=== PATIENT | female | born 1935 | race Caucasian/White ===

== ENCOUNTER 2018-02-17 12:08 | Inpatient (IN) | payer MEDICARE ==
[~2018-02-17] VITALS: Ht 157.5 cm; Wt 88.9 kg
[~2018-02-17 12:08] MED LIST: ACET325T38 PO; ALLO100T PO; BMT1T PO; CITA10TA7 PO; FENO134C PO; HYDR12.5 PO; HYDR25TA4 PO; LISI1TAB10 PO; MELO-195 PO; METR500T21 PO; OMEP20TA2 PO; SACC250C PO
[2018-02-17 12:25] LABS: BASOPHILS % (AUTO) 0 % (0-10); EOSINOPHILS % (AUTO) 0 % (0-10); HEMATOCRIT 39 % (35-52); HEMOGLOBIN 13.1 G/DL (11.5-16.0); LYMPHOCYTES # (AUTO) 0.5 X 10^3 (1.0-4.0); LYMPHOCYTES % (AUTO) 5 % (12-44); MEAN CORPUSCULAR HEMOGLOBIN 31 PG (25-34); MEAN CORPUSCULAR HGB CONC 34 G/DL (32-36); MEAN CORPUSCULAR VOLUME 93 FL (80-99); MEAN PLATELET VOLUME 11.2 FL (7.4-10.4); MONOCYTES # (AUTO) 0.6 X 10^3 (0.0-1.0); MONOCYTES % (AUTO) 6 % (0-12); NEUTROPHILS # (AUTO) 8.8 X 10^3 (1.8-7.8); NEUTROPHILS % (AUTO) 88 % (42-75); PLATELET COUNT 152 10^3/uL (130-400); RED BLOOD COUNT 4.22 10^6/uL (4.35-5.85); RED CELL DISTRIBUTION WIDTH 16.7 % (10.0-14.5)
[2018-02-17 12:44] LABS: ALANINE AMINOTRANSFERASE 64 U/L (0-55); ALBUMIN 3.8 GM/DL (3.2-4.5); ALKALINE PHOSPHATASE 93 U/L (40-136); BILIRUBIN,TOTAL 1.2 MG/DL (0.1-1.0); BUN/CREATININE RATIO 19; CALCIUM 11.1 MG/DL (8.5-10.1); CARBON DIOXIDE 27 MMOL/L (21-32); CHLORIDE 102 MMOL/L (98-107); CREATININE SERUM 0.83 MG/DL (0.60-1.30); GFR ESTIMATED > 60; GLUCOSE 123 MG/DL (70-105); POTASSIUM 3.5 MMOL/L (3.6-5.0); SODIUM 137 MMOL/L (135-145); TOTAL PROTEIN 6.3 GM/DL (6.4-8.2)
--- NOTE | 2018-02-17 12:47 | Diagnostic Imaging Report ---
PROCEDURE: CT head and CT cervical spine without contrast. TECHNIQUE: Multiple contiguous axial images were obtained through the brain and cervical spine without the use of intravenous contrast. Sagittal and coronal reformations through the cervical spine were then performed. INDICATION: Head and neck pain, found down. COMPARISON: None. CT HEAD: The ventricles are normal in size, shape and position. There is no midline shift or mass effect. There is no hemorrhage or evidence of acute ischemia. No cerebral edema is identified. Chronic small vessel ischemic changes are present. There is no skull fracture. Paranasal sinuses and mastoids are clear. IMPRESSION: No acute intracranial abnormalities. CT CERVICAL SPINE: Alignment is normal. There is no subluxation or fracture. No osseous lesion seen. Moderate degenerative changes are seen throughout. There is no paraspinous mass. IMPRESSION: No traumatic malalignment or fracture. Dictated by: Dictated on workstation # [id number]
[2018-02-17 12:48] LABS: LYMPHOCYTES % (MANUAL) 3 %; MONOCYTES % (MANUAL) 10 %; NEUTROPHILS % (MANUAL) 87 %; RBC MORPH NORMAL
--- NOTE | 2018-02-17 13:01 | Diagnostic Imaging Report ---
INDICATION: Found down, confusion. COMPARISON: None. FINDINGS: A single view of the pelvis demonstrates no fracture or dislocation. Articular surfaces are age-appropriate. No osseous lesion. IMPRESSION: No fracture or dislocation. Dictated by: Dictated on workstation # [id number]
--- NOTE | 2018-02-17 13:01 | ED Fall/Injury ---
General Chief Complaint: Trauma-Non Activation Stated Complaint: FALL Nursing Triage Note: patient was found on floor this morning by son, patient reports being found on the side of the bed this morning Source: patient, family, EMS Exam Limitations: no limitations History of Present Illness Date Seen by Provider: Feb 17, 2018 Time Seen by Provider: 12:10 Initial Comments This 82-year-old woman presents to the emergency room via EMS after being found on the floor in her home. She is suspected of having fallen sometime this morning. Family thinks she fell while trying to get ready this morning because the drawers on her dresser were pulled out. Patient seems to think she fell out of bed. She is alert but a little confused. Last known well time per family was sometime yesterday evening. She has contusions on the right side of her face. She was also noted to have a large bruise on the right lower back. She denies any neck pain or tenderness. She was ambulatory with assistance at home for EMS. She is normally self-sufficient living at home alone. She appears anxious. Family does note the patient has a large liver tumor. Patient elected not to pursue biopsy or treatment of this mass. Allergies and Home Medications Allergies Coded Allergies: No Known Drug Allergies (Unverified , 10/04/13) Home Medications Acetaminophen 325 Mg Tablet, 325 MG PO Q6H, (Reported) Allopurinol 100 Mg Tablet, 100 MG PO DAILY, (Reported) Citalopram Hydrobromide 10 Mg Tablet, 10 MG PO DAILY, (Reported) HAS NOT STARTED THIS MEDICATION PRIOR TO ADMISSION (DOES HAVE AT HOME) Fenofibrate,Micronized 134 Mg Capsule, 134 MG PO DAILY, (Reported) Hydrochlorothiazide 12.5 Mg Capsule, 25 MG PO DAILY, (Reported) INCREASED TO 25 MG / TAKING 2 (12.5 MG) TABLETS Metronidazole 500 Mg Tablet, 500 MG PO TID Prescribed by: AWA NIXON on 05/09/17 0812 Saccharomyces Boulardii 250 Mg Capsule, 250 MG PO BID, (Reported) Patient Home Medication List Home Medication List Reviewed: Yes Constitutional: no symptoms reported Eyes: No Symptoms Reported Ears, Nose, Mouth, Throat: see HPI Respiratory: no symptoms reported Gastrointestinal: no symptoms reported Genitourinary: no symptoms reported : No Musculoskeletal: see HPI Skin: see HPI Psychiatric/Neurological: See HPI Past Mwsoisy-Bpebno-Majtdy Hx Patient Social History Alcohol Use: Denies Use Recreational Drug Use: No 2nd Hand Smoke Exposure: No Recent Foreign Travel: No Contact w/Someone Who Travel: No Recent Infectious Disease Expo: No Recent Hopitalizations: No Immunizations Up To Date Tetanus Booster (TDap): Unknown Date of Pneumonia Vaccine: Aug 20, 2013 Date of Influenza Vaccine: Sep 01, 2016 Seasonal Allergies Seasonal Allergies: No Surgeries History of Surgeries: Yes (henry total knee replacement; rectal fistula) Surgeries: Gallbladder, Hysterectomy, Orthopedic Respiratory History of Respiratory Disorde: No Currently Using CPAP: No Currently Using BIPAP: No Cardiovascular History of Cardiac Disorders: Yes (edema to lower ext) Neurological History of Neurological Disord: No 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 Genitourinary History of Genitourinary Disor: No Gastrointestinal History of Gastrointestinal Di: Yes Gastrointestinal Disorders: C-Diff Musculoskeletal History of Musculoskeletal Dis: Yes (ARTHRITIS) Musculoskeletal Disorders: Arthritis Endocrine History of Endocrine Disorders: No HEENT History of HEENT Disorders: No Cancer History of Cancer: Yes (recent diagnosis; no treatment at this time) Cancer: Liver Did You Recieve Any Treatments: No Psychosocial History of Psychiatric Problem: Yes Behavioral Health Disorders: Anxiety, Depression Integumentary History of Skin or Integumenta: No (rash-lt lower leg) Skin/Integumentary Disorders: Recent Skin Changes Blood Transfusions History of Blood Disorders: No Family Medical History Family Medial History: Arthritis 19 MOTHER CVA 19 FATHER Cardiovascular disease G8 SISTER FH: colon cancer 19 MOTHER FH: prostate cancer 19 FATHER Irritable bowel syndrome daughter Renal stone 19 FATHER daughter Physical Exam Vital Signs Vital Signs - First Documented 02/17/18 12:11 Temp 100.0 Pulse 66 Resp 18 B/P (MAP) 134/72 (92) Pulse Ox 98 Capillary Refill : Less Than 3 Seconds General Appearance: WD/WN, mild distress (anxious) HEENT: PERRL/EOMI, other (ecchymosis to the right side of her face and scalp. No dental injury. Parent by injury to the tip of her tongue. 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 Finger to nose normal) Skin: warm/dry, ecchymosis (right side of face and right lower back) [place] Coma Score Best Eye Response: (4) Open Spontaneously Best Verbal Response: (4) Confused Conversation Best Motor Response: (6) Obeys Commands Kassandra Total: 14 Progress/Results/Core Measures Results/Orders Lab Results Laboratory Tests Test 02/17/18 12:15 Range/Units White Blood Count 10.0 4.3-11.0 10^3/uL Red Blood Count 4.22 L 4.35-5.85 10^6/uL Hemoglobin 13.1 11.5-16.0 G/DL Hematocrit 39 35-52 % Mean Corpuscular Volume 93 80-99 FL Mean Corpuscular Hemoglobin 31 25-34 PG Mean Corpuscular Hemoglobin Concent 34 32-36 G/DL Red Cell Distribution Width 16.7 H 10.0-14.5 % Platelet Count 152 130-400 10^3/uL Mean Platelet Volume 11.2 H 7.4-10.4 FL Neutrophils (%) (Auto) 88 H 42-75 % Lymphocytes (%) (Auto) 5 L 12-44 % Monocytes (%) (Auto) 6 0-12 % Eosinophils (%) (Auto) 0 0-10 % Basophils (%) (Auto) 0 0-10 % Neutrophils # (Auto) 8.8 H 1.8-7.8 X 10^3 Lymphocytes # (Auto) 0.5 L 1.0-4.0 X 10^3 Monocytes # (Auto) 0.6 0.0-1.0 X 10^3 Eosinophils # (Auto) 0.0 0.0-0.3 10^3/uL Basophils # (Auto) 0.0 0.0-0.1 10^3/uL Neutrophils % (Manual) 87 % Lymphocytes % (Manual) 3 % Monocytes % (Manual) 10 % Blood Morphology Comment NORMAL Sodium Level 137 135-145 MMOL/L Potassium Level 3.5 L 3.6-5.0 MMOL/L Chloride Level 102 98-107 MMOL/L Carbon Dioxide Level 27 21-32 MMOL/L Anion Gap 8 5-14 MMOL/L Blood Urea Nitrogen 16 7-18 MG/DL Creatinine 0.83 0.60-1.30 MG/DL Estimat Glomerular Filtration Rate > 60 BUN/Creatinine Ratio 19 Glucose Level 123 H 70-105 MG/DL Calcium Level 11.1 H 8.5-10.1 MG/DL Total Bilirubin 1.2 H 0.1-1.0 MG/DL Aspartate Amino Transf (AST/SGOT) 128 H 5-34 U/L Alanine Aminotransferase (ALT/SGPT) 64 H 0-55 U/L Alkaline Phosphatase 93 40-136 U/L Total Creatine Kinase 1416 H 29-168 U/L Total Protein 6.3 L 6.4-8.2 GM/DL Albumin 3.8 3.2-4.5 GM/DL My Orders Orders - LUIS TOBIN MD Ct Head/Cervical Spine Wo (02/17/18 12:20) Chest 1 View, Ap/Pa Only (02/17/18 12:20) Elbow, Right, 3 Views (02/17/18 12:20) Pelvis (02/17/18 12:20) Cbc With Automated Diff (02/17/18 12:21) Comprehensive Metabolic Panel (02/17/18 12:21) Ua Culture If Indicated (02/17/18 12:21) Manual Differential (02/17/18 12:15) Creatine Kinase (02/17/18 13:04) Saline Lock/Iv-Start (02/17/18 13:37) Ns Iv 1000 Ml (Sodium Chloride 0.9%) (02/17/18 13:37) Ct Chest/Abdomen/Pelvis W (02/17/18 14:19) Iohexol Injection (Omnipaque 350 Mg/Ml 1 (02/17/18 14:30) Ns (Ivpb) (Sodium Chloride 0.9% Ivpb Bag (02/17/18 14:30) Medications Given in ED Current Medications Medications Dose Ordered Sig/Sunita Route Start Time Stop Time Status Last Admin Dose Admin Iohexol 100 ml ONCE ONCE IV 02/17/18 14:30 02/17/18 14:31 DC 02/17/18 14:37 100 ML Sodium Chloride 100 ml ONCE ONCE IV 02/17/18 14:30 02/17/18 14:31 DC 02/17/18 14:37 100 ML Vital Signs/I&O Vital Sign - Last 12Hours 02/17/18 12:11 Temp 100.0 Pulse 66 Resp 18 B/P (MAP) 134/72 (92) Pulse Ox 98 Blood Pressure Mean: 92 Progress Note : Progress Note Patient received a liter of IV fluids in the emergency room. Rhabdomyolysis was noted on labs. Patient did not produce a urine specimen in the ER. A UA was ordered for the floor. Imaging was unremarkable for acute injury. Dr. Vallejo was consulted as trauma surgeon remediation technician. Diagnostic Imaging Diagonstic Imaging: CT Plain Films/CT/US/NM/MRI: c-spine, head Comments CT head and cervical spine viewed by me and report reviewed. See report below: NAME: JESSICA PAYAN [facility] REC#: [id number] PT STATUS: REG ER : 1935 PHYSICIAN: LUIS TOBIN MD ADMIT DATE: 02/17/18/ER Draft Date of Exam:02/17/18 CT HEAD/CERVICAL SPINE WO PROCEDURE: CT head and CT cervical spine without contrast. TECHNIQUE: Multiple contiguous axial images were obtained through the brain and cervical spine without the use of intravenous contrast. Sagittal and coronal reformations through the cervical spine were then performed. INDICATION: Head and neck pain, found down. COMPARISON: None. CT HEAD: The ventricles are normal in size, shape and position. There is no midline shift or mass effect. There is no hemorrhage or evidence of acute ischemia. No cerebral edema is identified. Chronic small vessel ischemic changes are present. There is no skull fracture. Paranasal sinuses and mastoids are clear. IMPRESSION: No acute intracranial abnormalities. CT CERVICAL SPINE: Alignment is normal. There is no subluxation or fracture. No osseous lesion seen. Moderate degenerative changes are seen throughout. There is no paraspinous mass. IMPRESSION: No traumatic malalignment or fracture. Dictated on workstation # [id number] Dict: 02/17/18 1241 Trans: 02/17/18 1247 [facility] [id number] Interpreted by: AWA MOORE Diagonstic Imaging: CT Plain Films/CT/US/NM/MRI: chest, abdomen, pelvis Comments CT chest, abdomen and pelvis viewed by me and report reviewed. See report below : NAME: JESSICA PAYAN [facility] REC#: [id number] PT STATUS: REG ER : 1935 PHYSICIAN: LUIS TOBIN MD ADMIT DATE: 02/17/18/ER Signed Date of Exam:02/17/18 CT CHEST/ABDOMEN/PELVIS W PROCEDURE: CT chest, abdomen, and pelvis with contrast. TECHNIQUE: Multiple contiguous axial images were obtained through the chest, abdomen, and pelvis after the administration of intravenous contrast. INDICATION: Confusion, found down. COMPARISON: None. CT chest: The heart and mediastinal structures are normal. There is no mediastinal hematoma or pericardial effusion. Coronary artery disease is present. There is no lymphadenopathy. The lungs are clear, bilaterally. No pneumothorax, effusion or contusion is seen. There is no acute bony abnormality. IMPRESSION: Cardiac enlargement with coronary artery disease; otherwise, negative CT chest. CT abdomen/pelvis: There is a peripherally enhancing mass in the right hepatic lobe of the liver which has the CT characteristics of a benign hemangioma. The mass measures approximately 7 cm. There is no hematoma. Otherwise, liver is unremarkable. The spleen, pancreas, adrenal glands, kidneys, vascular structures and bowel are unremarkable. There is no free air or free fluid. No hemoperitoneum is seen. Distal ureters and urinary bladder are normal. Uterus is surgically absent. The osseous structures are normal. There is no fracture. IMPRESSION: 1. Right hepatic lobe liver hemangioma. ?. No acute trauma within the abdomen or pelvis. 3. Surgically absent uterus and gallbladder. Dictated by: Dictated on workstation # [id number] Dict: 02/17/18 1458 Trans: 02/17/18 1537 [facility] [id number] Interpreted by: AWA MOORE Electronically signed by: AWA MOORE 02/17/18 1537 Departure Impression Impression: Primary Impression: Rhabdomyolysis Qualified Codes: T79.6XXA - Traumatic ischemia of muscle, initial encounter Additional Impressions: Fall on same level Qualified Codes: W18.30XA - Fall on same level, unspecified, initial encounter Confusion Disposition: ADMITTED INPATIENT Condition: Stable Admissions Decision to Admit Reason: Admit from ER (General) Decision to Admit/Date: Feb 17, 2018 Time/Decision to Admit Time: 13:35 Departure-Patient Inst. Referrals: AWA NIXON MD (PCP/Family) Primary Care Physician LUIS TOBIN MD Feb 17, 2018 13:01
--- NOTE | 2018-02-17 13:02 | Diagnostic Imaging Report ---
INDICATION: Found down. Right elbow pain. COMPARISON: None. FINDINGS: Three views of the right elbow demonstrate no fracture or dislocation. Articular surfaces are normal. There is no joint effusion. IMPRESSION: Negative right elbow. Dictated by: Dictated on workstation # [id number]
--- NOTE | 2018-02-17 13:02 | Diagnostic Imaging Report ---
INDICATION: Confusion, found down. COMPARISON: 05/04/2017. Single view of the chest demonstrates cardiac enlargement with slight central vascular congestion. There is no pneumothorax or effusion. Osseous structures are normal. IMPRESSION: Cardiac enlargement with central vascular congestion. Dictated by: Dictated on workstation # [id number]
[2018-02-17] MEDS ORDERED: NS IV 1000 ML 1,000 ML IV SCH ×2 (13:37→20:15)
[2018-02-17] MEDS ORDERED: IOHEXOL 350 MG/ML 100 ML (OMNIPAQUE 350) VIAL IV ONE (14:30)
[2018-02-17] MEDS ORDERED: NS 100 ML (IVPB) BAG IV ONE (14:30)
--- NOTE | 2018-02-17 15:06 | Consultation ---
History of Present Illness History of Present Illness Patient Consulted On(black/time) 02/17/18 15:04 Date Seen by Provider: Feb 17, 2018 Time Seen by Provider: 12:41 History of Present Illness Seen and evaluated in ED Consult requested by Dr. Walker Patient is an 82 year old female found on the floor in her bedroom. She is unsure how long she was laying there. Unknown loss of consciousness. Has bruising right forehead/temporal region with hematoma. Pain in the right flank area. Also some pain to the right elbow. Patient family at bedside and feel she is slightly confused to her baseline. CT head spine no acute process. right elbow no acute process, chest and pelvis xray no acute process, ct chest abdomen pelvis no acute process. Allergies and Home Medications Allergies Coded Allergies: No Known Drug Allergies (Unverified , 10/04/13) Home Medications Acetaminophen 325 Mg Tablet, 325 MG PO Q6H PRN for PAIN-MILD TO MODERATE, ( Reported) Allopurinol 100 Mg Tablet, 100 MG PO DAILY, (Reported) Citalopram Hydrobromide 10 Mg Tablet, 10 MG PO DAILY, (Reported) Fenofibrate,Micronized 134 Mg Capsule, 134 MG PO DAILY, (Reported) Hydrochlorothiazide 25 Mg Tablet, 25 MG PO DAILY, (Reported) Metronidazole 250 Mg Tablet, 250 MG PO BID, (Reported) Saccharomyces Boulardii 250 Mg Capsule, 250 MG PO BID, (Reported) Patient Home Medication List Home Medication List Reviewed: Yes Past Caklwug-Cutqzo-Rfyezz Hx Patient Social History Alcohol Use: Denies Use Recreational Drug Use: No 2nd Hand Smoke Exposure: No Recent Foreign Travel: No Contact w/Someone Who Travel: No Recent Infectious Disease Expo: No Recent Hopitalizations: No Immunizations Up To Date Tetanus Booster (TDap): Unknown Date of Pneumonia Vaccine: Aug 20, 2013 Date of Influenza Vaccine: Sep 01, 2016 Seasonal Allergies Seasonal Allergies: No Surgeries History of Surgeries: Yes (henry total knee replacement; rectal fistula) Surgeries: Gallbladder, Hysterectomy, Orthopedic Respiratory History of Respiratory Disorde: No Cardiovascular History of Cardiac Disorders: Yes (edema to lower ext) Neurological History of Neurological Disord: No 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 Genitourinary History of Genitourinary Disor: No Gastrointestinal History of Gastrointestinal Di: Yes Gastrointestinal Disorders: C-Diff Musculoskeletal History of Musculoskeletal Dis: Yes (ARTHRITIS) Musculoskeletal Disorders: Arthritis Endocrine History of Endocrine Disorders: No HEENT History of HEENT Disorders: No Cancer History of Cancer: Yes (recent diagnosis; no treatment at this time) Cancer: Liver Psychosocial History of Psychiatric Problem: Yes Behavioral Health Disorders: Anxiety, Depression Integumentary History of Skin or Integumenta: No (rash-lt lower leg) Skin/Integumentary Disorders: Recent Skin Changes Blood Transfusions History of Blood Disorders: No Family Medical History Significant Family History: No Pertinent Family Hx Family Medial History: Arthritis 19 MOTHER CVA 19 FATHER Cardiovascular disease G8 SISTER FH: colon cancer 19 MOTHER FH: prostate cancer 19 FATHER Irritable bowel syndrome daughter Renal stone 19 FATHER daughter Review of Systems-General Constitutional: no symptoms reported EENTM: no symptoms reported Respiratory: no symptoms reported Cardiovascular: no symptoms reported Gastrointestinal: no symptoms reported Genitourinary: no symptoms reported Musculoskeletal: back pain Skin: other (bruising right flank and right head) Psychiatric/Neurological: No Symptoms Reported Physical Exam-General Problems Physical Exam Vital Signs Vital Signs - First Documented 02/17/18 12:11 Temp 100.0 Pulse 66 Resp 18 B/P (MAP) 134/72 (92) Pulse Ox 98 Capillary Refill : Less Than 3 Seconds General Appearance: no apparent distress (GCS 14) HEENT: PERRL/EOMI, normal ENT inspection Neck: non-tender, full range of motion, supple, normal inspection Respiratory: normal breath sounds, no respiratory distress, no accessory muscle use Cardiovascular: regular rate, rhythm Gastrointestinal: non tender, soft, no organomegaly, no pulsatile mass, other ( right flank echymosis) Rectal: deferred Back: CVA tenderness (R) (echymosis) Extremities: non-tender, normal inspection Neurologic/Psychiatric: alert (answeres questions but slight confusion), normal mood/affect Skin: warm/dry, ecchymosis (right forehead/temoratl area, right flank) Data Review Labs Laboratory Tests 02/17/18 12:15: White Blood Count 10.0, Red Blood Count 4.22L, Hemoglobin 13.1, Hematocrit 39, Mean Corpuscular Volume 93, Mean Corpuscular Hemoglobin 31, Mean Corpuscular Hemoglobin Concent 34, Red Cell Distribution Width 16.7H, Platelet Count 152, Mean Platelet Volume 11.2H, Neutrophils (%) (Auto) 88H, Lymphocytes (%) (Auto) 5L, Monocytes (%) (Auto) 6, Eosinophils (%) (Auto) 0, Basophils (%) (Auto) 0, Neutrophils # (Auto) 8.8H, Lymphocytes # (Auto) 0.5L, Monocytes # (Auto) 0.6, Eosinophils # (Auto) 0.0, Basophils # (Auto) 0.0, Neutrophils % (Manual) 87, Lymphocytes % (Manual) 3, Monocytes % (Manual) 10, Blood Morphology Comment NORMAL, Sodium Level 137, Potassium Level 3.5L, Chloride Level 102, Carbon Dioxide Level 27, Anion Gap 8, Blood Urea Nitrogen 16, Creatinine 0.83, Estimat Glomerular Filtration Rate > 60, BUN/Creatinine Ratio 19, Glucose Level 123H, Calcium Level 11.1H, Total Bilirubin 1.2H, Aspartate Amino Transf (AST/SGOT) 128H, Alanine Aminotransferase (ALT/SGPT) 64H, Alkaline Phosphatase 93, Total Creatine Kinase 1416H, Total Protein 6.3L, Albumin 3.8 Assessment/Plan Assessment/Plan Assessment/Plan fall unknown loss of consciousness rhabdomyolysis patient with no acute injuries by radiological studies. Has rhabdo secondary to fall. patient admitted, IV hydration and repeat labs in am continue monitoring for any change in condition SILVIA BE DO Feb 17, 2018 15:06
--- NOTE | 2018-02-17 15:37 | Diagnostic Imaging Report ---
PROCEDURE: CT chest, abdomen, and pelvis with contrast. TECHNIQUE: Multiple contiguous axial images were obtained through the chest, abdomen, and pelvis after the administration of intravenous contrast. INDICATION: Confusion, found down. COMPARISON: None. CT chest: The heart and mediastinal structures are normal. There is no mediastinal hematoma or pericardial effusion. Coronary artery disease is present. There is no lymphadenopathy. The lungs are clear, bilaterally. No pneumothorax, effusion or contusion is seen. There is no acute bony abnormality. IMPRESSION: Cardiac enlargement with coronary artery disease; otherwise, negative CT chest. CT abdomen/pelvis: There is a peripherally enhancing mass in the right hepatic lobe of the liver which has the CT characteristics of a benign hemangioma. The mass measures approximately 7 cm. There is no hematoma. Otherwise, liver is unremarkable. The spleen, pancreas, adrenal glands, kidneys, vascular structures and bowel are unremarkable. There is no free air or free fluid. No hemoperitoneum is seen. Distal ureters and urinary bladder are normal. Uterus is surgically absent. The osseous structures are normal. There is no fracture. IMPRESSION: 1. Right hepatic lobe liver hemangioma. ?. No acute trauma within the abdomen or pelvis. 3. Surgically absent uterus and gallbladder. Dictated by: Dictated on workstation # [id number]
[2018-02-17 17:20] VITALS: BP 142/63
[2018-02-17 17:45] LABS: BILIRUBIN,URINE NEGATIVE (NEGATIVE); CLARITY,URINE CLEAR; COLOR,URINE YELLOW; GLUCOSE, URINE (UA) NEGATIVE (NEGATIVE); KETONES,URINE NEGATIVE (NEGATIVE); LEUKOCYTE ESTERASE ,URINE 1+ (NEGATIVE); NITRITE,URINE NEGATIVE (NEGATIVE); PH,URINE 8 (5-9); PROTEIN,URINE NEGATIVE (NEGATIVE); UROBILINOGEN,URINE NORMAL (NORMAL)
[2018-02-17] MEDS ORDERED: NS IV 1000 ML 1,000 ML ONE (17:47)
[2018-02-17 17:53] LABS: AMORPHOUS SEDIMENT,UR MOD AMOR PHOSPHATE /LPF; BACTERIA,URINE TRACE /HPF
[2018-02-17 19:30] VITALS: BP 140/65
[2018-02-17] MEDS ORDERED: METR250T PO (20:04)
[2018-02-17] MEDS ORDERED: ACETAMINOPHEN 500 MG TAB (TYLENOL) PO PRN (20:15)
[2018-02-17] MEDS ORDERED: ONDANSETRON 4 MG/2 ML (SDV) Z0FRAN IV PRN (20:15)
[2018-02-17] MEDS ORDERED: CATHETER FLUSH 10 ML SYR IV PRN (20:15)
[2018-02-17] MEDS ORDERED: SACCHAROMYCES BOULARDII 250 MG PO SCH (21:00)
[2018-02-17] MEDS: metroNIDAZOLE 250 MG (FLAGYL) TAB PO SCH (21:30)
[2018-02-17] MEDS: CATHETER FLUSH 10 ML SYR IV SCH (21:30)
[2018-02-17] MEDS: LACTOBACILLUS Acidoph/Bulgar (LACTINEX/FLORANEX) TAB PO SCH (21:30)
[2018-02-17] MEDS: NS IV 1000 ML 1,000 ML IV SCH (21:32)
--- NOTE | 2018-02-17 21:51 | History & Physicial ---
History of Present Illness History of Present Illness Reason for visit/HPI 82-year-old female admitted through emergency department after EMS brought patient in for evaluation. She had taken a fall in the morning on day of admission. Her daughters felt like she was trying to get ready and most likely she tripped on dresser drawers. The patient is better she can remember think she may have fell out of bed. She is somewhat confused. Patient was noted to have a fairly large bruise on her lower back on the right side. There was no reports of headache or any neck pain. Patient does have a tumor mass and at patient's request this has not been evaluated by biopsy. Date of Admission Feb 17, 2018 at 16:20 Date Seen by Provider: Feb 17, 2018 Time Seen by Provider: 22:00 I consulted on this patient on 02/17/18 21:47 Attending Physician Awa Nixon MD Admitting Physician Awa Nixon MD Consult Allergies and Home Medications Allergies Coded Allergies: No Known Drug Allergies (Unverified , 10/04/13) Home Medications Acetaminophen 325 Mg Tablet, 325 MG PO Q6H, (Reported) Allopurinol 100 Mg Tablet, 100 MG PO DAILY, (Reported) Citalopram Hydrobromide 10 Mg Tablet, 10 MG PO DAILY, (Reported) HAS NOT STARTED THIS MEDICATION PRIOR TO ADMISSION (DOES HAVE AT HOME) Fenofibrate,Micronized 134 Mg Capsule, 134 MG PO DAILY, (Reported) Hydrochlorothiazide 12.5 Mg Capsule, 25 MG PO DAILY, (Reported) INCREASED TO 25 MG / TAKING 2 (12.5 MG) TABLETS Metronidazole 250 Mg Tablet, 250 MG PO BID, (Reported) Saccharomyces Boulardii 250 Mg Capsule, 250 MG PO BID, (Reported) Patient Home Medication List Home Medication List Reviewed: Yes Past Spatpzb-Dqphij-Tzwkmj Hx Patient Social History Marrital Status: Alcohol Use: Denies Use Recreational Drug Use: No 2nd Hand Smoke Exposure: No Physical Abuse Screen: No Sexual Abuse: No Recent Foreign Travel: No Contact w/other who traveled: No Recent Hopitalizations: No Recent Infectious Disease Expo: No Immunizations Up To Date Tetanus Booster (TDap): Unknown Date of Pneumonia Vaccine: Aug 20, 2013 Date of Influenza Vaccine: Sep 01, 2017 Seasonal Allergies Seasonal Allergies: No Surgeries Yes (henry total knee replacement; rectal fistula) Gallbladder, Hysterectomy, Orthopedic Respiratory No Currently Using CPAP: No Currently Using BIPAP: No Cardiovascular Yes (edema to lower ext) Neurological No 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 Genitourinary No Gastrointestinal Yes C-Diff Musculoskeletal Yes (ARTHRITIS) Arthritis, Gout Endocrine History of Endocrine Disorders: No HEENT History of HEENT Disorders: Yes HEENT Disorders: Cataract Cancer Yes (recent diagnosis; 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 Did You Recieve Any Treatments: No Psychosocial History of Psychiatric Problem: Yes Behavioral Health Disorders: Anxiety, Depression Integumentary History of Skin or Integumenta: No (SHINGLES) Skin/Integumentary Disorders: Recent Skin Changes Blood Transfusions History of Blood Disorders: No Family Medical History Family Hx: Arthritis 19 MOTHER CVA 19 FATHER Cardiovascular disease G8 SISTER FH: colon cancer 19 MOTHER FH: prostate cancer 19 FATHER Irritable bowel syndrome daughter Renal stone 19 FATHER daughter Constitutional: see HPI Physical Exam Vital Signs Vital Signs - First Documented 02/17/18 02/17/18 12:11 17:45 Temp 100.0 Pulse 66 Resp 18 B/P (MAP) 134/72 (92) Pulse Ox 98 O2 Delivery Room Air Capillary Refill : Less Than 3 Seconds General Appearance: No Apparent Distress HEENT: PERRL/EOMI, Other (Tenderness of the right parietal region with slight bruising) Neck: Supple Respiratory: Lungs Clear Cardiovascular: Regular Rate, Rhythm, Normal Peripheral Pulses Gastrointestinal: Soft Rectal: Deferred Back: Other (Bruising noted to the right flank region) Neurologic/Psychiatric: Oriented x3 (But at times she does seem confused) Skin: Normal Color Assessment/Plan Assessment and Plan 1. Rhabdomyolysis most likely secondary to fall -Patient has IV fluids initiated in the ED. -She will have CK value rechecked in the morning. 2. Fall with resultant injury to the back. No apparent head trauma -Continue to monitor her symptoms -Surgical consultation was obtained in the ED. Problems: Admission Diagnosis 1. Rhabdomyolysis most likely secondary to fall 2. Fall with resultant injury to the back. No apparent head trauma Admission Status: Observation Reason for Inpatient Admission: IV fluid rehydration due to rhabdomyolysis Clinical Quality Measures DVT/VTE Risk/Contraindication: Risk Factor Score Per Nursin RFS Level Per Nursing on Admit: 4+=Very High AWA NIXON MD Feb 17, 2018 21:51
[2018-02-17 23:58] VITALS: BP 115/56
[2018-02-18 04:00] VITALS: BP 119/58
--- OUTSIDE RECORDS SUMMARY | 2018-02-18 04:39 | XMS REPORT ---
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 Name Role Phone WILLIEANTIONE Unavailable PROBLEMS Type Condition ICD9-CM Code [id number] Code Onset Dates Condition Status SNOMED Code Problem Need for prophylactic vaccination and inoculation, Influenza V04.81 Active 789004664 Problem Dental examination Z01.20 Active 574440836 Problem Encounter for dental examination Z01.20 Active 323809868 Problem Contact dermatitis and other eczema, due to unspecified cause 692.9 Active 21584474 Problem Pain in joint, ankle and foot 719.47 Active 280035855 Problem Unspecified disorder of kidney and ureter 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.9 Active 756819366 Problem Other specified local infections of skin and subcutaneous tissue 686.8 Active 953721017 ALLERGIES No Known Allergies SOCIAL HISTORY Never Assessed PLAN OF CARE Activity Details Follow Up 6 Months Reason:Recall VITAL SIGNS Heart Rate 73 bpm 2017-01-04 Blood pressure systolic 111 mmHg 2017-01-04 Blood pressure diastolic 56 mmHg 2017-01-04 MEDICATIONS Medication Instructions Dosage Frequency Start Date End Date Duration Status Bumetanide 1 MG Orally Once a day 1 tablet 24h March, Active Allopurinol 100 MG Orally Once a day 1 tablet 24h Active Fenofibrate 145 MG Orally Once a day by Oral route 24h March, Active Omeprazole 20 MG Orally Once a day by Oral route 24h March, Active Meloxicam 15 MG Orally Once a day by Oral route 24h March, Active Lisinopril-Hydrochlorothiazide 20-25 MG Orally Once a day 1 tablet 24h March, Active RESULTS No Results PROCEDURES Procedure Date Ordered Result Body Site PROPHYLAXIS - ADULT Jan 04, 2017 IMMUNIZATIONS No Known Immunizations MEDICAL (GENERAL) HISTORY Type Description Date Medical History High Blood Pressure Medical History Joint Replacement/both knees Medical History Arthritis Surgical History Knee Replacement Surgical History hysterectomy Surgical History appendectomy Surgical History cholecystectomy Hospitalization History Hospitalization for surgery only
--- OUTSIDE RECORDS SUMMARY | 2018-02-18 04:40 | XMS REPORT | Continuity of Care Document ---
Author Author [facility] Address Unknown Phone Unavailable Allergies Active Description Code Type Severity Reaction Onset Reported/Identified Relationship to Patient Clinical Status Yes No Known Drug Allergies [id number] Drug Allergy Unknown N/A 10/04/2013 Medications There is no data. Problems Date Dx Coded Attending Type Code Diagnosis Diagnosed By 06/25/2010 Ot 211.3 06/25/2010 Ot V16.0 06/25/2010 Ot V67.09 04/18/2012 692.9 DERMATITIS CONTACT UNSPECIFIED 04/18/2012 AVA BRYAN DDS 692.9 DERMATITIS CONTACT UNSPECIFIED 04/18/2012 MEZA DO TAMMY K 692.9 DERMATITIS CONTACT UNSPECIFIED 04/18/2012 MEZA DO, TAMMY K 692.9 DERMATITIS CONTACT UNSPECIFIED 04/18/2012 MADL HEAD BANQUET WAITER/WAITRESS, ARTURO L 692.9 DERMATITIS CONTACT UNSPECIFIED 09/04/2013 MEZA DO TAMMY K V04.81 FLU SHOT 09/04/2013 MEZA DO TAMMY K V04.81 FLU SHOT 09/04/2013 MADL HEAD BANQUET WAITER/WAITRESS, ARTURO L V04.81 FLU SHOT 10/04/2013 JULIENNE MILLIGAN MD Ot 211.3 10/04/2013 JULIENNE MILLIGAN MD Ot V16.0 10/04/2013 JULIENNE MILLIGAN MD Ot V76.51 12/08/2014 RADHA CHOWDHURY APRNA L 686.8 OTHER SPECIFIED LOCAL INFECTIONS OF SKIN AND SUBCUTANEOUS TISSUE 12/08/2014 POLA CHOWDHURY APRNWNYA L 719.47 PAIN IN JOINT INVOLVING ANKLE AND FOOT 11/02/2015 Ot V76.12 11/02/2015 Ot V76.12 11/02/2015 JULIENNE MILLIGAN MD Ot V72.84 11/02/2015 JULIENNE MILLIGAN MD Ot V72.84 11/25/2015 TOM ALFRED MD Ot Z12.31 04/24/2017 Tom Alfred 008.45 INTESTINAL INFECTION DUE TO CLOSTRIDIUM DIFFICILE 04/24/2017 Tom Alfred 719.06 EFFUSION OF LOWER LEG JOINT 04/24/2017 Tom Alfred 780.79 OTHER MALAISE AND FATIGUE 04/24/2017 Tom Alfred A04.7 ENTEROCOLITIS DUE TO CLOSTRIDIUM DIFFICILE 04/24/2017 Tom Alfred M25.461 EFFUSION, RIGHT KNEE 04/24/2017 Tom Alfred R53.81 OTHER MALAISE 05/08/2017 TOM ALFRED MD, Ot A04.7 ENTEROCOLITIS DUE TO CLOSTRIDIUM DIFFICI 05/09/2017 TOM ALFRED MD, Ot A04.7 ENTEROCOLITIS DUE TO CLOSTRIDIUM DIFFICI 05/09/2017 TOM ALFRED MD, Ot C22.9 MALIG NEOPLASM OF LIVER, NOT SPECIFIED A 05/09/2017 TOM ALFRED MD, Ot 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 05/09/2017 TOM ALFRED MD, Ot E66.9 OBESITY, UNSPECIFIED 05/09/2017 TOM ALFRED MD Ot E86.0 DEHYDRATION 05/09/2017 TOM ALFRED MD, Ot M19.91 PRIMARY OSTEOARTHRITIS, UNSPECIFIED SITE 05/09/2017 TOM ALFRED MD Ot R63.0 ANOREXIA 05/09/2017 TOM ALFRED MD Ot Z66 DO NOT RESUSCITATE 05/09/2017 TOM ALFRED MD, Ot Z68.35 BODY MASS INDEX (BMI) 35.0-35.9, ADULT 07/07/2017 Tom Alfred 008.45 07/07/2017 Tom Alfred 155.2 MALIGNANT NEOPLASM OF LIVER, NOT SPECIFIED PRIMARY OR SECONDARY 07/07/2017 Tom Alfred 401.0 MALIGNANT ESSENTIAL HYPERTENSION 07/07/2017 Tom Alfred 715.10 OSTEOARTHROSIS, LOCALIZED, PRIMARY, INVOLVING UNSPECIFIED SITE 07/07/2017 Tom Alfred 728.87 07/07/2017 Tom Alfred 783.21 LOSS OF WEIGHT 07/07/2017 Tom Alfred A04.72 ENTEROCOLITIS D/T CLOSTRIDIUM DIFFICILE, NOT SPCF RECUR 07/07/2017 Tom Alfred C22.9 MALIG NEOPLASM OF LIVER, NOT SPECIFIED PRIMARY OR SEC 07/07/2017 Tom Alfred I10 ESSENTIAL (PRIMARY) HYPERTENSION 07/07/2017 Tom Alfred M19.91 PRIMARY OSTEOARTHRITIS, UNSPECIFIED SITE 07/07/2017 Tom Alfred M62.81 MUSCLE WEAKNESS (GENERALIZED) 07/07/2017 Tom Alfred R63.4 ABNORMAL WEIGHT LOSS Procedures Code Description Performed By Performed On G0008 FLU ADMINISTRATION ( MEDICARE ONLY) 09/04/2013 71457 ROUTINE VENIPUNCTURE 12/08/2014 61620 THERAPUTIC INJ SQ/IM 12/08/2014 J0696 ROCEPHIN INJ 1 g 12/08/2014 13131 XRAY FOOT RIGHT 2 VIEWS 12/08/2014 90650 CBC 12/08/2014 32609 CMP 12/08/2014 09324 URIC ACID 12/08/2014 3241425 GFR CALC (RESULT ONLY) 12/08/2014 Results Test Result Range Complete blood count (CBC) with automated white blood cell (WBC) differential - 05/04/17 20:16 Blood leukocytes automated count (number/volume) 9.0 10*3/uL 4.3-11.0 Blood erythrocytes automated count (number/volume) 3.52 10*6/uL 4.35-5.85 Venous blood hemoglobin measurement (mass/volume) 9.8 g/dL 11.5-16.0 Blood hematocrit (volume fraction) 32 % 35-52 Automated erythrocyte mean corpuscular volume 90 [foz_us] 80-99 Automated erythrocyte mean corpuscular hemoglobin (mass per erythrocyte) 28 pg 25-34 Automated erythrocyte mean corpuscular hemoglobin concentration measurement ( mass/volume) 31 g/dL 32-36 Automated erythrocyte distribution width ratio 17.2 % 10.0-14.5 Automated blood platelet count (count/volume) 210 10*3/uL 130-400 Automated blood platelet mean volume measurement 10.4 [foz_us] 7.4-10.4 Automated blood neutrophils/100 leukocytes 90 % 42-75 Automated blood lymphocytes/100 leukocytes 5 % 12-44 Blood monocytes/100 leukocytes 4 % 0-12 Automated blood eosinophils/100 leukocytes 0 % 0-10 Automated blood basophils/100 leukocytes 0 % 0-10 Blood neutrophils automated count (number/volume) 8.2 10*3 1.8-7.8 Blood lymphocytes automated count (number/volume) 0.5 10*3 1.0-4.0 Blood monocytes automated count (number/volume) 0.4 10*3 0.0-1.0 Automated eosinophil count 0.0 10*3/uL 0.0-0.3 Automated blood basophil count (count/volume) 0.0 10*3/uL 0.0-0.1 Blood lactic acid measurement (moles/volume) - 05/04/17 20:16 Blood lactic acid measurement (moles/volume) 1.56 mmol/L 0.50-2.00 Blood manual differential performed detection - 05/04/17 20:16 Blood monocytes/100 leukocytes 4 % NRG Manual blood segmented neutrophils/100 leukocytes 76 % NRG Blood band neutrophils/100 leukocytes 10 % NRG Manual blood lymphocytes/100 leukocytes 10 % NRG Manual eosinophils/100 leukocytes in nose 0 % NRG Manual blood basophils/100 leukocytes 0 % NRG Blood erythrocyte morphology finding identification NORMAL [facility] Comprehensive metabolic panel - 05/04/17 20:16 Serum or plasma sodium measurement (moles/volume) 136 mmol/L 135-145 Serum or plasma potassium measurement (moles/volume) 3.5 mmol/L 3.6-5.0 Serum or plasma chloride measurement (moles/volume) 106 mmol/L 98-107 Carbon dioxide 21 mmol/L 21-32 Serum or plasma anion gap determination (moles/volume) 9 mmol/L 5-14 Serum or plasma urea nitrogen measurement (mass/volume) 13 mg/dL 7-18 Serum or plasma creatinine measurement (mass/volume) 0.85 mg/dL 0.60-1.30 Serum or plasma urea nitrogen/creatinine mass ratio 15 0 -20 Serum or plasma creatinine measurement with calculation of estimated glomerular filtration rate > NRG Serum or plasma glucose measurement (mass/volume) 138 mg/dL 70-105 Serum or plasma calcium measurement (mass/volume) 9.5 mg/dL 8.5-10.1 Serum or plasma total bilirubin measurement (mass/volume) 0.6 mg/dL 0.1-1.0 Serum or plasma alkaline phosphatase measurement (enzymatic activity/volume) 62 U/L 40-136 Serum or plasma aspartate aminotransferase measurement (enzymatic activity/ volume) 17 U/L 5-34 Serum or plasma alanine aminotransferase measurement (enzymatic activity/volume ) 9 U/L 0-55 Serum or plasma protein measurement (mass/volume) 5.7 g/dL 6.4-8.2 Serum or plasma albumin measurement (mass/volume) 3.1 g/dL 3.2-4.5 Serum or plasma troponin i.cardiac measurement (mass/volume) - 05/04/17 20:16 Serum or plasma troponin i.cardiac measurement (mass/volume) < ng/ mL <0.30 Serum or plasma lithium measurement (moles/volume) - 05/04/17 20:16 BNP level 65.6 pg/mL <100.0 Bacterial blood culture - 05/04/17 20:16 Bacterial blood culture NG NRG Bacterial blood culture - 05/04/17 20:45 Bacterial blood culture NG NRG Complete urinalysis with reflex to culture - 05/05/17 00:50 Urine color determination YELLOW NRG Urine clarity determination SLIGHTLY CLOUDY NRG Urine pH measurement by test strip 6 5-9 Specific gravity of urine by test strip 1.015 1.016- 1.022 Urine protein assay by test strip, semi-quantitative 2+ NEGATIVE Urine glucose detection by automated test strip NEGATIVE NEGATIVE Erythrocytes detection in urine sediment by light microscopy 3+ NEGATIVE Urine ketones detection by automated test strip NEGATIVE NEGATIVE Urine nitrite detection by test strip NEGATIVE NEGATIVE Urine total bilirubin detection by test strip NEGATIVE NEGATIVE Urine urobilinogen measurement by automated test strip (mass/volume) NORMAL NORMAL Urine leukocyte esterase detection by dipstick 3+ NEGATIVE Automated urine sediment erythrocyte count by microscopy (number/high power field) [HPF] NRG Automated urine sediment leukocyte count by microscopy (number/high power field ) [HPF] NRG Bacteria detection in urine sediment by light microscopy FEW NRG Squamous epithelial cells detection in urine sediment by light microscopy TNTC NRG Crystals detection in urine sediment by light microscopy NONE NRG Casts detection in urine sediment by light microscopy NONE NRG Mucus detection in urine sediment by light microscopy LARGE NRG Complete urinalysis with reflex to culture NO NRG C DIFFICILE AG + TOXIN A/B. - 05/05/17 02:45 CALL POSITIVES (F1 HELP) CALLED TO RERE/NURSE AT 0926, 6--/ KD NRG SPECIAL CONTACT SPECIAL CONTACT PRECAUTIONS NEEDED NRG RESULTS POSITIVE FOR ANTIGEN AND TOXIN A/B NRG Complete blood count (CBC) with automated white blood cell (WBC) differential - 05/05/17 04:33 Blood leukocytes automated count (number/volume) 5.4 10*3/uL 4.3-11.0 Blood erythrocytes automated count (number/volume) 3.41 10*6/uL 4.35-5.85 Venous blood hemoglobin measurement (mass/volume) 9.5 g/dL 11.5-16.0 Blood hematocrit (volume fraction) 30 % 35-52 Automated erythrocyte mean corpuscular volume 89 [foz_us] 80-99 Automated erythrocyte mean corpuscular hemoglobin (mass per erythrocyte) 28 pg 25-34 Automated erythrocyte mean corpuscular hemoglobin concentration measurement ( mass/volume) 31 g/dL 32-36 Automated erythrocyte distribution width ratio 17.2 % 10.0-14.5 Automated blood platelet count (count/volume) 191 10*3/uL 130-400 Automated blood platelet mean volume measurement 11.7 [foz_us] 7.4-10.4 Automated blood neutrophils/100 leukocytes 75 % 42-75 Automated blood lymphocytes/100 leukocytes 10 % 12-44 Blood monocytes/100 leukocytes 13 % 0-12 Automated blood eosinophils/100 leukocytes 1 % 0-10 Automated blood basophils/100 leukocytes 0 % 0-10 Blood neutrophils automated count (number/volume) 4.1 10*3 1.8-7.8 Blood lymphocytes automated count (number/volume) 0.6 10*3 1.0-4.0 Blood monocytes automated count (number/volume) 0.7 10*3 0.0-1.0 Automated eosinophil count 0.0 10*3/uL 0.0-0.3 Automated blood basophil count (count/volume) 0.0 10*3/uL 0.0-0.1 Comprehensive metabolic panel - 05/05/17 04:33 Serum or plasma sodium measurement (moles/volume) 137 mmol/L 135-145 Serum or plasma potassium measurement (moles/volume) 3.0 mmol/L 3.6-5.0 Serum or plasma chloride measurement (moles/volume) 107 mmol/L 98-107 Carbon dioxide 19 mmol/L 21-32 Serum or plasma anion gap determination (moles/volume) 11 mmol/L 5-14 Serum or plasma urea nitrogen measurement (mass/volume) 17 mg/dL 7-18 Serum or plasma creatinine measurement (mass/volume) 1.41 mg/dL 0.60-1.30 Serum or plasma urea nitrogen/creatinine mass ratio 12 0 -20 Serum or plasma creatinine measurement with calculation of estimated glomerular filtration rate 36 NRG Serum or plasma glucose measurement (mass/volume) 110 mg/dL 70-105 Serum or plasma calcium measurement (mass/volume) 9.6 mg/dL 8.5-10.1 Serum or plasma total bilirubin measurement (mass/volume) 0.7 mg/dL 0.1-1.0 Serum or plasma alkaline phosphatase measurement (enzymatic activity/volume) 55 U/L 40-136 Serum or plasma aspartate aminotransferase measurement (enzymatic activity/ volume) 22 U/L 5-34 Serum or plasma alanine aminotransferase measurement (enzymatic activity/volume ) 9 U/L 0-55 Serum or plasma protein measurement (mass/volume) 5.3 g/dL 6.4-8.2 Serum or plasma albumin measurement (mass/volume) 2.7 g/dL 3.2-4.5 Automated blood complete blood count (hemogram) panel - 05/06/17 04:27 Blood leukocytes automated count (number/volume) 15.8 10*3/uL 4.3-11.0 Blood erythrocytes automated count (number/volume) 3.26 10*6/uL 4.35-5.85 Venous blood hemoglobin measurement (mass/volume) 9.0 g/dL 11.5-16.0 Blood hematocrit (volume fraction) 29 % 35-52 Automated erythrocyte mean corpuscular volume 89 [foz_us] 80-99 Automated erythrocyte mean corpuscular hemoglobin (mass per erythrocyte) 28 pg 25-34 Automated erythrocyte mean corpuscular hemoglobin concentration measurement ( mass/volume) 31 g/dL 32-36 Automated erythrocyte distribution width ratio 17.7 % 10.0-14.5 Automated blood platelet count (count/volume) 205 10*3/uL 130-400 Automated blood platelet mean volume measurement 11.9 [foz_us] 7.4-10.4 Whole blood basic metabolic panel - 05/06/17 04:27 Serum or plasma sodium measurement (moles/volume) 140 mmol/L 135-145 Serum or plasma potassium measurement (moles/volume) 3.4 mmol/L 3.6-5.0 Serum or plasma chloride measurement (moles/volume) 110 mmol/L 98-107 Carbon dioxide 19 mmol/L 21-32 Serum or plasma anion gap determination (moles/volume) 11 mmol/L 5-14 Serum or plasma urea nitrogen measurement (mass/volume) 24 mg/dL 7-18 Serum or plasma creatinine measurement (mass/volume) 1.47 mg/dL 0.60-1.30 Serum or plasma urea nitrogen/creatinine mass ratio 16 0 -20 Serum or plasma creatinine measurement with calculation of estimated glomerular filtration rate 34 NRG Serum or plasma glucose measurement (mass/volume) 90 mg/dL 70-105 Serum or plasma calcium measurement (mass/volume) 9.7 mg/dL 8.5-10.1 Automated blood complete blood count (hemogram) panel - 05/07/17 04:17 Blood leukocytes automated count (number/volume) 16.1 10*3/uL 4.3-11.0 Blood erythrocytes automated count (number/volume) 3.07 10*6/uL 4.35-5.85 Venous blood hemoglobin measurement (mass/volume) 8.5 g/dL 11.5-16.0 Blood hematocrit (volume fraction) 28 % 35-52 Automated erythrocyte mean corpuscular volume 90 [foz_us] 80-99 Automated erythrocyte mean corpuscular hemoglobin (mass per erythrocyte) 28 pg 25-34 Automated erythrocyte mean corpuscular hemoglobin concentration measurement ( mass/volume) 31 g/dL 32-36 Automated erythrocyte distribution width ratio 17.3 % 10.0-14.5 Automated blood platelet count (count/volume) 194 10*3/uL 130-400 Automated blood platelet mean volume measurement 12.1 [foz_us] 7.4-10.4 Whole blood basic metabolic panel - 05/07/17 04:17 Serum or plasma sodium measurement (moles/volume) 141 mmol/L 135-145 Serum or plasma potassium measurement (moles/volume) 3.8 mmol/L 3.6-5.0 Serum or plasma chloride measurement (moles/volume) 116 mmol/L 98-107 Carbon dioxide 18 mmol/L 21-32 Serum or plasma anion gap determination (moles/volume) 7 mmol/L 5-14 Serum or plasma urea nitrogen measurement (mass/volume) 15 mg/dL 7-18 Serum or plasma creatinine measurement (mass/volume) 0.82 mg/dL 0.60-1.30 Serum or plasma urea nitrogen/creatinine mass ratio 18 0 -20 Serum or plasma creatinine measurement with calculation of estimated glomerular filtration rate > NRG Serum or plasma glucose measurement (mass/volume) 84 mg/dL 70-105 Serum or plasma calcium measurement (mass/volume) 9.3 mg/dL 8.5-10.1 Automated blood complete blood count (hemogram) panel - 05/08/17 06:45 Blood leukocytes automated count (number/volume) 8.5 10*3/uL 4.3-11.0 Blood erythrocytes automated count (number/volume) 3.04 10*6/uL 4.35-5.85 Venous blood hemoglobin measurement (mass/volume) 8.3 g/dL 11.5-16.0 Blood hematocrit (volume fraction) 27 % 35-52 Automated erythrocyte mean corpuscular volume 90 [foz_us] 80-99 Automated erythrocyte mean corpuscular hemoglobin (mass per erythrocyte) 27 pg 25-34 Automated erythrocyte mean corpuscular hemoglobin concentration measurement ( mass/volume) 30 g/dL 32-36 Automated erythrocyte distribution width ratio 17.3 % 10.0-14.5 Automated blood platelet count (count/volume) 156 10*3/uL 130-400 Automated blood platelet mean volume measurement 11.2 [foz_us] 7.4-10.4 Whole blood basic metabolic panel - 05/08/17 06:45 Serum or plasma sodium measurement (moles/volume) 140 mmol/L 135-145 Serum or plasma potassium measurement (moles/volume) 3.7 mmol/L 3.6-5.0 Serum or plasma chloride measurement (moles/volume) 114 mmol/L 98-107 Carbon dioxide 21 mmol/L 21-32 Serum or plasma anion gap determination (moles/volume) 5 mmol/L 5-14 Serum or plasma urea nitrogen measurement (mass/volume) 9 mg/dL 7-18 Serum or plasma creatinine measurement (mass/volume) 0.73 mg/dL 0.60-1.30 Serum or plasma urea nitrogen/creatinine mass ratio 12 0 -20 Serum or plasma creatinine measurement with calculation of estimated glomerular filtration rate > NRG Serum or plasma glucose measurement (mass/volume) 89 mg/dL 70-105 Serum or plasma calcium measurement (mass/volume) 9.1 mg/dL 8.5-10.1 Automated blood complete blood count (hemogram) panel - 05/09/17 06:26 Blood leukocytes automated count (number/volume) 7.1 10*3/uL 4.3-11.0 Blood erythrocytes automated count (number/volume) 3.11 10*6/uL 4.35-5.85 Venous blood hemoglobin measurement (mass/volume) 8.5 g/dL 11.5-16.0 Blood hematocrit (volume fraction) 28 % 35-52 Automated erythrocyte mean corpuscular volume 89 [foz_us] 80-99 Automated erythrocyte mean corpuscular hemoglobin (mass per erythrocyte) 27 pg 25-34 Automated erythrocyte mean corpuscular hemoglobin concentration measurement ( mass/volume) 31 g/dL 32-36 Automated erythrocyte distribution width ratio 17.3 % 10.0-14.5 Automated blood platelet count (count/volume) 155 10*3/uL 130-400 Automated blood platelet mean volume measurement 11.7 [foz_us] 7.4-10.4 Whole blood basic metabolic panel - 05/09/17 06:26 Serum or plasma sodium measurement (moles/volume) 142 mmol/L 135-145 Serum or plasma potassium measurement (moles/volume) 3.7 mmol/L 3.6-5.0 Serum or plasma chloride measurement (moles/volume) 114 mmol/L 98-107 Carbon dioxide 22 mmol/L 21-32 Serum or plasma anion gap determination (moles/volume) 6 mmol/L 5-14 Serum or plasma urea nitrogen measurement (mass/volume) 7 mg/dL 7-18 Serum or plasma creatinine measurement (mass/volume) 0.69 mg/dL 0.60-1.30 Serum or plasma urea nitrogen/creatinine mass ratio 10 0 -20 Serum or plasma creatinine measurement with calculation of estimated glomerular filtration rate > NRG Serum or plasma glucose measurement (mass/volume) 92 mg/dL 70-105 Serum or plasma calcium measurement (mass/volume) 9.3 mg/dL 8.5-10.1 Encounters ACCT No. Visit Date/Time Discharge Status Pt. Type Provider Facility Loc./Unit Complaint [id number] 12/08/2014 15:10:00 12/08/2014 23:59:59 [facility] Outpatient ARTURO CHOWDHURY APRN [id number] 08/27/2014 12:02:00 08/27/2014 23:59:59 CLS Outpatient TMAMY MEZA DO [id number] 09/04/2013 13:42:00 09/04/2013 23:59:59 CLS Outpatient TAMMY MEZA DO [id number] 07/17/2013 16:19:00 07/17/2013 23:59:59 CLS Outpatient AVA BRYAN DDS [id number] 07/16/2012 16:22:00 07/16/2012 23:59:59 CLS Outpatient [id number] 06/10/2017 00:00:00 07/07/2017 11:08:00 DIS Outpatient Tom Alfred [id number] 04/27/2017 14:02:00 05/02/2017 15:40:00 DIS Outpatient Tom Alfred [id number] 05/04/2017 22:14:00 05/09/2017 11:23:00 DIS Inpatient TOM ALFRED MD [facility] 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 [id number] 11/02/2015 09:46:00 11/02/2015 23:59:59 CLS Outpatient TOM ALFRED MD [facility] RAD [id number] 02/05/2014 07:31:00 02/05/2014 23:59:59 CLS Outpatient JULIENNE MILLIGAN MD [facility] PREOP [id number] 10/04/2013 07:00:00 10/04/2013 11:30:00 DIS Outpatient JULIENNE MILLIGAN MD [facility] [id number] 10/02/2013 09:29:00 10/02/2013 23:59:59 CLS Outpatient JULIENNE MILLIGAN MD [facility] PREOP [id number] 11/02/2015 09:45:00 Document Registration [id number] 08/28/2012 09:14:00 Document Registration [id number] 06/25/2010 11:26:00 Document Registration [id number] 06/04/2010 07:53:00 Document Registration [id number] 08/11/2017 15:00:00 08/11/2017 23:59:59 CLS Out[facility] [facility]
[2018-02-18] MEDS: NS IV 1000 ML 1,000 ML IV SCH ×2 (05:42→13:41)
[2018-02-18] MEDS: CATHETER FLUSH 10 ML SYR IV SCH ×3 (05:42→21:31)
[2018-02-18 05:54] LABS: BASOPHILS % (AUTO) 0 % (0-10); EOSINOPHILS % (AUTO) 0 % (0-10); HEMATOCRIT 31 % (35-52); HEMOGLOBIN 10.2 G/DL (11.5-16.0); LYMPHOCYTES # (AUTO) 0.9 X 10^3 (1.0-4.0); LYMPHOCYTES % (AUTO) 14 % (12-44); MEAN CORPUSCULAR HEMOGLOBIN 31 PG (25-34); MEAN CORPUSCULAR HGB CONC 33 G/DL (32-36); MEAN CORPUSCULAR VOLUME 93 FL (80-99); MEAN PLATELET VOLUME 11.4 FL (7.4-10.4); MONOCYTES # (AUTO) 0.7 X 10^3 (0.0-1.0); MONOCYTES % (AUTO) 10 % (0-12); NEUTROPHILS # (AUTO) 5.1 X 10^3 (1.8-7.8); NEUTROPHILS % (AUTO) 75 % (42-75); PLATELET COUNT 110 10^3/uL (130-400); RED BLOOD COUNT 3.32 10^6/uL (4.35-5.85); RED CELL DISTRIBUTION WIDTH 16.7 % (10.0-14.5); WHITE BLOOD COUNT 6.8 10^3/uL (4.3-11.0)
[2018-02-18 06:19] LABS: ALANINE AMINOTRANSFERASE 49 U/L (0-55); ALBUMIN 2.9 GM/DL (3.2-4.5); ALKALINE PHOSPHATASE 70 U/L (40-136); BILIRUBIN,TOTAL 1.2 MG/DL (0.1-1.0); BUN/CREATININE RATIO 15; CALCIUM 9.8 MG/DL (8.5-10.1); CARBON DIOXIDE 22 MMOL/L (21-32); CHLORIDE 108 MMOL/L (98-107); CREATINE KINASE 953 U/L (29-168); CREATININE SERUM 0.71 MG/DL (0.60-1.30); GFR ESTIMATED > 60; GLUCOSE 94 MG/DL (70-105); POTASSIUM 2.9 MMOL/L (3.6-5.0); SODIUM 138 MMOL/L (135-145); TOTAL PROTEIN 5.1 GM/DL (6.4-8.2)
[2018-02-18 08:00] VITALS: BP 131/63
[2018-02-18] MEDS: LACTOBACILLUS Acidoph/Bulgar (LACTINEX/FLORANEX) TAB PO SCH ×2 (09:39→20:56)
[2018-02-18] MEDS: KCL 10 MEQ TAB (MICRO K) PO SCH ×2 (09:39→20:57)
[2018-02-18] MEDS: metroNIDAZOLE 250 MG (FLAGYL) TAB PO SCH ×2 (09:42→20:57)
--- NOTE | 2018-02-18 09:44 | Progress Note (SOAP) ---
Subjective Date Seen by Provider: Feb 18, 2018 Time Seen by Provider: 08:20 Subjective/Events-last exam Patient had fairly uneventful evening. She still seems a little bit confused but overall probably better than admission. Objective Exam Vital Signs Date Time Temp Pulse Resp B/P (MAP) Pulse Ox O2 Delivery O2 Flow Rate FiO2 02/18/18 08:00 99.3 64 20 131/63 (85) 94 Room Air 02/18/18 04:00 99.1 69 18 119/58 (78) 95 Room Air 02/17/18 23:58 99.8 77 20 115/56 (75) 93 Room Air 02/17/18 20:00 Room Air 02/17/18 19:30 98.9 73 20 140/65 (90) 97 02/17/18 17:45 97 Room Air 02/17/18 17:20 99.8 61 20 142/63 (89) 97 02/17/18 12:11 100.0 66 18 134/72 (92) 98 I & O 02/18/18 07:00 Intake Total 2610 ml Output Total 900 ml Balance 1710 ml Capillary Refill : Less Than 3 Seconds General Appearance: No Apparent Distress HEENT: PERRL/EOMI, Other (Tenderness noted on the right scalp parietal region) Neck: Supple Respiratory: Lungs Clear Cardiovascular: Regular Rate, Rhythm Gastrointestinal: soft Skin: Normal Color, Other (Bruising still noted along the right flank region) Results Lab Laboratory Tests 02/17/18 12:15: White Blood Count 10.0, Red Blood Count 4.22L, Hemoglobin 13.1, Hematocrit 39, Mean Corpuscular Volume 93, Mean Corpuscular Hemoglobin 31, Mean Corpuscular Hemoglobin Concent 34, Red Cell Distribution Width 16.7H, Platelet Count 152, Mean Platelet Volume 11.2H, Neutrophils (%) (Auto) 88H, Lymphocytes (%) (Auto) 5L, Monocytes (%) (Auto) 6, Eosinophils (%) (Auto) 0, Basophils (%) (Auto) 0, Neutrophils # (Auto) 8.8H, Lymphocytes # (Auto) 0.5L, Monocytes # (Auto) 0.6, Eosinophils # (Auto) 0.0, Basophils # (Auto) 0.0, Neutrophils % (Manual) 87, Lymphocytes % (Manual) 3, Monocytes % (Manual) 10, Blood Morphology Comment NORMAL, Sodium Level 137, Potassium Level 3.5L, Chloride Level 102, Carbon Dioxide Level 27, Anion Gap 8, Blood Urea Nitrogen 16, Creatinine 0.83, Estimat Glomerular Filtration Rate > 60, BUN/Creatinine Ratio 19, Glucose Level 123H, Calcium Level 11.1H, Total Bilirubin 1.2H, Aspartate Amino Transf (AST/SGOT) 128H, Alanine Aminotransferase (ALT/SGPT) 64H, Alkaline Phosphatase 93, Total Creatine Kinase 1416H, Total Protein 6.3L, Albumin 3.8 02/17/18 17:33: Urine Color YELLOW, Urine Clarity CLEAR, Urine pH 8, Urine Specific [place] 1.010L, Urine Protein NEGATIVE, Urine Glucose (UA) NEGATIVE, Urine Ketones NEGATIVE, Urine Nitrite NEGATIVE, Urine Bilirubin NEGATIVE, Urine Urobilinogen NORMAL, Urine Leukocyte Esterase 1+H, Urine RBC (Auto) 1+H, Urine RBC NONE, Urine WBC NONE, Urine Squamous Epithelial Cells 10-25H, Urine Crystals NONE, Urine Amorphous Sediment MOD LATONYA PHOSPHATEH, Urine Bacteria TRACE, Urine Casts NONE, Urine Mucus NEGATIVE, Urine Culture Indicated NO 02/18/18 05:30: White Blood Count 6.8, Red Blood Count 3.32L, Hemoglobin 10.2#L, Hematocrit 31L , Mean Corpuscular Volume 93, Mean Corpuscular Hemoglobin 31, Mean Corpuscular Hemoglobin Concent 33, Red Cell Distribution Width 16.7H, Platelet Count 110L, Mean Platelet Volume 11.4H, Neutrophils (%) (Auto) 75, Lymphocytes (%) (Auto) 14 , Monocytes (%) (Auto) 10, Eosinophils (%) (Auto) 0, Basophils (%) (Auto) 0, Neutrophils # (Auto) 5.1, Lymphocytes # (Auto) 0.9L, Monocytes # (Auto) 0.7, Eosinophils # (Auto) 0.0, Basophils # (Auto) 0.0, Sodium Level 138, Potassium Level 2.9L, Chloride Level 108H, Carbon Dioxide Level 22, Anion Gap 8, Blood Urea Nitrogen 11, Creatinine 0.71, Estimat Glomerular Filtration Rate > 60, BUN/ Creatinine Ratio 15, Glucose Level 94, Calcium Level 9.8, Total Bilirubin 1.2H, Aspartate Amino Transf (AST/SGOT) 111H, Alanine Aminotransferase (ALT/SGPT) 49, Alkaline Phosphatase 70, Total Creatine Kinase 953H, Total Protein 5.1L, Albumin 2.9L Assessment/Plan Assessment/Plan Assess & Plan/Chief Complaint 1. Rhabdomyolysis most likely secondary to fall -Patient has IV fluids initiated in the ED. -She will have CK value rechecked in the morning. 02/18 -The CK is noted to decrease to 953 this morning -Recheck CK in the morning of February 19 -IV fluids were decreased to 80 mL since her hydration status is normalized and do not want to compromise pulmonary status 2. Hypokalemia -Oral replacement with potassium 10 mEq twice daily -Recheck BMP in the morning 3. Fall with resultant injury to the back. No apparent head trauma -Continue to monitor her symptoms -Surgical consultation was obtained in the ED. 02/18 -The bruising appears to be stable along the right flank area. She is only slightly tender with palpation. Clinical Quality Measures Admission Status Admission Dx 1. Rhabdomyolysis most likely secondary to fall 2. Fall with resultant injury to the back. No apparent head trauma DVT/VTE Risk/Contraindication: Risk Factor Score Per Nursin RFS Level Per Nursing on Admit: 4+=Very High AWA NIXON MD Feb 18, 2018 09:44
[2018-02-18] MEDS ORDERED: ACETAMINOPHEN 325 MG TABLET/CAPLET (TYLENOL) PO SCH (10:30)
[2018-02-18 12:00] VITALS: BP 136/62
[2018-02-18] MEDS ORDERED: HYDR25TA4 PO (14:04)
[2018-02-18] MEDS ORDERED: METR250T32 PO (14:04)
--- NOTE | 2018-02-18 15:08 | Progress Note ---
Subjective Date Seen by Provider: Feb 18, 2018 Time Seen by Provider: 10:27 Subjective/Events-last exam Patient states she's a little sore right side of face and right flank. She does not remember any events around her fall. She is alert and oriented. Ck trending down. Family at bedside state less confusion. Objective Exam Vital Signs Date Time Temp Pulse Resp B/P (MAP) Pulse Ox O2 Delivery O2 Flow Rate FiO2 02/18/18 08:00 99.3 64 20 131/63 (85) 94 Room Air 02/18/18 08:00 Room Air 02/18/18 04:00 99.1 69 18 119/58 (78) 95 Room Air 02/17/18 23:58 99.8 77 20 115/56 (75) 93 Room Air 02/17/18 20:00 Room Air 02/17/18 19:30 98.9 73 20 140/65 (90) 97 02/17/18 17:45 97 Room Air 02/17/18 17:20 99.8 61 20 142/63 (89) 97 I & O 02/18/18 07:00 Intake Total 2610 ml Output Total 900 ml Balance 1710 ml Capillary Refill : Less Than 3 Seconds General Appearance: No Apparent Distress HEENT: PERRL/EOMI, Other (Tenderness noted on the right scalp parietal region) Neck: Supple Respiratory: No Accessory Muscle Use, No Respiratory Distress Cardiovascular: Regular Rate, Rhythm Gastrointestinal: non tender, soft, no organomegaly, no pulsatile mass, other ( right flank echymosis) Extremity: Normal Inspection Neurologic/Psychiatric: Oriented x3 (oriented x 3 but seems to have some hesitation or confusion at times) Skin: Normal Color, Other (Bruising still noted along the right flank region) Lymphatic: No Adenopathy Results Lab Laboratory Tests 02/17/18 17:33: Urine Color YELLOW, Urine Clarity CLEAR, Urine pH 8, Urine Specific [place] 1.010L, Urine Protein NEGATIVE, Urine Glucose (UA) NEGATIVE, Urine Ketones NEGATIVE, Urine Nitrite NEGATIVE, Urine Bilirubin NEGATIVE, Urine Urobilinogen NORMAL, Urine Leukocyte Esterase 1+H, Urine RBC (Auto) 1+H, Urine RBC NONE, Urine WBC NONE, Urine Squamous Epithelial Cells 10-25H, Urine Crystals NONE, Urine Amorphous Sediment MOD LATONYA PHOSPHATEH, Urine Bacteria TRACE, Urine Casts NONE, Urine Mucus NEGATIVE, Urine Culture Indicated NO 4/1/18 05:30: White Blood Count 6.8, Red Blood Count 3.32L, Hemoglobin 10.2#L, Hematocrit 31L , Mean Corpuscular Volume 93, Mean Corpuscular Hemoglobin 31, Mean Corpuscular Hemoglobin Concent 33, Red Cell Distribution Width 16.7H, Platelet Count 110L, Mean Platelet Volume 11.4H, Neutrophils (%) (Auto) 75, Lymphocytes (%) (Auto) 14 , Monocytes (%) (Auto) 10, Eosinophils (%) (Auto) 0, Basophils (%) (Auto) 0, Neutrophils # (Auto) 5.1, Lymphocytes # (Auto) 0.9L, Monocytes # (Auto) 0.7, Eosinophils # (Auto) 0.0, Basophils # (Auto) 0.0, Sodium Level 138, Potassium Level 2.9L, Chloride Level 108H, Carbon Dioxide Level 22, Anion Gap 8, Blood Urea Nitrogen 11, Creatinine 0.71, Estimat Glomerular Filtration Rate > 60, BUN/ Creatinine Ratio 15, Glucose Level 94, Calcium Level 9.8, Total Bilirubin 1.2H, Aspartate Amino Transf (AST/SGOT) 111H, Alanine Aminotransferase (ALT/SGPT) 49, Alkaline Phosphatase 70, Total Creatine Kinase 953H, Total Protein 5.1L, Albumin 2.9L Assessment/Plan Assessment/Plan Assessment/Plan fall unknown loss of consciousness rhabdomyolysis hypokalemia patient with no acute injuries by radiological studies. Has rhabdo secondary to fall. patient improving compared to yesterday. IV fluids potassium being replaced no surgical intervention Clinical Quality Measures DVT/VTE Risk/Contraindication: Risk Factor Score Per Nursin RFS Level Per Nursing on Admit: 4+=Very High SILVIA BE DO Feb 18, 2018 15:08
[2018-02-18 16:55] VITALS: BP 154/67
[2018-02-18 20:10] VITALS: BP 154/68
[2018-02-18] MEDS: FENOFIBRATE 134 MG (LOFIBRA) CAPSULE PO SCH (20:57)
[2018-02-18] MEDS: ACETAMINOPHEN 325 MG TABLET/CAPLET (TYLENOL) PO PRN (21:31)
[2018-02-19] VITALS: BP 130/62
[2018-02-19] MEDS: NS IV 1000 ML 1,000 ML IV SCH ×2 (01:27→12:48)
[2018-02-19] MEDS: ACETAMINOPHEN 325 MG TABLET/CAPLET (TYLENOL) PO PRN ×3 (03:57→20:44)
[2018-02-19 04:00] VITALS: BP 155/66
[2018-02-19] MEDS: CATHETER FLUSH 10 ML SYR IV SCH ×3 (05:27→20:45)
[2018-02-19 07:14] LABS: BUN/CREATININE RATIO 11; CALCIUM 9.6 MG/DL (8.5-10.1); CARBON DIOXIDE 25 MMOL/L (21-32); CHLORIDE 110 MMOL/L (98-107); CREATINE KINASE 350 U/L (29-168); CREATININE SERUM 0.65 MG/DL (0.60-1.30); GFR ESTIMATED > 60; GLUCOSE 104 MG/DL (70-105); POTASSIUM 3.2 MMOL/L (3.6-5.0); SODIUM 139 MMOL/L (135-145)
[2018-02-19 08:00] VITALS: BP 157/66
[2018-02-19] MEDS: LACTOBACILLUS Acidoph/Bulgar (LACTINEX/FLORANEX) TAB PO SCH ×2 (08:21→20:29)
[2018-02-19] MEDS: metroNIDAZOLE 250 MG (FLAGYL) TAB PO SCH ×2 (08:21→20:29)
[2018-02-19] MEDS: KCL 10 MEQ TAB (MICRO K) PO SCH ×2 (08:21→20:30)
--- NOTE | 2018-02-19 08:29 | Progress Note (SOAP) ---
Subjective Date Seen by Provider: Feb 19, 2018 Time Seen by Provider: 08:00 Subjective/Events-last exam Patient still slightly confused. She is able to get up and use restroom. Objective Exam Vital Signs Date Time Temp Pulse Resp B/P (MAP) Pulse Ox O2 Delivery O2 Flow Rate FiO2 02/19/18 04:00 99.5 69 18 155/66 (95) 96 Room Air 02/19/18 00:30 99.1 02/19/18 00:00 100.2 80 19 130/62 (84) 94 Room Air 02/18/18 20:10 99.1 72 18 154/68 (96) 96 Room Air 02/18/18 19:50 Room Air 02/18/18 16:55 98.9 69 18 154/67 (96) 96 Room Air 02/18/18 12:00 97.9 58 18 136/62 (86) 96 Room Air I & O 02/19/18 07:00 Intake Total 1850 ml Output Total 1500 ml Balance 350 ml Capillary Refill : Less Than 3 Seconds General Appearance: No Apparent Distress Neck: Supple Respiratory: Lungs Clear Cardiovascular: Regular Rate, Rhythm Results Lab Laboratory Tests 02/19/18 05:50: Sodium Level 139, Potassium Level 3.2L, Chloride Level 110H, Carbon Dioxide Level 25, Anion Gap 4L, Blood Urea Nitrogen 7, Creatinine 0.65, Estimat Glomerular Filtration Rate > 60, BUN/Creatinine Ratio 11, Glucose Level 104, Calcium Level 9.6, Total Creatine Kinase 350H Assessment/Plan Assessment/Plan Assess & Plan/Chief Complaint 1. Rhabdomyolysis most likely secondary to fall -Patient has IV fluids initiated in the ED. -She will have CK value rechecked in the morning. 02/18 -The CK is noted to decrease to 953 this morning -Recheck CK in the morning of February 19 -IV fluids were decreased to 80 mL since her hydration status is normalized and do not want to compromise pulmonary status 02/19 -CK this morning is 350 -Recheck in the morning. 2. Hypokalemia -Oral replacement with potassium 10 mEq twice daily -Recheck BMP in the morning 3. Fall with resultant injury to the back. No apparent head trauma -Continue to monitor her symptoms -Surgical consultation was obtained in the ED. 02/18 -The bruising appears to be stable along the right flank area. She is only slightly tender with palpation. 4/2 -corporate services manager consult Clinical Quality Measures Admission Status Admission Dx 1. Rhabdomyolysis most likely secondary to fall 2. Fall with resultant injury to the back. No apparent head trauma DVT/VTE Risk/Contraindication: Risk Factor Score Per Nursin RFS Level Per Nursing on Admit: 4+=Very High AWA NIXON MD Feb 19, 2018 08:28
--- NOTE | 2018-02-19 09:47 | Physical Therapy Evaluation ---
PT Evaluation-General Medical Diagnosis Admission Date Feb 17, 2018 at 16:20 Medical Diagnosis: Rhabdomyelisis Onset Date: Feb 17, 2018 Therapy Diagnosis Therapy Diagnosis: generalized weakness/debility Height/Weight Height (Feet): 5 Height (Inches): 2.00 Weight (Pounds): 196 Weight (Ounces): 0.0 Precautions Precautions/Isolations: Fall Prevention, Standard Precautions Weight Bear Status Right Lower Extremity: Right Weight Bearing/Tolerated Left Lower Extremity: Left Weight Bearing/Tolerated Referral Physician: Tima Reason for Referral: Evaluation/Treatment Medical History Pertinent Medical History: Arthritis Current History fall at home/son found her on floor Reviewed History: Yes Social History Home: Single Level Current Living Status: Alone Entry Into Home: Stairs With Railing PT Steps Into Home: 3 Prior/Core FIM Prior Level of Function Functional Boundary Measure 0=Not Assessed/NA 4=Minimal Assistance 1=Total Assistance 5=Supervision or Setup 2=Maximal Assistance 6=Modified Boundary 3=Moderate Assistance 7=Complete Boundary Bed Mobility: 7 Transfers (B,C,W/C) (FIM): 7 Gait: 7 PT Evaluation-Current Subjective Patient c/o neck pain from fall. Agrees to PT. Pain Numeric Pain Scale: 5-Moderate Pain Location: Soft Tissue Location Body Site: Neck Pain Description: Ache Objective Patient Orientation: Normal For Age Problem Solving: Good Attachments: IV ROM/Strength ROM Lower Extremities bilateral LE WNL Strength Lower Extremities right knee flexion/extension 4/5; hip flexion 4/5; DF/PF 4/5 left knee flexion/extension 4/5; hip flexion 4/5; DF/PF 4/5 Integumentary/Posture Integumentary refer to nursing notes Bowel Incontinence: No Bladder Incontinence: No Posture WNL Neuromuscular (Tone, Coordination, Reflexes) grossly intact Sensory Vision: Functional Hearing: Functional Sensation Right Lower Extremit: Intact Sensation Left Lower Extremity: Intact Transfers Functional [place] Measure 0=Not Assessed/NA 4=Minimal Assistance 1=Total Assistance 5=Supervision or Setup 2=Maximal Assistance 6=Modified Boundary 3=Moderate Assistance 7=Complete Boundary Transfers (B, C, W/C) (FIM): 4 Scootin Rollin Supine to/from Sit: 4 Sit to/from Stand: 5 Gait Mode of Locomotion: Walk Anticipated Mode of Locomotion: Walk Gait (FIM): 5 Distance (FIM): 3=150 ft Distance: 350' Gait Level of Assist: 5 Gait Assistive Device: FWW Comments/Gait Description safe, steady, functional with FWW. Balance Sitting Static: Normal Sitting Dynamic: Normal Standing Static: Normal Standing Dynamic: Normal Assessment/Needs 82 y.o. female, will benefit from short term skilled PT to address functional mobility to ensure safe return to home at maximum LOF. PT instructed family and RN to ambulate with patient PRN in hallway. Rehab Potential: Good PT Manager [employer] Goals Longterm Goals PT Longterm Goals Time Frame: Feb 23, 2018 Transfers (B,C,W/C) (FIM): 6 Gait (FIM): 6 Gait distance (FIM): 3=150 ft Gait Level of Assist: 6 Gait Assistive Device: None, FWW PT Plan Problem List Problem List: Bed Mobility Treatment/Plan Treatment Plan: Continue Plan of Care Treatment Plan: Bed Mobility, Education, Functional Activity Merry, Functional Strength, Gait, Safety, Therapeutic Exercise, Transfers Treatment Duration: Feb 23, 2018 Frequency: 5 times per week Estimated Hrs Per Day: .25 hour per day Patient and/or Family Agrees t: Yes Discharge Recommendations Therapy D/C Recommendations: Physical Therapy Home Care Time/GCodes Time In: 904 Time Out: 920 Total Billed Treatment Time: 16 Total Billed Treatment 1 visit [facility] 16 min JANN POWELL PT Feb 19, 2018 09:47
[2018-02-19 12:00] VITALS: BP 148/66
--- NOTE | 2018-02-19 14:19 | Diagnostic Imaging Report ---
INDICATION: Recent fall. Now with increased confusion TECHNIQUE: Routine non contrast-enhanced axial images were obtained from the skull base to the vertex. COMPARISON: 02/17/2018 FINDINGS: The ventricles and cortical sulci are diffusely prominent, compatible with age-related volume loss. There are confluent areas of abnormal, low attenuation in the periventricular white matter. This is consistent with chronic small vessel ischemic changes. There is no midline shift or mass-effect. No acute intra-axial hemorrhage is seen. There are no abnormal areas of increased or decreased density to suggest acute hemorrhage or edema. No extra-axial masses or collections are present. The bony calvarium is intact. The visualized paranasal sinuses are unremarkable. The mastoid air cells are clear. IMPRESSION: 1. No acute intracranial abnormality. No CT evidence of mass, acute infarct or intracranial hemorrhage. 2. Chronic small vessel ischemic changes in the deep white matter. Dictated by: Dictated on workstation # [id number]
[2018-02-19 16:45] VITALS: BP 145/63
[2018-02-19 19:50] VITALS: BP 161/52
--- NOTE | 2018-02-19 20:01 | Progress Note ---
Subjective Date Seen by Provider: Feb 19, 2018 Time Seen by Provider: 13:08 Subjective/Events-last exam Patient states she's doing okay. She is having some hallucinations reported by daughter. She still with some discomfort right side of head. No chest or abdominal pain. Still with times of confusion. Denies n/v fever sweats chills shortness of breath or chest pain. Objective Exam Vital Signs Date Time Temp Pulse Resp B/P (MAP) Pulse Ox O2 Delivery O2 Flow Rate FiO2 02/19/18 16:45 98.3 61 18 145/63 (90) 95 Room Air 02/19/18 12:00 98.4 67 18 148/66 (93) 96 Room Air 02/19/18 08:00 96 Room Air 02/19/18 08:00 98.4 65 18 157/66 (96) 95 Room Air 02/19/18 04:00 99.5 69 18 155/66 (95) 96 Room Air 02/19/18 00:30 99.1 02/19/18 00:00 100.2 80 19 130/62 (84) 94 Room Air 02/18/18 20:10 99.1 72 18 154/68 (96) 96 Room Air I & O 02/19/18 07:00 Intake Total 1850 ml Output Total 1500 ml Balance 350 ml Capillary Refill : Less Than 3 Seconds General Appearance: No Apparent Distress HEENT: PERRL/EOMI, Other (Tenderness noted on the right scalp parietal region) Neck: Supple Respiratory: Lungs Clear Cardiovascular: Regular Rate, Rhythm Gastrointestinal: non tender, soft, no organomegaly, no pulsatile mass, other ( right flank echymosis) Extremity: Normal Inspection Neurologic/Psychiatric: Alert, Oriented x3 (oriented x 3 but seems to have some hesitation or confusion at times), Normal Mood/Affect, software support representative II-XII Norm as Tested Skin: Normal Color, Other (Bruising still noted along the right flank region) Lymphatic: No Adenopathy Results Lab Laboratory Tests 02/19/18 05:50: Sodium Level 139, Potassium Level 3.2L, Chloride Level 110H, Carbon Dioxide Level 25, Anion Gap 4L, Blood Urea Nitrogen 7, Creatinine 0.65, Estimat Glomerular Filtration Rate > 60, BUN/Creatinine Ratio 11, Glucose Level 104, Calcium Level 9.6, Total Creatine Kinase 350H Assessment/Plan Assessment/Plan Assessment/Plan Fall, Loss of consciousness, Rhabdomylolysis, Hypokalemia, confusion and hallucinations ck trending down- iv hydration will get repeat head due to confusion and hallucinations possible delayed bleed continue medical management Clinical Quality Measures DVT/VTE Risk/Contraindication: Risk Factor Score Per Nursin RFS Level Per Nursing on Admit: 4+=Very High SILVIA BE DO Feb 19, 2018 20:01
[2018-02-19] MEDS: FENOFIBRATE 134 MG (LOFIBRA) CAPSULE PO SCH (20:29)
[2018-02-20] VITALS: BP 158/62
[2018-02-20] MEDS: NS IV 1000 ML 1,000 ML IV SCH (02:28)
[2018-02-20] MEDS: CATHETER FLUSH 10 ML SYR IV SCH ×3 (04:57→20:30)
[2018-02-20 05:48] VITALS: BP 162/70
[2018-02-20 05:52] LABS: AMMONIA 26 UMOL/L (11-32); BUN/CREATININE RATIO 10; CALCIUM 9.3 MG/DL (8.5-10.1); CARBON DIOXIDE 20 MMOL/L (21-32); CHLORIDE 112 MMOL/L (98-107); CREATINE KINASE 174 U/L (29-168); CREATININE SERUM 0.63 MG/DL (0.60-1.30); GFR ESTIMATED > 60; GLUCOSE 86 MG/DL (70-105); PHOSPHORUS 1.3 MG/DL (2.3-4.7); POTASSIUM 3.5 MMOL/L (3.6-5.0); SODIUM 141 MMOL/L (135-145)
[2018-02-20 08:00] VITALS: BP 149/83
--- NOTE | 2018-02-20 08:18 | Progress Note (SOAP) ---
Subjective Date Seen by Provider: Feb 20, 2018 Time Seen by Provider: 07:55 Subjective/Events-last exam Patient had hallucinations last night according to daughter. Upon awakening this morning patient states that she is feeling fine however. Patient does still complain of her right parietal region still operator helper. Physical therapy worked with patient yesterday and she was able to walk according to daughter fairly well. Objective Exam Vital Signs Date Time Temp Pulse Resp B/P (MAP) Pulse Ox O2 Delivery O2 Flow Rate FiO2 02/20/18 05:48 99.1 61 19 162/70 (100) 97 Room Air 02/20/18 00:00 97.5 65 19 158/62 (94) 96 Room Air 02/19/18 19:50 98.6 60 18 161/52 (88) 96 Room Air 02/19/18 16:45 98.3 61 18 145/63 (90) 95 Room Air 02/19/18 12:00 98.4 67 18 148/66 (93) 96 Room Air I & O 02/20/18 06:59 Intake Total 3500 ml Output Total 1800 ml Balance 1700 ml Capillary Refill : Less Than 3 Seconds General Appearance: No Apparent Distress HEENT: Other (Tenderness persists on the right parietal area but no hematoma apparent) Respiratory: Lungs Clear Cardiovascular: Regular Rate, Rhythm Gastrointestinal: soft Results Lab Laboratory Tests 02/20/18 05:28: Sodium Level 141, Potassium Level 3.5L, Chloride Level 112H, Carbon Dioxide Level 20L, Anion Gap 9, Blood Urea Nitrogen 6L, Creatinine 0.63, Estimat Glomerular Filtration Rate > 60, BUN/Creatinine Ratio 10, Glucose Level 86, Calcium Level 9.3, Phosphorus Level 1.3L, Ammonia 26, Total Creatine Kinase 174H Assessment/Plan Assessment/Plan Assess & Plan/Chief Complaint 1. Rhabdomyolysis most likely secondary to fall -Patient has IV fluids initiated in the ED. -She will have CK value rechecked in the morning. 02/18 -The CK is noted to decrease to 953 this morning -Recheck CK in the morning of February 19 -IV fluids were decreased to 80 mL since her hydration status is normalized and do not want to compromise pulmonary status 02/19 -CK this morning is 350 -Recheck in the morning. 02/20 -CK nearly normalized as of this morning. -We will discontinue IV fluids. 2. Hypokalemia -Oral replacement with potassium 10 mEq twice daily -Recheck BMP in the morning 02/20 -Potassium nearly in the normal range 3. Fall with resultant injury to the back. No apparent head trauma -Continue to monitor her symptoms -Surgical consultation was obtained in the ED. 02/18 -The bruising appears to be stable along the right flank area. She is only slightly tender with palpation. 02/19 -shipping services sales representative consult Clinical Quality Measures Admission Status Admission Dx 1. Rhabdomyolysis most likely secondary to fall 2. Fall with resultant injury to the back. No apparent head trauma DVT/VTE Risk/Contraindication: Risk Factor Score Per Nursin RFS Level Per Nursing on Admit: 4+=Very High AWA NIXON MD Feb 20, 2018 08:17
[2018-02-20] MEDS: KCL 10 MEQ TAB (MICRO K) PO SCH ×2 (08:21→20:30)
[2018-02-20] MEDS: LACTOBACILLUS Acidoph/Bulgar (LACTINEX/FLORANEX) TAB PO SCH ×2 (08:21→20:30)
[2018-02-20] MEDS: metroNIDAZOLE 250 MG (FLAGYL) TAB PO SCH ×2 (08:22→20:30)
[2018-02-20] MEDS: ACETAMINOPHEN 325 MG TABLET/CAPLET (TYLENOL) PO PRN (08:22)
[2018-02-20 12:00] VITALS: BP 165/74
--- NOTE | 2018-02-20 14:38 | Physical Therapy Daily Note ---
PT Daily Note-Current Subjective Patient is alert and awake finishing lunch. Family present. Pain Numeric Pain Scale: 0-No Pain Location: No Pain Reported Mental Status Patient Orientation: Normal For Age Transfers Functional [place] Measure 0=Not Assessed/NA 4=Minimal Assistance 1=Total Assistance 5=Supervision or Setup 2=Maximal Assistance 6=Modified [place] 3=Moderate Assistance 7=Complete IndependenceIRFPAI Quality Coding Scale 6 Independent with activity with or without an assistive device 5 Patient requires set up or clean up by helper. Patient completes activity by themselves 4 Supervision or touching assist (CGA). [place] provide cues , steadying assist 3 The helper provides less than half the effort to complete the activity 2 The helper provides more than half the effort to complete the activity 1 Dependent. The helper does all the effort to complete an activity 7 Patient refused to complete or attempt activity 9 The patient did not perform the activity before the current illness or injury 88 Not attempted due to Medical conditions or safety concerns Transfers (B, C, W/C) (FIM): 5 Scootin Rollin Supine to/from Sit: 5 Sit to/from Stand: 5 Weight Bearing Right Lower Extremity: Right Weight Bearing/Tolerated Left Lower Extremity: Left Weight Bearing/Tolerated Gait Training Gait (FIM): 5 Distance (FIM): 3=150 ft Distance: 450' Gait Level of Assist: 5 Gait Assistive Device: FWW safe and functional Assessment Patient returned to bed due to fatigue. All rails up and family remains in room. PT Shelter Goals Shelter Goals PT Shelter Goals Time Frame: Feb 23, 2018 Transfers (B,C,W/C) (FIM): 6 Gait (FIM): 6 Gait distance (FIM): 3=150 ft Gait Level of Assist: 6 Gait Assistive Device: None, FWW PT Plan Treatment/Plan Treatment Plan: Continue Plan of Care Treatment Plan: Bed Mobility, Education, Functional Activity Merry, Functional Strength, Gait, Safety, Therapeutic Exercise, Transfers Treatment Duration: Feb 23, 2018 Frequency: 5 times per week Estimated Hrs Per Day: .25 hour per day Patient and/or Family Agrees t: Yes Time/GCodes Time In: 1345 Time Out: 1400 Total Billed Treatment Time: 15 Total Billed Treatment 1 visit GT 15 min JANN POWELL PT Feb 20, 2018 14:38
[2018-02-20 16:05] VITALS: BP 141/65
--- NOTE | 2018-02-20 18:03 | Progress Note ---
Subjective Date Seen by Provider: Feb 20, 2018 Time Seen by Provider: 17:58 Subjective/Events-last exam patient states she's doing well, family states she had a rough night being awake and some hallucination. today she's been better just fatigued, she states everyone keeps waking her up. She has no new complaints denies n/v fever sweats chills shortness of breath or chest pain. Some right sided headache still but better. Ct head no acute injury. Objective Exam Vital Signs Date Time Temp Pulse Resp B/P (MAP) Pulse Ox O2 Delivery O2 Flow Rate FiO2 02/20/18 16:05 97.1 52 18 141/65 (90) 97 Room Air 02/20/18 12:00 97.9 56 20 165/74 (104) 96 Room Air 02/20/18 08:00 98.8 76 20 149/83 (105) 96 Room Air 02/20/18 05:48 99.1 61 19 162/70 (100) 97 Room Air 02/20/18 00:00 97.5 65 19 158/62 (94) 96 Room Air 02/19/18 19:50 98.6 60 18 161/52 (88) 96 Room Air I & O 02/20/18 07:00 Intake Total 3500 ml Output Total 1800 ml Balance 1700 ml Capillary Refill : Less Than 3 Seconds General Appearance: No Apparent Distress HEENT: PERRL/EOMI, Other (Tenderness on the right parietal area and echymosis) Neck: Supple Respiratory: Chest Non Tender, No Accessory Muscle Use, No Respiratory Distress Cardiovascular: Regular Rate, Rhythm Gastrointestinal: non tender, soft, no organomegaly, no pulsatile mass Extremity: Normal Inspection Neurologic/Psychiatric: Alert, Oriented x3 (oriented x 3 but seems to have some hesitation or confusion still at times), Normal 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/Affect, 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 Norm as Tested Skin: Normal Color, Other (Bruising still noted along the right flank region) Lymphatic: No Adenopathy Results Lab Laboratory Tests 02/20/18 05:28: Sodium Level 141, Potassium Level 3.5L, Chloride Level 112H, Carbon Dioxide Level 20L, Anion Gap 9, Blood Urea Nitrogen 6L, Creatinine 0.63, Estimat Glomerular Filtration Rate > 60, BUN/Creatinine Ratio 10, Glucose Level 86, Calcium Level 9.3, Phosphorus Level 1.3L, Ammonia 26, Total Creatine Kinase 174H Assessment/Plan Assessment/Plan Assessment/Plan Fall, Loss of consciousness, Rhabdomylolysis, Hypokalemia, confusion and hallucinations patient continues to improve, ct head no acute issue. medical mangement will sign off call if needed. Clinical Quality Measures DVT/VTE Risk/Contraindication: Risk Factor Score Per Nursin RFS Level Per Nursing on Admit: 4+=Very High SILVIA BE DO Feb 20, 2018 18:02
[2018-02-20 19:50] VITALS: BP 165/73
[2018-02-20] MEDS: FENOFIBRATE 134 MG (LOFIBRA) CAPSULE PO SCH (20:30)
[2018-02-21 00:52] VITALS: BP 161/73
[2018-02-21 04:00] VITALS: BP 164/72
[2018-02-21 08:00] VITALS: BP 174/79
--- NOTE | 2018-02-21 08:13 | Discharge Summary ---
Diagnosis/Chief Complaint Date of Admission Feb 17, 2018 at 16:20 Date of Discharge February 21, 2018 Discharge Date: Feb 21, 2018 Discharge Time: 10:00 Admission Diagnosis Admission Diagnosis 1. Rhabdomyolysis 2. Hypokalemia 3. Fall with injury to the right back as well as right parietal region of scalp Discharge Diagnosis 1. Rhabdomyolysis most likely secondary to fall 2. Hypokalemia 3. Fall with resultant injury to the back and right parietal region of scalp Reason Hospital Visit 82-year-old female admitted through emergency department after EMS brought patient in for evaluation. She had taken a fall in the morning on day of admission. Her daughters felt like she was trying to get ready and most likely she tripped on dresser drawers. The patient is better she can remember think she may have fell out of bed. She is somewhat confused. Patient was noted to have a fairly large bruise on her lower back on the right side. There was no reports of headache or any neck pain. Patient does have a tumor mass and at patient's request this has not been evaluated by biopsy. Discharge Summary Hospital Course Hospital Course 1. Rhabdomyolysis most likely secondary to fall -Patient has IV fluids initiated in the ED. -She will have CK value rechecked in the morning. 02/18 -The CK is noted to decrease to 953 this morning -Recheck CK in the morning of February 19 -IV fluids were decreased to 80 mL since her hydration status is normalized and do not want to compromise pulmonary status / -CK this morning is 350 -Recheck in the morning. 02/20 -CK nearly normalized as of this morning. -We will discontinue IV fluids. 2. Hypokalemia -Oral replacement with potassium 10 mEq twice daily -Recheck BMP in the morning 02/20 -Potassium nearly in the normal range 3. Fall with resultant injury to the back. No apparent head trauma -Continue to monitor her symptoms -Surgical consultation was obtained in the ED. 02/18 -The bruising appears to be stable along the right flank area. She is only slightly tender with palpation. 02/19 -support services rep consult Labs Laboratory Tests 02/19/18 05:50: Potassium Level 3.2L, Chloride Level 110H, Anion Gap 4L, Total Creatine Kinase 350H 02/20/18 05:28: Potassium Level 3.5L, Chloride Level 112H, Total Creatine Kinase 174H, Carbon Dioxide Level 20L, Blood Urea Nitrogen 6L, Phosphorus Level 1.3L Procedures None. Discharge Physical Examination Allergies: Coded Allergies: No Known Drug Allergies (Unverified , 10/04/13) Vitals & I&Os Vital Signs Date Time Temp Pulse Resp B/P (MAP) Pulse Ox O2 Delivery O2 Flow Rate FiO2 02/21/18 04:00 97.6 62 18 164/72 (102) 98 Room Air General Appearance: No Acute Distress Respiratory: Clear to Auscultation Cardiovascular: Regular Rate Abdominal: Soft Discharge Home Medications Reviewed and agree with Discharge Medication list on patient's Discharge Instruction sheet Instructions to Patient/Family Please see electronic discharge instructions given to patient. Clinical Quality Measures DVT/VTE Risk/Contraindication: Risk Factor Score Per Nursin RFS Level Per Nursing on Admit: 4+=Very High AWA NIXON MD Feb 21, 2018 08:13
--- NOTE | 2018-02-21 08:17 | Discharge Inst-Simple/Standard ---
Discharge Inst-Standard Discharge Medications New, Converted or Re-Newed RX: Other Patient Instructions/Follow Up Plan of Care/Instructions/FU: After she is released from [facility] facility she will follow up with Dr. Nixon the week following. Activity as Tolerated: Yes (Based upon physical therapy at [facility] ) Discharge Diet: Low Sodium Diet, Regular Diet Return to The Hospital For: Worsening confusion AWA NIXON MD Feb 21, 2018 08:17
[2018-02-21] MEDS: metroNIDAZOLE 250 MG (FLAGYL) TAB PO SCH (09:17)
[2018-02-21] MEDS: LACTOBACILLUS Acidoph/Bulgar (LACTINEX/FLORANEX) TAB PO SCH (09:17)
[2018-02-21] MEDS: KCL 10 MEQ TAB (MICRO K) PO SCH (09:17)
[2018-02-21] MEDS: ACETAMINOPHEN 325 MG TABLET/CAPLET (TYLENOL) PO PRN ×2 (09:18→14:59)
--- NOTE | 2018-02-21 10:04 | Discharge Inst-Skilled Nursing ---
Discharge Inst-Skilled NF Patient Instructions Patient Problems: Confusion, Weakness Goal: Regain independent walking and self care Consult/Follow Up/Orders Follow Up Appt.: 2 weeks after discharge from [facility] Skilled NF Admit to: [facility] Certification (SNF) I certify that SNF services are required to be given on an inpatient basis because of the above named patient's need for [facility] care on a continuing basis for the conditions(s) for which he/she was receiving inpatient hospital services prior to his/her transfer to the SNF. [facility]way Facility Order: Nursing Services, News Assignment Editor-Evaluate & Treat, Physical Therapy-Evaluate & Treat Discharge Diet: Low Sodium Diet, Regular Diet Daily Activity as Tolerated: Yes (low sodium) New & Resume Previous Orders Awa Nixon Feb 21, 2018 10:03 AWA NIXON MD Feb 21, 2018 10:04
[2018-02-21 12:00] VITALS: BP 174/79
[2018-02-21 15:38] VITALS: BP 174/79
== END 2018-02-21 15:10 | DRG 565 ==
LOC: ER 12:08 → EDUNIT# 12:08 → 4TH 16:20
PROVIDERS: ADMIT Family Medicine; ATTEND Family Medicine
DX: T79.6XXA Traumatic ischemia of muscle, initial encounter (principal); S00.83XA Contusion of other part of head, initial encounter; S00.03XA Contusion of scalp, initial encounter; S30.0XXA Contusion of lower back and pelvis, initial encounter; R44.3 Hallucinations, unspecified; C22.9 Malignant neoplasm of liver, not specified as primary or secondary; M25.521 Pain in right elbow; R41.0 Disorientation, unspecified; Z66 Do not resuscitate; E87.6 Hypokalemia; R60.0 Localized edema; M19.91 Primary osteoarthritis, unspecified site; F41.9 Anxiety disorder, unspecified; F32.9 Major depressive disorder, single episode, unspecified; W18.30XA Fall on same level, unspecified, initial encounter; Y92.003 Bedroom of unspecified non-institutional (private) residence as the place of occurrence of the external cause; Z96.653 Presence of artificial knee joint, bilateral
CPT/HCPCS: 36415; 70450; 71045; 71260; 72125; 72170; 73080; 74177; 80048; 80053; 81000; 82140; 82550; 84100; 85007; 85025; 85027; 96360

== ENCOUNTER 2018-07-22 22:19 | Emergency (ER) | payer MEDICARE ==
[~2018-07-22] VITALS: Ht 157.5 cm; Wt 83.9 kg
[~2018-07-22 22:19] MED LIST changes: +METR250T PO; +METR250T32 PO
[2018-07-22 22:47] LABS: BASOPHILS % (AUTO) 1 % (0-10); EOSINOPHILS # (AUTO) 0.1 10^3/uL (0.0-0.3); EOSINOPHILS % (AUTO) 2 % (0-10); HEMATOCRIT 36 % (35-52); HEMOGLOBIN 12.4 G/DL (11.5-16.0); LYMPHOCYTES # (AUTO) 1.1 X 10^3 (1.0-4.0); LYMPHOCYTES % (AUTO) 24 % (12-44); MEAN CORPUSCULAR HEMOGLOBIN 33 PG (25-34); MEAN CORPUSCULAR HGB CONC 34 G/DL (32-36); MEAN CORPUSCULAR VOLUME 96 FL (80-99); MEAN PLATELET VOLUME 10.6 FL (7.4-10.4); MONOCYTES # (AUTO) 0.5 X 10^3 (0.0-1.0); MONOCYTES % (AUTO) 11 % (0-12); NEUTROPHILS # (AUTO) 2.9 X 10^3 (1.8-7.8); NEUTROPHILS % (AUTO) 63 % (42-75); PLATELET COUNT 155 10^3/uL (130-400); RED CELL DISTRIBUTION WIDTH 15.3 % (10.0-14.5); WHITE BLOOD COUNT 4.7 10^3/uL (4.3-11.0)
[2018-07-22 23:01] LABS: INR 1.1 (0.8-1.4); PROTHROMBIN TIME PATIENT 13.9 SEC (12.2-14.7)
[2018-07-22 23:06] LABS: ALANINE AMINOTRANSFERASE 19 U/L (0-55); ALBUMIN 3.8 GM/DL (3.2-4.5); ALKALINE PHOSPHATASE 69 U/L (40-136); BILIRUBIN,TOTAL 0.3 MG/DL (0.1-1.0); BUN/CREATININE RATIO 23; CALCIUM 11.7 MG/DL (8.5-10.1); CARBON DIOXIDE 22 MMOL/L (21-32); CHLORIDE 105 MMOL/L (98-107); CREATININE SERUM 0.91 MG/DL (0.60-1.30); GFR ESTIMATED 59; GLUCOSE 130 MG/DL (70-105); MAGNESIUM 2.1 MG/DL (1.8-2.4); POTASSIUM 3.7 MMOL/L (3.6-5.0); SODIUM 140 MMOL/L (135-145); TOTAL PROTEIN 6.6 GM/DL (6.4-8.2)
[2018-07-23 00:22] LABS: BILIRUBIN,URINE NEGATIVE (NEGATIVE); CLARITY,URINE SLIGHTLY CLOUDY; COLOR,URINE YELLOW; GLUCOSE, URINE (UA) NEGATIVE (NEGATIVE); KETONES,URINE NEGATIVE (NEGATIVE); LEUKOCYTE ESTERASE ,URINE 3+ (NEGATIVE); NITRITE,URINE NEGATIVE (NEGATIVE); PH,URINE 7 (5-9); PROTEIN,URINE NEGATIVE (NEGATIVE); UROBILINOGEN,URINE NORMAL (NORMAL)
[2018-07-23 00:24] LABS: BACTERIA,URINE FEW /HPF
[2018-07-23 00:25] LABS: AMORPHOUS SEDIMENT,UR FEW AMOR PHOSPHATE /LPF
[2018-07-23] MEDS ORDERED: ACETYLCYSTEINE INJECTION 0 MG in D5W IV SOLUTION (EXCEL) 250 ML IV ONE (00:30)
[2018-07-23] MEDS ORDERED: cefTRIAXone FOR IV USE 1,000 MG in NS (IVPB) 50 ML IV ONE (00:30)
[2018-07-23] MEDS ORDERED: CEFD300C3 PO (00:47)
--- NOTE | 2018-07-23 00:48 | ED General ---
General Chief Complaint: Dizziness/Syncope Stated Complaint: SYNCOPAL EPISODE Nursing Triage Note: PER EMS FOR FEELING WOOZY AND DIZZY WHILE SITTING AND SHOWING PICTURES TO GRANDDAUGHTER. PT STATES SHE LAID BACK IN CHAIR AND SAID "I'M LEAVING YOU, I'M LEAVING YOU" AND FELT LIKE SHE WAS GOING TO [facility]. NO LOC, DID NOT FALL. Nursing Sepsis Screen: No Definite Risk Source of Information: Patient History of Present Illness Date Seen by Provider: Jul 22, 2018 Time Seen by Provider: 22:20 Initial Comments PT ARRIVES VIA EMS C/O FEELING WEAK AND DIZZY AND ALMOST PASSED OUT WAS SITTING AT THE TIME DID NOT FALL OR HIT HEAD NO ACTUAL SYNCOPE NO CP NO SOB NO PALPITATIONS NO NAUSEA/VOMITING NO SWEATS NO HEADACHE NO VISION CHANGES FELT FINE EARLIER NORMAL ACTIVITIES TODAY Allergies and Home Medications Allergies Coded Allergies: No Known Drug Allergies (Unverified , 10/04/13) Home Medications Acetaminophen 325 Mg Tablet, 325 MG PO Q6H PRN for PAIN-MILD TO MODERATE, ( Reported) Allopurinol 100 Mg Tablet, 100 MG PO DAILY, (Reported) Cefdinir 300 Mg Capsule, 300 MG PO BID FOR INFECTION Prescribed by: LIAM PORRAS on 07/23/18 0047 Citalopram Hydrobromide 10 Mg Tablet, 10 MG PO DAILY, (Reported) Fenofibrate,Micronized 134 Mg Capsule, 134 MG PO DAILY, (Reported) Hydrochlorothiazide 25 Mg Tablet, 25 MG PO DAILY, (Reported) Metronidazole 250 Mg Tablet, 250 MG PO BID, (Reported) Saccharomyces Boulardii 250 Mg Capsule, 250 MG PO BID, (Reported) Patient Home Medication List Home Medication List Reviewed: Yes Review of Systems Review of Systems Constitutional: see HPI, malaise, weakness EENTM: no symptoms reported Respiratory: no symptoms reported; No short of breath Cardiovascular: no symptoms reported; No chest pain, No palpitations Gastrointestinal: no symptoms reported; No abdominal pain, No nausea, No vomiting Genitourinary: no symptoms reported Musculoskeletal: no symptoms reported Psychiatric/Neurological: See HPI (DIZZY, WEAK); Denies Headache, Denies Numbness, Denies Paresthesia, Denies Seizure, Denies Tingling, Denies Tremors, Denies Weakness Hematologic/Lymphatic: No Symptoms Reported Immunological/Allergic: no symptoms reported Past Dudwxcv-Jdvnoi-Mixsxe Hx Patient Social History Alcohol Use: Denies Use Recreational Drug Use: No 2nd Hand Smoke Exposure: No Recent Foreign Travel: No Contact w/Someone Who Travel: No Recent Infectious Disease Expo: No Recent Hopitalizations: No Immunizations Up To Date Tetanus Booster (TDap): Less than 5yrs Date of Pneumonia Vaccine: Aug 20, 2013 Date of Influenza Vaccine: Sep 01, 2017 Seasonal Allergies Seasonal Allergies: No Past Medical History Surgeries: Yes (henry total knee replacement; rectal fistula) Gallbladder, Hysterectomy, Orthopedic Respiratory: No Currently Using CPAP: No Currently Using BIPAP: No Cardiac: Yes (edema to lower ext) Neurological: 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 Genitourinary: No Gastrointestinal: Yes C-Diff Musculoskeletal: Yes (ARTHRITIS) Arthritis, Gout Endocrine: No HEENT: Yes Cataract Cancer: Yes (recent diagnosis; 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 0oz. 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 Norm as Tested; No Abnormal Cerebellar Tests Skin: Normal Color, Warm/Dry Progress/Results/Core Measures Suspected Sepsis Recent Fever Within 48 Hours: No Infection Criteria Present: Suspected New Infection New/Unexplained Altered Menta: No Sepsis Screen: No Definite Risk SIRS Temperature:98.1 Pulse: 63 Respiratory Rate: 21 Blood Pressure 171 /73 Mean: 105 Results/Orders Lab Results My Orders Medications Given in ED Vital Signs/I&O Capillary Refill : Less Than 3 Seconds Blood Pressure Mean: 105 Progress Note : Progress Note UNEVENTFUL ER STAY ECG Initial ECG Impression Date: Jul 22, 2018 Initial ECG Impression Time: 22:48 Initial ECG Rate: 56 Initial ECG Rhythm: Normal Sinus Diagnostic Imaging Comments CXR--NO ACUTE PROCESS, PENDING RADIOLOGIST REVIEW CT HEAD--NO ACUTE PROCESS, CHRONIC CHANGES--PER [facility] VIA FAX @ [phone] Reviewed: Reviewed by Me Departure Impression Primary Impression: GENERALIZED WEAKNESS WITH NEAR SYNCOPE Additional Impression: UTI (urinary tract infection) Disposition: HOME, SELF-CARE Condition: Stable Departure-Patient Inst. Referrals: AWA NIXON MD (PCP/Family) Primary Care Physician Patient Instructions: Syncope (Fainting) (DC), Urinary Tract Infection, Adult ( DC) Add. Discharge Instructions: HOME, REST USE WALKER AT ALL TIMES LOTS OF CLEAR LIQUIDS--WATER, BROTH, JELLO, GATORAD CONTINUE YOUR REGULAR MEDICATIONS PRESCRIBED FOLLOW UP WITH YOUR DR IN 2-3 DAYS FOR FURTHER CARE RETURN TO ER IF WORSE All discharge instructions reviewed with patient and/or family. Voiced understanding. Scripts Cefdinir (Cefdinir) 300 Mg Capsule 300 MG PO BID, #20 CAP FOR INFECTION Prov: LIAM PORRAS DO 07/23/18 LIAM PORRAS DO Jul 23, 2018 00:48
[2018-07-23 01:00] VITALS: BP 150/87
--- NOTE | 2018-07-23 08:11 | Diagnostic Imaging Report ---
INDICATION: Dizzy. Syncope. Comparison with 02/19/2018. Findings: There is diffuse cortical atrophy. Diffuse periventricular white matter changes. The ventricles are slightly prominent consistent with atrophic state. No evidence of intracranial hemorrhage. The mastoid air cells and paranasal sinuses are clear. There is soft tissue swelling over the left cheek. IMPRESSION: 1. Cortical atrophy with white matter changes consistent with chronic small vessel disease. No acute intracranial abnormality. Dictated by: Dictated on workstation # [id number]
--- NOTE | 2018-07-23 08:32 | Diagnostic Imaging Report ---
INDICATION: Syncope. COMPARISON: 02/17/2018. FINDINGS: The lungs are well-aerated and clear on today's exam. Heart is not enlarged. There is no pulmonary edema. No pneumothorax or pleural effusions. No bony abnormalities. IMPRESSION: Normal portable chest. No evidence of congestive failure on today's exam. Dictated by: Dictated on workstation # [id number]
== END 2018-07-23 01:06 | disposition home or self-care (01) ==
LOC: EDUNIT# 22:19 → ER 22:20
DX: R53.1 Weakness (principal); R55 Syncope and collapse; N39.0 Urinary tract infection, site not specified; M10.9 Gout, unspecified; F41.9 Anxiety disorder, unspecified; F32.9 Major depressive disorder, single episode, unspecified; Z82.49 Family history of ischemic heart disease and other diseases of the circulatory system; Z80.0 Family history of malignant neoplasm of digestive organs; Z80.42 Family history of malignant neoplasm of prostate; Z85.05 Personal history of malignant neoplasm of liver; Z96.653 Presence of artificial knee joint, bilateral; Z90.710 Acquired absence of both cervix and uterus
CPT/HCPCS: 36415; 70450; 71045; 80053; 81000; 83735; 84484; 85025; 85610; 85730; 87088; 93005; 93041; 96365

== ENCOUNTER 2018-09-15 14:43 | Inpatient (IN) | payer MEDICARE ==
[~2018-09-15] VITALS: Ht 162.6 cm; Wt 86.2 kg
[~2018-09-15 14:43] MED LIST changes: +CEFD300C3 PO; +METR-143 PO; +METR-197 PO; -METR250T32 PO; -METR500T21 PO
--- OUTSIDE RECORDS SUMMARY | 2018-09-15 14:49 | XMS REPORT | Continuity of Care Document ---
Author Author Formerly [facility] Address Unknown Phone Unavailable Allergies Active Description Code Type Severity Reaction Onset Reported/Identified Relationship to Patient Clinical Status Yes No Known Drug Allergies [id number] Drug Allergy Unknown N/A 10/04/2013 Medications There is no data. Problems Date Dx Coded Attending Type Code Diagnosis Diagnosed By 06/25/2010 Ot 211.3 06/25/2010 Ot V16.0 06/25/2010 Ot V67.09 04/18/2012 692.9 DERMATITIS CONTACT UNSPECIFIED 04/18/2012 AVA BRYAN DDS 692.9 DERMATITIS CONTACT UNSPECIFIED 04/18/2012 MEZA DO, TAMMY K 692.9 DERMATITIS CONTACT UNSPECIFIED 04/18/2012 MEZA DO, TAMMY K 692.9 DERMATITIS CONTACT UNSPECIFIED 04/18/2012 MADL DEVELOPMENT ANALYST, ARTURO L 692.9 DERMATITIS CONTACT UNSPECIFIED 09/04/2013 MEZA DO, TAMMY K V04.81 FLU SHOT 09/04/2013 MEZA DO, TAMMY K V04.81 FLU SHOT 09/04/2013 MADL DEVELOPMENT ANALYST, ARTURO L V04.81 FLU SHOT 10/04/2013 JULIENNE MILLIGAN MD Ot 211.3 BENIGN NEOPLASM LG BOWEL 10/04/2013 JULIENNE MILLIGAN MD Ot V16.0 FAMILY HX-GI MALIGNANCY 10/04/2013 JULIENNE MILLIGAN MD Ot V76.51 SCREEN MAL NEOP-COLON 12/08/2014 MADL DEVELOPMENT ANALYST, ARTURO L 686.8 OTHER SPECIFIED LOCAL INFECTIONS OF SKIN AND SUBCUTANEOUS TISSUE 12/08/2014 LUCIANA DEVELOPMENT ANALYST, ARTURO L 719.47 PAIN IN JOINT INVOLVING ANKLE AND FOOT 11/02/2015 Ot V76.12 11/02/2015 Ot V76.12 11/02/2015 JULIENNE MILLIGAN MD Ot V72.84 11/02/2015 JULIENNE MILLIGAN MD Ot V72.84 11/25/2015 TOM NIXON MD, Ot Z12.31 04/24/2017 Tom Nixon 008.45 INTESTINAL INFECTION DUE TO CLOSTRIDIUM DIFFICILE 04/24/2017 Tom Nixon 719.06 EFFUSION OF LOWER LEG JOINT 04/24/2017 Tom Nixon 780.79 OTHER MALAISE AND FATIGUE 04/24/2017 Tom Nixon A04.7 ENTEROCOLITIS DUE TO CLOSTRIDIUM DIFFICILE 04/24/2017 Tom Nixon M25.461 EFFUSION, RIGHT KNEE 04/24/2017 Tom Nixon R53.81 OTHER MALAISE 05/08/2017 TOM NIXON MD, Ot A04.7 ENTEROCOLITIS DUE TO CLOSTRIDIUM DIFFICI 05/09/2017 TOM NIXON MD, Ot A04.7 ENTEROCOLITIS DUE TO CLOSTRIDIUM DIFFICI 05/09/2017 TOM NIXON MD, Ot C22.9 MALIG NEOPLASM OF LIVER, NOT SPECIFIED A 05/09/2017 TOM NIXON MD, Ot 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 05/09/2017 TOM NIXON MD, Ot E66.9 OBESITY, UNSPECIFIED 05/09/2017 TOM NIXON MD, Ot E86.0 DEHYDRATION 05/09/2017 TOM NIXON MD, Ot M19.91 PRIMARY OSTEOARTHRITIS, UNSPECIFIED SITE 05/09/2017 TOM NIXON MD, Ot R63.0 ANOREXIA 05/09/2017 TOM NIXON MD, Ot Z66 DO NOT RESUSCITATE 05/09/2017 TOM NIXON MD, Ot Z68.35 BODY MASS INDEX (BMI) 35.0-35.9, ADULT 07/07/2017 Tom Nixon 008.45 07/07/2017 Tom Nixon 155.2 MALIGNANT NEOPLASM OF LIVER, NOT SPECIFIED PRIMARY OR SECONDARY 07/07/2017 Tom Nixon 401.0 MALIGNANT ESSENTIAL HYPERTENSION 07/07/2017 Tom Nixon 715.10 OSTEOARTHROSIS, LOCALIZED, PRIMARY, INVOLVING UNSPECIFIED SITE 07/07/2017 Tom Nixon 728.87 07/07/2017 Tom Nixon 783.21 LOSS OF WEIGHT 07/07/2017 Tom Nixon A04.72 ENTEROCOLITIS D/T CLOSTRIDIUM DIFFICILE, NOT SPCF RECUR 07/07/2017 Tom Nixon C22.9 MALIG NEOPLASM OF LIVER, NOT SPECIFIED PRIMARY OR SEC 07/07/2017 Tom Nixon I10 ESSENTIAL (PRIMARY) HYPERTENSION 07/07/2017 Tom Nixon M19.91 PRIMARY OSTEOARTHRITIS, UNSPECIFIED SITE 07/07/2017 Tom Nixon M62.81 MUSCLE WEAKNESS (GENERALIZED) 07/07/2017 Tom Nixon R63.4 ABNORMAL WEIGHT LOSS 02/21/2018 TOM NIXON MD, Ot C22.9 MALIG NEOPLASM OF LIVER, NOT SPECIFIED A 02/21/2018 TOM NIXON MD, Ot E87.6 HYPOKALEMIA 02/21/2018 TOM NIXON MD, Ot F32.9 MAJOR DEPRESSIVE DISORDER, SINGLE EPISOD 02/21/2018 TOM NIXON MD, Ot F41.9 ANXIETY DISORDER, UNSPECIFIED 02/21/2018 TOM NIXON MD, Ot M19.91 PRIMARY OSTEOARTHRITIS, UNSPECIFIED SITE 02/21/2018 TOM NIXON MD, Ot M25.521 PAIN IN RIGHT ELBOW 02/21/2018 TOM NIXON MD, Ot R41.0 DISORIENTATION, UNSPECIFIED 02/21/2018 TOM NIXON MD, Ot R44.3 HALLUCINATIONS, UNSPECIFIED 02/21/2018 TOM NIXON MD, Ot R60.0 LOCALIZED EDEMA 02/21/2018 TOM NIXON MD Ot S00.03XA CONTUSION OF SCALP, INITIAL ENCOUNTER 02/21/2018 TOM NIXON MD, Ot S00.83XA CONTUSION OF OTHER PART OF HEAD, INITIAL 02/21/2018 TOM NIXON MD, Ot S09.93XA UNSPECIFIED INJURY OF FACE, INITIAL ENCO 02/21/2018 TOM NIXON MD, Ot S30.0XXA CONTUSION OF LOWER BACK AND PELVIS, INIT 02/21/2018 TOM NIXON MD, Ot T79.6XXA TRAUMATIC ISCHEMIA OF MUSCLE, INITIAL EN 02/21/2018 TOM NIXON MD, Ot W18.30XA FALL ON SAME LEVEL, UNSPECIFIED, INITIAL 02/21/2018 TOM NIXON MD, Ot Y92.003 [facility] OF [facility] NON-INSTITUT (PRIVATE) R 02/21/2018 TOM NIXON MD Ot Z66 DO NOT RESUSCITATE 02/21/2018 TOM NIXON MD, Ot Z96.653 PRESENCE OF ARTIFICIAL KNEE JOINT, BILAT 03/29/2018 Tom Nixon 155.2 MALIGNANT NEOPLASM OF LIVER, NOT SPECIFIED PRIMARY OR SECONDARY 03/29/2018 Tom Nixon 300.00 ANXIETY STATE, UNSPECIFIED 03/29/2018 Tom Nixon 715.10 OSTEOARTHROSIS, LOCALIZED, PRIMARY, INVOLVING UNSPECIFIED SITE 03/29/2018 Tom Nixon 719.7 03/29/2018 Tom Nixon 780.79 OTHER MALAISE AND FATIGUE 03/29/2018 Tom Nixon C22.9 MALIG NEOPLASM OF LIVER, NOT SPECIFIED PRIMARY OR SEC 03/29/2018 Tom Nixon F41.9 ANXIETY DISORDER, UNSPECIFIED 03/29/2018 Tom Nixon M19.91 PRIMARY OSTEOARTHRITIS, UNSPECIFIED SITE 03/29/2018 Tom Nixon R26.2 DIFFICULTY IN WALKING, NOT ELSEWHERE CLASSIFIED 03/29/2018 Tom Nixon R53.1 WEAKNESS 03/29/2018 Tom Nixon V15.88 PERSONAL HISTORY OF FALL 03/29/2018 Tom Nixon Z91.81 HISTORY OF FALLING 07/23/2018 LIAM PORRAS DO Ot F32.9 MAJOR DEPRESSIVE DISORDER, SINGLE EPISOD 07/23/2018 LIAM PORRAS DO Ot F41.9 ANXIETY DISORDER, UNSPECIFIED 07/23/2018 LIAM PORRAS DO Ot M10.9 GOUT, UNSPECIFIED 07/23/2018 LIAM PORRAS DO Ot N39.0 URINARY TRACT INFECTION, SITE NOT SPECIF 07/23/2018 LIAM PORRAS DO Ot R53.1 WEAKNESS 07/23/2018 LIAM PORRAS DO Ot R55 SYNCOPE AND COLLAPSE 07/23/2018 LIAM PORRAS DO Ot Z80.0 FAMILY HISTORY OF MALIGNANT NEOPLASM OF 07/23/2018 RALEIGH PORRAS DOA K Ot Z80.42 FAMILY HISTORY OF MALIGNANT NEOPLASM OF 07/23/2018 CHIQUITA RALEIGH CHANDRAA K Ot Z82.49 FAMILY HX OF ISCHEM HEART DIS AND OTH DI 07/23/2018 CHIQUITA CHANDRA LIAM K Ot Z85.05 PERSONAL HISTORY OF MALIGNANT NEOPLASM O 07/23/2018 RALEIGH PORRAS DOA K Ot Z90.710 ACQUIRED ABSENCE OF BOTH CERVIX AND UTER 07/23/2018 CHIQUITA CHANDRA LIAM K Ot Z96.653 PRESENCE OF ARTIFICIAL KNEE JOINT, BILAT 07/23/2018 CHEL PAEZ, JULIENNE Lara Ot V72.84 EXAM PRE-OPERATIVE NOS 07/23/2018 CHEL PAEZ, JULIENNE Lara Ot V72.84 EXAM PRE-OPERATIVE NOS 07/23/2018 HUSSAIN PAEZ, TOM [place] Ot Z12.31 ENCNTR SCREEN MAMMOGRAM FOR MALIGNANT NE 07/24/2018 CHIQUITA CHANDRA LIAM K Ot F32.9 MAJOR DEPRESSIVE DISORDER, SINGLE EPISOD 07/24/2018 CHIQUITA CHANDRA LIAM K Ot F41.9 ANXIETY DISORDER, UNSPECIFIED 07/24/2018 CHIQUITA LIAM K Ot M10.9 GOUT, UNSPECIFIED 07/24/2018 CHIQUITA CHANDRA LIAM K Ot N39.0 URINARY TRACT INFECTION, SITE NOT SPECIF 07/24/2018 CHIQUITA CHANDRA LIAM K Ot R53.1 WEAKNESS 07/24/2018 CHIQUITA CHANDRA LIAM K Ot R55 SYNCOPE AND COLLAPSE 07/24/2018 CHIQUITA CHANDRA LIAM K Ot Z80.0 FAMILY HISTORY OF MALIGNANT NEOPLASM OF 07/24/2018 CHIQUITA CHANDRA LIAM K Ot Z80.42 FAMILY HISTORY OF MALIGNANT NEOPLASM OF 07/24/2018 CHIQUITA CHANDRA LIAM K Ot Z82.49 FAMILY HX OF ISCHEM HEART DIS AND OTH DI 07/24/2018 CHIQUITA CHANDRA LIAM K Ot Z85.05 PERSONAL HISTORY OF MALIGNANT NEOPLASM O 07/24/2018 CHIQUITA LIAM K Ot Z90.710 ACQUIRED ABSENCE OF BOTH CERVIX AND UTER 07/24/2018 CHIQUITA LIAM K Ot Z96.653 PRESENCE OF ARTIFICIAL KNEE JOINT, BILAT Procedures Code Description Performed By Performed On G0008 FLU ADMINISTRATION ( MEDICARE ONLY) 09/04/2013 47697 ROUTINE VENIPUNCTURE 12/08/2014 68399 THERAPUTIC INJ SQ/IM 12/08/2014 J0696 ROCEPHIN INJ 1 g 12/08/2014 31654 XRAY FOOT RIGHT 2 VIEWS 12/08/2014 99284 CBC 12/08/2014 33513 CMP 12/08/2014 65772 URIC ACID 12/08/2014 4983329 GFR CALC (RESULT ONLY) 12/08/2014 Results Test [...] NRG Blood erythrocyte morphology finding identification NORMAL NR Comprehensive metabolic panel - 05/04/17 20:16 Serum [...] (F1 HELP) CALLED TO RERE/NURSE AT 0926, 6-/ KD NRG SPECIAL CONTACT SPECIAL CONTACT PRECAUTIONS [...] plasma calcium measurement (mass/volume) 9.3 mg/dL 8.5-10.1 Complete blood count (CBC) with automated white blood cell (WBC) differential - 02/17/18 12:15 Blood leukocytes automated count (number/volume) 10.0 10*3/uL 4.3-11.0 Blood erythrocytes automated count (number/volume) 4.22 10*6/uL 4.35-5.85 Venous blood hemoglobin measurement (mass/volume) 13.1 g/dL 11.5-16.0 Blood hematocrit (volume fraction) 39 % 35-52 Automated erythrocyte mean corpuscular volume 93 [foz_us] 80-99 Automated erythrocyte mean corpuscular hemoglobin (mass per erythrocyte) 31 pg 25-34 Automated erythrocyte mean corpuscular hemoglobin concentration measurement ( mass/volume) 34 g/dL 32-36 Automated erythrocyte distribution width ratio 16.7 % 10.0-14.5 Automated blood platelet count (count/volume) 152 10*3/uL 130-400 Automated blood platelet mean volume measurement 11.2 [foz_us] 7.4-10.4 Automated blood neutrophils/100 leukocytes 88 % 42-75 Automated blood lymphocytes/100 leukocytes 5 % 12-44 Blood monocytes/100 leukocytes 6 % 0-12 Automated blood eosinophils/100 leukocytes 0 % 0-10 Automated blood basophils/100 leukocytes 0 % 0-10 Blood neutrophils automated count (number/volume) 8.8 10*3 1.8-7.8 Blood lymphocytes automated count (number/volume) 0.5 10*3 1.0-4.0 Blood monocytes automated count (number/volume) 0.6 10*3 0.0-1.0 Automated eosinophil count 0.0 10*3/uL 0.0-0.3 Automated blood basophil count (count/volume) 0.0 10*3/uL 0.0-0.1 Comprehensive metabolic panel - 02/17/18 12:15 Serum or plasma sodium measurement (moles/volume) 137 mmol/L 135-145 Serum or plasma potassium measurement (moles/volume) 3.5 mmol/L 3.6-5.0 Serum or plasma chloride measurement (moles/volume) 102 mmol/L 98-107 Carbon dioxide 27 mmol/L 21-32 Serum or plasma anion gap determination (moles/volume) 8 mmol/L 5-14 Serum or plasma urea nitrogen measurement (mass/volume) 16 mg/dL 7-18 Serum or plasma creatinine measurement (mass/volume) 0.83 mg/dL 0.60-1.30 Serum or plasma urea nitrogen/creatinine mass ratio 19 NRG Serum or plasma creatinine measurement with calculation of estimated glomerular filtration rate > NRG Serum or plasma glucose measurement (mass/volume) 123 mg/dL 70-105 Serum or plasma calcium measurement (mass/volume) 11.1 mg/dL 8.5-10.1 Serum or plasma total bilirubin measurement (mass/volume) 1.2 mg/dL 0.1-1.0 Serum or plasma alkaline phosphatase measurement (enzymatic activity/volume) 93 U/L 40-136 Serum or plasma aspartate aminotransferase measurement (enzymatic activity/ volume) 128 U/L 5-34 Serum or plasma alanine aminotransferase measurement (enzymatic activity/volume ) 64 U/L 0-55 Serum or plasma protein measurement (mass/volume) 6.3 g/dL 6.4-8.2 Serum or plasma albumin measurement (mass/volume) 3.8 g/dL 3.2-4.5 Blood manual differential performed detection - 02/17/18 12:15 Blood monocytes/100 leukocytes 10 % NRG Manual blood segmented neutrophils/100 leukocytes 87 % NRG Manual blood lymphocytes/100 leukocytes 3 % NRG Blood erythrocyte morphology finding identification NORMAL NRG Serum or plasma creatine kinase measurement (enzymatic activity/volume) - 02/17 12:15 Serum or plasma creatine kinase measurement (enzymatic activity/volume) 1416 U/L 29-168 Complete urinalysis with reflex to culture - 02/17/18 17:33 Urine color determination YELLOW NRG Urine clarity determination CLEAR NRG Urine pH measurement by test strip 8 5-9 Specific gravity of urine by test strip 1.010 1.016- 1.022 Urine protein assay by test strip, semi-quantitative NEGATIVE NEGATIVE Urine glucose detection by automated test strip NEGATIVE NEGATIVE Erythrocytes detection in urine sediment by light microscopy 1+ NEGATIVE Urine ketones detection by automated test strip NEGATIVE NEGATIVE Urine nitrite detection by test strip NEGATIVE NEGATIVE Urine total bilirubin detection by test strip NEGATIVE NEGATIVE Urine urobilinogen measurement by automated test strip (mass/volume) NORMAL NORMAL Urine leukocyte esterase detection by dipstick 1+ NEGATIVE Automated urine sediment erythrocyte count by microscopy (number/high power field) NONE NRG Automated urine sediment leukocyte count by microscopy (number/high power field ) NONE NRG Bacteria detection in urine sediment by light microscopy TRACE NRG Squamous epithelial cells detection in urine sediment by light microscopy 10-25 NRG Crystals detection in urine sediment by light microscopy NONE NRG Casts detection in urine sediment by light microscopy NONE NRG Mucus detection in urine sediment by light microscopy NEGATIVE NRG Complete urinalysis with reflex to culture NO NRG Amorphous sediment detection in urine sediment by light microscopy MOD LATONYA PHOSPHATE NRG Complete blood count (CBC) with automated white blood cell (WBC) differential - 02/18/18 05:30 Blood leukocytes automated count (number/volume) 6.8 10*3/uL 4.3-11.0 Blood erythrocytes automated count (number/volume) 3.32 10*6/uL 4.35-5.85 Venous blood hemoglobin measurement (mass/volume) 10.2 g/dL 11.5-16.0 Blood hematocrit (volume fraction) 31 % 35-52 Automated erythrocyte mean corpuscular volume 93 [foz_us] 80-99 Automated erythrocyte mean corpuscular hemoglobin (mass per erythrocyte) 31 pg 25-34 Automated erythrocyte mean corpuscular hemoglobin concentration measurement ( mass/volume) 33 g/dL 32-36 Automated erythrocyte distribution width ratio 16.7 % 10.0-14.5 Automated blood platelet count (count/volume) 110 10*3/uL 130-400 Automated blood platelet mean volume measurement 11.4 [foz_us] 7.4-10.4 Automated blood neutrophils/100 leukocytes 75 % 42-75 Automated blood lymphocytes/100 leukocytes 14 % 12-44 Blood monocytes/100 leukocytes 10 % 0-12 Automated blood eosinophils/100 leukocytes 0 % 0-10 Automated blood basophils/100 leukocytes 0 % 0-10 Blood neutrophils automated count (number/volume) 5.1 10*3 1.8-7.8 Blood lymphocytes automated count (number/volume) 0.9 10*3 1.0-4.0 Blood monocytes automated count (number/volume) 0.7 10*3 0.0-1.0 Automated eosinophil count 0.0 10*3/uL 0.0-0.3 Automated blood basophil count (count/volume) 0.0 10*3/uL 0.0-0.1 Comprehensive metabolic panel - 02/18/18 05:30 Serum or plasma sodium measurement (moles/volume) 138 mmol/L 135-145 Serum or plasma potassium measurement (moles/volume) 2.9 mmol/L 3.6-5.0 Serum or plasma chloride measurement (moles/volume) 108 mmol/L 98-107 Carbon dioxide 22 mmol/L 21-32 Serum or plasma anion gap determination (moles/volume) 8 mmol/L 5-14 Serum or plasma urea nitrogen measurement (mass/volume) 11 mg/dL 7-18 Serum or plasma creatinine measurement (mass/volume) 0.71 mg/dL 0.60-1.30 Serum or plasma urea nitrogen/creatinine mass ratio 15 NRG Serum or plasma creatinine measurement with calculation of estimated glomerular filtration rate > NRG Serum or plasma glucose measurement (mass/volume) 94 mg/dL 70-105 Serum or plasma calcium measurement (mass/volume) 9.8 mg/dL 8.5-10.1 Serum or plasma total bilirubin measurement (mass/volume) 1.2 mg/dL 0.1-1.0 Serum or plasma alkaline phosphatase measurement (enzymatic activity/volume) 70 U/L 40-136 Serum or plasma aspartate aminotransferase measurement (enzymatic activity/ volume) 111 U/L 5-34 Serum or plasma alanine aminotransferase measurement (enzymatic activity/volume ) 49 U/L 0-55 Serum or plasma protein measurement (mass/volume) 5.1 g/dL 6.4-8.2 Serum or plasma albumin measurement (mass/volume) 2.9 g/dL 3.2-4.5 Serum or plasma creatine kinase measurement (enzymatic activity/volume) - 02/18 05:30 Serum or plasma creatine kinase measurement (enzymatic activity/volume) 953 U/L 29168 Whole blood basic metabolic panel - 02/19/18 05:50 Serum or plasma sodium measurement (moles/volume) 139 mmol/L 135-145 Serum or plasma potassium measurement (moles/volume) 3.2 mmol/L 3.6-5.0 Serum or plasma chloride measurement (moles/volume) 110 mmol/L 98-107 Carbon dioxide 25 mmol/L 21-32 Serum or plasma anion gap determination (moles/volume) 4 mmol/L 5-14 Serum or plasma urea nitrogen measurement (mass/volume) 7 mg/dL 7-18 Serum or plasma creatinine measurement (mass/volume) 0.65 mg/dL 0.60-1.30 Serum or plasma urea nitrogen/creatinine mass ratio 11 NRG Serum or plasma creatinine measurement with calculation of estimated glomerular filtration rate > NRG Serum or plasma glucose measurement (mass/volume) 104 mg/dL 70-105 Serum or plasma calcium measurement (mass/volume) 9.6 mg/dL 8.5-10.1 Serum or plasma creatine kinase measurement (enzymatic activity/volume) - 02/19 05:50 Serum or plasma creatine kinase measurement (enzymatic activity/volume) 350 U/L 29168 Whole blood basic metabolic panel - 02/20/18 05:28 Serum or plasma sodium measurement (moles/volume) 141 mmol/L 135-145 Serum or plasma potassium measurement (moles/volume) 3.5 mmol/L 3.6-5.0 Serum or plasma chloride measurement (moles/volume) 112 mmol/L 98-107 Carbon dioxide 20 mmol/L 21-32 Serum or plasma anion gap determination (moles/volume) 9 mmol/L 5-14 Serum or plasma urea nitrogen measurement (mass/volume) 6 mg/dL 7-18 Serum or plasma creatinine measurement (mass/volume) 0.63 mg/dL 0.60-1.30 Serum or plasma urea nitrogen/creatinine mass ratio 10 NRG Serum or plasma creatinine measurement with calculation of estimated glomerular filtration rate > NRG Serum or plasma glucose measurement (mass/volume) 86 mg/dL 70-105 Serum or plasma calcium measurement (mass/volume) 9.3 mg/dL 8.5-10.1 Serum or plasma phosphate measurement (mass/volume) - 02/20/18 05:28 Serum or plasma phosphate measurement (mass/volume) 1.3 mg/dL 2.3-4.7 Serum or plasma creatine kinase measurement (enzymatic activity/volume) - 02/20 05:28 Serum or plasma creatine kinase measurement (enzymatic activity/volume) 174 U/L 29-168 Ammonia - 02/20/18 05:28 Ammonia 26 umol/L 11-32 Complete blood count (CBC) with automated white blood cell (WBC) differential - 07/22/18 22:25 Blood leukocytes automated count (number/volume) 4.7 10*3/uL 4.3-11.0 Blood erythrocytes automated count (number/volume) 3.80 10*6/uL 4.35-5.85 Venous blood hemoglobin measurement (mass/volume) 12.4 g/dL 11.5-16.0 Blood hematocrit (volume fraction) 36 % 35-52 Automated erythrocyte mean corpuscular volume 96 [foz_us] 80-99 Automated erythrocyte mean corpuscular hemoglobin (mass per erythrocyte) 33 pg 25-34 Automated erythrocyte mean corpuscular hemoglobin concentration measurement ( mass/volume) 34 g/dL 32-36 Automated erythrocyte distribution width ratio 15.3 % 10.0-14.5 Automated blood platelet count (count/volume) 155 10*3/uL 130-400 Automated blood platelet mean volume measurement 10.6 [foz_us] 7.4-10.4 Automated blood neutrophils/100 leukocytes 63 % 42-75 Automated blood lymphocytes/100 leukocytes 24 % 12-44 Blood monocytes/100 leukocytes 11 % 0-12 Automated blood eosinophils/100 leukocytes 2 % 0-10 Automated blood basophils/100 leukocytes 1 % 0-10 Blood neutrophils automated count (number/volume) 2.9 10*3 1.8-7.8 Blood lymphocytes automated count (number/volume) 1.1 10*3 1.0-4.0 Blood monocytes automated count (number/volume) 0.5 10*3 0.0-1.0 Automated eosinophil count 0.1 10*3/uL 0.0-0.3 Automated blood basophil count (count/volume) 0.0 10*3/uL 0.0-0.1 PT panel in platelet poor plasma by coagulation assay - 07/22/18 22:25 Prothrombin time (PT) in platelet poor plasma by coagulation assay 13.9 s 12.2-14.7 INR in platelet poor plasma or blood by coagulation assay 1.1 0.8-1.4 Activated partial thromboplastin time (aPTT) in platelet poor plasma bycoagulation assay - 07/22/18 22:25 Activated partial thromboplastin time (aPTT) in platelet poor plasma bycoagulation assay 30 s 24-35 Comprehensive metabolic panel - 07/22/18 22:25 Serum or plasma sodium measurement (moles/volume) 140 mmol/L 135-145 Serum or plasma potassium measurement (moles/volume) 3.7 mmol/L 3.6-5.0 Serum or plasma chloride measurement (moles/volume) 105 mmol/L 98-107 Carbon dioxide 22 mmol/L 21-32 Serum or plasma anion gap determination (moles/volume) 13 mmol/L 5-14 Serum or plasma urea nitrogen measurement (mass/volume) 21 mg/dL 7-18 Serum or plasma creatinine measurement (mass/volume) 0.91 mg/dL 0.60-1.30 Serum or plasma urea nitrogen/creatinine mass ratio 23 NRG Serum or plasma creatinine measurement with calculation of estimated glomerular filtration rate 59 NRG Serum or plasma glucose measurement (mass/volume) 130 mg/dL 70-105 Serum or plasma calcium measurement (mass/volume) 11.7 mg/dL 8.5-10.1 Serum or plasma total bilirubin measurement (mass/volume) 0.3 mg/dL 0.1-1.0 Serum or plasma alkaline phosphatase measurement (enzymatic activity/volume) 69 U/L 40-136 Serum or plasma aspartate aminotransferase measurement (enzymatic activity/ volume) 30 U/L 5-34 Serum or plasma alanine aminotransferase measurement (enzymatic activity/volume ) 19 U/L 0-55 Serum or plasma protein measurement (mass/volume) 6.6 g/dL 6.4-8.2 Serum or plasma albumin measurement (mass/volume) 3.8 g/dL 3.2-4.5 CALCIUM CORRECTED 11.9 mg/dL 8.5-10.1 Magnesium - 07/22/18 22:25 Magnesium 2.1 mg/dL 1.8-2.4 Serum or plasma troponin i.cardiac measurement (mass/volume) - 07/22/18 22:25 Serum or plasma troponin i.cardiac measurement (mass/volume) < ng/ mL <0.30 Complete urinalysis with reflex to culture - 07/23/18 00:10 Urine color determination YELLOW NRG Urine clarity determination SLIGHTLY CLOUDY NRG Urine pH measurement by test strip 7 5-9 Specific gravity of urine by test strip 1.010 1.016- 1.022 Urine protein assay by test strip, semi-quantitative NEGATIVE NEGATIVE Urine glucose detection by automated test strip NEGATIVE NEGATIVE Erythrocytes detection in urine sediment by light microscopy NEGATIVE NEGATIVE Urine ketones detection by automated test strip NEGATIVE NEGATIVE Urine nitrite detection by test strip NEGATIVE NEGATIVE Urine total bilirubin detection by test strip NEGATIVE NEGATIVE Urine urobilinogen measurement by automated test strip (mass/volume) NORMAL NORMAL Urine leukocyte esterase detection by dipstick 3+ NEGATIVE Automated urine sediment erythrocyte count by microscopy (number/high power field) NONE NRG Automated urine sediment leukocyte count by microscopy (number/high power field ) [HPF] NRG Bacteria detection in urine sediment by light microscopy FEW NRG Squamous epithelial cells detection in urine sediment by light microscopy 5-10 NRG Crystals detection in urine sediment by light microscopy PRESENT NRG Casts detection in urine sediment by light microscopy NONE NRG Mucus detection in urine sediment by light microscopy NEGATIVE NRG Complete urinalysis with reflex to culture YES NRG Amorphous sediment detection in urine sediment by light microscopy FEW LATONYA PHOSPHATE NRG Bacterial urine culture - 07/23/18 00:10 Bacterial urine culture SEE COMMEN NRG COLONY COUNT . NRG Encounters ACCT No. Visit Date/Time Discharge Status Pt. Type Provider Facility Loc./Unit Complaint [id number] 12/08/2014 15:10:00 12/08/2014 23:59:59 CLS Outpatient KATLINL DEVELOPMENT ANALYSTPOLA LopezARTURO L [id number] 08/27/2014 12:02:00 08/27/2014 23:59:59 CLS Outpatient TAMMY MEZA DO [id number] 09/04/2013 13:42:00 09/04/2013 23:59:59 CLS Outpatient TAMMY MEZA DO [id number] 07/17/2013 16:19:00 07/17/2013 23:59:59 CLS Outpatient IRVINAVA HENDRICKS DDS [id number] 07/16/2012 16:22:00 07/16/2012 23:59:59 CLS Outpatient [id number] 03/13/2018 00:00:00 03/29/2018 09:06:00 DIS Outpatient Tom Nixon [id number] 06/10/2017 00:00:00 07/07/2017 11:08:00 DIS Outpatient Tom Nixon [id number] 04/27/2017 14:02:00 05/02/2017 15:40:00 DIS Outpatient Tom Nixon [id number] 07/22/2018 22:20:00 07/23/2018 01:06:00 DIS Emergency LIAM PORRAS DO [facility] ER SYNCOPAL EPISODE [id number] 02/17/2018 16:20:00 02/21/2018 15:10:00 DIS Inpatient TOM NIXON MD [facility] 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,FALL SAME LEVEL, CONFUSION [id number] 05/04/2017 22:14:00 05/09/2017 11:23:00 DIS Inpatient TOM NIXON MD [facility] 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 [id number] 11/02/2015 09:46:00 11/02/2015 23:59:59 CLS Outpatient TOM NIXON MD [facility] RAD SCREENING [id number] 02/05/2014 07:31:00 02/05/2014 23:59:59 CLS Outpatient JULIENNE MILLIGAN MD [facility] PREOP FOLLOW UP [id number] 10/04/2013 07:00:00 10/04/2013 11:30:00 DIS [facility] [id number] 10/02/2013 09:29:00 10/02/2013 23:59:59 CLS Outpatient JULIENNE MILLIGAN MD Via [facility] PREOP HISTORY OF POLYPS [id number] 11/02/2015 09:45:00 Document Registration [id number] 08/28/2012 09:14:00 Document Registration [id number] 06/25/2010 11:26:00 Document Registration [id number] 06/04/2010 07:53:00 Document Registration [id number] 08/11/2017 15:00:00 08/11/2017 23:59:59 CLS Outpatient [facility]
--- NOTE | 2018-09-15 14:57 | ED Neurological Problem ---
General Stated Complaint: STROKE LIKE SYMPTONS, FALL Source: patient, family, EMS Exam Limitations: physical impairment History of Present Illness Date Seen by Provider: Sep 15, 2018 Time Seen by Provider: 14:53 Initial Comments This 82-year-old female presents in a confused state by EMS. The patient offered a history of having fallen and hitting her head last night. The patient on EMS arrival was awake and alert but appeared to be playing solitaire on an imaginary board. Best history from the family is that the patient may have been lying on the floor in her bathroom in her nightgown since 1 a.m. (more than 12 hours ago). The patient denied any particular pain, lateralized or localizing weakness, change in medications, associated fever, chills, stiff neck or photophobia. The patient's past medical history at this point as somewhat limited. However history from the family reveals that the patient has similar presentations in the past from urinary tract infections. Although the patient is a DO NOT RESUSCITATE the family and patient request other reasonable interventions such as IV fluids, antibiotics, oxygen, etc. Allergies and Home Medications Allergies Coded Allergies: No Known Drug Allergies (Unverified , 10/04/13) Home Medications Acetaminophen 325 Mg Tablet, 325 MG PO Q6H PRN for PAIN-MILD TO MODERATE, ( Reported) Allopurinol 100 Mg Tablet, 100 MG PO DAILY, (Reported) Cefdinir 300 Mg Capsule, 300 MG PO BID FOR INFECTION Prescribed by: LIAM PORRAS on 07/23/18 0047 Citalopram Hydrobromide 10 Mg Tablet, 10 MG PO DAILY, (Reported) Fenofibrate,Micronized 134 Mg Capsule, 134 MG PO DAILY, (Reported) Hydrochlorothiazide 25 Mg Tablet, 25 MG PO DAILY, (Reported) Metronidazole 250 Mg Tablet, 250 MG PO BID, (Reported) Saccharomyces Boulardii 250 Mg Capsule, 250 MG PO BID, (Reported) Patient Home Medication List Home Medication List Reviewed: Yes Review of Systems Review of Systems Constitutional: No chills, No fever Eyes: Denies Blurred Vision, Denies Photophobia Ears, Nose, Mouth, Throat: denies ear pain, denies ear discharge Respiratory: No cough Cardiovascular: No chest pain Gastrointestinal: No abdominal pain, No nausea, No vomiting Genitourinary: no symptoms reported; No dysuria : No Musculoskeletal: No back pain Skin: No change in color, No rash Psychiatric/Neurological: Cognitive Dysfunction Endocrine: No Symptoms Reported Hematologic/Lymphatic: No Symptoms Reported Past Gdlvqlo-Nvourz-Lrbooc Hx Past Med/Social Hx: Reviewed Nursing Past Med/Soc Hx Patient Social History 2nd Hand Smoke Exposure: No Recent Foreign Travel: No Contact w/Someone Who Travel: No Recent Hopitalizations: No Immunizations Up To Date Tetanus Booster (TDap): Less than 5yrs Date of Pneumonia Vaccine: Aug 20, 2013 Date of Influenza Vaccine: Sep 01, 2017 Seasonal Allergies Seasonal Allergies: No Past Medical History Surgeries: Yes (henry total knee replacement; rectal fistula) Gallbladder, Hysterectomy, Orthopedic Respiratory: No Currently Using CPAP: No Currently Using BIPAP: No Cardiac: Yes (edema to lower ext) 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 Genitourinary: No Gastrointestinal: Yes C-Diff Musculoskeletal: Yes (ARTHRITIS) Arthritis, Gout Endocrine: No HEENT: Yes Cataract Cancer: Yes (recent diagnosis; 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 Did You Recieve Any Treatments: No Psychosocial: Yes Anxiety, Depression Integumentary: No (SHINGLES) Recent Skin Changes Blood Disorders: No Family Medical History Arthritis 19 MOTHER CVA 19 FATHER Cardiovascular disease G8 SISTER FH: colon cancer 19 MOTHER FH: prostate cancer 19 FATHER Irritable bowel syndrome daughter Renal stone 19 FATHER daughter No Pertinent Family Hx Physical Exam Vital Signs Vital Signs - First Documented 09/15/18 14:52 Temp 100.4 Pulse 82 Resp 18 B/P (MAP) 177/132 (147) Pulse Ox 99 Capillary Refill : Height, Weight, BMI Height: 5'2.00" Weight: 185lbs. 0oz. 83.849375en; 35.9 BMI Method:Stated General Appearance: WD/WN, mild distress HEENT: normal ENT inspection Neck: full range of motion Respiratory: lungs clear Cardiovascular: regular rate, rhythm Gastrointestinal: non tender, soft Back: normal inspection Extremities: normal range of motion Neurologic/Psychiatric: no motor/sensory deficits, alert, normal mood/affect, oriented x 3 Crainal Nerves: normal hearing, normal speech Motor/Sensory: no motor deficit, no sensory deficit Focused Exam Lactate Level 09/15/18 15:03: Lactic Acid Level 2.63*H Lactic Acid Level Laboratory Tests Test 09/15/18 15:03 Lactic Acid Level 2.63 MMOL/L (0.50-2.00) *H Progress/Results/Core Measures Results/Orders Lab Results Laboratory Tests Test 09/15/18 15:03 09/15/18 15:14 Range/Units White Blood Count 11.1 H 4.3-11.0 10^3/uL Red Blood Count 4.26 L 4.35-5.85 10^6/uL Hemoglobin 13.4 11.5-16.0 G/DL Hematocrit 41 35-52 % Mean Corpuscular Volume 97 80-99 FL Mean Corpuscular Hemoglobin 32 25-34 PG Mean Corpuscular Hemoglobin Concent 33 32-36 G/DL Red Cell Distribution Width 15.3 H 10.0-14.5 % Platelet Count 152 130-400 10^3/uL Mean Platelet Volume 11.3 H 7.4-10.4 FL Neutrophils (%) (Auto) 89 H 42-75 % Lymphocytes (%) (Auto) 5 L 12-44 % Monocytes (%) (Auto) 5 0-12 % Eosinophils (%) (Auto) 0 0-10 % Basophils (%) (Auto) 0 0-10 % Neutrophils # (Auto) 9.9 H 1.8-7.8 X 10^3 Lymphocytes # (Auto) 0.6 L 1.0-4.0 X 10^3 Monocytes # (Auto) 0.6 0.0-1.0 X 10^3 Eosinophils # (Auto) 0.0 0.0-0.3 10^3/uL Basophils # (Auto) 0.0 0.0-0.1 10^3/uL Neutrophils % (Manual) 92 % Lymphocytes % (Manual) 3 % Monocytes % (Manual) 5 % Blood Morphology Comment NORMAL Sodium Level 139 135-145 MMOL/L Potassium Level 3.8 3.6-5.0 MMOL/L Chloride Level 103 98-107 MMOL/L Carbon Dioxide Level 19 L 21-32 MMOL/L Anion Gap 17 H 5-14 MMOL/L Blood Urea Nitrogen 18 7-18 MG/DL Creatinine 0.88 0.60-1.30 MG/DL Estimat Glomerular Filtration Rate > 60 BUN/Creatinine Ratio 20 Glucose Level 136 H 70-105 MG/DL Lactic Acid Level 2.63 *H 0.50-2.00 MMOL/L Calcium Level 11.5 H 8.5-10.1 MG/DL Corrected Calcium 11.3 H 8.5-10.1 MG/DL Total Bilirubin 0.8 0.1-1.0 MG/DL Aspartate Amino Transf (AST/SGOT) 45 H 5-34 U/L Alanine Aminotransferase (ALT/SGPT) 23 0-55 U/L Alkaline Phosphatase 72 40-136 U/L Total Creatine Kinase 330 H 29-168 U/L Troponin I < 0.30 <0.30 NG/ML Total Protein 7.6 6.4-8.2 GM/DL Albumin 4.2 3.2-4.5 GM/DL Urine Color YELLOW Urine Clarity CLEAR Urine pH 7 5-9 Urine Specific [place] 1.015 L 1.016-1.022 Urine Protein 2+ H NEGATIVE Urine Glucose (UA) NEGATIVE NEGATIVE Urine Ketones NEGATIVE NEGATIVE Urine Nitrite NEGATIVE NEGATIVE Urine Bilirubin NEGATIVE NEGATIVE Urine Urobilinogen NORMAL NORMAL MG/DL Urine Leukocyte Esterase 1+ H NEGATIVE Urine RBC (Auto) 2+ H NEGATIVE Urine RBC NONE /HPF Urine WBC 0-2 /HPF Urine Crystals PRESENT H /LPF Urine Amorphous Sediment LARGE LATONYA PHOSPHATE H /LPF Urine Bacteria NEGATIVE /HPF Urine Casts NONE /LPF Urine Mucus NEGATIVE /LPF Urine Culture Indicated NO My Orders Orders - JULIENNE BERNSTEIN MD Cbc With Automated Diff (09/15/18 14:45) Comprehensive Metabolic Panel (09/15/18 14:45) Ua Culture If Indicated (09/15/18 14:45) Ct Head/Cervical Spine Wo (09/15/18 14:45) Blood Culture (09/15/18 14:59) Lactic Acid Analyzer (09/15/18 14:59) Chest 1 View, Ap/Pa Only (09/15/18 14:59) Continuous Ekg Monitoring (09/15/18 14:59) Troponin I (09/15/18 14:59) Manual Differential (09/15/18 15:03) Lorazepam Injection (Ativan Injection) (09/15/18 15:30) Ceftriaxone For Iv Use (Rocephin For I (09/15/18 15:30) Ns Iv 1000 Ml (Sodium Chloride 0.9%) (09/15/18 15:30) Medications Given in ED Current Medications Medications Dose Ordered Sig/Sunita Route Start Time Stop Time Status Last Admin Dose Admin Ceftriaxone Sodium 2000 mg/ Sodium Chloride 50 ml @ 100 mls/hr ONCE ONCE IV 09/15/18 15:30 09/15/18 15:59 09/15/18 15:44 100 MLS/HR Lorazepam 1 mg ONCE ONCE IVP 09/15/18 15:30 09/15/18 15:31 DC 09/15/18 15:43 1 MG Vital Signs/I&O 09/15/18 14:52 Temp 100.4 Pulse 82 Resp 18 B/P (MAP) 177/132 (147) Pulse Ox 99 Progress Progress Note : Time: 15:52 Progress Note The patient's CT of her head and neck failed to demonstrate evidence of hemorrhage or fracture. The patient's chest x-ray was similarly benign. EKG demonstrated sinus rhythm with a rate of approximately 80. Patient laboratory evaluation demonstrated leukocytosis but not significant amount of bacteria. Patient's white count was essentially unremarkable. Patient's lactic acid was elevated at greater than 2 but less than 3. 2 blood cultures were drawn. Patient received 2 g of Rocephin IV. Telephone consultation was undertaken with Dr. Nixon and we discussed the patient's presentation and plans for treatment. We both agreed that the patient should be given IV fluids judiciously in view of her normotensive state and normal pulse rate. Initial ECG Rhythm: Normal Sinus Departure Communication (Admissions) Time/Spoke to Admitting Phy: 15:55 Dr. Nixon. Impression Primary Impression: Fever Qualified Codes: R50.9 - Fever, unspecified Additional Impression: Elevated lactic acid level Disposition: ADMITTED INPATIENT Condition: Improved Admissions Decision to Admit Reason: Admit from ER (General) Decision to Admit/Date: Sep 15, 2018 Time/Decision to Admit Time: 15:57 Departure-Patient Inst. Referrals: AWA NIXON MD (PCP/Family) Primary Care Physician JULIENNE BERNSTEIN MD Sep 15, 2018 14:57
--- NOTE | 2018-09-15 15:10 | Diagnostic Imaging Report ---
PROCEDURE: CT head and CT cervical spine without contrast. TECHNIQUE: Multiple contiguous axial images were obtained through the brain and cervical spine without the use of intravenous contrast. Sagittal and coronal reformations through the cervical spine were then performed. INDICATION: Fall 14 hours ago, found down, altered mental status. COMPARISON: CT head from 07/22/2018 and previous cervical spine imaging. CT HEAD: There is generalized cerebral cortical atrophy and substantial periventricular white matter small vessel sequelae. These findings are identical to prior. There is no sulcal effacement. The basilar cisterns are patent. There is no mass or mass effect. There is no evidence for an elevation of the intracranial pressures. Either bony exostosis or chronic calcified meningiomas found along the left posterior parietal convexity chronic. No calvarial fracture deformity. No hemo-sinus. No Acute-appearing intracerebral pathology. CT CERVICAL SPINE: Body heights are maintained. The alignment is within normal limits. The prevertebral space is unremarkable. There is no substantial canal stenosis. There are degenerative changes to the facets but no facet joint separation or dislocation. There is no listhesis. No acute or suspect endplate irregularity and no cervical fracture is found. There is vascular calcifications of the carotids. IMPRESSION: 1. CT head: Chronic atrophic changes. Chronic benign calcification along the left posterior convexity. No findings suggestive of cortical edema, hemorrhage or acute pathology. 2. CT CERVICAL SPINE: Chronic degenerative changes without fracture or traumatic malalignment. Dictated by: Dictated on workstation # [id number]
[2018-09-15 15:24] LABS: BASOPHILS % (AUTO) 0 % (0-10); EOSINOPHILS % (AUTO) 0 % (0-10); HEMATOCRIT 41 % (35-52); HEMOGLOBIN 13.4 G/DL (11.5-16.0); LYMPHOCYTES # (AUTO) 0.6 X 10^3 (1.0-4.0); LYMPHOCYTES % (AUTO) 5 % (12-44); MEAN CORPUSCULAR HEMOGLOBIN 32 PG (25-34); MEAN CORPUSCULAR HGB CONC 33 G/DL (32-36); MEAN CORPUSCULAR VOLUME 97 FL (80-99); MEAN PLATELET VOLUME 11.3 FL (7.4-10.4); MONOCYTES # (AUTO) 0.6 X 10^3 (0.0-1.0); MONOCYTES % (AUTO) 5 % (0-12); NEUTROPHILS # (AUTO) 9.9 X 10^3 (1.8-7.8); NEUTROPHILS % (AUTO) 89 % (42-75); PLATELET COUNT 152 10^3/uL (130-400); RED BLOOD COUNT 4.26 10^6/uL (4.35-5.85); RED CELL DISTRIBUTION WIDTH 15.3 % (10.0-14.5); WHITE BLOOD COUNT 11.1 10^3/uL (4.3-11.0)
[2018-09-15 15:26] LABS: BILIRUBIN,URINE NEGATIVE (NEGATIVE); CLARITY,URINE CLEAR; COLOR,URINE YELLOW; GLUCOSE, URINE (UA) NEGATIVE (NEGATIVE); KETONES,URINE NEGATIVE (NEGATIVE); LEUKOCYTE ESTERASE ,URINE 1+ (NEGATIVE); NITRITE,URINE NEGATIVE (NEGATIVE); PH,URINE 7 (5-9); PROTEIN,URINE 2+ (NEGATIVE); UROBILINOGEN,URINE NORMAL (NORMAL)
[2018-09-15] MEDS ORDERED: cefTRIAXone FOR IV USE 2,000 MG in NS (IVPB) 50 ML IV ONE (15:30)
[2018-09-15] MEDS ORDERED: NS IV 1000 ML 1,000 ML IV SCH ×2 (15:30→17:30)
[2018-09-15] MEDS ORDERED: LORazepam INJ 2 MG/ML (ATIVAN) VIAL IVP ONE ×2 (15:30→16:45)
[2018-09-15 15:42] LABS: ALANINE AMINOTRANSFERASE 23 U/L (0-55); ALBUMIN 4.2 GM/DL (3.2-4.5); ALKALINE PHOSPHATASE 72 U/L (40-136); BILIRUBIN,TOTAL 0.8 MG/DL (0.1-1.0); BUN/CREATININE RATIO 20; CALCIUM 11.5 MG/DL (8.5-10.1); CARBON DIOXIDE 19 MMOL/L (21-32); CHLORIDE 103 MMOL/L (98-107); CREATINE KINASE 330 U/L (29-168); CREATININE SERUM 0.88 MG/DL (0.60-1.30); GFR ESTIMATED > 60; GLUCOSE 136 MG/DL (70-105); LYMPHOCYTES % (MANUAL) 3 %; MONOCYTES % (MANUAL) 5 %; NEUTROPHILS % (MANUAL) 92 %; POTASSIUM 3.8 MMOL/L (3.6-5.0); RBC MORPH NORMAL; SODIUM 139 MMOL/L (135-145); TOTAL PROTEIN 7.6 GM/DL (6.4-8.2)
[2018-09-15 15:45] LABS: AMORPHOUS SEDIMENT,UR LARGE AMOR PHOSPHATE /LPF; BACTERIA,URINE NEGATIVE /HPF; WBC,URINE 0-2 /HPF
--- NOTE | 2018-09-15 15:48 | Diagnostic Imaging Report ---
INDICATION: Fall, found down. FINDINGS: Lungs are free of infiltrate. No evidence for aspiration. No failure, effusion or pneumothorax. IMPRESSION: No acute appearing abnormality. Dictated by: Dictated on workstation # [id number]
--- OUTSIDE RECORDS SUMMARY | 2018-09-15 16:30 | XMS REPORT | Continuity of Care Document ---
Author Author [facility] Address Unknown Phone Unavailable Allergies Active Description Code Type Severity Reaction Onset Reported/Identified Relationship to Patient Clinical Status Yes No Known Drug Allergies [id number] Drug Allergy Unknown N/A 10/04/2013 Medications There is no data. Problems Date Dx Coded Attending Type Code Diagnosis Diagnosed By 06/25/2010 Ot 211.3 06/25/2010 Ot V16.0 06/25/2010 Ot V67.09 04/18/2012 692.9 DERMATITIS CONTACT UNSPECIFIED 04/18/2012 AVA BRYAN DDS 692.9 DERMATITIS CONTACT UNSPECIFIED 04/18/2012 MEZA DO, TAMMY K 692.9 DERMATITIS CONTACT UNSPECIFIED 04/18/2012 MEZA DO, TAMMY K 692.9 DERMATITIS CONTACT UNSPECIFIED 04/18/2012 MADL WATER TAXI CAPTAIN, ARTURO L 692.9 DERMATITIS CONTACT UNSPECIFIED 09/04/2013 MEZA DO, TAMMY K V04.81 FLU SHOT 09/04/2013 MEZA DO, TAMMY K V04.81 FLU SHOT 09/04/2013 MADL WATER TAXI CAPTAIN, ARTURO L V04.81 FLU SHOT 10/04/2013 JULIENNE MILLIGAN MD Ot 211.3 BENIGN NEOPLASM LG BOWEL 10/04/2013 JULIENNE MILLIGAN MD Ot V16.0 FAMILY HX-GI MALIGNANCY 10/04/2013 JULIENNE MILLIGAN MD Ot V76.51 SCREEN MAL NEOP-COLON 12/08/2014 MADL WATER TAXI CAPTAIN, ARTURO L 686.8 OTHER SPECIFIED LOCAL INFECTIONS OF SKIN AND SUBCUTANEOUS TISSUE 12/08/2014 LUCIANA WATER TAXI CAPTAIN, ARTURO L 719.47 PAIN IN JOINT INVOLVING [...] TOM NIXON MD, Ot Y92.003 [facility] NON-INSTITUT (PRIVATE) R 02/21/2018 TOM NIXON MD [...] G0008 FLU ADMINISTRATION ( MEDICARE ONLY) 09/04/2013 55741 ROUTINE VENIPUNCTURE 12/08/2014 15723 THERAPUTIC INJ SQ/IM 12/08/2014 J0696 ROCEPHIN INJ 1 g 12/08/2014 42155 XRAY FOOT RIGHT 2 VIEWS 12/08/2014 80806 CBC 12/08/2014 71059 CMP 12/08/2014 15123 URIC ACID 12/08/2014 2609226 GFR CALC (RESULT ONLY) 12/08/2014 Results Test [...] SEE COMMEN NRG COLONY COUNT . NRG Complete blood count (CBC) with automated white blood cell (WBC) differential - 09/15/18 15:03 Blood leukocytes automated count (number/volume) 11.1 10*3/uL 4.3-11.0 Blood erythrocytes automated count (number/volume) 4.26 10*6/uL 4.35-5.85 Venous blood hemoglobin measurement (mass/volume) 13.4 g/dL 11.5-16.0 Blood hematocrit (volume fraction) 41 % 35-52 Automated erythrocyte mean corpuscular volume 97 [foz_us] 80-99 Automated erythrocyte mean corpuscular hemoglobin (mass per erythrocyte) 32 pg 25-34 Automated erythrocyte mean corpuscular hemoglobin concentration measurement ( mass/volume) 33 g/dL 32-36 Automated erythrocyte distribution width ratio 15.3 % 10.0-14.5 Automated blood platelet count (count/volume) 152 10*3/uL 130-400 Automated blood platelet mean volume measurement 11.3 [foz_us] 7.4-10.4 Automated blood neutrophils/100 leukocytes 89 % 42-75 Automated blood lymphocytes/100 leukocytes 5 % 12-44 Blood monocytes/100 leukocytes 5 % 0-12 Automated blood eosinophils/100 leukocytes 0 % 0-10 Automated blood basophils/100 leukocytes 0 % 0-10 Blood neutrophils automated count (number/volume) 9.9 10*3 1.8-7.8 Blood lymphocytes automated count (number/volume) 0.6 10*3 1.0-4.0 Blood monocytes automated count (number/volume) 0.6 10*3 0.0-1.0 Automated eosinophil count 0.0 10*3/uL 0.0-0.3 Automated blood basophil count (count/volume) 0.0 10*3/uL 0.0-0.1 Comprehensive metabolic panel - 09/15/18 15:03 Serum or plasma sodium measurement (moles/volume) 139 mmol/L 135-145 Serum or plasma potassium measurement (moles/volume) 3.8 mmol/L 3.6-5.0 Serum or plasma chloride measurement (moles/volume) 103 mmol/L 98-107 Carbon dioxide 19 mmol/L 21-32 Serum or plasma anion gap determination (moles/volume) 17 mmol/L 5-14 Serum or plasma urea nitrogen measurement (mass/volume) 18 mg/dL 7-18 Serum or plasma creatinine measurement (mass/volume) 0.88 mg/dL 0.60-1.30 Serum or plasma urea nitrogen/creatinine mass ratio 20 NRG Serum or plasma creatinine measurement with calculation of estimated glomerular filtration rate > NRG Serum or plasma glucose measurement (mass/volume) 136 mg/dL 70-105 Serum or plasma calcium measurement (mass/volume) 11.5 mg/dL 8.5-10.1 Serum or plasma total bilirubin measurement (mass/volume) 0.8 mg/dL 0.1-1.0 Serum or plasma alkaline phosphatase measurement (enzymatic activity/volume) 72 U/L 40-136 Serum or plasma aspartate aminotransferase measurement (enzymatic activity/ volume) 45 U/L 5-34 Serum or plasma alanine aminotransferase measurement (enzymatic activity/volume ) 23 U/L 0-55 Serum or plasma protein measurement (mass/volume) 7.6 g/dL 6.4-8.2 Serum or plasma albumin measurement (mass/volume) 4.2 g/dL 3.2-4.5 CALCIUM CORRECTED 11.3 mg/dL 8.5-10.1 Serum or plasma creatine kinase measurement (enzymatic activity/volume) - 09/15 15:03 Serum or plasma creatine kinase measurement (enzymatic activity/volume) 330 U/L 29-168 Blood manual differential performed detection - 09/15/18 15:03 Blood monocytes/100 leukocytes 5 % NRG Manual blood segmented neutrophils/100 leukocytes 92 % NRG Manual blood lymphocytes/100 leukocytes 3 % NRG Blood erythrocyte morphology finding identification NORMAL NRG Blood lactic acid measurement (moles/volume) - 09/15/18 15:03 Blood lactic acid measurement (moles/volume) 2.63 mmol/L 0.50-2.00 Serum or plasma troponin i.cardiac measurement (mass/volume) - 09/15/18 15:03 Serum or plasma troponin i.cardiac measurement (mass/volume) < ng/ mL <0.30 Complete urinalysis with reflex to culture - 09/15/18 15:14 Urine color determination YELLOW NRG Urine clarity determination CLEAR NRG Urine pH measurement by test strip 7 5-9 Specific gravity of urine by test strip 1.015 1.016- 1.022 Urine protein assay by test strip, semi-quantitative 2+ NEGATIVE Urine glucose detection by automated test strip NEGATIVE NEGATIVE Erythrocytes detection in urine sediment by light microscopy 2+ NEGATIVE Urine ketones detection by automated test [...] urine sediment by light microscopy NEGATIVE NRG Crystals detection in urine sediment by light microscopy PRESENT NRG Casts detection in urine sediment by light microscopy NONE NRG Mucus detection in urine sediment by light microscopy NEGATIVE NRG Complete urinalysis with reflex to culture NO NRG Amorphous sediment detection in urine sediment by light microscopy LARGE LATONYA PHOSPHATE NRG Encounters ACCT No. Visit Date/Time Discharge Status Pt. Type Provider Facility Loc./Unit Complaint [id number] 12/08/2014 15:10:00 12/08/2014 23:59:59 CLS Outpatient ARTURO CHOWDHURY APRN [id number] 08/27/2014 12:02:00 08/27/2014 23:59:59 CLS Outpatient TAMMY MEZA DO [id number] 09/04/2013 13:42:00 09/04/2013 23:59:59 CLS Outpatient TAMMY MEZA DO [id number] 07/17/2013 16:19:00 07/17/2013 23:59:59 CLS Outpatient IRVIN AVA ARNETT [id number] 07/16/2012 16:22:00 07/16/2012 23:59:59 CLS Outpatient [id number] 03/13/2018 00:00:00 03/29/2018 09:06:00 DIS Outpatient Tom Nixon [id number] 06/10/2017 00:00:00 07/07/2017 11:08:00 DIS Outpatient Tom Nixon [id number] 04/27/2017 14:02:00 05/02/2017 15:40:00 DIS Outpatient Tom Nixon [id number] 07/22/2018 22:20:00 07/23/2018 01:06:00 DIS Emergency LIAM PORRAS DO Via [facility] ER SYNCOPAL EPISODE [id number] 02/17/2018 16:20:00 02/21/2018 15:10:00 DIS Inpatient TOM NIXON MD Via [facility] 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,FALL SAME LEVEL, CONFUSION [id number] 05/04/2017 22:14:00 05/09/2017 11:23:00 DIS Inpatient TOM NIXON MD Via [facility] 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 [id number] 11/02/2015 09:46:00 11/02/2015 23:59:59 CLS Outpatient TOM NIXON MD [facility] RAD SCREENING [id number] 02/05/2014 07:31:00 02/05/2014 23:59:59 CLS Outpatient JULIENNE MILLIGAN MD Via [facility] PREOP FOLLOW UP [id number] 10/04/2013 07:00:00 10/04/2013 11:30:00 DIS Outpatient JULIENNE MILLIGAN MD Via [facility] HISTORY OF POLYPS [id number] 10/02/2013 09:29:00 10/02/2013 23:59:59 CLS Outpatient JULIENNE MILLIGAN MD Via [facility] PREOP HISTORY OF POLYPS [id number] 09/15/2018 15:26:00 Document Registration [id number] 11/02/2015 09:45:00 Document Registration [id number] 08/28/2012 09:14:00 Document Registration [id number] 06/25/2010 11:26:00 Document Registration [id number] 06/04/2010 07:53:00 Document Registration [id number] 08/11/2017 15:00:00 08/11/2017 23:59:59 CLS Out[facility]
[2018-09-15] MEDS ORDERED: NS IV 1000 ML 1,000 ML ONE (16:36)
[2018-09-15] MEDS: NS IV 1000 ML 1,000 ML IV SCH ×2 (16:43→20:42)
[2018-09-15 17:15] VITALS: BP 180/77
[2018-09-15] MEDS ORDERED: LORazepam INJ 2 MG/ML (ATIVAN) VIAL IVP PRN (17:45)
--- NOTE | 2018-09-15 18:09 | History & Physicial ---
History of Present Illness History of Present Illness Reason for visit/HPI 82-year-old female who lives independently in [facility] was found lying on the floor in her bathroom after an apparent fall. Apparently he was unsure how long she had been lying on her bathroom floor. Patient was insistent that she wanted to get to her cell phone and did not press her life alert button. Ultimately she did and EMS arrived and brought her to the hospital. She apparently had struck her head, right elbow, and buttock cheeks. It is unclear whether she had loss of consciousness. She had fall in February of this year as well. She did appear to be somewhat confused but overall still recognized myself as well as her family members today. Date of Admission Sep 15, 2018 at 16:00 Date Seen by a Provider: Sep 15, 2018 Time Seen by a Provider: 18:40 I consulted on this patient on 09/15/18 18:08 Attending Physician Tom Nixon MD Admitting Physician Tom Nixon MD Consult Allergies and Home Medications Allergies Coded Allergies: No Known Drug Allergies (Unverified , 10/04/13) Home Medications Acetaminophen 325 Mg Tablet, 325 MG PO Q6H PRN for PAIN-MILD TO MODERATE, ( Reported) Allopurinol 100 Mg Tablet, 100 MG PO DAILY, (Reported) Citalopram Hydrobromide 10 Mg Tablet, 10 MG PO DAILY, (Reported) Fenofibrate,Micronized 134 Mg Capsule, 134 MG PO DAILY, (Reported) Hydrochlorothiazide 25 Mg Tablet, 25 MG PO DAILY, (Reported) Metronidazole 250 Mg Tablet, 250 MG PO BID, (Reported) Saccharomyces Boulardii 250 Mg Capsule, 250 MG PO BID, (Reported) Patient Home Medication List Home Medication List Reviewed: Yes Past Wxxaaww-Sdegqo-Vowcvi Hx Patient Social History Marrital Status: Alcohol Use: Denies Use Recreational Drug Use: No Smoking Status: Never a Smoker 2nd Hand Smoke Exposure: No Recent Foreign Travel: No Contact w/other who traveled: No Recent Hopitalizations: No Recent Infectious Disease Expo: No Immunizations Up To Date Tetanus Booster (TDap): Less than 5yrs Date of Pneumonia Vaccine: Aug 20, 2013 Date of Influenza Vaccine: Sep 08, 2017 Seasonal Allergies Seasonal Allergies: No Surgeries Yes (henry total knee replacement; rectal fistula) Gallbladder, Hysterectomy, Orthopedic Respiratory No Currently Using CPAP: No Currently Using BIPAP: No Cardiovascular Yes (edema to lower ext) Neurological No 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 System MOPHEAD SEWER History: Hysterectomy Genitourinary No Gastrointestinal Yes C-Diff Musculoskeletal Yes (ARTHRITIS) Arthritis, Gout Endocrine History of Endocrine Disorders: No HEENT History of HEENT Disorders: Yes HEENT Disorders: Cataract Cancer Yes (recent diagnosis; 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 Did You Recieve Any Treatments: No Psychosocial History of Psychiatric Problem: Yes Behavioral Health Disorders: Anxiety, Depression Integumentary History of Skin or Integumenta: No (SHINGLES) Skin/Integumentary Disorders: Recent Skin Changes Blood Transfusions History of Blood Disorders: No Family Medical History Significant Family History: No Pertinent Family Hx Family Hx: Arthritis 19 MOTHER CVA 19 FATHER Cardiovascular disease G8 SISTER FH: colon cancer 19 MOTHER FH: prostate cancer 19 FATHER Irritable bowel syndrome daughter Renal stone 19 FATHER daughter Review of Systems Constitutional: see HPI Physical Exam Vital Signs Vital Signs - First Documented 09/15/18 09/15/18 09/15/18 14:52 17:15 19:33 Temp 100.4 Pulse 82 Resp 18 B/P (MAP) 177/132 (147) Pulse Ox 99 O2 Delivery Room Air FiO2 21 Capillary Refill : Less Than 3 Seconds Height, Weight, BMI Height: 5'4.00" Weight: 190lbs. 0oz. [id number]; 35.9 BMI Method:Stated General Appearance: No Apparent Distress Eyes: Bilateral Eye Normal Inspection HEENT: Pharynx Normal, Other (Slight bruise along the right temporal region) Neck: Supple Respiratory: Lungs Clear Cardiovascular: Regular Rate, Rhythm Gastrointestinal: Normal Bowel Sounds, Soft Rectal: Deferred Back: Normal Inspection, No CVA Tenderness Extremity: Normal Capillary Refill, Other (Bruising at right elbow) Neurologic/Psychiatric: Alert, Other (Somewhat confused) Skin: Normal Color Comments NAME: JESSICA PAYAN [facility] REC#: [id number] PT STATUS: REG ER : 1935 PHYSICIAN: JULIENNE BERNSTEIN MD ADMIT DATE: 09/15/18/ER Signed Date of Exam: 09/15/18 CT HEAD/CERVICAL SPINE WO PROCEDURE: CT head and CT cervical spine without contrast. TECHNIQUE: Multiple contiguous axial images were obtained through the brain and cervical spine without the use of intravenous contrast. Sagittal and coronal reformations through the cervical spine were then performed. INDICATION: Fall 14 hours ago, found down, altered mental status. COMPARISON: CT head from 07/22/2018 and previous cervical spine imaging. CT HEAD: There is generalized cerebral cortical atrophy and substantial periventricular white matter small vessel sequelae. These findings are identical to prior. There is no sulcal effacement. The basilar cisterns are patent. There is no mass or mass effect. There is no evidence for an elevation of the intracranial pressures. Either bony exostosis or chronic calcified meningiomas found along the left posterior parietal convexity chronic. No calvarial fracture deformity. No hemo-sinus. No Acute-appearing intracerebral pathology. CT CERVICAL SPINE: Body heights are maintained. The alignment is within normal limits. The prevertebral space is unremarkable. There is no substantial canal stenosis. There are degenerative changes to the facets but no facet joint separation or dislocation. There is no listhesis. No acute or suspect endplate irregularity and no cervical fracture is found. There is vascular calcifications of the carotids. IMPRESSION: 1. CT head: Chronic atrophic changes. Chronic benign calcification along the left posterior convexity. No findings suggestive of cortical edema, hemorrhage or acute pathology. 2. CT CERVICAL SPINE: Chronic degenerative changes without fracture or traumatic malalignment. Dictated by: Dictated on workstation # [id number] Dict: 09/15/18 1459 Trans: 09/15/18 1546 Interpreted by: ROBYN CASSIDY Electronically signed by: ROBYN CASSIDY 09/15/18 1546 Assessment/Plan Assessment and Plan 1. Fall with resultant head injury -Neuro checks 2. Elevated lactic acid with apparent fever--exclude sepsis. Chest x-ray is clear and the urine analysis was not suggestive of urosepsis. -2 blood cultures obtained in the emergency department -Patient received Rocephin 2 g in the ED with 1 g every 24 hours written -Recheck CBC in the morning and lactic acid 6 hours following admission. Admission Diagnosis 1. Fall with resultant head injury 2. Elevated lactic acid with apparent fever Admission Status: Inpatient Order (span 2 midnights) Reason for Inpatient Admission: Further neurological checks. Initiation of IV antibiotics due to elevated lactic acid. hospitality services manager consultation regarding her ability to care for herself at home TOM NIXON MD Sep 15, 2018 18:09
[2018-09-15] MEDS ORDERED: LORazepam INJ 2 MG/ML (ATIVAN) VIAL ONE (18:53)
[2018-09-15 19:33] VITALS: BP 180/77
[2018-09-15 20:15] VITALS: BP 144/68
[2018-09-15 23:55] VITALS: BP 121/56
[2018-09-16] MEDS: NS IV 1000 ML 1,000 ML IV SCH ×5 (01:57→22:54)
[2018-09-16 04:35] VITALS: BP 125/57
[2018-09-16 05:44] LABS: BASOPHILS % (AUTO) 0 % (0-10); EOSINOPHILS % (AUTO) 0 % (0-10); HEMATOCRIT 34 % (35-52); HEMOGLOBIN 10.7 G/DL (11.5-16.0); LYMPHOCYTES % (AUTO) 14 % (12-44); MEAN CORPUSCULAR HEMOGLOBIN 31 PG (25-34); MEAN CORPUSCULAR HGB CONC 32 G/DL (32-36); MEAN CORPUSCULAR VOLUME 98 FL (80-99); MONOCYTES # (AUTO) 0.7 X 10^3 (0.0-1.0); MONOCYTES % (AUTO) 10 % (0-12); NEUTROPHILS # (AUTO) 5.2 X 10^3 (1.8-7.8); NEUTROPHILS % (AUTO) 75 % (42-75); PLATELET COUNT 122 10^3/uL (130-400); RED BLOOD COUNT 3.43 10^6/uL (4.35-5.85); RED CELL DISTRIBUTION WIDTH 15.5 % (10.0-14.5)
[2018-09-16 06:25] LABS: ALANINE AMINOTRANSFERASE 18 U/L (0-55); ALBUMIN 3.2 GM/DL (3.2-4.5); ALKALINE PHOSPHATASE 51 U/L (40-136); BILIRUBIN,TOTAL 0.7 MG/DL (0.1-1.0); BUN/CREATININE RATIO 21; CALCIUM 10.3 MG/DL (8.5-10.1); CARBON DIOXIDE 21 MMOL/L (21-32); CHLORIDE 109 MMOL/L (98-107); CREATININE SERUM 0.73 MG/DL (0.60-1.30); GFR ESTIMATED > 60; GLUCOSE 92 MG/DL (70-105); POTASSIUM 3.1 MMOL/L (3.6-5.0); SODIUM 140 MMOL/L (135-145); TOTAL PROTEIN 5.5 GM/DL (6.4-8.2)
[2018-09-16 08:00] VITALS: BP 137/64
--- NOTE | 2018-09-16 08:36 | Progress Note (SOAP) ---
Subjective Date Seen by a Provider: Sep 16, 2018 Time Seen by a Provider: 07:50 Subjective/Events-last exam Patient is more coherent this morning. She recognizes myself readily and her family members as well. She does not complain of any specific pain. She does have Woo catheter and so is not ambulatory yet. Focused Exam Lactate Level 09/15/18 15:03: Lactic Acid Level 2.63*H 09/15/18 17:19: Lactic Acid Level 2.02*H Objective Exam Vital Signs Date Time Temp Pulse Resp B/P (MAP) Pulse Ox O2 Delivery O2 Flow Rate FiO2 09/16/18 04:35 98.4 67 20 125/57 (79) 94 Room Air 09/15/18 23:55 99.1 70 18 121/56 (77) 95 Room Air 09/15/18 20:15 98.9 72 18 144/68 (93) 95 Room Air 09/15/18 20:00 95 Room Air 09/15/18 19:36 95 Room Air 09/15/18 19:33 76 95 21 09/15/18 17:35 Room Air 09/15/18 17:15 98.0 76 18 180/77 (111) 95 Room Air 09/15/18 16:25 84 14 156/92 (113) 98 09/15/18 14:52 100.4 82 18 177/132 (147) 99 I & O 09/16/18 07:00 Intake Total 2700 ml Output Total 1425 ml Balance 1275 ml Capillary Refill : Less Than 3 Seconds General Appearance: No Apparent Distress HEENT: PERRL/EOMI Neck: Non Tender, Supple Respiratory: Lungs Clear Cardiovascular: Regular Rate, Rhythm Gastrointestinal: soft Extremity: Other (Bruise on right elbow) Neurologic/Psychiatric: Oriented x3 Skin: Normal Color, Cool Results Lab Laboratory Tests 09/15/18 15:03: White Blood Count 11.1H, Red Blood Count 4.26L, Hemoglobin 13.4, Hematocrit 41, Mean Corpuscular Volume 97, Mean Corpuscular Hemoglobin 32, Mean Corpuscular Hemoglobin Concent 33, Red Cell Distribution Width 15.3H, Platelet Count 152, Mean Platelet Volume 11.3H, Neutrophils (%) (Auto) 89H, Lymphocytes (%) (Auto) 5L, Monocytes (%) (Auto) 5, Eosinophils (%) (Auto) 0, Basophils (%) (Auto) 0, Neutrophils # (Auto) 9.9H, Lymphocytes # (Auto) 0.6L, Monocytes # (Auto) 0.6, Eosinophils # (Auto) 0.0, Basophils # (Auto) 0.0, Neutrophils % (Manual) 92, Lymphocytes % (Manual) 3, Monocytes % (Manual) 5, Blood Morphology Comment NORMAL, Sodium Level 139, Potassium Level 3.8, Chloride Level 103, Carbon Dioxide Level 19L, Anion Gap 17H, Blood Urea Nitrogen 18, Creatinine 0.88, Estimat Glomerular Filtration Rate > 60, BUN/Creatinine Ratio 20, Glucose Level 136H, Lactic Acid Level 2.63*H, Calcium Level 11.5H, Corrected Calcium 11.3H, Total Bilirubin 0.8, Aspartate Amino Transf (AST/SGOT) 45H, Alanine Aminotransferase (ALT/SGPT) 23, Alkaline Phosphatase 72, Total Creatine Kinase 330H, Myoglobin 1790.1H, Troponin I < 0.30, Total Protein 7.6, Albumin 4.2 09/15/18 15:14: Urine Color YELLOW, Urine Clarity CLEAR, Urine pH 7, Urine Specific [place] 1.015L, Urine Protein 2+H, Urine Glucose (UA) NEGATIVE, Urine Ketones NEGATIVE, Urine Nitrite NEGATIVE, Urine Bilirubin NEGATIVE, Urine Urobilinogen NORMAL, Urine Leukocyte Esterase 1+H, Urine RBC (Auto) 2+H, Urine RBC NONE, Urine WBC 0- 2, Urine Crystals PRESENTH, Urine Amorphous Sediment LARGE LATONYA PHOSPHATEH, Urine Bacteria NEGATIVE, Urine Casts NONE, Urine Mucus NEGATIVE, Urine Culture Indicated NO 09/15/18 17:19: Lactic Acid Level 2.02*H 09/16/18 05:04: White Blood Count 7.0, Red Blood Count 3.43L, Hemoglobin 10.7#L, Hematocrit 34L , Mean Corpuscular Volume 98, Mean Corpuscular Hemoglobin 31, Mean Corpuscular Hemoglobin Concent 32, Red Cell Distribution Width 15.5H, Platelet Count 122L, Mean Platelet Volume 11.0H, Neutrophils (%) (Auto) 75, Lymphocytes (%) (Auto) 14 , Monocytes (%) (Auto) 10, Eosinophils (%) (Auto) 0, Basophils (%) (Auto) 0, Neutrophils # (Auto) 5.2, Lymphocytes # (Auto) 1.0, Monocytes # (Auto) 0.7, Eosinophils # (Auto) 0.0, Basophils # (Auto) 0.0, Sodium Level 140, Potassium Level 3.1L, Chloride Level 109H, Carbon Dioxide Level 21, Anion Gap 10, Blood Urea Nitrogen 15, Creatinine 0.73, Estimat Glomerular Filtration Rate > 60, BUN/ Creatinine Ratio 21, Glucose Level 92, Calcium Level 10.3H, Corrected Calcium 10.9H, Total Bilirubin 0.7, Aspartate Amino Transf (AST/SGOT) 43H, Alanine Aminotransferase (ALT/SGPT) 18, Alkaline Phosphatase 51, Total Protein 5.5L, Albumin 3.2 Microbiology 09/15/18 Influenza Types A,B Antigen (JUDE) - Final, Complete Assessment/Plan Assessment/Plan Assess & Plan/Chief Complaint 1. Fall with resultant head injury -Neuro checks 09/16 -Neuro checks discontinued -Patient more alert and coherent this morning. -office services specialist consult in the morning of September 17 2. Elevated lactic acid with apparent fever--exclude sepsis. Chest x-ray is clear and the urine analysis was not suggestive of urosepsis. -2 blood cultures obtained in the emergency department -Patient received Rocephin 2 g in the ED with 1 g every 24 hours written -Recheck CBC in the morning and lactic acid 6 hours following admission. 09/16 -Patient is on day number 2 of Rocephin 3. Anemia I suspect this is delusional -Recheck CBC in the morning Clinical Quality Measures Admission Status Admission Dx 1. Fall with resultant head injury 2. Elevated lactic acid with apparent fever DVT/VTE Risk/Contraindication: Risk Factor Score Per Nursin RFS Level Per Nursing on Admit: 4+=Very High AWA NIXON MD Sep 16, 2018 08:36
[2018-09-16] MEDS: cefTRIAXone FOR IV USE 1,000 MG in NS (IVPB) 50 ML IV SCH (08:48)
[2018-09-16] MEDS: FENOFIBRATE 134 MG (LOFIBRA) CAPSULE PO SCH (10:43)
[2018-09-16] MEDS: HYDROCHLOROTHIAZIDE 25 MG (HCTZ) TAB PO SCH (10:43)
[2018-09-16 12:00] VITALS: BP 119/56
[2018-09-16] MEDS ORDERED: MENTHOL/ZINC OXIDE (CALMOSEPTINE) 113 GM TUBE TOP PRN (14:00)
[2018-09-16 16:00] VITALS: BP 113/53
[2018-09-16 20:00] VITALS: BP 148/70
[2018-09-17 00:13] VITALS: BP 133/62
[2018-09-17 04:12] VITALS: BP 154/53
[2018-09-17 06:28] LABS: BASOPHILS % (AUTO) 0 % (0-10); EOSINOPHILS # (AUTO) 0.1 10^3/uL (0.0-0.3); EOSINOPHILS % (AUTO) 2 % (0-10); HEMATOCRIT 34 % (35-52); HEMOGLOBIN 10.6 G/DL (11.5-16.0); LYMPHOCYTES # (AUTO) 0.8 X 10^3 (1.0-4.0); LYMPHOCYTES % (AUTO) 18 % (12-44); MEAN CORPUSCULAR HEMOGLOBIN 31 PG (25-34); MEAN CORPUSCULAR HGB CONC 31 G/DL (32-36); MEAN CORPUSCULAR VOLUME 99 FL (80-99); MEAN PLATELET VOLUME 10.3 FL (7.4-10.4); MONOCYTES # (AUTO) 0.4 X 10^3 (0.0-1.0); MONOCYTES % (AUTO) 9 % (0-12); NEUTROPHILS # (AUTO) 3.2 X 10^3 (1.8-7.8); NEUTROPHILS % (AUTO) 70 % (42-75); PLATELET COUNT 102 10^3/uL (130-400); RED BLOOD COUNT 3.43 10^6/uL (4.35-5.85); RED CELL DISTRIBUTION WIDTH 15.5 % (10.0-14.5); WHITE BLOOD COUNT 4.6 10^3/uL (4.3-11.0)
[2018-09-17 07:17] LABS: BUN/CREATININE RATIO 22; CARBON DIOXIDE 21 MMOL/L (21-32); CHLORIDE 111 MMOL/L (98-107); CREATININE SERUM 0.68 MG/DL (0.60-1.30); GFR ESTIMATED > 60; GLUCOSE 94 MG/DL (70-105); POTASSIUM 3.3 MMOL/L (3.6-5.0); SODIUM 141 MMOL/L (135-145)
[2018-09-17 08:00] VITALS: BP_SYST 106; BP_SYST 161; BP_DIAS 59; BP_DIAS 71
--- NOTE | 2018-09-17 08:24 | Progress Note (SOAP) ---
Subjective Date Seen by a Provider: Sep 17, 2018 Time Seen by a Provider: 07:30 Subjective/Events-last exam Today I spoke with patient as well as her son and daughters. Patient is still somewhat confused but continues to get better each day. She has not ambulated since she has Woo catheter in as well as her IV fluids. She is feeding herself and having some difficulty. Her oral intake is adequate. Focused Exam Lactate Level 09/15/18 15:03: Lactic Acid Level 2.63*H 09/15/18 17:19: Lactic Acid Level 2.02*H Objective Exam Vital Signs Date Time Temp Pulse Resp B/P (MAP) Pulse Ox O2 Delivery O2 Flow Rate FiO2 09/17/18 08:00 Room Air 09/17/18 04:12 99.3 63 17 154/53 (86) 94 Room Air 09/17/18 00:13 99.1 60 19 133/62 (85) 95 Room Air 09/16/18 20:10 95 Room Air 09/16/18 20:00 99.6 72 16 148/70 (96) 95 Room Air 09/16/18 18:57 96 Room Air 09/16/18 16:00 100.0 55 20 113/53 (73) 95 Room Air 09/16/18 12:00 99.2 68 20 119/56 (77) 97 Room Air 09/16/18 08:33 92 Room Air I & O 09/17/18 07:00 Intake Total 2850 ml Output Total 2625 ml Balance 225 ml Capillary Refill : Less Than 3 Seconds General Appearance: No Apparent Distress HEENT: Pharynx Normal Neck: Supple Respiratory: Lungs Clear Cardiovascular: Regular Rate, Rhythm Gastrointestinal: soft Results Lab Laboratory Tests 09/17/18 06:16: White Blood Count 4.6, Red Blood Count 3.43L, Hemoglobin 10.6L, Hematocrit 34L, Mean Corpuscular Volume 99, Mean Corpuscular Hemoglobin 31, Mean Corpuscular Hemoglobin Concent 31L, Red Cell Distribution Width 15.5H, Platelet Count 102L, Mean Platelet Volume 10.3, Neutrophils (%) (Auto) 70, Lymphocytes (%) (Auto) 18 , Monocytes (%) (Auto) 9, Eosinophils (%) (Auto) 2, Basophils (%) (Auto) 0, Neutrophils # (Auto) 3.2, Lymphocytes # (Auto) 0.8L, Monocytes # (Auto) 0.4, Eosinophils # (Auto) 0.1, Basophils # (Auto) 0.0, Sodium Level 141, Potassium Level 3.3L, Chloride Level 111H, Carbon Dioxide Level 21, Anion Gap 9, Blood Urea Nitrogen 15, Creatinine 0.68, Estimat Glomerular Filtration Rate > 60, BUN/ Creatinine Ratio 22, Glucose Level 94, Calcium Level 10.0 Microbiology 09/15/18 Blood Culture - Preliminary, Resulted No growth 09/15/18 Influenza Types A,B Antigen (JUDE) - Final, Complete Assessment/Plan Assessment/Plan Assess & Plan/Chief Complaint 1. Fall with resultant head injury -Neuro checks 09/16 -Neuro checks discontinued -Patient more alert and coherent this morning. -card services specialist consult in the morning of September 1709/17 -physical therapy order today for evaluate and treat for strengthening 2. Elevated lactic acid with apparent fever--exclude sepsis. Chest x-ray is clear and the urine analysis was not suggestive of urosepsis. -2 blood cultures obtained in the emergency department -Patient received Rocephin 2 g in the ED with 1 g every 24 hours written -Recheck CBC in the morning and lactic acid 6 hours following admission. 09/16 -Patient is on day number 2 of Rocephin 09/17 -blood cultures work reported no growth -Her oral intake is adequate so therefore IV fluids discontinued today -day #3 rocephin 3. Anemia I suspect this is delusional -Recheck CBC in the morning 09/17 -hemoglobin stable Clinical Quality Measures Admission Status Admission Dx 1. Fall with resultant head injury 2. Elevated lactic acid with apparent fever DVT/VTE Risk/Contraindication: Risk Factor Score Per Nursin RFS Level Per Nursing on Admit: 4+=Very High AWA NIXON MD Sep 17, 2018 08:24
[2018-09-17] MEDS: NS IV 1000 ML 1,000 ML IV SCH ×2 (08:45→20:59)
[2018-09-17] MEDS: FENOFIBRATE 134 MG (LOFIBRA) CAPSULE PO SCH (08:57)
[2018-09-17] MEDS: cefTRIAXone FOR IV USE 1,000 MG in NS (IVPB) 50 ML IV SCH (08:57)
[2018-09-17] MEDS: HYDROCHLOROTHIAZIDE 25 MG (HCTZ) TAB PO SCH (08:57)
--- NOTE | 2018-09-17 10:15 | Physical Therapy Evaluation ---
PT Evaluation-General Medical Diagnosis Admission Date Sep 15, 2018 at 16:00 Medical Diagnosis: Increase in lactic acid/Fever Onset Date: Sep 15, 2018 Therapy Diagnosis Therapy Diagnosis: General Weakness Height/Weight Height (Feet): 5 Height (Inches): 4.00 Weight (Pounds): 190 Weight (Ounces): 0.0 Precautions Precautions/Isolations: Fall Prevention, Standard Precautions, Pressure Ulcer Weight Bear Status Right Lower Extremity: Right Weight Bearing/Tolerated Left Lower Extremity: Left Full Weight Bearing Referral Physician: Tom Alfred MD Reason for Referral: Evaluation/Treatment Medical History Pertinent Medical History: Arthritis Additional Medical History Patient recently diagnosed with liver cancer without any further treatment. Current History EMS responded to individual falling at home in bathroom in the middle of the night. Social History Home: Single Level Current Living Status: Alone (with good family support) Entry Into Home: Stairs With Railing PT Steps Into Home: 3 PT Steps Inside Home: 0 Prior/Core FIM Prior Level of Function Functional Price Measure 0=Not Assessed/NA 4=Minimal Assistance 1=Total Assistance 5=Supervision or Setup 2=Maximal Assistance 6=Modified Price 3=Moderate Assistance 7=Complete IndependenceIRFPAI Quality Coding Scale 6 Independent with activity with or without an assistive device 5 Patient requires set up or clean up by helper. Patient completes activity by themselves 4 Supervision or touching assist (CGA). [place] provide cues , steadying assist 3 The helper provides less than half the effort to complete the activity 2 The helper provides more than half the effort to complete the activity 1 Dependent. The helper does all the effort to complete an activity 7 Patient refused to complete or attempt activity 9 The patient did not perform the activity before the current illness or injury 88 Not attempted due to Medical conditions or safety concerns Bed Mobility: 6 Transfers (B,C,W/C) (FIM): 6 Gait: 6 Stairs: 6 PT Evaluation-Current Subjective Patient was awake in bed visiting with her daughter. Patient agreed to an evaluation by PT. Pain Numeric Pain Scale: 0-No Pain Location: No Pain Reported Objective Patient Orientation: Person, Confused, Time, Situation Problem Solving: Fair Attachments: IV ROM/Strength ROM Upper Extremities WNL ROM Lower Extremities WNL Strength Upper Extremities WNL Strength Lower Extremities 4/5 bilaterally throughout LEs Integumentary/Posture Bowel Incontinence: No Bladder Incontinence: No Neuromuscular (Tone, Coordination, Reflexes) Tone, Coordination, and Reflexes are WNL Sensory Vision: Wears Glasses Hearing: Functional Sensation Right Upper Extremit: Intact Sensation Left Upper Extremity: Intact Sensation Right Lower Extremit: Intact Sensation Left Lower Extremity: Intact Transfers Functional Price Measure 0=Not Assessed/NA 4=Minimal Assistance 1=Total Assistance 5=Supervision or Setup 2=Maximal Assistance 6=Modified Price 3=Moderate Assistance 7=Complete Price Transfers (B, C, W/C) (FIM): 4 Scootin Rollin Supine to/from Sit: 4 Sit to/from Stand: 4 Gait Mode of Locomotion: Walk Anticipated Mode of Locomotion: Walk Gait (FIM): 2 Distance (FIM): 3=669-38 ft Distance: 100' Gait Level of Assist: 4 Gait Persons Needed: 1 Gait Assistive Device: FWW Comments/Gait Description Patient reported that her knees felt weak when ambulating, however, functional gait sequence. Balance Sitting Static: Normal Sitting Dynamic: Normal Standing Static: Good Standing Dynamic: Fair Assessment/Needs Per patient report, patient does not utilize FWW 100% at home and will "furniture" walk. PT instructed patient and family on safety concerns with this. Pt was able to ambulate for 100' with a FWW with CGA. Patient complained of weakness in knees during ambulation. Pt will benefit from endurance and LE strengthening to improve overall function for ambulation. Rehab Potential: Fair Equipment Needs FWW PT Long-Term Goals Summer Camp Counselor Goals PT Summer Camp Counselor Goals Time Frame: Sep 24, 2018 Transfers (B,C,W/C) (FIM): 5 Gait (FIM): 5 Gait distance (FIM): 3=150 ft Distance: >200' Gait Level of Assist: 5 Gait Assistive Device: FWW PT Plan Problem List Problem List: Activity Tolerance, Functional Strength, Safety, Balance, Gait, Transfer, Bed Mobility Treatment/Plan Treatment Plan: Continue Plan of Care Treatment Plan: Education, Functional Strength, Gait, Safety, Therapeutic Exercise, Transfers Treatment Duration: Sep 24, 2018 Frequency: 6 times per week Estimated Hrs Per Day: .25 hour per day Patient and/or Family Agrees t: Yes Discharge Recommendations Therapy D/C Recommendations: Retirement (TCU/NH) Time/GCodes Time In: 925 Time Out: 945 Total Billed Treatment Time: 20 Total Billed [facility] JANN POWELL PT Sep 17, 2018 10:14
[2018-09-17] MEDS: ACETAMINOPHEN 325 MG TABLET PO PRN ×2 (13:06→20:10)
[2018-09-17 16:00] VITALS: BP 127/61
[2018-09-18 00:45] VITALS: BP 148/68
[2018-09-18] MEDS: NS IV 1000 ML 1,000 ML IV SCH (06:20)
--- NOTE | 2018-09-18 07:30 | Discharge Inst-Skilled Nursing ---
Discharge Inst-Skilled NF Patient Instructions Patient Problems: Patient initially admitted after a fall. She is having difficulty with ambulation and will need further rehabilitation. Consult/Follow Up/Orders Follow Up Appt.: Dr. Nixon after skilled admission. Skilled NF Admit to: [facility] Certification ([facility]) I certify that SNF services are required to be given on an inpatient basis because of the above named patient's need for detention care on a continuing basis for the conditions(s) for which he/she was receiving inpatient hospital services prior to his/her transfer to the SNF. [facility] Facility Order: Nursing Services, Used Car Manager-Evaluate & Treat, Physical Therapy-Evaluate & Treat Discharge Diet: Low Sodium Diet Daily Activity as Tolerated: Yes (With restrictions based upon physical therapy evaluation) New & Resume Previous Orders Awa Nixon Sep 18, 2018 07:29 AWA NIXON MD Sep 18, 2018 07:30
--- NOTE | 2018-09-18 07:36 | Discharge Summary ---
Diagnosis/Chief Complaint Date of Admission Sep 15, 2018 at 16:00 Date of Discharge September 18, 2018 Discharge Date: Sep 18, 2018 Discharge Time: 1400 Admission Diagnosis Admission Diagnosis 1. Fall with head injury 2. Elevated lactic acid level Discharge Diagnosis 1. Fall with head injuryresolved -Etiology of fall uncertain whether slipped on floor or lightheaded 2. Elevated lactic acid levelresolved -Initially felt to be sepsis however blood cultures were noted to be negative 3. Anemia most likely dilutional from IV fluids Reason Hospital Visit 82-year-old female who lives independently in [facility] was found lying on the floor in her bathroom after an apparent fall. Apparently he was unsure how long she had been lying on her bathroom floor. Patient was insistent that she wanted to get to her cell phone and did not press her life alert button. Ultimately she did and EMS arrived and brought her to the hospital. She apparently had struck her head, right elbow, and buttock cheeks. It is unclear whether she had loss of consciousness. She had fall in February of this year as well. She did appear to be somewhat confused but overall still recognized myself as well as her family members today. Discharge Summary Hospital Course Hospital Course Patient was admitted during the day of September 15, 2018 after EMS arrival following her pressing life alert. Apparently she was in her bathroom at home when she took a fall. She attempted to get up herself and eventually to her cell phone to call family. EMS brought patient in to via [facility] [place] emergency department for evaluation. It was apparent she had head trauma as evident by a bruise to the right upper forehead. She was somewhat incoherent also. Patient initially was placed on neuro checks for the first 24 hours and these remained stable. She was also noted on admission to have elevated lactic acid level with the possibility of sepsis. The chest x-ray was noted to be clear and urine analysis on admission was not suggestive of urosepsis. Follow-up lactic acid level had decreased. She had been started on Rocephin and received 2 g intravenously in the emergency department on admission. Subsequently she received 1 g every 24 hours until blood culture results were available. Blood culture results were negative on September 17. director of medical services was consulted regarding her status and for evaluation of skilled facility when she is medically stable. In the morning of September 18, 2018 her IV was hep-locked and her Woo catheter was discontinued. The Woo had been discontinued the day prior but patient was at least ambulating to the bathroom with assistance. Her daughters were kept informed of her progress and agreed with transfer to [facility] for further rehabilitation. Labs Laboratory Tests 09/15/18 15:03: White Blood Count 11.1H, Red Blood Count 4.26L, Red Cell Distribution Width 15.3H, Mean Platelet Volume 11.3H, Neutrophils (%) (Auto) 89H, Lymphocytes (%) ( Auto) 5L, Neutrophils # (Auto) 9.9H, Lymphocytes # (Auto) 0.6L, Carbon Dioxide Level 19L, Anion Gap 17H, Glucose Level 136H, Lactic Acid Level 2.63*H, Calcium Level 11.5H, Corrected Calcium 11.3H, Aspartate Amino Transf (AST/SGOT) 45H, Total Creatine Kinase 330H, Myoglobin 1790.1H 09/15/18 15:14: Urine Specific [place] 1.015L, Urine Protein 2+H, Urine Leukocyte Esterase 1+H, Urine RBC (Auto) 2+H, Urine Crystals PRESENTH, Urine Amorphous Sediment LARGE LATONYA PHOSPHATEH 09/15/18 17:19: Lactic Acid Level 2.02*H 09/16/18 05:04: Red Blood Count 3.43L, Red Cell Distribution Width 15.5H, Mean Platelet Volume 11.0H, Calcium Level 10.3H, Corrected Calcium 10.9H, Aspartate Amino Transf (AST /SGOT) 43H, Hemoglobin 10.7#L, Hematocrit 34L, Platelet Count 122L, Potassium Level 3.1L, Chloride Level 109H, Total Protein 5.5L 09/17/18 06:16: Red Blood Count 3.43L, Hemoglobin 10.6L, Hematocrit 34L, Mean Corpuscular Hemoglobin Concent 31L, Red Cell Distribution Width 15.5H, Platelet Count 102L, Lymphocytes # (Auto) 0.8L, Potassium Level 3.3L, Chloride Level 111H Procedures None. Consultations director of medical services Discharge Physical Examination Allergies: Coded Allergies: No Known Drug Allergies (Unverified , 10/04/13) Vitals & I&Os Vital Signs Date Time Temp Pulse Resp B/P (MAP) Pulse Ox O2 Delivery O2 Flow Rate FiO2 09/18/18 00:45 98.4 61 18 148/68 (94) 94 Room Air 09/15/18 19:33 21 General Appearance: No Acute Distress HEENT: PERRLA, EOMI, Mucous Memb Moist/[place] Respiratory: Clear to Auscultation Cardiovascular: Regular Rate Abdominal: Normal Bowel Sounds, Soft Extremities: No Edema, No Tenderness/Swelling, Other (Her left hip and knee were noted to be without any heat or soft tissue swelling as well.) Skin: No Rashes Discharge Home Medications Reviewed and agree with Discharge Medication list on patient's Discharge Instruction sheet Instructions to Patient/Family Please see electronic discharge instructions given to patient. Clinical Quality Measures DVT/VTE Risk/Contraindication: Risk Factor Score Per Nursin RFS Level Per Nursing on Admit: 4+=Very High AWA NIXON MD Sep 18, 2018 07:36
[2018-09-18 08:00] VITALS: BP 143/80
[2018-09-18] MEDS: HYDROCHLOROTHIAZIDE 25 MG (HCTZ) TAB PO SCH (08:28)
[2018-09-18] MEDS: FENOFIBRATE 134 MG (LOFIBRA) CAPSULE PO SCH (08:28)
[2018-09-18] MEDS: cefTRIAXone FOR IV USE 1,000 MG in NS (IVPB) 50 ML IV SCH (08:29)
[2018-09-18 12:45] VITALS: BP 143/80
== END 2018-09-18 12:45 | DRG 641 ==
LOC: EDUNIT# 14:43 → ER 14:44 → 4TH 16:00
PROVIDERS: ADMIT Family Medicine; ATTEND Family Medicine
DX: E87.2 Acidosis (principal); R50.9 Fever, unspecified; S00.83XA Contusion of other part of head, initial encounter; S50.01XA Contusion of right elbow, initial encounter; R41.0 Disorientation, unspecified; C22.9 Malignant neoplasm of liver, not specified as primary or secondary; D64.89 Other specified anemias; Z66 Do not resuscitate; M19.91 Primary osteoarthritis, unspecified site; M10.9 Gout, unspecified; F41.9 Anxiety disorder, unspecified; F32.9 Major depressive disorder, single episode, unspecified; W19.XXXA Unspecified fall, initial encounter; Y92.002 Bathroom of unspecified non-institutional (private) residence as the place of occurrence of the external cause; Z96.653 Presence of artificial knee joint, bilateral
CPT/HCPCS: 36415; 70450; 71045; 72125; 80048; 80053; 81000; 82550; 83605; 83874; 84484; 85007; 85025; 85027; 87040; 87804; 93005; 94760; 96361; 96365; 96375; 96376

== ENCOUNTER 2019-04-23 17:27 | Emergency (ER) | payer MEDICARE ==
[~2019-04-23] VITALS: Ht 165.1 cm; Wt 77.1 kg
[~2019-04-23 17:27] MED LIST changes: +METR-145 PO; -METR-197 PO
--- NOTE | 2019-04-23 17:39 | ED General ---
General Chief Complaint: Dizziness/Syncope Stated Complaint: PRIETO,DIZZY,CONFUSED Source of Information: Patient Exam Limitations: No Limitations History of Present Illness Date Seen by Provider: Apr 23, 2019 Time Seen by Provider: 17:36 Initial Comments To ER by EMS from home in [place] where she lives by herself with reports of headache dizziness and confusion. The symptoms began this morning upon awakening. The dizziness is not present at rest, comes about with movement. The confusion she states was last night when she got up in the middle of the night to use the restroom. She states that she had to walk around her house for quite some time trying to find the bathroom. At this time she is alert and oriented to person place time and situation caries on appropriate conversation. She does report a global headache. She denies any weakness of one extremity or another no visual changes, no speech changes. Timing/Duration: 1-2 Days Severity: Moderate Associated Systoms: Headaches Allergies and Home Medications Allergies Coded Allergies: No Known Drug Allergies (Unverified , 10/04/13) Home Medications Acetaminophen 325 Mg Tablet, 325 MG PO Q6H PRN for PAIN-MILD, (Reported) Allopurinol 100 Mg Tablet, 100 MG PO DAILY, (Reported) Citalopram Hydrobromide 10 Mg Tablet, 10 MG PO DAILY, (Reported) Fenofibrate,Micronized 134 Mg Capsule, 134 MG PO DAILY, (Reported) Hydrochlorothiazide 25 Mg Tablet, 25 MG PO DAILY, (Reported) Meclizine HCl 25 Mg Tab.chew, 25 MG PO TID PRN for DIZZINESS Prescribed by: JORDI ROLLINS on 04/23/19 1905 Metronidazole 250 Mg Tablet, 250 MG PO BID, (Reported) Saccharomyces Boulardii 250 Mg Capsule, 250 MG PO BID, (Reported) Patient Home Medication List Home Medication List Reviewed: Yes Review of Systems Review of Systems Constitutional: see HPI; No chills, No fever EENTM: see HPI Respiratory: no symptoms reported; No short of breath Cardiovascular: no symptoms reported; No chest pain Genitourinary: no symptoms reported Musculoskeletal: no symptoms reported Skin: no symptoms reported Psychiatric/Neurological: No Symptoms Reported Hematologic/Lymphatic: No Symptoms Reported Past Npfsprz-Hwasyx-Upuxpp Hx Patient Social History 2nd Hand Smoke Exposure: No Recent Foreign Travel: No Contact w/Someone Who Travel: No Recent Hopitalizations: No Immunizations Up To Date Tetanus Booster (TDap): Less than 5yrs Date of Pneumonia Vaccine: Aug 20, 2013 Date of Influenza Vaccine: Sep 07, 2018 Seasonal Allergies Seasonal Allergies: No Past Medical History Surgeries: Yes (henry total knee replacement; rectal fistula) Gallbladder, Hysterectomy, Orthopedic Respiratory: No Currently Using CPAP: No Currently Using BIPAP: No Cardiac: Yes (edema to lower ext) 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 Genitourinary: No Gastrointestinal: Yes C-Diff Musculoskeletal: Yes (ARTHRITIS) Arthritis, Gout Endocrine: No HEENT: Yes Cataract Cancer: Yes (recent diagnosis; 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 Did You Recieve Any Treatments: No Psychosocial: Yes Anxiety, Depression Integumentary: Yes (SHINGLES) Recent Skin Changes Blood Disorders: No Family Medical History Arthritis 19 MOTHER CVA 19 FATHER Cardiovascular disease G8 SISTER FH: colon cancer 19 MOTHER FH: prostate cancer 19 FATHER Irritable bowel syndrome daughter Renal stone 19 FATHER daughter No Pertinent Family Hx Physical Exam Vital Signs Vital Signs - First Documented 04/23/19 17:27 Temp 99.2 Pulse 68 Resp 20 B/P (MAP) 160/80 (106) Pulse Ox 97 O2 Delivery Room Air Capillary Refill : Height, Weight, BMI Height: 5'4.00" Weight: 190lbs. 0.0oz. 86.674048mn; 32.6 BMI Method:Stated General Appearance: No Apparent Distress, WD/WN, Anxious Eyes: Bilateral Eye Normal Inspection, Bilateral Eye PERRL, Bilateral Eye EOMI HEENT: PERRL/EOMI, TMs Normal Neck: Full Range of Motion, Normal Inspection Respiratory: Lungs Clear, Normal Breath Sounds, No Accessory Muscle Use, No Respiratory Distress Cardiovascular: Regular Rate, Rhythm, Normal Peripheral Pulses Gastrointestinal: Normal Bowel Sounds, Non Tender, Soft Extremity: Normal Capillary Refill, Normal Inspection, Normal Range of Motion Neurologic/Psychiatric: Alert, Oriented x3, No Motor/Sensory Deficits, Other (finger to nose test is normal without ataxia, speech is clear and appropriate. There is no facial asymmetry. There is no asymmetry of upper extremity or lower extremity strength. There is no drift of either arm. There is no nystagmus. She denies dizziness at this time.) Skin: Normal Color, Warm/Dry Progress/Results/Core Measures Suspected Sepsis SIRS Temperature: Pulse: Respiratory Rate: Laboratory Tests 04/23/19 17:42: White Blood Count 7.1 Blood Pressure / Mean: Laboratory Tests 04/23/19 17:42: Creatinine 0.79, Platelet Count 158, Total Bilirubin 0.5 Results/Orders Lab Results Laboratory Tests Test 04/23/19 17:42 04/23/19 18:37 Range/Units White Blood Count 7.1 4.3-11.0 10^3/uL Red Blood Count 4.03 L 4.35-5.85 10^6/uL Hemoglobin 13.0 11.5-16.0 G/DL Hematocrit 40 35-52 % Mean Corpuscular Volume 98 80-99 FL Mean Corpuscular Hemoglobin 32 25-34 PG Mean Corpuscular Hemoglobin Concent 33 32-36 G/DL Red Cell Distribution Width 15.0 H 10.0-14.5 % Platelet Count 158 130-400 10^3/uL Mean Platelet Volume 11.0 H 7.4-10.4 FL Neutrophils (%) (Auto) 83 H 42-75 % Lymphocytes (%) (Auto) 12 12-44 % Monocytes (%) (Auto) 5 0-12 % Eosinophils (%) (Auto) 0 0-10 % Basophils (%) (Auto) 0 0-10 % Neutrophils # (Auto) 5.9 1.8-7.8 X 10^3 Lymphocytes # (Auto) 0.9 L 1.0-4.0 X 10^3 Monocytes # (Auto) 0.3 0.0-1.0 X 10^3 Eosinophils # (Auto) 0.0 0.0-0.3 10^3/uL Basophils # (Auto) 0.0 0.0-0.1 10^3/uL Erythrocyte Sedimentation Rate 15 0-30 MM/HR Sodium Level 136 135-145 MMOL/L Potassium Level 3.6 3.6-5.0 MMOL/L Chloride Level 103 98-107 MMOL/L Carbon Dioxide Level 23 21-32 MMOL/L Anion Gap 10 5-14 MMOL/L Blood Urea Nitrogen 11 7-18 MG/DL Creatinine 0.79 0.60-1.30 MG/DL Estimat Glomerular Filtration Rate > 60 BUN/Creatinine Ratio 14 Glucose Level 112 H 70-105 MG/DL Calcium Level 11.1 H 8.5-10.1 MG/DL Corrected Calcium 11.2 H 8.5-10.1 MG/DL Total Bilirubin 0.5 0.1-1.0 MG/DL Aspartate Amino Transf (AST/SGOT) 37 H 5-34 U/L Alanine Aminotransferase (ALT/SGPT) 25 0-55 U/L Alkaline Phosphatase 60 40-136 U/L Total Protein 6.8 6.4-8.2 GM/DL Albumin 3.9 3.2-4.5 GM/DL Urine Color YELLOW Urine Clarity VERY CLOUDY H Urine pH 7 5-9 Urine Specific [place] 1.010 L 1.016-1.022 Urine Protein NEGATIVE NEGATIVE Urine Glucose (UA) NEGATIVE NEGATIVE Urine Ketones NEGATIVE NEGATIVE Urine Nitrite NEGATIVE NEGATIVE Urine Bilirubin NEGATIVE NEGATIVE Urine Urobilinogen NORMAL NORMAL MG/DL Urine Leukocyte Esterase 1+ H NEGATIVE Urine RBC (Auto) NEGATIVE NEGATIVE Urine RBC NONE /HPF Urine WBC 2-5 /HPF Urine Squamous Epithelial Cells 5-10 /HPF Urine Crystals PRESENT H /LPF Urine Amorphous Sediment LARGE LATONYA PHOSPHATE H /LPF Urine Bacteria FEW H /HPF Urine Casts NONE /LPF Urine Mucus NEGATIVE /LPF Urine Culture Indicated YES My Orders Orders - JORDI ROLLINS APRN Ct Head Wo (04/23/19 17:28) Erythrocyte Sedimentation Rate (04/23/19 17:28) Ua Culture If Indicated (04/23/19 17:28) Cbc With Automated Diff (04/23/19 17:28) Comprehensive Metabolic Panel (04/23/19 17:28) Ed Iv/Invasive Line Start (04/23/19 17:28) Ekg Tracing (04/23/19 17:28) Meclizine Tablet (Antivert Tablet) (04/23/19 17:45) Urine Culture (04/23/19 18:37) Acetaminophen Tablet/Caplet (Tylenol T (04/23/19 19:45) Medications Given in ED Current Medications Medications Dose Ordered Sig/Sunita Route Start Time Stop Time Status Last Admin Dose Admin Acetaminophen 650 mg ONCE ONCE PO 04/23/19 19:45 04/23/19 19:46 DC 04/23/19 19:39 650 MG Meclizine HCl 25 mg ONCE ONCE PO 04/23/19 17:45 04/23/19 17:46 DC 04/23/19 17:57 25 MG Vital Signs/I&O 04/23/19 17:27 Temp 99.2 Pulse 68 Resp 20 B/P (MAP) 160/80 (106) Pulse Ox 97 O2 Delivery Room Air Capillary Refill : Departure Communication (Admissions) Family Conversation 1936-patient remains in bed, alert and oriented, at the time of discharge, nurse attempted to discharge the patient and the daughter has arrived from [place] and states that the patient was "card playing" stating "6 goes on the seven, the 7 goes on the eight" in reference to [employer] games which she has historically done when she's had either dehydration or urinary tract infection.. However she on my exam is still alert and oriented, denies dizziness, does report a frontal headache. 1957-spoke with Dr. Nixon, states that he can see her on of this week for follow-up. Agrees that admission would not accomplish anything for observation and she doesn't have any criteria to be admitted inpatient. The Feels that she should be placed in a [facility] but since she still has her mind about her is fairly resentful of that idea. 2008- patient states that her headache is "gone". Family states that it's only better but not actually gone. Daughter appears bit apprehensive about discharge. I discussed with them that Dr. Nixon will follow-up with them in clinic 2 days from now [id number] is at the bedside, however has not arrived yet patient has a blood pressure of 158/80 lying down, 159/83 upon standing. Denies any dizziness upon standing, helped her up to the edge of the bed and she denies any dizziness with movement as she reported on arrival. She states "I feel pretty good". We will discharge to home as I do not have any admission criteria. She is alert and oriented does remain rather anxious. Impression Primary Impression: Vertigo Disposition: 01 HOME, SELF-CARE Condition: Stable Departure-Patient Inst. Decision time for Depature: 19:04 Referrals: AWA NIXON MD (PCP/Family) Primary Care Physician Patient Instructions: Vertigo (a Type of Dizziness) (DC) Add. Discharge Instructions: 1. Take the dizziness medication as directed. Return to ER for any concerns. Follow-up with your doctor later this week for recheck. All discharge instructions reviewed with patient and/or family. Voiced understanding. Scripts Meclizine HCl (Meclizine HCl) 25 Mg Tab.chew 25 MG PO TID PRN for DIZZINESS, #10 TAB Prov: JORDI ROLLINS APRN 04/23/19 Copy Copies To 1: AWA NIXON MD, PETER J APRN Apr 23, 2019 17:39
[2019-04-23] MEDS ORDERED: MECLIZINE 25 MG (ANTIVERT) TAB PO ONE (17:45)
[2019-04-23 17:49] LABS: BASOPHILS % (AUTO) 0 % (0-10); EOSINOPHILS % (AUTO) 0 % (0-10); HEMATOCRIT 40 % (35-52); LYMPHOCYTES # (AUTO) 0.9 X 10^3 (1.0-4.0); LYMPHOCYTES % (AUTO) 12 % (12-44); MEAN CORPUSCULAR HEMOGLOBIN 32 PG (25-34); MEAN CORPUSCULAR HGB CONC 33 G/DL (32-36); MEAN CORPUSCULAR VOLUME 98 FL (80-99); MONOCYTES # (AUTO) 0.3 X 10^3 (0.0-1.0); MONOCYTES % (AUTO) 5 % (0-12); NEUTROPHILS # (AUTO) 5.9 X 10^3 (1.8-7.8); NEUTROPHILS % (AUTO) 83 % (42-75); PLATELET COUNT 158 10^3/uL (130-400); WHITE BLOOD COUNT 7.1 10^3/uL (4.3-11.0)
--- NOTE | 2019-04-23 17:58 | NUR ---
pt unable to urinate at this time.
--- NOTE | 2019-04-23 18:01 | Diagnostic Imaging Report ---
PROCEDURE: CT head without contrast. TECHNIQUE: Multiple contiguous axial images were obtained through the brain without the use of intravenous contrast. Auto Exposure Controls were utilized during the CT exam to meet ALARA standards for radiation dose reduction. INDICATION: Dizziness. COMPARISON: Correlation is made with prior head CT from 09/15/2018. FINDINGS: Ventricles and sulci are consistent with the patient's age. Moderate periventricular hypodensity is noted consistent with senescent change. No sulcal effacement, midline shift, or hemorrhage is detected. Cisterns are patent. Visualized paranasal sinuses are clear. IMPRESSION: Senescent change. No acute intracranial process is detected. Dictated by: Dictated on workstation # [id number]
[2019-04-23 18:07] LABS: ALANINE AMINOTRANSFERASE 25 U/L (0-55); ALBUMIN 3.9 GM/DL (3.2-4.5); ALKALINE PHOSPHATASE 60 U/L (40-136); BILIRUBIN,TOTAL 0.5 MG/DL (0.1-1.0); BUN/CREATININE RATIO 14; CALCIUM 11.1 MG/DL (8.5-10.1); CARBON DIOXIDE 23 MMOL/L (21-32); CHLORIDE 103 MMOL/L (98-107); CREATININE SERUM 0.79 MG/DL (0.60-1.30); GFR ESTIMATED > 60; GLUCOSE 112 MG/DL (70-105); POTASSIUM 3.6 MMOL/L (3.6-5.0); SODIUM 136 MMOL/L (135-145); TOTAL PROTEIN 6.8 GM/DL (6.4-8.2)
[2019-04-23 18:11] LABS: ERYTHROCYTE SEDIMENTATION RATE 15 MM/HR (0-30)
[2019-04-23 18:42] LABS: BILIRUBIN,URINE NEGATIVE (NEGATIVE); CLARITY,URINE VERY CLOUDY; COLOR,URINE YELLOW; GLUCOSE, URINE (UA) NEGATIVE (NEGATIVE); KETONES,URINE NEGATIVE (NEGATIVE); LEUKOCYTE ESTERASE ,URINE 1+ (NEGATIVE); NITRITE,URINE NEGATIVE (NEGATIVE); PH,URINE 7 (5-9); PROTEIN,URINE NEGATIVE (NEGATIVE); UROBILINOGEN,URINE NORMAL (NORMAL)
[2019-04-23 18:50] LABS: AMORPHOUS SEDIMENT,UR LARGE AMOR PHOSPHATE /LPF; BACTERIA,URINE FEW /HPF
[2019-04-23] MEDS ORDERED: MECL-124 PO ×2 (19:05→20:21)
--- NOTE | 2019-04-23 19:42 | NUR ---
pt has no complaints at this time. warm blankets applied.
[2019-04-23] MEDS ORDERED: ACETAMINOPHEN 325 MG TABLET PO ONE (19:45)
[2019-04-23 20:14] VITALS: BP 140/78
--- OUTSIDE RECORDS SUMMARY | 2019-04-24 00:11 | XMS REPORT ---
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 459222014 Problem Need for prophylactic vaccination and inoculation, Influenza V04.81 Active 380917349 Problem Pain in joint, ankle and foot 719.47 Active 465018373 Problem Contact dermatitis and other eczema, due to unspecified cause 692.9 Active 94780402 ALLERGIES No Information ENCOUNTERS Encounter Location Date Diagnosis [facility] [address] [id number] Jul, Encounter for dental examination Z01.20 [facility] [address] [id number] Dec, Encounter for dental examination Z01.20 [facility] [address] [address] 14 Sep, 2016 Seborrheic keratoses L82.1 [facility] [address] [address] Aug, Seborrheic keratoses L82.1 [facility] [address] [address] Jul, Seborrheic keratoses L82.1 [facility] [address] [id number] Jun, Dental examination Z01.20 [facility] [address] [id number] March, Dental examination Z01.20 [facility] [id number] [id number] Feb, Dental examination Z01.20 [facility] [address] [id number] 09 Dec, 2015 Encounter for dental examination Z01.20 [facility] [address] [address] 14 Oct, 2015 Encounter for immunization Z23 [facility] [id number] [place] [id number] Jul, Encounter for immunization Z23 and Influenza vaccine administered V04.81 [facility] [id number] [place] [id number] Jun, Dental examination V72.2 [facility] [id number] [place] [address] Feb, [facility] [id number] [place] [phone] Feb, [facility] [id number] [place] [address] Nov, [facility] [id number] [place] [address] Nov, [facility] [id number] [place] [address] Nov, [facility] [id number] [place] [address] Nov, [facility] [id number] [place] [address] Nov, [facility] [id number] [place] [phone] Nov, [facility] [id number] [place] [address] Nov, [facility] [id number] [place] [phone] Nov, [facility] [id number] [address] Nov, [facility] [id number] [place] [address] Nov, [facility] [id number] [address] Aug, [facility] [id number] [place] [address] Aug, [facility] [id number] [place] [address] Aug, [facility] [id number] [place] [address] Aug, [facility] [id number] [place] [address] Jul, [facility] [id number] [place] [address] Sep, [facility] [id number] [place] [address] Sep, [facility] [id number] [place] [address] March, [facility] [id number] [address] March, [facility] [id number] [address] Sep, IMMUNIZATIONS No Known Immunizations SOCIAL HISTORY Never Assessed REASON FOR VISIT EMR-[facility] PLAN OF CARE VITAL SIGNS MEDICATIONS Medication Instructions Dosage Frequency Start Date End Date Duration Status Bactrim DS 800-160 mg 1 tablet by Oral route 2 times per day for 7 day(s) Nov, Active Fenofibrate by Oral route March, Active Bumetanide by Oral route March, Active Colace 100 mg 1 capsule by Oral route 1 time per day PRN Jul, Active Triamcinolone Acetonide 0.1 % apply a thin layer to the affected area(s) by Topical route 2 times per day March, Active Lisinopril-Hydrochlorothiazide by Oral route March, Active Meloxicam by Oral route March, Active Omeprazole by Oral route March, Active RESULTS No Results PROCEDURES No Known procedures INSTRUCTIONS MEDICATIONS ADMINISTERED No Known Medications MEDICAL (GENERAL) HISTORY Type Description Date Medical History High Blood Pressure Medical History Joint Replacement/both knees Medical History Arthritis Surgical History Knee Replacement Surgical History hysterectomy Surgical History appendectomy Surgical History cholecystectomy Hospitalization History Hospitalization for surgery only
--- OUTSIDE RECORDS SUMMARY | 2019-04-24 00:13 | XMS REPORT | Continuity of Care Document ---
Author Organization Unknown Address Unknown Allergies Active Description Code Type Severity Reaction Onset Reported/Identified Relationship to Patient Clinical Status Yes No Known Drug Allergies [id number] Drug Allergy Unknown N/A 10/04/2013 Medications There is no data. Problems Date Dx Coded Attending Type Code Diagnosis Diagnosed By 06/25/2010 Ot 211.3 06/25/2010 Ot V16.0 06/25/2010 Ot V67.09 04/18/2012 692.9 DERMATITIS CONTACT UNSPECIFIED 04/18/2012 AVA BRYAN DDS 692.9 DERMATITIS CONTACT UNSPECIFIED 04/18/2012 MEZA DO TAMMY K 692.9 DERMATITIS CONTACT UNSPECIFIED 04/18/2012 MEZA DO TAMMY K 692.9 DERMATITIS CONTACT UNSPECIFIED 04/18/2012 RADHA CHOWDHURY APRNA L 692.9 DERMATITIS CONTACT UNSPECIFIED 09/04/2013 MEZA DO TAMMY K V04.81 FLU SHOT 09/04/2013 MEZA DO TAMMY K V04.81 FLU SHOT 09/04/2013 MADBrenton ANDERSON, ARTURO L V04.81 FLU SHOT 10/04/2013 CHEL PAEZ, JULIENNE Lara Ot 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7 ENTEROCOLITIS DUE TO CLOSTRIDIUM DIFFICI 05/09/2017 AWA NIXON MD, Ot C22.9 MALIG NEOPLASM OF LIVER, NOT SPECIFIED A 05/09/2017 AWA NIXON MD Ot 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 05/09/2017 AWA NIXON MD Ot E66.9 OBESITY, UNSPECIFIED 05/09/2017 AWA NIXON MD Ot E86.0 DEHYDRATION 05/09/2017 AWA NIXON MD, Ot M19.91 PRIMARY OSTEOARTHRITIS, UNSPECIFIED SITE 05/09/2017 AWA NIXON MD Ot R63.0 ANOREXIA 05/09/2017 AWA NIXON MD, Ot Z66 DO NOT RESUSCITATE 05/09/2017 AWA NIXON MD, Ot Z68.35 BODY MASS INDEX (BMI) 35.0-35.9, ADULT 02/21/2018 AWA NIXON MD, Ot C22.9 MALIG NEOPLASM OF LIVER, NOT SPECIFIED A 02/21/2018 AWA NIXON MD, Ot E87.6 HYPOKALEMIA 02/21/2018 AWA NIXON MD, Ot F32.9 MAJOR DEPRESSIVE DISORDER, SINGLE EPISOD 02/21/2018 AWA NIXON MD Ot F41.9 ANXIETY DISORDER, UNSPECIFIED 02/21/2018 AWA NIXON MD, Ot M19.91 PRIMARY OSTEOARTHRITIS, UNSPECIFIED SITE 02/21/2018 AWA NIXON MD, Ot M25.521 PAIN IN RIGHT ELBOW 02/21/2018 AWA NIXON MD Ot R41.0 DISORIENTATION, UNSPECIFIED 02/21/2018 AWA NIXON MD, Ot R44.3 HALLUCINATIONS, UNSPECIFIED 02/21/2018 AWA NIXON MD, Ot R60.0 LOCALIZED EDEMA 02/21/2018 AWA NIXON MD Ot S00.03XA CONTUSION OF SCALP, INITIAL ENCOUNTER 02/21/2018 AWA NIXON MD, Ot S00.83XA CONTUSION OF OTHER PART OF HEAD, INITIAL 02/21/2018 AWA NIXON MD Ot S09.93XA UNSPECIFIED INJURY OF FACE, INITIAL ENCO 02/21/2018 AWA NIXON MD, Ot S30.0XXA CONTUSION OF LOWER BACK AND PELVIS, INIT 02/21/2018 AWA NIXON MD, Ot T79.6XXA TRAUMATIC ISCHEMIA OF MUSCLE, INITIAL EN 02/21/2018 AWA NIXON MD Ot W18.30XA FALL ON SAME LEVEL, UNSPECIFIED, INITIAL 02/21/2018 AWA NIXON MD Ot Y92.003 BEDROOM OF [facility] NON-INSTITUT (PRIVATE) R 02/21/2018 AWA NIXON MD, Ot Z66 DO NOT RESUSCITATE 02/21/2018 AWA NIXON MD, Ot Z96.653 PRESENCE OF ARTIFICIAL KNEE JOINT, BILAT 07/23/2018 LIAM PORRAS DO Ot F32.9 MAJOR DEPRESSIVE DISORDER, SINGLE EPISOD 07/23/2018 LIAM PORARS DO Ot F41.9 ANXIETY DISORDER, UNSPECIFIED 07/23/2018 LIAM PORRAS DO Ot M10.9 GOUT, UNSPECIFIED 07/23/2018 LIAM PORRAS DO Ot N39.0 URINARY TRACT INFECTION, SITE NOT SPECIF 07/23/2018 LIAM PORRAS DO Ot R53.1 WEAKNESS 07/23/2018 LIAM PORRAS DO Ot R55 SYNCOPE AND COLLAPSE 07/23/2018 LIAM PORRAS DO Ot Z80.0 FAMILY HISTORY OF MALIGNANT NEOPLASM OF 07/23/2018 LIAM PORRAS DO Ot Z80.42 FAMILY HISTORY OF MALIGNANT NEOPLASM OF 07/23/2018 LIAM PORRAS DO Ot Z82.49 FAMILY HX OF ISCHEM HEART DIS AND OTH DI 07/23/2018 LIAM PORRAS DO Ot Z85.05 PERSONAL HISTORY OF MALIGNANT NEOPLASM O 07/23/2018 LIAM PORRAS DO Ot Z90.710 ACQUIRED ABSENCE OF BOTH CERVIX AND UTER 07/23/2018 LIAM PORRAS DO Ot Z96.653 PRESENCE OF ARTIFICIAL KNEE JOINT, BILAT 07/23/2018 CHEL PAEZ, JULIENNE Lara Ot V72.84 EXAM PRE-OPERATIVE NOS 07/23/2018 JULIENNE MILLIGAN MD Ot V72.84 EXAM PRE-OPERATIVE NOS 07/23/2018 HUSSAIN PAEZ, AWA Bay Ot Z12.31 ENCNTR SCREEN MAMMOGRAM FOR MALIGNANT NE 07/24/2018 LIAM PORRAS DO Ot F32.9 MAJOR DEPRESSIVE DISORDER, SINGLE EPISOD 07/24/2018 LIAM PORRAS DO Ot F41.9 ANXIETY DISORDER, UNSPECIFIED 07/24/2018 LIAM PORRAS DO Ot M10.9 GOUT, UNSPECIFIED 07/24/2018 LIAM PORRAS DO Ot N39.0 URINARY TRACT INFECTION, SITE NOT SPECIF 07/24/2018 CHIQUITA CHANDRA LIAM Mondragon Ot R53.1 WEAKNESS 07/24/2018 CHIQUITA CHANDRA LIAM Mondragon Ot R55 SYNCOPE AND COLLAPSE 07/24/2018 LIAM PORRAS DO Ot Z80.0 FAMILY HISTORY OF MALIGNANT NEOPLASM OF 07/24/2018 LIAM PORRAS DO Ot Z80.42 FAMILY HISTORY OF MALIGNANT NEOPLASM OF 07/24/2018 LIAM PORRAS DO Ot Z82.49 FAMILY HX OF ISCHEM HEART DIS AND OTH DI 07/24/2018 LIAM PORRAS DO Ot Z85.05 PERSONAL HISTORY OF MALIGNANT NEOPLASM O 07/24/2018 LIAM PORRAS DO Ot Z90.710 ACQUIRED ABSENCE OF BOTH CERVIX AND UTER 07/24/2018 LIAM PORRAS DO Ot Z96.653 PRESENCE OF ARTIFICIAL KNEE JOINT, BILAT 09/18/2018 AWA NIXON MD Ot C22.9 MALIG NEOPLASM OF LIVER, NOT SPECIFIED A 09/18/2018 AWA NIXON MD Ot D64.89 OTHER SPECIFIED ANEMIAS 09/18/2018 AWA NIXON MD Ot E87.2 ACIDOSIS 09/18/2018 AWA NIXON MD, Ot F32.9 MAJOR DEPRESSIVE DISORDER, SINGLE EPISOD 09/18/2018 AWA NIXON MD, Ot F41.9 ANXIETY DISORDER, UNSPECIFIED 09/18/2018 AWA NIXON MD, Ot M10.9 GOUT, UNSPECIFIED 09/18/2018 AWA NIXON MD Ot M19.91 PRIMARY OSTEOARTHRITIS, UNSPECIFIED SITE 09/18/2018 AWA NIXON MD Ot R41.0 DISORIENTATION, UNSPECIFIED 09/18/2018 AWA NIXON MD Ot R50.9 FEVER, UNSPECIFIED 09/18/2018 AWA NIXON MD, Ot S00.83XA CONTUSION OF OTHER PART OF HEAD, INITIAL 09/18/2018 AWA NIXON MD, Ot S50.01XA CONTUSION OF RIGHT ELBOW, INITIAL ENCOUN 09/18/2018 AWA NIXON MD, Ot W19.XXXA UNSPECIFIED FALL, INITIAL ENCOUNTER 09/18/2018 AWA NIXON MD, Ot Y92.002 BATHRM OF [facility] NON-INSTITUT RESDNCE SNGL 09/18/2018 AWA NIXON MD, Ot Z66 DO NOT RESUSCITATE 09/18/2018 AWA NIXON MD, Ot Z96.653 PRESENCE OF ARTIFICIAL KNEE JOINT, BILAT Procedures Code Description Performed By Performed On G0008 FLU ADMINISTRATION (MEDICARE ONLY) 09/04/2013 44625 ROUTINE VENIPUNCTURE 12/08/2014 37392 THERAPUTIC INJ SQ/IM 12/08/2014 J0696 ROCEPHIN INJ 1 g 12/08/2014 32866 XRAY FOOT RIGHT 2 VIEWS 12/08/2014 68758 CBC 12/08/2014 37582 CMP 12/08/2014 07899 URIC ACID 12/08/2014 7845771 GFR CALC (RESULT ONLY) 12/08/2014 Results Test [...] Automated erythrocyte mean corpuscular hemoglobin concentration measurement (mass/volume) 31 g/dL 32-36 Automated erythrocyte distribution width ratio 17.2 % 10.0- 14.5 Automated blood platelet count (count/volume) 210 10*3/uL [...] Blood monocytes automated count (number/volume) 0.4 10*3 0.0- 1.0 Automated eosinophil count 0.0 10*3/uL 0.0-0.3 Automated blood basophil count (count/volume) 0.0 10*3/uL 0.0-0.1 Blood lactic acid measurement (moles/volume) - 05/04/17 20:16 Blood lactic acid measurement (moles/volume) 1.56 mmol/L 0.50- 2.00 Blood manual differential performed detection - 05/04/17 20:16 Blood monocytes/100 leukocytes 4 % NRG Manual blood segmented neutrophils/100 leukocytes 76 % NRG Blood band neutrophils/100 leukocytes 10 % NRG Manual blood lymphocytes/100 leukocytes 10 % NRG Manual eosinophils/100 leukocytes in nose 0 % NRG Manual blood basophils/100 leukocytes 0 % NRG Blood erythrocyte morphology finding identification NORMAL [employer] [facility] Comprehensive metabolic panel - 05/04/17 20:16 Serum [...] or plasma urea nitrogen/creatinine mass ratio 15 0- 20 Serum or plasma creatinine measurement with calculation of estimated glomerular filtration rate > NRG Serum or plasma glucose measurement (mass/volume) 138 mg/dL 70-105 Serum or plasma calcium measurement (mass/volume) 9.5 mg/dL 8.5-10.1 Serum or plasma total bilirubin measurement (mass/volume) 0.6 mg/dL 0.1-1.0 Serum or plasma alkaline phosphatase measurement (enzymatic activity/volume) 62 U/L 40-136 Serum or plasma aspartate aminotransferase measurement (enzymatic activity/volume) 17 U/L 5-34 Serum or plasma alanine aminotransferase measurement (enzymatic activity/volume) 9 U/L 0-55 Serum or plasma protein measurement (mass/volume) 5.7 g/dL 6.4-8.2 Serum or plasma albumin measurement (mass/volume) 3.1 g/dL 3.2-4.5 Serum or plasma troponin i.cardiac measurement (mass/volume) - 05/04/17 20:16 Serum or plasma troponin i.cardiac measurement (mass/volume) < ng/mL <0.30 Serum or plasma lithium measurement (moles/volume) [...] gravity of urine by test strip 1.015 1.016-1.022 Urine protein assay by test strip, semi-quantitative [...] sediment leukocyte count by microscopy (number/high power field) [HPF] NRG Bacteria detection in urine sediment [...] HELP) CALLED TO RERE/NURSE AT 0926, 6-/ NRG SPECIAL CONTACT SPECIAL CONTACT PRECAUTIONS NEEDED [...] Automated erythrocyte mean corpuscular hemoglobin concentration measurement (mass/volume) 31 g/dL 32-36 Automated erythrocyte distribution width ratio 17.2 % 10.0- 14.5 Automated blood platelet count (count/volume) 191 10*3/uL [...] Blood monocytes automated count (number/volume) 0.7 10*3 0.0- 1.0 Automated eosinophil count 0.0 10*3/uL 0.0-0.3 Automated [...] or plasma urea nitrogen/creatinine mass ratio 12 0- 20 Serum or plasma creatinine measurement with calculation of estimated glomerular filtration rate 36 NRG Serum or plasma glucose measurement (mass/volume) 110 mg/dL 70-105 Serum or plasma calcium measurement (mass/volume) 9.6 mg/dL 8.5-10.1 Serum or plasma total bilirubin measurement (mass/volume) 0.7 mg/dL 0.1-1.0 Serum or plasma alkaline phosphatase measurement (enzymatic activity/volume) 55 U/L 40-136 Serum or plasma aspartate aminotransferase measurement (enzymatic activity/volume) 22 U/L 5-34 Serum or plasma alanine aminotransferase measurement (enzymatic activity/volume) 9 U/L 0-55 Serum or plasma protein [...] Automated erythrocyte mean corpuscular hemoglobin concentration measurement (mass/volume) 31 g/dL 32-36 Automated erythrocyte distribution width ratio 17.7 % 10.0- 14.5 Automated blood platelet count (count/volume) 205 10*3/uL [...] or plasma urea nitrogen/creatinine mass ratio 16 0- 20 Serum or plasma creatinine measurement with calculation [...] Automated erythrocyte mean corpuscular hemoglobin concentration measurement (mass/volume) 31 g/dL 32-36 Automated erythrocyte distribution width ratio 17.3 % 10.0- 14.5 Automated blood platelet count (count/volume) 194 10*3/uL [...] or plasma urea nitrogen/creatinine mass ratio 18 0- 20 Serum or plasma creatinine measurement with calculation [...] Automated erythrocyte mean corpuscular hemoglobin concentration measurement (mass/volume) 30 g/dL 32-36 Automated erythrocyte distribution width ratio 17.3 % 10.0- 14.5 Automated blood platelet count (count/volume) 156 10*3/uL [...] or plasma urea nitrogen/creatinine mass ratio 12 0- 20 Serum or plasma creatinine measurement with calculation [...] Automated erythrocyte mean corpuscular hemoglobin concentration measurement (mass/volume) 31 g/dL 32-36 Automated erythrocyte distribution width ratio 17.3 % 10.0- 14.5 Automated blood platelet count (count/volume) 155 10*3/uL [...] or plasma urea nitrogen/creatinine mass ratio 10 0- 20 Serum or plasma creatinine measurement with calculation [...] Automated erythrocyte mean corpuscular hemoglobin concentration measurement (mass/volume) 34 g/dL 32-36 Automated erythrocyte distribution width ratio 16.7 % 10.0- 14.5 Automated blood platelet count (count/volume) 152 10*3/uL [...] Blood monocytes automated count (number/volume) 0.6 10*3 0.0- 1.0 Automated eosinophil count 0.0 10*3/uL 0.0-0.3 Automated [...] Serum or plasma aspartate aminotransferase measurement (enzymatic activity/volume) 128 U/L 5-34 Serum or plasma alanine aminotransferase measurement (enzymatic activity/volume) 64 U/L 0-55 Serum or plasma protein [...] plasma creatine kinase measurement (enzymatic activity/volume) - 02/17/18 12:15 Serum or plasma creatine kinase measurement (enzymatic activity/volume) 1416 U/L 29-168 Complete urinalysis with reflex to culture - 02/17/18 17:33 Urine color determination YELLOW NRG Urine clarity determination CLEAR NRG Urine pH measurement by test strip 8 5-9 Specific gravity of urine by test strip 1.010 1.016-1.022 Urine protein assay by test strip, semi-quantitative [...] sediment leukocyte count by microscopy (number/high power field) NONE NRG Bacteria detection in urine sediment [...] Automated erythrocyte mean corpuscular hemoglobin concentration measurement (mass/volume) 33 g/dL 32-36 Automated erythrocyte distribution width ratio 16.7 % 10.0- 14.5 Automated blood platelet count (count/volume) 110 10*3/uL [...] Blood monocytes automated count (number/volume) 0.7 10*3 0.0- 1.0 Automated eosinophil count 0.0 10*3/uL 0.0-0.3 Automated [...] Serum or plasma aspartate aminotransferase measurement (enzymatic activity/volume) 111 U/L 5-34 Serum or plasma alanine aminotransferase measurement (enzymatic activity/volume) 49 U/L 0-55 Serum or plasma protein measurement (mass/volume) 5.1 g/dL 6.4-8.2 Serum or plasma albumin measurement (mass/volume) 2.9 g/dL 3.2-4.5 Serum or plasma creatine kinase measurement (enzymatic activity/volume) - 02/18/18 05:30 Serum or plasma creatine kinase measurement (enzymatic activity/volume) 953 U/L 29-168 Whole blood basic metabolic panel - 02/19/18 [...] plasma creatine kinase measurement (enzymatic activity/volume) - 02/19/18 05:50 Serum or plasma creatine kinase measurement (enzymatic activity/volume) 350 U/L 29-168 Whole blood basic metabolic panel - 02/20/18 [...] plasma creatine kinase measurement (enzymatic activity/volume) - 02/20/18 05:28 Serum or plasma creatine kinase measurement (enzymatic activity/volume) 174 U/L 29168 Ammonia - 02/20/18 05:28 Ammonia 26 umol/L [...] Automated erythrocyte mean corpuscular hemoglobin concentration measurement (mass/volume) 34 g/dL 32-36 Automated erythrocyte distribution width ratio 15.3 % 10.0- 14.5 Automated blood platelet count (count/volume) 155 10*3/uL [...] Blood monocytes automated count (number/volume) 0.5 10*3 0.0- 1.0 Automated eosinophil count 0.1 10*3/uL 0.0-0.3 Automated [...] Serum or plasma aspartate aminotransferase measurement (enzymatic activity/volume) 30 U/L 5-34 Serum or plasma alanine aminotransferase measurement (enzymatic activity/volume) 19 U/L 0-55 Serum or plasma protein measurement (mass/volume) 6.6 g/dL 6.4-8.2 Serum or plasma albumin measurement (mass/volume) 3.8 g/dL 3.2-4.5 CALCIUM CORRECTED 11.9 mg/dL 8.5-10.1 Magnesium - 07/22/18 22:25 Magnesium 2.1 mg/dL 1.8-2.4 Serum or plasma troponin i.cardiac measurement (mass/volume) - 07/22/18 22:25 Serum or plasma troponin i.cardiac measurement (mass/volume) < ng/mL <0.30 Complete urinalysis with reflex to culture - 07/23/18 00:10 Urine color determination YELLOW NRG Urine clarity determination SLIGHTLY CLOUDY NRG Urine pH measurement by test strip 7 5-9 Specific gravity of urine by test strip 1.010 1.016-1.022 Urine protein assay by test strip, semi-quantitative [...] sediment leukocyte count by microscopy (number/high power field) [HPF] NRG Bacteria detection in urine sediment [...] Automated erythrocyte mean corpuscular hemoglobin concentration measurement (mass/volume) 33 g/dL 32-36 Automated erythrocyte distribution width ratio 15.3 % 10.0- 14.5 Automated blood platelet count (count/volume) 152 10*3/uL [...] Blood monocytes automated count (number/volume) 0.6 10*3 0.0- 1.0 Automated eosinophil count 0.0 10*3/uL 0.0-0.3 Automated [...] Serum or plasma aspartate aminotransferase measurement (enzymatic activity/volume) 45 U/L 5-34 Serum or plasma alanine aminotransferase measurement (enzymatic activity/volume) 23 U/L 0-55 Serum or plasma protein measurement (mass/volume) 7.6 g/dL 6.4-8.2 Serum or plasma albumin measurement (mass/volume) 4.2 g/dL 3.2-4.5 CALCIUM CORRECTED 11.3 mg/dL 8.5-10.1 Serum or plasma creatine kinase measurement (enzymatic activity/volume) - 09/15/18 15:03 Serum or plasma creatine kinase measurement (enzymatic activity/volume) 330 U/L 29-168 Blood manual differential performed detection - 09/15/18 15:03 Blood monocytes/100 leukocytes 5 % [facility] Manual blood segmented neutrophils/100 leukocytes 92 % [facility] Manual blood lymphocytes/100 leukocytes 3 % [facility] Blood erythrocyte morphology finding identification NORMAL [facility] Blood lactic acid measurement (moles/volume) - 09/15/18 15:03 Blood lactic acid measurement (moles/volume) 2.63 mmol/L 0.50- 2.00 Serum or plasma troponin i.cardiac measurement (mass/volume) - 09/15/18 15:03 Serum or plasma troponin i.cardiac measurement (mass/volume) < ng/mL <0.30 Influenza virus A and B antigen detection - 09/15/18 15:03 FLU RESULT NEGATIVE FOR INFLUENZA A AND B ANTIGENS BY [facility] Myoglobin, serum - 09/15/18 15:03 Myoglobin, serum 1790.1 ng/mL 10.0-92.0 Bacterial blood culture - 09/15/18 15:03 Bacterial blood culture NG NRG Bacterial blood culture - 09/15/18 15:03 Bacterial blood culture NG NRG Complete urinalysis with reflex to culture - 09/15/18 15:14 Urine color determination YELLOW NRG Urine clarity determination CLEAR NRG Urine pH measurement by test strip 7 5-9 Specific gravity of urine by test strip 1.015 1.016-1.022 Urine protein assay by test strip, semi-quantitative [...] sediment leukocyte count by microscopy (number/high power field) [HPF] NRG Bacteria detection in urine sediment by light microscopy NEGATIVE NRG Crystals detection in urine sediment by light microscopy PRESENT NRG Casts detection in urine sediment by light microscopy NONE NRG Mucus detection in urine sediment by light microscopy NEGATIVE NRG Complete urinalysis with reflex to culture NO NRG Amorphous sediment detection in urine sediment by light microscopy LARGE LATONYA PHOSPHATE NRG Serum or plasma lactate measurement (moles/volume) - 09/15/18 17:19 Serum or plasma lactate measurement (moles/volume) 2.02 mmol/L 0.50-2.00 Complete blood count (CBC) with automated white blood cell (WBC) differential - 09/16/18 05:04 Blood leukocytes automated count (number/volume) 7.0 10*3/uL 4.3-11.0 Blood erythrocytes automated count (number/volume) 3.43 10*6/uL 4.35-5.85 Venous blood hemoglobin measurement (mass/volume) 10.7 g/dL 11.5-16.0 Blood hematocrit (volume fraction) 34 % 35-52 Automated erythrocyte mean corpuscular volume 98 [foz_us] 80-99 Automated erythrocyte mean corpuscular hemoglobin (mass per erythrocyte) 31 pg 25-34 Automated erythrocyte mean corpuscular hemoglobin concentration measurement (mass/volume) 32 g/dL 32-36 Automated erythrocyte distribution width ratio 15.5 % 10.0- 14.5 Automated blood platelet count (count/volume) 122 10*3/uL 130-400 Automated blood platelet mean volume measurement 11.0 [foz_us] 7.4-10.4 Automated blood neutrophils/100 leukocytes 75 % 42-75 Automated blood lymphocytes/100 leukocytes 14 % 12-44 Blood monocytes/100 leukocytes 10 % 0-12 Automated blood eosinophils/100 leukocytes 0 % 0-10 Automated blood basophils/100 leukocytes 0 % 0-10 Blood neutrophils automated count (number/volume) 5.2 10*3 1.8-7.8 Blood lymphocytes automated count (number/volume) 1.0 10*3 1.0-4.0 Blood monocytes automated count (number/volume) 0.7 10*3 0.0- 1.0 Automated eosinophil count 0.0 10*3/uL 0.0-0.3 Automated blood basophil count (count/volume) 0.0 10*3/uL 0.0-0.1 Comprehensive metabolic panel - 09/16/18 05:04 Serum or plasma sodium measurement (moles/volume) 140 mmol/L 135-145 Serum or plasma potassium measurement (moles/volume) 3.1 mmol/L 3.6-5.0 Serum or plasma chloride measurement (moles/volume) 109 mmol/L 98-107 Carbon dioxide 21 mmol/L 21-32 Serum or plasma anion gap determination (moles/volume) 10 mmol/L 5-14 Serum or plasma urea nitrogen measurement (mass/volume) 15 mg/dL 7-18 Serum or plasma creatinine measurement (mass/volume) 0.73 mg/dL 0.60-1.30 Serum or plasma urea nitrogen/creatinine mass ratio 21 NRG Serum or plasma creatinine measurement with calculation of estimated glomerular filtration rate > NRG Serum or plasma glucose measurement (mass/volume) 92 mg/dL 70-105 Serum or plasma calcium measurement (mass/volume) 10.3 mg/dL 8.5-10.1 Serum or plasma total bilirubin measurement (mass/volume) 0.7 mg/dL 0.1-1.0 Serum or plasma alkaline phosphatase measurement (enzymatic activity/volume) 51 U/L 40-136 Serum or plasma aspartate aminotransferase measurement (enzymatic activity/volume) 43 U/L 5-34 Serum or plasma alanine aminotransferase measurement (enzymatic activity/volume) 18 U/L 0-55 Serum or plasma protein measurement (mass/volume) 5.5 g/dL 6.4-8.2 Serum or plasma albumin measurement (mass/volume) 3.2 g/dL 3.2-4.5 CALCIUM CORRECTED 10.9 mg/dL 8.5-10.1 Complete blood count (CBC) with automated white blood cell (WBC) differential - 09/17/18 06:16 Blood leukocytes automated count (number/volume) 4.6 10*3/uL 4.3-11.0 Blood erythrocytes automated count (number/volume) 3.43 10*6/uL 4.35-5.85 Venous blood hemoglobin measurement (mass/volume) 10.6 g/dL 11.5-16.0 Blood hematocrit (volume fraction) 34 % 35-52 Automated erythrocyte mean corpuscular volume 99 [foz_us] 80-99 Automated erythrocyte mean corpuscular hemoglobin (mass per erythrocyte) 31 pg 25-34 Automated erythrocyte mean corpuscular hemoglobin concentration measurement (mass/volume) 31 g/dL 32-36 Automated erythrocyte distribution width ratio 15.5 % 10.0- 14.5 Automated blood platelet count (count/volume) 102 10*3/uL 130-400 Automated blood platelet mean volume measurement 10.3 [foz_us] 7.4-10.4 Automated blood neutrophils/100 leukocytes 70 % 42-75 Automated blood lymphocytes/100 leukocytes 18 % 12-44 Blood monocytes/100 leukocytes 9 % 0-12 Automated blood eosinophils/100 leukocytes 2 % 0-10 Automated blood basophils/100 leukocytes 0 % 0-10 Blood neutrophils automated count (number/volume) 3.2 10*3 1.8-7.8 Blood lymphocytes automated count (number/volume) 0.8 10*3 1.0-4.0 Blood monocytes automated count (number/volume) 0.4 10*3 0.0- 1.0 Automated eosinophil count 0.1 10*3/uL 0.0-0.3 Automated blood basophil count (count/volume) 0.0 10*3/uL 0.0-0.1 Whole blood basic metabolic panel - 09/17/18 06:16 Serum or plasma sodium measurement (moles/volume) 141 mmol/L 135-145 Serum or plasma potassium measurement (moles/volume) 3.3 mmol/L 3.6-5.0 Serum or plasma chloride measurement (moles/volume) 111 mmol/L 98-107 Carbon dioxide 21 mmol/L 21-32 Serum or plasma anion gap determination (moles/volume) 9 mmol/L 5-14 Serum or plasma urea nitrogen measurement (mass/volume) 15 mg/dL 7-18 Serum or plasma creatinine measurement (mass/volume) 0.68 mg/dL 0.60-1.30 Serum or plasma urea nitrogen/creatinine mass ratio 22 NRG Serum or plasma creatinine measurement with calculation of estimated glomerular filtration rate > NRG Serum or plasma glucose measurement (mass/volume) 94 mg/dL 70-105 Serum or plasma calcium measurement (mass/volume) 10.0 mg/dL 8.5-10.1 Complete blood count (CBC) with automated white blood cell (WBC) differential - 04/23/19 17:42 Blood leukocytes automated count (number/volume) 7.1 10*3/uL 4.3-11.0 Blood erythrocytes automated count (number/volume) 4.03 10*6/uL 4.35-5.85 Venous blood hemoglobin measurement (mass/volume) 13.0 g/dL 11.5-16.0 Blood hematocrit (volume fraction) 40 % 35-52 Automated erythrocyte mean corpuscular volume 98 [foz_us] 80-99 Automated erythrocyte mean corpuscular hemoglobin (mass per erythrocyte) 32 pg 25-34 Automated erythrocyte mean corpuscular hemoglobin concentration measurement (mass/volume) 33 g/dL 32-36 Automated erythrocyte distribution width ratio 15.0 % 10.0- 14.5 Automated blood platelet count (count/volume) 158 10*3/uL 130-400 Automated blood platelet mean volume measurement 11.0 [foz_us] 7.4-10.4 Automated blood neutrophils/100 leukocytes 83 % 42-75 Automated blood lymphocytes/100 leukocytes 12 % 12-44 Blood monocytes/100 leukocytes 5 % 0-12 Automated blood eosinophils/100 leukocytes 0 % 0-10 Automated blood basophils/100 leukocytes 0 % 0-10 Blood neutrophils automated count (number/volume) 5.9 10*3 1.8-7.8 Blood lymphocytes automated count (number/volume) 0.9 10*3 1.0-4.0 Blood monocytes automated count (number/volume) 0.3 10*3 0.0- 1.0 Automated eosinophil count 0.0 10*3/uL 0.0-0.3 Automated blood basophil count (count/volume) 0.0 10*3/uL 0.0-0.1 Comprehensive metabolic panel - 04/23/19 17:42 Serum or plasma sodium measurement (moles/volume) 136 mmol/L 135-145 Serum or plasma potassium measurement (moles/volume) 3.6 mmol/L 3.6-5.0 Serum or plasma chloride measurement (moles/volume) 103 mmol/L 98-107 Carbon dioxide 23 mmol/L 21-32 Serum or plasma anion gap determination (moles/volume) 10 mmol/L 5-14 Serum or plasma urea nitrogen measurement (mass/volume) 11 mg/dL 7-18 Serum or plasma creatinine measurement (mass/volume) 0.79 mg/dL 0.60-1.30 Serum or plasma urea nitrogen/creatinine mass ratio 14 NRG Serum or plasma creatinine measurement with calculation of estimated glomerular filtration rate > NRG Serum or plasma glucose measurement (mass/volume) 112 mg/dL 70-105 Serum or plasma calcium measurement (mass/volume) 11.1 mg/dL 8.5-10.1 Serum or plasma total bilirubin measurement (mass/volume) 0.5 mg/dL 0.1-1.0 Serum or plasma alkaline phosphatase measurement (enzymatic activity/volume) 60 U/L 40-136 Serum or plasma aspartate aminotransferase measurement (enzymatic activity/volume) 37 U/L 5-34 Serum or plasma alanine aminotransferase measurement (enzymatic activity/volume) 25 U/L 0-55 Serum or plasma protein measurement (mass/volume) 6.8 g/dL 6.4-8.2 Serum or plasma albumin measurement (mass/volume) 3.9 g/dL 3.2-4.5 CALCIUM CORRECTED 11.2 mg/dL 8.5-10.1 Erythrocyte sedimentation rate by westergren method - 04/23/19 17:42 Erythrocyte sedimentation rate by westergren method 15 mm 0-30 Complete urinalysis with reflex to culture - 04/23/19 18:37 Urine color determination YELLOW NRG Urine clarity determination VERY CLOUDY NRG Urine pH measurement by test strip 7 5-9 Specific gravity of urine by test strip 1.010 1.016-1.022 Urine protein assay by test strip, semi-quantitative [...] sediment leukocyte count by microscopy (number/high power field) [HPF] NRG Bacteria detection in urine sediment [...] Status Pt. Type Provider Facility Loc./Unit Complaint [id number] 12/08/2014 15:10:00 12/08/2014 23:59:59 CLS Outpatient KATLINL ARTURO ANDERSON Brenton [id number] 08/27/2014 12:02:00 08/27/2014 23:59:59 CLS Outpatient TAMMY MEZA DO [id number] 09/04/2013 13:42:00 09/04/2013 23:59:59 CLS Outpatient TAMMY MEZA DO [id number] 07/17/2013 16:19:00 07/17/2013 23:59:59 CLS Outpatient AVA BRYAN DDS [id number] 07/16/2012 16:22:00 07/16/2012 23:59:59 CLS Outpatient [id number] 09/15/2018 16:00:00 09/18/2018 12:45:00 DIS Inpatient AWA NIXON MD [facility] 4TH ELEVATED LACTIC ACID,FEVER [id number] 07/22/2018 22:20:00 07/23/2018 01:06:00 DIS Emergency LIAM PORRAS DO [facility] ER SYNCOPAL EPISODE [id number] 02/17/2018 16:20:00 02/21/2018 15:10:00 DIS Inpatient AWA NIXON MD [facility] 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,FALL SAME LEVEL, CONFUSION [id number] 05/04/2017 22:14:00 05/09/2017 11:23:00 DIS Inpatient AWA NIXON MD [facility] 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 [id number] 11/02/2015 09:46:00 11/02/2015 23:59:59 CLS Outpatient AWA NIXON MD [facility] RAD SCREENING [id number] 02/05/2014 07:31:00 02/05/2014 23:59:59 CLS Outpatient JULIENNE MILLIGAN MD [facility] PREOP FOLLOW UP [id number] 10/04/2013 07:00:00 10/04/2013 11:30:00 DIS Outpatient JULIENNE MILLIGAN MD [facility] HISTORY OF POLYPS [id number] 10/02/2013 09:29:00 10/02/2013 23:59:59 CLS Outpatient JULIENNE MILLIGAN MD [facility] PREOP HISTORY OF POLYPS [id number] 04/23/2019 17:53:00 Document Registration [id number] 11/02/2015 09:45:00 Document Registration [id number] 08/28/2012 09:14:00 Document Registration [id number] 06/25/2010 11:26:00 Document Registration [id number] 06/04/2010 07:53:00 Document Registration [id number] 04/18/2019 16:30:00 04/18/2019 23:59:59 CLS Outpatient [facility]
== END 2019-04-23 20:14 | disposition home or self-care (01) ==
LOC: EDUNIT# 17:27 → ER 17:28
DX: R42 Dizziness and giddiness (principal); M10.9 Gout, unspecified; F41.9 Anxiety disorder, unspecified; F32.9 Major depressive disorder, single episode, unspecified; Z80.0 Family history of malignant neoplasm of digestive organs; Z90.710 Acquired absence of both cervix and uterus; Z96.653 Presence of artificial knee joint, bilateral; Z87.19 Personal history of other diseases of the digestive system; Z82.49 Family history of ischemic heart disease and other diseases of the circulatory system
CPT/HCPCS: 36415; 70450; 80053; 81000; 85025; 85652; 87088; 93005

== ENCOUNTER 2019-10-31 11:14 | Emergency (ER) | payer MEDICARE, MEDICAID ==
[~2019-10-31] VITALS: Ht 162.5 cm; Wt 86.8 kg
[~2019-10-31 11:14] MED LIST changes: +MECL-124 PO
[2019-10-31] MEDS ORDERED: MECLIZINE 25 MG (ANTIVERT) TAB PO PRN (11:30)
[2019-10-31] MEDS ORDERED: KETOROLAC 30 MG/ML VIAL IVP ONE (11:30)
[2019-10-31] MEDS ORDERED: NS IV 500 ML 500 ML IV SCH (11:30)
--- NOTE | 2019-10-31 11:33 | ED General ---
General Chief Complaint: Trauma-Non Activation Stated Complaint: FALL Source of Information: Patient Exam Limitations: No Limitations History of Present Illness Date Seen by Provider: Oct 31, 2019 Time Seen by Provider: 11:28 Initial Comments To ER per EMS with c/o fall. She was found on the floor at home by family. Last seen well was yesterday at 1500. Upon arrival she's playing solShippterire in her mind stating "6 goes on the 7". However she's alert and oriented most of the time and will only occasionally mention the card game. She does c/o headache and dizziness. Timing/Duration: 1-2 Days Severity: Moderate Associated Systoms: Other (vertigo) Allergies and Home Medications Allergies Coded Allergies: No Known Drug Allergies (Unverified , 10/04/13) Home Medications Acetaminophen 325 Mg Tablet, 325 MG PO Q6H PRN for PAIN-MILD, (Reported) Allopurinol 100 Mg Tablet, 100 MG PO DAILY, (Reported) Citalopram Hydrobromide 10 Mg Tablet, 10 MG PO DAILY, (Reported) Fenofibrate,Micronized 134 Mg Capsule, 134 MG PO DAILY, (Reported) Hydrochlorothiazide 25 Mg Tablet, 25 MG PO DAILY, (Reported) Meclizine HCl 25 Mg Tab.chew, 25 MG PO TID PRN for DIZZINESS . Prescribed by: JORDI ROLLINS on 04/23/192020 Metronidazole 250 Mg Tablet, 250 MG PO BID, (Reported) Saccharomyces Boulardii 250 Mg Capsule, 250 MG PO BID, (Reported) Patient Home Medication List Home Medication List Reviewed: Yes Review of Systems Review of Systems Constitutional: see HPI, dizziness EENTM: see HPI Respiratory: no symptoms reported Cardiovascular: no symptoms reported Genitourinary: no symptoms reported Musculoskeletal: no symptoms reported Skin: no symptoms reported Psychiatric/Neurological: Headache Hematologic/Lymphatic: No Symptoms Reported Immunological/Allergic: no symptoms reported Past Peyvjdm-Suxnny-Kemkok Hx Patient Social History 2nd Hand Smoke Exposure: No Recent Hopitalizations: No Immunizations Up To Date Tetanus Booster (TDap): Less than 5yrs Date of Pneumonia Vaccine: Aug 20, 2013 Date of Influenza Vaccine: Sep 07, 2018 Seasonal Allergies Seasonal Allergies: No Past Medical History Surgeries: Yes (henry total knee replacement; rectal fistula) Gallbladder, Hysterectomy, Orthopedic Respiratory: No Currently Using CPAP: No Currently Using BIPAP: No Cardiac: Yes (edema to lower ext) Neurological: No 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 Genitourinary: No Gastrointestinal: Yes C-Diff Musculoskeletal: Yes (ARTHRITIS) Arthritis, Gout Endocrine: No HEENT: Yes Cataract Cancer: Yes (recent diagnosis; 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 Did You Recieve Any Treatments: No Psychosocial: Yes Anxiety, Depression Integumentary: Yes (SHINGLES) Recent Skin Changes Blood Disorders: No Family Medical History Arthritis 19 MOTHER CVA 19 FATHER Cardiovascular disease G8 SISTER FH: colon cancer 19 MOTHER FH: prostate cancer 19 FATHER Irritable bowel syndrome daughter Renal stone 19 FATHER daughter No Pertinent Family Hx Physical Exam Vital Signs Vital Signs - First Documented 10/31/19 11:15 Temp 37.1 Pulse 80 Resp 23 B/P (MAP) 168/84 (112) Pulse Ox 98 O2 Delivery Room Air Capillary Refill : Height, Weight, BMI Height: 5'5.00" Weight: 170lbs. 0.0oz. 77.552208ui; 32.6 BMI Method:Estimated General Appearance: No Apparent Distress, WD/WN, Other (She moves all extremities. She is alert and oriented, knows she just got out of the ambulance, knows its October of 2019 and knows her name. However, occasionally during an otherwise normal conversation she'll begin to mention cards stating at random "the 6 goes on the 7". ) Eyes: Bilateral Eye Normal Inspection, Bilateral Eye PERRL, Bilateral Eye EOMI HEENT: PERRL/EOMI, TMs Normal, Normal ENT Inspection Respiratory: No Accessory Muscle Use, No Respiratory Distress Cardiovascular: Regular Rate, Rhythm, Normal Peripheral Pulses Gastrointestinal: Normal Bowel Sounds, Non Tender, Soft Extremity: Normal Capillary Refill, Normal Inspection Neurologic/Psychiatric: Alert, Oriented x3 Skin: Normal Color, Warm/Dry Progress/Results/Core Measures Suspected Sepsis SIRS Temperature: Pulse: Respiratory Rate: Laboratory Tests 10/31/19 11:15: White Blood Count 9.0 Blood Pressure / Mean: Laboratory Tests 10/31/19 11:15: Creatinine 0.92, Platelet Count 149, Total Bilirubin 0.5 Results/Orders Lab Results Laboratory Tests Test 10/31/19 11:15 10/31/19 11:55 Range/Units White Blood Count 9.0 4.3-11.0 10^3/uL Red Blood Count 4.15 L 4.35-5.85 10^6/uL Hemoglobin 13.3 11.5-16.0 G/DL Hematocrit 42 35-52 % Mean Corpuscular Volume 101 H 80-99 FL Mean Corpuscular Hemoglobin 32 25-34 PG Mean Corpuscular Hemoglobin Concent 32 32-36 G/DL Red Cell Distribution Width 15.1 H 10.0-14.5 % Platelet Count 149 130-400 10^3/uL Mean Platelet Volume 11.6 H 7.4-10.4 FL Neutrophils (%) (Auto) 90 H 42-75 % Lymphocytes (%) (Auto) 6 L 12-44 % Monocytes (%) (Auto) 4 0-12 % Eosinophils (%) (Auto) 0 0-10 % Basophils (%) (Auto) 0 0-10 % Neutrophils # (Auto) 8.0 H 1.8-7.8 X 10^3 Lymphocytes # (Auto) 0.6 L 1.0-4.0 X 10^3 Monocytes # (Auto) 0.4 0.0-1.0 X 10^3 Eosinophils # (Auto) 0.0 0.0-0.3 10^3/uL Basophils # (Auto) 0.0 0.0-0.1 10^3/uL Neutrophils % (Manual) 89 % Lymphocytes % (Manual) 8 % Monocytes % (Manual) 3 % Eosinophils % (Manual) 0 % Basophils % (Manual) 0 % Band Neutrophils 0 % Blood Morphology Comment NORMAL Sodium Level 141 135-145 MMOL/L Potassium Level 3.6 3.6-5.0 MMOL/L Chloride Level 101 98-107 MMOL/L Carbon Dioxide Level 26 21-32 MMOL/L Anion Gap 14 5-14 MMOL/L Blood Urea Nitrogen 12 7-18 MG/DL Creatinine 0.92 0.60-1.30 MG/DL Estimat Glomerular Filtration Rate 58 BUN/Creatinine Ratio 13 Glucose Level 144 H 70-105 MG/DL Calcium Level 11.3 H 8.5-10.1 MG/DL Corrected Calcium 11.1 H 8.5-10.1 MG/DL Total Bilirubin 0.5 0.1-1.0 MG/DL Aspartate Amino Transf (AST/SGOT) 41 H 5-34 U/L Alanine Aminotransferase (ALT/SGPT) 25 0-55 U/L Alkaline Phosphatase 69 40-136 U/L Total Creatine Kinase 54 29-168 U/L Myoglobin 224.5 H 10.0-92.0 NG/ML Total Protein 7.2 6.4-8.2 GM/DL Albumin 4.2 3.2-4.5 GM/DL Urine Color YELLOW Urine Clarity SL CLOUDY Urine pH 7.0 5-9 Urine Specific [place] 1.020 1.016-1.022 Urine Protein TRACE NEGATIVE Urine Glucose (UA) NEGATIVE NEGATIVE Urine Ketones NEGATIVE NEGATIVE Urine Nitrite NEGATIVE NEGATIVE Urine Bilirubin NEGATIVE NEGATIVE Urine Urobilinogen 0.2 < = 1.0 MG/DL Urine Leukocyte Esterase TRACE NEGATIVE Urine RBC (Auto) NEGATIVE NEGATIVE Urine RBC NONE /HPF Urine WBC 0-2 /HPF Urine Squamous Epithelial Cells 10-25 H /HPF Urine Renal Epithelial Cells 2-5 /HPF Urine Crystals NONE /LPF Urine Bacteria FEW H /HPF Urine Casts NONE /LPF Urine Mucus NEGATIVE /LPF Urine Culture Indicated NO My Orders Orders - JORDI ROLLINS FOOT PIECE ASSEMBLER Cbc With Automated Diff (10/31/19 11:25) Comprehensive Metabolic Panel (10/31/19 11:25) Ua Culture If Indicated (10/31/19 11:25) Ct Head/Cervical Spine Wo (10/31/19 11:25) Chest 1 View, Ap/Pa Only (10/31/19 11:25) Pelvis (10/31/19 11:25) Creatine Kinase (10/31/19 11:25) Myoglobin Serum (10/31/19 11:25) Meclizine Tablet (Antivert Tablet) (10/31/19 11:30) Ketorolac Injection (Toradol Injection) (10/31/19 11:30) Ns Iv 500 Ml (Sodium Chloride 0.9%) (10/31/19 11:30) Manual Differential (10/31/19 11:15) Ceftriaxone For Iv Use (Rocephin For I (10/31/19 16:00) Water (Sterile) For Injection (Sterile W (10/31/19 15:57) Urine Culture (10/31/19 16:02) Medications Given in ED Current Medications Medications Dose Ordered Sig/Sunita Route Start Time Stop Time Status Last Admin Dose Admin Ceftriaxone Sodium 1000 mg/ Sterile Water 10 ml @ 200 mls/hr ONCE ONCE IV 10/31/19 16:00 10/31/19 16:02 DC 10/31/19 16:03 200 MLS/HR Ketorolac Tromethamine 15 mg ONCE ONCE IVP 10/31/19 11:30 10/31/19 11:31 DC 10/31/19 11:45 15 MG Meclizine HCl 12.5 mg ONCE PRN PO 10/31/19 11:30 10/31/19 11:49 12.5 MG Vital Signs/I&O 10/31/19 11:15 Temp 37.1 Pulse 80 Resp 23 B/P (MAP) 168/84 (112) Pulse Ox 98 O2 Delivery Room Air Capillary Refill : Departure Communication (Admissions) 1520-she remains alert, aware that this is October 2019 but will occasionally during conversation and reports "7 goes on 8" in reference to her [employer] games. I've spoken with Dr. Nixon on the phone no less than 3 times per family's request, we have no admission criteria for observation or inpatient admission, additionally we have no inpatient beds available as we are on admission diversion., he would like to put her on an oral antibiotic given a few bacteria in the urine until the culture comes back, follow-up with her in the clinic. 1615-due to no bed availability here, patient's low acuity is spoke with Dr. Segundo who also works at [facility], she would agree to accept the patient in transfer to [facility] observation for possible rehabilitation at [facility] since that is where she is from. Family is discussing whether or not they want to do this. 1730-family states that they would prefer to go to [facility]. They state when she has done this in the past she typically gets better in about 24-48 hours but they would like her to the hospital for that duration. Impression Primary Impression: Altered mental state Qualified Codes: R41.0 - Disorientation, unspecified Disposition: 02 XFER SHT-TRM HOSP Condition: Stable Transfer Transfer Reason: Diversion Time Spoke to Accepting Phy: 17:31 Departure-Patient Inst. Referrals: AWA NIXON MD (PCP/Family) Primary Care Physician JORDI ROLLINS APRN Oct 31, 2019 11:33 POS
[2019-10-31 11:38] LABS: BASOPHILS % (AUTO) 0 % (0-10); EOSINOPHILS % (AUTO) 0 % (0-10); HEMATOCRIT 42 % (35-52); HEMOGLOBIN 13.3 G/DL (11.5-16.0); LYMPHOCYTES # (AUTO) 0.6 X 10^3 (1.0-4.0); LYMPHOCYTES % (AUTO) 6 % (12-44); MEAN CORPUSCULAR HEMOGLOBIN 32 PG (25-34); MEAN CORPUSCULAR HGB CONC 32 G/DL (32-36); MEAN CORPUSCULAR VOLUME 101 FL (80-99); MEAN PLATELET VOLUME 11.6 FL (7.4-10.4); MONOCYTES # (AUTO) 0.4 X 10^3 (0.0-1.0); MONOCYTES % (AUTO) 4 % (0-12); NEUTROPHILS % (AUTO) 90 % (42-75); PLATELET COUNT 149 10^3/uL (130-400); RED CELL DISTRIBUTION WIDTH 15.1 % (10.0-14.5)
--- NOTE | 2019-10-31 11:40 | NUR ---
Per pt's med list: "no CPR medications only."
[2019-10-31 11:51] LABS: ALBUMIN 4.2 GM/DL (3.2-4.5); BILIRUBIN,TOTAL 0.5 MG/DL (0.1-1.0); CALCIUM 11.3 MG/DL (8.5-10.1); CREATININE SERUM 0.92 MG/DL (0.60-1.30); POTASSIUM 3.6 MMOL/L (3.6-5.0); TOTAL PROTEIN 7.2 GM/DL (6.4-8.2)
[2019-10-31 12:02] LABS: BAND NEUTROPHILS 0 %; BASOPHILS % (MANUAL) 0 %; EOSINOPHILS % (MANUAL) 0 %; LYMPHOCYTES % (MANUAL) 8 %; MONOCYTES % (MANUAL) 3 %; NEUTROPHILS % (MANUAL) 89 %; RBC MORPH NORMAL
[2019-10-31 12:06] LABS: BILIRUBIN,URINE NEGATIVE (NEGATIVE); CLARITY,URINE SL CLOUDY; COLOR,URINE YELLOW; GLUCOSE, URINE (UA) NEGATIVE (NEGATIVE); KETONES,URINE NEGATIVE (NEGATIVE); LEUKOCYTE ESTERASE ,URINE TRACE (NEGATIVE); NITRITE,URINE NEGATIVE (NEGATIVE); PROTEIN,URINE TRACE (NEGATIVE)
[2019-10-31 12:15] LABS: BACTERIA,URINE FEW /HPF; WBC,URINE 0-2 /HPF
--- NOTE | 2019-10-31 13:09 | Diagnostic Imaging Report ---
INDICATION: Found down. Possible fall. COMPARISON: 09/15/2018. FINDINGS: Single frontal view of the chest demonstrates normal heart size and pulmonary vascularity. The lungs are well aerated and clear. No large pleural effusion or pneumothorax is seen. The visualized osseous structures show no acute abnormalities. IMPRESSION: 1. No acute cardiopulmonary process. Dictated by: Dictated on workstation # [id number]
--- NOTE | 2019-10-31 13:11 | Diagnostic Imaging Report ---
INDICATION: Found down. COMPARISON: None. FINDINGS: A single AP view of the pelvis was performed. There is no radiographic evidence of acute fracture or dislocation. Mild osteoarthritic changes of the bilateral hips are noted. Pubic symphysis is within normal limits. SI joints are symmetric. Proximal femurs are intact, bilaterally. The femoro-acetabular joint spaces appear maintained on this single frontal view. Remainder of the bony pelvis is intact as well. No unexpected radiopaque foreign bodies are seen. Included small bowel loops are nondistended. IMPRESSION: 1. No radiographic evidence of acute fracture or dislocation of the bony pelvis. 2. 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 Dictated by: Dictated on workstation # [id number]
--- NOTE | 2019-10-31 13:50 | Diagnostic Imaging Report ---
CLINICAL INDICATION: Patient is status post fall, fell on floor and does not remember. EXAM: Head CT without IV contrast. Axial CT scan of the cervical spine with sagittal and coronal reformations. Auto Exposure Controls were utilized during the CT exam to meet ALARA standards for radiation dose reduction. COMPARISON: CT scan of the head without contrast dated 04/23/2019. CT scan of the cervical spine without contrast dated 09/15/2018. FINDINGS: Head CT: There is skull streak artifact which obscures portions of the brainstem, posterior fossa, and portions of the brain near the skull. There is no evidence of acute cerebral infarct, intracranial hemorrhage, or gross mass effect. The brain parenchymal volume appears appropriate for patient's age. There are patchy and confluent areas of low-attenuation white matter changes involving both cerebral hemispheres and periventricular regions, likely representing chronic small vessel ischemic disease and leukoaraiosis. There is normal kenney-white matter distinction. There is no significant midline shift or herniation. There is no evidence of hydrocephalus. The basal cisterns are unremarkable. The skull, extracranial soft tissue, and orbits are unremarkable. The paranasal sinuses are unremarkable. Temporal bones show no significant abnormality. Cervical spine: There is no acute cervical spine fracture. There is stable grade 1 anterolisthesis of C4 on C5 and C7 on T1. There are hypertrophic spurs seen throughout the cervical spine and facet arthropathy, which have not significantly changed in the interim. Again seen severe left C5-C6 neural foramen narrowing and moderate left C6-C7 neural foramen narrowing due to uncinate spurs and facet arthropathy. There is no significant bony central canal narrowing. The neck soft tissue structures show no significant abnormality. IMPRESSION: 1: There is no evidence of acute intracranial process. There is no intracranial hemorrhage or skull fracture. 2: There is no acute cervical spine fracture. 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 Dictated by: Dictated on workstation # [id number]
--- NOTE | 2019-10-31 15:13 | NUR ---
CONTROL ROOM HELPER was asked to come to the ED to speak to family members about possible Assisted Living placement directly. Called several Assisted Living places to determine who they would take KAMILLE. Gave the choices and they were not interested due to still having a portion that would be out of pocket. Next they inquired if she met criteria for Observation status, Anton Cuevas GENERAL UTILITY WORKER called Dr. Alfred and he declined to agree to an OBSERVATION admission and will talk to the family about discharge options. At this time it is expected that she will be discharged to home and or the family may utilize [facility] for [place] [facility] [place] with [facility] payor. Daughter who is a nurse reports already having talked to Massiel at [facility].
[2019-10-31] MEDS ORDERED: WATER (STERILE) FOR INJECTION 10 ML ONE (15:57)
[2019-10-31] MEDS ORDERED: cefTRIAXone FOR IV USE 1,000 MG in WATER (STERILE) FOR INJECTION 10 ML IV ONE (16:00)
[2019-10-31 18:15] VITALS: BP 151/75
--- NOTE | 2019-10-31 18:15 | NUR ---
1 L NS infused from EMS
[2019-11-01] MEDS ORDERED: MECL-106 PO (13:23)
== END 2019-10-31 18:15 | disposition short-term general hospital (02) ==
LOC: EDUNIT# 11:14 → ER 11:15
DX: R41.82 Altered mental status, unspecified (principal); F41.9 Anxiety disorder, unspecified; F32.9 Major depressive disorder, single episode, unspecified; M10.9 Gout, unspecified; Z90.710 Acquired absence of both cervix and uterus; Z96.653 Presence of artificial knee joint, bilateral; Z85.05 Personal history of malignant neoplasm of liver; Z82.49 Family history of ischemic heart disease and other diseases of the circulatory system; Z80.0 Family history of malignant neoplasm of digestive organs; Z80.42 Family history of malignant neoplasm of prostate
CPT/HCPCS: 36415; 51701; 70450; 71045; 72125; 72170; 80053; 81000; 82550; 83874; 85007; 85027; 87088; 96374; 96375

== ENCOUNTER 2019-11-01 10:51 | Inpatient (IN) | payer MEDICARE, MEDICAID ==
[~2019-11-01] VITALS: Ht 165.1 cm; Wt 89.4 kg
[2019-11-01] MEDS ORDERED: DOCUSATE SODIUM 100 MG (COLACE) CAP PO PRN (11:30)
[2019-11-01] MEDS ORDERED: diphenhydrAMINE 25 MG TAB (BENADRYL) PO PRN (11:30)
[2019-11-01] MEDS ORDERED: BISACODYL 10 MG SUPP (DULCOLAX) PR PRN (11:30)
[2019-11-01] MEDS ORDERED: ONDANSETRON 4 MG (ZOFRAN) ORAL DISSOLVE TAB PO PRN (11:30)
[2019-11-01] MEDS ORDERED: ALPRAZolam 0.25 MG (XANAX) TAB PO PRN (11:30)
[2019-11-01] MEDS ORDERED: ACETAMINOPHEN 500 MG TAB (TYLENOL) PO PRN (11:30)
[2019-11-01] MEDS ORDERED: LACTULOSE SYRUP 10GM/15ML (ENULOSE) 30ML UDC PO PRN (11:30)
[2019-11-01] MEDS ORDERED: LOPERAMIDE 2 MG (IMODIUM) TABLET PO PRN (11:30)
[2019-11-01] MEDS ORDERED: guaiFENesin/CODEINE (ROBITUSSIN AC) 10ML UDC PO PRN (11:30)
[2019-11-01] MEDS ORDERED: FLEET ENEMA ADULT 1 EA BTL PR PRN (11:30)
[2019-11-01] MEDS ORDERED: CALCIUM CARBONATE 500 MG (TUMS) TAB.CHEW PO PRN (11:30)
[2019-11-01 12:30] VITALS: BP 130/75
--- NOTE | 2019-11-01 12:30 | NUR ---
JESSICA PAYAN admitted to room 230-1, with an admitting diagnosis of DEBILITY, on 11/01/19 from [facility] via [facility]EL[facility], accompanied by FAMILY.JESSICA PAYAN introduced to surroundings, call light, bed controls, phone, TV, temperature control, lights, meal times, smoking policy, visitor policy, side rail policy, bathrooms and showers. Patient Rights given to patient in the handbook.JESSICA PAYAN verbalizes understanding that [facility] is not responsible for the loss or damage to any personal effects or valuables that are kept in the patients posession during their hospitalization. The following Patient Care Plans were discussed with the PT AND FAMILY: Discharge Planning AND SYNCOPE. JESSICA PAYAN verbalizes understanding of Interdisciplinary Patient Education. Patient received Patient Rights Booklet, which includes Privacy Act Statement and Data Collection Information Summary. DENIES PAIN AT THIS TIME. IS ANXIOUS.
[2019-11-01 13:11] VITALS: BP 130/75
[2019-11-01] MEDS ORDERED: MECL-106 PO (13:23)
--- NOTE | 2019-11-01 13:24 | NUR ---
UPDATED MED REC WITH DISCHARGE ORDERS FROM [facility]. IT DOES NOT APPEAR ANY CHANGES WERE MADE AT THAT DISCHARGE. I COMPARED THE EXT MED HX TO THE ORDERS FROM [place]. [facility] REPORTED TO CONTINUE FENOFIBRATE 134MG DAILY HOWEVER ACCORDING TO THE EXT MED HX THE PATIENT FILLED 134MG #90 09-25-19. I UPDATED THE MED REC WITH THE MOST RECENTLY FILLED DOSE. IN ADDITION TO WHAT IS SHOWN ON THE EXT MED HX THEY REPORTED TO CONTINUE FLORASTOR 250MG BID AND MECLIZINE TID (PRN) THESE ARE MOST LIKELY OTC MEDS.
--- NOTE | 2019-11-01 13:28 | Occupational Therapy Eval ---
OT Evaluation-General/PLF Medical Diagnosis Admission Date Nov 01, 2019 at 12:39 Medical Diagnosis: Debility/ weakness; post-fall Onset Date: Oct 31, 2019 Therapy Diagnosis Therapy Diagnosis: Decreased ADL ability Height/Weight Height (Feet): 5 Height (Inches): 5.00 Weight (Pounds): 170 Weight (Ounces): 0.0 Precautions Precautions/Isolations: Fall Prevention, Standard Precautions Weight Bear Status Weight Bearing Restriction: Weight Bearing/Tolerated Referral Physician: Carmen Segundo DO Referral Reason: Activity Tolerance, Self Care, Evaluation/Treatment, Strengthening/ROM Medical History Pertinent Medical History: Arthritis Additional Medical History BTKA, arthritis, see nursing notes. Current History Pt experienced fall on 10/31/19. Reviewed History: Yes Social History Home: Single Level Current Living Status: Alone Pt receives assist 3-4x per week for IADL activities within the home and bathing tasks. Pt states she receives assist with pant and bra donning. Pt receives meals from community 4x per week, eats soup for dinner (denies use of oven). ADL-Prior Level of Function SCALE: Activities may be completed with or without assistive devices. 4-Kxhysnpqcu-zmrcvtd completes the activity by him/herself with no assistance from a helper. 5-Set-up or Clean-up Assistance-helper sets up or cleans up; patient completes activity. [place] assists only prior to or following the activity. 4-Supervision or Touching Assistance-helper provides verbal cues and/or touching/steadying and/or contact guard assistance as patient completes activity. Assistance may be provided throughout the activity or intermittently. 3-Partial/Moderate Assistance-helper does LESS THAN HALF the effort. [place] lifts, holds or supports trunk or limbs, but provides less than half the effort. 2-Substantial/Maximal Assistance-helper does MORE THAN HALF the effort. [place] lifts or holds trunk or limbs and provides more than half the effort. 5-Yocnuehia-ejskgb does ALL the effort. Patient does none of the effort to complete the activity. Or, the assistance of 2 or more helpers is required for the patient to complete the activity. If activity was not attempted, code reason: 7-Patient Refused. 9-Not Applicable-not attempted and the patient did not perform the activity be fore the current illness, exacerbation or injury. 10-Not Attempted due to Environmental Limitations-(lack of equipment, weather restraints, etc.). 88-Not Attempted due to Medical Conditions or Safety Concerns. Self Care: Needed Some Help Functional Cognition: Independent DME/Equipment: Bath Chair, Grab Bars, Shower, Tall Toilet DME/Equipment Comments Pt mobilizes with FWW Occupation: retired Drive Self: No OT Current Status Subjective Pt comes from [facility], seen outside [facility] with family transportation; pt completes car transfer with assist. Pt utilizes FWW to complete SPT to w/c. Pt pushed to ARU floor. Pt denies pain currently, states pain while in stance in posterior L knee. States pain was not present prior to fall yesterday. Pt agreeable to OT eval/ treat. Mental Status/Objective Patient Orientation: Person, Place, Situation Current Glasses/Contacts: Yes Hearing Aids: No Dentures/Partials: No Hand Dominance: Right Upper Extremity ROM WFL BUE Upper Extremity Coordination WFL BUE Upper Extremity Sensation no c/o paresthesias Upper Extremity Strength Impaired: weakness bilaterally ADL-Treatment Eating (QC): 6 (brings cup to mouth and drinks IND.) Oral Hygiene (QC): 4 (Pt completes oral hygiene at sink with SBA-CGA with FWW.) Shower/Bathe Self (QC): 7 (Based on pt report, pt has caregiver/ bath aide support 3-4 days per week. Pt states helper assists in/ out of shower and completes all bathing tasks for pt.) Upper Body Dressing (QC): 7 (Per pt report, pt receives assist with bra donning. pt denies shirt off/ on) Lower Body Dressing (QC): 4 (SBA EOB-standing. Pt doffs in stance, pt dons while in seated. CGA in stance to chain puller hips.) On/Off Footwear (QC): 4 (CGA in stance to complete shoe don/ doffing. Pt states she does not wear socks.) Toileting Hygiene (QC): 9 (Pt states she has bedee which provides hygiene and drying to bottom.) Toilet Transfer (QC): 4 (Pt states she has high-rise toilet at home, states she would be able to complete toilet transfer to [facility]'s standard toilet.Pt completes from FWW to standard stool with CGA, pt utilizes grab bars during sit to stand. Pt denies need for commode for comfort.) Other Treatments Pt's daughter with pt upon admit. Pt's daughter states fall yesterday within the morning, helper found pt on floor. Pt does not recall incident. Daughter states pt experiences orthostatic hypotension- vitals assessed in sittin/77, 98%%, 58 BPM; and in stance: 130/73, 98% and 75 BPM. Pt denies light headedness. OT evaluation [id number]. Pt agreeable to OT evaluation, completes bed mob with SUP, sits EOB to complete ADL activities (dressing, denies bathing), oral hygiene at sink. Pt educated on ARU expectations and OT role. Pt states goals for balance and strength/ endurance for safe transition home. Pt states she completes walking around home for exercise. Pt mobilizes with SBA to group therapy in [facility] for group therapy session. Co-treat: 425-1500: Pt seen for OT/ PT cotreat for increased exercises while in bed post-ARU group session. cotreat rendered due to pt's decreased energy level, safety awareness, and strength. OT focused on UE movements and strength, PT focused on LE movements and strength. Pt completes UE theraband exercises with cues for positioning and tensions. Pt completes back flies, bicep curls, int/ ext shoulder rotation, and shoulder flexion exercises. Pt agrees she is able to complete in bed with increased IND. Pt left in bed with call light in reach, all needs met. Education OT Patient Education: Correct positioning, Modified ADL techniques, Progress toward Goal/Update tx plan, Purpose of tx/functional activities, Rehab process, Safety issues Teaching Recipient: Patient Teaching Methods: Demonstration, Discussion Response to Teaching: Verbalize Understanding, Return Demonstration OT Short Term Goals Short Term Goals Oral hygiene: 6 Lower body dressin Putting on/taking off footwear: 6 OT Senior Living Goals Senior Living Goals Time Frame: Nov 15, 2019 Eating (QC): 6 Oral Hygiene (QC): 6 Toileting Hygiene (QC): 4 Shower/Bathe Self (QC): 4 Upper Body Dressing (QC): 4 Lower Body Dressing (QC): 6 On/Off Footwear (QC): 6 Additional Goals: 1-Demonstrate ADL Tasks, 2-Verbalize Understanding, 3- ImproveStrength/Merry 1=Demonstrate adherence to instructed precautions during ADL tasks. 2=Patient will verbalize/demonstrate understanding of assistive devices/modifications for ADL. 3=Patient will improve strength/tolerance for activity to enable patient to perform ADL's. OT Education/Plan Problem List/Assessment Assessment: Decreased Activ Tolerance, Decreased UE Strength, Impaired Cognition, Impaired Funct Balance, Impaired I ADL's, Impaired Self-Care Skills Discharge Recommendations Plan/Recommendations: Continue POC Therapy Discharge Recommendati: Scheduled Assistance Treatment Plan/Plan of Care Treatment,Training & Education: Yes Patient would benefit from OT for education, treatment and training to promote independence in ADL's, mobility, safety and/or upper extremity function for ADL's. Plan of Care: ADL Retraining, Caregiver Training, Functional Mobility, Group Exercise/Act as Ind, UE Funct Exercise/Act Treatment Duration: Nov 15, 2019 Frequency: At least 5 of 7 days/Wk (IRF) Estimated Hrs Per Day: 1.5 hours per day Agreement: Yes Rehab Potential: Good Time/GCodes Start Time: 12:45 (2nd entry: 4725) Stop Time: 13:00 (2nd exit: 1500) Total Time Billed (hr/min): 15 Billed Treatment Time 1, EVM (15) 1, EX 2 (35) OT/ PT co-treat. TROY STRATTON OTR Nov 01, 2019 13:28 POS
[2019-11-01] MEDS ORDERED: MECLIZINE 25 MG (ANTIVERT) TAB PO PRN (13:45)
--- NOTE | 2019-11-01 14:46 | Physical Therapy Evaluation ---
PT Evaluation-General Medical Diagnosis Admission Date Nov 01, 2019 at 12:39 Medical Diagnosis: Debility/ weakness; post-fall Onset Date: Oct 31, 2019 Therapy Diagnosis Therapy Diagnosis: debility/weakness Height/Weight Height (Feet): 5 Height (Inches): 5.00 Weight (Pounds): 170 Weight (Ounces): 0.0 Precautions Precautions/Isolations: Fall Prevention, Standard Precautions Referral Physician: Carmen Segundo DO Reason for Referral: Evaluation/Treatment Medical History Pertinent Medical History: Arthritis Current [place] [facility]ed History: Yes Social History Home: Single Level Current Living Status: Alone Entry Into Home: Stairs With Railing PT Steps Into Home: 3 Prior Prior Level of Function SCALE: Activities may be completed with or without assistive devices. 3-Xbxfzbqhmi-qqavunb completes the activity by him/herself with no assistance from a helper. 5-Set-up or Clean-up Assistance-helper sets up or cleans up; patient completes activity. [place] assists only prior to or following the activity. 4-Supervision or Touching Assistance-helper provides verbal cues and/or touching/steadying and/or contact guard assistance as patient completes activity. Assistance may be provided throughout the activity or intermittently. 3-Partial/Moderate Assistance-helper does LESS THAN HALF the effort. [place] lifts, holds or supports trunk or limbs, but provides less than half the effort. 2-Substantial/Maximal Assistance-helper does MORE THAN HALF the effort. [place] lifts or holds trunk or limbs and provides more than half the effort. 8-Wjgtffrwb-icmwsp does ALL the effort. Patient does none of the effort to complete the activity. Or, the assistance of 2 or more helpers is required for the patient to complete the activity. If activity was not attempted, code reason: 7-Patient Refused. 9-Not Applicable-not attempted and the patient did not perform the activity before the current illness, exacerbation or injury. 10-Not Attempted due to Environmental Limitations-(lack of equipment, weather restraints, etc.). 88-Not Attempted due to Medical Conditions or Safety Concerns. Bed Mobility: 5 Transfers (B,C,W/C): 5 Gait: 5 Stairs: 5 Indoor Mobility (Ambulation): Independent Stairs: Independent Prior Devices Use: Walker PT Evaluation-Current Subjective Patient agrees to PT. Pain Numeric Pain Scale: 0-No Pain Location: No Pain Reported Objective Patient Orientation: Confused ROM/Strength ROM Lower Extremities bilateral LE WFL Strength Lower Extremities 3/5 grossly bilateral LE Integumentary/Posture Integumentary refer to nursing notes Bowel Incontinence: No Bladder Incontinence: No Posture slight trunk flexed posture Neuromuscular (Tone, Coordination, Reflexes) slightly diminished coordination Sensory Vision: Wears Glasses Hearing: Impaired Hand Dominance: Right Sensation Right Lower Extremit: Impaired Sensation Left Lower Extremity: Impaired Transfers Roll Left to Right (QC): 3 Sit to Lying (QC): 3 Lying to Sitting/Side of Bed(Q: 3 Sit to Stand (QC): 3 Chair/Mrk-qk-Iffcs Xfer(QC): 3 Car Transfer (QC): 3 Gait Does the Patient Walk?: Yes Mode of Locomotion: Walk Anticipated Mode of Locomotion: Walk Walk 10 feet (QC): 3 Walk 50 ft with 2 Turns(QC): 3 Walk 150 ft (QC): 88 Walking 10ft/uneven surface-QC: 3 Distance: 55' Gait Assistive Device: FWW Comments/Gait Description slightly unsteady Wheelchair Training Does the Pt Use a Wheelchair?: No Wheel 50 ft with 2 turns (QC): 9 Wheel 150 ft (QC): 9 Type of Wheelchair: Manual Stairs #of Steps: 1 1 Step (curb) (QC): 3 4 Steps (QC): 88 12 Steps (QC): 9 Walking Assistive Device: Walker Balance Sitting Static: Normal Sitting Dynamic: Normal Standing Static: Fair Standing Dynamic: Fair Picking up an Object (QC): 3 Assessment/Needs 83 y.o. female, will benefit from skilled PT to address functional strength and mobility to improve current LOF to safely return to home or care facility at maximum LOF. Rehab Potential: Fair PT Ornamental Metal Erector Goals Shelter Goals PT Ornamental Metal Erector Goals Time Frame: Nov 30, 2019 Roll Left & Right (QC): 5 Sit to Lying (QC): 5 Lying-Sitting on Side/Bed(QC): 5 Sit to Stand (QC): 5 Chair/Uzw-gj-Djcgm Xfer(QC): 5 Toilet Transfer (QC): 5 Car Transfer (QC): 5 Does the Patient Walk: Yes Walk 10 feet (QC): 5 Walk 50ft with 2 Turns (QC): 5 Walk 150 ft (QC): 5 Walking 10ft on Uneven Surface: 5 1 Step (curb) (QC): 5 4 Steps (QC): 5 12 Steps (QC): 9 Picking up an Object (QC): 5 Does the Pt use WC or Scooter?: No Type: N/A Type: N/A PT Plan Problem List Problem List: Activity Tolerance, Functional Strength, Safety, Balance, Gait, Transfer, Bed Mobility Treatment/Plan Treatment Plan: Continue Plan of Care Treatment Plan: Bed Mobility, Concurrent Therapy, Education, Functional Activity Merry, Functional Strength, Group Therapy, Gait, Safety, Therapeutic Exercise, Transfers Treatment Duration: Nov 30, 2019 Frequency: At least 5 of 7 days/Wk (IRF) Estimated Hrs Per Day: 1.5 hours per day Patient and/or Family Agrees t: Yes Time/GCodes Time In: 1222 Time Out: 1245 Total Billed Treatment Time: 23 Total Billed Treatment 1 visit EVModC 23 min JANN POWELL PT Nov 01, 2019 14:46 POS
--- NOTE | 2019-11-01 15:05 | NUR ---
Initial visit: The pt shared that she gave to 5 children in 10 years, and reflects that this was the most challenging thing she had done and has no regrets. She expresses pride in her kids and satisfaction with having worked until she was 79 years old.
--- NOTE | 2019-11-01 15:11 | Physical Therapy Daily Note ---
PT Daily Note-Current Subjective Pt. agreeable to Rx and shares her family history, career history as well as medical history. Pt. also expresses she has anxiety and initiating her stay here at the hospital is difficult. Pain Location: No Pain Reported Mental Status Patient Orientation: Person, Place, Time, Situation Transfers SCALE: Activities may be completed with or without assistive devices. 7-Pybtlnttio-yhsdjkz completes the activity by him/herself with no assistance from a helper. 5-Set-up or Clean-up Assistance-helper sets up or cleans up; patient completes activity. [place] assists only prior to or following the activity. 4-Supervision or Touching Assistance-helper provides verbal cues and/or touching/steadying and/or contact guard assistance as patient completes activity. Assistance may be provided throughout the activity or intermittently. 3-Partial/Moderate Assistance-helper does LESS THAN HALF the effort. [place] lifts, holds or supports trunk or limbs, but provides less than half the effort. 2-Substantial/Maximal Assistance-helper does MORE THAN HALF the effort. [place] lifts or holds trunk or limbs and provides more than half the effort. 3-Lfdnmznbh-rcfnjp does ALL the effort. Patient does none of the effort to com plete the activity. Or, the assistance of 2 or more helpers is required for the patient to complete the activity. If activity was not attempted, code reason: 7-Patient Refused. 9-Not Applicable-not attempted and the patient did not perform the activity before the current illness, exacerbation or injury. 10-Not Attempted due to Environmental Limitations-(lack of equipment, weather restraints, etc.). 88-Not Attempted due to Medical Conditions or Safety Concerns. Pt. rolled left and right with min to CGA, with HOB lowered to level flat supine pt. c/o dizziness and requested head up again. Pt. did assume hooklying and pu shed self up using rails. Exercises Supine Ex: Bridging, Ankle pumps, Glut sets, Lower trunk rotation, Hip abd/add Supine Reps: 12 Treatments Pt. oriented to phone and calling out, as well as call ramos and use of bed controls, pt. with some difficulty remembering these steps and also inquired about getting up on her own, safety and the need to call for help was reiterated. CoRx for initial Rx after eval as pt expresses dizziness and fatigue Assessment Current Status: Good Progress PT Power Switchboard Operator Goals Fpc Goals PT Fpc Goals Time Frame: Nov 30, 2019 Roll Left & Right (QC): 5 Sit to Lying (QC): 5 Lying-Sitting on Side/Bed(QC): 5 Sit to Stand (QC): 5 Chair/Ief-ha-Hkjpa Xfer(QC): 5 Toilet Transfer (QC): 5 Car Transfer (QC): 5 Does the Patient Walk: Yes Walk 10 feet (QC): 5 Walk 50ft with 2 Turns (QC): 5 Walk 150 ft (QC): 5 Walking 10ft on Uneven Surface: 5 1 Step (curb) (QC): 5 4 Steps (QC): 5 12 Steps (QC): 9 Picking up an Object (QC): 5 Does the Pt use WC or Scooter?: No Type: N/A Type: N/A PT Plan Treatment/Plan Treatment Plan: Continue Plan of Care Treatment Plan: Bed Mobility, Concurrent Therapy, Education, Functional A ctivity Merry, Functional Strength, Group Therapy, Gait, Safety, Therapeutic Exercise, Transfers Treatment Duration: Nov 30, 2019 Frequency: At least 5 of 7 days/Wk (IRF) Estimated Hrs Per Day: 1.5 hours per day Patient and/or Family Agrees t: Yes Safety Risks/Education Patient Education: Transfer Techniques, Correct Positioning, Disease Process, Safety Issues Teaching Recipient: Patient Teaching Methods: Demonstration, Discussion Response to Teaching: Verbalize Understanding, Return Demonstration, Reinforcement Needed Time/GCodes Time In: 1425 Time Out: 1500 Total Billed Treatment Time: 35 Total Billed Treatment 1,FA20m,EX15m co Rx with KATRINA LANGE HOT PRESS OPERATOR Nov 01, 2019 15:11 POS
[2019-11-01] MEDS: ENOXAPARIN 40 MG/0.4 ML (LOVENOX) SYR SC SCH (15:18)
--- NOTE | 2019-11-01 15:23 | Therapy Group Daily Note ---
Therapy Daily Group Note Patient Education Topic Other List Below (understanding pain and how to manage it) Exercises LE Seated Exercise, UE Exercise Session Ratio (pt:therapist): 4:1 Goal of Session: Education on ARU Expectations, Other (list) (better understanding of pain and management of it via exercise etc.) Goal Met for this Session: Yes Pt Benefit of Group: F/U Use of Strategies @Home, Socialization Other/Notes Pt. participated in group OT PT session this date. Pt. was escorted with use of AD . Pt. introduced self and contributed to discussion edwin about how she manages pain and discomfort at home. Education encompassed explanation of acute and chronic pain as well as the brain and its function with regards to pain. Management techniques ie, heat, cold, massage, vibration, trigger point release and exercise were discussed and demonstrated. Pts all participated in seated U&L extremity exercises as well, Pt. to room to bed after with further therapies to follow. Start Time: 13:00 Stop Time: 14:15 Total Billed Treatment Time: 75 Total Billed Treatment 1,GRP KATRINA CHEATHAM CHEMICAL LABORATORY SCIENTIST Nov 01, 2019 15:23 POS
--- NOTE | 2019-11-01 15:30 | ST Cognitive Linguistic Eval ---
Speech Evaluation-General Medical Diagnosis Debility/ weakness; post-fall Onset Date: Oct 31, 2019 Therapy Diagnosis Therapy Diagnosis: Cognitive-communication Referral Referring Physician: Dr. Segundo Medical History Pertinent Medical History: Arthritis Reviewed History: Yes Social History Current Living Status: Alone Speech PLF-Current Status Prior Level of Function Patient lived alone where she was independent for her daily needs. Subjective Patient was cooperative with the cognitive assessment. Language Eval: Auditory Comprehends Simple Yes/No Ques: Functional Indent/Objects Multiple [place]: Functional Ident/Pics in Multiple [place]: Functional Follows 1-Step Commands: Functional Follows Complex Directions: Functional Follows General Conversations: Functional Language Eval: Verbal Language Completes Spontaneous Greeting: Functional Produces Auto, Serial Info: Functional Imitates Simple Words/Phrases: Functional Word Finding: Functional Requests Basic Needs: Functional States Basic Personal Info: Functional Expresses Complex Ideas: Functional Objective Cognitive Domain Attention: WNL Memory: Mild Problem Solving: Functional Executive Functions: WNL Visuospatial Skills: WNL Composite Severity Rating: WNL Clock Drawing Severity Rating: Mild Objective Formal/Standardized Tests [facility] ([facility]) Results 27/30, within normal range of function Oral Motor/Speech Production Within Normal Limits Impression The patient is a pleasant 83 year old female who was admitted to the ARU due to debility. The patient was given the UMS at bedside with a score of 27/30 obtained. This score is within the normal range of function. Patient was noted to have difficulty with staying on task, however she was able to complete the tasks ask of her. The patient does not qualify for skilled ST at this time. Speech Patient Assess Expression of Ideas/Wants: Expression (4) Understanding Verbal Content: Understands (4) Brief Interview-Mental Status: Yes Repetition of Three Words: Three (3) Temporal Orientation: Year: Correct (3) Temporal Orientation: Month: Accurate within 5 days(2) Temporal Orientation: Day: Correct (1) Recall : Wear to say "Sock": Yes, no cue required (2) Recall : Color: Yes, after cueing (1) Recall : Bed: Yes, no cue required (2) Memory/Recall Ability: Current season, That he or she is in a hsp/hsp unit Speech-Plan Patient/Family Goals Patient/Family Goals: Patient plans on returning home post rehab. Discharge location will be determined in accordance with her progress and needs at that time. Treatment Plan Speech Therapy Treatment Plan: Discontinue ST Patient will not be receiving further ST services. Treatment Duration: Nov 01, 2019 Frequency: 1 time per week Estimated Hrs Per Day: .25 hour per day Rehab Potential: Fair Barriers to Learning: None identified Pt/Family Agrees to Plan: Yes Safety Risks/Education Teaching Recipient: Patient Teaching Methods: Discussion Response to Teaching: Verbalize Understanding Education Topics Provided: Safety within her room and utilization of her call light as needed. Time Speech Therapy Time In: 15:00 Speech Therapy Time Out: 15:15 Total Billed Time: 15 Billed Treatment Time 1, SPSNDCOMP TRACI Robles Nov 01, 2019 15:30 POS
--- NOTE | 2019-11-01 16:00 | NUR ---
EKG AND ECHO HAVE BEEN DONE. GRETCHEN WEINBERG AND RUDY WRAPS ON LEGS. NO TELEMETRY UNITS AVAILABLE AT THIS TIME.
--- NOTE | 2019-11-01 16:07 | Consultation-Cardiology ---
HPI-Cardiology Cardiology Consultation: Date of Consultation 11/01/19 Time Seen by a Provider: 15:40 Date of Admission 11-01-19 Attending Physician Carmen Segundo DO Admitting Physician Tom Alfred MD Consulting Physician Cara Rodrigues MD HPI: Chief Complaint: Syncope Ms. Sun is an 83 year old female admitted to IRU 230 from [facility]. She lives at home alone with a resident care manager rn who comes in daily. She states she does not recall any events leading up to being found on the bedroom floor at her house by her resident care manager rn this morning. She states she has had several episodes in the past of passing out, but does not recall any of the events leading up to or following the episodes. She denies any c/o CP, palpitations, SOB or LE swelling. She states she takes medication for high blood pressure and a fluid pill at home. She denies any n/v/d. She denies any fever or chills. Review of Systems-Cardiology Review of Systems Constitutional: No chills, No fever Eyes: No vision change Ears/Nose/Throat: No epistaxis, No recent hearing loss Respiratory: As described under HPI Cardiovascular: As described under HPI Gastrointestinal: No constipation, No diarrhea, No nausea, No vomiting Genitourinary: No dysuria, No hematuria Musculoskeletal: no symptoms reported Skin: No rash on exposed areas, No ulcerations on exposed areas Psychiatric/Neurological: syncope; No anxiety, No depression Hematologic: No bleeding abnormalities TPM-Mfiqkh-Uyygpl Hx Patient Social History 2nd Hand Smoke Exposure: No Recent Foreign Travel: No Recent Infectious Disease Expo: No Immunizations Up To Date Tetanus Booster (TDap): Less than 5yrs Date of Pneumonia Vaccine: Aug 20, 2013 Date of Influenza Vaccine: Oct 26, 2019 Past Medical History PMH As described under Assessment. Family Medical History Family Medical History: She reports her father had a CVA. Family History: Arthritis 19 MOTHER CVA 19 FATHER Cardiovascular disease G8 SISTER FH: colon cancer 19 MOTHER FH: prostate cancer 19 FATHER Irritable bowel syndrome daughter Renal stone 19 FATHER daughter Allergies and Home Medications Allergies Coded Allergies: No Known Drug Allergies (Unverified , 10/04/13) Home Medications Allopurinol 100 Mg Tablet, 100 MG PO DAILY, (Reported) Citalopram Hydrobromide 10 Mg Tablet, 10 MG PO DAILY, (Reported) Fenofibrate,Micronized 134 Mg Capsule, 134 MG PO DAILY, (Reported) Hydrochlorothiazide 25 Mg Tablet, 25 MG PO DAILY, (Reported) Meclizine HCl 25 Mg Tablet, 25 MG PO TID PRN for DIZZINESS, (Reported) Metronidazole 250 Mg Tablet, 250 MG PO BID, (Reported) Saccharomyces Boulardii 250 Mg Capsule, 250 MG PO BID, (Reported) Patient Home Medication List Home Medication List Reviewed: Yes Physical Exam-Cardiology Physical Exam Vital Signs/I&O 11/05/19 11/05/19 11/05/19 11/05/19 06:00 06:42 08:10 12:42 Temp 37.2 Pulse 51 49 63 Resp 16 B/P (MAP) 149/72 (97) Pulse Ox 95 O2 Delivery Room Air Room Air 11/05/19 00:00 Intake Total 750 ml Balance 750 ml Capillary Refill : Constitutional: AAO x 3, well-developed, well-nourished HEENT: PERRL, hearing is well preserved Neck: No carotid bruit; carotid pulses are 2 + bilaterally Respiratory: No accessory muscle use, No respiratory distress; chest expansion is symmetric, chest is bilaterally symmetric, lungs clear to auscultation Cardiovascular: regular rate-rhythm; No JVD; S1 and S2 Gastrointestinal: No tender; soft, round, audible bowel sounds Extremities: no lower extremity edema bilateral Neurologic/Psychiatric: grossly intact Skin: No rash on exposed areas, No ulcerations on exposed areas Data Review Labs Laboratory Tests 11/05/19 05:30: Sodium Level 142, Potassium Level 3.9, Chloride Level 110H, Carbon Dioxide Level 22, Anion Gap 10, Blood Urea Nitrogen 20H, Creatinine 0.89, Estimat Glomerular Filtration Rate 60, BUN/Creatinine Ratio 22, Glucose Level 88, Calcium Level 10.3H, Magnesium Level 1.8 ECG Impression ECG Initial ECG Rhythm: Normal Sinus A/P-Cardiology Assessment/Admission Diagnosis Syncopal episodes of undetermined etiology - possibly r/t orthostatic hypotension HTN Poor historian Discussion and Recomendations Syncopal episodes of unclear etiology - possibly r/t orthostatic hypotension - compression hose in place Advise tele to eval for judson-arrhythmia Monitor lab Stop diuretic d/t propensity for volume depletion Further recs will be based on her hospital course We would like to thank medical services for this consult REYNALDO SPENCE Nov 01, 2019 16:07 POS
[2019-11-01 18:01] VITALS: BP 135/73
--- NOTE | 2019-11-01 19:16 | Consultation-Cardiology ---
HPI-Cardiology Cardiology Consultation: Date of Consultation 11/01/19 Time Seen by a Provider: 18:40 Date of Admission Attending Physician Carmen Segundo DO Admitting Physician Tom Alfred MD Consulting Physician BARBARA PERRY MD, MA, FACP, FACC, [facility], CCDS HPI: Chief Complaint: CC: Syncope HPI Ms. Sun is an 83 year old female admitted to IRU 230 from [facility]. She lives at home alone with a care transport nurse who comes in daily. She states she does not recall any events leading up to being found on the bedroom floor at her house by her care transport nurse this morning. She states she has had several episodes in the past of passing out, but does not recall any of the events leading up to or following the episodes. She denies any c/o CP, palpitations, SOB or LE swelling. She states she takes medication for high blood pressure and a fluid pill at home. She denies any n/v/d. She denies any fever or chills. Review of Systems-Cardiology Review of Systems Constitutional: No chills, No fever Eyes: No vision change Ears/Nose/Throat: No epistaxis, No recent hearing loss Respiratory: As described under HPI Cardiovascular: As described under HPI Gastrointestinal: No constipation, No diarrhea, No nausea, No vomiting Genitourinary: No dysuria, No hematuria Musculoskeletal: no symptoms reported Skin: No rash on exposed areas, No ulcerations on exposed areas Psychiatric/Neurological: syncope; No anxiety, No depression Hematologic: No bleeding abnormalities YDC-Ebvmwe-Hyilia Hx Patient Social History Alcohol Use: Denies Use Recreational Drug Use: No Smoking Status: Never a Smoker 2nd Hand Smoke Exposure: No Recent Foreign Travel: No Recent Infectious Disease Expo: No Hospitalization with Isolation: Contact Physical Abuse Screen: No Sexual Abuse: No Immunizations Up To Date Tetanus Booster (TDap): Less than 5yrs Date of Pneumonia Vaccine: Aug 20, 2013 Date of Influenza Vaccine: Oct 26, 2019 Past Medical History PMH As described under Assessment. Family Medical History Family Medical History: She reports her father had a CVA. Family History: Arthritis 19 MOTHER CVA 19 FATHER Cardiovascular disease G8 SISTER FH: colon cancer 19 MOTHER FH: prostate cancer 19 FATHER Irritable bowel syndrome daughter Renal stone 19 FATHER daughter Allergies and Home Medications Allergies Coded Allergies: No Known Drug Allergies (Unverified , 10/04/13) Home Medications Allopurinol 100 Mg Tablet, 100 MG PO DAILY, (Reported) Citalopram Hydrobromide 10 Mg Tablet, 10 MG PO DAILY, (Reported) Fenofibrate,Micronized 134 Mg Capsule, 134 MG PO DAILY, (Reported) Hydrochlorothiazide 25 Mg Tablet, 25 MG PO DAILY, (Reported) Meclizine HCl 25 Mg Tablet, 25 MG PO TID PRN for DIZZINESS, (Reported) Metronidazole 250 Mg Tablet, 250 MG PO BID, (Reported) Saccharomyces Boulardii 250 Mg Capsule, 250 MG PO BID, (Reported) Patient Home Medication List Home Medication List Reviewed: Yes Physical Exam-Cardiology Physical Exam Vital Signs/I&O 11/01/19 11/01/19 13:11 18:01 Temp 36.4 37.4 Pulse 72 56 Resp 18 18 B/P (MAP) 130/75 135/73 (93) Pulse Ox 95 97 O2 Delivery Room Air Room Air Capillary Refill : Constitutional: AAO x 3, well-developed, well-nourished HEENT: PERRL; No hearing is well preserved Neck: No carotid bruit; carotid pulses are 2 + bilaterally Respiratory: No accessory muscle use, No respiratory distress; chest expansion is symmetric, chest is bilaterally symmetric, lungs clear to auscultation Cardiovascular: regular rate-rhythm; No JVD; S1 and S2 Gastrointestinal: No tender; soft, round, audible bowel sounds Extremities: no lower extremity edema bilateral Neurologic/Psychiatric: grossly intact Skin: No rash on exposed areas, No ulcerations on exposed areas A/P-Cardiology Assessment/Admission Diagnosis Syncopal episodes of undetermined etiology - possibly r/t orthostatic hypotension HTN Poor historian Harness of hearing Discussion and Recomendations * Tele to eval for judson-arrhythmia * Monitor lab * Echo * Stop diuretic to prevent volume depletion * Further recs will be based on her hospital course * I spoke with her and her family and answered CV-related questions * We would like to thank Medical Services for this consult Clinical Quality Measures DVT/VTE Risk/Contraindication: Risk Factor Score Per Nursin RFS Level Per Nursing on Admit: 4+=Very High BARBARA PERRY MD [facility] Nov 01, 2019 19:16 POS
[2019-11-01] MEDS ORDERED: SACCHAROMYCES BOULARDII 250 MG PO SCH (21:00)
[2019-11-01] MEDS: DOCUSATE SODIUM 100 MG (COLACE) CAP PO SCH (21:12)
[2019-11-01] MEDS: metroNIDAZOLE 250 MG (FLAGYL) TAB PO SCH (21:12)
[2019-11-01] MEDS: LACTOBACILLUS ACIDOPHILUS (PROBIOTIC) CAPSULE PO SCH (21:12)
[2019-11-01] MEDS: POLYETHYLENE GLYCOL 17 GM (MIRALAX) PACK PO SCH (21:12)
[2019-11-01] MEDS: SENNA W/DOCUSATE (SENOKOT S) TABLET PO SCH (21:13)
[2019-11-02 06:10] VITALS: BP 156/76
[2019-11-02 06:35] LABS: BASOPHILS % (AUTO) 0 % (0-10); EOSINOPHILS # (AUTO) 0.1 10^3/uL (0.0-0.3); EOSINOPHILS % (AUTO) 2 % (0-10); HEMATOCRIT 37 % (35-52); LYMPHOCYTES # (AUTO) 0.8 X 10^3 (1.0-4.0); LYMPHOCYTES % (AUTO) 18 % (12-44); MEAN CORPUSCULAR HEMOGLOBIN 32 PG (25-34); MEAN CORPUSCULAR HGB CONC 32 G/DL (32-36); MEAN CORPUSCULAR VOLUME 101 FL (80-99); MEAN PLATELET VOLUME 11.5 FL (7.4-10.4); MONOCYTES # (AUTO) 0.6 X 10^3 (0.0-1.0); MONOCYTES % (AUTO) 12 % (0-12); NEUTROPHILS # (AUTO) 3.2 X 10^3 (1.8-7.8); NEUTROPHILS % (AUTO) 68 % (42-75); PLATELET COUNT 112 10^3/uL (130-400); WHITE BLOOD COUNT 4.8 10^3/uL (4.3-11.0)
[2019-11-02 06:49] LABS: ALANINE AMINOTRANSFERASE 20 U/L (0-55); ALBUMIN 3.6 GM/DL (3.2-4.5); ALKALINE PHOSPHATASE 55 U/L (40-136); BILIRUBIN,TOTAL 0.5 MG/DL (0.1-1.0); BUN/CREATININE RATIO 16; CALCIUM 10.7 MG/DL (8.5-10.1); CARBON DIOXIDE 23 MMOL/L (21-32); CHLORIDE 107 MMOL/L (98-107); CREATININE SERUM 0.76 MG/DL (0.60-1.30); GFR ESTIMATED > 60; GLUCOSE 98 MG/DL (70-105); POTASSIUM 3.1 MMOL/L (3.6-5.0); SODIUM 141 MMOL/L (135-145)
--- NOTE | 2019-11-02 07:08 | PM&R Post Admission Assessment ---
PM&R HP Date of Visit: Nov 01, 2019 Time of Visit: 13:00 History of Present Illness Chief complaint: Recurrent syncope with multiple falls History of present illness: This is an 83-year-old white female clinic patient of Dr. Alfred who presents to the inpatient rehab after transferred from my service to [facility] after placed in observation following a syncopal episode and a fall being found down at home. She has had multiple falls in the past the last 1 year even causing head injury requiring observation stay last year who has now been confirmed to have orthostasis when I had nursing service check orthostatic blood pressures at [facility]. We will focus on placement of GRETCHEN hose and wide Edgar wraps in order to treat with compression and may need Florinef and midodrine in order to fully treat this condition. She has help for 18 hours a week who comes to the home so she will return home and likely require a little more time to help her. I have consulted Dr. Rodrigues and ordered an echocardiogram and will have a cardiac work-up since she is never had her heart evaluated before for these episodes. We will place her on telemetry to monitor for any arrhythmia as the source of these issues. She did receive 1 dose of IV Rocephin in the ER for bacteriuria but there was no white cells and no evidence of UTI as the cause of this issue. Her prior level of functioning was ambulation at home with a walker. 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[employer]) Alcohol Use: Denies Use Recreational Drug Use: No Smoking Status: Never a Smoker 2nd Hand Smoke Exposure: No Physical Abuse Screen: No Sexual Abuse: No Recent Foreign Travel: No Contact w/other who traveled: No Recent Hopitalizations: No (CONNEAUT FOR SYNCOPAL EPISODE) Recent Infectious Disease Expo: No Immunizations Up To Date Tetanus Booster (TDap): Less than 5yrs Pediatric: No Date of Pneumonia Vaccine: Aug 20, 2013 Date of Influenza Vaccine: Oct 26, 2019 Seasonal Allergies Seasonal Allergies: No Past Medical History Surgeries: Gallbladder, Hysterectomy, Orthopedic Currently Using CPAP: No Currently Using BIPAP: No Cardiac: Hypertension Hysterectomy Gastrointestinal: C-Diff Musculoskeletal: Arthritis, Gout HEENT: Cataract Hearing Impairment: Hard of Hearing Cancer: Liver Did You Recieve Any Treatments: No Psychosocial: Anxiety, Depression Skin/Integumentary: Recent Skin Changes History of Blood Disorders: No Family History Arthritis 19 MOTHER CVA 19 FATHER Cardiovascular disease G8 SISTER FH: colon cancer 19 MOTHER FH: prostate cancer 19 FATHER Irritable bowel syndrome daughter Renal stone 19 FATHER daughter No Pertinent Family Hx Prior Level of Function Bed Mobility: 5 Transfers: 5 Gait: 5 Stairs: 5 Indoor Mobility (Ambulation): Independent Stairs: Independent Prior Devices Use: Walker Self Care: Needed Some Help Functional Cognition: Independent Occupation: retired Drive Self: No Current Level of Fuctioning Roll Left to Right: 3 Sit to Lyin Lying to Sitting/Side of Bed: 3 Sit to Stand: 3 Chair/Ahw-wo-Xqqas Xfer: 3 Car Transfer: 3 Does the Patient Walk: Yes Mode of Locomotion: Walk Anticipated Mode of Locomotion: Walk Walk 10 feet: 3 Walk 50 ft with 2 Turns: 3 Walk 150 ft: 88 Walking 10ft on uneven surface: 3 Gait Assistive Device: FWW Does the Pt Use a Wheelchair: No Wheel 50 ft with 2 turns: 9 Wheel 150 ft: 9 Type of Wheelchair: Manual #of Steps: 1 1 Step (curb): 3 4 Steps: 88 Walking Assistive Device: Walker 12 Steps: 9 Picking up an Object: 3 Eatin (brings cup to mouth and drinks IND.) Oral Hygiene: 4 (Pt completes oral hygiene at sink with SBA-CGA with FWW.) Shower/Bathe Self: 7 (Based on pt report, pt has caregiver/ bath aide support 3-4 days per week. Pt states helper assists in/ out of shower and completes all bathing tasks for pt.) Upper Body Dressin (Per pt report, pt receives assist with bra donning. pt denies shirt off/ on) Lower Body Dressin (SBA EOB-standing. Pt doffs in stance, pt dons while in seated. CGA in stance to well puller head hips.) On/Off Footwear: 4 (CGA in stance to complete shoe don/ doffing. Pt states she does not wear socks.) Toileting Hygiene: 9 (Pt states she has bedee which provides hygiene and drying to bottom.) Toilet Transfer: 4 (Pt states she has high-rise toilet at home, states she would be able to complete toilet transfer to [facility]'s standard toilet.Pt completes from FWW to standard stool with CGA, pt utilizes grab bars during sit to stand. Pt denies need for commode for comfort.) PM&R Allergy/Meds/Data Review Allergies Coded Allergies: No Known Drug Allergies (Unverified , 10/04/13) Home Medications Scheduled Allopurinol (Allopurinol), 100 MG PO DAILY, (Reported) Citalopram Hydrobromide (Citalopram HBr), 10 MG PO DAILY, (Reported) Fenofibrate,Micronized (Fenofibrate), 134 MG PO DAILY, (Reported) Hydrochlorothiazide (Hydrochlorothiazide), 25 MG PO DAILY, (Reported) Metronidazole (Metronidazole), 250 MG PO BID, (Reported) Saccharomyces Boulardii (Florastor), 250 MG PO BID, (Reported) Scheduled PRN Meclizine HCl (Meclizine HCl), 25 MG PO TID PRN for DIZZINESS, (Reported) Discontinued Medications Acetaminophen (Tylenol), 325 MG PO Q6H PRN for PAIN-MILD, (Reported) Discontinued Reason: No Longer Taking Current Medications Current Medications Reviewed Laboratory Data Laboratory Tests 11/02/19 05:57: White Blood Count 4.8, Red Blood Count 3.71L, Hemoglobin 12.0, Hematocrit 37, Mean Corpuscular Volume 101H, Mean Corpuscular Hemoglobin 32, Mean Corpuscular Hemoglobin Concent 32, Red Cell Distribution Width 15.0H, Platelet Count 112L, Mean Platelet Volume 11.5H, Neutrophils (%) (Auto) 68, Lymphocytes (%) (Auto) 18, Monocytes (%) (Auto) 12, Eosinophils (%) (Auto) 2, Basophils (%) (Auto) 0, Neutrophils # (Auto) 3.2, Lymphocytes # (Auto) 0.8L, Monocytes # (Auto) 0.6, Eosinophils # (Auto) 0.1, Basophils # (Auto) 0.0, Sodium Level 141, Potassium Level 3.1L, Chloride Level 107, Carbon Dioxide Level 23, Anion Gap 11, Blood Urea Nitrogen 12, Creatinine 0.76, Estimat Glomerular Filtration Rate > 60, BUN/Creatinine Ratio 16, Glucose Level 98, Calcium Level 10.7H, Corrected Calcium 11.0H, Total Bilirubin 0.5, Aspartate Amino Transf (AST/SGOT) 35H, Alanine Aminotransferase (ALT/SGPT) 20, Alkaline Phosphatase 55, Total Protein 6.0L, Albumin 3.6 Review of Systems Constitutional: see HPI, dizziness, malaise, weakness EENTM: no symptoms reported Respiratory: no symptoms reported Cardiovascular: no symptoms reported Gastrointestinal: no symptoms reported Genitourinary: no symptoms reported Musculoskeletal: no symptoms reported Skin: no symptoms reported Psychiatric/Neurological: Other (confusion at times) Physical Exam Physical Exam Vital Signs Vital Signs - First Documented 11/01/19 12:30 Temp 36.4 Pulse 72 Resp 18 B/P (MAP) 130/75 (93) Pulse Ox 95 O2 Delivery Room Air Capillary Refill : Height, Weight, BMI Height: 5'5.00" Weight: 170lbs. 0.0oz. [id number]; 32.39 BMI Method:Estimated General Appearance: No Apparent Distress, WD/WN, Chronically ill Eyes: Bilateral Eye Normal Inspection, Bilateral Eye PERRL HEENT: PERRL/EOMI, Normal ENT Inspection, Pharynx Normal Neck: Full Range of Motion, Normal Inspection, Non Tender, Supple, Carotid Bruit Respiratory: Chest Non Tender, Lungs Clear, Normal Breath Sounds, No Accessory Muscle Use, No Respiratory Distress Cardiovascular: Regular Rate, Rhythm, No Edema, No Gallop, No JVD, No Murmur, Normal Peripheral Pulses Gastrointestinal: Normal Bowel Sounds, No Organomegaly, No Pulsatile Mass, Non Tender, Soft Back: Normal Inspection, No CVA Tenderness, No Vertebral Tenderness Extremity: Normal Capillary Refill, Normal Inspection, Normal Range of Motion, Non Tender, No Calf Tenderness, No Pedal Edema Neurologic/Psychiatric: Alert, Oriented x3, No Motor/Sensory Deficits, Normal Mood/Affect, product marketing intern II-XII Norm as Tested, Abnormal Gait (fall risk), Disoriented (subtle deficit) Skin: Normal Color, Warm/Dry Lymphatic: No Adenopathy PM&R Medical Assessment & Plan REHAB/MEDICAL ASSESSMENT AND PLAN: REHAB IMPAIRMENT GROUP: Debility ETIOLOGIC DIAGNOSIS: Syncope with falls The comorbidities that impact the patients function and/or functional outcome by: h/o C diff maintained on preventive treatment, orthostasis, cardiac w/u in process REHAB PLAN: The patient is being admitted to our comprehensive inpatient rehabilitation facility and can tolerate the intensity of service consisting of at least: 180 minutes of therapy a day, 5 out of 7 days a week Rehab treatment will consist of: PT and OT will both focus on increasing ambulatory skills in order to prevent orthostasis and subsequent falls The patient/family has a good understanding of our discharge process and will benefit from an interdisciplinary inpatient rehabilitation program. The patient has potential to make improvement and is in need of at least two of the following multidisciplinary therapies including but not limited to physical, occupational, speech, and prosthetics and orthotics. Additionally the patient will need services from respiratory, nutritional services, wound care, psychology, etc. (Customize this to each patient). Given the patients complex condition and risk of further medical complications, rehabilitation services cannot be safely or effectively provided at a lower level of care such as a assisted facility. BARRIERS TO DISCHARGE: Lives alone ESTIMATED LOS: 7 days DISPOSITION: Home RELEVANT CHANGES SINCE PREADMISSION SCREENING: I have compared the patients medical and functional status at the time of the preadmission screening and there are: no changes PROGNOSIS: Good REHABILITATION GOALS: 1.PT and OT will both treat aggressively in order to return patient home at [place] and prevent falls All the above goals were reviewed with the patient and he/she is in agreement. By signing this document, I acknowledge that I have personally performed a full physical examination on this patient within 24 hours of admission to this inpatient rehabilitation facility and have determined the patient to be able to tolerate the above course of treatment at an intensive level for a reasonable period of time. I will be completing a detailed individualized Plan of Care for this patient by day #4 of the patients stay based upon the Preadmission Screen, the Post-Admission Evaluation, and the therapy evaluations. Admission Dx/Comorbidities: (1) Debility ICD Codes: R53.81 - Other malaise (2) Fall on same level Status: Acute ICD Codes: W18.30XA - Fall on same level, unspecified, initial encounter (3) Rhabdomyolysis Status: Acute ICD Codes: M62.82 - Rhabdomyolysis (4) Vertigo Status: Acute ICD Codes: R42 - Dizziness and giddiness (5) Volume depletion Status: Acute ICD Codes: E86.9 - Volume depletion, unspecified (6) Dementia Status: Acute ICD Codes: F03.90 - Unspecified dementia without behavioral disturbance (7) Confusion Status: Acute ICD Codes: R41.0 - Disorientation, unspecified (8) C. difficile colitis Status: Acute ICD Codes: A04.72 - Enterocolitis due to Clostridium difficile, not specified as recurrent (9) Altered mental state Status: Acute ICD Codes: R41.82 - Altered mental status, unspecified (10) Orthostasis ICD Codes: I95.1 - Orthostatic hypotension RASHEED BISHOP DO Nov 02, 2019 07:07 POS
[2019-11-02] MEDS ORDERED: NON-FORMULARY MEDICATION 1 EA EA (Allopurinol 100 MG) PO SCH (09:00)
[2019-11-02] MEDS: FENOFIBRATE 134 MG (LOFIBRA) CAPSULE PO SCH (09:10)
[2019-11-02] MEDS: DOCUSATE SODIUM 100 MG (COLACE) CAP PO SCH ×2 (09:10→19:45)
[2019-11-02] MEDS: ALLOPURINOL 100 MG (ZYLOPRIM) TAB PO SCH (09:10)
[2019-11-02] MEDS: LACTOBACILLUS ACIDOPHILUS (PROBIOTIC) CAPSULE PO SCH ×2 (09:10→19:45)
[2019-11-02] MEDS: SENNA W/DOCUSATE (SENOKOT S) TABLET PO SCH ×2 (09:11→19:46)
[2019-11-02] MEDS: POLYETHYLENE GLYCOL 17 GM (MIRALAX) PACK PO SCH ×2 (09:15→19:46)
[2019-11-02] MEDS: metroNIDAZOLE 250 MG (FLAGYL) TAB PO SCH ×2 (10:15→19:45)
--- NOTE | 2019-11-02 10:34 | NUR ---
dr Cuellar here to see pt.
--- NOTE | 2019-11-02 11:00 | Progress Note - Cardiology ---
Cardiology SOAP Progress Note Subjective: No cp or palp or syncope (since admission) or shortness of breath at rest Gen weakness and malaise A daughter who is by bedside provides a longstanding h/o postural dizziness in her mother Objective: I&O/Vital Signs 11/02/19 11/02/19 11/02/19 01:00 06:10 07:00 Temp 37.4 Pulse 53 65 62 Resp 20 B/P (MAP) 156/76 (102) Pulse Ox 98 O2 Delivery Room Air 11/02/19 00:00 Intake Total 400 ml Balance 400 ml Weight (Pounds): 170 Weight (Ounces): 0.0 Weight (Calculated Kilograms): [id number] Constitutional: AAO x 3, well-developed, well-nourished Respiratory: No accessory muscle use, No respiratory distress; chest expansion is symmetric, chest is bilaterally symmetric, lungs clear to auscultation Cardiovascular: regular rate-rhythm; No JVD; S1 and S2 Gastrointestional: No tender; soft, round, audible bowel sounds Extremities: no lower extremity edema bilateral Neurologic/Psychiatric: other (poor memory, alert and orientd x 3, moves all limbs equally) Skin: No rash on exposed areas, No ulcerations on exposed areas Results/Procedures: Labs Laboratory Tests 11/02/19 05:57: White Blood Count 4.8, Red Blood Count 3.71L, Hemoglobin 12.0, Hematocrit 37, Mean Corpuscular Volume 101H, Mean Corpuscular Hemoglobin 32, Mean Corpuscular Hemoglobin Concent 32, Red Cell Distribution Width 15.0H, Platelet Count 112L, Mean Platelet Volume 11.5H, Neutrophils (%) (Auto) 68, Lymphocytes (%) (Auto) 18, Monocytes (%) (Auto) 12, Eosinophils (%) (Auto) 2, Basophils (%) (Auto) 0, Neutrophils # (Auto) 3.2, Lymphocytes # (Auto) 0.8L, Monocytes # (Auto) 0.6, Eosinophils # (Auto) 0.1, Basophils # (Auto) 0.0, Sodium Level 141, Potassium Level 3.1L, Chloride Level 107, Carbon Dioxide Level 23, Anion Gap 11, Blood Urea Nitrogen 12, Creatinine 0.76, Estimat Glomerular Filtration Rate > 60, BUN/Creatinine Ratio 16, Glucose Level 98, Calcium Level 10.7H, Corrected Calcium 11.0H, Total Bilirubin 0.5, Aspartate Amino Transf (AST/SGOT) 35H, Alanine Aminotransferase (ALT/SGPT) 20, Alkaline Phosphatase 55, Total Protein 6.0L, Albumin 3.6 Laboratory Tests 11/02/19 05:57 A/P: Assessment: Syncopal episodes of undetermined etiology - possibly r/t orthostatic hypotension Echo of 11/01/19: LVEF 60-65%, RVSP 27 mmHg Hypokalemia, likely due to chronic diuretic therapy HTN, by history Hardness of hearing Plan: * I had long and detailed discussion with her, a daughter who was by bedside, and a daughter (a nurse) who was on the phone. We went over potential etiologies of syncope and our eval and treatment plan * Continue tele to eval for judson-arrhythmia. Consider ILR if no arrhythmia seen during hospitalization * Stop diuretic. Replenish K * Monitor lab * Further recs will be based on her hospital course BARBARA PERRY MD FACP FAC [facility] Nov 02, 2019 11:00 POS
[2019-11-02] MEDS ORDERED: KCL 20 MEQ TAB (K-DUR) PO ONE (11:15)
--- NOTE | 2019-11-02 12:31 | Physical Therapy Daily Note ---
PT Daily Note-Current Subjective Pt sitting with family in common area. Pt reports she has been "light headed but not dizzy" this morning. Pt rates pain 5-6/10 (L) foot upon standing and walking initially. Pt reported decreased pain after walking in leg and decreased light headedness as well. Pt indicated "I feel better. Exercise must be good for me." Transfers SCALE: Activities may be completed with or without assistive devices. 6-Wfwkuebrei-bojamvk completes the activity by him/herself with no assistance from a helper. 5-Set-up or Clean-up Assistance-helper sets up or cleans up; patient completes activity. [place] assists only prior to or following the activity. 4-Supervision or Touching Assistance-helper provides verbal cues and/or touching/steadying and/or contact guard assistance as patient completes act ivity. Assistance may be provided throughout the activity or intermittently. 3-Partial/Moderate Assistance-helper does LESS THAN HALF the effort. [place] lifts, holds or supports trunk or limbs, but provides less than half the effort. 2-Substantial/Maximal Assistance-helper does MORE THAN HALF the effort. [place] lifts or holds trunk or limbs and provides more than half the effort. 1-Gsixynowg-hlmsab does ALL the effort. Patient does none of the effort to complete the activity. Or, the assistance of 2 or more helpers is required for the patient to complete the activity. If activity was not attempted, code reason: 7-Patient Refused. 9-Not Applicable-not attempted and the patient did not perform the activity before the current illness, exacerbation or injury. 10-Not Attempted due to Environmental Limitations-(lack of equipment, weather restraints, etc.). 88-Not Attempted due to Medical Conditions or Safety Concerns. Gait Training Gait Assistive Device: FWW Treatments Pt BP taken upon standing 122/71. Pt amb with FWW and CGA x 500ft, slow and steady. Pt back to bed SBA. Pt resting in bed with call light and all needs met. Pt family present. Assessment Current Status: Good Progress Very good tolerance to treatment. Pt symptoms improved with therapy. Pt resting and all needs met post therapy. PT [place] Operator Goals [place] Operator Goals PT [place] Operator Goals Time Frame: Nov 30, 2019 Roll Left & Right (QC): 5 Sit to Lying (QC): 5 Lying-Sitting on Side/Bed(QC): 5 Sit to Stand (QC): 5 Chair/Bnu-lb-Gcsqk Xfer(QC): 5 Toilet Transfer (QC): 5 Car Transfer (QC): 5 Does the Patient Walk: Yes Walk 10 feet (QC): 5 Walk 50ft with 2 Turns (QC): 5 Walk 150 ft (QC): 5 Walking 10ft on Uneven Surface: 5 1 Step (curb) (QC): 5 4 Steps (QC): 5 12 Steps (QC): 9 Picking up an Object (QC): 5 Does the Pt use WC or Scooter?: No Type: N/A Type: N/A PT Plan Treatment/Plan Treatment Plan: Continue Plan of Care Treatment Plan: Bed Mobility, Concurrent Therapy, Education, Functional Activity Merry, Functional Strength, Group Therapy, Gait, Safety, Therapeutic E xercise, Transfers Treatment Duration: Nov 30, 2019 Frequency: At least 5 of 7 days/Wk (IRF) Estimated Hrs Per Day: 1.5 hours per day Patient and/or Family Agrees t: Yes Time/GCodes Time In: 1205 Time Out: 1230 Total Billed Treatment Time: 25 Total Billed Treatment 1, Gait 25min NATHANIEL ARAUZ CPTA Nov 02, 2019 12:31 POS
--- NOTE | 2019-11-02 12:46 | Individualized Plan of Care ---
Individualized Plan of Care Rehab Nursing IPOC Order Admission Date Nov 01, 2019 at 12:39 Current Orders Orders Admission Order(Inpt,Obs,Sdc) (11/01/19 11:23) Vital Signs: Per Unit Policy ( 08,16,00 (11/01/19 11:23) Rolo Chamberlain 09,21 (11/01/19 11:23) Sequential Compression Device Q4H (11/01/19 11:23) Ensemble Member-Inpt Rehab Con (11/01/19 11:23) Rehab Nursing Orders-Ipoc (11/01/19 11:23) Physical Therapy Rehab Orders (11/01/19 11:23) Occupational Therapy Rehab Ord (11/01/19 11:23) Speech Therapy Rehab Orders (11/01/19:23) Cbc With Automated Diff (11/02/19 06:00) Comprehensive Metabolic Panel (11/02/19 06:00) General/Regular (11/01/19 Dinner) Intake & Output 06,14, (11/01/19 11:23) Precautions (Aru) (11/01/19 11:23) Weekly Weight WEEK (11/01/19 11:23) Rehab-Intensity Of Therapy (11/01/19 11:23) Initiate Admission Nursing Pro .admission (11/01/19 11:23) Acetaminophen Tablet (Tylenol Tablet) (11/01/19 11:30) Alprazolam Tablet (Xanax Tablet) (11/01/19 11:30) Calcium Carbonate Chew Tablet (Antacid C (11/01/19 11:30) Diphenhydramine Tablet (Benadryl Tablet) (11/01/19 11:30) Docusate Sodium Capsule (Colace Capsule) (11/01/19 21:00) Docusate Sodium Capsule (Colace Capsule) (11/01/19 11:30) Bisacodyl Suppository (Dulcolax Supposit (11/01/19 11:30) Lactulose Oral Solution (Enulose Oral So (11/01/19 11:30) Na Phos/Na Biphos Enema (Fleet Enema Jose Cruz (11/01/19 11:30) Guaifenesin/Codeine Syrup (Robitussin Ac (11/01/19 11:30) Loperamide Tablet (Imodium Tablet) (11/01/19 11:30) Enoxaparin Injection (Lovenox Injection) (11/01/19 14:00) Melatonin Tablet (Melatonin Tablet) (11/01/19 11:30) Polyethylene Glycol Powder Pkt (Miralax (11/01/19 21:00) Ondansetron Oral Dissolve Tab (Zofran (11/01/19 11:30) Senna S Tablet (Senokot S Tablet) (11/01/19 21:00) Initiate Admission Nursing Pro .admission (11/01/19 11:23) Nursing Communication (Order) (11/01/19 11:23) Ekg Tracing (11/01/19 11:26) Consult Cardiology (11/01/19 11:26) Echo W Doppler/Color Flow (11/01/19 11:26) Telemetry (11/01/19 11:26) Telemetry Nursing Assessment ( (11/01/19 11:26) Admission Arrival Bed Request (11/01/19 12:28) Patient Visit (11/01/19 ) Pt Eval Moderate Complexity (11/01/19 ) Citalopram Tablet (Celexa Tablet) (11/02/19 09:00) Fenofibrate,Micronized Capsule (Lofibra (11/02/19 09:00) Meclizine Tablet (Antivert Tablet) (11/01/19 13:45) Metronidazole Tablet (Flagyl Tablet) (11/01/19 21:00) (Nf) Allopurinol (11/02/19 09:00) (Nf) Saccharomyces Boulardii (Florastor) (11/01/19 21:00) Patient Visit (11/01/19 ) Speech Sound Lang Comp (11/01/19 ) Patient Visit (11/01/19 ) Therapeutic, Group (11/01/19 ) Exercise Therap, Ea 15 Min (11/01/19 ) Functional Activities, Ea 15 (11/01/19 ) Allopurinol Tablet (Zyloprim Tablet) (11/02/19 09:00) Lactobacillus Acidophilus Cap (Acidophil (11/01/19 21:00) Ambulate 08,12,20 (11/01/19 16:56) Sequential Compression Device Q4H (11/01/19 16:56) Dvt/Vte Risk - Notifiy Physici Q4H (11/01/19 16:56) Code/Resuscitation (11/01/19 17:13) Potassium Chloride (Tablet) (K Dur Table (11/02/19 11:15) Comprehensive Metabolic Panel (11/03/19 05:00) Magnesium (11/03/19 05:00) Cbc With Automated Diff (11/03/19 05:00) Thyroid Stimulating Hormone (11/03/19 05:00) Diclofenac 1% Gel (Voltaren 1% Gel) (11/02/19 13:00) Nursing Communication (Order) (11/02/19 12:49) Patient Visit (11/02/19 ) Gait Training, Ea 15 Min (11/02/19 ) Rehab Nursing Orders: Ongoing Assess. of Cognitive Status, Ongoing Assess. of Function Status, Bladder Management, Bladder Scan, Bladder Training, Bowel Man agement, Bowel Training, Disease Management & Educaiton, DVT Prophylaxis, Fall Prevention, Fluid/Electrolyte/Nutrition Mgmt, Infection Prevention, Medication Management & Education, Management of Risks & Complications, Nutrition Management, Pain Management, Patient/Family Support, Safety Management Intensity of Therapy to be met Patient to be seen: Min.3h per day/5 of 7d PT IPOC Problem List: Activity Tolerance, Functional Strength, Safety, Balance, Gait, Transfer, Bed Mobility Treatment Plan: Continue Plan of Care Bed Mobility, Concurrent Therapy, Education, Functional Activity Merry, Functional Strength, Group Therapy, Gait, Safety, Therapeutic Exercise, Transfers Treatment Duration: Nov 30, 2019 Frequency: At least 5 of 7 days/Wk (IRF) Estimated Hrs Per Day: 1.5 hours per day OT IPOC Problems: Decreased Activ Tolerance, Decreased UE Strength, Impaired Cognition, Impaired Funct Balance, Impaired I ADL's, Impaired Self-Care Skills OT Treatment, Training and Edu: Yes Plan of Care: ADL Retraining, Caregiver Training, Functional Mobility, Group Exercise/Act as Ind, UE Funct Exercise/Act Treatment Duration: Nov 15, 2019 Frequency: At least 5 of 7 days/Wk (IRF) Estimated Hrs Per Day: 1.[address] IPOC Speech Therapy Treatment Plan: Discontinue ST Treatment Duration: Nov 01, 2019 Frequency: 1 time per week Estimated Hrs Per Day: .25 hour per day Ensemble Member/Case Mgmt Ensemble Member/Case Managemen: Discharge Planning Dietitian/Cash Specialist Dietitian/Cash Specialist to monitor nutritional status and make changes and/or recommendations as needed and work with speech pathology on dietary upgrades as the occur. Physician IPOC Medical Issues being managed closely and that require the 24 hour availability of a physician: Recurrent syncope requiring Cardiology evaluation and Telemetry monitoring with orthostasis monitoring Brief Synthesis of Preadmission Screen, Post-Admission Evaluation, and Therapy Evaluations: PT will focus on improvement in orthostasis and fall risk prevention with slow positional changes OT will help patient regain independence in ADL's Medical Prognosis: Good Anticipated Length of Stay: 7 days RASHEED BISHOP DO Nov 02, 2019 12:46 POS
--- NOTE | 2019-11-02 12:46 | PM&R Progress Note ---
Subjective HPI/CC On Admission Date Seen by Provider: Nov 02, 2019 Time Seen by Provider: 12:20 Subjective/Events-last exam Patient doing much better Right knee pain likely injured during her fall mentioned so will initiate Voltaren gel and K pad GRETCHEN hose and Edgar wraps maintained for compression therapy for orthostasis treatment Potassium 3.1 replaced by cardiology No orthostasis noted by nursing at this current time but working on slow positional changes to prevent any dip in blood pressure Confusion noted but slums score was normal and I will have speech therapy evaluate her again since she does appear to be confused often during the day Family at the bedside Appreciate cardiology evaluation Denies any pain otherwise Check meds and labs Reviewed therapy notes Conferred with hose seamer of Systems General: Fatigue, [place] Musculoskeletal: leg pain Objective Exam Vital Signs Vital Signs Date Time Temp Pulse Resp B/P (MAP) Pulse Ox O2 Delivery O2 Flow Rate FiO2 11/02/19 19:00 70 11/02/19 17:50 37.8 18 132/75 (94) 95 Room Air Capillary Refill : General Appearance: No Apparent Distress, WD/WN, Chronically ill HEENT: PERRL/EOMI, Normal ENT Inspection, Pharynx Normal Neck: Full Range of Motion, Normal Inspection, Non Tender, Supple, Carotid Bruit Respiratory: Chest Non Tender, Lungs Clear, Normal Breath Sounds, No Accessory Muscle Use, No Respiratory Distress Cardiovascular: Regular Rate, Rhythm, No Edema, No Gallop, No JVD, No Murmur, Normal Peripheral Pulses Gastrointestinal: Normal Bowel Sounds, No Organomegaly, No Pulsatile Mass, Non Tender, Soft Back: Normal Inspection, No CVA Tenderness, No Vertebral Tenderness Extremity: Normal Capillary Refill, Normal Inspection, Normal Range of Motion, Non Tender, No Calf Tenderness, No Pedal Edema Neurologic/Psychiatric: Alert, Oriented x3, No Motor/Sensory Deficits, Normal Mood/Affect, manager state II-XII Norm as Tested, Abnormal Gait (fall risk), Disoriented (subtle deficit) Skin: Normal Color, Warm/Dry Lymphatic: No Adenopathy Results/Procedures Lab Laboratory Tests 11/02/19 05:57 Patient resulted labs reviewed. FIM Transfers Therapy Code Descriptions/Definitions Functional [place] Measure: 0=Not Assessed/NA 4=Minimal Assistance 1=Total Assistance 5=Supervision or Setup 2=Maximal Assistance 6=Modified [place] 3=Moderate Assistance 7=Complete IndependenceSCALE: Activities may be completed with or without assistive devices. 9-Noeldmryxf-qlzjwkm completes the activity by him/herself with no assistance from a helper. 5-Set-up or Clean-up Assistance-helper sets up or cleans up; patient completes activity. [place] assists only prior to or following the activity. 4-Supervision or Touching Assistance-helper provides verbal cues and/or touching/steadying and/or contact guard assistance as patient completes activity. Assistance may be provided throughout the activity or intermittently. 3-Partial/Moderate Assistance-helper does LESS THAN HALF the effort. [place] lifts, holds or supports trunk or limbs, but provides less than half the effort. 2-Substantial/Maximal Assistance-helper does MORE THAN HALF the effort. [place] lifts or holds trunk or limbs and provides more than half the effort. 1-Kheibbhos-rkcxhz does ALL the effort. Patient does none of the effort to complete the activity. Or, the assistance of 2 or more helpers is required for the patient to complete the activity. If activity was not attempted, code reason: 7-Patient Refused. 9-Not Applicable-not attempted and the patient did not perform the activity before the current illness, exacerbation or injury. 10-Not Attempted due to Environmental Limitations-(lack of equipment, weather restraints, etc.). 88-Not Attempted due to Medical Conditions or Safety Concerns. Roll Left to Right (QC): 3 Sit to Lying (QC): 3 Sit to Stand (QC): 3 Chair/Qrn-vf-Hnbjl Xfer(QC): 3 Car Transfer (QC): 3 Gait Training Does the Patient Walk?: Yes Walk 10 feet (QC): 3 Walk 50 ft with 2 Turns(QC): 3 Walk 150 ft (QC): 88 Walking 10ft/uneven surface-QC: 3 Gait Assistive Device: FWW Wheelchair Training Does the Pt Use a Wheelchair?: No Wheel 50 ft with 2 turns (QC): 9 Wheel 150 ft (QC): 9 Type of Wheelchair: Manual Stair Training #of Steps: 1 1 Step (curb) (QC): 3 4 Steps (QC): 88 12 Steps (QC): 9 Balance Picking up an Object (QC): 3 ADL-Treatment Eating (QC): 6 (brings cup to mouth and drinks IND.) Oral Hygiene (QC): 4 (Pt completes oral hygiene at sink with SBA-CGA with FWW.) Shower/Bathe Self (QC): 7 (Based on pt report, pt has caregiver/ bath aide support 3-4 days per week. Pt states helper assists in/ out of shower and completes all bathing tasks for pt.) Upper Body Dressing (QC): 7 (Per pt report, pt receives assist with bra donning. pt denies shirt off/ on) Lower Body Dressing (QC): 4 (SBA EOB-standing. Pt doffs in stance, pt dons while in seated. CGA in stance to bone puller hips.) On/Off Footwear (QC): 4 (CGA in stance to complete shoe don/ doffing. Pt states she does not wear socks.) Toileting Hygiene (QC): 9 (Pt states she has bedee which provides hygiene and drying to bottom.) Toilet Transfer (QC): 4 (Pt states she has high-rise toilet at home, states she would be able to complete toilet transfer to [facility]'s standard toilet.Pt completes from FWW to standard stool with CGA, pt utilizes grab bars during sit to stand. Pt denies need for commode for comfort.) Assessment/Plan Assessment and Plan Assess & Plan/Chief Complaint Assessment: Recurrent syncope Recurrent falls Orthostatic hypotension Hypokalemia Hypertension history holding hydrochlorothiazide History of C. difficile colitis Confusion Plan: Inpatient rehab protocol Orthostasis management Appreciate cardiology Telemetry (1) Debility (2) Fall on same level Status: Acute (3) Rhabdomyolysis Status: Acute (4) Vertigo Status: Acute (5) Volume depletion Status: Acute (6) Dementia Status: Acute (7) Confusion Status: Acute (8) C. difficile colitis Status: Acute (9) Altered mental state Status: Acute (10) Orthostasis RASHEED BISHOP DO Nov 02, 2019 12:46 POS
[2019-11-02] MEDS: ENOXAPARIN 40 MG/0.4 ML (LOVENOX) SYR SC SCH (13:46)
[2019-11-02] MEDS: DICLOFENAC 1% GEL 100 GM (VOLTAREN) TUBE TOP SCH ×3 (13:47→19:48)
[2019-11-02 17:50] VITALS: BP 132/75
[2019-11-02] MEDS: MELATONIN 3 MG TABLET PO PRN (19:45)
[2019-11-03 06:05] VITALS: BP 155/66
[2019-11-03 06:07] LABS: BASOPHILS % (AUTO) 0 % (0-10); EOSINOPHILS # (AUTO) 0.1 10^3/uL (0.0-0.3); EOSINOPHILS % (AUTO) 3 % (0-10); HEMATOCRIT 36 % (35-52); HEMOGLOBIN 11.6 G/DL (11.5-16.0); LYMPHOCYTES % (AUTO) 21 % (12-44); MEAN CORPUSCULAR HEMOGLOBIN 32 PG (25-34); MEAN CORPUSCULAR HGB CONC 32 G/DL (32-36); MEAN CORPUSCULAR VOLUME 101 FL (80-99); MONOCYTES # (AUTO) 0.5 X 10^3 (0.0-1.0); MONOCYTES % (AUTO) 11 % (0-12); NEUTROPHILS % (AUTO) 65 % (42-75); PLATELET COUNT 112 10^3/uL (130-400); RED CELL DISTRIBUTION WIDTH 15.2 % (10.0-14.5); WHITE BLOOD COUNT 4.6 10^3/uL (4.3-11.0)
[2019-11-03 06:26] LABS: ALANINE AMINOTRANSFERASE 19 U/L (0-55); ALBUMIN 3.3 GM/DL (3.2-4.5); ALKALINE PHOSPHATASE 57 U/L (40-136); BILIRUBIN,TOTAL 0.4 MG/DL (0.1-1.0); BUN/CREATININE RATIO 17; CALCIUM 10.5 MG/DL (8.5-10.1); CARBON DIOXIDE 22 MMOL/L (21-32); CHLORIDE 110 MMOL/L (98-107); CREATININE SERUM 0.78 MG/DL (0.60-1.30); GFR ESTIMATED > 60; GLUCOSE 94 MG/DL (70-105); MAGNESIUM 1.7 MG/DL (1.6-2.4); POTASSIUM 3.5 MMOL/L (3.6-5.0); SODIUM 143 MMOL/L (135-145); TOTAL PROTEIN 5.8 GM/DL (6.4-8.2)
[2019-11-03] MEDS: LACTOBACILLUS ACIDOPHILUS (PROBIOTIC) CAPSULE PO SCH ×2 (10:11→21:08)
[2019-11-03] MEDS: ALLOPURINOL 100 MG (ZYLOPRIM) TAB PO SCH (10:12)
[2019-11-03] MEDS: SENNA W/DOCUSATE (SENOKOT S) TABLET PO SCH ×2 (10:12→21:11)
[2019-11-03] MEDS: DOCUSATE SODIUM 100 MG (COLACE) CAP PO SCH ×2 (10:12→21:10)
[2019-11-03] MEDS: FENOFIBRATE 134 MG (LOFIBRA) CAPSULE PO SCH (10:12)
[2019-11-03] MEDS: metroNIDAZOLE 250 MG (FLAGYL) TAB PO SCH ×2 (10:12→21:08)
[2019-11-03] MEDS: DICLOFENAC 1% GEL 100 GM (VOLTAREN) TUBE TOP SCH ×4 (10:13→21:09)
[2019-11-03] MEDS: POLYETHYLENE GLYCOL 17 GM (MIRALAX) PACK PO SCH ×2 (10:13→21:11)
--- NOTE | 2019-11-03 11:29 | PM&R Progress Note ---
Subjective HPI/CC On Admission Date Seen by Provider: Nov 03, 2019 Time Seen by Provider: 11:30 Subjective/Events-last exam Patient doing much better as days progress Right knee pain helped by Voltaren gel and K pad GRETCHEN hose and Edgar wraps maintained for compression therapy for orthostasis treatment Potassium 3.5 replaced by cardiology No orthostasis noted by nursing at this current time but working on slow po sitional changes to prevent any dip in blood pressure Confusion noted but slums score was normal and I will have speech therapy evaluate her again since she does appear to be confused often during the day BM yesterday Appreciate cardiology evaluation Denies any pain otherwise Check meds and labs Reviewed therapy notes Conferred with water registrar of Systems General: Fatigue Neurological: Confusion Objective Exam Vital Signs Vital Signs Date Time Temp Pulse Resp B/P (MAP) Pulse Ox O2 Delivery O2 Flow Rate FiO2 11/03/19 19:00 62 11/03/19 18:00 36.7 16 166/77 (106) 96 Room Air Capillary Refill : General Appearance: No Apparent Distress, WD/WN, Chronically ill HEENT: PERRL/EOMI, Normal ENT Inspection, Pharynx Normal Neck: Full Range of Motion, Normal Inspection, Non Tender, Supple, Carotid Bruit Respiratory: Chest Non Tender, Lungs Clear, Normal Breath Sounds, No Accessory Muscle Use, No Respiratory Distress Cardiovascular: Regular Rate, Rhythm, No Edema, No Gallop, No JVD, No Murmur, Normal Peripheral Pulses Gastrointestinal: Normal Bowel Sounds, No Organomegaly, No Pulsatile Mass, Non Tender, Soft Back: Normal Inspection, No CVA Tenderness, No Vertebral Tenderness Extremity: Normal Capillary Refill, Normal Inspection, Normal Range of Motion, Non Tender, No Calf Tenderness, No Pedal Edema Neurologic/Psychiatric: Alert, Oriented x3, No Motor/Sensory Deficits, Normal Mood/Affect, network intelligence analyst II-XII Norm as Tested, Abnormal Gait (fall risk), Disoriented (subtle deficit) Skin: Normal Color, Warm/Dry Lymphatic: No Adenopathy Results/Procedures Lab Laboratory Tests 11/03/19 05:59 Patient resulted labs reviewed. FIM Transfers Therapy Code Descriptions/Definitions Functional [place] Measure: 0=Not Assessed/NA 4=Minimal Assistance 1=Total Assistance 5=Supervision or Setup 2=Maximal Assistance 6=Modified [place] 3=Moderate Assistance 7=Complete IndependenceSCALE: Activities may be completed with or without assistive devices. 8-Pvnmvtssnd-jyxmkml completes the activity by him/herself with no assistance from a helper. 5-Set-up or Clean-up Assistance-helper sets up or cleans up; patient completes activity. [place] assists only prior to or following the activity. 4-Supervision or Touching Assistance-helper provides verbal cues and/or nidhi robyn/steadying and/or contact guard assistance as patient completes activity. Assistance may be provided throughout the activity or intermittently. 3-Partial/Moderate Assistance-helper does LESS THAN HALF the effort. [place] lifts, holds or supports trunk or limbs, but provides less than half the effort. 2-Substantial/Maximal Assistance-helper does MORE THAN HALF the effort. [place] lifts or holds trunk or limbs and provides more than half the effort. 0-Qkkrhyhzc-vsvdtv does ALL the effort. Patient does none of the effort to complete the activity. Or, the assistance of 2 or more helpers is required for the patient to complete the activity. If activity was not attempted, code reason: 7-Patient Refused. 9-Not Applicable-not attempted and the patient did not perform the activity b efore the current illness, exacerbation or injury. 10-Not Attempted due to Environmental Limitations-(lack of equipment, weather restraints, etc.). 88-Not Attempted due to Medical Conditions or Safety Concerns. Roll Left to Right (QC): 3 Sit to Lying (QC): 3 Sit to Stand (QC): 3 Chair/Puq-db-Qgoau Xfer(QC): 3 Car Transfer (QC): 3 Gait Training Does the Patient Walk?: Yes Walk 10 feet (QC): 3 Walk 50 ft with 2 Turns(QC): 3 Walk 150 ft (QC): 88 Walking 10ft/uneven surface-QC: 3 Gait Assistive Device: FWW Wheelchair Training Does the Pt Use a Wheelchair?: No Wheel 50 ft with 2 turns (QC): 9 Wheel 150 ft (QC): 9 Type of Wheelchair: Manual Stair Training #of Steps: 1 1 Step (curb) (QC): 3 4 Steps (QC): 88 12 Steps (QC): 9 Balance Picking up an Object (QC): 3 ADL-Treatment Eating (QC): 6 (brings cup to mouth and drinks IND.) Oral Hygiene (QC): 4 (Pt completes oral hygiene at sink with SBA-CGA with FWW.) Shower/Bathe Self (QC): 7 (Based on pt report, pt has caregiver/ bath aide support 3-4 days per week. Pt states helper assists in/ out of shower and completes all bathing tasks for pt.) Upper Body Dressing (QC): 7 (Per pt report, pt receives assist with bra donning. pt denies shirt off/ on) Lower Body Dressing (QC): 4 (SBA EOB-standing. Pt doffs in stance, pt dons while in seated. CGA in stance to bone char puller hips.) On/Off Footwear (QC): 4 (CGA in stance to complete shoe don/ doffing. Pt states she does not wear socks.) Toileting Hygiene (QC): 9 (Pt states she has bedee which provides hygiene and drying to bottom.) Toilet Transfer (QC): 4 (Pt states she has high-rise toilet at home, states she would be able to complete toilet transfer to [facility]'s standard toilet.Pt completes from FWW to standard stool with CGA, pt utilizes grab bars during sit to stand. Pt denies need for commode for comfort.) Assessment/Plan Assessment and Plan Assess & Plan/Chief Complaint Assessment: Recurrent syncope Recurrent falls Orthostatic hypotension Hypokalemia Hypertension history holding hydrochlorothiazide History of C. difficile colitis Confusion Plan: Inpatient rehab protocol Orthostasis management Appreciate cardiology Cubing Machine Tender confusion (1) Debility (2) Fall on same level Status: Acute (3) Rhabdomyolysis Status: Acute (4) Vertigo Status: Acute (5) Volume depletion Status: Acute (6) Dementia Status: Acute (7) Confusion Status: Acute (8) C. difficile colitis Status: Acute (9) Altered mental state Status: Acute (10) Orthostasis RASHEED BISHOP DO Nov 03, 2019 11:29 POS
[2019-11-03] MEDS: ENOXAPARIN 40 MG/0.4 ML (LOVENOX) SYR SC SCH (13:38)
[2019-11-03 18:00] VITALS: BP 166/77
[2019-11-03] MEDS: MELATONIN 3 MG TABLET PO PRN (21:08)
[2019-11-04 06:45] VITALS: BP 147/74
[2019-11-04 07:00] LABS: BASOPHILS % (AUTO) 1 % (0-10); EOSINOPHILS # (AUTO) 0.1 10^3/uL (0.0-0.3); EOSINOPHILS % (AUTO) 2 % (0-10); HEMATOCRIT 38 % (35-52); HEMOGLOBIN 11.8 G/DL (11.5-16.0); LYMPHOCYTES # (AUTO) 0.9 X 10^3 (1.0-4.0); LYMPHOCYTES % (AUTO) 20 % (12-44); MEAN CORPUSCULAR HEMOGLOBIN 32 PG (25-34); MEAN CORPUSCULAR HGB CONC 31 G/DL (32-36); MEAN CORPUSCULAR VOLUME 101 FL (80-99); MEAN PLATELET VOLUME 11.5 FL (7.4-10.4); MONOCYTES # (AUTO) 0.5 X 10^3 (0.0-1.0); MONOCYTES % (AUTO) 10 % (0-12); NEUTROPHILS # (AUTO) 3.1 X 10^3 (1.8-7.8); NEUTROPHILS % (AUTO) 67 % (42-75); PLATELET COUNT 123 10^3/uL (130-400); RED CELL DISTRIBUTION WIDTH 15.3 % (10.0-14.5); WHITE BLOOD COUNT 4.6 10^3/uL (4.3-11.0)
[2019-11-04 07:27] LABS: ALANINE AMINOTRANSFERASE 25 U/L (0-55); ALBUMIN 3.4 GM/DL (3.2-4.5); ALKALINE PHOSPHATASE 55 U/L (40-136); BILIRUBIN,TOTAL 0.4 MG/DL (0.1-1.0); BUN/CREATININE RATIO 21; CALCIUM 10.5 MG/DL (8.5-10.1); CARBON DIOXIDE 25 MMOL/L (21-32); CHLORIDE 109 MMOL/L (98-107); CREATININE SERUM 0.81 MG/DL (0.60-1.30); GFR ESTIMATED > 60; GLUCOSE 91 MG/DL (70-105); POTASSIUM 3.5 MMOL/L (3.6-5.0); SODIUM 142 MMOL/L (135-145); TOTAL PROTEIN 5.8 GM/DL (6.4-8.2)
--- NOTE | 2019-11-04 08:24 | PM&R Progress Note ---
Subjective HPI/CC On Admission Date Seen by Provider: Nov 04, 2019 Time Seen by Provider: 08:30 Subjective/Events-last exam Daughter at the bedside Edgar wraps and maryjane hoes will be placed today Anxiety noted Confused at times so speech therapy will evaluate her again No orthostasis noted Bowels are moving Maintained on telemetry Denies any pain otherwise Check meds and labs Reviewed therapy notes Conferred with stacker operator of Systems General: Fatigue Neurological: Confusion Objective Exam Vital Signs Vital Signs Date Time Temp Pulse Resp B/P (MAP) Pulse Ox O2 Delivery O2 Flow Rate FiO2 11/05/19 01:00 55 11/04/19 20:00 Room Air 11/04/19 18:00 36.9 18 149/75 (99) 97 Capillary Refill : General Appearance: No Apparent Distress, WD/WN, Chronically ill HEENT: PERRL/EOMI, Normal ENT Inspection, Pharynx Normal Neck: Full Range of Motion, Normal Inspection, Non Tender, Supple, Carotid Bruit Respiratory: Chest Non Tender, Lungs Clear, Normal Breath Sounds, No Accessory Muscle Use, No Respiratory Distress Cardiovascular: Regular Rate, Rhythm, No Edema, No Gallop, No JVD, No Murmur, Normal Peripheral Pulses Gastrointestinal: Normal Bowel Sounds, No Organomegaly, No Pulsatile Mass, Non Tender, Soft Back: Normal Inspection, No CVA Tenderness, No Vertebral Tenderness Extremity: Normal Capillary Refill, Normal Inspection, Normal Range of Motion, Non Tender, No Calf Tenderness, No Pedal Edema Neurologic/Psychiatric: Alert, Oriented x3, No Motor/Sensory Deficits, Normal Mood/Affect, party supply specialist II-XII Norm as Tested, Abnormal Gait, Disoriented Skin: Normal Color, Warm/Dry Lymphatic: No Adenopathy Results/Procedures Lab Laboratory Tests 11/04/19 06:35 Patient resulted labs reviewed. FIM Transfers Therapy Code Descriptions/Definitions Functional [place] Measure: 0=Not Assessed/NA 4=Minimal Assistance 1=Total Assistance 5=Supervision or Setup 2=Maximal Assistance 6=Modified [place] 3=Moderate Assistance 7=Complete IndependenceSCALE: Activities may be completed with or without assistive devices. 7-Pzsaglhxop-vxmyoit completes the activity by him/herself with no assistance from a helper. 5-Set-up or Clean-up Assistance-helper sets up or cleans up; patient completes activity. [place] assists only prior to or following the activity. 4-Supervision or Touching Assistance-helper provides verbal cues and/or touching/steadying and/or contact guard assistance as patient completes activity. Assistance may be provided throughout the activity or intermittently. 3-Partial/Moderate Assistance-helper does LESS THAN HALF the effort. [place] lifts, holds or supports trunk or limbs, but provides less than half the effort. 2-Substantial/Maximal Assistance-helper does MORE THAN HALF the effort. [place] lifts or holds trunk or limbs and provides more than half the effort. 2-Vuyjwebil-jgwcis does ALL the effort. Patient does none of the effort to complete the activity. Or, the assistance of 2 or more helpers is required for the patient to complete the activity. If activity was not attempted, code reason: 7-Patient Refused. 9-Not Applicable-not attempted and the patient did not perform the activity before the current illness, exacerbation or injury. 10-Not Attempted due to Environmental Limitations-(lack of equipment, weather restraints, etc.). 88-Not Attempted due to Medical Conditions or Safety Concerns. Roll Left to Right (QC): 3 Sit to Lying (QC): 3 Sit to Stand (QC): 3 Chair/Xfk-qq-Xakpi Xfer(QC): 3 Car Transfer (QC): 3 Gait Training Does the Patient Walk?: Yes Walk 10 feet (QC): 3 Walk 50 ft with 2 Turns(QC): 3 Walk 150 ft (QC): 88 Walking 10ft/uneven surface-QC: 3 Gait Assistive Device: FWW Wheelchair Training Does the Pt Use a Wheelchair?: No Wheel 50 ft with 2 turns (QC): 9 Wheel 150 ft (QC): 9 Type of Wheelchair: Manual Stair Training #of Steps: 1 1 Step (curb) (QC): 3 4 Steps (QC): 88 12 Steps (QC): 9 Balance Picking up an Object (QC): 3 ADL-Treatment Eating (QC): 6 (brings cup to mouth and drinks IND.) Oral Hygiene (QC): 4 (Pt completes oral hygiene at sink with SBA-CGA with FWW.) Shower/Bathe Self (QC): 7 (Based on pt report, pt has caregiver/ bath aide support 3-4 days per week. Pt states helper assists in/ out of shower and c ompletes all bathing tasks for pt.) Upper Body Dressing (QC): 7 (Per pt report, pt receives assist with bra donning. pt denies shirt off/ on) Lower Body Dressing (QC): 4 (SBA EOB-standing. Pt doffs in stance, pt dons while in seated. CGA in stance to door puller hips.) On/Off Footwear (QC): 4 (CGA in stance to complete shoe don/ doffing. Pt states she does not wear socks.) Toileting Hygiene (QC): 9 (Pt states she has bedee which provides hygiene and drying to bottom.) Toilet Transfer (QC): 4 (Pt states she has high-rise toilet at home, states she would be able to complete toilet transfer to [facility]'s standard toilet.Pt completes from FWW to standard stool with CGA, pt utilizes grab bars during sit to stand. Pt denies need for commode for comfort.) Assessment/Plan Assessment and Plan Assess & Plan/Chief Complaint Assessment: Recurrent syncope Recurrent falls Orthostatic hypotension Hypokalemia Hypertension history holding hydrochlorothiazide History of C. difficile colitis Confusion Plan: Inpatient rehab protocol Orthostasis management Appreciate cardiology Postage Machine Operator confusion Repeat SLUMS (1) Debility (2) Fall on same level Status: Acute (3) Rhabdomyolysis Status: Acute (4) Vertigo Status: Acute (5) Volume depletion Status: Acute (6) Dementia Status: Acute (7) Confusion Status: Acute (8) C. difficile colitis Status: Acute (9) Altered mental state Status: Acute (10) Orthostasis RASHEED BISHOP DO Nov 04, 2019 08:24 POS
--- NOTE | 2019-11-04 09:58 | Progress Note - Cardiology ---
Cardiology SOAP Progress Note Subjective: Lying in bed. Daughter from [place] (Physical therapist) at the bedside. Pt denies any syncope or near syncope. Daughter reports she has c/o dizziness and unsteadiness this morning while sitting up on the side of the bed and while up walking this morning. Objective: I&O/Vital Signs 11/05/19 11/05/19 11/05/19 11/05/19 06:00 06:42 08:10 12:42 Temp 37.2 Pulse 51 49 63 Resp 16 B/P (MAP) 149/72 (97) Pulse Ox 95 O2 Delivery Room Air Room Air 11/05/19 00:00 Intake Total 750 ml Balance 750 ml Weight (Pounds): 170 Weight (Ounces): 0.0 Weight (Calculated Kilograms): 77.455736 Constitutional: AAO x 3, well-developed, well-nourished Respiratory: No accessory muscle use, No respiratory distress; chest expansion is symmetric, chest is bilaterally symmetric, lungs clear to auscultation Cardiovascular: regular rate-rhythm; No JVD; S1 and S2 Gastrointestional: No tender; soft, round, audible bowel sounds Extremities: no lower extremity edema bilateral Neurologic/Psychiatric: other (poor memory, alert and orientd x 3, moves all limbs equally) Skin: No rash on exposed areas, No ulcerations on exposed areas Results/Procedures: Labs Laboratory Tests 11/05/19 05:30: Sodium Level 142, Potassium Level 3.9, Chloride Level 110H, Carbon Dioxide Level 22, Anion Gap 10, Blood Urea Nitrogen 20H, Creatinine 0.89, Estimat Glomerular Filtration Rate 60, BUN/Creatinine Ratio 22, Glucose Level 88, Calcium Level 10.3H, Magnesium Level 1.8 A/P: Assessment: Syncopal episodes of undetermined etiology - possibly r/t orthostatic hypotension Echo of 11/01/19: LVEF 60-65%, RVSP 27 mmHg Hypokalemia, likely due to chronic diuretic therapy HTN, by history Hardness of hearing Plan: * Dr. Rodrigues has had long and detailed discussion with her, a daughter who was by bedside, and a daughter (a nurse) who was on the phone. We went over potential etiologies of syncope and our eval and treatment plan * Continue tele to eval for judson-arrhythmia. Consider ILR if no arrhythmia seen during hospitalization * Monitor lab * Further recs will be based on her hospital course REYNALDO SPENCE Nov 04, 2019 09:58 POS
[2019-11-04] MEDS: LACTOBACILLUS ACIDOPHILUS (PROBIOTIC) CAPSULE PO SCH ×2 (10:04→20:11)
[2019-11-04] MEDS: DOCUSATE SODIUM 100 MG (COLACE) CAP PO SCH ×2 (10:04→20:17)
[2019-11-04] MEDS: FENOFIBRATE 134 MG (LOFIBRA) CAPSULE PO SCH (10:04)
[2019-11-04] MEDS: DICLOFENAC 1% GEL 100 GM (VOLTAREN) TUBE TOP SCH ×4 (10:05→20:17)
[2019-11-04] MEDS: metroNIDAZOLE 250 MG (FLAGYL) TAB PO SCH ×2 (10:05→20:11)
[2019-11-04] MEDS: POLYETHYLENE GLYCOL 17 GM (MIRALAX) PACK PO SCH ×2 (10:05→20:17)
[2019-11-04] MEDS: ALLOPURINOL 100 MG (ZYLOPRIM) TAB PO SCH (10:05)
[2019-11-04] MEDS: SENNA W/DOCUSATE (SENOKOT S) TABLET PO SCH ×2 (10:05→20:17)
--- NOTE | 2019-11-04 11:08 | Physical Therapy Daily Note ---
PT Daily Note-Current Subjective Pt. up in recliner , agrees to Rx. Dtr who is a PT present. Pt. with some anxiety and expresses fear at times edwin with sit to stand or position changes Pain Location: No Pain Reported Mental Status Patient Orientation: Person, Place, Time Transfers SCALE: Activities may be completed with or without assistive devices. 9-Hfcbmyncuy-ywatkub completes the activity by him/herself with no assistance from a helper. 5-Set-up or Clean-up Assistance-helper sets up or cleans up; patient completes activity. [place] assists only prior to or following the activity. 4-Supervision or Touching Assistance-helper provides verbal cues and/or touching/steadying and/or contact guard assistance as patient completes activi ty. Assistance may be provided throughout the activity or intermittently. 3-Partial/Moderate Assistance-helper does LESS THAN HALF the effort. [place] lifts, holds or supports trunk or limbs, but provides less than half the effort. 2-Substantial/Maximal Assistance-helper does MORE THAN HALF the effort. [place] lifts or holds trunk or limbs and provides more than half the effort. 2-[place]-npnzjq does ALL the effort. Patient does none of the effort to complete the activity. Or, the assistance of 2 or more helpers is required for the patient to complete the activity. If activity was not attempted, code reason: 7-Patient Refused. 9-Not Applicable-not attempted and the patient did not perform the activity before the current illness, exacerbation or injury. 10-Not Attempted due to Environmental Limitations-(lack of equipment, weather restraints, etc.). 88-Not Attempted due to Medical Conditions or Safety Concerns. Roll Left & Right (QC): 6 Sit to Lying (QC): 6 Lying to Sitting/Side of Bed(Q: 6 Sit to Stand (QC): 5 needs cues or instruction at times for technique and position Gait Training Does the Patient Walk?: Yes Walk 10 feet (QC): 4 Walk 50 ft with 2 Turns(QC): 4 Walk 150 ft (QC): 4 Gait Persons Needed: 1 Gait Assistive Device: FWW Exercises Supine Ex: Bridging, Ankle pumps, Quad Set, Rolling, Glut sets, Heel Slides, Short Arc Quads, Scooting, Straight leg raise, Hip abd/add Supine Reps: 12 NuStep Minutes: 10 NuStep Workload: 3 Treatments BP peyioab146/90 HR 65 O2sats 96% standing 136/86 Assessment Current Status: Good Progress PT Care Home Goals Care Home Goals PT Care Home Goals Time Frame: Nov 30, 2019 Roll Left & Right (QC): 5 Sit to Lying (QC): 5 Lying-Sitting on Side/Bed(QC): 5 Sit to Stand (QC): 5 Chair/Wue-mj-Rmpea Xfer(QC): 5 Toilet Transfer (QC): 5 Car Transfer (QC): 5 Does the Patient Walk: Yes Walk 10 feet (QC): 5 Walk 50ft with 2 Turns (QC): 5 Walk 150 ft (QC): 5 Walking 10ft on Uneven Surface: 5 1 Step (curb) (QC): 5 4 Steps (QC): 5 12 Steps (QC): 9 Picking up an Object (QC): 5 Does the Pt use WC or Scooter?: No Type: N/A Type: N/A PT Plan Treatment/Plan Treatment Plan: Continue Plan of Care Treatment Plan: Bed Mobility, Concurrent Therapy, Education, Functional Activity Merry, Functional Strength, Group Therapy, Gait, Safety, Therapeutic Exercise, Transfers Treatment Duration: Nov 30, 2019 Frequency: At least 5 of 7 days/Wk (IRF) Estimated Hrs Per Day: 1.5 hours per day Patient and/or Family Agrees t: Yes Safety Risks/Education Patient Education: Gait Training, Transfer Techniques, Correct Positioning, Disease Process, Safety Issues Teaching Recipient: Patient Teaching Methods: Demonstration, Discussion Response to Teaching: Verbalize Understanding, Return Demonstration, Reinforcement Needed Time/GCodes Time In: 1015 Time Out: 1100 Total Billed Treatment Time: 45 Total Billed Treatment 1,EX20m,GT13m,FA12m KATRINA CHEATHAM METAL SPRAYER Nov 04, 2019 11:08 POS
--- NOTE | 2019-11-04 11:58 | Physical Therapy Daily Note ---
PT Daily Note-Current Subjective Pt. agrees to Rx and states she can do everything she was doing at home before but she needs to work on her endurance. Also discussed pts use of extended O2 tubing and safety doing so Pain Location: No Pain Reported Comment: shares that she has some discomfort in hamstrings and likes to stretch Mental Status Patient Orientation: Normal For Age Attachments: Oxygen (2L) Transfers SCALE: Activities may be completed with or without assistive devices. 3-Dkdeqfppyf-ilhfhth completes the activity by him/herself with no assistance from a helper. 5-Set-up or Clean-up Assistance-helper sets up or cleans up; patient completes activity. [place] assists only prior to or following the activity. 4-Supervision or Touching Assistance-helper provides verbal cues and/or touching/steadying and/or contact guard assistance as patient completes activity. Assistance may be provided throughout the activity or intermittently. 3-Partial/Moderate Assistance-helper does LESS THAN HALF the effort. [place] lifts, holds or supports trunk or limbs, but provides less than half the effort. 2-Substantial/Maximal Assistance-helper does MORE THAN HALF the effort. [place] lifts or holds trunk or limbs and provides more than half the effort. 4-Zykslrlcd-xvzoog does ALL the effort. Patient does none of the effort to complete the activity. Or, the assistance of 2 or more helpers is required for the patient to complete the activity. If activity was not attempted, code reason: 7-Patient Refused. 9-Not Applicable-not attempted and the patient did not perform the activity before the current illness, exacerbation or injury. 10-Not Attempted due to Environmental Limitations-(lack of equipment, weather restraints, etc.). 88-Not Attempted due to Medical Conditions or Safety Concerns. Roll Left & Right (QC): 5 Sit to Lying (QC): 5 Lying to Sitting/Side of Bed(Q: 5 Sit to Stand (QC): 5 Chair/Mcr-sx-Dqewj Xfer(QC): 5 Gait Training Does the Patient Walk?: Yes Walk 10 feet (QC): 5 Walk 50 ft with 2 Turns(QC): 5 Walk 150 ft (QC): 5 Gait Persons Needed: 1 Gait Assistive Device: FWW emphasis on gait with extended O2 tubing as pt. had used extended tubing at home but not in conjunction with FWW Exercises Supine Ex: Bridging, Ankle pumps, Quad Set, Rolling, Glut sets, Heel Slides, Short Arc Quads, Scooting, Straight leg raise, Hip abd/add Supine Reps: 15 NuStep Minutes: 12 NuStep Workload: 3 Assessment Current Status: Good Progress increased safety for gait with device and O2 PT Resident Care Technician Goals Resident Care Technician Goals PT Senior Living Goals Time Frame: Nov 30, 2019 Roll Left & Right (QC): 5 Sit to Lying (QC): 5 Lying-Sitting on Side/Bed(QC): 5 Sit to Stand (QC): 5 Chair/Ekt-xo-Rqeit Xfer(QC): 5 Toilet Transfer (QC): 5 Car Transfer (QC): 5 Does the Patient Walk: Yes Walk 10 feet (QC): 5 Walk 50ft with 2 Turns (QC): 5 Walk 150 ft (QC): 5 Walking 10ft on Uneven Surface: 5 1 Step (curb) (QC): 5 4 Steps (QC): 5 12 Steps (QC): 9 Picking up an Object (QC): 5 Does the Pt use WC or Scooter?: No Type: N/A Type: N/A PT Plan Treatment/Plan Treatment Plan: Continue Plan of Care Treatment Plan: Bed Mobility, Concurrent Therapy, Education, Functional Activity Merry, Functional Strength, Group Therapy, Gait, Safety, Therapeutic Exercise, Transfers Treatment Duration: Nov 30, 2019 Frequency: At least 5 of 7 days/Wk (IRF) Estimated Hrs Per Day: 1.5 hours per day Patient and/or Family Agrees t: Yes Safety Risks/Education Patient Education: Gait Training, Transfer Techniques, Correct Positioning, Disease Process, Safety Issues Teaching Recipient: Patient Teaching Methods: Demonstration, Discussion Response to Teaching: Verbalize Understanding, Return Demonstration, Reinforcement Needed Time/GCodes Time In: 1100 Time Out: 1200 Total Billed Treatment Time: 60 Total Billed Treatment 1,GT25m,FA15m,EX20m KATRINA CHEATHAM MOTOR VEHICLE TECHNICIAN Nov 04, 2019 11:57 POS
--- NOTE | 2019-11-04 12:04 | Occupational Ther Daily Note ---
OT Current Status-Daily Note Subjective Pt seen supine in bed, family member present. Pt denies pain, agreeable to OT tx session. ADL-Treatment Therapy Code Descriptions/Definitions Functional [place] Measure: 0=Not Assessed/NA 4=Minimal Assistance 1=Total Assistance 5=Supervision or Setup 2=Maximal Assistance 6=Modified [place] 3=Moderate Assistance 7=Complete IndependenceSCALE: Activities may be completed with or without assistive devices. 5-Cypxysbddp-sawdasf completes the activity by him/herself with no assistance from a helper. 5-Set-up or Clean-up Assistance-helper sets up or cleans up; patient completes activity. [place] assists only prior to or following the activity. 4-Supervision or Touching Assistance-helper provides verbal cues and/or touching/steadying and/or contact guard assistance as patient completes activity. Assistance may be provided throughout the activity or intermittently. 3-Partial/Moderate Assistance-helper does LESS THAN HALF the effort. [place] lifts, holds or supports trunk or limbs, but provides less than half the effort. 2-Substantial/Maximal Assistance-helper does MORE THAN HALF the effort. [place] lifts or holds trunk or limbs and provides more than half the effort. 7-Mpwwfbaiv-oubknd does ALL the effort. Patient does none of the effort to complete the activity. Or, the assistance of 2 or more helpers is required for the patient to complete the activity. If activity was not attempted, code reason: 7-Patient Refused. 9-Not Applicable-not attempted and the patient did not perform the activity before the current illness, exacerbation or injury. 10-Not Attempted due to Environmental Limitations-(lack of equipment, weather restraints, etc.). 88-Not Attempted due to Medical Conditions or Safety Concerns. Upper Body Dressing (QC): 3 (Pt requires mod A for bra donning, min A and cues for UB shirt.) Lower Body Dressing (QC): 3 (Pt requires assist threading BLE for breif and pants, able to pull up over hips with CGA at [facility].) Other Treatment Pt seen in bed, repeats self multiple times this morning. Bed mob with IND and encouragement. All dressing tasks EOB with cues for initiation. Pt states she does not put pants/ underwear on self as she has helper. Upon further questioning, pt agrees she completes LB dressing on days helper is not present. Pt completes sit to stand and ambulates to recliner chair with CGA. pt left in recliner chair with chair alarm on, call light in reach, all needs met. Education OT Patient Education: Correct positioning, Modified ADL techniques, Safety issues Teaching Recipient: Patient Teaching Methods: Demonstration, Discussion Response to Teaching: Verbalize Understanding, Return Demonstration OT Short Term Goals Short Term Goals Oral hygiene: 6 Lower body dressin Putting on/taking off footwear: 6 OT Longterm Goals Longterm Goals Time Frame: Nov 15, 2019 Eating (QC): 6 Oral Hygiene (QC): 6 Toileting Hygiene (QC): 4 Shower/Bathe Self (QC): 4 Upper Body Dressing (QC): 4 Lower Body Dressing (QC): 6 On/Off Footwear (QC): 6 Additional Goals: 1-Demonstrate ADL Tasks, 2-Verbalize Understanding, 3- ImproveStrength/Merry 1=Demonstrate adherence to instructed precautions during ADL tasks. 2=Patient will verbalize/demonstrate understanding of assistive devices/modifications for ADL. 3=Patient will improve strength/tolerance for activity to enable patient to perform ADL's. OT Education/Plan Problem List/Assessment Assessment: Decreased Activ Tolerance, Decreased Safety Aware, Decreased UE Strength, Impaired Cognition, Impaired Funct Balance, Impaired I ADL's, Impaired Self-Care Skills Discharge Recommendations Plan/Recommendations: Continue POC Treatment Plan/Plan of Care Treatment,Training & Education: Yes Patient would benefit from OT for education, treatment and training to promote independence in ADL's, mobility, safety and/or upper extremity function for ADL's. Plan of Care: ADL Retraining, Caregiver Training, Functional Mobility, Group Exercise/Act as Ind, UE Funct Exercise/Act Treatment Duration: Nov 15, 2019 Frequency: At least 5 of 7 days/Wk (IRF) Estimated Hrs Per Day: 1.5 hours per day Agreement: Yes Rehab Potential: Fair Time/GCodes Start Time: 10:00 Stop Time: 10:15 Total Time Billed (hr/min): 15 Billed Treatment Time 1, ADL (15) TROY STRATTON OTR Nov 04, 2019 12:04 POS
[2019-11-04] MEDS ORDERED: KCL 20 MEQ TAB (K-DUR) PO NR (13:00)
[2019-11-04] MEDS: ENOXAPARIN 40 MG/0.4 ML (LOVENOX) SYR SC SCH (13:47)
--- NOTE | 2019-11-04 14:31 | Progress Note - Cardiology ---
Cardiology SOAP Progress Note Subjective: No cp or palp or syncope or shortness of breath No significant postural dizziness since adm Objective: I&O/Vital Signs 11/04/19 11/04/19 11/04/19 11/04/19 06:45 07:00 08:10 13:00 Temp 37.1 Pulse 57 84 60 Resp 18 B/P (MAP) 147/74 (98) Pulse Ox 95 O2 Delivery Room Air Room Air 11/04/19 00:00 Intake Total 620 ml Balance 620 ml Weight (Pounds): 170 Weight (Ounces): 0.0 Weight (Calculated Kilograms): 77.051883 Constitutional: AAO x 3, well-developed, well-nourished Respiratory: No accessory muscle use, No respiratory distress; chest expansion is symmetric, chest is bilaterally symmetric, lungs clear to auscultation Cardiovascular: regular rate-rhythm; No JVD; S1 and S2 Gastrointestional: No tender; soft, round, audible bowel sounds Extremities: no lower extremity edema bilateral Neurologic/Psychiatric: other (poor memory, alert and orientd x 3, moves all limbs equally) Skin: No rash on exposed areas, No ulcerations on exposed areas Results/Procedures: Labs Laboratory Tests 11/04/19 05:35: Sodium Level 142, Potassium Level 3.5L, Chloride Level 109H, Carbon Dioxide Level 25, Anion Gap 8, Blood Urea Nitrogen 17, Creatinine 0.81, Estimat [place] merular Filtration Rate > 60, BUN/Creatinine Ratio 21, Glucose Level 91, Calcium Level 10.5H, Corrected Calcium 11.0H, Total Bilirubin 0.4, Aspartate Amino Transf (AST/SGOT) 42H, Alanine Aminotransferase (ALT/SGPT) 25, Alkaline Phosphatase 55, Total Protein 5.8L, Albumin 3.4 11/04/19 06:35: White Blood Count 4.6, Red Blood Count 3.72L, Hemoglobin 11.8, Hematocrit 38, Mean Corpuscular Volume 101H, Mean Corpuscular Hemoglobin 32, Mean Corpuscular Hemoglobin Concent 31L, Red Cell Distribution Width 15.3H, Platelet Count 123L, Mean Platelet Volume 11.5H, Neutrophils (%) (Auto) 67, Lymphocytes (%) (Auto) 20, Monocytes (%) (Auto) 10, Eosinophils (%) (Auto) 2, Basophils (%) (Auto) 1, Neutrophils # (Auto) 3.1, Lymphocytes # (Auto) 0.9L, Monocytes # (Auto) 0.5, Eosinophils # (Auto) 0.1, Basophils # (Auto) 0.0 Laboratory Tests 11/03/19 05:59 11/04/19 05:35 11/04/19 06:35 A/P: Assessment: Syncopal episodes of undetermined etiology - possibly r/t orthostatic hypotension Echo of 11/01/19: LVEF 60-65%, RVSP 27 mmHg Hypokalemia, likely due to chronic diuretic therapy HTN, by history Hardness of hearing Plan: * K still low. Replenish * Continue tele for now * Monitor labs * I answered CV-related questions from and from a daughter who was by her bed side today BARBARA PERRY MD FACP FAC CCDS Nov 04, 2019 14:31 POS
--- NOTE | 2019-11-04 15:14 | NUR ---
Initial Assessment Patient was admitted to ARU 11/01/19 from [facility] for debility. Met with patient and her daughter Park Perez who is here from [facility] as a support to patient. Prior to hospitalization the patient resided home alone with in-home assistance through [employer] [facility]. DME: Has FWW x2, bidet toilet, med alert, shower seat, bathroom grab bars, lift chair. HHC: History with [facility], patient/family indicated as preferred at this time. [facility] SERVICES: [facility] [employer] [facility] Block Bolter Mule Operator/Lavern Wilde. or Desk: [phone]. Dogymi-Wzrzsbfkw-Ujgfdviq. Patient describes assistance for laundry, housekeeping, and personal shower. Shy stated the services are arranged by [facility] through [facility] In-Home Support. PHARMACY: [facility] PCP: Dr. Tom Alfred INSURED: Medicare, Blue Cross supplement, [facility] [employer] [facility] CONTACTS: Patient has 5 children, they following have been provided regarding contact network. *Shy Lott, Daughter/ARIANA [facility] [phone] (*, primary contact) Papito Sun, son Panfilo GUADALUPE [phone] Park Perez, Daughter [facility] [phone] Patient and Park were aware of the weekly team conference. Veneer Supervisor also spoke to Shy/ARIANA on the phone while in the room to get [facility] information. Shy has asked to be the primary contact for all information and updates, she is RN working in Risk Management at a [facility]. Shy understood that we will review patient this Monday with timely update re target discharge to follow. It will be butler for family to know when patient might return home. Shy has already approached YRN/Lavern Wilde about additional support hours for patient once home, [facility] will need to establish a team to provide hours/assistance for patient.
--- NOTE | 2019-11-04 15:41 | Occupational Ther Daily Note ---
OT Current Status-Daily Note Subjective Pt seen in bed post-lunch. Pt agrees to OT tx session with sponge bath as planned. Pt denies pain. ADL-Treatment Therapy Code Descriptions/Definitions Functional Elizabeth Measure: 0=Not Assessed/NA 4=Minimal Assistance 1=Total Assistance 5=Supervision or Setup 2=Maximal Assistance 6=Modified Elizabeth 3=Moderate Assistance 7=Complete IndependenceSCALE: Activities may be completed with or without assistive devices. 9-Fmyijkiphx-qxfvitn completes the activity by him/herself with no assistance from a helper. 5-Set-up or Clean-up Assistance-helper sets up or cleans up; patient completes activity. [place] assists only prior to or following the activity. 4-Supervision or Touching Assistance-helper provides verbal cues and/or touching/steadying and/or contact guard assistance as patient completes activity. Assistance may be provided throughout the activity or intermittently. 3-Partial/Moderate Assistance-helper does LESS THAN HALF the effort. [place] lifts, holds or supports trunk or limbs, but provides less than half the effort. 2-Substantial/Maximal Assistance-helper does MORE THAN HALF the effort. [place] lifts or holds trunk or limbs and provides more than half the effort. 5-Cllkhnwns-xtpiad does ALL the effort. Patient does none of the effort to complete the activity. Or, the assistance of 2 or more helpers is required for the patient to complete the activity. If activity was not attempted, code reason: 7-Patient Refused. 9-Not Applicable-not attempted and the patient did not perform the activity before the current illness, exacerbation or injury. 10-Not Attempted due to Environmental Limitations-(lack of equipment, weather restraints, etc.). 88-Not Attempted due to Medical Conditions or Safety Concerns. Eating (QC): 6 Oral Hygiene (QC): 4 (SBA at sink with FWW) Shower/Bathe Self (QC): 3 (With use of LHS and warm cloths/ cues given to pt, pt completes all with min assist (bottom and back)) Upper Body Dressing (QC): 4 (cues for bra and shirt donning. Pt completes bra with adaptive technique ) Lower Body Dressing (QC): 4 (Cues for football scout use for underwear donning, pt able to complete pant donning with CGA in stance.) Toileting Hygiene (QC): 1 (Bottom hygiene TD, pt attempts and not able to reach. Pt has self cleaning toilet at home. ) on/ off footwear: 3: min A for shoe donning, pt states does not wear socks at home. Other Treatment Pt completes ADLs in room. Pt intermittently gasps (primarily when sit to stand), pt's daughter states pt has had increased anxiety since passed. pt completes kitchen mobility with SBA, able to complete gathering materials from fridge, place in microwave, and into fridge with good safety awareness. Pt returns to room with call light in reach, all needs met, daughter present. Education OT Patient Education: Correct positioning, Energy conservation, Modified ADL techniques, Progress toward Goal/Update tx plan, Purpose of tx/functional activities, Safety issues, Transfer techniques, Use of adapted equipment Teaching Recipient: Patient, Family Teaching Methods: Demonstration, Discussion Response to Teaching: Verbalize Understanding, Return Demonstration, Reinforcement Needed OT Short Term Goals Short Term Goals Oral hygiene: 6 Lower body dressin Putting on/taking off footwear: 6 OT Barrel Raiser Goals Barrel Raiser Goals Time Frame: Nov 15, 2019 Eating (QC): 6 Oral Hygiene (QC): 6 Toileting Hygiene (QC): 4 Shower/Bathe Self (QC): 4 Upper Body Dressing (QC): 4 Lower Body Dressing (QC): 6 On/Off Footwear (QC): 6 Additional Goals: 1-Demonstrate ADL Tasks, 2-Verbalize Understanding, 3-Improv eStrength/Merry 1=Demonstrate adherence to instructed precautions during ADL tasks. 2=Patient will verbalize/demonstrate understanding of assistive devices/modifications for ADL. 3=Patient will improve strength/tolerance for activity to enable patient to p erform ADL's. OT Education/Plan Problem List/Assessment Assessment: Decreased Activ Tolerance, Decreased Safety Aware, Decreased UE Strength, Dependent Transfers, Impaired Cognition, Impaired Funct Balance, Imp aired I ADL's, Impaired Self-Care Skills Discharge Recommendations Plan/Recommendations: Continue POC Treatment Plan/Plan of Care Treatment,Training & Education: Yes Patient would benefit from OT for education, treatment and training to promote independence in ADL's, mobility, safety and/or upper extremity function for ADL's. Plan of Care: ADL Retraining, Caregiver Training, Functional Mobility, Group Exercise/Act as Ind, UE Funct Exercise/Act Treatment Duration: Nov 15, 2019 Frequency: At least 5 of 7 days/Wk (IRF) Estimated Hrs Per Day: 1.5 hours per day Agreement: Yes Rehab Potential: Fair Time/GCodes Start Time: 13:00 Stop Time: 14:15 Total Time Billed (hr/min): 75 Billed Treatment Time 1, ADL 4, FA (75) TROY STRATTON OTR Nov 04, 2019 15:41 POS
--- NOTE | 2019-11-04 15:56 | NUR ---
RD ASSESSMENT PMHx: HTN; c-diff PT INTERACTION: Pt was awake and pleasant during nutrition assessment. Pt states current appetite is "not as good as it used to be" but was worse prior to admit. Note pt avg PO intake of 75% x2d, per chart review. Pt states following a regular diet at home and has no issues with chewing/swallowing food at this time. Pt states no recent issues with n/v/c/d at this time. Note last BM was 11/03 and pt currently on bowel regimen of colace BID; miralax BID; and senna BID, per chart review. Pt states no recent wt changes. Note unable to determine recent wt hx, per chart review. ABNORMAL NUTRITION-RELATED LAB VALUES LOW: K 3.5; Pro 5.8 HIGH: Cl 109; Ca 10.5; AST 42 Est. kcal needs: 6240-2216 kcal | 15-20 kcal/kg Est. Pro needs: 70-88 g Pro | 0.8-1.0 g Pro/kg PES STATEMENT: Given pt's PO intake, no nutrition diagnosis at this time (NO-1.1) INTERVENTION: Continue with current diet order of Regular diet. Will continue to follow and reassess as pt needs and status change. MONITOR/EVALUATE: PO Intake; Plan of Care; Hydration Status; Weight Status; Lab Values Sukhi Bahena, , RD, LD
--- NOTE | 2019-11-04 16:01 | Physical Therapy Daily Note ---
PT Daily Note-Current Subjective Patient agrees to PT. Family present. Mental Status Patient Orientation: Normal For Age Transfers SCALE: Activities may be completed with or without assistive devices. 4-Ykejjupymx-dotosvc completes the activity by him/herself with no assistance from a helper. 5-Set-up or Clean-up Assistance-helper sets up or cleans up; patient completes activity. [place] assists only prior to or following the activity. 4-Supervision or Touching Assistance-helper provides verbal cues and/or touching/steadying and/or contact guard assistance as patient completes activity. Assistance may be provided throughout the activity or intermittently. 3-Partial/Moderate Assistance-helper does LESS THAN HALF the effort. [place] lifts, holds or supports trunk or limbs, but provides less than half the effort. 2-Substantial/Maximal Assistance-helper does MORE THAN HALF the effort. [place] lifts or holds trunk or limbs and provides more than half the effort. 4-Dlfuzrfrw-vzeckg does ALL the effort. Patient does none of the effort to complete the activity. Or, the assistance of 2 or more helpers is required for the patient to complete the activity. If activity was not attempted, code reason: 7-Patient Refused. 9-Not Applicable-not attempted and the patient did not perform the activity before the current illness, exacerbation or injury. 10-Not Attempted due to Environmental Limitations-(lack of equipment, weather restraints, etc.). 88-Not Attempted due to Medical Conditions or Safety Concerns. Roll Left & Right (QC): 6 Sit to Lying (QC): 6 Lying to Sitting/Side of Bed(Q: 6 Sit to Stand (QC): 5 Chair/Tiv-sf-Opvwo Xfer(QC): 5 Toilet Transfer (QC): 5 Car Transfer (QC): 5 Gait Training Does the Patient Walk?: Yes Distance: 250' x 1/150' x 1 Walk 10 feet (QC): 5 Walk 50 ft with 2 Turns(QC): 5 Walk 150 ft (QC): 5 Gait Assistive Device: FWW steady, functional with no deviation Balance Picking up an Object (QC): 5 (in seated position) Exercises Supine Ex: Ankle pumps, Heel Slides, Straight leg raise Supine Reps: 15 Seated Therapy Exercises: Ankle pumps, Long arc quads Seated Reps: 15 NuStep Minutes: 20 NuStep Workload: 3 (to increase functional strength and mobility) Assessment Patient improving with treatment plan. She appears to be very anxious with minimal stimuli. Family reports this is her baseline. PT to increase activity as tolerated. PT Line Out Worker Goals Correction Goals PT Correction Goals Time Frame: Nov 30, 2019 Roll Left & Right (QC): 5 Sit to Lying (QC): 5 Lying-Sitting on Side/Bed(QC): 5 Sit to Stand (QC): 5 Chair/Tyu-zi-Shrep Xfer(QC): 5 Toilet Transfer (QC): 5 Car Transfer (QC): 5 Does the Patient Walk: Yes Walk 10 feet (QC): 5 Walk 50ft with 2 Turns (QC): 5 Walk 150 ft (QC): 5 Walking 10ft on Uneven Surface: 5 1 Step (curb) (QC): 5 4 Steps (QC): 5 12 Steps (QC): 9 Picking up an Object (QC): 5 Does the Pt use WC or Scooter?: No Type: N/A Type: N/A PT Plan Treatment/Plan Treatment Plan: Continue Plan of Care Treatment Plan: Bed Mobility, Concurrent Therapy, Education, Functional Activity Merry, Functional Strength, Group Therapy, Gait, Safety, Therapeutic Exercise, Transfers Treatment Duration: Nov 30, 2019 Frequency: At least 5 of 7 days/Wk (IRF) Estimated Hrs Per Day: 1.5 hours per day Patient and/or Family Agrees t: Yes Time/GCodes Time In: 1500 Time Out: 1545 Total Billed Treatment Time: 45 Total Billed Treatment 1 visit EX x 2 25 min FA 20 min JANN POWELL PT Nov 04, 2019 16:01 POS
[2019-11-04 18:00] VITALS: BP 149/75
[2019-11-04] MEDS: MELATONIN 3 MG TABLET PO PRN (20:11)
[2019-11-05 06:00] VITALS: BP 149/72
[2019-11-05 06:26] LABS: CALCIUM 10.3 MG/DL (8.5-10.1); CREATININE SERUM 0.89 MG/DL (0.60-1.30); MAGNESIUM 1.8 MG/DL (1.6-2.4); POTASSIUM 3.9 MMOL/L (3.6-5.0)
[2019-11-05] MEDS: POLYETHYLENE GLYCOL 17 GM (MIRALAX) PACK PO SCH ×2 (09:37→20:17)
--- NOTE | 2019-11-05 10:18 | NUR ---
Concurrent Documentation Physician reportedly completed a referral with [facility] after rounding and discussion with patient's daughter at bedside, Park Perez. The primary criteria is indicated to be anxiety and family's report of how anxiousness interferes with patient's daily functioning. Discussed referral with [facility] Angélica Evans/Owen Gomez, provided foundation information including demographics. He will be coming to ARU to interview/screen patient for appropriate level of care, inpatient vs outpatient services. Assist as appropriate.
--- NOTE | 2019-11-05 10:34 | PM&R Progress Note ---
Subjective HPI/CC On Admission Date Seen by Provider: Nov 05, 2019 Time Seen by Provider: 09:00 Subjective/Events-last exam Anxiety has become quite overwhelming. Senior behavioral unit screened her and feels like she is appropriate for outpatient. Pt will overall have quite the complexity of returning home if she is that anxious. Feels like she needs her daughter at her side all the time and she doesn't live here in town. No orthostasis noted Bowels are moving Maintained on telemetry Denies any pain otherwise Check meds and labs Reviewed therapy notes Conferred with hris developer of Systems General: Fatigue Neurological: Weakness, Numbness, Confusion Objective Exam Vital Signs Vital Signs Date Time Temp Pulse Resp B/P (MAP) Pulse Ox O2 Delivery O2 Flow Rate FiO2 11/06/19 12:48 65 11/06/19 09:00 Room Air 11/06/19 06:28 36.9 16 149/78 (101) 96 Capillary Refill : General Appearance: No Apparent Distress, WD/WN, Chronically ill HEENT: PERRL/EOMI, Normal ENT Inspection, Pharynx Normal Neck: Full Range of Motion, Normal Inspection, Non Tender, Supple, Carotid Bruit Respiratory: Chest Non Tender, Lungs Clear, Normal Breath Sounds, No Accessory Muscle Use, No Respiratory Distress Cardiovascular: Regular Rate, Rhythm, No Edema, No Gallop, No JVD, No Murmur, Normal Peripheral Pulses Gastrointestinal: Normal Bowel Sounds, No Organomegaly, No Pulsatile Mass, Non Tender, Soft Back: Normal Inspection, No CVA Tenderness, No Vertebral Tenderness Extremity: Normal Capillary Refill, Normal Inspection, Normal Range of Motion, Non Tender, No Calf Tenderness, No Pedal Edema Neurologic/Psychiatric: Alert, Oriented x3, No Motor/Sensory Deficits, Normal Mood/Affect, histology technologist II-XII Norm as Tested, Abnormal Gait, Disoriented Skin: Normal Color, Warm/Dry Lymphatic: No Adenopathy Results/Procedures Lab Patient resulted labs reviewed. FIM Transfers Therapy Code Descriptions/Definitions Functional [place] Measure: 0=Not Assessed/NA 4=Minimal Assistance 1=Total Assistance 5=Supervision or Setup 2=Maximal Assistance 6=Modified [place] 3=Moderate Assistance 7=Complete IndependenceSCALE: Activities may be completed with or without assistive devices. 1-Oqojgesepo-rolvpee completes the activity by him/herself with no assistance from a helper. 5-Set-up or Clean-up Assistance-helper sets up or cleans up; patient completes activity. [place] assists only prior to or following the activity. 4-Supervision or Touching Assistance-helper provides verbal cues and/or touching/steadying and/or contact guard assistance as patient completes a ctivity. Assistance may be provided throughout the activity or intermittently. 3-Partial/Moderate Assistance-helper does LESS THAN HALF the effort. [place] lifts, holds or supports trunk or limbs, but provides less than half the effort. 2-Substantial/Maximal Assistance-helper does MORE THAN HALF the effort. [place] lifts or holds trunk or limbs and provides more than half the effort. 9-Wsvvpoich-lkwsps does ALL the effort. Patient does none of the effort to complete the activity. Or, the assistance of 2 or more helpers is required for the patient to complete the activity. If activity was not attempted, code reason: 7-Patient Refused. 9-Not Applicable-not attempted and the patient did not perform the activity before the current illness, exacerbation or injury. 10-Not Attempted due to Environmental Limitations-(lack of equipment, weather restraints, etc.). 88-Not Attempted due to Medical Conditions or Safety Concerns. Roll Left to Right (QC): 6 Sit to Lying (QC): 6 Sit to Stand (QC): 5 Chair/Vol-sv-Bcwnk Xfer(QC): 5 Car Transfer (QC): 5 Gait Training Does the Patient Walk?: Yes Distance: 250' x 1/150' x 1 Walk 10 feet (QC): 5 Walk 50 ft with 2 Turns(QC): 5 Walk 150 ft (QC): 5 Walking 10ft/uneven surface-QC: 3 Gait Persons Needed: 1 Gait Assistive Device: FWW Wheelchair Training Does the Pt Use a Wheelchair?: No Wheel 50 ft with 2 turns (QC): 9 Wheel 150 ft (QC): 9 Type of Wheelchair: Manual Stair Training #of Steps: 1 1 Step (curb) (QC): 3 4 Steps (QC): 88 12 Steps (QC): 9 Balance Picking up an Object (QC): 5 (in seated position) ADL-Treatment Eating (QC): 6 Oral Hygiene (QC): 4 (SBA at sink with FWW) Shower/Bathe Self (QC): 3 (With use of LHS and warm cloths/ cues given to pt, pt completes all with min assist (bottom and back)) Upper Body Dressing (QC): 4 (cues for bra and shirt donning. Pt completes bra with adaptive technique ) Lower Body Dressing (QC): 4 (Cues for refinery operator light ends recovery use for underwear donning, pt able to complete pant donning with CGA in stance.) On/Off Footwear (QC): 4 (CGA in stance to complete shoe don/ doffing. Pt states she does not wear socks.) Toileting Hygiene (QC): 1 (Bottom hygiene TD, pt attempts and not able to reach. Pt has self cleaning toilet at home. ) Toilet Transfer (QC): 4 (Pt states she has high-rise toilet at home, states she would be able to complete toilet transfer to [facility]'s standard toilet.Pt completes from FWW to standard stool with CGA, pt utilizes grab bars during sit to stand. Pt denies need for commode for comfort.) Assessment/Plan Assessment and Plan Assess & Plan/Chief Complaint Assessment: Recurrent syncope Recurrent falls Orthostatic hypotension Hypokalemia Hypertension history holding hydrochlorothiazide History of C. difficile colitis Confusion Plan: Inpatient rehab protocol Orthostasis management Appreciate cardiology Brass Cutter confusion Repeat SLUMS Appreciate geriatric psych eval (1) Debility (2) Fall on same level Status: Acute (3) Rhabdomyolysis Status: Acute (4) Vertigo Status: Acute (5) Volume depletion Status: Acute (6) Dementia Status: Acute (7) Confusion Status: Acute (8) C. difficile colitis Status: Acute (9) Altered mental state Status: Acute (10) Orthostasis RASHEED BISHOP DO Nov 05, 2019 10:34
[2019-11-05] MEDS: FENOFIBRATE 134 MG (LOFIBRA) CAPSULE PO SCH (10:40)
[2019-11-05] MEDS: LACTOBACILLUS ACIDOPHILUS (PROBIOTIC) CAPSULE PO SCH ×2 (10:40→20:14)
[2019-11-05] MEDS: ALLOPURINOL 100 MG (ZYLOPRIM) TAB PO SCH (10:40)
[2019-11-05] MEDS: DOCUSATE SODIUM 100 MG (COLACE) CAP PO SCH ×2 (10:40→20:17)
[2019-11-05] MEDS: metroNIDAZOLE 250 MG (FLAGYL) TAB PO SCH ×2 (10:40→20:14)
[2019-11-05] MEDS: SENNA W/DOCUSATE (SENOKOT S) TABLET PO SCH ×2 (10:40→20:17)
[2019-11-05] MEDS: DICLOFENAC 1% GEL 100 GM (VOLTAREN) TUBE TOP SCH ×4 (10:41→20:18)
--- NOTE | 2019-11-05 12:05 | Occupational Ther Daily Note ---
OT Current Status-Daily Note Subjective Pt seen in bed, supine. Pt awake/ alert. Pt's daughter present at start of session. Pt states good night, pt agreeable to OT tx session with no c/o pain. ADL-Treatment Therapy Code Descriptions/Definitions Functional [place] Measure: 0=Not Assessed/NA 4=Minimal Assistance 1=Total Assistance 5=Supervision or Setup 2=Maximal Assistance 6=Modified [place] 3=Moderate Assistance 7=Complete IndependenceSCALE: Activities may be completed with or without assistive devices. 9-Kqgalcxgny-mwkpznc completes the activity by him/herself with no assistance from a helper. 5-Set-up or Clean-up Assistance-helper sets up or cleans up; patient completes activity. [place] assists only prior to or following the activity. 4-Supervision or Touching Assistance-helper provides verbal cues and/or touching/steadying and/or contact guard assistance as patient completes activity. Assistance may be provided throughout the activity or intermittently. 3-Partial/Moderate Assistance-helper does LESS THAN HALF the effort. [place] lifts, holds or supports trunk or limbs, but provides less than half the effort. 2-Substantial/Maximal Assistance-helper does MORE THAN HALF the effort. [place] lifts or holds trunk or limbs and provides more than half the effort. 4-Qwlxrhyyn-aubqtc does ALL the effort. Patient does none of the effort to complete the activity. Or, the assistance of 2 or more helpers is required for the patient to complete the activity. If activity was not attempted, code reason: 7-Patient Refused. 9-Not Applicable-not attempted and the patient did not perform the activity before the current illness, exacerbation or injury. 10-Not Attempted due to Environmental Limitations-(lack of equipment, weather restraints, etc.). 88-Not Attempted due to Medical Conditions or Safety Concerns. Eating (QC): 6 Oral Hygiene (QC): 4 (SBA during stance with FWW) Shower/Bathe Self (QC): 7 Upper Body Dressing (QC): 4 (min cues for initiation and SUP) Lower Body Dressing (QC): 4 (CGA in stance, cues for use of AE during donning.) on/ off footwear: 6 with shoe horn. Other Treatment Pt's daughter states anxiety during the evening yesterday, states consult with behavioral health. Bed mob IND. Pt completes dressing tasks EOB, completes with good endurance and safety. Pt ambulates to therapy gym with CGA and FWW, completes UE exercises with weighted 3# bar, torso twists with bar, and balance/ coordination tasks. Pt self-regulates pace and repetitions. Pt completes arm bike with min resistance for 10 min, pt talks throughout; fair endurance. Pt stands for ~5 minutes to complete fine motor/ cognitive game, pt reaches in all planes to return pegs to package. Pt returns to room, requests bed. Pt bed mob with SBA back to bed, daughter present. All needs met, call light in reach. Education OT Patient Education: Correct positioning, Exercise program, Modified ADL techniques, Safety issues, Transfer techniques, Use of adapted equipment Teaching Recipient: Patient Teaching Methods: Demonstration, Discussion Response to Teaching: Verbalize Understanding, Return Demonstration, Reinforcement Needed OT Short Term Goals Short Term Goals Oral hygiene: 6 Lower body dressin (met) Putting on/taking off footwear: 6 (met) OT Real Time Analyst Goals Real Time Analyst Goals Time Frame: Nov 15, 2019 Eating (QC): 6 (met) Oral Hygiene (QC): 6 Toileting Hygiene (QC): 4 Shower/Bathe Self (QC): 4 Upper Body Dressing (QC): 4 (met) Lower Body Dressing (QC): 6 On/Off Footwear (QC): 6 (met) Additional Goals: 1-Demonstrate ADL Tasks, 2-Verbalize Understanding, 3- ImproveStrength/Merry 1=Demonstrate adherence to instructed precautions during ADL tasks. 2=Patient will verbalize/demonstrate understanding of assistive devices/modifications for ADL. 3=Patient will improve strength/tolerance for activity to enable patient to perform ADL's. OT Education/Plan Problem List/Assessment Assessment: Decreased Activ Tolerance, Decreased Safety Aware, Decreased UE Strength, Impaired Cognition, Impaired Funct Balance, Impaired I ADL's, Impaired Self-Care Skills Discharge Recommendations Plan/Recommendations: Continue POC Treatment Plan/Plan of Care Treatment,Training & Education: Yes Patient would benefit from OT for education, treatment and training to promote independence in ADL's, mobility, safety and/or upper extremity function for ADL's. Plan of Care: ADL Retraining, Caregiver Training, Functional Mobility, Group Exercise/Act as Ind, UE Funct Exercise/Act Treatment Duration: Nov 15, 2019 Frequency: At least 5 of 7 days/Wk (IRF) Estimated Hrs Per Day: 1.5 hours per day Agreement: Yes Rehab Potential: Fair Time/GCodes Start Time: 09:15 Stop Time: 10:45 Total Time Billed (hr/min): 90 Billed Treatment Time 1, ADL 2 (30), EX 4 (60)= (90) TROY STRATTON OTR Nov 05, 2019 12:05 POS
[2019-11-05] MEDS: ENOXAPARIN 40 MG/0.4 ML (LOVENOX) SYR SC SCH (13:45)
--- NOTE | 2019-11-05 14:43 | NUR ---
SS Concurrent Documentation [facility] Owen Gomez completed interview/assessment with patient. Plan is that she will complete her stay on ARU and will enter the [facility] outpatient program upon discharge home. It was discovered during exploration of benefits that patient was enrolled to change from Medicare to [facility] Medicare replacement November 20, 2019. Owen spoke with family about this to explore whether this was desired and had been purposely pursued. He reports that daughter/DPOA is getting patient switched back to regular Medicare. Mr. Gomez has contacted Dr. Segundo of his recommendation to increase patient present anxiety Rx. Nadine Nick participated throughout as appropriate and was fully updated by Mr. Millers.
--- NOTE | 2019-11-05 15:11 | Physical Therapy Daily Note ---
PT Daily Note-Current Subjective Patient agrees to PT. Family present. Pain Numeric Pain Scale: 0-No Pain Location: No Pain Reported Mental Status Patient Orientation: Person, Time, Situation Transfers SCALE: Activities may be completed with or without assistive devices. 8-Bxmoqhmjld-xpihxyu completes the activity by him/herself with no assistance from a helper. 5-Set-up or Clean-up Assistance-helper sets up or cleans up; patient completes activity. [place] assists only prior to or following the activity. 4-Supervision or Touching Assistance-helper provides verbal cues and/or touchi ng/steadying and/or contact guard assistance as patient completes activity. Assistance may be provided throughout the activity or intermittently. 3-Partial/Moderate Assistance-helper does LESS THAN HALF the effort. [place] lifts, holds or supports trunk or limbs, but provides less than half the effort. 2-Substantial/Maximal Assistance-helper does MORE THAN HALF the effort. [place] lifts or holds trunk or limbs and provides more than half the effort. 6-Kessqmmlq-ntzzpi does ALL the effort. Patient does none of the effort to complete the activity. Or, the assistance of 2 or more helpers is required for the patient to complete the activity. If activity was not attempted, code reason: 7-Patient Refused. 9-Not Applicable-not attempted and the patient did not perform the activity before the current illness, exacerbation or injury. 10-Not Attempted due to Environmental Limitations-(lack of equipment, weather restraints, etc.). 88-Not Attempted due to Medical Conditions or Safety Concerns. Roll Left & Right (QC): 5 Sit to Lying (QC): 5 Lying to Sitting/Side of Bed(Q: 5 Sit to Stand (QC): 5 Chair/Jav-bb-Rqnqr Xfer(QC): 5 Toilet Transfer (QC): 5 Car Transfer (QC): 5 Gait Training Does the Patient Walk?: Yes Distance: 250' x 4 Walk 10 feet (QC): 5 Walk 50 ft with 2 Turns(QC): 5 Walk 150 ft (QC): 5 Walking 10ft/uneven surface-QC: 5 Gait Assistive Device: FWW safe and functional with no deviation Stair Training Stair Training: Handrails/: 2 handrails #of Steps: 4 1 Step (curb) (QC): 5 4 Steps (QC): 5 12 Steps (QC): 9 Stairs: Pattern: Step to Balance Picking up an Object (QC): 5 (in seated position) Exercises Supine Ex: Ankle pumps, Quad Set, Heel Slides, Straight leg raise Supine Reps: 15 (2 sets) Seated Therapy Exercises: Ankle pumps, Long arc quads, Hip flexion Seated Reps: 15 (3 sets) Standing: Heel/toe raises, 3 way Ex=Flex, Abd, Ext, Mini squats Standing Reps: 15 (3 sets) NuStep Minutes: 20 NuStep Workload: 3 (to improve strength and mobility) Assessment Patient tolerated treatment well and returned to her room to [facility]. Patient progressing with treatment plan. Family highly motivated with progress. PT Correction Goals Correction Goals PT Supervisor Sleeping Bag Department Goals Time Frame: Nov 30, 2019 Roll Left & Right (QC): 5 Sit to Lying (QC): 5 Lying-Sitting on Side/Bed(QC): 5 Sit to Stand (QC): 5 Chair/Xeb-je-Hjtge Xfer(QC): 5 Toilet Transfer (QC): 5 Car Transfer (QC): 5 Does the Patient Walk: Yes Walk 10 feet (QC): 5 Walk 50ft with 2 Turns (QC): 5 Walk 150 ft (QC): 5 Walking 10ft on Uneven Surface: 5 1 Step (curb) (QC): 5 4 Steps (QC): 5 12 Steps (QC): 9 Picking up an Object (QC): 5 Does the Pt use WC or Scooter?: No Type: N/A Type: N/A PT Plan Treatment/Plan Treatment Plan: Continue Plan of Care Treatment Plan: Bed Mobility, Concurrent Therapy, Education, Functional Activity Merry, Functional Strength, Group Therapy, Gait, Safety, Therapeutic Exercise, Transfers Treatment Duration: Nov 30, 2019 Frequency: At least 5 of 7 days/Wk (IRF) Estimated Hrs Per Day: 1.5 hours per day Patient and/or Family Agrees t: Yes Time/GCodes Time In: 1255 Time Out: 1425 Total Billed Treatment Time: 90 Total Billed Treatment 1 visit EX x 4 65 min FA x 2 25 min JANN POWELL PT Nov 05, 2019 15:11 POS
--- NOTE | 2019-11-05 16:39 | Progress Note - Cardiology ---
Cardiology SOAP Progress Note Subjective: No new symptoms No syncope since admission No cp or palp Gen malaise and weakness Wants tele off Objective: I&O/Vital Signs 11/05/19 11/05/19 11/05/19 11/05/19 06:00 06:42 08:10 12:42 Temp 37.2 Pulse 51 49 63 Resp 16 B/P (MAP) 149/72 (97) Pulse Ox 95 O2 Delivery Room Air Room Air 11/05/19 00:00 Intake Total 750 ml Balance 750 ml Weight (Pounds): 170 Weight (Ounces): 0.0 Weight (Calculated Kilograms): 77.850989 Constitutional: AAO x 3, well-developed, well-nourished Respiratory: No accessory muscle use, No respiratory distress; chest expansion is symmetric, chest is bilaterally symmetric, lungs clear to auscultation Cardiovascular: regular rate-rhythm; No JVD; S1 and S2 Gastrointestional: No tender; soft, round, audible bowel sounds Extremities: no lower extremity edema bilateral Neurologic/Psychiatric: other (poor memory, alert and orientd x 3, moves all limbs equally) Skin: No rash on exposed areas, No ulcerations on exposed areas Results/Procedures: Labs Laboratory Tests 11/05/19 05:30: Sodium Level 142, Potassium Level 3.9, Chloride Level 110H, Carbon Dioxide Level 22, Anion Gap 10, Blood Urea Nitrogen 20H, Creatinine 0.89, Estimat Glomerular Filtration Rate 60, BUN/Creatinine Ratio 22, Glucose Level 88, Calcium Level 10.3H, Magnesium Level 1.8 Laboratory Tests 11/04/19 05:35 11/04/19 06:35 11/05/19 05:30 A/P: Assessment: Syncopal episodes of undetermined etiology - possibly r/t orthostatic hypotension Echo of 11/01/19: LVEF 60-65%, RVSP 27 mmHg Hypokalemia, likely due to chronic diuretic therapy HTN, by history Hardness of hearing Plan: * She wants tele off. We recommend ILR. She will discuss with her family * Monitor labs * I answered CV-related questions from and from a daughter who was by her bed side today BARBARA PERRY MD FACP FAC CCDS Nov 05, 2019 16:39 POS
[2019-11-05 18:00] VITALS: BP 154/79
[2019-11-05] MEDS: MELATONIN 3 MG TABLET PO PRN (20:14)
[2019-11-06 06:28] VITALS: BP 149/78
[2019-11-06] MEDS: FENOFIBRATE 134 MG (LOFIBRA) CAPSULE PO SCH (08:55)
[2019-11-06] MEDS: SENNA W/DOCUSATE (SENOKOT S) TABLET PO SCH ×2 (08:55→20:42)
[2019-11-06] MEDS: LACTOBACILLUS ACIDOPHILUS (PROBIOTIC) CAPSULE PO SCH ×2 (08:55→20:41)
[2019-11-06] MEDS: ALLOPURINOL 100 MG (ZYLOPRIM) TAB PO SCH (08:55)
[2019-11-06] MEDS: metroNIDAZOLE 250 MG (FLAGYL) TAB PO SCH ×2 (08:55→20:41)
[2019-11-06] MEDS: DOCUSATE SODIUM 100 MG (COLACE) CAP PO SCH ×2 (08:55→20:42)
[2019-11-06] MEDS: POLYETHYLENE GLYCOL 17 GM (MIRALAX) PACK PO SCH ×2 (08:56→20:42)
[2019-11-06] MEDS: DICLOFENAC 1% GEL 100 GM (VOLTAREN) TUBE TOP SCH ×4 (08:57→20:48)
--- NOTE | 2019-11-06 10:03 | Occupational Ther Daily Note ---
OT Current Status-Daily Note Subjective Pt seen in recliner chair upon entry, no pain per pt. Pt's daughter present start of session, both daughter and son present end of session. Pt agreeable to OT tx session with goals to complete showering. ADL-Treatment Therapy Code Descriptions/Definitions Functional [place] Measure: 0=Not Assessed/NA 4=Minimal Assistance 1=Total Assistance 5=Supervision or Setup 2=Maximal Assistance 6=Modified [place] 3=Moderate Assistance 7=Complete IndependenceSCALE: Activities may be completed with or without assistive devices. 7-Idhtknyrkh-zbpfoqx completes the activity by him/herself with no assistance from a helper. 5-Set-up or Clean-up Assistance-helper sets up or cleans up; patient completes activity. [place] assists only prior to or following the activity. 4-Supervision or Touching Assistance-helper provides verbal cues and/or touching/steadying and/or contact guard assistance as patient completes activity. Assistance may be provided throughout the activity or intermittently. 3-Partial/Moderate Assistance-helper does LESS THAN HALF the effort. [place] lifts, holds or supports trunk or limbs, but provides less than half the effort. 2-Substantial/Maximal Assistance-helper does MORE THAN HALF the effort. [place] lifts or holds trunk or limbs and provides more than half the effort. 4-Eurtctzqd-rcdmzn does ALL the effort. Patient does none of the effort to complete the activity. Or, the assistance of 2 or more helpers is required for the patient to complete the activity. If activity was not attempted, code reason: 7-Patient Refused. 9-Not Applicable-not attempted and the patient did not perform the activity before the current illness, exacerbation or injury. 10-Not Attempted due to Environmental Limitations-(lack of equipment, weather restraints, etc.). 88-Not Attempted due to Medical Conditions or Safety Concerns. Eating (QC): 6 (Brings drink to mouth and completes ) Oral Hygiene (QC): 4 (SBA at sink to complete with FWW) Bathing Location: L Arm, R Arm, L Upper Leg, R Upper Leg, L Lower Leg (including foot), R Lower Leg (including foot), Chest, Abdomen Shower/Bathe Self (QC): 3 (Pt requires assist with bottom, back, and dante area. Completes feet with LHS.) Upper Body Dressing (QC): 5 (s/u) Lower Body Dressing (QC): 4 (SBA in stance to pan puller hips. Cues for use of veterinarian epidemiologist. Pt requires reassurance of ability as pt begins to state she isn't sure she is able to compelte tasks in stance. Pt completes with good endurance and SBA. Pt reminded of abilities.) Toileting Hygiene (QC): 2 (Completes bottom/ dante hygiene in shower with max A in stance.) Toilet Transfer (QC): 4 (SBA from FWW) on/off footwear: 4 min cues for positioning of shoe horn for successful donning. Rolo hose donned with TD, pt did not wear prior to hospitalization. Other Treatment Pt completes ADLs in room. Stands at mirror to complete hair grooming with SBA. Pt's daughter and son present end of session. Pt left in recliner chair with all needs met, call light in reach, chair alarm on. Education OT Patient Education: Correct positioning, Energy conservation, Modified ADL techniques, Progress toward Goal/Update tx plan, Purpose of tx/functional activities, Reviewed precautions, Rehab process, Use of adapted equipment Teaching Recipient: Patient Teaching Methods: Demonstration, Discussion Response to Teaching: Verbalize Understanding, Return Demonstration, Reinforcement Needed OT Short Term Goals Short Term Goals Oral hygiene: 6 Lower body dressin (met) Putting on/taking off footwear: 6 (met) OT Co Director Goals Custodial Goals Time Frame: Nov 15, 2019 Eating (QC): 6 (met) Oral Hygiene (QC): 6 Toileting Hygiene (QC): 4 Shower/Bathe Self (QC): 4 Upper Body Dressing (QC): 4 (met) Lower Body Dressing (QC): 6 On/Off Footwear (QC): 6 (met) Additional Goals: 1-Demonstrate ADL Tasks, 2-Verbalize Understanding, 3- ImproveStrength/Merry 1=Demonstrate adherence to instructed precautions during ADL tasks. 2=Patient will verbalize/demonstrate understanding of assistive devices/modifications for ADL. 3=Patient will improve strength/tolerance for activity to enable patient to perform ADL's. OT Education/Plan Problem List/Assessment Assessment: Decreased Activ Tolerance, Decreased Safety Aware, Decreased UE Strength, Dependent Transfers, Impaired Cognition, Impaired Funct Balance, Impaired I ADL's, Impaired Self-Care Skills Discharge Recommendations Plan/Recommendations: Continue POC Treatment Plan/Plan of Care Treatment,Training & Education: Yes Patient would benefit from OT for education, treatment and training to promote independence in ADL's, mobility, safety and/or upper extremity function for ADL's. Plan of Care: ADL Retraining, Caregiver Training, Functional Mobility, Group Exercise/Act as Ind, UE Funct Exercise/Act Treatment Duration: Nov 15, 2019 Frequency: At least 5 of 7 days/Wk (IRF) Estimated Hrs Per Day: 1.5 hours per day Agreement: Yes Rehab Potential: Fair Time/GCodes Start Time: 08:00 Stop Time: 09:00 Total Time Billed (hr/min): 60 Billed Treatment Time 1, ADL 4 (60) TROY STRATTON OTR Nov 06, 2019 10:03
--- NOTE | 2019-11-06 10:36 | PM&R Progress Note ---
Subjective HPI/CC On Admission Date Seen by Provider: Nov 06, 2019 Time Seen by Provider: 08:30 Subjective/Events-last exam Pt seems to need her children around her at all times Very anxious Owen Gomez did screen her for Senior Unit but declined and wants to do outpatient Unsure if she is going to be able to DC home if she needs her family beside her and her daughter she is always asking for is leaving town today and leaving her brother Will discuss in team meeting Walking very well overall though Denies any pain otherwise Check meds and labs Reviewed therapy notes Conferred with toe former of Systems General: Fatigue Neurological: Confusion Objective Exam Vital Signs Vital Signs Date Time Temp Pulse Resp B/P (MAP) Pulse Ox O2 Delivery O2 Flow Rate FiO2 11/06/19 19:00 60 11/06/19 18:00 36.6 18 170/84 (112) 97 Room Air Capillary Refill : General Appearance: No Apparent Distress, WD/WN, Chronically ill HEENT: PERRL/EOMI, Normal ENT Inspection, Pharynx Normal Neck: Full Range of Motion, Normal Inspection, Non Tender, Supple, Carotid Bruit Respiratory: Chest Non Tender, Lungs Clear, Normal Breath Sounds, No Accessory Muscle Use, No Respiratory Distress Cardiovascular: Regular Rate, Rhythm, No Edema, No Gallop, No JVD, No Murmur, Normal Peripheral Pulses Gastrointestinal: Normal Bowel Sounds, No Organomegaly, No Pulsatile Mass, Non Tender, Soft Back: Normal Inspection, No CVA Tenderness, No Vertebral Tenderness Extremity: Normal Capillary Refill, Normal Inspection, Normal Range of Motion, Non Tender, No Calf Tenderness, No Pedal Edema Neurologic/Psychiatric: Alert, Oriented x3, No Motor/Sensory Deficits, Normal Mood/Affect, marketing area manager II-XII Norm as Tested, Abnormal Gait, Disoriented Skin: Normal Color, Warm/Dry Lymphatic: No Adenopathy Results/Procedures Lab Patient resulted labs reviewed. FIM Transfers Therapy Code Descriptions/Definitions Functional [place] Measure: 0=Not Assessed/NA 4=Minimal Assistance 1=Total Assistance 5=Supervision or Setup 2=Maximal Assistance 6=Modified [place] 3=Moderate Assistance 7=Complete IndependenceSCALE: Activities may be completed with or without assistive devices. 0-Goegbwagdu-apvizaw completes the activity by him/herself with no assistance from a helper. 5-Set-up or Clean-up Assistance-helper sets up or cleans up; patient completes activity. [place] assists only prior to or following the activity. 4-Supervision or Touching Assistance-helper provides verbal cues and/or touching/steadying and/or contact guard assistance as patient completes activity. Assistance may be provided throughout the activity or intermittently. 3-Partial/Moderate Assistance-helper does LESS THAN HALF the effort. [place] lifts, holds or supports trunk or limbs, but provides less than half the effort. 2-Substantial/Maximal Assistance-helper does MORE THAN HALF the effort. [place] lifts or holds trunk or limbs and provides more than half the effort. 1-[place]-vcrkoh does ALL the effort. Patient does none of the effort to complete the activity. Or, the assistance of 2 or more helpers is required for the patient to complete the activity. If activity was not attempted, code reason: 7-Patient Refused. 9-Not Applicable-not attempted and the patient did not perform the activity before the current illness, exacerbation or injury. 10-Not Attempted due to Environmental Limitations-(lack of equipment, weather restraints, etc.). 88-Not Attempted due to Medical Conditions or Safety Concerns. Roll Left to Right (QC): 5 Sit to Lying (QC): 5 Sit to Stand (QC): 5 Chair/Oac-tm-Osuuo Xfer(QC): 5 Car Transfer (QC): 5 Gait Training Does the Patient Walk?: Yes Distance: 250' x 4 Walk 10 feet (QC): 5 Walk 50 ft with 2 Turns(QC): 5 Walk 150 ft (QC): 5 Walking 10ft/uneven surface-QC: 5 Gait Persons Needed: 1 Gait Assistive Device: FWW Wheelchair Training Does the Pt Use a Wheelchair?: No Wheel 50 ft with 2 turns (QC): 9 Wheel 150 ft (QC): 9 Type of Wheelchair: Manual Stair Training Stair Training: Handrails/: 2 handrails #of Steps: 4 1 Step (curb) (QC): 5 4 Steps (QC): 5 12 Steps (QC): 9 Stairs: Pattern: Step to Balance Picking up an Object (QC): 5 (in seated position) ADL-Treatment Eating (QC): 6 (Brings drink to mouth and completes ) Oral Hygiene (QC): 4 (SBA at sink to complete with FWW) Bathing Location: L Arm, R Arm, L Upper Leg, R Upper Leg, L Lower Leg (includin g foot), R Lower Leg (including foot), Chest, Abdomen Shower/Bathe Self (QC): 3 (Pt requires assist with bottom, back, and dante area. Completes feet with LHS.) Upper Body Dressing (QC): 5 (s/u) Lower Body Dressing (QC): 4 (SBA in stance to frame pulley mortising machine operator hips. Cues for use of carpet jack. Pt requires reassurance of ability as pt begins to state she isn't sure she is able to compelte tasks in stance. Pt completes with good endurance and SBA. Pt reminded of abilities.) On/Off Footwear (QC): 4 (CGA in stance to complete shoe don/ doffing. Pt states she does not wear socks.) Toileting Hygiene (QC): 2 (Completes bottom/ dante hygiene in shower with max A in stance.) Toilet Transfer (QC): 4 (SBA from FWW) Assessment/Plan Assessment and Plan Assess & Plan/Chief Complaint Assessment: Recurrent syncope Recurrent falls Orthostatic hypotension Hypokalemia Hypertension history holding hydrochlorothiazide History of C. difficile colitis Confusion Plan: Inpatient rehab protocol Orthostasis management Appreciate cardiology Telemetry DC planned (1) Debility (2) Fall on same level Status: Acute (3) Rhabdomyolysis Status: Acute (4) Vertigo Status: Acute (5) Volume depletion Status: Acute (6) Dementia Status: Acute (7) Confusion Status: Acute (8) C. difficile colitis Status: Acute (9) Altered mental state Status: Acute (10) Orthostasis RASHEED BISHOP DO Nov 06, 2019 10:36
--- NOTE | 2019-11-06 12:08 | Physical Therapy Daily Note ---
PT Daily Note-Current Subjective Pt sitting in recliner upon arrival. Pt agrees to PT. Pt's daughter & son are present at start of Rx. Pt is very anxious. Mental Status Patient Orientation: Person, Confused, Place Attachments: Other-See Comments (Telemetry) Transfers SCALE: Activities may be completed with or without assistive devices. 7-Rttmwguhvy-aotqtel completes the activity by him/herself with no assistance from a helper. 5-Set-up or Clean-up Assistance-helper sets up or cleans up; patient completes activity. [place] assists only prior to or following the activity. 4-Supervision or Touching Assistance-helper provides verbal cues and/or touching/steadying and/or contact guard assistance as patient completes activity. Assistance may be provided throughout the activity or intermittently. 3-Partial/Moderate Assistance-helper does LESS THAN HALF the effort. [place] lifts, holds or supports trunk or limbs, but provides less than half the effort. 2-Substantial/Maximal Assistance-helper does MORE THAN HALF the effort. [place] lifts or holds trunk or limbs and provides more than half the effort. 0-Sozykkyjp-zwyrra does ALL the effort. Patient does none of the effort to complete the activity. Or, the assistance of 2 or more helpers is required for the patient to complete the activity. If activity was not attempted, code reason: 7-Patient Refused. 9-Not Applicable-not attempted and the patient did not perform the activity before the current illness, exacerbation or injury. 10-Not Attempted due to Environmental Limitations-(lack of equipment, weather restraints, etc.). 88-Not Attempted due to Medical Conditions or Safety Concerns. Sit to Lying (QC): 5 Sit to Stand (QC): 5 Toilet Transfer (QC): 5 Weight Bearing Full Weight Bearing Full Weight Bearing Gait Training Does the Patient Walk?: Yes Distance: 150' Walk 10 feet (QC): 4 Walk 50 ft with 2 Turns(QC): 4 Walk 150 ft (QC): 4 Gait Persons Needed: 1 Gait Assistive Device: FWW Exercises Seated Therapy Exercises: Ankle pumps, Long arc quads, Hip flexion, Kicking activity Seated Reps: 15 NuStep Minutes: 15 NuStep Workload: 4 Treatments Pt transfers to standing using FWW. Pt ambulates in hallway then uses NuStep for 15m at WL 4. Pt completes Seated Ex before returning to room to rest in recliner at end of Rx. Pt has all needs met, call light next to pt. Assessment Current Status: Good Progress Pt needs encouragement and reassurance that she is doing well. Pt gets confused at times. PT Railroad Signal And Switch Operator Goals Railroad Signal And Switch Operator Goals PT Railroad Signal And Switch Operator Goals Time Frame: Nov 30, 2019 Roll Left & Right (QC): 5 Sit to Lying (QC): 5 Lying-Sitting on Side/Bed(QC): 5 Sit to Stand (QC): 5 Chair/Pxi-jg-Yrzzd Xfer(QC): 5 Toilet Transfer (QC): 5 Car Transfer (QC): 5 Does the Patient Walk: Yes Walk 10 feet (QC): 5 Walk 50ft with 2 Turns (QC): 5 Walk 150 ft (QC): 5 Walking 10ft on Uneven Surface: 5 1 Step (curb) (QC): 5 4 Steps (QC): 5 12 Steps (QC): 9 Picking up an Object (QC): 5 Does the Pt use WC or Scooter?: No Type: N/A Type: N/A PT Plan Problem List Problem List: Activity Tolerance, Functional Strength, Safety Treatment/Plan Treatment Plan: Continue Plan of Care Treatment Plan: Bed Mobility, Concurrent Therapy, Education, Functional Activity Merry, Functional Strength, Group Therapy, Gait, Safety, Therapeutic Exercise, Transfers Treatment Duration: Nov 30, 2019 Frequency: At least 5 of 7 days/Wk (IRF) Estimated Hrs Per Day: 1.5 hours per day Patient and/or Family Agrees t: Yes Safety Risks/Education Patient Education: Gait Training, Transfer Techniques, Correct Positioning, Safety Issues Teaching Recipient: Patient Teaching Methods: Discussion Response to Teaching: Verbalize Understanding Time/GCodes Time In: 900 Time Out: 945 Total Billed Treatment Time: 45 Total Billed Treatment 1, GT (15m) & EX x2 (30m) FARHANA DOBBS GROUND WATER PUMP INSTALLER Nov 06, 2019 12:07
[2019-11-06] MEDS: ENOXAPARIN 40 MG/0.4 ML (LOVENOX) SYR SC SCH (14:14)
--- NOTE | 2019-11-06 15:47 | Therapy Group Daily Note ---
Therapy Daily Group Note Patient Education Topic Other List Below (Memory Strategies) Exercises LE Seated Exercise, UE Exercise Session Ratio (pt:therapist): 4:1 Goal of Session: Memory Strategies, UE/LE Strengthing Goal Met for this Session: Yes Pt Benefit of Group: Contributions to Others, F/U Use of Strategies @Home, Increased Functional Safety, Increased Functional Strength, Improved Cognition, Recognition of Peers, Socialization Other/Notes Pt ambulated using FWW to [facility] for OT/PT group. Group consisted of introductions (name, place born, random Kaylee question), socialization, UE/LE seated exercises, memory activity and memory education/strategies. Pt introduced self appropriately and actively listened to peers. Pt has difficulty with UE/LE seated exercises due to decreased strength and confusion. Pt acknowledged understanding of educational topic by given gestures in affirmative and own personal strategies. Pt was able to match 1 of items during a memory activity. After therapy, pt reclined in chair with call light/phone in reach. All needs met in room. Start Time: 13:00 Stop Time: 14:15 Total Billed Treatment Time: 75 Total Billed Treatment 1, GRP (75m) FARHANA DOBBS PTA Nov 06, 2019 15:47
--- NOTE | 2019-11-06 17:27 | NUR ---
Weekly Team Conference Discussed team conference summary with Daughter/DPOA Shy Lott by phone, then with patient and her son Papito Sun. All are in agreement to a continued stay until discharge 11/08/19. DME: No new DME indicated. [facility]: Will coordinate with patient/family preferred agency, [facility], for RN, PT, OT. IN-HOME SERVICES: Patient daughter/family will resume her in-home services through [employer]. They have requested more hours coverage, to be determined. BEHAVIORAL HEALTH: Surgical Assistant coordinated patient's first appointment with [facility], assessment by Psychiatrist Dr. Adelaide Ashton: November 14, 2019, 1:45 p.m. Patient/family understand they are to transport patient to that appointment and that [facility] will provide transport thereafter for outpatient cognitive therapy. Patient excited and pleased about returning home. Family members very supportive and caring. They will monitor and/or supplement monitor of patient in her home.
[2019-11-06 18:00] VITALS: BP 170/84
--- NOTE | 2019-11-06 19:01 | Progress Note - Cardiology ---
Cardiology SOAP Progress Note Subjective: No syncope or cp or palp or shortness of breath Weakness improving Wants tele off Refuses ILR Objective: I&O/Vital Signs 11/06/19 11/06/19 09:00 12:48 Pulse 65 O2 Delivery Room Air 11/06/19 00:00 Intake Total 1500 ml Balance 1500 ml Weight (Pounds): 170 Weight (Ounces): 0.0 Weight (Calculated Kilograms): 77.935341 Constitutional: AAO x 3, well-developed, well-nourished Respiratory: No accessory muscle use, No respiratory distress; chest expansion is symmetric, chest is bilaterally symmetric, lungs clear to auscultation Cardiovascular: regular rate-rhythm; No JVD; S1 and S2 Gastrointestional: No tender; soft, round, audible bowel sounds Extremities: no lower extremity edema bilateral Neurologic/Psychiatric: other (poor memory, alert and orientd x 3, moves all limbs equally) Skin: No rash on exposed areas, No ulcerations on exposed areas Results/Procedures: Labs Laboratory Tests 11/05/19 05:30 A/P: Assessment: Syncopal episodes of undetermined etiology - possibly r/t orthostatic hypotension Echo of 11/01/19: LVEF 60-65%, RVSP 27 mmHg Hypokalemia, likely due to chronic diuretic therapy, corrected during this hospitalization, diuretics stopped HTN, by history Hardness of hearing Plan: * She wants tele off. We recommend ILR. She has considered it and discussed with her family. She refuses ILR. * Monitor labs * I answered CV-related questions from her and from her son who was by her bedside today BARBARA PERRY MD FACP FAC CCDS Nov 06, 2019 19:01
[2019-11-06] MEDS: MELATONIN 3 MG TABLET PO PRN (20:41)
[2019-11-07 05:49] VITALS: BP 159/76
--- NOTE | 2019-11-07 09:41 | Occupational Ther Daily Note ---
OT Current Status-Daily Note Subjective Pt seen EOB with son present, s/u for breakfast. Pt completes and agrees to sponge bath/ OT tx session. Pt denies pain. ADL-Treatment Therapy Code Descriptions/Definitions Functional [place] Measure: 0=Not Assessed/NA 4=Minimal Assistance 1=Total Assistance 5=Supervision or Setup 2=Maximal Assistance 6=Modified [place] 3=Moderate Assistance 7=Complete IndependenceSCALE: Activities may be completed with or without assistive devices. 6-Ymdswaejmn-sfgpajc completes the activity by him/herself with no assistance from a helper. 5-Set-up or Clean-up Assistance-helper sets up or cleans up; patient completes activity. [place] assists only prior to or following the activity. 4-Supervision or Touching Assistance-helper provides verbal cues and/or touching/steadying and/or contact guard assistance as patient completes activ ity. Assistance may be provided throughout the activity or intermittently. 3-Partial/Moderate Assistance-helper does LESS THAN HALF the effort. [place] lifts, holds or supports trunk or limbs, but provides less than half the effort. 2-Substantial/Maximal Assistance-helper does MORE THAN HALF the effort. [place] lifts or holds trunk or limbs and provides more than half the effort. 1-Wvgvvuwpe-rmeaov does ALL the effort. Patient does none of the effort to complete the activity. Or, the assistance of 2 or more helpers is required for the patient to complete the activity. If activity was not attempted, code reason: 7-Patient Refused. 9-Not Applicable-not attempted and the patient did not perform the activity before the current illness, exacerbation or injury. 10-Not Attempted due to Environmental Limitations-(lack of equipment, weather restraints, etc.). 88-Not Attempted due to Medical Conditions or Safety Concerns. Eating (QC): 6 (completes EOB) Oral Hygiene (QC): 6 (Completes at sink with FWW) Shower/Bathe Self (QC): 3 (assist with back and bottom/ dante area.) Upper Body Dressing (QC): 6 Lower Body Dressing (QC): 4 (SBA during pull up over hips.) Toileting Hygiene (QC): 2 (Max A at stance to complete bottom/ dante hygiene. Pt has bidet at home for hygiene.) Toilet Transfer (QC): 4 (SBA) on/off footwear: 6 for shoes with shoe horn Other Treatment Pt completes sponge bath in recliner chair, oral hygiene at sink. Pt utilizes FWW to walk to therapy gym, completes 10 min of arm bike to address functional endurance. pt completes sitting/ standing balance activities including reaching across midline to place hoops onto pegs above/ below shoulders and hips. Pt demonstrates good balance, maintains one hand on FWW and completes with SBA. Pt completes UE arm raises with 1# wrist weights, completes 3 sets of 10 exercises. Pt's son present end of session, discusses plans for later this afternoon as he plans to leave and return in morning. Pt expresses anxious behaviors including questioning and quick breathing/ fast talking, pt able to be redirected and assured she will be taken care of/ good practice for home environment. Pt agrees, returns to room in recliner with call light in reach , all needs met, chair alarm on, son present. Education OT Patient Education: Correct positioning, Exercise program, Home exercise program, Instructions to caregiver, Modified ADL techniques, Progress toward Goal/Update tx plan, Purpose of tx/functional activities Teaching Recipient: Patient Teaching Methods: Demonstration, Discussion Response to Teaching: Verbalize Understanding, Return Demonstration, Reinforcement Needed OT Short Term Goals Short Term Goals Oral hygiene: 6 (met) Lower body dressin (met) Putting on/taking off footwear: 6 (met) OT Group Home Goals Press And Blow Machine Tender Goals Time Frame: Nov 15, 2019 Eating (QC): 6 (met) Oral Hygiene (QC): 6 (met) Toileting Hygiene (QC): 4 Shower/Bathe Self (QC): 4 Upper Body Dressing (QC): 4 (met) Lower Body Dressing (QC): 6 On/Off Footwear (QC): 6 (met) Additional Goals: 1-Demonstrate ADL Tasks, 2-Verbalize Understanding, 3- ImproveStrength/Merry 1=Demonstrate adherence to instructed precautions during ADL tasks. 2=Patient will verbalize/demonstrate understanding of assistive devices/modifications for ADL. 3=Patient will improve strength/tolerance for activity to enable patient to perform ADL's. OT Education/Plan Problem List/Assessment Assessment: Decreased Activ Tolerance, Decreased UE Strength, Impaired Funct Balance, Impaired I ADL's, Impaired Self-Care Skills Discharge Recommendations Plan/Recommendations: Continue POC Therapy Discharge Recommendati: Scheduled Assistance, Home & Family Equpiment Recommendations-D/C: None Treatment Plan/Plan of Care Treatment,Training & Education: Yes Patient would benefit from OT for education, treatment and training to promote independence in ADL's, mobility, safety and/or upper extremity function for ADL's. Plan of Care: ADL Retraining, Caregiver Training, Functional Mobility, Group Exercise/Act as Ind, UE Funct Exercise/Act Treatment Duration: Nov 15, 2019 Frequency: At least 5 of 7 days/Wk (IRF) Estimated Hrs Per Day: 1.5 hours per day Agreement: Yes Rehab Potential: Fair Time/GCodes Start Time: 08:00 Stop Time: 09:30 Total Time Billed (hr/min): 90 Billed Treatment Time 1, ADL 4 (60), EX 2 (30)= 90 TROY STRATTON OTR Nov 07, 2019 09:41
--- NOTE | 2019-11-07 10:16 | PM&R Progress Note ---
Subjective HPI/CC On Admission Date Seen by Provider: Nov 07, 2019 Time Seen by Provider: 09:00 Subjective/Events-last exam Discharge is planned for tomorrow. Family never leaves her side. Unsure if that is going to be able to be maintained at home since they live out of town. No anxiety last night since the family stayed with her. Will need [facility] home health. Denies any pain otherwise Check meds and labs Reviewed therapy notes Conferred with inspector conveyor line of Systems General: Fatigue Objective Exam Vital Signs Vital Signs Date Time Temp Pulse Resp B/P (MAP) Pulse Ox O2 Delivery O2 Flow Rate FiO2 11/08/19 06:13 37.0 56 16 152/74 (100) 98 Room Air Capillary Refill : General Appearance: No Apparent Distress, WD/WN, Chronically ill HEENT: PERRL/EOMI, Normal ENT Inspection, Pharynx Normal Neck: Full Range of Motion, Normal Inspection, Non Tender, Supple, Carotid Bruit Respiratory: Chest Non Tender, Lungs Clear, Normal Breath Sounds, No Accessory Muscle Use, No Respiratory Distress Cardiovascular: Regular Rate, Rhythm, No Edema, No Gallop, No JVD, No Murmur, Normal Peripheral Pulses Gastrointestinal: Normal Bowel Sounds, No Organomegaly, No Pulsatile Mass, Non Tender, Soft Back: Normal Inspection, No CVA Tenderness, No Vertebral Tenderness Extremity: Normal Capillary Refill, Normal Inspection, Normal Range of Motion, Non Tender, No Calf Tenderness, No Pedal Edema Neurologic/Psychiatric: Alert, Oriented x3, No Motor/Sensory Deficits, Normal Mood/Affect, millinery copyist II-XII Norm as Tested, Abnormal Gait, Disoriented Skin: Normal Color, Warm/Dry Lymphatic: No Adenopathy Results/Procedures Lab Patient resulted labs reviewed. FIM Transfers Therapy Code Descriptions/Definitions Functional [place] Measure: 0=Not Assessed/NA 4=Minimal Assistance 1=Total Assistance 5=Supervision or Setup 2=Maximal Assistance 6=Modified [place] 3=Moderate Assistance 7=Complete IndependenceSCALE: Activities may be completed with or without assistive devices. 6-Kstyxnnzsd-mjnvnap completes the activity by him/herself with no assistance from a helper. 5-Set-up or Clean-up Assistance-helper sets up or cleans up; patient completes activity. [place] assists only prior to or following the activity. 4-Supervision or Touching Assistance-helper provides verbal cues and/or touching/steadying and/or contact guard assistance as patient completes activit y. Assistance may be provided throughout the activity or intermittently. 3-Partial/Moderate Assistance-helper does LESS THAN HALF the effort. [place] lifts, holds or supports trunk or limbs, but provides less than half the effort. 2-Substantial/Maximal Assistance-helper does MORE THAN HALF the effort. [place] lifts or holds trunk or limbs and provides more than half the effort. 2-Nnhdssnis-ekkbvc does ALL the effort. Patient does none of the effort to complete the activity. Or, the assistance of 2 or more helpers is required for the patient to complete the activity. If activity was not attempted, code reason: 7-Patient Refused. 9-Not Applicable-not attempted and the patient did not perform the activity before the current illness, exacerbation or injury. 10-Not Attempted due to Environmental Limitations-(lack of equipment, weather restraints, etc.). 88-Not Attempted due to Medical Conditions or Safety Concerns. Roll Left to Right (QC): 5 Sit to Lying (QC): 5 Sit to Stand (QC): 5 Chair/Yhd-zc-Ktjtv Xfer(QC): 5 Car Transfer (QC): 5 Gait Training Does the Patient Walk?: Yes Distance: 150' Walk 10 feet (QC): 4 Walk 50 ft with 2 Turns(QC): 4 Walk 150 ft (QC): 4 Walking 10ft/uneven surface-QC: 5 Gait Persons Needed: 1 Gait Assistive Device: FWW Wheelchair Training Does the Pt Use a Wheelchair?: Yes Wheel 50 ft with 2 turns (QC): 9 Wheel 150 ft (QC): 9 Type of Wheelchair: Manual Stair Training Stair Training: Handrails/: 2 handrails #of Steps: 4 1 Step (curb) (QC): 5 4 Steps (QC): 5 12 Steps (QC): 9 Stairs: Pattern: Step to Balance Picking up an Object (QC): 5 (in seated position) ADL-Treatment Eating (QC): 6 (completes EOB) Oral Hygiene (QC): 6 (Completes at sink with FWW) Bathing Location: L Arm, R Arm, L Upper Leg, R Upper Leg, L Lower Leg (including foot), R Lower Leg (including foot), Chest, Abdomen Shower/Bathe Self (QC): 3 (assist with back and bottom/ dante area.) Upper Body Dressing (QC): 6 Lower Body Dressing (QC): 4 (SBA during pull up over hips.) On/Off Footwear (QC): 4 (CGA in stance to complete shoe don/ doffing. Pt states she does not wear socks.) Toileting Hygiene (QC): 2 (Max A at stance to complete bottom/ dante hygiene. Pt has bidet at home for hygiene.) Toilet Transfer (QC): 4 (SBA) Assessment/Plan Assessment and Plan Assess & Plan/Chief Complaint Assessment: Recurrent syncope Recurrent falls Orthostatic hypotension Hypokalemia Hypertension history holding hydrochlorothiazide History of C. difficile colitis Confusion Plan: Inpatient rehab protocol Orthostasis management Appreciate cardiology Telemetry DC planned for tomorrow (1) Debility (2) Fall on same level Status: Acute (3) Rhabdomyolysis Status: Acute (4) Vertigo Status: Acute (5) Volume depletion Status: Acute (6) Dementia Status: Acute (7) Confusion Status: Acute (8) C. difficile colitis Status: Acute (9) Altered mental state Status: Acute (10) Orthostasis RASHEED BISHOP DO Nov 07, 2019 10:16
[2019-11-07] MEDS: FENOFIBRATE 134 MG (LOFIBRA) CAPSULE PO SCH (11:06)
[2019-11-07] MEDS: LACTOBACILLUS ACIDOPHILUS (PROBIOTIC) CAPSULE PO SCH ×2 (11:06→20:24)
[2019-11-07] MEDS: SENNA W/DOCUSATE (SENOKOT S) TABLET PO SCH ×3 (11:06→19:38)
[2019-11-07] MEDS: POLYETHYLENE GLYCOL 17 GM (MIRALAX) PACK PO SCH ×2 (11:07→19:38)
[2019-11-07] MEDS: metroNIDAZOLE 250 MG (FLAGYL) TAB PO SCH ×2 (11:07→20:24)
[2019-11-07] MEDS: ALLOPURINOL 100 MG (ZYLOPRIM) TAB PO SCH (11:07)
[2019-11-07] MEDS: DOCUSATE SODIUM 100 MG (COLACE) CAP PO SCH ×3 (11:07→19:38)
[2019-11-07] MEDS: DICLOFENAC 1% GEL 100 GM (VOLTAREN) TUBE TOP SCH ×4 (11:08→20:26)
--- NOTE | 2019-11-07 12:09 | Physical Therapy Daily Note ---
PT Daily Note-Current Subjective Pt sitting in recliner upon arrival. Pt agrees to PT and is excited for D/C tomorrow. Pain Location: No Pain Reported Mental Status Patient Orientation: Person, Place, Time, Situation Transfers SCALE: Activities may be completed with or without assistive devices. 2-Pkifymdchd-crcaeol completes the activity by him/herself with no assistance from a helper. 5-Set-up or Clean-up Assistance-helper sets up or cleans up; patient completes activity. [place] assists only prior to or following the activity. 4-Supervision or Touching Assistance-helper provides verbal cues and/or touch ing/steadying and/or contact guard assistance as patient completes activity. Assistance may be provided throughout the activity or intermittently. 3-Partial/Moderate Assistance-helper does LESS THAN HALF the effort. [place] lifts, holds or supports trunk or limbs, but provides less than half the effort. 2-Substantial/Maximal Assistance-helper does MORE THAN HALF the effort. [place] lifts or holds trunk or limbs and provides more than half the effort. 4-Kyjnunrhb-zmyhzr does ALL the effort. Patient does none of the effort to complete the activity. Or, the assistance of 2 or more helpers is required for the patient to complete the activity. If activity was not attempted, code reason: 7-Patient Refused. 9-Not Applicable-not attempted and the patient did not perform the activity before the current illness, exacerbation or injury. 10-Not Attempted due to Environmental Limitations-(lack of equipment, weather restraints, etc.). 88-Not Attempted due to Medical Conditions or Safety Concerns. Roll Left & Right (QC): 6 Sit to Lying (QC): 6 Lying to Sitting/Side of Bed(Q: 6 Sit to Stand (QC): 6 Chair/Kvl-yr-Gxvfk Xfer(QC): 6 Toilet Transfer (QC): 6 Car Transfer (QC): 5 Weight Bearing Full Weight Bearing Full Weight Bearing Gait Training Distance: 200' Walk 10 feet (QC): 5 Walk 50 ft with 2 Turns(QC): 5 Walk 150 ft (QC): 5 Walking 10ft/uneven surface-QC: 5 Gait Persons Needed: 1 Gait Assistive Device: FWW Wheelchair Training Does the Pt Use a Wheelchair?: No Stair Training Stair Training: Handrails/: 2 handrails #of Steps: 4 1 Step (curb) (QC): 5 4 Steps (QC): 5 12 Steps (QC): 7 Stairs: Pattern: Step to Pt states I only have 3 steps at home. Balance Picking up an Object (QC): 88 Special Test Comments Pt uses trombone slide assembler at home and is fearful of loss of balance to attempt. Pt gets dizzy at bending over. Exercises Seated Therapy Exercises: Ankle pumps, Long arc quads, Hip flexion, Kicking activity Seated Reps: 20 NuStep Minutes: 10 NuStep Workload: 6 Treatments Pt completes QC items listed above as well as NuStep for 10m at WL 6 and Seated Ex. Pt returns to room at end of Rx to rest Supine in bed with all needs met, call light in hand. Assessment Current Status: Good Progress Pt tolerates Rx well. PT Bowling Alley Refinisher Goals Snf Goals PT Bowling Alley Refinisher Goals Time Frame: Nov 30, 2019 Roll Left & Right (QC): 5 Sit to Lying (QC): 5 Lying-Sitting on Side/Bed(QC): 5 Sit to Stand (QC): 5 Chair/Kjb-wy-Dwbxj Xfer(QC): 5 Toilet Transfer (QC): 5 Car Transfer (QC): 5 Does the Patient Walk: Yes Walk 10 feet (QC): 5 Walk 50ft with 2 Turns (QC): 5 Walk 150 ft (QC): 5 Walking 10ft on Uneven Surface: 5 1 Step (curb) (QC): 5 4 Steps (QC): 5 12 Steps (QC): 9 Picking up an Object (QC): 5 Does the Pt use WC or Scooter?: No Type: N/A Type: N/A PT Plan Problem List Problem List: Activity Tolerance Treatment/Plan Treatment Plan: Continue Plan of Care Treatment Plan: Bed Mobility, Concurrent Therapy, Education, Functional Activity Merry, Functional Strength, Group Therapy, Gait, Safety, Therapeutic Exercise, Transfers Treatment Duration: Nov 30, 2019 Frequency: At least 5 of 7 days/Wk (IRF) Estimated Hrs Per Day: 1.5 hours per day Patient and/or Family Agrees t: Yes Safety Risks/Education Patient Education: Gait Training, Transfer Techniques, Steps, Correct Positioning, Safety Issues Teaching Recipient: Patient Teaching Methods: Discussion Response to Teaching: Verbalize Understanding Time/GCodes Time In: 945 Time Out: 1045 Total Billed Treatment Time: 60 Total Billed Treatment 1, GT (15m), EX (15m) & FA x2 (30m) FARHANA DOBBS SLAB DEPILER OPERATOR Nov 07, 2019 12:09
[2019-11-07] MEDS: ENOXAPARIN 40 MG/0.4 ML (LOVENOX) SYR SC SCH (13:14)
--- NOTE | 2019-11-07 13:37 | NUR ---
Discharge Discharging home tomorrow. [facility]: Initiated referral with [facility], will forward final discharge orders and instructions once available. Addendum: 11/08/19 at 1215 by CORTES DUMAS IMM2 presented to patient, reviewed, signature obtained. Patient very upbeat about discharging and returning home.
--- NOTE | 2019-11-07 14:34 | Physical Therapy Daily Note ---
PT Daily Note-Current Subjective Pt sitting up in recliner upon arrival. Pt agrees to PT. Pain Location: No Pain Reported Mental Status Patient Orientation: Person, Place, Time, Situation Transfers SCALE: Activities may be completed with or without assistive devices. 9-Zefklibajg-qtfacdk completes the activity by him/herself with no assistance from a helper. 5-Set-up or Clean-up Assistance-helper sets up or cleans up; patient completes activity. [place] assists only prior to or following the activity. 4-Supervision or Touching Assistance-helper provides verbal cues and/or touching/steadying and/or contact guard assistance as patient completes activity. Assistance may be provided throughout the activity or intermittently. 3-Partial/Moderate Assistance-helper does LESS THAN HALF the effort. [place] lifts, holds or supports trunk or limbs, but provides less than half the effort. 2-Substantial/Maximal Assistance-helper does MORE THAN HALF the effort. [place] lifts or holds trunk or limbs and provides more than half the effort. 9-Kvwkaobgn-czqakn does ALL the effort. Patient does none of the effort to complete the activity. Or, the assistance of 2 or more helpers is required for the patient to complete the activity. If activity was not attempted, code reason: 7-Patient Refused. 9-Not Applicable-not attempted and the patient did not perform the activity before the current illness, exacerbation or injury. 10-Not Attempted due to Environmental Limitations-(lack of equipment, weather restraints, etc.). 88-Not Attempted due to Medical Conditions or Safety Concerns. Sit to Stand (QC): 6 Weight Bearing Full Weight Bearing Full Weight Bearing Gait Training Does the Patient Walk?: Yes Distance: 150' x2 Walk 10 feet (QC): 5 Walk 50 ft with 2 Turns(QC): 5 Walk 150 ft (QC): 5 Gait Persons Needed: 1 Gait Assistive Device: FWW Exercises NuStep Minutes: 15 NuStep Workload: 6 Treatments Pt transfers to standing using FWW and ambulates in hallway. Pt uses NuStep for 15m at WL 6 before returning to room to rest in bed. Pt has all needs met, call light in hand. Assessment Current Status: Good Progress Pt tolerated Rx well, making gains in strength and activity tolerance as well as safety. PT Senior Living Goals Photographic Colorist Goals PT Senior Living Goals Time Frame: Nov 30, 2019 Roll Left & Right (QC): 5 Sit to Lying (QC): 5 Lying-Sitting on Side/Bed(QC): 5 Sit to Stand (QC): 5 Chair/Sbf-ep-Fvubv Xfer(QC): 5 Toilet Transfer (QC): 5 Car Transfer (QC): 5 Does the Patient Walk: Yes Walk 10 feet (QC): 5 Walk 50ft with 2 Turns (QC): 5 Walk 150 ft (QC): 5 Walking 10ft on Uneven Surface: 5 1 Step (curb) (QC): 5 4 Steps (QC): 5 12 Steps (QC): 9 Picking up an Object (QC): 5 Does the Pt use WC or Scooter?: No Type: N/A Type: N/A PT Plan Problem List Problem List: Activity Tolerance Treatment/Plan Treatment Plan: Continue Plan of Care Treatment Plan: Bed Mobility, Concurrent Therapy, Education, Functional Activity Merry, Functional Strength, Group Therapy, Gait, Safety, Therapeutic Exercise, Transfers Treatment Duration: Nov 30, 2019 Frequency: At least 5 of 7 days/Wk (IRF) Estimated Hrs Per Day: 1.5 hours per day Patient and/or Family Agrees t: Yes Safety Risks/Education Patient Education: Gait Training, Correct Positioning, Safety Issues Teaching Recipient: Patient Teaching Methods: Discussion Response to Teaching: Verbalize Understanding Time/GCodes Time In: 1400 Time Out: 1430 Total Billed Treatment Time: 30 Total Billed Treatment 1, GT (15m) & EX (15m) FARHANA DOBBS FOREIGN LANGUAGE PROFESSOR Nov 07, 2019 14:34
[2019-11-07 17:50] VITALS: BP 146/74
[2019-11-07] MEDS: MELATONIN 3 MG TABLET PO PRN (20:24)
[2019-11-08 06:13] VITALS: BP 152/74
[2019-11-08] MEDS: metroNIDAZOLE 250 MG (FLAGYL) TAB PO SCH (08:05)
[2019-11-08] MEDS: SENNA W/DOCUSATE (SENOKOT S) TABLET PO SCH (08:06)
[2019-11-08] MEDS: DOCUSATE SODIUM 100 MG (COLACE) CAP PO SCH (08:06)
[2019-11-08] MEDS: ALLOPURINOL 100 MG (ZYLOPRIM) TAB PO SCH (08:06)
[2019-11-08] MEDS: POLYETHYLENE GLYCOL 17 GM (MIRALAX) PACK PO SCH (08:06)
[2019-11-08] MEDS: FENOFIBRATE 134 MG (LOFIBRA) CAPSULE PO SCH (08:06)
[2019-11-08] MEDS: LACTOBACILLUS ACIDOPHILUS (PROBIOTIC) CAPSULE PO SCH (08:06)
[2019-11-08] MEDS: DICLOFENAC 1% GEL 100 GM (VOLTAREN) TUBE TOP SCH ×2 (08:09→13:23)
--- NOTE | 2019-11-08 08:59 | D/C HH Face to Face Order ---
D/C Face to Face Orders Reconcile Patient Problems Problems Reviewed?: Yes Instructions for Patient [facility], Patient Instructions/FollowUp: Dr. Alfred in one week Dr. Rodrigues in 2 weeks Physician to follow Patient: Dr Alfred Discharge Diet for Home: No Restrictions Patient Problems: Syncope Falls Anxiety Confusion Goals for Patient: independence Patient Data-Allergies,Ht & Wt Patient Allergies: Coded Allergies: No Known Drug Allergies (Unverified , 10/04/13) Height (Feet): 5 Height (Inches): 5.00 Weight (Pounds): 170 Weight (Ounces): 0.0 Home Health Need/Face to Face Date of Face to Face: Nov 08, 2019 Clinical Findings: Generalized weakness and fatigue, Unsteady gait I have seen Pt mdiw-dp-feri: Yes Discharged To: Home Diagnosis/Conditions: Syncope Falls Anxiety Confusion Patient is Homebound due to: CognItive deficits, Ko fall risk due to instabilty, Muscle weakness Homebound Status Due to the above stated illness, injury or surgical procedure (medical condition or diagnosis) and associated clinical findings, the patient is homebound because of his/her inability to leave home except with aid of a supportive device and/or person AND leaving the home requires a considerable and taxing effort or is medically contraindicated. Pt req the following assistanc: Walker Home Health Nursing Orders Home Health Services Order: Nursing Services, Project Development Coordinator-Evaluate & Treat, Physical Therapy-Evaluate & Treat Certify Stmt I certify that this patient is under my care and that I, a nurse practitioner or a physician; a administrative assistant working with me, had a face to face encounter that - meets the physician face to face encounter requirements with this patient as dated. RASHEED BISHOP DO Nov 08, 2019 08:59
--- NOTE | 2019-11-08 10:53 | Discharge Summary ---
Diagnosis/Chief Complaint Date of Admission Nov 01, 2019 at 12:39 Date of Discharge Discharge Date: Nov 08, 2019 Discharge Diagnosis Assessment: Recurrent syncope Recurrent falls Orthostatic hypotension Hypokalemia Hypertension history holding hydrochlorothiazide History of C. difficile colitis Confusion Plan: Inpatient rehab protocol Orthostasis management Appreciate cardiology Telemetry DC planned for tomorrow (1) Debility (2) Fall on same level Status: Acute (3) Rhabdomyolysis Status: Acute (4) Vertigo Status: Acute (5) Volume depletion Status: Acute (6) Dementia Status: Acute (7) Confusion Status: Acute (8) C. difficile colitis Status: Acute (9) Altered mental state Status: Acute (10) Orthostasis Discharge Summary Discharge Physical Examination Allergies: Coded Allergies: No Known Drug Allergies (Unverified , 10/04/13) Vitals & I&Os Vital Signs Date Time Temp Pulse Resp B/P (MAP) Pulse Ox O2 Delivery O2 Flow Rate FiO2 11/08/19 16:45 37.0 56 16 152/74 98 Room Air General Appearance: Alert, Oriented X3, Cooperative Respiratory: Clear to Auscultation Cardiovascular: Regular Rate Neuro: Normal Gait, Normal Speech, Strength at 5/5 X4 Ext Psych/Mental Status: Mental Status NL, Mood NL Hospital Course Was the Problem List Reviewed?: Yes Hospital course: Pt had an uneventful hospital course for seven days after she was admitted from [facility] observation due to syncopal episode and multiple falls. Telemetry was maintained during the hospital course, Dr. Rodrigues performed a workup including echocardiogram and labs, no evidence of any cardiac source of the syncopy so he will have a close follow up with her. She will be discharged on home health out of [place] and will be monitored closely in the meantime. She was able to participate and get back to prior level of functioning without any falls or events during the hospital stay. Labs (last 24 hrs) Laboratory Tests 11/02/19 05:57: White Blood Count 4.8, Red Blood Count 3.71L, Hemoglobin 12.0, Hematocrit 37, Mean Corpuscular Volume 101H, Mean Corpuscular Hemoglobin 32, Mean Corpuscular Hemoglobin Concent 32, Red Cell Distribution Width 15.0H, Platelet Count 112L, Mean Platelet Volume 11.5H, Neutrophils (%) (Auto) 68, Lymphocytes (%) (Auto) 18, Monocytes (%) (Auto) 12, Eosinophils (%) (Auto) 2, Basophils (%) (Auto) 0, Neutrophils # (Auto) 3.2, Lymphocytes # (Auto) 0.8L, Monocytes # (Auto) 0.6, Eosinophils # (Auto) 0.1, Basophils # (Auto) 0.0, Sodium Level 141, Potassium Level 3.1L, Chloride Level 107, Carbon Dioxide Level 23, Anion Gap 11, Blood Urea Nitrogen 12, Creatinine 0.76, Estimat Glomerular Filtration Rate > 60, BUN/Creatinine Ratio 16, Glucose Level 98, Calcium Level 10.7H, Corrected Calcium 11.0H, Total Bilirubin 0.5, Aspartate Amino Transf (AST/SGOT) 35H, Alanine Aminotransferase (ALT/SGPT) 20, Alkaline Phosphatase 55, Total Protein 6.0L, Albumin 3.6 11/03/19 05:59: White Blood Count 4.6, Red Blood Count 3.58L, Hemoglobin 11.6, Hematocrit 36, Mean Corpuscular Volume 101H, Mean Corpuscular Hemoglobin 32, Mean Corpuscular Hemoglobin Concent 32, Red Cell Distribution Width 15.2H, Platelet Count 112L, Mean Platelet Volume 11.0H, Neutrophils (%) (Auto) 65, Lymphocytes (%) (Auto) 21, Monocytes (%) (Auto) 11, Eosinophils (%) (Auto) 3, Basophils (%) (Auto) 0, Neutrophils # (Auto) 3.0, Lymphocytes # (Auto) 1.0, Monocytes # (Auto) 0.5, Eosinophils # (Auto) 0.1, Basophils # (Auto) 0.0, Sodium Level 143, Potassium Level 3.5L, Chloride Level 110H, Carbon Dioxide Level 22, Anion Gap 11, Blood Urea Nitrogen 13, Creatinine 0.78, Estimat Glomerular Filtration Rate > 60, BUN/Creatinine Ratio 17, Glucose Level 94, Calcium Level 10.5H, Corrected Calcium 11.1H, Total Bilirubin 0.4, Aspartate Amino Transf (AST/SGOT) 34, Alanine Aminotransferase (ALT/SGPT) 19, Alkaline Phosphatase 57, Total Protein 5.8L, Albumin 3.3, Magnesium Level 1.7, Thyroid Stimulating Hormone (TSH) 1.63 11/04/19 05:35: Sodium Level 142, Potassium Level 3.5L, Chloride Level 109H, Carbon Dioxide Level 25, Anion Gap 8, Blood Urea Nitrogen 17, Creatinine 0.81, Estimat Glomerular Filtration Rate > 60, BUN/Creatinine Ratio 21, Glucose Level 91, Calcium Level 10.5H, Corrected Calcium 11.0H, Total Bilirubin 0.4, Aspartate Amino Transf (AST/SGOT) 42H, Alanine Aminotransferase (ALT/SGPT) 25, Alkaline Phosphatase 55, Total Protein 5.8L, Albumin 3.4 11/04/19 06:35: White Blood Count 4.6, Red Blood Count 3.72L, Hemoglobin 11.8, Hematocrit 38, Mean Corpuscular Volume 101H, Mean Corpuscular Hemoglobin 32, Mean Corpuscular Hemoglobin Concent 31L, Red Cell Distribution Width 15.3H, Platelet Count 123L, Mean Platelet Volume 11.5H, Neutrophils (%) (Auto) 67, Lymphocytes (%) (Auto) 20, Monocytes (%) (Auto) 10, Eosinophils (%) (Auto) 2, Basophils (%) (Auto) 1, Neutrophils # (Auto) 3.1, Lymphocytes # (Auto) 0.9L, Monocytes # (Auto) 0.5, Eosinophils # (Auto) 0.1, Basophils # (Auto) 0.0 11/05/19 05:30: Sodium Level 142, Potassium Level 3.9, Chloride Level 110H, Carbon Dioxide Level 22, Anion Gap 10, Blood Urea Nitrogen 20H, Creatinine 0.89, Estimat Glomerular Filtration Rate 60, BUN/Creatinine Ratio 22, Glucose Level 88, Calcium Level 10.3H, Magnesium Level 1.8 Pending Labs Laboratory Tests 11/02/19 05:57: White Blood Count 4.8, Red Blood Count 3.71, Hemoglobin 12.0, Hematocrit 37, Mean Corpuscular Volume 101, Mean Corpuscular Hemoglobin 32, Mean Corpuscular Hemoglobin Concent 32, Red Cell Distribution Width 15.0, Platelet Count 112, Mean Platelet Volume 11.5, Neutrophils (%) (Auto) 68, Lymphocytes (%) (Auto) 18, Monocytes (%) (Auto) 12, Eosinophils (%) (Auto) 2, Basophils (%) (Auto) 0, Neutrophils # (Auto) 3.2, Lymphocytes # (Auto) 0.8, Monocytes # (Auto) 0.6, Eosinophils # (Auto) 0.1, Basophils # (Auto) 0.0, Sodium Level 141, Potassium Level 3.1, Chloride Level 107, Carbon Dioxide Level 23, Anion Gap 11, Blood Urea Nitrogen 12, Creatinine 0.76, Estimat Glomerular Filtration Rate > 60, BUN/Creatinine Ratio 16, Glucose Level 98, Calcium Level 10.7, Corrected Calcium 11.0, Total Bilirubin 0.5, Aspartate Amino Transf (AST/SGOT) 35, Alanine Aminotransferase (ALT/SGPT) 20, Alkaline Phosphatase 55, Total Protein 6.0, Albumin 3.6 11/03/19 05:59: White Blood Count 4.6, Red Blood Count 3.58, Hemoglobin 11.6, Hematocrit 36, Mean Corpuscular Volume 101, Mean Corpuscular Hemoglobin 32, Mean Corpuscular Hemoglobin Concent 32, Red Cell Distribution Width 15.2, Platelet Count 112, Mean Platelet Volume 11.0, Neutrophils (%) (Auto) 65, Lymphocytes (%) (Auto) 21, Monocytes (%) (Auto) 11, Eosinophils (%) (Auto) 3, Basophils (%) (Auto) 0, Neutrophils # (Auto) 3.0, Lymphocytes # (Auto) 1.0, Monocytes # (Auto) 0.5, Eosinophils # (Auto) 0.1, Basophils # (Auto) 0.0, Sodium Level 143, Potassium Level 3.5, Chloride Level 110, Carbon Dioxide Level 22, Anion Gap 11, Blood Urea Nitrogen 13, Creatinine 0.78, Estimat Glomerular Filtration Rate > 60, BUN/Creatinine Ratio 17, Glucose Level 94, Calcium Level 10.5, Corrected Calcium 11.1, Total Bilirubin 0.4, Aspartate Amino Transf (AST/SGOT) 34, Alanine Aminotransferase (ALT/SGPT) 19, Alkaline Phosphatase 57, Total Protein 5.8, Albumin 3.3, Magnesium Level 1.7, Thyroid Stimulating Hormone (TSH) 1.63 11/04/19 05:35: Sodium Level 142, Potassium Level 3.5, Chloride Level 109, Carbon Dioxide Level 25, Anion Gap 8, Blood Urea Nitrogen 17, Creatinine 0.81, Estimat Glomerular Filtration Rate > 60, BUN/Creatinine Ratio 21, Glucose Level 91, Calcium Level 10.5, Corrected Calcium 11.0, Total Bilirubin 0.4, Aspartate Amino Transf (AST/SGOT) 42, Alanine Aminotransferase (ALT/SGPT) 25, Alkaline Phosphatase 55, Total Protein 5.8, Albumin 3.4 11/04/19 06:35: White Blood Count 4.6, Red Blood Count 3.72, Hemoglobin 11.8, Hematocrit 38, Mean Corpuscular Volume 101, Mean Corpuscular Hemoglobin 32, Mean Corpuscular Hemoglobin Concent 31, Red Cell Distribution Width 15.3, Platelet Count 123, Mean Platelet Volume 11.5, Neutrophils (%) (Auto) 67, Lymphocytes (%) (Auto) 20, Monocytes (%) (Auto) 10, Eosinophils (%) (Auto) 2, Basophils (%) (Auto) 1, Neutrophils # (Auto) 3.1, Lymphocytes # (Auto) 0.9, Monocytes # (Auto) 0.5, Eosinophils # (Auto) 0.1, Basophils # (Auto) 0.0 11/05/19 05:30: Sodium Level 142, Potassium Level 3.9, Chloride Level 110, Carbon Dioxide Level 22, Anion Gap 10, Blood Urea Nitrogen 20, Creatinine 0.89, Estimat Glomerular Filtration Rate 60, BUN/Creatinine Ratio 22, Glucose Level 88, Calcium Level 10.3, Magnesium Level 1.8 Discharge Home Medications: Active Scripts Active Reported Meclizine HCl 25 Mg Tablet 25 Mg PO TID PRN Metronidazole 250 Mg Tablet 250 Mg PO BID Hydrochlorothiazide 25 Mg Tablet 25 Mg PO DAILY Fenofibrate (Fenofibrate,Micronized) 134 Mg Capsule 134 Mg PO DAILY Citalopram HBr (Citalopram Hydrobromide) 10 Mg Tablet 10 Mg PO DAILY Florastor (Saccharomyces Boulardii) 250 Mg Capsule 250 Mg PO BID Allopurinol 100 Mg Tablet 100 Mg PO DAILY Instructions to patient/family Please see electronic discharge instructions given to patient. Diagnosis/Problems Diagnosis/Problems (1) Debility (2) Fall on same level Status: Acute (3) Rhabdomyolysis Status: Acute (4) Vertigo Status: Acute (5) Volume depletion Status: Acute (6) Dementia Status: Acute (7) Confusion Status: Acute (8) C. difficile colitis Status: Acute (9) Altered mental state Status: Acute (10) Orthostasis Clinical Quality Measures DVT/VTE Risk/Contraindication: Risk Factor Score Per Nursin RFS Level Per Nursing on Admit: 4+=Very High RASHEED BISHOP DO Nov 08, 2019 10:53
--- NOTE | 2019-11-08 11:14 | Therapy Team Discharge Summary ---
Therapy Discharge Summary Discharge Recommendations Date of Discharge Physical Therapy Patient came to rehab with debility/weakness/falls. Upon evaluation patient performed bed mobility and transfers with min/mod assist, car transfer min/mod assist, ambulated 55' with a rolling walker with min assist (including 50' with at least 2 turns of 90 degrees and 10' over an uneven surface), and went up and down 1 step using a rolling walker with min/mod assist. Patient has been performing bed mobility and transfer training, balance and endurance training, functional strengthening, stair training, gait training, and education. 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 Now, patient performs bed mobility and transfers with independence, car transfer with setup, ambulates 200' with a rolling walker with setup (including 50' with at least 2 turns of 90 degrees and 10' over an u dipesh surface), can go up and down 4 steps using 2 handrails with setup. Patient is discharging from this facility today and will be discharged from PT at this time. Occupational Therapy Decreased Activ Tolerance, Decreased UE Strength, Impaired Funct Balance, Impaired I ADL's, Impaired Self-Care Skills PT Epitaxial Reactor Technician Goals Longterm Goals PT Longterm Goals Time Frame: Nov 30, 2019 Roll Left to Right (QC): 5 Sit to Lying (QC): 5 Lying-Sitting on Side/Bed(QC): 5 Sit to Stand (QC): 5 Chair/Klg-kw-Dsweo Xfer(QC): 5 Car Transfer (QC): 5 Does the Patient Walk: Yes Walk 10 feet (QC): 5 Walk 10ft-Uneven Surface(QC): 5 Walk 50ft with 2 Turns (QC): 5 Walk 150 ft (QC): 5 Does the Pt use WC or Scooter?: No 1 Step (curb) (QC): 5 4 Steps (QC): 5 12 Steps (QC): 9 Picking up an Object (QC): 5 OT Epitaxial Reactor Technician Goals Longterm Goals Time Frame: Nov 15, 2019 Eating (QC): 6 (met) Oral Hygiene (QC): 6 (met) Shower/Bathe Self (QC): 4 Upper Body Dressing (QC): 4 (met) Lower Body Dressing (QC): 6 On/Off Footwear (QC): 6 (met) Toileting Hygiene (QC): 4 Toilet/Commode Transfer (QC): 5 Additional Goals: 1-Demonstrate ADL Tasks, 2-Verbalize Understanding, 3- ImproveStrength/Merry 1=Demonstrate adherence to instructed precautions during ADL tasks. 2=Patient will verbalize/demonstrate understanding of assistive devices/modifications for ADL. 3=Patient will improve strength/tolerance for activity to enable patient to perform ADL's. ANDRES THOMAS PT Nov 08, 2019 11:14
--- NOTE | 2019-11-08 12:10 | NUR ---
DISCHARGE [facility]: Finalized with [facility], confirmed receipt of all clinical updates and that they will open her service tomorrow. Updated patient. Spoke with daughter Shy Lott by phone. Family will be here to sisal picker patient around 1500. Unit RN aware of arrangements, discharge planning complete. Addendum: 11/08/19 at 1221 by CORTES DUMAS SS Shy updated writer editor they spoke with [facility] Owen Gomez and postponed patient starting OP therapy. The reason is that patient had been in a process of changing her regular Medicare to a replacement plan, either voluntarily or without adequate knowledge, and Shy just now was able to access the right resource to get that terminated. Family did not want to start the OP services until they know for sure the regular Medicare remains because the new plan did NOT have adequate coverage and patient would have experienced a high % out of pocket. They fully intend to resume the care plan for cognitive therapy once insurance is deemed stable.
[2019-11-08] MEDS: ENOXAPARIN 40 MG/0.4 ML (LOVENOX) SYR SC SCH (14:32)
--- NOTE | 2019-11-08 14:43 | Therapy Team Discharge Summary ---
Therapy Discharge Summary Discharge Recommendations Date of Discharge Occupational Therapy Pt admitting dx of post-fall, decreased ADL function. Pt admitting QC's include showering 3, UB dress 3, LB dress 3, footwear 4, toilet transfer 4. Pt and OT address home safety and work toward functional IND within ADL function through UE ex, balance and endurance training, and ADL training with AE. Pt limited by anxiety and memory. Pt d/c home with family support, bath aide and hospice home health aide support with QC's as followed: showering 3, UB dress 6, LB dress 4, footwear 6, toilet transfer 4. Pt d/c OT services at this date, pt has field marketing lead, shower chair/ walk in shower, shoe horn, bidet at home which assist in her ADL abilities. Decreased Activ Tolerance, Decreased UE Strength, Impaired Funct Balance, Impaired I ADL's, Impaired Self-Care Skills PT Tester Compressed Gases Goals Assisted Goals PT Assisted Goals Time Frame: Nov 30, 2019 Roll Left to Right (QC): 5 Sit to Lying (QC): 5 Lying-Sitting on Side/Bed(QC): 5 Sit to Stand (QC): 5 Chair/Fvu-yc-Kcyjf Xfer(QC): 5 Car Transfer (QC): 5 Does the Patient Walk: Yes Walk 10 feet (QC): 5 Walk 10ft-Uneven Surface(QC): 5 Walk 50ft with 2 Turns (QC): 5 Walk 150 ft (QC): 5 Does the Pt use WC or Scooter?: No 1 Step (curb) (QC): 5 4 Steps (QC): 5 12 Steps (QC): 9 Picking up an Object (QC): 5 OT Tester Compressed Gases Goals Tester Compressed Gases Goals Time Frame: Nov 15, 2019 Eating (QC): 6 (met) Oral Hygiene (QC): 6 (met) Shower/Bathe Self (QC): 4 Upper Body Dressing (QC): 4 (met) Lower Body Dressing (QC): 6 On/Off Footwear (QC): 6 (met) Toileting Hygiene (QC): 4 Toilet/Commode Transfer (QC): 5 Additional Goals: 1-Demonstrate ADL Tasks, 2-Verbalize Understanding, 3- ImproveStrength/Merry 1=Demonstrate adherence to instructed precautions during ADL tasks. 2=Patient will verbalize/demonstrate understanding of assistive devices/modifications for ADL. 3=Patient will improve strength/tolerance for activity to enable patient to perform ADL's. TROY STRATTON OTR Nov 08, 2019 14:43
--- NOTE | 2019-11-08 15:04 | Progress Note - Cardiology ---
Cardiology SOAP Progress Note Subjective: No cp or palp or syncope Weakness improving Objective: I&O/Vital Signs 11/08/19 11/08/19 06:13 08:46 Temp 37.0 Pulse 56 Resp 16 B/P (MAP) 152/74 (100) Pulse Ox 98 O2 Delivery Room Air Room Air 11/08/19 00:00 Intake Total 1230 ml Balance 1230 ml Weight (Pounds): 170 Weight (Ounces): 0.0 Weight (Calculated Kilograms): 77.000115 Constitutional: AAO x 3, well-developed, well-nourished Respiratory: No accessory muscle use, No respiratory distress; chest expansion is symmetric, chest is bilaterally symmetric, lungs clear to auscultation Cardiovascular: regular rate-rhythm; No JVD; S1 and S2 Gastrointestional: No tender; soft, round, audible bowel sounds Extremities: no lower extremity edema bilateral Neurologic/Psychiatric: other (poor memory, alert and orientd x 3, moves all limbs equally) Skin: No rash on exposed areas, No ulcerations on exposed areas A/P: Assessment: Syncopal episodes of undetermined etiology - possibly r/t orthostatic hypotension, improved/resolved after d/c diuretics. She refuses ILR Echo of 11/01/19: LVEF 60-65%, RVSP 27 mmHg Hypokalemia, likely due to chronic diuretic therapy, corrected during this hospitalization, diuretics stopped HTN, by history Hardness of hearing Plan: * Advised outpt f/u BARBARA PERRY MD FACP [facility] Nov 08, 2019 15:04
[2019-11-08 16:45] VITALS: BP 152/74
== END 2019-11-08 16:45 | disposition home health service (06) | DRG 312 ==
PROVIDERS: ADMIT Internal Medicine; ATTEND Internal Medicine
DX: I95.1 Orthostatic hypotension (principal); R29.6 Repeated falls; I10 Essential (primary) hypertension; M19.91 Primary osteoarthritis, unspecified site; M10.9 Gout, unspecified; C22.9 Malignant neoplasm of liver, not specified as primary or secondary; F41.9 Anxiety disorder, unspecified; F32.9 Major depressive disorder, single episode, unspecified; E87.6 Hypokalemia; D69.6 Thrombocytopenia, unspecified; E83.52 Hypercalcemia; T50.2X5A Adverse effect of carbonic-anhydrase inhibitors, benzothiadiazides and other diuretics, initial encounter
CPT/HCPCS: 36415; 80048; 80053; 83735; 84443; 85025; 93306

== ENCOUNTER 2019-12-04 13:31 | Observation (INO) | payer MEDICARE, MEDICAID ==
[~2019-12-04] VITALS: Ht 160 cm; Wt 91.4 kg
[~2019-12-04 13:31] MED LIST changes: +MECL-106 PO
[2019-12-04] MEDS ORDERED: NS IV 500 ML 500 ML IV ONE (13:44)
[2019-12-04 13:55] LABS: BASOPHILS % (AUTO) 0 % (0-10); EOSINOPHILS # (AUTO) 0.1 10^3/uL (0.0-0.3); EOSINOPHILS % (AUTO) 2 % (0-10); HEMATOCRIT 38 % (35-52); HEMOGLOBIN 11.8 G/DL (11.5-16.0); LYMPHOCYTES % (AUTO) 16 % (12-44); MEAN CORPUSCULAR HEMOGLOBIN 32 PG (25-34); MEAN CORPUSCULAR HGB CONC 32 G/DL (32-36); MEAN CORPUSCULAR VOLUME 100 FL (80-99); MEAN PLATELET VOLUME 11.2 FL (7.4-10.4); MONOCYTES # (AUTO) 0.6 X 10^3 (0.0-1.0); MONOCYTES % (AUTO) 9 % (0-12); NEUTROPHILS # (AUTO) 4.6 X 10^3 (1.8-7.8); NEUTROPHILS % (AUTO) 73 % (42-75); PLATELET COUNT 148 10^3/uL (130-400); RED CELL DISTRIBUTION WIDTH 15.8 % (10.0-14.5); WHITE BLOOD COUNT 6.3 10^3/uL (4.3-11.0)
--- NOTE | 2019-12-04 14:00 | ED General ---
General Chief Complaint: Dizziness/Syncope Stated Complaint: SYNOCOPE Source of Information: Patient Exam Limitations: No Limitations History of Present Illness Date Seen by Provider: Dec 04, 2019 Time Seen by Provider: 13:39 Initial Comments Here with report of possible syncopal episode and/or seizure at home. Apparently she was seen shaking after falling. Patient is confused. She's had orthostatic hypotension in the past. No caregivers are here and EMS reports that the home health aide did not have a significant amount of information other than she believes the patient passed out and was seen shaking afterwards. Patient does have history of confusion and the syncopal episodes. No reported recent fever, vomiting or diarrhea. Patient denies pain but does cry out whenever touched or moved. Unable to localize the spot of concern and this may simply be stimulus related. Patient very poor historian overall. She does redirect with calm verbal maneuvers. Timing/Duration: 1/2 Hour Severity: Moderate Modifying Factors: improves with Rest Associated Systoms: No Chest Pain, No Cough, No Headaches; Seizure; No Shortness of Air; Syncope, Weakness Allergies and Home Medications Allergies Coded Allergies: No Known Drug Allergies (Unverified , 10/04/13) Home Medications Allopurinol 100 Mg Tablet, 100 MG PO DAILY, (Reported) Citalopram Hydrobromide 10 Mg Tablet, 10 MG PO DAILY, (Reported) Fenofibrate,Micronized 134 Mg Capsule, 134 MG PO DAILY, (Reported) Hydrochlorothiazide 25 Mg Tablet, 25 MG PO DAILY, (Reported) Meclizine HCl 25 Mg Tablet, 25 MG PO TID PRN for DIZZINESS, (Reported) Metronidazole 250 Mg Tablet, 250 MG PO BID, (Reported) Saccharomyces Boulardii 250 Mg Capsule, 250 MG PO BID, (Reported) Patient Home Medication List Home Medication List Reviewed: Yes Review of Systems Review of Systems Constitutional: see HPI; No fever; weakness Psychiatric/Neurological: No Symptoms Reported, Anxiety, Weakness Unable to complete review of systems due to altered mental status and poor historian. Past Bhhiwti-Pmcyyg-Pehlah Hx Past Med/Social Hx: Reviewed Nursing Past Med/Soc Hx Patient Social History Alcohol Use: Denies Use Recreational Drug Use: No Smoking Status: Never a Smoker 2nd Hand Smoke Exposure: No Recent Foreign Travel: No Contact w/Someone Who Travel: No Recent Hopitalizations: No ([place] FOR SYNCOPAL EPISODE) Physical Abuse: No Sexual Abuse: No Immunizations Up To Date Tetanus Booster (TDap): Less than 5yrs PED Vaccines UTD: No Date of Pneumonia Vaccine: Aug 20, 2013 Date of Influenza Vaccine: Oct 26, 2019 Seasonal Allergies Seasonal Allergies: No Past Medical History Surgeries: Yes (henry total knee replacement; rectal fistula) Gallbladder, Hysterectomy, Orthopedic Respiratory: No Currently Using CPAP: No Currently Using BIPAP: No Cardiac: Yes (edema to lower ext) Hypertension 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 Genitourinary: No Gastrointestinal: Yes C-Diff Musculoskeletal: Yes (ARTHRITIS) Arthritis, Gout Endocrine: No HEENT: Yes Cataract Hearing Impairment: Hard of Hearing 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 Did You Recieve Any Treatments: No Psychosocial: Yes Anxiety, Depression Integumentary: Yes (SHINGLES) Recent Skin Changes Blood Disorders: No Family Medical History Arthritis 19 MOTHER CVA 19 FATHER Cardiovascular disease G8 SISTER FH: colon cancer 19 MOTHER FH: prostate cancer 19 FATHER Irritable bowel syndrome daughter Renal stone 19 FATHER daughter No Pertinent Family Hx Physical Exam Vital Signs Vital Signs - First Documented 12/04/19 13:31 Temp 36.5 Pulse 80 Resp 18 B/P (MAP) 171/76 (107) Pulse Ox 94 O2 Delivery Nasal Cannula Capillary Refill : Height, Weight, BMI Height: 5'5.00" Weight: 170lbs. 0.0oz. 77.960859xf; 32.39 BMI Method:Estimated General Appearance: WD/WN, Anxious, Mild Distress HEENT: PERRL/EOMI, Pharynx Normal, Other (tongue with bite daniela abrasions to tip.) Neck: Full Range of Motion, Normal Inspection, Non Tender, Supple Respiratory: Lungs Clear, Normal Breath Sounds Cardiovascular: Regular Rate, Rhythm, No Murmur Gastrointestinal: Non Tender, Soft Back: Normal Inspection, No CVA Tenderness, No Vertebral Tenderness Extremity: Normal Inspection, Normal Range of Motion, Non Tender Neurologic/Psychiatric: Alert, Other (confused but does follow some simple commands especially when redirected verbally.) Skin: Normal Color, Warm/Dry Progress/Results/Core Measures Suspected Sepsis SIRS Temperature: Pulse: Respiratory Rate: Laboratory Tests 12/04/19 13:35: White Blood Count 6.3 Blood Pressure / Mean: Laboratory Tests 12/04/19 13:35: Creatinine 0.91, Platelet Count 148, Total Bilirubin 0.4 Results/Orders Lab Results Laboratory Tests Test 12/04/19 13:35 12/04/19 13:55 Range/Units White Blood Count 6.3 4.3-11.0 10^3/uL Red Blood Count 3.74 L 4.35-5.85 10^6/uL Hemoglobin 11.8 11.5-16.0 G/DL Hematocrit 38 35-52 % Mean Corpuscular Volume 100 H 80-99 FL Mean Corpuscular Hemoglobin 32 25-34 PG Mean Corpuscular Hemoglobin Concent 32 32-36 G/DL Red Cell Distribution Width 15.8 H 10.0-14.5 % Platelet Count 148 130-400 10^3/uL Mean Platelet Volume 11.2 H 7.4-10.4 FL Neutrophils (%) (Auto) 73 42-75 % Lymphocytes (%) (Auto) 16 12-44 % Monocytes (%) (Auto) 9 0-12 % Eosinophils (%) (Auto) 2 0-10 % Basophils (%) (Auto) 0 0-10 % Neutrophils # (Auto) 4.6 1.8-7.8 X 10^3 Lymphocytes # (Auto) 1.0 1.0-4.0 X 10^3 Monocytes # (Auto) 0.6 0.0-1.0 X 10^3 Eosinophils # (Auto) 0.1 0.0-0.3 10^3/uL Basophils # (Auto) 0.0 0.0-0.1 10^3/uL Sodium Level 140 135-145 MMOL/L Potassium Level 4.6 3.6-5.0 MMOL/L Chloride Level 107 98-107 MMOL/L Carbon Dioxide Level 19 L 21-32 MMOL/L Anion Gap 14 5-14 MMOL/L Blood Urea Nitrogen 15 7-18 MG/DL Creatinine 0.91 0.60-1.30 MG/DL Estimat Glomerular Filtration Rate 59 BUN/Creatinine Ratio 16 Glucose Level 118 H 70-105 MG/DL Calcium Level 10.5 H 8.5-10.1 MG/DL Corrected Calcium 10.7 H 8.5-10.1 MG/DL Magnesium Level 1.8 1.6-2.4 MG/DL Total Bilirubin 0.4 0.1-1.0 MG/DL Aspartate Amino Transf (AST/SGOT) 34 5-34 U/L Alanine Aminotransferase (ALT/SGPT) 13 0-55 U/L Alkaline Phosphatase 66 40-136 U/L Troponin I < 0.028 <0.028 NG/ML C-Reactive Protein High Sensitivity 0.85 H 0.00-0.50 MG/DL Total Protein 7.1 6.4-8.2 GM/DL Albumin 3.7 3.2-4.5 GM/DL Urine Color YELLOW Urine Clarity SL CLOUDY Urine pH 6.0 5-9 Urine Specific [place] >=1.030 1.016-1.022 Urine Protein 2+ H NEGATIVE Urine Glucose (UA) NEGATIVE NEGATIVE Urine Ketones NEGATIVE NEGATIVE Urine Nitrite NEGATIVE NEGATIVE Urine Bilirubin NEGATIVE NEGATIVE Urine Urobilinogen 0.2 < = 1.0 MG/DL Urine Leukocyte Esterase NEGATIVE NEGATIVE Urine RBC (Auto) TRACE-I NEGATIVE Urine RBC 2-5 H /HPF Urine WBC 0-2 /HPF Urine Squamous Epithelial Cells 2-5 /HPF Urine Crystals NONE /LPF Urine Bacteria TRACE /HPF Urine Casts PRESENT /LPF Urine Hyaline Casts 2-5 H /LPF Urine Mucus SMALL H /LPF Urine Culture Indicated NO My Orders Orders - ANDRIA KENNEDY MD Cbc With Automated Diff (12/04/19 13:44) Comprehensive Metabolic Panel (12/04/19 13:44) Hs C Reactive Protein (12/04/19 13:44) Magnesium (12/04/19 13:44) Troponin I (12/04/19 13:44) Ua Culture If Indicated (12/04/19 13:44) Ct Head/Cervical Spine Wo (12/04/19 13:44) Monitor-Rhythm Ecg Trace Only (12/04/19 13:44) Straight Cath For Spec.-Adult (12/04/19 13:44) Ed Iv/Invasive Line Start (12/04/19 13:44) Ns Iv 500 Ml (Sodium Chloride 0.9%) (12/04/19 13:44) Medications Given in ED Current Medications Medications Dose Ordered Sig/Sunita Route Start Time Stop Time Status Last Admin Dose Admin Sodium Chloride 500 ml @ 0 mls/hr Q0M ONCE IV 12/04/19 13:44 12/04/19 13:47 DC 12/04/19 13:58 500 MLS/HR Vital Signs/I&O 12/04/19 13:31 Temp 36.5 Pulse 80 Resp 18 B/P (MAP) 171/76 (107) Pulse Ox 94 O2 Delivery Nasal Cannula Capillary Refill : Progress Note : Progress Note Seen and evaluated. IV, labs, UA, CT head and neck ordered. Normal saline 500 mL bolus. Monitor patient. 1630: Findings discussed with the patient's family. We did have very reji an in-depth discussion regarding patient's care and current situation. While she has some features of seizure, syncope is more likely. We will go ahead and do seizure precautions. I have discussed the case with Dr. Nixon and he accepts patient for admission, observation status and will see the family later tonight likely. In discussion with the family, I did discuss concerns for end-of-life decline which she seems to be showing some features above. We did discuss patient's CODE STATUS and she is DO NOT RESUSCITATE. They were appreciative of the conversation. We will continue to evaluate although patient and family will consider evaluation based on patient's needs comfort as well as the medical condition. Right now they would appreciate observation visit and further evaluation as indicated without pursuing high risk and/or painful procedures. Patient to be admitted observation status with seizure precautions. 1640: Patient is doing a little better and actually recognizes all 3 of her daughters. She is talking and taking ice chips without difficulty. Diagnostic Imaging Diagonstic Imaging: CT Plain Films/CT/US/NM/MRI: c-spine, head Comments [facility], [place] NAME: JESSICA PAYAN [facility] REC#: [id number] PT STATUS: REG ER : 1935 PHYSICIAN: ANDRIA KENNEDY MD ADMIT DATE: 12/04/19/ER Draft Date of Exam:12/04/19 CT HEAD/CERVICAL SPINE WO PROCEDURE: CT head and CT cervical spine without contrast. TECHNIQUE: Multiple contiguous axial images were obtained through the brain and cervical spine without the use of intravenous contrast. Sagittal and coronal reformations through the cervical spine were then performed. Auto Exposure Controls were utilized during the CT exam to meet ALARA standards for radiation dose reduction. INDICATION: Confusion. Correlation is made with prior CT from 10/31/2019. CT Head: FINDINGS: Ventricles and sulci are stable in appearance and appropriate for the patient's age. Moderate periventricular hypodensity is noted consistent with senescent change. No sulcal effacement or midline shift is detected. No acute intra-axial or extra-axial hemorrhage is detected. Cisterns are patent. Visualized paranasal sinuses are clear. IMPRESSION: Senescent changes. No acute intracranial process is detected. CT cervical spine: FINDINGS: Curvature and alignment is normal. Multilevel cervical spondylosis is seen with variable disc space narrowing and marginal spurring. There is multilevel facet arthropathy. No fractures are seen. Odontoid is intact. Prevertebral tissues are within normal limits. IMPRESSION: Cervical spondylosis. No acute fracture is detected. Dictated on workstation # [id number] Dict: 12/04/19 1434 Trans: 12/04/19 1441 [id number] Interpreted by: GLO ULLOA MD Electronically signed by: Departure Communication (Admissions) Time/Spoke to Admitting Phy: 16:05 Impression Primary Impression: Syncope Qualified Codes: R55 - Syncope and collapse Disposition: ADMITTED INPATIENT Condition: Stable Admissions Decision to Admit Reason: Admit from ER (General) Decision to Admit/Date: Dec 04, 2019 Time/Decision to Admit Time: 16:05 Departure-Patient Inst. Referrals: AWA NIXON MD (PCP/Family) Primary Care Physician ANDRIA KENNEDY MD Dec 04, 2019 14:00
[2019-12-04 14:03] LABS: BILIRUBIN,URINE NEGATIVE (NEGATIVE); CLARITY,URINE SL CLOUDY; COLOR,URINE YELLOW; GLUCOSE, URINE (UA) NEGATIVE (NEGATIVE); KETONES,URINE NEGATIVE (NEGATIVE); LEUKOCYTE ESTERASE ,URINE NEGATIVE (NEGATIVE); NITRITE,URINE NEGATIVE (NEGATIVE); PROTEIN,URINE 2+ (NEGATIVE)
[2019-12-04 14:07] LABS: ALANINE AMINOTRANSFERASE 13 U/L (0-55); ALBUMIN 3.7 GM/DL (3.2-4.5); ALKALINE PHOSPHATASE 66 U/L (40-136); BILIRUBIN,TOTAL 0.4 MG/DL (0.1-1.0); BUN/CREATININE RATIO 16; CALCIUM 10.5 MG/DL (8.5-10.1); CARBON DIOXIDE 19 MMOL/L (21-32); CHLORIDE 107 MMOL/L (98-107); CREATININE SERUM 0.91 MG/DL (0.60-1.30); GFR ESTIMATED 59; GLUCOSE 118 MG/DL (70-105); MAGNESIUM 1.8 MG/DL (1.6-2.4); POTASSIUM 4.6 MMOL/L (3.6-5.0); SODIUM 140 MMOL/L (135-145); TOTAL PROTEIN 7.1 GM/DL (6.4-8.2)
[2019-12-04 14:15] LABS: BACTERIA,URINE TRACE /HPF; WBC,URINE 0-2 /HPF
--- NOTE | 2019-12-04 14:41 | Diagnostic Imaging Report ---
PROCEDURE: CT head and CT cervical spine without contrast. TECHNIQUE: Multiple contiguous axial images were obtained through the brain and cervical spine without the use of intravenous contrast. Sagittal and coronal reformations through the cervical spine were then performed. Auto Exposure Controls were utilized during the CT exam to meet ALARA standards for radiation dose reduction. INDICATION: Confusion. Correlation is made with prior CT from 10/31/2019. CT Head: FINDINGS: Ventricles and sulci are stable in appearance and appropriate for the patient's age. Moderate periventricular hypodensity is noted consistent with senescent change. No sulcal effacement or midline shift is detected. No acute intra-axial or extra-axial hemorrhage is detected. Cisterns are patent. Visualized paranasal sinuses are clear. IMPRESSION: Senescent changes. No acute intracranial process is detected. CT cervical spine: FINDINGS: Curvature and alignment is normal. Multilevel cervical spondylosis is seen with variable disc space narrowing and marginal spurring. There is multilevel facet arthropathy. No fractures are seen. Odontoid is intact. Prevertebral tissues are within normal limits. IMPRESSION: Cervical spondylosis. No acute fracture is detected. Dictated by: Dictated on workstation # [id number]
[2019-12-04 16:55] VITALS: BP 160/76
[2019-12-04] MEDS ORDERED: LORazepam INJ 2 MG/ML (ATIVAN) VIAL IV PRN (17:15)
[2019-12-04] MEDS ORDERED: ONDANSETRON 4 MG/2 ML (SDV) Z0FRAN IV PRN (17:15)
[2019-12-04] MEDS ORDERED: CATHETER FLUSH 10 ML SYR IV PRN (17:15)
--- NOTE | 2019-12-04 17:47 | NUR ---
JESSICA PAYAN admitted to room 432-1, with an admitting diagnosis of Syncope, on 12/04/19 from ED via stretcher, accompanied by staff and family. JESSICA PAYAN introduced to surroundings, call light, bed controls, phone, TV, temperature control, lights, meal times, smoking policy, visitor policy, side rail policy, bathrooms and showers. Patient Rights given to patient in the handbook. JESSICA PAYAN verbalizes understanding that [facility] is not responsible for the loss or damage to any personal effects or valuables that are kept in the patients possession during their hospitalization. The following Patient Care Plans were discussed with the patient and family: Discharge Planning, medications, pain management, and dehydration. JESSICA PAYAN verbalizes understanding of Interdisciplinary Patient Education. Patient and/or family were informed about the Rapid Response Team and its purpose.
[2019-12-04] MEDS: NS IV 1000 ML 1,000 ML IV SCH (17:58)
[2019-12-04] MEDS ORDERED: ACETAMINOPHEN 500 MG TAB (TYLENOL) PO PRN (18:30)
--- NOTE | 2019-12-04 19:07 | History & Physicial ---
History of Present Illness History of Present Illness Reason for visit/HPI 83-year-old female presents to emergency department via EMS after having a syncopal episode at her home in [facility]. There was also the question that this possibly may be a seizure since she was frothing at the mouth as well as clenching her upper extremity close to her body. Patient is currently living at home but does have 24 hour home health supervision with home health aide. She does have a history of confusion as she is getting older. She did not have any recent episodes of cough, congestion, fever or gastrointestinal symptoms. Date of Admission Dec 04, 2019 at 16:15 Date Seen by a Provider: Dec 04, 2019 Time Seen by a Provider: 18:30 I consulted on this patient on 12/04/19 19:01 Attending Physician Tom Nixon MD Admitting Physician Tom Nixon MD Consult Allergies and Home Medications Allergies Coded Allergies: No Known Drug Allergies (Unverified , 10/04/13) Home Medications Allopurinol 100 Mg Tablet, 100 MG PO DAILY, (Reported) Citalopram Hydrobromide 10 Mg Tablet, 10 MG PO DAILY, (Reported) Fenofibrate,Micronized 134 Mg Capsule, 134 MG PO DAILY, (Reported) Hydrochlorothiazide 25 Mg Tablet, 25 MG PO DAILY, (Reported) Meclizine HCl 25 Mg Tablet, 25 MG PO TID PRN for DIZZINESS, (Reported) Metronidazole 250 Mg Tablet, 250 MG PO BID, (Reported) Saccharomyces Boulardii 250 Mg Capsule, 250 MG PO BID, (Reported) Patient Home Medication List Home Medication List Reviewed: Yes Past Pukpbbl-Nkihxl-Xunrbh Hx Patient Social History Marrital Status: Alcohol Use: Denies Use Recreational Drug Use: No Smoking Status: Never a Smoker 2nd Hand Smoke Exposure: No Recent Foreign Travel: No Contact w/other who traveled: No Recent Hopitalizations: No ([place] FOR SYNCOPAL EPISODE) Recent Infectious Disease Expo: No Immunizations Up To Date Tetanus Booster (TDap): Less than 5yrs Pediatric: No Date of Pneumonia Vaccine: Nov 20, 2018 Date of Influenza Vaccine: Oct 26, 2019 Seasonal Allergies Seasonal Allergies: No Surgeries Yes (henry total knee replacement; rectal fistula) Gallbladder, Hysterectomy, Orthopedic Respiratory No Currently Using CPAP: No Currently Using BIPAP: No Cardiovascular Yes (edema to lower ext) Hypertension 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 Genitourinary No Gastrointestinal Yes C-Diff Musculoskeletal Yes (ARTHRITIS) Arthritis, Gout Endocrine History of Endocrine Disorders: No HEENT History of HEENT Disorders: Yes HEENT Disorders: Cataract Hearing Impairment: Hard of Hearing Cancer No (HEMANGIOMA BEHIND LIVER) Liver Did You Recieve Any Treatments: No Psychosocial History of Psychiatric Problem: Yes Behavioral Health Disorders: Anxiety, Depression Integumentary History of Skin or Integumenta: Yes (SHINGLES) Skin/Integumentary Disorders: Recent Skin Changes Blood Transfusions History of Blood Disorders: No Family Medical History Significant Family History: No Pertinent Family Hx Family Hx: Arthritis 19 MOTHER CVA 19 FATHER Cardiovascular disease G8 SISTER FH: colon cancer 19 MOTHER FH: prostate cancer 19 FATHER Irritable bowel syndrome daughter Renal stone 19 FATHER daughter Review of Systems Constitutional: see HPI Physical Exam Vital Signs Vital Signs - First Documented 12/04/19 13:31 Temp 36.5 Pulse 80 Resp 18 B/P (MAP) 171/76 (107) Pulse Ox 94 O2 Delivery Nasal Cannula Capillary Refill : Less Than 3 Seconds Height, Weight, BMI Height: 5'5.00" Weight: 170lbs. 0.0oz. 77.732075yt; 35.70 BMI Method:Estimated General Appearance: No Apparent Distress (On the floor and she is resting comfortably) Eyes: Bilateral Eye Normal Inspection, Bilateral Eye PERRL HEENT: Pharynx Normal (But she is noted to have bit the left side of her tongue. Hemostasis noted) Neck: Normal Inspection, Supple Respiratory: Lungs Clear Cardiovascular: Regular Rate, Rhythm; No Diastolic Murmur, No Systolic Murmur, No Tachycardia Gastrointestinal: Soft Rectal: Deferred Back: Normal Inspection Extremity: Normal Capillary Refill Neurologic/Psychiatric: Alert, Other (She is somewhat confused) Skin: Normal Color Comments [place], [place] NAME: JESSICA PAYAN [facility] REC#: [id number] PT STATUS: REG ER : 1935 PHYSICIAN: ANDRIA KENNEDY MD ADMIT DATE: 12/04/19/ER Signed Date of Exam:12/04/19 CT HEAD/CERVICAL SPINE WO PROCEDURE: CT head and CT cervical spine without contrast. TECHNIQUE: Multiple contiguous axial images were obtained through the brain and cervical spine without the use of intravenous contrast. Sagittal and coronal reformations through the cervical spine were then performed. Auto Exposure Controls were utilized during the CT exam to meet ALARA standards for radiation dose reduction. INDICATION: Confusion. Correlation is made with prior CT from 10/31/2019. CT Head: FINDINGS: Ventricles and sulci are stable in appearance and appropriate for the patient's age. Moderate periventricular hypodensity is noted consistent with senescent change. No sulcal effacement or midline shift is detected. No acute intra-axial or extra-axial hemorrhage is detected. Cisterns are patent. Visualized paranasal sinuses are clear. IMPRESSION: Senescent changes. No acute intracranial process is detected. CT cervical spine: FINDINGS: Curvature and alignment is normal. Multilevel cervical spondylosis is seen with variable disc space narrowing and marginal spurring. There is multilevel facet arthropathy. No fractures are seen. Odontoid is intact. Prevertebral tissues are within normal limits. IMPRESSION: Cervical spondylosis. No acute fracture is detected. Dictated by: Dictated on workstation # [id number] Dict: 12/04/19 1434 Trans: 12/04/19 1553 [id number] Interpreted by: GLO ULLOA MD Electronically signed by: GLO ULLOA MD 12/04/19 1553 Assessment/Plan Assessment and Plan 1. Syncope with collapseetiology uncertain but orthostatic hypotension which she has had in the past is a possibility. We'll also look into possibility of seizure although she has no history of seizure. -Patient admitted for observation for further cardiovascular monitoring -Will look into EEG most likely will be done outpatient -Will restart her home medications as appropriate -In a.m. Will consider discharge to home or possibly inpatient rehabilitation if qualified Admission Diagnosis 1. Syncope with collapse Admission Status: Observation Reason for Inpatient Admission: Further monitoring of cardiovascular symptoms. Will arrange for EEG most likely outpatient Clinical Quality Measures DVT/VTE Risk/Contraindication: Risk Factor Score Per Nursin RFS Level Per Nursing on Admit: 4+=Very High TOM NIXON MD Dec 04, 2019 19:07
[2019-12-04] MEDS: ENOXAPARIN 40 MG/0.4 ML (LOVENOX) SYR SC SCH (19:28)
[2019-12-04 20:10] VITALS: BP 176/74
--- NOTE | 2019-12-04 21:10 | NUR ---
Dr. Alfred notified of BP at 176/74 (manual) with hr at 52. (Vital machine obtained pressure at 203/80). Instructed to monitor only.
[2019-12-05] VITALS (7 sets, daily range): BP systolic 157–188; BP diastolic 68–86
[2019-12-05 04:46] LABS: BASOPHILS % (AUTO) 0 % (0-10); EOSINOPHILS # (AUTO) 0.1 10^3/uL (0.0-0.3); EOSINOPHILS % (AUTO) 1 % (0-10); HEMATOCRIT 33 % (35-52); HEMOGLOBIN 10.7 G/DL (11.5-16.0); LYMPHOCYTES # (AUTO) 0.8 X 10^3 (1.0-4.0); LYMPHOCYTES % (AUTO) 11 % (12-44); MEAN CORPUSCULAR HEMOGLOBIN 32 PG (25-34); MEAN CORPUSCULAR HGB CONC 32 G/DL (32-36); MEAN CORPUSCULAR VOLUME 101 FL (80-99); MEAN PLATELET VOLUME 11.3 FL (7.4-10.4); MONOCYTES # (AUTO) 0.6 X 10^3 (0.0-1.0); MONOCYTES % (AUTO) 9 % (0-12); NEUTROPHILS # (AUTO) 5.6 X 10^3 (1.8-7.8); NEUTROPHILS % (AUTO) 79 % (42-75); PLATELET COUNT 119 10^3/uL (130-400); RED CELL DISTRIBUTION WIDTH 15.3 % (10.0-14.5)
[2019-12-05 05:06] LABS: ALANINE AMINOTRANSFERASE 11 U/L (0-55); ALBUMIN 3.3 GM/DL (3.2-4.5); ALKALINE PHOSPHATASE 59 U/L (40-136); BILIRUBIN,TOTAL 0.4 MG/DL (0.1-1.0); BUN/CREATININE RATIO 16; CALCIUM 9.9 MG/DL (8.5-10.1); CARBON DIOXIDE 20 MMOL/L (21-32); CHLORIDE 111 MMOL/L (98-107); CREATININE SERUM 0.77 MG/DL (0.60-1.30); GFR ESTIMATED > 60; GLUCOSE 98 MG/DL (70-105); POTASSIUM 3.6 MMOL/L (3.6-5.0); SODIUM 141 MMOL/L (135-145); TOTAL PROTEIN 5.9 GM/DL (6.4-8.2)
--- NOTE | 2019-12-05 07:02 | Progress Note ---
Subjective Date Seen by a Provider: Dec 05, 2019 Time Seen by a Provider: 07:15 Subjective/Events-last exam Patient lying comfortably in bed. She is communicating but is somewhat disoriented Objective Exam Vital Signs Date Time Temp Pulse Resp B/P (MAP) Pulse Ox O2 Delivery O2 Flow Rate FiO2 12/05/19 04:30 37.7 64 20 166/73 (104) 92 Nasal Cannula 2.50 12/05/19 01:00 80 12/05/19 00:00 36.8 65 21 180/75 (110) 97 Nasal Cannula 2.50 12/04/19 23:59 Nasal Cannula 2.00 12/04/19 20:10 37.3 52 15 176/74 (108) 98 Nasal Cannula 2.50 12/04/19 20:00 98 Nasal Cannula 2.00 12/04/19 19:00 63 12/04/19 17:40 68 12/04/19 17:30 Nasal Cannula 2.00 12/04/19 16:55 36.3 56 20 160/76 99 Nasal Cannula 2.50 12/04/19 16:55 36.3 56 20 160/76 (104) 99 Nasal Cannula 2.50 2.50 12/04/19 16:53 78 18 165/78 (107) 97 12/04/19 13:31 36.5 80 18 171/76 (107) 94 Nasal Cannula I & O 12/05/19 07:00 Intake Total 950 ml Output Total 1525 ml Balance -575 ml Capillary Refill : Less Than 3 Seconds General Appearance: No Apparent Distress Neck: Normal Inspection Respiratory: Lungs Clear Cardiovascular: Regular Rate, Rhythm Gastrointestinal: soft Neurologic/Psychiatric: Alert, Disoriented Skin: Normal Color Results Lab Laboratory Tests 12/04/19 13:35: White Blood Count 6.3, Red Blood Count 3.74L, Hemoglobin 11.8, Hematocrit 38, Mean Corpuscular Volume 100H, Mean Corpuscular Hemoglobin 32, Mean Corpuscular Hemoglobin Concent 32, Red Cell Distribution Width 15.8H, Platelet Count 148, Mean Platelet Volume 11.2H, Neutrophils (%) (Auto) 73, Lymphocytes (%) (Auto) 16, Monocytes (%) (Auto) 9, Eosinophils (%) (Auto) 2, Basophils (%) (Auto) 0, Neutrophils # (Auto) 4.6, Lymphocytes # (Auto) 1.0, Monocytes # (Auto) 0.6, Eosinophils # (Auto) 0.1, Basophils # (Auto) 0.0, Sodium Level 140, Potassium Le tammy 4.6, Chloride Level 107, Carbon Dioxide Level 19L, Anion Gap 14, Blood Urea Nitrogen 15, Creatinine 0.91, Estimat Glomerular Filtration Rate 59, BUN/Creatinine Ratio 16, Glucose Level 118H, Calcium Level 10.5H, Corrected Calcium 10.7H, Magnesium Level 1.8, Total Bilirubin 0.4, Aspartate Amino Transf (AST/SGOT) 34, Alanine Aminotransferase (ALT/SGPT) 13, Alkaline Phosphatase 66, Troponin I < 0.028, C-Reactive Protein High Sensitivity 0.85H, Total Protein 7.1, Albumin 3.7 12/04/19 13:55: Urine Color YELLOW, Urine Clarity SL CLOUDY, Urine pH 6.0, Urine Specific [place] >=1.030, Urine Protein 2+H, Urine Glucose (UA) NEGATIVE, Urine Ketones NEGATIVE, Urine Nitrite NEGATIVE, Urine Bilirubin NEGATIVE, Urine Urobilinogen 0.2, Urine Leukocyte Esterase NEGATIVE, Urine RBC (Auto) TRACE-I, Urine RBC 2-5H , Urine WBC 0-2, Urine Squamous Epithelial Cells 2-5, Urine Crystals NONE, Urine Bacteria TRACE, Urine Casts PRESENT, Urine Hyaline Casts 2-5H, Urine Mucus SMALLH, Urine Culture Indicated NO 12/05/19 04:24: White Blood Count 7.0, Red Blood Count 3.31L, Hemoglobin 10.7L, Hematocrit 33L, Mean Corpuscular Volume 101H, Mean Corpuscular Hemoglobin 32, Mean Corpuscular Hemoglobin Concent 32, Red Cell Distribution Width 15.3H, Platelet Count 119L, Mean Platelet Volume 11.3H, Neutrophils (%) (Auto) 79H, Lymphocytes (%) (Auto) 11L, Monocytes (%) (Auto) 9, Eosinophils (%) (Auto) 1, Basophils (%) (Auto) 0, Neutrophils # (Auto) 5.6, Lymphocytes # (Auto) 0.8L, Monocytes # (Auto) 0.6, Eosinophils # (Auto) 0.1, Basophils # (Auto) 0.0, Sodium Level 141, Potassium Level 3.6, Chloride Level 111H, Carbon Dioxide Level 20L, Anion Gap 10, Blood Urea Nitrogen 12, Creatinine 0.77, Estimat Glomerular Filtration Rate > 60, BUN/Creatinine Ratio 16, Glucose Level 98, Calcium Level 9.9, Corrected Calcium 10.5H, Total Bilirubin 0.4, Aspartate Amino Transf (AST/SGOT) 22, Alanine Aminotransferase (ALT/SGPT) 11, Alkaline Phosphatase 59, Total Protein 5.9L, Albumin 3.3 Assessment/Plan Assessment/Plan Assess & Plan/Chief Complaint 1. Syncope with collapseetiology uncertain but orthostatic hypotension which she has had in the past is a possibility. We'll also look into possibility of seizure although she has no history of seizure. -Patient admitted for observation for further cardiovascular monitoring -Will look into EEG most likely will be done outpatient -Will restart her home medications as appropriate -In a.m. Will consider discharge to home or possibly inpatient rehabilitation if qualified 12/05 -Check with eligibility for inpatient rehabilitation versus home care -Arrange for EEG 2. HTN -monitoring continues Clinical Quality Measures Admission Status Admission Dx 1. Syncope with collapse DVT/VTE Risk/Contraindication: Risk Factor Score Per Nursin RFS Level Per Nursing on Admit: 4+=Very High AWA NIXON MD Dec 05, 2019 07:02
[2019-12-05] MEDS ORDERED: ACET-2267 PO (09:37)
--- NOTE | 2019-12-05 09:38 | NUR ---
SPOKE WITH THE PATIENTS FAMILY MEMBER IN THE ROOM. I CALLED [facility] FOR A LIST OF RECENTLY FILLED MEDICATIONS AND WENT OVER IT WITH HER. [facility] FILLED: 09-26-19 HCTZ 25MG DAILY #90 (STATES THIS HAS BEEN DISCONTINUED) 09-26-19 FENOFIBRATE 134MG DAILY #90 09-26-19 ALLOPURINOL 100MG DAILY #90 09-26-19 CITALOPRAM 10MG DAILY #90 09-26-19 FLAGYL 250MG BID #180 (STATES THEY ARE TRANSITIONING OFF OF THIS, RIGHT NOW SHE IS TAKING IT TWICE DAILY ON MON, , . AND AFTER 12-14-19 WILL DISCONTINUE IT COMPLETELY. SHE USES MECLIZINE PRN, FLORASTOR BID, AND TYLENOL 500MG HS OTC.
[2019-12-05] MEDS: NS IV 1000 ML 1,000 ML IV SCH (12:03)
--- NOTE | 2019-12-05 13:00 | Diagnostic Imaging Report ---
INDICATION: Fall pain in the right shoulder. Time of exam 11:06 AM 2 views right shoulder were obtained. The glenohumeral and acromioclavicular alignment appear normal. No definite fracture is seen. Acromiohumeral space is normal. IMPRESSION: No acute bony abnormalities detected. Dictated by: Dictated on workstation # [id number]
--- NOTE | 2019-12-05 13:01 | Diagnostic Imaging Report ---
INDICATION: Fall and right arm pain. Time of exam 11:04 AM 2 views right humerus are obtained. Alignment at the shoulder and elbow appears normal. Humerus appears intact. Tiny calcific density adjacent to the proximal humerus is noted and appears to be chronic. IMPRESSION: No acute bony abnormality is detected. Dictated by: Dictated on workstation # [id number]
--- NOTE | 2019-12-05 13:26 | Occ Therapy Progress Note ---
Therapy Progress Note OT order received, chart reviewed. Pt. has multiple family members in room and finishing lunch. OT will evaluate later in afternoon. 1310 1, visit YONI DIAZ OT Dec 05, 2019 13:26
[2019-12-05] MEDS ORDERED: PATIENT MAY USE OWN MEDS, ALL MC SCH (14:30)
--- NOTE | 2019-12-05 14:33 | Physical Therapy Evaluation ---
PT Evaluation-General Medical Diagnosis Admission Date Dec 04, 2019 at 16:15 Medical Diagnosis: syncope Onset Date: Dec 04, 2019 Therapy Diagnosis Therapy Diagnosis: generalized weakness/debility Height/Weight Height (Feet): 5 Height (Inches): 5.00 Weight (Pounds): 170 Weight (Ounces): 0.0 Precautions Precautions/Isolations: Seizure, Fall Prevention, Standard Precautions, Pressure Ulcer Referral Physician: Tima Reason for Referral: Evaluation/Treatment Medical History Pertinent Medical History: Arthritis, Dementia, HTN Current History ER secondary to seizure like activity and syncope Reviewed History: Yes Social History Home: Single Level Current Living Status: 24/7 care Prior Prior Level of Function SCALE: Activities may be completed with or without assistive devices. 4-Jddadvhthm-vbkwlwb completes the activity by him/herself with no assistance from a helper. 5-Set-up or Clean-up Assistance-helper sets up or cleans up; patient completes activity. [place] assists only prior to or following the activity. 4-Supervision or Touching Assistance-helper provides verbal cues and/or touching/steadying and/or contact guard assistance as patient completes acti vity. Assistance may be provided throughout the activity or intermittently. 3-Partial/Moderate Assistance-helper does LESS THAN HALF the effort. Joiner lifts, holds or supports trunk or limbs, but provides less than half the effort. 2-Substantial/Maximal Assistance-helper does MORE THAN HALF the effort. Joiner lifts or holds trunk or limbs and provides more than half the effort. 9-Zxqohjvcl-jbufhc does ALL the effort. Patient does none of the effort to complete the activity. Or, the assistance of 2 or more helpers is required for the patient to complete the activity. If activity was not attempted, code reason: 7-Patient Refused. 9-Not Applicable-not attempted and the patient did not perform the activity before the current illness, exacerbation or injury. 10-Not Attempted due to Environmental Limitations-(lack of equipment, weather restraints, etc.). 88-Not Attempted due to Medical Conditions or Safety Concerns. Bed Mobility: 3 Transfers (B,C,W/C): 3 Gait: 3 Stairs: 3 Indoor Mobility (Ambulation): Needed Some Help Stairs: Needed Some Help Prior Devices Use: Walker PT Evaluation-Current Subjective Patient is very confused. Family present Objective Patient Orientation: Confused Attachments: Woo Catheter, IV ROM/Strength ROM Lower Extremities bilateral LE WFL Strength Lower Extremities 3/5 grossly bilateral LE Integumentary/Posture Integumentary refer to nursing notes Bladder Incontinence: Woo Cath Posture slight trunk flexed posture Neuromuscular (Tone, Coordination, Reflexes) grossly intact Sensory Vision: Wears Glasses Hearing: Functional Sensation Right Lower Extremit: Intact Sensation Left Lower Extremity: Intact Transfers Roll Left to Right (QC): 3 Sit to Lying (QC): 3 Lying to Sitting/Side of Bed(Q: 3 Sit to Stand (QC): 3 Chair/Zvh-am-Seygc Xfer(QC): 3 Gait Does the Patient Walk?: Yes Mode of Locomotion: Walk Anticipated Mode of Locomotion: Walk Walk 10 feet (QC): 4 Walk 50 ft with 2 Turns(QC): 4 Walk 150 ft (QC): 4 Gait Assistive Device: FWW Comments/Gait Description patient is easily distracted and require cues to return to task Balance Sitting Static: Fair Sitting Dynamic: Fair Standing Static: Fair Standing Dynamic: Fair Assessment/Needs 83 y.o. female, will benefit from skilled PT to address functional strength and mobility to improve current LOF to safely return to home with 24/7 care at maximum LOF. 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 Goals Photocopying Machine Operator Goals PT Assisted Goals Time Frame: Dec 14, 2019 Roll Left & Right (QC): 5 Sit to Lying (QC): 4 Lying-Sitting on Side/Bed(QC): 4 Sit to Stand (QC): 4 Chair/Fdm-cs-Kvbkj Xfer(QC): 4 Toilet Transfer (QC): 4 Car Transfer (QC): 4 Does the Patient Walk: Yes Walk 10 feet (QC): 4 Walk 50ft with 2 Turns (QC): 4 Walk 150 ft (QC): 4 PT Plan Problem List Problem List: Activity Tolerance, Functional Strength, Safety, Balance, Gait, Transfer, Bed Mobility Treatment/Plan Treatment Plan: Continue Plan of Care Treatment Plan: Bed Mobility, Education, Functional Activity Merry, Functional Strength, Gait, Safety, Therapeutic Exercise, Transfers Treatment Duration: Dec 14, 2019 Frequency: 6 times per week Estimated Hrs Per Day: .25 hour per day Patient and/or Family Agrees t: Yes Time/GCodes Time In: 1330 Time Out: 1348 Total Billed Treatment Time: 18 Total Billed Treatment 1 visit EVMod 18 min SHERRY,JANN PT Dec 05, 2019 14:33
[2019-12-05] MEDS ORDERED: ACETAMINOPHEN 500 MG TAB (TYLENOL) PO PRN (14:45)
--- NOTE | 2019-12-05 14:47 | Occupational Therapy Eval ---
OT Evaluation-General/PLF Medical Diagnosis Admission Date Dec 04, 2019 at 16:15 Medical Diagnosis: syncope/possible seizure Onset Date: Dec 04, 2019 Therapy Diagnosis Therapy Diagnosis: Weakness, Decreased ADL skills Height/Weight Height (Feet): 5 Height (Inches): 5.00 Weight (Pounds): 170 Weight (Ounces): 0.0 Precautions Precautions/Isolations: Seizure, Fall Prevention, Standard Precautions, Pressure Ulcer Safety Interventions: Bed Exit Alarm, Reorient-PRN Weight Bear Status Weight Bearing Restriction: Weight Bearing/Tolerated Referral Physician: Tima Referral Reason: Activity Tolerance, Self Care, Evaluation/Treatment, Strengthening/ROM Medical History Pertinent Medical History: Arthritis, Dementia, HTN Additional Medical History Bilateral TKR Current History Pt. has 24 hours supervision at home. Pt. had possible syncopal episode with caregiver present. Family is unsure of what happened exactly. They report pt. more confused this date and is reporting right shoulder pain. Reviewed History: Yes Social History Home: Single Level Current Living Status: 12/06 care Entry Into Home: Stairs With Railing Steps Into Home: 2 ADL-Prior Level of Function SCALE: Activities may be completed with or without assistive devices. 6-Gnszqgzpvr-dubfque completes the activity by him/herself with no assistance from a helper. 5-Set-up or Clean-up Assistance-helper sets up or cleans up; patient completes activity. [place] assists only prior to or following the activity. 4-Supervision or Touching Assistance-helper provides verbal cues and/or touching/steadying and/or contact guard assistance as patient completes activity. Assistance may be provided throughout the activity or intermittently. 3-Partial/Moderate Assistance-helper does LESS THAN HALF the effort. [place] lifts, holds or supports trunk or limbs, but provides less than half the effort. 2-Substantial/Maximal Assistance-helper does MORE THAN HALF the effort. [place] lifts or holds trunk or limbs and provides more than half the effort. 9-Bprykkbhc-hnmwro does ALL the effort. Patient does none of the effort to complete the activity. Or, the assistance of 2 or more helpers is required for the patient to complete the activity. If activity was not attempted, code reason: 7-Patient Refused. 9-Not Applicable-not attempted and the patient did not perform the activity before the current illness, exacerbation or injury. 10-Not Attempted due to Environmental Limitations-(lack of equipment, weather restraints, etc.). 88-Not Attempted due to Medical Conditions or Safety Concerns. ADL PLOF Comments Pt. has caregiver assist through week for ADLs, cooking, cleaning, and transportation. Pt. utilizes walker throughout house, but occasionally forgets it. Family stays with her on the weekends. They state that pt. is unsafe when donning underwear and pants while seated on side of bed, as she bends too far. Pt. has collection clerk, but it is too far. They report that currently, pt. is much more confused than what is usual. Self Care: Needed Some Help Functional Cognition: Needed Some Help DME/Equipment: Bath Chair, Grab Bars, Shower DME/Equipment Comments Walker Occupation: Retired from [employer] Self: No OT Current Status Subjective Pt. reports that right shoulder is sore with movement. Does not report pain level. Pt. very confused as to what happened. Reports intermittent confusion as to where she is. Family is present and is able to guide her. Appearance Pt. up in chair. Alert but confused. Mental Status/Objective Patient Orientation: Confused Attachments: IV Current Glasses/Contacts: Yes Hand Dominance: Right Upper Extremity ROM Left- WFL Right- Very guarded with moving right shoulder. OT attempts PROM and pt. allows approximately 60 degrees. Full elbow flexion noted. Full wrist. Limited forearm supination. Upper Extremity Coordination Right- Functional to feed self with spoon. Upper Extremity Strength Right hand- 3/5 Right shoulder- not tested due to pain. Left UE- WFL for age ADL-Treatment Eating (QC): 5 (Set up) Lower Body Dressing (QC): 1 On/Off Footwear (QC): 1 Toileting Hygiene (QC): 1 (Per family) OT encourages pt. to doff/don slipper socks. Pt. unable to do so. Confused as to how to initiate this process. Family reports that pt. had BM earlier, but was unable to cleanse self. Pt. has bidet at home. Family reports that pt. has caregiver assistance for ADLs, but is able to do many of them herself with supervision. OT provided gentle PROM to pt's tolerance with right shoulder. Noted slight swelling and bruising. Pt. guarded with it. X-rays clear for fx and alignment. At this time, pt. is confused. Family reports that earlier, pt. did not recognize her son or daughter in law. All needs are met in room. Education OT Patient Education: Correct positioning, Exercise program, Progress toward Goal/Update tx plan, Purpose of tx/functional activities, Reviewed precautions, Rehab process Teaching Recipient: Patient, Family Teaching Methods: Demonstration, Discussion Response to Teaching: Unable to Return Demonstration, Unable to Comprehend, Reinforcement Needed OT Short Term Goals Short Term Goals Time Frame: Dec 12, 2019 Eatin Oral hygiene: 5 Lower body dressin (Mod assist with the use of AE for safety at home.) Putting on/taking off footwear: 3 OT Fpc Goals Fpc Goals Time Frame: Dec 19, 2019 Eating (QC): 5 Oral Hygiene (QC): 5 Lower Body Dressing (QC): 3 (Min assist with AE for safety) On/Off Footwear (QC): 3 OT will initiate and facilitate AE training for LE dressing, as family reports this was a safety issue at home. Will also provide gentle PROM/AAROM to right shoulder for comfort and range, as well as facilitate HEP for strengthening with therapy sponge/theraband. Additional Goals: 1-Demonstrate ADL Tasks, 2-Verbalize Understanding, 3- ImproveStrength/Merry 1=Demonstrate adherence to instructed precautions during ADL tasks. 2=Patient will verbalize/demonstrate understanding of assistive devices/modifications for ADL. 3=Patient will improve strength/tolerance for activity to enable patient to perform ADL's. Will continue to monitor pt's cognition for safety with functional tasks. OT Education/Plan Problem List/Assessment Assessment: Decreased Activ Tolerance, Decreased Safety Aware, Decreased UE Strength, Dependent Transfers, Edema, Impaired Bed Mobility, Impaired Cognition, Impaired Coordination, Impaired Funct Balance, Impaired I ADL's, Impaired Self- Care Skills, Restricted Funct UE ROM Discharge Recommendations Plan/Recommendations: Continue POC Therapy Discharge Recommendati: 24 Hour Supervision Treatment Plan/Plan of Care Treatment,Training & Education: Yes Patient would benefit from OT for education, treatment and training to promote independence in ADL's, mobility, safety and/or upper extremity function for ADL's. Plan of Care: ADL Retraining, Caregiver Training, Functional Mobility, UE Funct Exercise/Act Treatment Duration: Dec 19, 2019 Frequency: 5 times per week Estimated Hrs Per Day: .5 hour per day Agreement: Yes Rehab Potential: Fair Time/GCodes Start Time: 14:00 Stop Time: 14:30 Total Time Billed (hr/min): 30 Billed Treatment Time 1, EVH x 15minutes, Ex x 15minutes YONI DIAZ OT Dec 05, 2019 14:47
[2019-12-05] MEDS: ENOXAPARIN 40 MG/0.4 ML (LOVENOX) SYR SC SCH (18:20)
[2019-12-05] MEDS ORDERED: metroNIDAZOLE 250 MG (FLAGYL) TAB PO SCH (21:00)
[2019-12-06 03:13] VITALS: BP 184/81
--- NOTE | 2019-12-06 07:35 | Progress Note ---
Subjective Date Seen by a Provider: Dec 06, 2019 Time Seen by a Provider: 07:25 Subjective/Events-last exam Patient is very talkative but is confused with her word choice. She does not appear to be in any distress. Her daughter is present today and states she has been very agitated and confused throughout the pharmacy services representative. Objective Exam Vital Signs Date Time Temp Pulse Resp B/P (MAP) Pulse Ox O2 Delivery O2 Flow Rate FiO2 12/06/19 03:13 37.5 63 16 184/81 (115) 94 Room Air 12/06/19 01:00 62 12/05/19 23:45 37.8 63 16 188/80 (116) 94 Room Air 12/05/19 20:15 Room Air 12/05/19 19:00 63 12/05/19 19:00 37.0 62 14 167/75 (105) 96 Room Air 12/05/19 16:00 36.5 58 15 186/86 (119) 96 Room Air 12/05/19 12:07 61 12/05/19 12:00 36.8 61 18 161/84 (109) 92 Nasal Cannula 2.00 12/05/19 08:00 36.8 62 18 157/68 (97) 91 Nasal Cannula 2.00 12/05/19 08:00 92 Nasal Cannula 2.00 I & O 12/06/19 07:00 Intake Total 1230 ml Output Total 1580 ml Balance -350 ml Capillary Refill : Less Than 3 Seconds General Appearance: No Apparent Distress HEENT: PERRL/EOMI Neck: Full Range of Motion Respiratory: Lungs Clear Cardiovascular: Regular Rate, Rhythm; No Irregularly Irregular Gastrointestinal: soft Extremity: Other (She is having difficulty with full range of motion of the right upper extremity) Neurologic/Psychiatric: Alert, Other (Orientation is off) Skin: Normal Color Assessment/Plan Assessment/Plan Assess & Plan/Chief Complaint 1. Syncope with collapseetiology uncertain but orthostatic hypotension which she has had in the past is a possibility. We'll also look into possibility of seizure although she has no history of seizure. -Patient admitted for observation for further cardiovascular monitoring -Will look into EEG most likely will be done outpatient -Will restart her home medications as appropriate -In a.m. Will consider discharge to home or possibly inpatient rehabilitation if qualified 12/05 -Check with eligibility for inpatient rehabilitation versus home care -Arrange for EEG 12/06 -online services manager for inpatient rehabilitation evaluation today 2. HTN -monitoring continues 3. Confusion -MRI this morning. On her initial admission it was unclear whether she may have had a seizure or perhaps even stroke. CT was nondiagnostic at that time. Clinical Quality Measures Admission Status Admission Dx 1. Syncope with collapse DVT/VTE Risk/Contraindication: Risk Factor Score Per Nursin RFS Level Per Nursing on Admit: 4+=Very High AWA NIXON MD Dec 06, 2019 07:35
[2019-12-06] MEDS ORDERED: LORazepam 0.5 MG (ATIVAN) TABLET PO NR (07:41)
[2019-12-06 08:00] VITALS: BP 180/77
[2019-12-06] MEDS ORDERED: FENOFIBRATE 134 MG (LOFIBRA) CAPSULE PO SCH (09:00)
[2019-12-06] MEDS ORDERED: ALLOPURINOL 100 MG (ZYLOPRIM) TAB PO SCH (09:00)
--- NOTE | 2019-12-06 09:18 | ST Cognitive Linguistic Eval ---
Speech Evaluation-General Medical Diagnosis syncope/possible seizure Onset Date: Dec 04, 2019 Therapy Diagnosis Therapy Diagnosis: Cognitive-Communication Referral Referring Physician: Dr. Alfred Medical History Pertinent Medical History: Arthritis, Dementia, HTN Reviewed History: Yes Social History Current Living Status: Alone (Patient reports living alone at home with round the clock help.) Speech PLF-Current Status Prior Level of Function Patient lived at home with 24-hour home health support. Subjective Patient was alert and cooperative for all evaluation tasks. Patient was lying in her bed for the duration of tasks. Patient was aware that she was in the hospital but unclear on how she got here. Language Eval: Auditory Comprehends Simple Yes/No Ques: Functional Indent/Objects Multiple [place]: Functional Ident/Pics in Multiple [place]: Mild Follows 1-Step Commands: Functional Follows Complex Directions: Mild Follows General Conversations: Functional Language Eval: Verbal Language Completes Spontaneous Greeting: Functional Produces Auto, Serial Info: Functional Imitates Simple Words/Phrases: Mild Word Finding: Mild Requests Basic Needs: Functional States Basic Personal Info: Mild Expresses Complex Ideas: Mild Objective Cognitive Domain Attention: WNL Memory: Moderate Problem Solving: Mild Executive Functions: Mild Visuospatial Skills: WNL Composite Severity Rating: Moderate Clock Drawing Severity Rating: Mild Objective Formal/Standardized Tests [facility] Mental Status (UMS) Examination was administered. Results Patient was administered the SLUMS and scored 15/30 which is indicative of a moderate dementia level of cognitive function. Oral Motor/Speech Production Within functional limits. Impression Patient was admitted to the acute floor s/p syncopal episode. Patient scored a 15/30 on the SLUMS which is indicative of a moderate cognitive level of deficits. Patient will receive skilled ST services to address cognitive deficits in the areas of memory, problem-solving, and safety awareness to improve overall cognitive-communication skills. Speech Short Term Goals Short Term Goals Short Term Goals 1. Patient will complete memory tasks with 80% or greater accuracy with minimal cues. 2. Patient will complete problem-solving tasks with 80% or greater accuracy with minimal cues. 3. Patient will complete safety awareness tasks with 80% or greater accuracy with minimal cues. Speech Auto Glass Worker Goals Mcfp Goals Patient will improve cognitive-communication necessary for safety and daily living tasks with minimal assist. Speech-Plan Patient/Family Goals Patient/Family Goals: Patient reports wanting to return home to prior living situation. Treatment Plan Speech Therapy Treatment Plan: Continue Plan of Care Treatment Duration: Dec 13, 2019 Frequency: 4 times per week Estimated Hrs Per Day: .5 hour per day Rehab Potential: Fair Barriers to Learning: Moderate cognitive deficits Pt/Family Agrees to Plan: Yes Safety Risks/Education Teaching Recipient: Patient, Family Teaching Methods: Demonstration, Discussion Response to Teaching: Verbalize Understanding Education Topics Provided: Patient was educated on the benefits of receiving skilled ST services to increase cognitive-communication skills. Time Speech Therapy Time In: 08:30 Speech Therapy Time Out: 08:45 Total Billed Time: 15 Billed Treatment Time 1, SPSNDCOMP TRACI Robles Dec 06, 2019 09:18
--- NOTE | 2019-12-06 09:44 | NUR ---
IRF Evaluation Order to evaluate patient for the ARU. Chart review complete and findings discussed with Dr. Segundo - patient denied admission. This denial is due to patient functioning near baseline and not expected to significantly benefit from the rehabilitation program. CM/SS notified. Thank you for this referral.
[2019-12-06] MEDS: NS IV 1000 ML 1,000 ML IV SCH (10:15)
--- NOTE | 2019-12-06 11:15 | Physical Therapy Daily Note ---
PT Daily Note-Current Subjective Patient is very confused and has difficulty remaining on task. Family present. Mental Status Patient Orientation: Confused Attachments: Woo Catheter, IV Transfers SCALE: Activities may be completed with or without assistive devices. 5-Fasvacdkaq-qdbnkgv completes the activity by him/herself with no assistance from a helper. 5-Set-up or Clean-up Assistance-helper sets up or cleans up; patient completes activity. [place] assists only prior to or following the activity. 4-Supervision or Touching Assistance-helper provides verbal cues and/or touching/steadying and/or contact guard assistance as patient completes activity. Assistance may be provided throughout the activity or intermittently. 3-Partial/Moderate Assistance-helper does LESS THAN HALF the effort. [place] lifts, holds or supports trunk or limbs, but provides less than half the effort. 2-Substantial/Maximal Assistance-helper does MORE THAN HALF the effort. [place] lifts or holds trunk or limbs and provides more than half the effort. 1-Teezdvvma-xvckkh does ALL the effort. Patient does none of the effort to complete the activity. Or, the assistance of 2 or more helpers is required for the patient to complete the activity. If activity was not attempted, code reason: 7-Patient Refused. 9-Not Applicable-not attempted and the patient did not perform the activity before the current illness, exacerbation or injury. 10-Not Attempted due to Environmental Limitations-(lack of equipment, weather restraints, etc.). 88-Not Attempted due to Medical Conditions or Safety Concerns. Sit to Stand (QC): 3 Gait Training Does the Patient Walk?: Yes Distance: 250' Walk 10 feet (QC): 3 Walk 50 ft with 2 Turns(QC): 3 Walk 150 ft (QC): 3 Gait Assistive Device: FWW easily distracted and unsafe for ambulate without assistance Exercises Seated Therapy Exercises: Long arc quads Seated Reps: 12 Assessment Patient requires continuous redirection to remain on task and this is unsuccessful. Patient remains up in recliner with needs met. PT Usp Goals Certified Professional Ergonomist Goals PT Certified Professional Ergonomist Goals Time Frame: Dec 14, 2019 Roll Left & Right (QC): 5 Sit to Lying (QC): 4 Lying-Sitting on Side/Bed(QC): 4 Sit to Stand (QC): 4 Chair/Phh-da-Geczc Xfer(QC): 4 Toilet Transfer (QC): 4 Car Transfer (QC): 4 Does the Patient Walk: Yes Walk 10 feet (QC): 4 Walk 50ft with 2 Turns (QC): 4 Walk 150 ft (QC): 4 PT Plan Treatment/Plan Treatment Plan: Continue Plan of Care Treatment Plan: Bed Mobility, Education, Functional Activity Merry, Functional Strength, Gait, Safety, Therapeutic Exercise, Transfers Treatment Duration: Dec 14, 2019 Frequency: 6 times per week Estimated Hrs Per Day: .25 hour per day Patient and/or Family Agrees t: Yes Time/GCodes Time In: 1000 Time Out: 1011 Total Billed Treatment Time: 11 Total Billed Treatment 1 visit FA 11 min JANN POWELL PT Dec 06, 2019 11:15
--- NOTE | 2019-12-06 11:35 | Occupational Ther Daily Note ---
OT Current Status-Daily Note Subjective Pt sitting upright in recliner with daughter present. Daughter states pt is very confused today, pt confused her daughter for someone else and pt currently thinks she is at work. Pt agreeable to OT tx with focus on UE exercises. Mental Status/Objective Patient Orientation: Confused Attachments: Woo Catheter, IV ADL-Treatment Therapy Code Descriptions/Definitions Functional Otter Measure: 0=Not Assessed/NA 4=Minimal Assistance 1=Total Assistance 5=Supervision or Setup 2=Maximal Assistance 6=Modified Otter 3=Moderate Assistance 7=Complete IndependenceSCALE: Activities may be completed with or without assistive devices. 1-Kihmycwudm-trjbqlm completes the activity by him/herself with no assistance from a helper. 5-Set-up or Clean-up Assistance-helper sets up or cleans up; patient completes activity. [place] assists only prior to or following the activity. 4-Supervision or Touching Assistance-helper provides verbal cues and/or touching/steadying and/or contact guard assistance as patient completes activity. Assistance may be provided throughout the activity or intermittently. 3-Partial/Moderate Assistance-helper does LESS THAN HALF the effort. [place] lifts, holds or supports trunk or limbs, but provides less than half the effort. 2-Substantial/Maximal Assistance-helper does MORE THAN HALF the effort. [place] lifts or holds trunk or limbs and provides more than half the effort. 8-Iclywxucl-dvmsjc does ALL the effort. Patient does none of the effort to complete the activity. Or, the assistance of 2 or more helpers is required for the patient to complete the activity. If activity was not attempted, code reason: 7-Patient Refused. 9-Not Applicable-not attempted and the patient did not perform the activity before the current illness, exacerbation or injury. 10-Not Attempted due to Environmental Limitations-(lack of equipment, weather restraints, etc.). 88-Not Attempted due to Medical Conditions or Safety Concerns. Other Treatment Pt sitting upright in recliner talking about the work she needs to do today, believing she was currently at work. Her daughter reoriented pt to her being in the hospital to which pt replied "I know". Daughter states pt is supposed to be getting an MRI at some point today. Pt able to complete x10 reps BUE exercises in order to increase functional endurance and strength. Pt completed BUE shoulder flexion (to approx 70 degrees), elbow flexion/extension, and RUE wrist flexion/extension & finger flexion/extension. LUE wrist exercises not complete on this date secondary to pt's IV placement on left wrist. Pt required rest breaks between exercises but states she feels good. Pt states she needs to go to the bathroom, her daughter asked "do you need to pee?" and pt stated "yes". Pt's daughter reoriented her to her catheter educating her that she does not need to go to the restroom to void urine. Post OT session, pt seated upright in recliner with daughter present, call light in reach and all needs met. Education OT Patient Education: Correct positioning, Energy conservation, Exercise program, Progress toward Goal/Update tx plan, Purpose of tx/functional activitie s Teaching Recipient: Patient Teaching Methods: Demonstration, Discussion Response to Teaching: Verbalize Understanding, Return Demonstration OT Short Term Goals Short Term Goals Time Frame: Dec 12, 2019 Eatin Oral hygiene: 5 Lower body dressin (Mod assist with the use of AE for safety at home.) Putting on/taking off footwear: 3 OT Commercial Installer Goals Commercial Installer Goals Time Frame: Dec 19, 2019 Eating (QC): 5 Oral Hygiene (QC): 5 Lower Body Dressing (QC): 3 (Min assist with AE for safety) On/Off Footwear (QC): 3 OT will initiate and facilitate AE training for LE dressing, as family reports this was a safety issue at home. Will also provide gentle PROM/AAROM to right shoulder for comfort and range, as well as facilitate HEP for strengthening with therapy sponge/theraband. Additional Goals: 1-Demonstrate ADL Tasks, 2-Verbalize Understanding, 3- ImproveStrength/Merry 1=Demonstrate adherence to instructed precautions during ADL tasks. 2=Patient will verbalize/demonstrate understanding of assistive devices/modifications for ADL. 3=Patient will improve strength/tolerance for activity to enable patient to perform ADL's. OT Education/Plan Problem List/Assessment Assessment: Decreased Activ Tolerance, Decreased UE Strength, Impaired Cognition, Impaired I ADL's, Impaired Self-Care Skills Discharge Recommendations Plan/Recommendations: Continue POC Treatment Plan/Plan of Care Treatment,Training & Education: Yes Patient would benefit from OT for education, treatment and training to promote independence in ADL's, mobility, safety and/or upper extremity function for ADL's. Plan of Care: ADL Retraining, Caregiver Training, Functional Mobility, UE Funct Exercise/Act Treatment Duration: Dec 19, 2019 Frequency: 5 times per week Estimated Hrs Per Day: .5 hour per day Agreement: Yes Rehab Potential: Fair Time/GCodes Start Time: 10:39 Stop Time: 10:55 Total Time Billed (hr/min): 16 Billed Treatment Time 1, EX CRISTOFER STILL OT Dec 06, 2019 11:35
[2019-12-06] MEDS ORDERED: LORazepam 0.5 MG (ATIVAN) TABLET PO ONE (11:45)
[2019-12-06 12:00] VITALS: BP 176/74
--- NOTE | 2019-12-06 12:25 | Diagnostic Imaging Report ---
PROCEDURE: MR imaging of the brain without contrast. TECHNIQUE: Multiplanar, multisequence MR imaging of the brain was performed without contrast. INDICATION: Confusion. COMPARISON: No prior MRI studies are available for comparison. FINDINGS: The diffusion-weighted images are without evidence of diffusion restriction. The normal expected flow-voids within the carotid siphons are seen. Ventricles and sulci are prominent consistent with the patient's age. Moderate periventricular and subcortical white matter signal abnormalities are noted consistent with chronic microvascular ischemia. No acute intra-axial or extra axial hemorrhage is seen although study is moderately compromised due to patient motion. Corpus callosum is unremarkable. The sella and parasellar structures are unremarkable. IMPRESSION: Chronic and senescent changes. No acute intra-cranial process is detected. Dictated by: Dictated on workstation # [id number]
--- NOTE | 2019-12-06 13:08 | Discharge Summary ---
Diagnosis/Chief Complaint Date of Admission Dec 04, 2019 at 16:15 Date of Discharge December 06, 2019 Discharge Date: Dec 06, 2019 Discharge Time: 15:00 Admission Diagnosis Admission Diagnosis 1. Syncope with collapseetiology uncertain but orthostatic hypotension which she has had in the past is a possibility. We'll also look into possibility of seizure although she has no history of seizure. 2. HTN Discharge Diagnosis 1. Syncope with collapseorthostatic hypotension versus seizure disorder (less likely) 2. HTN 3. Confusion 4. Poor mobility Reason Hospital Visit 83-year-old female presents to emergency department via EMS after having a syncopal episode at her home in [facility]. There was also the question that this possibly may be a seizure since she was frothing at the mouth as well as clenching her upper extremity close to her body. Patient is currently living at home but does have 24 hour home health supervision with home health aide. She does have a history of confusion as she is getting older. She did not have any recent episodes of cough, congestion, fever or gastrointestinal symptoms. Discharge Summary Hospital Course Was the Problem List Reviewed?: Yes Hospital Course Patient initially admitted for observation status on December 04, 2019 after apparently having an unconscious spell while at home. Her home provider was present with her and called 911. She ultimately was seen in the emergency room and underwent CT of the head which was read out as no acute findings. She also had questionable seizure as her arms were noted to be locked up close to her body at home. She did not seem postictal but she was somewhat confused in the emergency department. On the floor she was monitored for further neuro testing as well as cardiovascular monitoring. She was confused during the course of her stay. She was communicating well but some of her communication was not making good sense. She was taking fluids well and eating. She also underwent MRI of the brain in the morning of December 06, 2019 with no acute process noted. She was felt ready for killed facility and was released to be a [place] during the afternoon of December 06, 2019. Labs Laboratory Tests 12/04/19 13:35: Red Blood Count 3.74L, Mean Corpuscular Volume 100H, Red Cell Distribution Width 15.8H, Mean Platelet Volume 11.2H, Carbon Dioxide Level 19L, Glucose Level 118H, Calcium Level 10.5H, Corrected Calcium 10.7H, C-Reactive Protein High Sensitivity 0.85H 12/04/19 13:55: Urine Protein 2+H, Urine RBC 2-5H, Urine Hyaline Casts 2-5H, Urine Mucus SMALLH 12/05/19 04:24: Red Blood Count 3.31L, Mean Corpuscular Volume 101H, Red Cell Distribution Width 15.3H, Mean Platelet Volume 11.3H, Carbon Dioxide Level 20L, Corrected Calcium 10.5H, Hemoglobin 10.7L, Hematocrit 33L, Platelet Count 119L, Neutrophils (%) (Auto) 79H, Lymphocytes (%) (Auto) 11L, Lymphocytes # (Auto) 0.8L, Chloride Level 111H, Total Protein 5.9L Procedures None. Discharge Physical Examination Allergies: Coded Allergies: No Known Drug Allergies (Unverified , 10/04/13) Vitals & I&Os Vital Signs Date Time Temp Pulse Resp B/P (MAP) Pulse Ox O2 Delivery O2 Flow Rate FiO2 12/06/19 08:06 Room Air 12/06/19 08:00 38.0 71 18 180/77 (111) 91 12/05/19 12:00 2.00 General Appearance: No Acute Distress Respiratory: Clear to Auscultation Cardiovascular: Regular Rate, Other (no irregular irregular rhythm) Abdominal: Soft Extremities: Other (bruises noted on the right posterior shoulder region) Skin: No Rashes Neuro: Normal Speech (but she is confused) Discharge Home Medications Reviewed and agree with Discharge Medication list on patient's Discharge Instruction sheet Instructions to Patient/Family Please see electronic discharge instructions given to patient. Clinical Quality Measures DVT/VTE Risk/Contraindication: Risk Factor Score Per Nursin RFS Level Per Nursing on Admit: 4+=Very High AWA NIXON MD Dec 06, 2019 13:08
--- NOTE | 2019-12-06 13:13 | Discharge Inst-Skilled Nursing ---
Discharge Inst-Skilled NF Reconcile Patient Problems Problems Reviewed?: Yes Patient Instructions Patient Problems: Unresponsiveness but this corrected and may be due to orthostatic hypotension or seizure but less likely. Confusion. Poor mobility Consult/Follow Up/Orders Follow Up Appt.: [address] Tima Jones NF Admit to: [facility] Certification ([facility]) I certify that SNF services are required to be given on an inpatient basis because of the above named patient's need for usp care on a continuing basis for the conditions(s) for which he/she was receiving inpatient hospital services prior to his/her transfer to the [facility]. Assisted Facility Order: Nursing Services, Operations Research Scientist-Evaluate & Treat, Physical Therapy-Evaluate & Treat Oxygen Delivery Method: Room Air Discharge Diet: Regular Diet Daily Activity as Tolerated: Yes Resuscitation Status: Do Not Resuscitate New & Resume Previous Orders Awa Alfred Dec 06, 2019 13:12 AWA ALFRED MD Dec 06, 2019 13:13
--- NOTE | 2019-12-06 15:01 | NUR ---
CM/SS: Visited with pt and family as to plan for discharge Plan: Pt to go to [facility] today Summary: Talked with pt and family as to plan for pt. Pt has been at home and is unable to return there, but has also spent time at [facility]. Daughter is concerned as to the payment source. [facility] Massiel called and the process is explained to them. She will be able to do the Skilled bed or if not then they can utilize the [facility] Medicaid. Family requested results from MRI. This is provided by RN per conversation from physician. Family ok for pt to go to [facility]. [facility] worker Lavenr Wilde notified via message that pt will go [facility] Pt to leave at 3:30pm to go to [facility]
--- NOTE | 2019-12-06 15:04 | NUR ---
CM FINALIZED DISCHARGE PLAN: Patient is discharging to [facility] for therapies today. She has been approved for skilled at [facility] under her managed medicare replacement plan of [facility] Dual MCR replacement plan. [facility] clinical reviewer Irina gave authorization; phone number of [phone]. Massiel from [facility] has called to accept patient et she will be discharged at 3:30 p.m. Daughter at bedside called all siblings et we had a conference call answering all of their questions. They all report agreement with POC et appreciation of answering their questions. They deny any further needs are voice readiness to attempt rehabilitation of their mother.
[2019-12-06 15:45] VITALS: BP 176/74
== END 2019-12-06 15:45 ==
LOC: EDUNIT# 13:31 → ER 13:32 → 4TH 16:15
PROVIDERS: ADMIT Family Medicine; ATTEND Family Medicine
DX: R55 Syncope and collapse (principal); I10 Essential (primary) hypertension; R41.0 Disorientation, unspecified; Z96.653 Presence of artificial knee joint, bilateral; M19.91 Primary osteoarthritis, unspecified site; M10.9 Gout, unspecified; H91.90 Unspecified hearing loss, unspecified ear; Z66 Do not resuscitate; H26.9 Unspecified cataract; F32.9 Major depressive disorder, single episode, unspecified; F41.9 Anxiety disorder, unspecified; Z87.19 Personal history of other diseases of the digestive system
CPT/HCPCS: 36415; 51702; 70450; 70551; 72125; 73030; 73060; 80053; 81000; 83735; 84484; 85025; 86141; 93041; 96360; G0378

== ENCOUNTER 2019-12-25 12:54 | Inpatient (IN) | payer MEDICARE, MEDICAID ==
[~2019-12-25] VITALS: Ht 165 cm; Wt 92.7 kg
[~2019-12-25 12:54] MED LIST changes: +ACET-2267 PO; -MECL-106 PO; +MECL-149 PO
--- NOTE | 2019-12-25 13:01 | ED Neurological Problem ---
General Stated Complaint: AMS Source: EMS Exam Limitations: clinical condition History of Present Illness Date Seen by Provider: Dec 25, 2019 Time Seen by Provider: 13:00 Initial Comments 83-year-old female brought in by EMS from the long term. Patient has what is described as a possible seizure-like episode. Patient was being moved when she stiffened up and had some decreased responsiveness. Episode lasted briefly and patient was decreased responsive afterward. Patient is slowly becoming more responsive. Initially she would only respond to pain upon arrival to the ER she will respond to her name and started to try to answer questions. Patient has possibly had a previous episode like this in the past but we're unsure. No other history of present illness is available Allergies and Home Medications Allergies Coded Allergies: No Known Drug Allergies (Unverified , 10/04/13) Home Medications Acetaminophen 500 Mg Tablet, 500 MG PO HS, (Reported) Allopurinol 100 Mg Tablet, 100 MG PO DAILY, (Reported) Citalopram Hydrobromide 10 Mg Tablet, 10 MG PO DAILY, (Reported) Fenofibrate,Micronized 134 Mg Capsule, 134 MG PO DAILY, (Reported) Meclizine HCl 25 Mg Tablet, 25 MG PO TID PRN for DIZZINESS, (Reported) Metronidazole 250 Mg Tablet, 250 MG PO UD, (Reported) WEANING OFF - TAKES TWICE DAILY ON MONDAY, MONDAY, MONDAY THEN WILL DISCONTINUE 20 Saccharomyces Boulardii 250 Mg Capsule, 250 MG PO BID, (Reported) Patient Home Medication List Home Medication List Reviewed: Yes Review of Systems Review of Systems Constitutional: see HPI Psychiatric/Neurological: See HPI Review of systems limited based on patient's presentation Past Kytrzpg-Qsjbex-Haglzv Hx Past Med/Social Hx: Reviewed Nursing Past Med/Soc Hx Patient Social History 2nd Hand Smoke Exposure: No Recent Hopitalizations: No (LAWSON FOR SYNCOPAL EPISODE) Immunizations Up To Date Tetanus Booster (TDap): Less than 5yrs PED Vaccines UTD: No Date of Pneumonia Vaccine: Nov 20, 2018 Date of Influenza Vaccine: Oct 26, 2019 Seasonal Allergies Seasonal Allergies: No Past Medical History Surgeries: Yes (ehnry total knee replacement; rectal fistula) Gallbladder, Hysterectomy, Orthopedic Respiratory: No Currently Using CPAP: No Currently Using BIPAP: No Cardiac: Yes (edema to lower ext) Hypertension 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 Genitourinary: No Gastrointestinal: Yes C-Diff Musculoskeletal: Yes (ARTHRITIS) Arthritis, Gout Endocrine: No HEENT: Yes Cataract Hearing Impairment: Hard of Hearing 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 0.0oz. 77.581858rk; 35.70 BMI Method:Estimated General Appearance: no apparent distress, other (mild decreased responsive/post ictal ) HEENT: PERRL/EOMI, other (small abrasion/bite on tip of tongue ) Neck: supple Respiratory: lungs clear, normal breath sounds Extremities: normal range of motion Neurologic/Psychiatric: disoriented x 3 (limited exam based on post ictal/decreased responsive) Skin: normal color, warm/dry Progress/Results/Core Measures Results/Orders Lab Results Laboratory Tests Test 12/25/19 13:01 12/25/19 13:07 Range/Units Glucometer 116 H 70-110 MG/DL White Blood Count 5.7 4.3-11.0 10^3/uL Red Blood Count 3.97 L 4.35-5.85 10^6/uL Hemoglobin 12.7 11.5-16.0 G/DL Hematocrit 41 35-52 % Mean Corpuscular Volume 102 H 80-99 FL Mean Corpuscular Hemoglobin 32 25-34 PG Mean Corpuscular Hemoglobin Concent 31 L 32-36 G/DL Red Cell Distribution Width 16.0 H 10.0-14.5 % Platelet Count 171 130-400 10^3/uL Mean Platelet Volume 10.7 H 7.4-10.4 FL Neutrophils (%) (Auto) 69 42-75 % Lymphocytes (%) (Auto) 20 12-44 % Monocytes (%) (Auto) 8 0-12 % Eosinophils (%) (Auto) 2 0-10 % Basophils (%) (Auto) 1 0-10 % Neutrophils # (Auto) 3.9 1.8-7.8 X 10^3 Lymphocytes # (Auto) 1.1 1.0-4.0 X 10^3 Monocytes # (Auto) 0.5 0.0-1.0 X 10^3 Eosinophils # (Auto) 0.1 0.0-0.3 10^3/uL Basophils # (Auto) 0.0 0.0-0.1 10^3/uL Urine Color YELLOW Urine Clarity SL CLOUDY Urine pH 7.0 5-9 Urine Specific [place] 1.020 1.016-1.022 Urine Protein 2+ H NEGATIVE Urine Glucose (UA) NEGATIVE NEGATIVE Urine Ketones NEGATIVE NEGATIVE Urine Nitrite NEGATIVE NEGATIVE Urine Bilirubin NEGATIVE NEGATIVE Urine Urobilinogen 0.2 < = 1.0 MG/DL Urine Leukocyte Esterase NEGATIVE NEGATIVE Urine RBC (Auto) TRACE-I NEGATIVE Urine RBC 0-2 /HPF Urine WBC 0-2 /HPF Urine Squamous Epithelial Cells 0-2 /HPF Urine Crystals PRESENT H /LPF Urine Amorphous Sediment FEW LATONYA PHOSPHATE H /LPF Urine Bacteria NEGATIVE /HPF Urine Casts NONE /LPF Urine Mucus NEGATIVE /LPF Urine Culture Indicated NO Sodium Level 140 135-145 MMOL/L Potassium Level 4.0 3.6-5.0 MMOL/L Chloride Level 107 98-107 MMOL/L Carbon Dioxide Level 17 L 21-32 MMOL/L Anion Gap 16 H 5-14 MMOL/L Blood Urea Nitrogen 11 7-18 MG/DL Creatinine 1.11 0.60-1.30 MG/DL Estimat Glomerular Filtration Rate 47 BUN/Creatinine Ratio 10 Glucose Level 117 H 70-105 MG/DL Calcium Level 10.8 H 8.5-10.1 MG/DL Corrected Calcium 11.0 H 8.5-10.1 MG/DL Magnesium Level 1.8 1.6-2.4 MG/DL Total Bilirubin 0.4 0.1-1.0 MG/DL Aspartate Amino Transf (AST/SGOT) 36 H 5-34 U/L Alanine Aminotransferase (ALT/SGPT) 16 0-55 U/L Alkaline Phosphatase 91 40-136 U/L Troponin I < 0.028 <0.028 NG/ML B-Type Natriuretic Peptide 90.2 <100.0 PG/ML Total Protein 7.5 6.4-8.2 GM/DL Albumin 3.8 3.2-4.5 GM/DL TSH [place] Testing 3.19 0.35-4.94 UIU/ML Micro Results Microbiology 12/25/19 Influenza Types A,B Antigen (JUDE) - Final, Complete My Orders Orders - DIANE SOLORZANO DO Chest 1 View, Ap/Pa Only (12/25/19 13:01) Ct Head Wo (12/25/19 13:01) BNP (12/25/19 13:01) Cbc With Automated Diff (12/25/19 13:01) Comprehensive Metabolic Panel (12/25/19 13:01) Magnesium (12/25/19 13:01) Thyroid Analyzer (12/25/19 13:01) Troponin I (12/25/19 13:01) Ua Culture If Indicated (12/25/19 13:01) Blood Culture (12/25/19 13:01) Influenza A And B Antigens (12/25/19 13:01) Ekg Tracing (12/25/19 13:01) I-Stat Bedside Testing (12/25/19 13:01) Hydralazine Injection (Apresoline Inject (12/25/19 14:15) Shoulder, Right, 3 Views (12/25/19 14:15) Naproxen Tablet (Naprosyn Tablet) (12/25/19 15:00) Levetiracetam Injection (Keppra Injectio (12/25/19 21:00) Diphenhydramine Injection (Benadryl Inje (12/25/19 16:15) Diphenhydramine Injection (Benadryl Inje (12/25/19 15:59) Medications Given in ED Current Medications Medications Dose Ordered Sig/Sunita Route Start Time Stop Time Status Last Admin Dose Admin Hydralazine HCl 10 mg ONCE ONCE IV 12/25/19 14:15 12/25/19 14:16 DC 12/25/19 14:45 10 MG Naproxen 250 mg ONCE ONCE PO 12/25/19 15:00 12/25/19 15:01 DC 12/25/19 14:58 250 MG Vital Signs/I&O 12/25/19 13:00 Temp 36.4 Pulse 96 Resp 18 B/P (MAP) 142/78 (99) Pulse Ox 96 Progress Progress Note : Time: 16:09 Progress Note Patient had what appeared to be a seizure lasting approximately 45 seconds while here in the ER. Patient was started on Keppra and will be admitted for observation Departure Communication (Admissions) Time/Spoke to Admitting Phy: 15:42 We'll start Keppra. Admit patient for observation overnight. Impression Primary Impression: Witnessed seizure-like activity Disposition: ADMITTED INPATIENT Condition: Stable Admissions Decision to Admit Reason: Admit from ER (General) Decision to Admit/Date: Dec 25, 2019 Time/Decision to Admit Time: 15:42 Departure-Patient Inst. Referrals: AWA NIXON MD (PCP/Family) Primary Care Physician DIANE SOLORZANO DO Dec 25, 2019 13:01
[2019-12-25 13:18] LABS: BILIRUBIN,URINE NEGATIVE (NEGATIVE); CLARITY,URINE SL CLOUDY; COLOR,URINE YELLOW; GLUCOSE, URINE (UA) NEGATIVE (NEGATIVE); KETONES,URINE NEGATIVE (NEGATIVE); LEUKOCYTE ESTERASE ,URINE NEGATIVE (NEGATIVE); NITRITE,URINE NEGATIVE (NEGATIVE); PROTEIN,URINE 2+ (NEGATIVE)
[2019-12-25 13:19] LABS: BASOPHILS % (AUTO) 1 % (0-10); EOSINOPHILS # (AUTO) 0.1 10^3/uL (0.0-0.3); EOSINOPHILS % (AUTO) 2 % (0-10); HEMATOCRIT 41 % (35-52); HEMOGLOBIN 12.7 G/DL (11.5-16.0); LYMPHOCYTES # (AUTO) 1.1 X 10^3 (1.0-4.0); LYMPHOCYTES % (AUTO) 20 % (12-44); MEAN CORPUSCULAR HEMOGLOBIN 32 PG (25-34); MEAN CORPUSCULAR HGB CONC 31 G/DL (32-36); MEAN CORPUSCULAR VOLUME 102 FL (80-99); MEAN PLATELET VOLUME 10.7 FL (7.4-10.4); MONOCYTES # (AUTO) 0.5 X 10^3 (0.0-1.0); MONOCYTES % (AUTO) 8 % (0-12); NEUTROPHILS # (AUTO) 3.9 X 10^3 (1.8-7.8); NEUTROPHILS % (AUTO) 69 % (42-75); PLATELET COUNT 171 10^3/uL (130-400); WHITE BLOOD COUNT 5.7 10^3/uL (4.3-11.0)
[2019-12-25 13:24] LABS: AMORPHOUS SEDIMENT,UR FEW AMOR PHOSPHATE /LPF; BACTERIA,URINE NEGATIVE /HPF; RBC,URINE 0-2 /HPF; SQUAMOUS EPITHELIAL CELL,UR 0-2 /HPF; WBC,URINE 0-2 /HPF
[2019-12-25 13:34] LABS: ALANINE AMINOTRANSFERASE 16 U/L (0-55); ALBUMIN 3.8 GM/DL (3.2-4.5); ALKALINE PHOSPHATASE 91 U/L (40-136); BILIRUBIN,TOTAL 0.4 MG/DL (0.1-1.0); BUN/CREATININE RATIO 10; CALCIUM 10.8 MG/DL (8.5-10.1); CARBON DIOXIDE 17 MMOL/L (21-32); CHLORIDE 107 MMOL/L (98-107); CREATININE SERUM 1.11 MG/DL (0.60-1.30); GFR ESTIMATED 47; GLUCOSE 117 MG/DL (70-105); MAGNESIUM 1.8 MG/DL (1.6-2.4); SODIUM 140 MMOL/L (135-145); TOTAL PROTEIN 7.5 GM/DL (6.4-8.2)
--- NOTE | 2019-12-25 13:48 | Diagnostic Imaging Report ---
PROCEDURE: CT head without contrast. TECHNIQUE: Multiple contiguous axial images were obtained through the brain without the use of intravenous contrast. Auto Exposure Controls were utilized during the CT exam to meet ALARA standards for radiation dose reduction. INDICATION: Syncope. Seizure. Altered mental status. COMPARISON: MRI brain of 12/06/2019. FINDINGS: Examination is markedly limited by motion. Advanced generalized cerebral and cerebellar parenchymal volume loss. Advanced leukoaraiosis. No large intracranial hemorrhage or extra-axial fluid collection is identified. No hydrocephalus. No fractures are seen. IMPRESSION: Markedly limited exam due to motion. No acute intracranial findings are identified. Dictated by: Dictated on workstation # [id number]
--- NOTE | 2019-12-25 13:50 | NUR ---
PT REPONDS TO HER NAME AND ABLE TO ANSWER SOME QUESTIONS APROPRIATELY.
--- NOTE | 2019-12-25 13:53 | Diagnostic Imaging Report ---
INDICATION: Syncopal episode and confusion. TIME OF EXAM: 1:49 p.m. COMPARISON: Comparison is made with prior chest from 10/31/2019. The heart size is normal. The pulmonary vascularity is unremarkable. The lungs are clear. No infiltrate, effusion or pneumothorax is detected. IMPRESSION: No acute cardiopulmonary process is detected. Dictated by: Dictated on workstation # [id number]
[2019-12-25 13:55] LABS: TSH (THYROID ANALYZER) 3.19 UIU/ML (0.35-4.94)
--- NOTE | 2019-12-25 14:00 | NUR ---
PT DAUGHTER IN LAW IN ROOM WITH PT AT THIS TIME.
[2019-12-25] MEDS ORDERED: hydrALAZINE (APESOLINE) 20 MG/ML VIAL IV ONE (14:15)
[2019-12-25] MEDS: LORazepam INJ 2 MG/ML (ATIVAN) VIAL IVP ONE ×4 (14:40→16:47)
[2019-12-25] MEDS ORDERED: NAPROXEN 250 MG (NAPROSYN) TABLET PO ONE (15:00)
--- NOTE | 2019-12-25 15:25 | Diagnostic Imaging Report ---
INDICATION: Right shoulder injury, seizure. TIME OF EXAM: 03:06 p.m. FINDINGS: Three views of the right shoulder were obtained. Glenohumeral and acromioclavicular alignment appear to be maintained. No definite fracture or dislocation is seen. Acromiohumeral space is normal. IMPRESSION: No acute abnormalities detected. Dictated by: Dictated on workstation # [id number]
[2019-12-25] MEDS ORDERED: diphenhydrAMINE 50 MG/ML INJ (BENADRYL) ONE (15:59)
--- NOTE | 2019-12-25 16:10 | NUR ---
PT DAUGHTER IN LAW CALLS THIS RN TO PT ROOM FOR SEIZURE LIKE ACTIVITY. PT L ARM TWITCHING AND L FIST CLENCHED. PT EYES TWITCHING WELL. INTIALLY ABLE TO RESPOND TO QUESTIONS APROPRIATELY AND REPORTS NO PAIN. 1612- DR SOLORZANO IN ROOM EVALUATING PT. 1613- PT NO LONGER RESPONSIVE AND JAW IS CLENCHED AND ARMS ARE CONTRACTED. PT OXYGEN INCREASED TO 7L NC. PERIORAL CYANOSIS NOTED. DR. SOLORZANO INFORMED. 1614- PT BODY APPEARS TO RELAX AND NO SHAKING IS NOTED. PT O2 SAT 97% AND BREATHING IS STABILIZED. PT LIPS ARE PINK. PT REMAINS UNRESPONSIVE TO VERBAL STIMULI.
[2019-12-25] MEDS ORDERED: diphenhydrAMINE 50 MG/ML INJ (BENADRYL) IVP ONE (16:15)
[2019-12-25] MEDS ORDERED: LORazepam INJ 2 MG/ML (ATIVAN) VIAL ONE ×2 (16:34→16:42)
--- NOTE | 2019-12-25 16:35 | NUR ---
this rn called to room per pt family for seizure like activity. pt l arm shaking and l fist clinched. pt not responding to verbal cues. Dr. Corral informed.
[2019-12-25] MEDS ORDERED: LABETALOL HCL 20 MG/4 ML VIAL ONE (16:43)
[2019-12-25] MEDS: LEVETIRACETAM INJECTION 1,000 MG in NS (IVPB) 100 ML IV SCH (16:51)
--- NOTE | 2019-12-25 16:55 | NUR ---
DR. NIXON AT PT BEDSIDE. KEPPRA CONTINUES TO INFUSE. PT REMAINS UNRESPONSIVE TO VERBAL STIMULI AND L ARM CONTINUES TO SHAKE.
[2019-12-25] MEDS ORDERED: LABETALOL HCL 20 MG/4 ML VIAL IV ONE (17:00)
[2019-12-25] MEDS ORDERED: meTOprolol 5 MG/5 ML (LOPRESSOR) VIAL IV ONE (17:00)
--- NOTE | 2019-12-25 17:08 | NUR ---
PT BODY TONE MORE RELAXED AT THIS TIME. PT L HAND NO LONGER CLENCHED AND NO SHOULDER TWITCHING NOTED. PT HR 115. PT 02 SAT 99% ON 7 L. PT BP 170/90.
--- NOTE | 2019-12-25 17:18 | History & Physicial ---
History of Present Illness History of Present Illness Reason for visit/HPI 83-year-old female brought to [facility] emergency department during the early afternoon of December 25, 2019 after apparently having what look like seizure. Apparently she was being moved when she stiffened up and became with decreased responsiveness. She slowly became more responsive and was only initially responding to pain. In the emergency department she had what appeared to be a seizure-like episode. She does not have a history of seizures. She has not been having any fever. According to her daughter she has been doing quite well up until noon when this happened. Patient was recently in hospital and had EEG ordered but this has not been yet performed. She had MRI done in the hospital after recent unresponsive spell. She was not on any antiseizure medications as of yet. Date of Admission Dec 25, 2019 at 15:51 Date Seen by a Provider: Dec 25, 2019 Time Seen by a Provider: 17:00 I consulted on this patient on 12/25/19 17:12 Attending Physician Tom Nixon MD Admitting Physician Tom Nixon MD Consult Allergies and Home Medications Allergies Coded Allergies: No Known Drug Allergies (Unverified , 10/04/13) Home Medications Acetaminophen 500 Mg Tablet, 500 MG PO HS, (Reported) Allopurinol 100 Mg Tablet, 100 MG PO DAILY, (Reported) Citalopram Hydrobromide 10 Mg Tablet, 10 MG PO DAILY, (Reported) Fenofibrate,Micronized 134 Mg Capsule, 134 MG PO DAILY, (Reported) Meclizine HCl 25 Mg Tablet, 25 MG PO TID PRN for DIZZINESS, (Reported) Metronidazole 250 Mg Tablet, 250 MG PO UD, (Reported) WEANING OFF - TAKES TWICE DAILY ON MONDAY, MONDAY, MONDAY THEN WILL DISCONTINUE 20 Saccharomyces Boulardii 250 Mg Capsule, 250 MG PO BID, (Reported) Patient Home Medication List Home Medication List Reviewed: Yes Past Mczcccj-Dqlqni-Ecpffr Hx Patient Social History Marrital Status: Alcohol Use: Denies Use Recreational Drug Use: No Smoking Status: Never a Smoker 2nd Hand Smoke Exposure: No Recent Foreign Travel: No Contact w/other who traveled: No Recent Hopitalizations: No (LAWSON FOR SYNCOPAL EPISODE) Recent Infectious Disease Expo: No Immunizations Up To Date Tetanus Booster (TDap): Less than 5yrs Pediatric: No Date of Pneumonia Vaccine: Nov 20, 2018 Date of Influenza Vaccine: Oct 26, 2019 Seasonal Allergies Seasonal Allergies: No Surgeries Yes (henry total knee replacement; rectal fistula) Gallbladder, Hysterectomy, Orthopedic Respiratory No Currently Using CPAP: No Currently Using BIPAP: No Cardiovascular Yes (edema to lower ext, orthostatic hypotension) High Cholesterol, Hypertension 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 Genitourinary No Gastrointestinal Yes C-Diff Musculoskeletal Yes (ARTHRITIS) Arthritis, Gout Endocrine History of Endocrine Disorders: No HEENT History of HEENT Disorders: Yes HEENT Disorders: Cataract Hearing Impairment: Hard of Hearing Cancer No (HEMANGIOMA BEHIND LIVER) Liver Did You Recieve Any Treatments: No Psychosocial History of Psychiatric Problem: Yes Behavioral Health Disorders: Anxiety, Depression Integumentary History of Skin or Integumenta: Yes (SHINGLES) Skin/Integumentary Disorders: Recent Skin Changes Blood Transfusions History of Blood Disorders: No Family Medical History Significant Family History: No Pertinent Family Hx Family Hx: Arthritis 19 MOTHER CVA 19 FATHER Cardiovascular disease G8 SISTER FH: colon cancer 19 MOTHER FH: prostate cancer 19 FATHER Irritable bowel syndrome daughter Renal stone 19 FATHER daughter Review of Systems Constitutional: see HPI Physical Exam Vital Signs Vital Signs - First Documented 12/25/19 12/25/19 13:00 17:50 Temp 36.4 Pulse 96 Resp 18 B/P (MAP) 142/78 (99) Pulse Ox 96 O2 Delivery Nasal Cannula O2 Flow Rate 6.00 Capillary Refill : Less Than 3 Seconds Height, Weight, BMI Height: 5'5.00" Weight: 170lbs. 0.0oz. 77.073480le; 30.00 BMI Method:Estimated General Appearance: Other (Currently sleeping/postictal) HEENT: Pharynx Normal, Moist Mucous Membranes Neck: Supple Respiratory: Lungs Clear Cardiovascular: No Regular Rate, Rhythm; Tachycardia (At 130) Gastrointestinal: Normal Bowel Sounds, Soft Rectal: Deferred Extremity: Normal Capillary Refill Neurologic/Psychiatric: Disoriented, Other (Sleeping/postictal) Skin: Normal Color Comments [place], [place] NAME: ORAJESSICA M MED REC#: [id number] PT STATUS: REG ER : 1935 PHYSICIAN: DIANE SOLORZANO DO ADMIT DATE: 12/25/19/ER Draft Date of Exam:12/25/19 CT HEAD WO PROCEDURE: CT head without contrast. TECHNIQUE: Multiple contiguous axial images were obtained through the brain without the use of intravenous contrast. Auto Exposure Controls were utilized during the CT exam to meet ALARA standards for radiation dose reduction. INDICATION: Syncope. Seizure. Altered mental status. COMPARISON: MRI brain of 12/06/2019. FINDINGS: Examination is markedly limited by motion. Advanced generalized cerebral and cerebellar parenchymal volume loss. Advanced leukoaraiosis. No large intracranial hemorrhage or extra-axial fluid collection is identified. No hydrocephalus. No fractures are seen. IMPRESSION: Markedly limited exam due to motion. No acute intracranial findings are identified. Dictated on workstation # [id number] Dict: 12/25/19 1344 Trans: 12/25/19 1347 [id number] Interpreted by: SAHRA GARVEY MD Electronically signed by: Assessment/Plan Assessment and Plan 1. Unresponsiveness -Continue to monitor on [facility] medical. 2. Seizure disorder most likely accounting for number 1 -Keppra 1000 mg has been ordered and received first IV in the emergency department. She will continue with 1000 mg IV every 12 hours. -She has also available Ativan 2 mg IV if has seizure. -Will plan on getting an EEG. Will check into closest facility. -Recheck labs in the morning CBC as well as chemistry 14 3. Tachycardiasinus -We'll continue to monitor. Admission Diagnosis 1. Unresponsiveness 2. Seizure disorder most likely accounting for number 1 Admission Status: Observation TOM NIXON MD Dec 25, 2019 17:18
[2019-12-25 18:15] VITALS: BP 160/74
[2019-12-25 19:00] VITALS: BP 162/78
[2019-12-25] MEDS ORDERED: inSUlin ASPART (NovoLOG) 1 UNIT/0.01 ML (CHARGE PER UNIT) SC SCH (19:45)
[2019-12-25 20:00] VITALS: BP 176/80
[2019-12-25 21:00] VITALS: BP 157/87
[2019-12-25] MEDS ORDERED: LEVETIRACETAM INJECTION 1,000 MG in NS (IVPB) 100 ML IV SCH (21:00)
[2019-12-25] MEDS ORDERED: LORazepam INJ 2 MG/ML (ATIVAN) VIAL IV PRN (21:15)
[2019-12-25 22:00] VITALS: BP 162/69
[2019-12-25 23:00] VITALS: BP 172/82
[2019-12-25] MEDS: inSUlin ASPART (NovoLOG) 1 UNIT/0.01 ML (CHARGE PER UNIT) SC SCH (23:33)
[2019-12-26] VITALS (24 sets, daily range): BP systolic 115–184; BP diastolic 49–88
[2019-12-26 04:17] LABS: BASOPHILS % (AUTO) 0 % (0-10); EOSINOPHILS % (AUTO) 0 % (0-10); HEMATOCRIT 35 % (35-52); HEMOGLOBIN 10.9 G/DL (11.5-16.0); LYMPHOCYTES # (AUTO) 0.9 X 10^3 (1.0-4.0); LYMPHOCYTES % (AUTO) 9 % (12-44); MEAN CORPUSCULAR HEMOGLOBIN 32 PG (25-34); MEAN CORPUSCULAR HGB CONC 31 G/DL (32-36); MEAN CORPUSCULAR VOLUME 102 FL (80-99); MONOCYTES # (AUTO) 0.8 X 10^3 (0.0-1.0); MONOCYTES % (AUTO) 8 % (0-12); NEUTROPHILS # (AUTO) 8.1 X 10^3 (1.8-7.8); NEUTROPHILS % (AUTO) 82 % (42-75); PLATELET COUNT 158 10^3/uL (130-400); RED CELL DISTRIBUTION WIDTH 16.3 % (10.0-14.5); WHITE BLOOD COUNT 9.8 10^3/uL (4.3-11.0)
[2019-12-26 04:39] LABS: ALBUMIN 3.4 GM/DL (3.2-4.5); BILIRUBIN,TOTAL 0.4 MG/DL (0.1-1.0); CALCIUM 10.6 MG/DL (8.5-10.1); CREATININE SERUM 1.05 MG/DL (0.60-1.30); MAGNESIUM 1.8 MG/DL (1.6-2.4); PHOSPHORUS 2.8 MG/DL (2.3-4.7); POTASSIUM 3.6 MMOL/L (3.6-5.0); TOTAL PROTEIN 6.3 GM/DL (6.4-8.2)
[2019-12-26] MEDS: KCL 20 MEQ TAB (K-DUR) PO SCH (05:08)
[2019-12-26] MEDS: inSUlin ASPART (NovoLOG) 1 UNIT/0.01 ML (CHARGE PER UNIT) SC SCH ×3 (05:29→17:11)
[2019-12-26] MEDS: POTASSIUM CL 10MEQ/50ML IVPB 50 ML IV SCH ×2 (05:52→08:56)
[2019-12-26] MEDS ORDERED: MAGNESIUM 1 GM/100 ML IVPB 100 ML IV SCH (06:00)
[2019-12-26] MEDS ORDERED: POTASSIUM CL 10MEQ/50ML IVPB 50 ML IV SCH (06:00)
[2019-12-26] MEDS ORDERED: LACTATED RINGERS 1,000 ML IV ONE ×3 (06:21→14:15)
[2019-12-26] MEDS ORDERED: LACTATED RINGERS 1,000 ML IV SCH (06:23)
--- NOTE | 2019-12-26 06:44 | Pulmonary Consultation ---
History of Present Illness History of Present Illness Date Seen by Provider: Dec 26, 2019 Time Seen by Provider: 05:00 Date of Admission History of Present Illness 83yo presented to ED via EMS from [facility] presented secondary to seizure like episodes and unresponsiveness. Pt was very lethargic upon ED admission. No prior hx like this in the past. I am consulted for ICU management. Allergies and Home Medications Allergies Coded Allergies: No Known Drug Allergies (Unverified , 10/04/13) Home Medications Acetaminophen 325 Mg Tablet, 650 MG PO 0000,0600,1200,1800, (Reported) Enalapril Maleate 5 Mg Tablet, 5 MG PO DAILY Prescribed by: AWA NIXON on 01/03/20 0741 Levetiracetam 1,000 Mg Tablet, 1,000 MG PO BID Prescribed by: AWA NIXON on 01/03/20 0741 Meclizine HCl 25 Mg Tablet, 25 MG PO TID PRN for DIZZINESS, (Reported) Potassium Chloride 10 Meq Tablet.er, 10 MEQ PO DAILY@0700 Prescribed by: AWA NIXON on 01/03/20 0741 Saccharomyces Boulardii 250 Mg Capsule, 250 MG PO 0800,1600, (Reported) Past Pozpbgj-Lrasaw-Mtmscb Hx Past Med/Social Hx: Reviewed Nursing Past Med/Soc Hx Patient Social History Alcohol Use: Denies Use Recreational Drug Use: No Smoking Status: Never a Smoker 2nd Hand Smoke Exposure: No Recent Foreign Travel: No Contact w/Someone Who Travel: No Recent Infectious Disease Expo: No Recent Hopitalizations: No (LAWSON FOR SYNCOPAL EPISODE) Physical Abuse: No Sexual Abuse: No Mistreated: No Fear: No Immunizations Up To Date Tetanus Booster (TDap): Less than 5yrs PED Vaccines UTD: No Date of Pneumonia Vaccine: Nov 20, 2018 Date of Influenza Vaccine: Oct 26, 2019 Seasonal Allergies Seasonal Allergies: No Past Medical History Surgeries: Yes (henry total knee replacement; rectal fistula) Gallbladder, Hysterectomy, Orthopedic Respiratory: No Currently Using CPAP: No Currently Using BIPAP: No Cardiac: Yes (edema to lower ext, orthostatic hypotension) High Cholesterol, Hypertension 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 Genitourinary: No Gastrointestinal: Yes C-Diff Musculoskeletal: Yes (ARTHRITIS) Arthritis, Gout Endocrine: No HEENT: Yes Cataract Hearing Impairment: Hard of Hearing 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 0.0oz. 77.654088un; 29.75 BMI Method:Estimated Exam Exam Vital Signs Date Time Temp Pulse Resp B/P (MAP) Pulse Ox O2 Delivery O2 Flow Rate FiO2 12/26/19 06:00 79 18 124/54 (77) 97 Nasal Cannula 1.00 12/26/19 05:55 Nasal Cannula 1.00 12/26/19 05:00 78 15 124/53 (76) 97 Nasal Cannula 2.00 12/26/19 04:00 80 16 134/52 (79) 97 Nasal Cannula 2.00 12/26/19 03:59 37.6 12/26/19 03:45 Nasal Cannula 2.00 12/26/19 03:00 80 30 126/49 (74) 98 Nasal Cannula 2.00 12/26/19 02:00 84 20 147/60 (89) 97 Nasal Cannula 2.00 12/26/19 01:00 89 23 149/59 (89) 98 Nasal Cannula 2.00 12/26/19 01:00 90 12/26/19 00:00 86 25 156/58 (90) 98 Nasal Cannula 2.00 12/25/19 23:32 Nasal Cannula 2.00 12/25/19 23:29 37.3 12/25/19 23:03 Nasal Cannula 2.00 12/25/19 23:00 93 18 172/82 (112) 97 Nasal Cannula 3.00 12/25/19 22:00 83 18 162/69 (100) 98 Nasal Cannula 3.00 12/25/19 21:00 89 24 157/87 (110) 98 Nasal Cannula 3.00 12/25/19 20:00 37.1 12/25/19 20:00 Nasal Cannula 3.00 12/25/19 20:00 93 17 176/80 (112) 99 Nasal Cannula 3.00 12/25/19 19:00 100 12/25/19 19:00 96 22 162/78 (106) 99 Nasal Cannula 3.00 12/25/19 18:58 99 Nasal Cannula 3.00 12/25/19 18:15 94 20 160/74 (102) 98 Nasal Cannula 3.00 12/25/19 18:05 97 12/25/19 17:50 96 18 169/86 98 Nasal Cannula 6.00 12/25/19 13:00 36.4 96 18 142/78 (99) 96 I & O 12/26/19 07:00 Intake Total 110 ml Output Total 1100 ml Balance -990 ml Height & Weight Height: 5'5.00" Weight: 170lbs. 0.0oz. 77.252590cc; 29.75 BMI Method:Estimated General Appearance: Other (Currently sleeping/postictal) HEENT: Pharynx Normal, Moist Mucous Membranes Neck: Supple Respiratory: Lungs Clear Cardiovascular: No Regular Rate, Rhythm; Tachycardia (At 130) Capillary Refill: Less Than 3 Seconds Extremity: Normal Capillary Refill Neurologic/Psychiatric: Disoriented, Other (Sleeping/postictal) Skin: Normal Color Results Lab Laboratory Tests 12/25/19 13:07 12/26/19 03:50 Assessment/Plan Assessment/Plan Acute seizures upon admission -Pt had 4mg of IV Ativan yesterday -Keppra is ordered -No current suizure activity Lethargy - secondary to 4mg of Ativan given yesterday -Pt is moving all extremities. She will squeeze hangs upon request -CT scan done yesterday is negative -MRI was done 12/06/2019-- is negative Anemia -Monitor ADRIANO DENT DO Dec 26, 2019 06:44
[2019-12-26 07:04] LABS: ABG BASE EXCESS 2.2 MMOL/L (-2.5-2.5); ABG OXYGEN SATURATION 98 % (94-100); ABG PCO2 47 MMHG (35-45); ABG PH 7.37 (7.37-7.43); ABG PO2 95 MMHG (79-93); ABG TCO2 28.2 MMOL/L (21.0-31.0)
[2019-12-26 07:05] LABS: ALLENS TEST YES-POS; PATIENT TEMP 37.3; VENTILATOR NO
--- NOTE | 2019-12-26 07:38 | Progress Note ---
Subjective Date Seen by a Provider: Dec 26, 2019 Time Seen by a Provider: 07:30 Subjective/Events-last exam Patient currently in ICU. Her daughters are present in room upon making rounds this morning. Naomi rested comfortably throughout the night. She has not awaken since admission in the ED last evening. Patient does not appear to be having any seizure-like activity. Overnight her pulse rate has became sinus rhythm with rate very well controlled. Her blood pressure has also somewhat stabilized. Objective Exam Vital Signs Date Time Temp Pulse Resp B/P (MAP) Pulse Ox O2 Delivery O2 Flow Rate FiO2 12/26/19 06:00 79 18 124/54 (77) 97 Nasal Cannula 1.00 12/26/19 05:55 Nasal Cannula 1.00 12/26/19 05:00 78 15 124/53 (76) 97 Nasal Cannula 2.00 12/26/19 04:00 80 16 134/52 (79) 97 Nasal Cannula 2.00 12/26/19 03:59 37.6 12/26/19 03:45 Nasal Cannula 2.00 12/26/19 03:00 80 30 126/49 (74) 98 Nasal Cannula 2.00 12/26/19 02:00 84 20 147/60 (89) 97 Nasal Cannula 2.00 12/26/19 01:00 89 23 149/59 (89) 98 Nasal Cannula 2.00 12/26/19 01:00 90 12/26/19 00:00 86 25 156/58 (90) 98 Nasal Cannula 2.00 12/25/19 23:32 Nasal Cannula 2.00 12/25/19 23:29 37.3 12/25/19 23:03 Nasal Cannula 2.00 12/25/19 23:00 93 18 172/82 (112) 97 Nasal Cannula 3.00 12/25/19 22:00 83 18 162/69 (100) 98 Nasal Cannula 3.00 12/25/19 21:00 89 24 157/87 (110) 98 Nasal Cannula 3.00 12/25/19 20:00 37.1 12/25/19 20:00 Nasal Cannula 3.00 12/25/19 20:00 93 17 176/80 (112) 99 Nasal Cannula 3.00 12/25/19 19:00 100 12/25/19 19:00 96 22 162/78 (106) 99 Nasal Cannula 3.00 12/25/19 18:58 99 Nasal Cannula 3.00 12/25/19 18:15 94 20 160/74 (102) 98 Nasal Cannula 3.00 12/25/19 18:05 97 12/25/19 17:50 96 18 169/86 98 Nasal Cannula 6.00 12/25/19 13:00 36.4 96 18 142/78 (99) 96 I & O 12/26/19 07:00 Intake Total 110 ml Output Total 1100 ml Balance -990 ml Capillary Refill : Less Than 3 Seconds General Appearance: No Apparent Distress (And resting comfortably) Neck: Supple Respiratory: Lungs Clear Cardiovascular: Regular Rate, Rhythm Gastrointestinal: soft; No distended, No guarding, No rebound, No tenderness Extremity: Normal Capillary Refill Neurologic/Psychiatric: No Alert; Other (She is moving toes) Skin: Normal Color Results Lab Laboratory Tests 12/25/19 13:01: Glucometer 116H 12/25/19 13:07: White Blood Count 5.7, Red Blood Count 3.97L, Hemoglobin 12.7, Hematocrit 41, Mean Corpuscular Volume 102H, Mean Corpuscular Hemoglobin 32, Mean Corpuscular Hemoglobin Concent 31L, Red Cell Distribution Width 16.0H, Platelet Count 171, Mean Platelet Volume 10.7H, Neutrophils (%) (Auto) 69, Lymphocytes (%) (Auto) 20, Monocytes (%) (Auto) 8, Eosinophils (%) (Auto) 2, Basophils (%) (Auto) 1, Neutrophils # (Auto) 3.9, Lymphocytes # (Auto) 1.1, Monocytes # (Auto) 0.5, Eosinophils # (Auto) 0.1, Basophils # (Auto) 0.0, Urine Color YELLOW, Urine Clarity SL CLOUDY, Urine pH 7.0, Urine Specific [place] 1.020, Urine Protein 2+H , Urine Glucose (UA) NEGATIVE, Urine Ketones NEGATIVE, Urine Nitrite NEGATIVE, Urine Bilirubin NEGATIVE, Urine Urobilinogen 0.2, Urine Leukocyte Esterase NEGATIVE, Urine RBC (Auto) TRACE-I, Urine RBC 0-2, Urine WBC 0-2, Urine Squamous Epithelial Cells 0-2, Urine Crystals PRESENTH, Urine Amorphous Sediment FEW LATONYA PHOSPHATEH, Urine Bacteria NEGATIVE, Urine Casts NONE, Urine Mucus NEGATIVE, Urine Culture Indicated NO, Sodium Level 140, Potassium Level 4.0, Chloride Level 107, Carbon Dioxide Level 17L, Anion Gap 16H, Blood Urea Nitrogen 11, Creatinine 1.11, Estimat Glomerular Filtration Rate 47, BUN/Creatinine Ratio 10, Glucose Level 117H, Calcium Level 10.8H, Corrected Calcium 11.0H, Magnesium Level 1.8, Total Bilirubin 0.4, Aspartate Amino Transf (AST/SGOT) 36H, Alanine Aminotransferase (ALT/SGPT) 16, Alkaline Phosphatase 91, Troponin I < 0.028, B- Type Natriuretic Peptide 90.2, Total Protein 7.5, Albumin 3.8, TSH [place] Testing 3.19 12/25/19 23:19: Glucometer 118H 12/26/19 03:50: White Blood Count 9.8, Red Blood Count 3.42L, Hemoglobin 10.9L, Hematocrit 35, Mean Corpuscular Volume 102H, Mean Corpuscular Hemoglobin 32, Mean Corpuscular Hemoglobin Concent 31L, Red Cell Distribution Width 16.3H, Platelet Count 158, Mean Platelet Volume 11.0H, Neutrophils (%) (Auto) 82H, Lymphocytes (%) (Auto) 9L, Monocytes (%) (Auto) 8, Eosinophils (%) (Auto) 0, Basophils (%) (Auto) 0, Neutrophils # (Auto) 8.1H, Lymphocytes # (Auto) 0.9L, Monocytes # (Auto) 0.8, Eosinophils # (Auto) 0.0, Basophils # (Auto) 0.0, Sodium Level 142, Potassium Level 3.6, Chloride Level 110H, Carbon Dioxide Level 25, Anion Gap 7, Blood Urea Nitrogen 13, Creatinine 1.05, Estimat Glomerular Filtration Rate 50, BUN/Creatinine Ratio 12, Glucose Level 101, Calcium Level 10.6H, Corrected Calcium 11.1H, Magnesium Level 1.8, Total Bilirubin 0.4, Aspartate Amino Transf (AST/SGOT) 26, Alanine Aminotransferase (ALT/SGPT) 15, Alkaline Phosphatase 76, Total Protein 6.3L, Albumin 3.4, Phosphorus Level 2.8 12/26/19 06:55: Blood Gas Puncture Site R RAD, Blood Gas Patient Temperature 37.3, Arterial Blood pH 7.37, Arterial Blood Partial Pressure CO2 47H, Arterial Blood Partial Pressure O2 95H, Arterial Blood HCO3 27, Arterial Blood Total CO2 28.2, Arterial Blood Oxygen Saturation 98, Arterial Blood Base Excess 2.2, Alessandro Test YES-POS, Blood Gas Ventilator Setting NO, Blood Gas Inspired Oxygen UNKNOWN Microbiology 12/25/19 Influenza Types A,B Antigen (JUDE) - Final, Complete Assessment/Plan Assessment/Plan Assess & Plan/Chief Complaint 1. Unresponsiveness -Continue to monitor on fourth medical. 12/26 -Continuing to monitor. 2. Seizure disorder most likely accounting for number 1 -Keppra 1000 mg has been ordered and received first IV in the emergency department. She will continue with 1000 mg IV every 12 hours. -She has also available Ativan 2 mg IV if has seizure. -Will plan on getting an EEG. Will check into closest facility. -Recheck labs in the morning CBC as well as chemistry 14 12/26 -The Keppra appears to be helpful as she is now with no seizure-like activity. -Patient currently in ICU and Dr. Butts consulted 3. Tachycardia on admission 12/26 -She is in normal sinus rhythm 4. Dehydration 12/26 -IV fluids began this morning at 100 mL per hour Clinical Quality Measures Admission Status Admission Dx 1. Unresponsiveness 2. Seizure disorder most likely accounting for number 1 DVT/VTE Risk/Contraindication: Risk Factor Score Per Nursin RFS Level Per Nursing on Admit: 4+=Very High AWA NIXON MD Dec 26, 2019 07:38
[2019-12-26] MEDS: D5 LR IV SOLUTION 1,000 ML IV SCH ×3 (08:55→23:08)
[2019-12-26] MEDS: LEVETIRACETAM INJECTION 1,000 MG in NS (IVPB) 100 ML IV SCH ×2 (08:56→21:00)
--- NOTE | 2019-12-26 09:00 | Diagnostic Imaging Report ---
INDICATION: Syncopal episode with confusion. TECHNIQUE: Single view chest 3:31 AM. CORRELATION STUDY: 12/25/2019 FINDINGS: Given technique, heart size, mediastinum and vasculature while prominent overall likely stable. May be accentuated by technique and depth of inspiration. No consolidating infiltrate. IMPRESSION: 1. Overall, generally stable chest demonstrates no acute abnormality. Dictated by: Dictated on workstation # [id number]
[2019-12-26] MEDS ORDERED: ACET325T49 PO (09:09)
--- NOTE | 2019-12-26 09:13 | NUR ---
UPDATED MED REC WITH MAR FROM [facility].
--- NOTE | 2019-12-26 14:23 | NUR ---
Two daughters present: offered soothing touch and calming presence to pt who was restful throughout most of our visit. Provided active listening and spiritual support as daughters shared their concerns about the pt's seizures and their desire to not put her through extreme measures for any conditions that cannot be treated.
--- NOTE | 2019-12-26 15:47 | ST Dysphagia Evaluation ---
Speech Evaluation-General Medical Diagnosis Seizure Onset Date: Dec 26, 2019 Therapy Diagnosis Therapy Diagnosis: Oropharyngeal Dysphagia Precautions Precautions: Aspiration Referral Referring Physician: Dr. Alfred Reason for Referral: Evaluation/Treatment Medical History Pertinent Medical History: Arthritis, Dementia, HTN Reviewed History: Yes Speech PLF/Current-Dysphagia Prior Level of Function Patient lived independently at home. Subjective Patient was awake but disoriented for evaluation tasks. Patients daughter was present for the evaluation tasks and noted that patient was the most alert she's been all day at the time of the evaluation. Cognitive Status Patient Orientation: Confused, Eyes Open, Mumbles Oral Motor Skills Dentition: Natural Ability to Follow Directions: Fair Oral Expression Ability: No Impairment Voice Voice Phonatory-Based Quality: Normal Voice Pitch: Normal Voice Loudness: Mildly Soft/Quiet Face Facial Symmetry: Symmetrical Oral-Facial Assessment Oral-Facial Dentition: Normal Labial Seal Description: Weak (Weak seal via spoon) Lingual Protrusion: Normal Lingual ROM: Normal Lingual Strength: Normal Dysphagia Evaluation Consistencies Presented: Thin Liquid, Mechanical Soft, Pureed Dietary Recommendations: Mechanical Soft Liquid Recommendations: Thin Swallowing Precautions: Alternate Liquids/Solids, Double Swallow, Decreased Bolus 1/2 Tsp, Liquids from Straw, Oral Supervision Staff, Oral Supervision Caregiver, Small Bites and Sips, Sitting Upright 90 Degrees, Sitting 90 Degrees 30 Post Intake Dysphagia Evaluation Summary Patient was admitted to the ICU s/p seizure. Patient was administered thin liquid via 1/2 tsp spoon and straw and demonstrated no s/s of penetration/aspiration. Patient was then administered puree and mechanical soft consistencies via 1/2 tsp spoon and demonstrated no s/s of penetration/aspiration. It is important to note that patients overall swallow initiation was delayed, however may be due to the the reduced level of alertness. It is recommended that the patient receive a DYSPHAGIA II diet with thin liquids. Additionally, patient will utilize compensatory strategies of sitting upright, alternating solids and liquids, and small bites and sips during all meal times. Barriers to Learning Current medical status. Speech Short Term Goals Short Term Goals Short Term Goals 1. Patient will tolerate least restrictive diet without s/s of aspiration at 90% accuracy. 2. Patient will utilize compensatory strategies as trained with 90% accuracy with minimal cues. Speech Fci Goals Fci Goals Patient will maintain adequate nutrition/hydration via safe and effective swallow function. Speech-Plan Patient/Family Goals Patient/Family Goals: Patient reported wishes to return home to previous level of independence. Treatment Plan Speech Therapy Treatment Plan: Continue Plan of Care Treatment Duration: Jan 03, 2020 Frequency: 3 times per week Estimated Hrs Per Day: .25 hour per day Rehab Potential: Good Barriers to Learning: Current medical status Pt/Family Agrees to Plan: Yes Safety Risks/Education Teaching Recipient: Patient, Family Teaching Methods: Demonstration Response to Teaching: Verbalize Understanding Education Topics Provided: Patient was educated on compensatory strategies to utilize during all meal times. Time Speech Therapy Time In: 15:25 Speech Therapy Time Out: 15:40 Total Billed Time: 15 Billed Treatment Time 1 TRACI Aguirre Dec 26, 2019 15:47
[2019-12-26] MEDS ORDERED: hydrALAZINE (APESOLINE) 20 MG/ML VIAL IV SCH (19:15)
[2019-12-26] MEDS: hydrALAZINE (APESOLINE) 20 MG/ML VIAL IV PRN (23:18)
[2019-12-27] VITALS (11 sets, daily range): BP systolic 129–182; BP diastolic 56–92
[2019-12-27] MEDS: inSUlin ASPART (NovoLOG) 1 UNIT/0.01 ML (CHARGE PER UNIT) SC SCH ×4 (00:08→19:42)
[2019-12-27] MEDS: hydrALAZINE (APESOLINE) 20 MG/ML VIAL IV PRN ×2 (03:58→19:41)
[2019-12-27 04:01] LABS: BASOPHILS % (AUTO) 0 % (0-10); EOSINOPHILS # (AUTO) 0.1 10^3/uL (0.0-0.3); EOSINOPHILS % (AUTO) 1 % (0-10); HEMATOCRIT 36 % (35-52); HEMOGLOBIN 11.4 G/DL (11.5-16.0); LYMPHOCYTES # (AUTO) 0.9 X 10^3 (1.0-4.0); LYMPHOCYTES % (AUTO) 10 % (12-44); MEAN CORPUSCULAR HEMOGLOBIN 32 PG (25-34); MEAN CORPUSCULAR HGB CONC 32 G/DL (32-36); MEAN CORPUSCULAR VOLUME 101 FL (80-99); MEAN PLATELET VOLUME 11.5 FL (7.4-10.4); MONOCYTES # (AUTO) 0.7 X 10^3 (0.0-1.0); MONOCYTES % (AUTO) 9 % (0-12); NEUTROPHILS # (AUTO) 6.5 X 10^3 (1.8-7.8); NEUTROPHILS % (AUTO) 80 % (42-75); PLATELET COUNT 124 10^3/uL (130-400); RED CELL DISTRIBUTION WIDTH 16.2 % (10.0-14.5); WHITE BLOOD COUNT 8.2 10^3/uL (4.3-11.0)
[2019-12-27 04:23] LABS: CALCIUM 10.7 MG/DL (8.5-10.1); CREATININE SERUM 0.91 MG/DL (0.60-1.30); MAGNESIUM 1.5 MG/DL (1.6-2.4); PHOSPHORUS 1.7 MG/DL (2.3-4.7)
--- NOTE | 2019-12-27 04:56 | Pulmonary Progress Note ---
Subjective Date Seen by a Provider: Dec 27, 2019 Time Seen by a Provider: 04:56 Subjective/Events-last exam No seizure activity through the night. Pt is more alert however still lethargic. Family at bedside. All questions answered. Sepsis Event Evaluation Height, Weight, BMI Height: 5'5.00" Weight: 170lbs. 0.0oz. [id number]; 29.75 BMI Method:Estimated Exam Exam Vital Signs Date Time Temp Pulse Resp B/P (MAP) Pulse Ox O2 Delivery O2 Flow Rate FiO2 12/27/19 04:00 86 16 157/66 (96) Room Air 12/27/19 03:00 101 21 167/76 (106) Room Air 12/27/19 02:00 103 26 149/56 (87) Room Air 12/27/19 01:00 108 21 155/56 (89) Room Air 12/27/19 01:00 106 12/27/19 00:00 114 18 153/66 (95) Room Air 12/26/19 23:58 38.0 95 Room Air 12/26/19 23:00 104 17 184/72 (109) Room Air 12/26/19 22:00 99 20 172/78 (109) Room Air 12/26/19 21:00 96 19 147/78 (101) Room Air 12/26/19 20:00 Room Air 94 12/26/19 20:00 102 24 137/87 (104) Room Air 12/26/19 20:00 37.6 94 Room Air 12/26/19 19:00 82 18 139/78 (98) 91 Room Air 12/26/19 19:00 82 12/26/19 18:00 73 172/78 (109) 95 Room Air 12/26/19 17:00 79 19 177/79 (111) 98 Room Air 12/26/19 16:00 81 11 161/84 (109) 97 Room Air 12/26/19 15:09 37.7 12/26/19 15:00 79 16 173/77 (109) 93 Room Air 12/26/19 14:00 73 20 165/76 (105) 95 Room Air 12/26/19 13:00 66 12/26/19 13:00 68 25 167/73 (104) 95 Room Air 12/26/19 12:03 37.2 12/26/19 12:00 71 23 149/66 (93) 94 Room Air 12/26/19 11:00 68 15 142/59 (86) 93 Room Air 12/26/19 10:00 68 15 124/54 (77) 93 Nasal Cannula 1.00 12/26/19 09:00 70 18 132/71 (91) 92 Nasal Cannula 1.00 12/26/19 08:00 Nasal Cannula 2.00 12/26/19 08:00 69 16 115/54 (74) 96 Nasal Cannula 1.00 12/26/19 07:00 77 18 146/63 (90) 97 Nasal Cannula 1.00 12/26/19 07:00 75 12/26/19 06:00 79 18 124/54 (77) 97 Nasal Cannula 1.00 12/26/19 05:55 Nasal Cannula 1.00 12/26/19 05:00 78 15 124/53 (76) 97 Nasal Cannula 2.00 I & O 12/27/19 07:00 Intake Total 725 ml Output Total 1000 ml Balance -275 ml Height & Weight Height: 5'5.00" Weight: 170lbs. 0.0oz. [id number]; 29.75 BMI Method:Estimated General Appearance: Mild Distress, Other (follows commmands however still lethargic) HEENT: Pharynx Normal, Moist Mucous Membranes Neck: Supple Respiratory: Lungs Clear Cardiovascular: No Regular Rate, Rhythm; Tachycardia (At 130) Capillary Refill: Less Than 3 Seconds Gastrointestinal: soft; No distended, No guarding, No rebound, No tenderness Extremity: Normal Capillary Refill Neurologic/Psychiatric: Disoriented, Other (Sleeping/postictal) Skin: Normal Color Lymphatic: No Adenopathy Results Lab Laboratory Tests 12/25/19 13:07 12/26/19 03:50 12/27/19 03:25 Assessment/Plan Assessment/Plan Acute seizures upon admission -Pt had 4mg of IV Ativan 12/25/19 -Keppra- continue -No seizures since admission Lethargy - secondary to 4mg of Ativan given yesterday -CT scan done yesterday is negative -MRI was done 12/06/2019-- is negative Anemia -Monitor Electrolyte disturbance -Replace mg, phos, and K+ Metabolic encephalopathy ADRIANO DENT DO Dec 27, 2019 04:56
[2019-12-27] MEDS: MAGNESIUM 1 GM/100 ML IVPB 100 ML IV SCH ×4 (05:00→10:22)
[2019-12-27] MEDS: POTASSIUM CL 10MEQ/50ML IVPB 50 ML IV SCH ×3 (05:00→08:24)
[2019-12-27] MEDS ORDERED: POTASSIUM PHOSPHATE INJ 30 MM in NS (IVPB) 250 ML IV ONE (05:00)
[2019-12-27] MEDS: KCL 20 MEQ TAB (K-DUR) PO SCH (05:29)
[2019-12-27] MEDS: D5 LR IV SOLUTION 1,000 ML IV SCH ×2 (06:08→15:00)
--- NOTE | 2019-12-27 08:01 | Diagnostic Imaging Report ---
EXAM: CHEST 1 VIEW, AP/PA ONLY INDICATION: Dyspnea. COMPARISON: 12/26/2019. FINDINGS: Normal heart size and central pulmonary vascularity. No focal pulmonary opacity, pleural effusion or pneumothorax. Calcified aorta. Subtle airspace opacity in the right midlung has progressed since yesterday. IMPRESSION: Subtle airspace opacity in the right midlung is progressed since yesterday. Dictated by: Dictated on workstation # [id number]
--- NOTE | 2019-12-27 09:09 | Speech Therapy Progress Note ---
Therapy Progress Note ST attempted to see patient for therapy this morning but was unable due to patients reduced level of alertness. ST will follow up this afternoon. TRACI BUI Dec 27, 2019 09:09
[2019-12-27] MEDS: LEVETIRACETAM INJECTION 1,000 MG in NS (IVPB) 100 ML IV SCH ×2 (09:39→20:52)
--- NOTE | 2019-12-27 14:16 | Progress Note ---
Subjective Date Seen by a Provider: Dec 27, 2019 Time Seen by a Provider: 13:05 Subjective/Events-last exam patient is now resting comfortably in bed on cardiac stepdown. I spoke with 3 daughters who are at bedside and state Beatriz is still resting predominantly. She has not taken anything orally today. Yesterday she did take about 24 cc f fluid. She will open her eyes and respond to her name but her verbal communication is very limited. Objective Exam Vital Signs Date Time Temp Pulse Resp B/P (MAP) Pulse Ox O2 Delivery O2 Flow Rate FiO2 12/27/19 12:00 36.8 76 20 170/80 (110) 98 Room Air 12/27/19 08:00 Room Air 93 12/27/19 08:00 36.7 70 25 152/60 (90) 93 Room Air 12/27/19 06:56 79 12/27/19 06:00 68 36 139/65 (89) Room Air 12/27/19 05:00 90 30 129/85 (100) Room Air 12/27/19 04:00 36.5 12/27/19 04:00 86 16 157/66 (96) Room Air 12/27/19 03:00 101 21 167/76 (106) Room Air 12/27/19 02:00 103 26 149/56 (87) Room Air 12/27/19 01:00 108 21 155/56 (89) Room Air 12/27/19 01:00 106 12/27/19 00:00 114 18 153/66 (95) Room Air 12/26/19 23:58 38.0 95 Room Air 12/26/19 23:00 104 17 184/72 (109) Room Air 12/26/19 22:00 99 20 172/78 (109) Room Air 12/26/19 21:00 96 19 147/78 (101) Room Air 12/26/19 20:00 Room Air 94 12/26/19 20:00 102 24 137/87 (104) Room Air 12/26/19 20:00 37.6 94 Room Air 12/26/19 19:00 82 18 139/78 (98) 91 Room Air 12/26/19 19:00 82 12/26/19 18:00 73 172/78 (109) 95 Room Air 12/26/19 17:00 79 19 177/79 (111) 98 Room Air 12/26/19 16:00 81 11 161/84 (109) 97 Room Air 12/26/19 15:09 37.7 12/26/19 15:00 79 16 173/77 (109) 93 Room Air I & O 12/27/19 07:00 Intake Total 725 ml Output Total 1800 ml Balance -1075 ml Capillary Refill : Less Than 3 Seconds General Appearance: No Apparent Distress Neck: Supple Respiratory: Lungs Clear Cardiovascular: Regular Rate, Rhythm (the rate is controlled) Gastrointestinal: soft Neurologic/Psychiatric: Alert, Other (movement of upper extremities and right leg noted) Results Lab Laboratory Tests 12/26/19 17:10: Glucometer 119H 12/27/19 03:25: White Blood Count 8.2, Red Blood Count 3.56L, Hemoglobin 11.4L, Hematocrit 36, Mean Corpuscular Volume 101H, Mean Corpuscular Hemoglobin 32, Mean Corpuscular Hemoglobin Concent 32, Red Cell Distribution Width 16.2H, Platelet Count 124L, Mean Platelet Volume 11.5H, Neutrophils (%) (Auto) 80H, Lymphocytes (%) (Auto) 10L, Monocytes (%) (Auto) 9, Eosinophils (%) (Auto) 1, Basophils (%) (Auto) 0, Neutrophils # (Auto) 6.5, Lymphocytes # (Auto) 0.9L, Monocytes # (Auto) 0.7, Eosinophils # (Auto) 0.1, Basophils # (Auto) 0.0, Sodium Level 140, Potassium Level 3.0L, Chloride Level 108H, Carbon Dioxide Level 21, Anion Gap 11, Blood Urea Nitrogen 11, Creatinine 0.91, Estimat Glomerular Filtration Rate 59, BUN/Creatinine Ratio 12, Glucose Level 122H, Calcium Level 10.7H, Phosphorus Level 1.7L, Magnesium Level 1.5L 12/27/19 11:45: Glucometer 98 Microbiology 12/25/19 Blood Culture - Preliminary, Resulted No growth 12/25/19 Influenza Types A,B Antigen (JUDE) - Final, Complete Assessment/Plan Assessment/Plan Assess & Plan/Chief Complaint 1. Unresponsiveness -Continue to monitor on fourth medical. 12/26 -Continuing to monitor. 12/27 -lightly more responsive today 2. Seizure disorder most likely accounting for number 1 -Keppra 1000 mg has been ordered and received first IV in the emergency department. She will continue with 1000 mg IV every 12 hours. -She has also available Ativan 2 mg IV if has seizure. -Will plan on getting an EEG. Will check into closest facility. -Recheck labs in the morning CBC as well as chemistry 14 12/26 -The Keppra appears to be helpful as she is now with no seizure-like activity. -Patient currently in ICU and Dr. Butts consulted -no further seizures She continues to receive IV Keppra since she is not taking anything orally. 3. Tachycardia on admission 12/26 -She is in normal sinus rhythm 4. Dehydration 12/26 -IV fluids began this morning at 100 mL per hour 12/27 -fluids continue to run at 125 cc per hour Clinical Quality Measures Admission Status Admission Dx 1. Unresponsiveness -Continue to monitor on fourth medical. 2. Seizure disorder most likely accounting for number 1 -Keppra 1000 mg has been ordered and received first IV in the emergency department. She will continue with 1000 mg IV every 12 hours. -She has also available Ativan 2 mg IV if has seizure. -Will plan on getting an EEG. Will check into closest facility. -Recheck labs in the morning CBC as well as chemistry 14 3. Tachycardiasinus -We'll continue to monitor. DVT/VTE Risk/Contraindication: Risk Factor Score Per Nursin RFS Level Per Nursing on Admit: 4+=Very High AWA NIXON MD Dec 27, 2019 14:16
--- NOTE | 2019-12-27 14:59 | Speech Therapy Progress Note ---
Therapy Progress Note Per nursing report, patient was noted to be choking on her spit. Patient will be downgraded to nectar thickened liquids to increase safe and effective oral intake. TRACI BUI Dec 27, 2019 14:59
[2019-12-27] MEDS ORDERED: SCOPOLAMINE 1.5 MG (TRANSDERM-SCOP) PATCH TD PRN (15:45)
[2019-12-27] MEDS: LORazepam INJ 2 MG/ML (ATIVAN) VIAL IV PRN ×3 (15:59→16:20)
--- NOTE | 2019-12-27 18:30 | NUR ---
RECEIVED REPORT FROM ICU NURSE, PATIENT LETHARGIC, SULLIVAN PATENT WITH CLEAR YELLOW URINE, ARMS EDEMATOUS, IV SITE LEAKING, BED RAILS PADDED, SUCTION AT BEDSIDE, NO SEIZURES AT THIS TIME, FAMILY AT BEDSIDE.
--- NOTE | 2019-12-27 19:40 | NUR ---
IV STARTED WITH #22 TIMES ONE STICK BY ANNA MARIE VOGT
[2019-12-28] VITALS (7 sets, daily range): BP systolic 136–180; BP diastolic 66–78
[2019-12-28] MEDS: D5 LR IV SOLUTION 1,000 ML IV SCH ×2 (00:28→09:29)
[2019-12-28] MEDS: inSUlin ASPART (NovoLOG) 1 UNIT/0.01 ML (CHARGE PER UNIT) SC SCH ×4 (00:54→18:25)
[2019-12-28] MEDS: hydrALAZINE (APESOLINE) 20 MG/ML VIAL IV PRN (05:04)
--- NOTE | 2019-12-28 05:05 | NUR ---
PT JOAO 180/76. PRN HYDRALAZINE GIVEN
[2019-12-28] MEDS: KCL 20 MEQ TAB (K-DUR) PO SCH (06:03)
[2019-12-28 07:29] LABS: BASOPHILS % (AUTO) 0 % (0-10); EOSINOPHILS # (AUTO) 0.1 10^3/uL (0.0-0.3); EOSINOPHILS % (AUTO) 1 % (0-10); HEMATOCRIT 36 % (35-52); HEMOGLOBIN 11.2 G/DL (11.5-16.0); LYMPHOCYTES # (AUTO) 0.6 X 10^3 (1.0-4.0); LYMPHOCYTES % (AUTO) 5 % (12-44); MEAN CORPUSCULAR HEMOGLOBIN 32 PG (25-34); MEAN CORPUSCULAR HGB CONC 31 G/DL (32-36); MEAN CORPUSCULAR VOLUME 101 FL (80-99); MEAN PLATELET VOLUME 11.2 FL (7.4-10.4); MONOCYTES # (AUTO) 0.7 X 10^3 (0.0-1.0); MONOCYTES % (AUTO) 6 % (0-12); NEUTROPHILS # (AUTO) 9.9 X 10^3 (1.8-7.8); NEUTROPHILS % (AUTO) 88 % (42-75); PLATELET COUNT 130 10^3/uL (130-400); RED CELL DISTRIBUTION WIDTH 16.5 % (10.0-14.5); WHITE BLOOD COUNT 11.4 10^3/uL (4.3-11.0)
[2019-12-28 07:54] LABS: CALCIUM 10.4 MG/DL (8.5-10.1); CREATININE SERUM 0.94 MG/DL (0.60-1.30); MAGNESIUM 1.7 MG/DL (1.6-2.4); PHOSPHORUS 2.1 MG/DL (2.3-4.7); POTASSIUM 3.3 MMOL/L (3.6-5.0)
[2019-12-28 08:14] LABS: BAND NEUTROPHILS 1 %; LYMPHOCYTES % (MANUAL) 2 %; MONOCYTES % (MANUAL) 9 %; NEUTROPHILS % (MANUAL) 88 %; RBC MORPH NORMAL
--- NOTE | 2019-12-28 09:13 | Diagnostic Imaging Report ---
INDICATION: Dyspnea Upright portable chest shows normal heart size and vascularity. There is basilar atelectasis with no infiltrates or effusions seen. IMPRESSION: Bibasilar discoid atelectasis. There has been improved aeration of the right perihilar region since 12/27/2019. Dictated by: Dictated on workstation # [id number]
[2019-12-28] MEDS ORDERED: FUROSEMIDE 40 MG/4 ML INJ (LASIX) IVP ONE (09:15)
[2019-12-28] MEDS ORDERED: SCOPOLAMINE 1.5 MG (TRANSDERM-SCOP) PATCH TD SCH (09:15)
[2019-12-28] MEDS ORDERED: ACETAMINOPHEN 650 MG SUPP (TYLENOL) PR PRN (09:30)
--- NOTE | 2019-12-28 09:31 | Progress Note ---
Subjective Date Seen by a Provider: Dec 28, 2019 Time Seen by a Provider: 09:15 Subjective/Events-last exam Patient is currently not communicating. She predominantly has her eyes closed. She is lying to her left side. There is currently no audible respiratory gurgling from saliva. She was noted to have seizure yesterday that was eventually controlled with total of 4 mg Ativan. I spoke with family on conference call today and they have elected for no aggressive measures. They realize that mother is most likely passing and they would like to keep her com fortable. They have also expressed they would like to have autopsy performed and I have already checked into [facility]. Objective Exam Vital Signs Date Time Temp Pulse Resp B/P (MAP) Pulse Ox O2 Delivery O2 Flow Rate FiO2 12/28/19 06:03 155/70 (98) 12/28/19 04:50 36.7 91 28 180/78 (112) 92 Room Air 12/28/19 00:00 37.0 68 18 167/72 (103) 93 Room Air 12/27/19 20:00 Room Air 12/27/19 20:00 37.2 79 20 152/67 (95) 94 Room Air 12/27/19 18:30 Room Air 94 12/27/19 16:00 37.6 77 21 182/92 (122) 96 Room Air 12/27/19 12:00 36.8 76 20 170/80 (110) 98 Room Air I & O 12/28/19 07:00 Intake Total 1120 ml Output Total 1075 ml Balance 45 ml Capillary Refill : Less Than 3 Seconds General Appearance: No Apparent Distress (Does not respond to name) Respiratory: Lungs Clear Cardiovascular: Regular Rate, Rhythm Gastrointestinal: soft Extremity: Other (Edema of upper extremities) Neurologic/Psychiatric: No Alert, No Oriented x3 Skin: Normal Color, Cool Results Lab Laboratory Tests 12/27/19 11:45: Glucometer 98 12/27/19 19:17: Glucometer 112H 12/28/19 00:49: Glucometer 119H 12/28/19 05:01: Glucometer 116H 12/28/19 07:15: White Blood Count 11.4H, Red Blood Count 3.53L, Hemoglobin 11.2L, Hematocrit 36, Mean Corpuscular Volume 101H, Mean Corpuscular Hemoglobin 32, Mean Corpuscular Hemoglobin Concent 31L, Red Cell Distribution Width 16.5H, Platelet Count 130, Mean Platelet Volume 11.2H, Neutrophils (%) (Auto) 88H, Lymphocytes (%) (Auto) 5L, Monocytes (%) (Auto) 6, Eosinophils (%) (Auto) 1, Basophils (%) (Auto) 0, Neutrophils # (Auto) 9.9H, Lymphocytes # (Auto) 0.6L, Monocytes # (Auto) 0.7, Eosinophils # (Auto) 0.1, Basophils # (Auto) 0.0, Neutrophils % (Manual) 88, Lymphocytes % (Manual) 2, Monocytes % (Manual) 9, Band Neutrophils 1, Blood M orphology Comment NORMAL, Sodium Level 141, Potassium Level 3.3L, Chloride Level 113H, Carbon Dioxide Level 21, Anion Gap 7, Blood Urea Nitrogen 13, Creatinine 0.94, Estimat Glomerular Filtration Rate 56, BUN/Creatinine Ratio 14, Glucose Level 129H, Calcium Level 10.4H, Phosphorus Level 2.1L, Magnesium Level 1.7 Microbiology 12/25/19 MRSA Screen - Final, Complete MRSA not isolated 12/25/19 Blood Culture - Preliminary, Resulted No growth Assessment/Plan Assessment/Plan Assess & Plan/Chief Complaint 1. Unresponsiveness -Continue to monitor on fourth medical. 12/26 -Continuing to monitor. 12/27 -lightly more responsive today 12/28 -Patient is unresponsive this morning. -Family has expressed no aggressive measures. Family has expressed when mother passes they would like to have her sent for autopsy and [facility] and they have checked into this already. 2. Seizure disorder most likely accounting for number 1 -Keppra 1000 mg has been ordered and received first IV in the emergency department. She will continue with 1000 mg IV every 12 hours. -She has also available Ativan 2 mg IV if has seizure. -Will plan on getting an EEG. Will check into closest facility. -Recheck labs in the morning CBC as well as chemistry 14 12/26 -The Keppra appears to be helpful as she is now with no seizure-like activity. -Patient currently in ICU and Dr. Butts consulted -no further seizures She continues to receive IV Keppra since she is not taking anything orally. 12/28 -Seizure activity yesterday and this was controlled with 4 mg total of IV Ativan 3. Tachycardia on admission 12/26 -She is in normal sinus rhythm 4. Dehydration 12/26 -IV fluids began this morning at 100 mL per hour 12/27 -fluids continue to run at 125 cc per hour 12/28 -IV fluids will be held at this point and she will be given a dose of 20 mg Lasix IV. 5. Peripheral edema 12/28 -IV Lasix as mentioned Clinical Quality Measures Admission Status Admission Dx 1. Unresponsiveness -Continue to monitor on fourth medical. 2. Seizure disorder most likely accounting for number 1 -Keppra 1000 mg has been ordered and received first IV in the emergency department. She will continue with 1000 mg IV every 12 hours. -She has also available Ativan 2 mg IV if has seizure. -Will plan on getting an EEG. Will check into closest facility. -Recheck labs in the morning CBC as well as chemistry 14 3. Tachycardiasinus -We'll continue to monitor. DVT/VTE Risk/Contraindication: Risk Factor Score Per Nursin RFS Level Per Nursing on Admit: 4+=Very High AWA NIXON MD Dec 28, 2019 09:31
[2019-12-28] MEDS: LEVETIRACETAM INJECTION 1,000 MG in NS (IVPB) 100 ML IV SCH ×2 (09:54→20:13)
[2019-12-29] VITALS: BP 152/69
[2019-12-29 04:00] VITALS: BP 170/74
[2019-12-29] MEDS: inSUlin ASPART (NovoLOG) 1 UNIT/0.01 ML (CHARGE PER UNIT) SC SCH ×4 (06:11→18:15)
[2019-12-29] MEDS: KCL 20 MEQ TAB (K-DUR) PO SCH (06:11)
[2019-12-29 06:54] LABS: BASOPHILS % (AUTO) 0 % (0-10); EOSINOPHILS # (AUTO) 0.2 10^3/uL (0.0-0.3); EOSINOPHILS % (AUTO) 1 % (0-10); HEMATOCRIT 35 % (35-52); LYMPHOCYTES # (AUTO) 0.7 X 10^3 (1.0-4.0); LYMPHOCYTES % (AUTO) 6 % (12-44); MEAN CORPUSCULAR HEMOGLOBIN 31 PG (25-34); MEAN CORPUSCULAR HGB CONC 31 G/DL (32-36); MEAN CORPUSCULAR VOLUME 101 FL (80-99); MEAN PLATELET VOLUME 11.7 FL (7.4-10.4); MONOCYTES # (AUTO) 0.9 X 10^3 (0.0-1.0); MONOCYTES % (AUTO) 7 % (0-12); NEUTROPHILS # (AUTO) 10.8 X 10^3 (1.8-7.8); NEUTROPHILS % (AUTO) 86 % (42-75); PLATELET COUNT 103 10^3/uL (130-400); RED CELL DISTRIBUTION WIDTH 16.5 % (10.0-14.5); WHITE BLOOD COUNT 12.6 10^3/uL (4.3-11.0)
[2019-12-29 07:13] LABS: CALCIUM 10.8 MG/DL (8.5-10.1); CREATININE SERUM 1.16 MG/DL (0.60-1.30); MAGNESIUM 1.6 MG/DL (1.6-2.4); PHOSPHORUS 2.5 MG/DL (2.3-4.7); POTASSIUM 3.5 MMOL/L (3.6-5.0)
--- NOTE | 2019-12-29 07:34 | Diagnostic Imaging Report ---
INDICATION: Dyspnea. Comparison made with prior examination 12/28/2019. FINDINGS: There is cardiomegaly. There is mild venous congestion. There are patchy bibasilar infiltrates. There is a small left pleural effusion. There is no pneumothorax. Mediastinum is unremarkable. IMPRESSION: Patchy bibasilar pulmonary infiltrates with a small left pleural effusion. Cardiomegaly and mild central pulmonary venous congestion. Dictated by: Dictated on workstation # [id number]
[2019-12-29] MEDS: hydrALAZINE (APESOLINE) 20 MG/ML VIAL IV PRN (07:54)
[2019-12-29 08:00] VITALS: BP 180/79
[2019-12-29] MEDS: LEVETIRACETAM INJECTION 1,000 MG in NS (IVPB) 100 ML IV SCH ×2 (08:13→20:51)
--- NOTE | 2019-12-29 08:23 | Progress Note ---
Subjective Date Seen by a Provider: Dec 29, 2019 Time Seen by a Provider: 08:30 Subjective/Events-last exam Today I spent time discussing with 2 daughters in the room Gama thomason ondition. She is currently without IV fluids as she did have edema fairly significantly yesterday with regards to extremities. She had received 1 dose of Lasix 20 mg IV yesterday. She does not appear as edematous today. She is still not communicating. Was stating her name she will occasionally move her head and partially open eyes. She does not follow commands with regards to squeezing hand or moving her feet. Daughters are comfortable with mother not have an IV fluids. Daughters in the room with her have questions whether she would be able to hold still for having an MRI of the head. She has quite a bit of secretions orally but these have improved since placement of scopolamine patch. Objective Exam Vital Signs Date Time Temp Pulse Resp B/P (MAP) Pulse Ox O2 Delivery O2 Flow Rate FiO2 12/29/19 04:00 37.8 101 22 170/74 (106) 91 Room Air 12/29/19 00:00 37.5 80 20 152/69 (96) 92 Room Air 12/28/19 20:00 Room Air 12/28/19 20:00 37.3 97 23 136/72 (93) 92 Room Air 12/28/19 16:00 37.5 103 20 167/72 (103) 90 Room Air 12/28/19 12:00 37.1 112 24 141/66 (91) 91 Room Air I & O 12/29/19 07:00 Intake Total 1110 ml Output Total 1175 ml Balance -65 ml Capillary Refill : Less Than 3 Seconds General Appearance: No Apparent Distress HEENT: Moist Mucous Membranes Neck: Supple Respiratory: Lungs Clear Cardiovascular: Regular Rate, Rhythm Gastrointestinal: soft Extremity: Swelling (Less compared to yesterday with regards to upper extremities) Neurologic/Psychiatric: No Alert, No Oriented x3 Skin: Normal Color Results Lab Laboratory Tests 12/28/19 11:54: Glucometer 110 12/28/19 18:23: Glucometer 113H 12/29/19 00:53: Glucometer 105 12/29/19 06:06: Glucometer 100 12/29/19 06:36: Sodium Level 143, Potassium Level 3.5L, Chloride Level 113H, Carbon Dioxide Level 19L, Anion Gap 11, Blood Urea Nitrogen 19H, Creatinine 1.16, Estimat Glomerular Filtration Rate 44, BUN/Creatinine Ratio 16, Glucose Level 98, Calci um Level 10.8H, Phosphorus Level 2.5, Magnesium Level 1.6 12/29/19 06:38: White Blood Count 12.6H, Red Blood Count 3.50L, Hemoglobin 11.0L, Hematocrit 35, Mean Corpuscular Volume 101H, Mean Corpuscular Hemoglobin 31, Mean Corpuscular Hemoglobin Concent 31L, Red Cell Distribution Width 16.5H, Platelet Count 103L, Mean Platelet Volume 11.7H, Neutrophils (%) (Auto) 86H, Lymphocytes (%) (Auto) 6L, Monocytes (%) (Auto) 7, Eosinophils (%) (Auto) 1, Basophils (%) (Auto) 0, Neutrophils # (Auto) 10.8H, Lymphocytes # (Auto) 0.7L, Monocytes # (Auto) 0.9, Eosinophils # (Auto) 0.2, Basophils # (Auto) 0.0 Microbiology 12/25/19 MRSA Screen - Final, Complete MRSA not isolated 12/25/19 Blood Culture - Preliminary, Resulted No growth Assessment/Plan Assessment/Plan Assess & Plan/Chief Complaint 1. Unresponsiveness -Continue to monitor on fourth medical. 12/26 -Continuing to monitor. 12/27 -lightly more responsive today 12/28 -Patient is unresponsive this morning. -Family has expressed no aggressive measures. Family has expressed when mother passes they would like to have her sent for autopsy and [facility] and they have checked into this already. 12/29 -Patient does not respond to commands. -Consideration to MRI and morning to check for any cerebral infarct. -We'll discuss with family in morning regarding hospice care 2. Seizure disorder most likely accounting for number 1 -Keppra 1000 mg has been ordered and received first IV in the emergency department. She will continue with 1000 mg IV every 12 hours. -She has also available Ativan 2 mg IV if has seizure. -Will plan on getting an EEG. Will check into closest facility. -Recheck labs in the morning CBC as well as chemistry 14 12/26 -The Keppra appears to be helpful as she is now with no seizure-like activity. -Patient currently in ICU and Dr. Butts consulted -no further seizures She continues to receive IV Keppra since she is not taking anything orally. 12/28 -Seizure activity yesterday and this was controlled with 4 mg total of IV Ativan 12/29 -No reported seizures over the past 24 hours 3. Tachycardia on admission 12/26 -She is in normal sinus rhythm 4. Dehydration 12/26 -IV fluids began this morning at 100 mL per hour 12/27 -fluids continue to run at 125 cc per hour 12/28 -IV fluids will be held at this point and she will be given a dose of 20 mg Lasix IV. 5. Peripheral edema 12/28 -IV Lasix as mentioned Clinical Quality Measures Admission Status Admission Dx 1. Unresponsiveness -Continue to monitor on fourth medical. 2. Seizure disorder most likely accounting for number 1 -Keppra 1000 mg has been ordered and received first IV in the emergency department. She will continue with 1000 mg IV every 12 hours. -She has also available Ativan 2 mg IV if has seizure. -Will plan on getting an EEG. Will check into closest facility. -Recheck labs in the morning CBC as well as chemistry 14 3. Tachycardiasinus -We'll continue to monitor. DVT/VTE Risk/Contraindication: Risk Factor Score Per Nursin RFS Level Per Nursing on Admit: 4+=Very High AWA NIXON MD Dec 29, 2019 08:23
[2019-12-29] MEDS ORDERED: PATCH REMOVAL TP SCH (09:00)
[2019-12-29 12:00] VITALS: BP 168/70
--- NOTE | 2019-12-29 15:30 | NUR ---
Contacted in request of a bible.
[2019-12-29 16:00] VITALS: BP 169/72
[2019-12-30] VITALS: BP 180/98
[2019-12-30] MEDS: KCL 20 MEQ TAB (K-DUR) PO SCH (06:00)
[2019-12-30] MEDS: inSUlin ASPART (NovoLOG) 1 UNIT/0.01 ML (CHARGE PER UNIT) SC SCH ×4 (06:00→17:26)
[2019-12-30 07:22] LABS: BASOPHILS % (AUTO) 0 % (0-10); EOSINOPHILS # (AUTO) 0.1 10^3/uL (0.0-0.3); EOSINOPHILS % (AUTO) 1 % (0-10); HEMATOCRIT 33 % (35-52); HEMOGLOBIN 10.2 G/DL (11.5-16.0); LYMPHOCYTES # (AUTO) 0.6 X 10^3 (1.0-4.0); LYMPHOCYTES % (AUTO) 6 % (12-44); MEAN CORPUSCULAR HEMOGLOBIN 31 PG (25-34); MEAN CORPUSCULAR HGB CONC 31 G/DL (32-36); MEAN CORPUSCULAR VOLUME 102 FL (80-99); MEAN PLATELET VOLUME 11.6 FL (7.4-10.4); MONOCYTES # (AUTO) 0.9 X 10^3 (0.0-1.0); MONOCYTES % (AUTO) 10 % (0-12); NEUTROPHILS # (AUTO) 8.1 X 10^3 (1.8-7.8); NEUTROPHILS % (AUTO) 84 % (42-75); PLATELET COUNT 125 10^3/uL (130-400); RED CELL DISTRIBUTION WIDTH 16.5 % (10.0-14.5); WHITE BLOOD COUNT 9.7 10^3/uL (4.3-11.0)
--- NOTE | 2019-12-30 07:31 | Progress Note ---
Subjective Date Seen by a Provider: Dec 30, 2019 Time Seen by a Provider: 07:20 Subjective/Events-last exam This morning patient is swallowing small amounts of water. According to daughter she was with limited communication last night. Apparently she had asked for water and answered a few questions appropriately. Her salivary secretions have slowed down some. Objective Exam Vital Signs Date Time Temp Pulse Resp B/P (MAP) Pulse Ox O2 Delivery O2 Flow Rate FiO2 12/30/19 00:00 36.7 114 20 180/98 (125) 94 Room Air 12/29/19 20:00 Room Air 12/29/19 16:00 36.6 110 28 169/72 (104) 90 Room Air 12/29/19 12:00 36.9 111 22 168/70 (102) 90 Room Air 12/29/19 08:00 37.2 114 22 180/79 (112) 90 Room Air 12/29/19 08:00 90 Room Air I & O 12/30/19 07:00 Intake Total 0 ml Output Total 1150 ml Balance -1150 ml Capillary Refill : NONE General Appearance: No Apparent Distress Neck: Supple Respiratory: Lungs Clear Cardiovascular: Regular Rate, Rhythm Gastrointestinal: soft Neurologic/Psychiatric: Other (Patient sleeping currently) Skin: Normal Color Results Lab Laboratory Tests 12/29/19 12:05: Glucometer 115H 12/29/19 17:58: Glucometer 106 12/30/19 00:57: Glucometer 96 12/30/19 05:32: Glucometer 89 12/30/19 07:05: White Blood Count 9.7, Red Blood Count 3.26L, Hemoglobin 10.2L, Hematocrit 33L, Mean Corpuscular Volume 102H, Mean Corpuscular Hemoglobin 31, Mean Corpuscular Hemoglobin Concent 31L, Red Cell Distribution Width 16.5H, Platelet Count 125L, Mean Platelet Volume 11.6H, Neutrophils (%) (Auto) 84H, Lymphocytes (%) (Auto) 6L, Monocytes (%) (Auto) 10, Eosinophils (%) (Auto) 1, Basophils (%) (Auto) 0, Neutrophils # (Auto) 8.1H, Lymphocytes # (Auto) 0.6L, Monocytes # (Auto) 0.9, Eosinophils # (Auto) 0.1, Basophils # (Auto) 0.0 Microbiology 12/25/19 MRSA Screen - Final, Complete MRSA not isolated 12/25/19 Blood Culture - Preliminary, Resulted No growth Assessment/Plan Assessment/Plan Assess & Plan/Chief Complaint 1. Unresponsiveness -Continue to monitor on fourth medical. 12/26 -Continuing to monitor. 12/27 -lightly more responsive today 12/28 -Patient is unresponsive this morning. -Family has expressed no aggressive measures. Family has expressed when mother passes they would like to have her sent for autopsy and [facility] and they have checked into this already. 12/29 -Patient does not respond to commands. -Consideration to MRI and morning to check for any cerebral infarct. -We'll discuss with family in morning regarding hospice care 12/30 -Her level of responsiveness has slightly improved. Family would like to hold on hospice for now. -Check MRI of head 2. Seizure disorder most likely accounting for number 1 -Keppra 1000 mg has been ordered and received first IV in the emergency department. She will continue with 1000 mg IV every 12 hours. -She has also available Ativan 2 mg IV if has seizure. -Will plan on getting an EEG. Will check into closest facility. -Recheck labs in the morning CBC as well as chemistry 14 12/26 -The Keppra appears to be helpful as she is now with no seizure-like activity. -Patient currently in ICU and Dr. Butts consulted -no further seizures She continues to receive IV Keppra since she is not taking anything orally. 12/28 -Seizure activity yesterday and this was controlled with 4 mg total of IV Ativan 12/29 -No reported seizures over the past 24 hours 3. Tachycardia on admission 12/26 -She is in normal sinus rhythm 4. Dehydration 12/26 -IV fluids began this morning at 100 mL per hour 12/27 -fluids continue to run at 125 cc per hour 12/28 -IV fluids will be held at this point and she will be given a dose of 20 mg Lasix IV. 12/30 -Check modified swallow study. We'll also begin sips of water. -We'll begin IV fluids at 80 mL per hour 5. Peripheral edema 12/28 -IV Lasix as mentioned Clinical Quality Measures Admission Status Admission Dx 1. Unresponsiveness -Continue to monitor on fourth medical. 2. Seizure disorder most likely accounting for number 1 -Keppra 1000 mg has been ordered and received first IV in the emergency department. She will continue with 1000 mg IV every 12 hours. -She has also available Ativan 2 mg IV if has seizure. -Will plan on getting an EEG. Will check into closest facility. -Recheck labs in the morning CBC as well as chemistry 14 3. Tachycardiasinus -We'll continue to monitor. DVT/VTE Risk/Contraindication: Risk Factor Score Per Nursin RFS Level Per Nursing on Admit: 4+=Very High AWA NIXON MD Dec 30, 2019 07:31
[2019-12-30 07:53] LABS: CALCIUM 10.9 MG/DL (8.5-10.1); CREATININE SERUM 1.06 MG/DL (0.60-1.30); MAGNESIUM 1.6 MG/DL (1.6-2.4); PHOSPHORUS 2.3 MG/DL (2.3-4.7); POTASSIUM 3.3 MMOL/L (3.6-5.0)
[2019-12-30 08:00] VITALS: BP 144/64
[2019-12-30] MEDS: D5 1/2 NS W/KCL 20 MEQ/L 1,000 ML IV SCH ×2 (10:02→21:14)
[2019-12-30] MEDS: LEVETIRACETAM INJECTION 1,000 MG in NS (IVPB) 100 ML IV SCH ×2 (10:02→21:14)
[2019-12-30] MEDS ORDERED: LORazepam INJ 2 MG/ML (ATIVAN) VIAL IVP ONE (11:30)
--- NOTE | 2019-12-30 11:50 | NUR ---
PALLIATIVE CARE RN in to see patient. Have worked with this family in the past and after reading about this hospital course thought I should show support. Patient is being taken to get her MRI at this time so did not assess her. Family updated this RN on happenings over the weekend...currently she is improved. No official consult no placed yet will see what MRI says and then wait for direction from / Tima.
--- NOTE | 2019-12-30 12:23 | Diagnostic Imaging Report ---
PROCEDURE: MR imaging of the brain without contrast. TECHNIQUE: Multiplanar, multisequence MR imaging of the brain was performed without contrast. INDICATION: Stroke. Altered mental status. COMPARISON: CT head without contrast 12/25/2019. MRI brain without contrast 12/06/2019. FINDINGS: Advanced generalized cerebral and cerebellar parenchymal volume loss. Advanced confluent T2 hyperintensities in the supratentorial white matter compatible with leukoaraiosis. No restricted water diffusion or hemosiderin deposition. Normal morphology including the major midline structures, sella, posterior fossa and cerebellar pontine angle. No hydrocephalus or extra-axial fluid collections. Normal intracranial flow voids. The orbits are unremarkable. The paranasal sinuses and mastoids are clear. Normal bone marrow signal. IMPRESSION: 1. No acute intracranial MRI findings. 2. 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 Dictated by: Dictated on workstation # [id number]
--- NOTE | 2019-12-30 12:57 | Diagnostic Imaging Report ---
INDICATION: Infiltrates. COMPARISON: 12/29/2019. FINDINGS: There have been improvements in the bilateral pulmonary density and the residual infiltrate, greatest in the left lung base but decreased. The heart size is within normal limits and stable. No pneumothorax. IMPRESSION: Improvements in bilateral infiltrates with residual opacity greatest at the left lung base. No adverse interval development. Dictated by: Dictated on workstation # [id number]
[2019-12-30 16:45] VITALS: BP 198/72
[2019-12-31] VITALS: BP 184/79
[2019-12-31] MEDS: inSUlin ASPART (NovoLOG) 1 UNIT/0.01 ML (CHARGE PER UNIT) SC SCH ×4 (00:08→18:08)
[2019-12-31] MEDS: hydrALAZINE (APESOLINE) 20 MG/ML VIAL IV PRN (00:31)
[2019-12-31 03:50] VITALS: BP 191/81
[2019-12-31 05:07] LABS: BASOPHILS % (AUTO) 0 % (0-10); EOSINOPHILS # (AUTO) 0.1 10^3/uL (0.0-0.3); EOSINOPHILS % (AUTO) 1 % (0-10); HEMATOCRIT 33 % (35-52); HEMOGLOBIN 10.2 G/DL (11.5-16.0); LYMPHOCYTES # (AUTO) 0.6 X 10^3 (1.0-4.0); LYMPHOCYTES % (AUTO) 6 % (12-44); MEAN CORPUSCULAR HEMOGLOBIN 32 PG (25-34); MEAN CORPUSCULAR HGB CONC 31 G/DL (32-36); MEAN CORPUSCULAR VOLUME 103 FL (80-99); MEAN PLATELET VOLUME 11.4 FL (7.4-10.4); MONOCYTES # (AUTO) 0.8 X 10^3 (0.0-1.0); MONOCYTES % (AUTO) 8 % (0-12); NEUTROPHILS # (AUTO) 8.5 X 10^3 (1.8-7.8); NEUTROPHILS % (AUTO) 84 % (42-75); PLATELET COUNT 127 10^3/uL (130-400)
[2019-12-31 05:25] LABS: BUN/CREATININE RATIO 30; CALCIUM 10.6 MG/DL (8.5-10.1); CARBON DIOXIDE 21 MMOL/L (21-32); CHLORIDE 116 MMOL/L (98-107); CREATININE SERUM 0.82 MG/DL (0.60-1.30); GFR ESTIMATED > 60; GLUCOSE 122 MG/DL (70-105); MAGNESIUM 1.5 MG/DL (1.6-2.4); PHOSPHORUS 1.3 MG/DL (2.3-4.7); POTASSIUM 3.1 MMOL/L (3.6-5.0); SODIUM 146 MMOL/L (135-145)
[2019-12-31] MEDS ORDERED: POTASSIUM CL 10MEQ/50ML IVPB 200 ML IV ONE (05:53)
[2019-12-31] MEDS: KCL 20 MEQ TAB (K-DUR) PO SCH (05:59)
[2019-12-31] MEDS: POTASSIUM CL 10MEQ/50ML IVPB 50 ML IV SCH ×4 (05:59→10:56)
--- NOTE | 2019-12-31 07:13 | Progress Note ---
Subjective Date Seen by a Provider: Dec 31, 2019 Time Seen by a Provider: 07:20 Subjective/Events-last exam Patient was setting up in bed this morning. She was alert and attempting communicate but words were somewhat dysarthric. This morning she is going to have swallow study to determine if she is going to be able to drink fluids Objective Exam Vital Signs Date Time Temp Pulse Resp B/P (MAP) Pulse Ox O2 Delivery O2 Flow Rate FiO2 12/31/19 03:50 37.6 78 191/81 (117) 12/31/19 00:00 37.6 76 21 184/79 (114) 95 Room Air 12/30/19 19:50 Room Air 12/30/19 16:45 37.4 73 32 198/72 (114) 93 Room Air 12/30/19 08:00 36.9 85 18 144/64 (90) 93 Room Air 12/30/19 08:00 Room Air I & O 12/31/19 07:00 Intake Total 1110 ml Output Total 1375 ml Balance -265 ml Capillary Refill : Less Than 3 Seconds General Appearance: No Apparent Distress Neck: Non Tender Respiratory: Lungs Clear Cardiovascular: Regular Rate, Rhythm Gastrointestinal: soft Extremity: Normal Capillary Refill Neurologic/Psychiatric: Alert Results Lab Laboratory Tests 12/30/19 12:20: Glucometer 103 12/30/19 16:43: Glucometer 130H 12/31/19 00:05: Glucometer 135H 12/31/19 05:00: White Blood Count 10.0, Red Blood Count 3.20L, Hemoglobin 10.2L, Hematocrit 33L, Mean Corpuscular Volume 103H, Mean Corpuscular Hemoglobin 32, Mean Corpuscular Hemoglobin Concent 31L, Red Cell Distribution Width 16.0H, Platelet Count 127L, Mean Platelet Volume 11.4H, Neutrophils (%) (Auto) 84H, Lymphocytes (%) (Auto) 6L, Monocytes (%) (Auto) 8, Eosinophils (%) (Auto) 1, Basophils (%) (Auto) 0, Neutrophils # (Auto) 8.5H, Lymphocytes # (Auto) 0.6L, Monocytes # (Auto) 0.8, Eosinophils # (Auto) 0.1, Basophils # (Auto) 0.0, Sodium Level 146H, Potassium Level 3.1L, Chloride Level 116H, Carbon Dioxide Level 21, Anion Gap 9, Blood Urea Nitrogen 25H, Creatinine 0.82, Estimat Glomerular Filtration Rate > 60, BUN/Creatinine Ratio 30, Glucose Level 122H, Calcium Level 10.6H, Phosphorus Level 1.3L, Magnesium Level 1.5L 12/31/19 05:28: Glucometer 125H Microbiology 12/25/19 MRSA Screen - Final, Complete MRSA not isolated 12/25/19 Blood Culture - Preliminary, Resulted No growth Assessment/Plan Assessment/Plan Assess & Plan/Chief Complaint 1. Unresponsiveness -Continue to monitor on fourth medical. 12/26 -Continuing to monitor. 12/27 -lightly more responsive today 12/28 -Patient is unresponsive this morning. -Family has expressed no aggressive measures. Family has expressed when mother passes they would like to have her sent for autopsy and [facility] and they have checked into this already. 12/29 -Patient does not respond to commands. -Consideration to MRI and morning to check for any cerebral infarct. -We'll discuss with family in morning regarding hospice care 12/30 -Her level of responsiveness has slightly improved. Family would like to hold on hospice for now. 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 Seizure disorder most likely accounting for number 1 -Keppra 1000 mg has been ordered and received first IV in the emergency department. She will continue with 1000 mg IV every 12 hours. -She has also available Ativan 2 mg IV if has seizure. -Will plan on getting an EEG. Will check into closest facility. -Recheck labs in the morning CBC as well as chemistry 14 12/26 -The Keppra appears to be helpful as she is now with no seizure-like activity. -Patient currently in ICU and Dr. Butts consulted -no further seizures She continues to receive IV Keppra since she is not taking anything orally. 12/28 -Seizure activity yesterday and this was controlled with 4 mg total of IV Ativan 12/29 -No reported seizures over the past 24 hours 3. Tachycardia on admission 12/26 -She is in normal sinus rhythm 4. Dehydration 12/26 -IV fluids began this morning at 100 mL per hour 12/27 -fluids continue to run at 125 cc per hour 12/28 -IV fluids will be held at this point and she will be given a dose of 20 mg Lasix IV. 12/30 -Check modified swallow study. We'll also begin sips of water. -We'll begin IV fluids at 80 mL per hour 12/31 -Continue with IV fluids at 80 mL per hour. Pending the swallow study she may be L to try to sip more fluids. Her creatinine is stable. 5. Peripheral edema 12/28 -IV Lasix as mentioned Clinical Quality Measures Admission Status Admission Dx 1. Unresponsiveness -Continue to monitor on fourth medical. 2. Seizure disorder most likely accounting for number 1 -Keppra 1000 mg has been ordered and received first IV in the emergency department. She will continue with 1000 mg IV every 12 hours. -She has also available Ativan 2 mg IV if has seizure. -Will plan on getting an EEG. Will check into closest facility. -Recheck labs in the morning CBC as well as chemistry 14 3. Tachycardiasinus -We'll continue to monitor. DVT/VTE Risk/Contraindication: Risk Factor Score Per Nursin RFS Level Per Nursing on Admit: 4+=Very High AWA NIXON MD Dec 31, 2019 07:13
[2019-12-31 08:00] VITALS: BP 149/68
--- NOTE | 2019-12-31 08:41 | Diagnostic Imaging Report ---
INDICATION: Dyspnea. Compared 12/30/2019 FINDINGS: The lungs are clear. No infiltrate, effusion or pneumothorax. IMPRESSION: No acute appearing abnormality. Dictated by: Dictated on workstation # [id number]
--- NOTE | 2019-12-31 09:23 | Speech Therapy Progress Note ---
Therapy Progress Note ST attempted to complete Modified Barium Study. Patient exhibited decreased alertness and was unable to safely complete. Patient will be rescheduled for an MBS later in the week as her level of alertness is expected to be improved. TRACI BUI Dec 31, 2019 09:23
[2019-12-31] MEDS: SCOPOLAMINE 1.5 MG (TRANSDERM-SCOP) PATCH TD SCH (09:32)
[2019-12-31] MEDS: PATCH REMOVAL TP SCH (09:32)
[2019-12-31] MEDS: LEVETIRACETAM INJECTION 1,000 MG in NS (IVPB) 100 ML IV SCH ×2 (09:48→20:15)
--- NOTE | 2019-12-31 09:55 | Diagnostic Imaging Report ---
INDICATION: Dysphagia. TECHNIQUE: The procedure was performed in conjunction with a member of the Department of Speech Pathology. The exam was very limited due to the patient's alertness level. Only thin barium was administered. FINDINGS: Approximately 2 teaspoons of thin barium were administered. There was excessive tongue pumping and essentially no initiation of swallow despite multiple attempts; therefore, the examination was terminated. IMPRESSION: Markedly limited exam due to the patient's alertness level with markedly abnormal initiation of the swallow. Please correlate with the formal Speech Pathology report. Dictated by: Dictated on workstation # [id number]
[2019-12-31] MEDS: D5 1/2 NS W/KCL 20 MEQ/L 1,000 ML IV SCH ×2 (13:35→22:23)
[2019-12-31 15:26] VITALS: BP 163/82
[2019-12-31 23:32] VITALS: BP 151/70
[2020-01-01] MEDS: inSUlin ASPART (NovoLOG) 1 UNIT/0.01 ML (CHARGE PER UNIT) SC SCH ×5 (00:05→20:29)
[2020-01-01] MEDS: D5 1/2 NS W/KCL 20 MEQ/L 1,000 ML IV SCH ×2 (01:48→19:32)
[2020-01-01 05:38] LABS: BASOPHILS % (AUTO) 0 % (0-10); EOSINOPHILS # (AUTO) 0.2 10^3/uL (0.0-0.3); EOSINOPHILS % (AUTO) 3 % (0-10); HEMATOCRIT 31 % (35-52); HEMOGLOBIN 9.5 G/DL (11.5-16.0); LYMPHOCYTES # (AUTO) 0.8 X 10^3 (1.0-4.0); LYMPHOCYTES % (AUTO) 11 % (12-44); MEAN CORPUSCULAR HEMOGLOBIN 32 PG (25-34); MEAN CORPUSCULAR HGB CONC 31 G/DL (32-36); MEAN CORPUSCULAR VOLUME 103 FL (80-99); MEAN PLATELET VOLUME 11.4 FL (7.4-10.4); MONOCYTES # (AUTO) 0.6 X 10^3 (0.0-1.0); MONOCYTES % (AUTO) 9 % (0-12); NEUTROPHILS # (AUTO) 5.1 X 10^3 (1.8-7.8); NEUTROPHILS % (AUTO) 76 % (42-75); PLATELET COUNT 140 10^3/uL (130-400); WHITE BLOOD COUNT 6.7 10^3/uL (4.3-11.0)
[2020-01-01 05:51] LABS: BUN/CREATININE RATIO 30; CALCIUM 10.8 MG/DL (8.5-10.1); CARBON DIOXIDE 23 MMOL/L (21-32); CHLORIDE 120 MMOL/L (98-107); CREATININE SERUM 0.82 MG/DL (0.60-1.30); GFR ESTIMATED > 60; GLUCOSE 112 MG/DL (70-105); POTASSIUM 3.8 MMOL/L (3.6-5.0); SODIUM 148 MMOL/L (135-145)
[2020-01-01] MEDS: POTASSIUM CL 10MEQ/50ML IVPB 50 ML IV SCH (06:06)
[2020-01-01] MEDS: KCL 20 MEQ TAB (K-DUR) PO SCH (06:07)
[2020-01-01] MEDS: MAGNESIUM 1 GM/100 ML IVPB 100 ML IV SCH ×3 (06:29→10:13)
--- NOTE | 2020-01-01 07:49 | Progress Note ---
Subjective Date Seen by a Provider: Jan 01, 2020 Time Seen by a Provider: 07:40 Subjective/Events-last exam patient more alert today and was with garbled speech but was making sense. She states she is thirsty. We will again attempt a bedside swallow study this morning. Objective Exam Vital Signs Date Time Temp Pulse Resp B/P (MAP) Pulse Ox O2 Delivery O2 Flow Rate FiO2 12/31/19 23:32 37.0 52 20 151/70 (97) 96 Room Air 12/31/19 20:15 Room Air 12/31/19 15:26 37.4 80 24 163/82 (109) 98 Room Air 12/31/19 08:00 36.0 50 16 149/68 (95) 93 Room Air 12/31/19 08:00 Room Air I & O 01/01/20 07:00 Intake Total 1310 ml Output Total 700 ml Balance 610 ml Capillary Refill : Less Than 3 Seconds General Appearance: No Apparent Distress Neck: Supple Cardiovascular: Regular Rate, Rhythm Gastrointestinal: soft Extremity: Normal Capillary Refill, Swelling (is minimal) Skin: Normal Color Results Lab Laboratory Tests 12/31/19 11:36: Glucometer 132H 12/31/19 17:27: Glucometer 133H 12/31/19 23:31: Glucometer 118H 01/01/20 05:25: White Blood Count 6.7, Red Blood Count 2.99L, Hemoglobin 9.5L, Hematocrit 31L, Mean Corpuscular Volume 103H, Mean Corpuscular Hemoglobin 32, Mean Corpuscular Hemoglobin Concent 31L, Red Cell Distribution Width 16.0H, Platelet Count 140, Mean Platelet Volume 11.4H, Neutrophils (%) (Auto) 76H, Lymphocytes (%) (Auto) 11L, Monocytes (%) (Auto) 9, Eosinophils (%) (Auto) 3, Basophils (%) (Auto) 0, Neutrophils # (Auto) 5.1, Lymphocytes # (Auto) 0.8L, Monocytes # (Auto) 0.6, Eosinophils # (Auto) 0.2, Basophils # (Auto) 0.0, Sodium Level 148H, Potassium Level 3.8, Chloride Level 120H, Carbon Dioxide Level 23, Anion Gap 5, Blood Urea Nitrogen 25H, Creatinine 0.82, Estimat Glomerular Filtration Rate > 60, BUN/Creatinine Ratio 30, Glucose Level 112H, Calcium Level 10.8H, Magnesium Level 1.4L Microbiology 12/25/19 MRSA Screen - Final, Complete MRSA not isolated 12/25/19 Blood Culture - Final, Complete No growth Assessment/Plan Assessment/Plan Assess & Plan/Chief Complaint 1. Unresponsiveness -Continue to monitor on fourth medical. 12/26 -Continuing to monitor. 12/27 -lightly more responsive today 12/28 -Patient is unresponsive this morning. -Family has expressed no aggressive measures. Family has expressed when mother passes they would like to have her sent for autopsy and [facility] and they have checked into this already. 12/29 -Patient does not respond to commands. -Consideration to MRI and morning to check for any cerebral infarct. -We'll discuss with family in morning regarding hospice care 12/30 -Her level of responsiveness has slightly improved. Family would like to hold on hospice for now. 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 Seizure disorder most likely accounting for number 1 -Keppra 1000 mg has been ordered and received first IV in the emergency department. She will continue with 1000 mg IV every 12 hours. -She has also available Ativan 2 mg IV if has seizure. -Will plan on getting an EEG. Will check into closest facility. -Recheck labs in the morning CBC as well as chemistry 14 12/26 -The Keppra appears to be helpful as she is now with no seizure-like activity. -Patient currently in ICU and Dr. Butts consulted -no further seizures She continues to receive IV Keppra since she is not taking anything orally. 12/28 -Seizure activity yesterday and this was controlled with 4 mg total of IV Ativan 12/29 -No reported seizures over the past 24 hours 3. Tachycardia on admission 12/26 -She is in normal sinus rhythm 4. Dehydration 12/26 -IV fluids began this morning at 100 mL per hour 12/27 -fluids continue to run at 125 cc per hour 12/28 -IV fluids will be held at this point and she will be given a dose of 20 mg Lasix IV. 12/30 -Check modified swallow study. We'll also begin sips of water. -We'll begin IV fluids at 80 mL per hour 12/31 -Continue with IV fluids at 80 mL per hour. Pending the swallow study she may be L to try to sip more fluids. Her creatinine is stable. 01/01 -bedside swallow study. If she passes will begin slowly introducing fluids 5. Peripheral edema 12/28 -IV Lasix as mentioned Clinical Quality Measures Admission Status Admission Dx 1. Unresponsiveness -Continue to monitor on fourth medical. 2. Seizure disorder most likely accounting for number 1 -Keppra 1000 mg has been ordered and received first IV in the emergency departm ent. She will continue with 1000 mg IV every 12 hours. -She has also available Ativan 2 mg IV if has seizure. -Will plan on getting an EEG. Will check into closest facility. -Recheck labs in the morning CBC as well as chemistry 14 3. Tachycardiasinus -We'll continue to monitor. DVT/VTE Risk/Contraindication: Risk Factor Score Per Nursin RFS Level Per Nursing on Admit: 4+=Very High AWA NIXON MD Jan 01, 2020 07:49
[2020-01-01] MEDS: LEVETIRACETAM INJECTION 1,000 MG in NS (IVPB) 100 ML IV SCH ×2 (09:18→20:29)
--- NOTE | 2020-01-01 10:02 | ST Dysphagia Evaluation ---
Speech Evaluation-General Medical Diagnosis Seizure Onset Date: Dec 26, 2019 Therapy Diagnosis Therapy Diagnosis: Oropharyngeal Dysphagia Precautions Precautions: Aspiration Referral Referring Physician: Dr. Alfred Reason for Referral: Evaluation/Treatment Medical History Pertinent Medical History: Arthritis, Dementia, HTN Reviewed History: Yes Speech PLF/Current-Dysphagia Prior Level of Function Patient lived alone and was able to eat what she wanted. She has had a decline in function over the past few months according to family. Cognitive Status Patient Orientation: Person, Confused, Place Patient has dementia and is alert to the present for short periods. Oral Motor Skills Dentition: Natural Ability to Follow Directions: Good Patient was NPO pending BDE Oral Expression Ability: Mild Impairment Voice Voice Phonatory-Based Quality: Weak Voice Pitch: Normal Voice Loudness: Mildly Soft/Quiet Face Facial Symmetry: Symmetrical Oral-Facial Assessment Oral-Facial Dentition: Normal Labial Seal Description: Normal Smile: Reduced ROM Puff Cheeks: Reduced Strength Lingual Protrusion: Normal Lingual ROM: Normal Lingual Strength: Normal Pharynx Velopharyngeal Move.: Normal Dysphagia Evaluation Consistencies Presented: Thin Liquid, Mechanical Soft, Pureed Oral phase within normal limits for all consistencies as presented.Oral phase within normal limits for thin and puree as presented. Pharyngeal phase within normal limits for thin and puree as presented. Dietary Recommendations: Mechanical Soft Liquid Recommendations: Thin Swallowing Precautions: Alternate Liquids/Solids, Double Swallow, Decreased Bolus 1/2 Tsp, Liquids from Straw, Liquids from Spoon, Oral Supervision Caregiver, Small Bites and Sips, Sitting Upright 90 Degrees, Sitting 90 Degrees 30 Post Intake Dysphagia Evaluation Summary Patient was referred for an MBS initially, however she was not alert enough due to medications to safely participate. Patient was much more alert and able to participate in the Bedside Dysphagia Evaluation today. She was given 1/2 tsp of thin liquid x2 without difficulty. She took several small sips via straw without difficulty. Patient was presented puree and mechanical soft without s/s of aspiration. Patient was noted to chew the mechanical soft (soft fruit) with spitting out part of the bite (1/2) tsp presentation. The patient is recommended for Dysphagia II with thin liquids. Patient will require assistance with all oral intake. Compensatory strategies were given to family to ensure safe oral intake. Patient's diet recs were provided to her nurse as well as written on the board in her room. ST will follow up after 24 hours for ongoing diet assessment. Barriers to Learning Patient has dementia, current medical status Speech Short Term Goals Short Term Goals Short Term Goals 1. Patient will tolerate least restrictive diet without s/s of aspiration at 90% accuracy. 2. Patient will utilize compensatory strategies as trained with 90% accuracy with minimal cues. Speech Career Developer Goals Snf Goals Patient will maintain adequate nutrition/hydration via safe and effective swallow function. Speech-Plan Patient/Family Goals Patient/Family Goals: Patient's discharge plan is unknown at this time. Treatment Plan Speech Therapy Treatment Plan: Continue Plan of Care Treatment Duration: Jan 03, 2020 Frequency: 3 times per week Estimated Hrs Per Day: .25 hour per day Rehab Potential: Good Barriers to Learning: Patient has dementia, current medical status Pt/Family Agrees to Plan: Yes Safety Risks/Education Teaching Recipient: Patient, Family Teaching Methods: Demonstration, Discussion Response to Teaching: Verbalize Understanding, Return Demonstration, Reinforcement Needed Education Topics Provided: Safety or oral intake strategies, diet level Time Speech Therapy Time In: 08:20 Speech Therapy Time Out: 08:35 Total Billed Time: 15 Billed Treatment Time 1FREDERICK B[address] ST Jan 01, 2020 10:02
--- NOTE | 2020-01-01 11:53 | Physical Therapy Evaluation ---
PT Evaluation-General Medical Diagnosis Admission Date Dec 25, 2019 at 15:51 Medical Diagnosis: Seizure Onset Date: Dec 25, 2019 Therapy Diagnosis Therapy Diagnosis: impaired mobility, strength, endurance, balance Height/Weight Height (Feet): 5 Height (Inches): 5.00 Weight (Pounds): 170 Weight (Ounces): 0.0 Precautions Precautions/Isolations: Fall Prevention, Standard Precautions Weight Bear Status Right Lower Extremity: Right Weight Bearing/Tolerated Left Lower Extremity: Left Weight Bearing/Tolerated Referral Physician: Tima Reason for Referral: Evaluation/Treatment Medical History Pertinent Medical History: Arthritis, Dementia, HTN Additional Medical History Past Tsvuucf-Aadygs-Nqprnm Hx Patient Social History Marrital Status: Alcohol Use: Denies Use Recreational Drug Use: No Smoking Status: Never a Smoker 2nd Hand Smoke Exposure: No Recent Foreign Travel: No Contact w/other who traveled: No Recent Hopitalizations: No ([facility] FOR SYNCOPAL EPISODE) Recent Infectious Disease Expo: No Immunizations Up To Date Tetanus Booster (TDap): Less than 5yrs Pediatric: No Date of Pneumonia Vaccine: Nov 20, 2018 Date of Influenza Vaccine: Oct 26, 2019 Seasonal Allergies Seasonal Allergies: No Surgeries Yes (henry total knee replacement; rectal fistula) Gallbladder, Hysterectomy, Orthopedic Respiratory No Currently Using CPAP: No Currently Using BIPAP: No Cardiovascular Yes (edema to lower ext, orthostatic hypotension) High Cholesterol, Hypertension Neurological No 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 System 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 Genitourinary No Gastrointestinal Yes C-Diff Musculoskeletal Yes (ARTHRITIS) Arthritis, Gout Endocrine History of Endocrine Disorders: No HEENT History of HEENT Disorders: Yes HEENT Disorders: Cataract Hearing Impairment: Hard of Hearing 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 Prior Prior Level of Function SCALE: Activities may be completed with or without assistive devices. 4-Ovjcemnggq-jiziugo completes the activity by him/herself with no assistance from a helper. 5-Set-up or Clean-up Assistance-helper sets up or cleans up; patient completes activity. [place] assists only prior to or following the activity. 4-Supervision or Touching Assistance-helper provides verbal cues and/or touching/steadying and/or contact guard assistance as patient completes activity. Assistance may be provided throughout the activity or intermittently. 3-Partial/Moderate Assistance-helper does LESS THAN HALF the effort. [place] lifts, holds or supports trunk or limbs, but provides less than half the effort. 2-Substantial/Maximal Assistance-helper does MORE THAN HALF the effort. [place] lifts or holds trunk or limbs and provides more than half the effort. 7-Bdxizfdvy-qpupow does ALL the effort. Patient does none of the effort to complete the activity. Or, the assistance of 2 or more helpers is required for the patient to complete the activity. If activity was not attempted, code reason: 7-Patient Refused. 9-Not Applicable-not attempted and the patient did not perform the activity before the current illness, exacerbation or injury. 10-Not Attempted due to Environmental Limitations-(lack of equipment, weather restraints, etc.). 88-Not Attempted due to Medical Conditions or Safety Concerns. Bed Mobility: 6 Transfers (B,C,W/C): 6 Gait: 5 Indoor Mobility (Ambulation): Needed Some Help PT Evaluation-Current Subjective Patient in bed pre tx, agrees to PT, unclear if she has any pain, patient's speech is very hard to understand. Pt/Family Goals "to get stronger" Objective Patient Orientation: Person, Confused, Mumbles Attachments: Woo Catheter, IV ROM/Strength ROM Lower Extremities WNL Strength Lower Extremities unable to test, patient would not follow directions Sensory Hearing: Functional Transfers Roll Left to Right (QC): 2 Lying to Sitting/Side of Bed(Q: 2 Sit to Stand (QC): 2 Chair/Vpi-bi-Zkdwj Xfer(QC): 2 Max assist to sit at the edge of the bed and for stand pivot transfer to the recliner. Patient is very anxious. Patient screamed "you are killing me" du ring the transfer but was in no distress as soon as she sat down. Patient had to stand a couple of more times to get a fresh pad under her and needed constant reassurance during that. While sitting on the side of the bed patient leans fairly heavily toward the left side and seems to have left neglect and left hemiparesis. Balance Sitting Static: Poor Sitting Dynamic: Poor Standing Static: Poor Treatment BLE seated exercises x15 (AP, LAQ), AAROM on the left side Assessment/Needs Patient has impaired mobility, strength, endurance, balance. Shows symptoms of a stroke. Rehab Potential: Guarded PT Supervisor Electronics Assembly Goals Residential Goals PT Supervisor Electronics Assembly Goals Time Frame: Jan 08, 2020 Roll Left & Right (QC): 3 Sit to Lying (QC): 3 Lying-Sitting on Side/Bed(QC): 3 Sit to Stand (QC): 3 Chair/Yav-dv-Bhawg Xfer(QC): 3 Walk 10 feet (QC): 3 PT Plan Problem List Problem List: Activity Tolerance, Functional Strength, Safety, Balance, Gait, Transfer, Bed Mobility Treatment/Plan Treatment Plan: Continue Plan of Care Treatment Plan: Bed Mobility, Education, Functional Activity Merry, Functional Strength, Gait, Safety, Therapeutic Exercise, Transfers Treatment Duration: Jan 08, 2020 Frequency: 6 times per week Estimated Hrs Per Day: .25 hour per day Patient and/or Family Agrees t: Yes Safety Risks/Education Patient Education: Transfer Techniques, Correct Positioning, Safety Issues Teaching Recipient: Patient Teaching Methods: Demonstration, Discussion Response to Teaching: Reinforcement Needed Discharge Recommendations Plan Patient will perform bed mobility and transfer training, balance and endurance training, functional strengthening, gait training, and education, to improve functional mobility and independence at home. Therapy Discharge Recommendati: Other, See Comments (NH) Time/GCodes Time In: 1104 Time Out: 1125 Total Billed Treatment Time: 21 Total Billed Treatment 1 visit ANDRES VIVEROS PT Jan 01, 2020 11:53
[2020-01-01 16:00] VITALS: BP_SYST 197; BP_SYST 200; BP_DIAS 83; BP_DIAS 93
[2020-01-01] MEDS: hydrALAZINE (APESOLINE) 20 MG/ML VIAL IV PRN (16:18)
--- NOTE | 2020-01-01 17:02 | NUR ---
Follow up visit with pt, daughter and son in law. The pt was alert. Offered compassionate presence and active listening.
[2020-01-01 20:15] VITALS: BP 167/74
[2020-01-02] VITALS: BP 176/66
[2020-01-02 04:59] LABS: BASOPHILS % (AUTO) 0 % (0-10); EOSINOPHILS # (AUTO) 0.2 10^3/uL (0.0-0.3); EOSINOPHILS % (AUTO) 3 % (0-10); HEMATOCRIT 31 % (35-52); HEMOGLOBIN 9.5 G/DL (11.5-16.0); LYMPHOCYTES # (AUTO) 0.7 X 10^3 (1.0-4.0); LYMPHOCYTES % (AUTO) 10 % (12-44); MEAN CORPUSCULAR HEMOGLOBIN 32 PG (25-34); MEAN CORPUSCULAR HGB CONC 31 G/DL (32-36); MEAN CORPUSCULAR VOLUME 102 FL (80-99); MEAN PLATELET VOLUME 11.2 FL (7.4-10.4); MONOCYTES # (AUTO) 0.6 X 10^3 (0.0-1.0); MONOCYTES % (AUTO) 9 % (0-12); NEUTROPHILS # (AUTO) 5.4 X 10^3 (1.8-7.8); NEUTROPHILS % (AUTO) 78 % (42-75); PLATELET COUNT 144 10^3/uL (130-400); RED CELL DISTRIBUTION WIDTH 15.4 % (10.0-14.5); WHITE BLOOD COUNT 6.9 10^3/uL (4.3-11.0)
[2020-01-02 05:25] LABS: BUN/CREATININE RATIO 25; CALCIUM 9.4 MG/DL (8.5-10.1); CARBON DIOXIDE 20 MMOL/L (21-32); CHLORIDE 113 MMOL/L (98-107); CREATININE SERUM 0.68 MG/DL (0.60-1.30); GFR ESTIMATED > 60; GLUCOSE 95 MG/DL (70-105); MAGNESIUM 1.5 MG/DL (1.6-2.4); POTASSIUM 3.1 MMOL/L (3.6-5.0); SODIUM 140 MMOL/L (135-145)
[2020-01-02] MEDS: inSUlin ASPART (NovoLOG) 1 UNIT/0.01 ML (CHARGE PER UNIT) SC SCH ×4 (05:45→20:43)
[2020-01-02] MEDS: KCL 20 MEQ TAB (K-DUR) PO SCH (05:46)
[2020-01-02] MEDS: MAGNESIUM 1 GM/100 ML IVPB 100 ML IV SCH ×3 (05:49→12:12)
[2020-01-02] MEDS: POTASSIUM CL 10MEQ/50ML IVPB 50 ML IV SCH ×4 (05:49→07:43)
[2020-01-02] MEDS: D5 1/2 NS W/KCL 20 MEQ/L 1,000 ML IV SCH (06:55)
--- NOTE | 2020-01-02 07:10 | Progress Note ---
Subjective Date Seen by a Provider: Jan 02, 2020 Time Seen by a Provider: 07:20 Subjective/Events-last exam Patient is beginning to communicate more. She is able to recognize faces and as her daughter state and she can answer questions appropriately Objective Exam Vital Signs Date Time Temp Pulse Resp B/P (MAP) Pulse Ox O2 Delivery O2 Flow Rate FiO2 01/02/20 00:00 37.0 72 22 176/66 (102) 94 Room Air 01/01/20 20:30 Room Air 01/01/20 20:15 167/74 (105) 01/01/20 16:00 200/93 (128) 01/01/20 16:00 36.9 58 22 197/83 (121) 96 Room Air 01/01/20 08:00 Room Air I & O 01/02/20 07:00 Intake Total 4480 ml Output Total 1125 ml Balance 3355 ml Capillary Refill : Less Than 3 Seconds General Appearance: No Apparent Distress Respiratory: Lungs Clear Cardiovascular: Regular Rate, Rhythm Gastrointestinal: soft Extremity: Normal Capillary Refill, No Calf Tenderness Neurologic/Psychiatric: Alert, Other (Somewhat garbled speech) Skin: Normal Color Results Lab Laboratory Tests 01/01/20 12:04: Glucometer 145H 01/01/20 17:45: Glucometer 96 01/01/20 20:28: Glucometer 101 01/02/20 04:51: White Blood Count 6.9, Red Blood Count 3.01L, Hemoglobin 9.5L, Hematocrit 31L, Mean Corpuscular Volume 102H, Mean Corpuscular Hemoglobin 32, Mean Corpuscular Hemoglobin Concent 31L, Red Cell Distribution Width 15.4H, Platelet Count 144, Mean Platelet Volume 11.2H, Neutrophils (%) (Auto) 78H, Lymphocytes (%) (Auto) 10L, Monocytes (%) (Auto) 9, Eosinophils (%) (Auto) 3, Basophils (%) (Auto) 0, Neutrophils # (Auto) 5.4, Lymphocytes # (Auto) 0.7L, Monocytes # (Auto) 0.6, Eosinophils # (Auto) 0.2, Basophils # (Auto) 0.0, Sodium Level 140, Potassium Level 3.1L, Chloride Level 113H, Carbon Dioxide Level 20L, Anion Gap 7, Blood Urea Nitrogen 17, Creatinine 0.68, Estimat Glomerular Filtration Rate > 60, BUN/Creatinine Ratio 25, Glucose Level 95, Calcium Level 9.4, Magnesium Level 1.5L Microbiology 12/25/19 MRSA Screen - Final, Complete MRSA not isolated 12/25/19 Blood Culture - Final, Complete No growth Assessment/Plan Assessment/Plan Assess & Plan/Chief Complaint 1. Unresponsiveness -Continue to monitor on fourth medical. 12/26 -Continuing to monitor. 12/27 -lightly more responsive today 12/28 -Patient is unresponsive this morning. -Family has expressed no aggressive measures. Family has expressed when mother passes they would like to have her sent for autopsy and [facility] and they have checked into this already. 12/29 -Patient does not respond to commands. -Consideration to MRI and morning to check for any cerebral infarct. -We'll discuss with family in morning regarding hospice care 12/30 -Her level of responsiveness has slightly improved. Family would like to hold on hospice for now. 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 Family is pleased with her progress 2. Seizure disorder most likely accounting for number 1 -Keppra 1000 mg has been ordered and received first IV in the emergency department. She will continue with 1000 mg IV every 12 hours. -She has also available Ativan 2 mg IV if has seizure. -Will plan on getting an EEG. Will check into closest facility. -Recheck labs in the morning CBC as well as chemistry 14 12/26 -The Keppra appears to be helpful as she is now with no seizure-like activity. -Patient currently in ICU and Dr. Butts consulted -no further seizures She continues to receive IV Keppra since she is not taking anything orally. 12/28 -Seizure activity yesterday and this was controlled with 4 mg total of IV Ativan 12/29 -No reported seizures over the past 24 hours 01/02 -No seizures since December 27 3. Tachycardia on admission 12/26 -She is in normal sinus rhythm 4. Dehydration 12/26 -IV fluids began this morning at 100 mL per hour 12/27 -fluids continue to run at 125 cc per hour 12/28 -IV fluids will be held at this point and she will be given a dose of 20 mg Lasix IV. 12/30 -Check modified swallow study. We'll also begin sips of water. -We'll begin IV fluids at 80 mL per hour 12/31 -Continue with IV fluids at 80 mL per hour. Pending the swallow study she may be L to try to sip more fluids. Her creatinine is stable. 01/01 -bedside swallow study. If she passes will begin slowly introducing fluids 5. Peripheral edema 12/28 -IV Lasix as mentioned Clinical Quality Measures Admission Status Admission Dx 1. Unresponsiveness -Continue to monitor on fourth medical. 2. Seizure disorder most likely accounting for number 1 -Keppra 1000 mg has been ordered and received first IV in the emergency department. She will continue with 1000 mg IV every 12 hours. -She has also available Ativan 2 mg IV if has seizure. -Will plan on getting an EEG. Will check into closest facility. -Recheck labs in the morning CBC as well as chemistry 14 3. Tachycardiasinus -We'll continue to monitor. DVT/VTE Risk/Contraindication: Risk Factor Score Per Nursin RFS Level Per Nursing on Admit: 4+=Very High AWA NIXON MD Jan 02, 2020 07:10
[2020-01-02 08:00] VITALS: BP 156/57
--- NOTE | 2020-01-02 08:00 | Diagnostic Imaging Report ---
INDICATION: Dyspnea COMPARISON STUDY: Chest from 2 days ago. FINDINGS: Frontal view of the chest demonstrates development of mild bibasilar infiltrates or atelectasis. Heart size and vascularity are normal. There is calcification in the aorta. IMPRESSION: There has been development of mild bibasilar infiltrates or atelectasis. Dictated by: Dictated on workstation # [id number]
[2020-01-02] MEDS: ENALAPRIL 5 MG (VASOTEC) TAB PO SCH (08:56)
[2020-01-02] MEDS: LEVETIRACETAM 1,000 MG (KEPPRA) TABLET PO SCH ×2 (08:56→20:06)
--- NOTE | 2020-01-02 09:27 | Speech Therapy Daily Note ---
Speech Daily Progress Note Subjective Date Seen by Provider: Jan 02, 2020 Time Seen by Provider: 08:45 Patient was alert, pleasant, and cooperative for all therapy tasks. Per patients daughter report, patient is feeling much better today and slowly eating more. Patient sat upright in her bed for the duration of treatment. Objective Patient completed compensatory strategies of sitting upright, small bites, and alternating between liquids and solids at 90% with moderate cues. Assessment Assessment Current Status: Good Progress Treatment Plan Continue Plan of Care Speech Short Term Goals Short Term Goals Short Term Goals 1. Patient will tolerate least restrictive diet without s/s of aspiration at 90% accuracy. 2. Patient will utilize compensatory strategies as trained with 90% accuracy with minimal cues. Speech Drawbench Operator Goals Drawbench Operator Goals Patient will maintain adequate nutrition/hydration via safe and effective sw allow function. Speech-Plan Patient/Family Goals Patient/Family Goals: Patient wishes to return to [facility] upon discharge from the acute floor. Treatment Plan Speech Therapy Treatment Plan: Continue Plan of Care Treatment Duration: Jan 03, 2020 Frequency: 3 times per week Estimated Hrs Per Day: .25 hour per day Rehab Potential: Guarded Barriers to Learning: Current medical status Pt/Family Agrees to Plan: Yes Safety Risks/Education Teaching Recipient: Patient, Family Teaching Methods: Demonstration, Discussion Response to Teaching: Verbalize Understanding Education Topics Provided: Continued utilization of compensatory strategies during all mealtimes. Time Speech Therapy Time In: 08:45 Speech Therapy Time Out: 09:00 Total Billed Time: 15 Billed Treatment Time 1JONAH B[address] Jan 02, 2020 09:27
--- NOTE | 2020-01-02 10:09 | Physical Therapy Daily Note ---
PT Daily Note-Current Subjective Patient is up in recline with family present. Mental Status Patient Orientation: Confused Attachments: Woo Catheter, IV Transfers SCALE: Activities may be completed with or without assistive devices. 6-Feqiwdgvwc-tgcbjnp completes the activity by him/herself with no assistance from a helper. 5-Set-up or Clean-up Assistance-helper sets up or cleans up; patient completes activity. [place] assists only prior to or following the activity. 4-Supervision or Touching Assistance-helper provides verbal cues and/or touching/steadying and/or contact guard assistance as patient completes activity. Assistance may be provided throughout the activity or intermittently. 3-Partial/Moderate Assistance-helper does LESS THAN HALF the effort. [place] lifts, holds or supports trunk or limbs, but provides less than half the effort. 2-Substantial/Maximal Assistance-helper does MORE THAN HALF the effort. [place] lifts or holds trunk or limbs and provides more than half the effort. 1-Tmixeefis-mqcgcl does ALL the effort. Patient does none of the effort to complete the activity. Or, the assistance of 2 or more helpers is required for the patient to complete the activity. If activity was not attempted, code reason: 7-Patient Refused. 9-Not Applicable-not attempted and the patient did not perform the activity before the current illness, exacerbation or injury. 10-Not Attempted due to Environmental Limitations-(lack of equipment, weather restraints, etc.). 88-Not Attempted due to Medical Conditions or Safety Concerns. Sit to Stand (QC): 1 dependent assist with sit to stand to FWW with inability to maintain standing without assistance and leaning against chair. Noted left UE weakness and inability to utilize UE with standing in FWW. Weight Bearing Right Lower Extremity: Right Weight Bearing/Tolerated Left Lower Extremity: Left Weight Bearing/Tolerated Exercises Seated Therapy Exercises: Long arc quads Seated Reps: 15 Assessment Noted increased weakness and decreased motor planning with gross motor skills. Patient has difficulty following simple direction. PT to increase activity as tolerated by patient. From a PT standpoint, patient would benefit from group home facility to improve current LOF. PT Detention Goals Detention Goals PT Guest Room Inspector Goals Time Frame: Jan 08, 2020 Roll Left & Right (QC): 3 Sit to Lying (QC): 3 Lying-Sitting on Side/Bed(QC): 3 Sit to Stand (QC): 3 Chair/Cre-gt-Jztqj Xfer(QC): 3 Walk 10 feet (QC): 3 PT Plan Treatment/Plan Treatment Plan: Continue Plan of Care Treatment Plan: Bed Mobility, Education, Functional Activity Merry, Functional Strength, Gait, Safety, Therapeutic Exercise, Transfers Treatment Duration: Jan 08, 2020 Frequency: 6 times per week Estimated Hrs Per Day: .25 hour per day Patient and/or Family Agrees t: Yes Time/GCodes Time In: 925 Time Out: 940 Total Billed Treatment Time: 15 Total Billed Treatment 1 visit FA 15 min JANN POWELL PT Jan 02, 2020 10:08
--- NOTE | 2020-01-02 13:45 | NUR ---
"RD ASSESSMENT PMHx: hypercholesterolemia; HTN; c-diff PT INTERACTION: Pt was sleeping during nutrition assessment for LOS. Note daughter was present and familiar with pt's diet hx. Daughter states pt's current appetite is so-so as pt had been NPO for a few days prior. Daughter states pt has no issues with n/v/c at this time. Daughter states some issues with diarrhea, and prior to her last BM on 01/02, pt had not had one for a week. Daughter states no recent wt changes. Note 3# wt gain x1mon, per chart review. ABNORMAL NUTRITION-RELATED LAB VALUES LOW: K 3.1; Mg 1.4 HIGH: Cl 113 Est. kcal needs: 0012-7284 kcal | 20-25 kcal/kg Est. Pro needs: 74-93 g Pro | 0.8-1.0 g Pro/kg PES STATEMENT: Inadequate oral intake (NI-2.1) related to loss of appetite | diarrhea as evidenced by pt (daughter) interview | avg PO intake <50% x2d INTERVENTION: Continue with current diet order of DYS2 Mechanically Altered diet. Add Ensure Enlive (emma/van) to meals TID, for increased kcal intake. Provides 350 kcal and 13 g Pro per serving. Will continue to follow and reassess as pt needs and status change. MONITOR/EVALUATE: PO Intake; Plan of Care; Hydration Status; Weight Status; Lab Values Sukhi Bahena, MS, RD, LD"
--- NOTE | 2020-01-02 14:15 | NUR ---
DISCHARGE PLANNING: It is intended that patient will be discharged tomorrow back to [facility]. The hope will be that she will qualify for SKILLED. Clinical information has been sent. Spoke with YINA Yuan and explained the plan. They will review the clinical information and make determination .
[2020-01-02 15:53] VITALS: BP 125/88
[2020-01-03 00:10] VITALS: BP 149/61
[2020-01-03] MEDS: POTASSIUM CL 10MEQ/50ML IVPB 50 ML IV SCH (05:29)
[2020-01-03] MEDS: MAGNESIUM 1 GM/100 ML IVPB 100 ML IV SCH (05:29)
[2020-01-03] MEDS: KCL 20 MEQ TAB (K-DUR) PO SCH (05:31)
[2020-01-03 06:16] LABS: BASOPHILS % (AUTO) 0 % (0-10); EOSINOPHILS # (AUTO) 0.2 10^3/uL (0.0-0.3); EOSINOPHILS % (AUTO) 4 % (0-10); HEMATOCRIT 32 % (35-52); HEMOGLOBIN 10.2 G/DL (11.5-16.0); LYMPHOCYTES # (AUTO) 0.8 X 10^3 (1.0-4.0); LYMPHOCYTES % (AUTO) 13 % (12-44); MEAN CORPUSCULAR HEMOGLOBIN 32 PG (25-34); MEAN CORPUSCULAR HGB CONC 32 G/DL (32-36); MEAN CORPUSCULAR VOLUME 100 FL (80-99); MEAN PLATELET VOLUME 11.9 FL (7.4-10.4); MONOCYTES # (AUTO) 0.5 X 10^3 (0.0-1.0); MONOCYTES % (AUTO) 8 % (0-12); NEUTROPHILS # (AUTO) 4.5 X 10^3 (1.8-7.8); NEUTROPHILS % (AUTO) 75 % (42-75); PLATELET COUNT 69 10^3/uL (130-400); RED CELL DISTRIBUTION WIDTH 15.3 % (10.0-14.5)
[2020-01-03 06:27] LABS: BUN/CREATININE RATIO 18; CALCIUM 9.7 MG/DL (8.5-10.1); CARBON DIOXIDE 19 MMOL/L (21-32); CHLORIDE 112 MMOL/L (98-107); CREATININE SERUM 0.67 MG/DL (0.60-1.30); GFR ESTIMATED > 60; GLUCOSE 93 MG/DL (70-105); POTASSIUM 3.6 MMOL/L (3.6-5.0); SODIUM 139 MMOL/L (135-145)
[2020-01-03] MEDS: inSUlin ASPART (NovoLOG) 1 UNIT/0.01 ML (CHARGE PER UNIT) SC SCH ×2 (06:29→11:08)
[2020-01-03] MEDS ORDERED: KCL 10 MEQ TAB (MICRO K) PO SCH (07:00)
--- NOTE | 2020-01-03 07:29 | Discharge Summary ---
Diagnosis/Chief Complaint Date of Admission Dec 25, 2019 at 15:51 Date of Discharge January 03, 2020 Discharge Date: Jan 03, 2020 Discharge Time: 12:00 Admission Diagnosis Admission Diagnosis 1. Unresponsiveness 2. Seizure disorder most likely accounting for number 1 3. Tachycardia 4. Dehydration Discharge Diagnosis 1. Unresponsiveness 2. Seizure disorder most likely accounting for number 1 3. Tachycardia on admission 4. Dehydration 5. Peripheral edema Reason Hospital Visit 83-year-old female brought to [facility] emergency department during the early afternoon of December 25, 2019 after apparently having what look like seizure. Apparently she was being moved when she stiffened up and became with decreased responsiveness. She slowly became more responsive and was only initially responding to pain. In the emergency department she had what appeared to be a seizure-like episode. She does not have a history of seizures. She has not been having any fever. According to her daughter she has been doing quite well up until noon when this happened. Patient was recently in hospital and had EEG ordered but this has not been yet performed. She had MRI done in the hospital after recent unresponsive spell. She was not on any antiseizure medications as of yet. Discharge Summary Hospital Course Was the Problem List Reviewed?: Yes Hospital Course Patient was admitted on December 25, 2019 after an apparent seizure. She was taken to [facility] emergency department where she underwent evaluation. At that time she was also unresponsive. She had been placed on Keppra 1000 mg IV twice daily. The Keppra was successful at controlling her seizures. Patient essentially remained unresponsive up until December 30, 2019. Patient began to answer questions appropriately. Initially family had thought seriously about hospice but with her becoming more coherent and responded appropriately they decline the hospice route. 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 Also during the course of her hospital stay she had became edematous after IV fluids initially in the ICU. Her IV fluids were discontinued on December 28 and she continued to produce urine. He was also at this time the patient was unresponsive and patient was considering hospice. No aggressive measures were at that time. Ultimately IV fluids were restarted back when she became more responsive and answering questions appropriately. Her seizures maintain good control with the Keppra. She was eventually switched to oral medications on January 02, 2020 and had fairly good success with this. She was felt ready for dismissal back to [facility] on January 03. Labs Laboratory Tests 12/31/19 11:36: Glucometer 132H 12/31/19 17:27: Glucometer 133H 12/31/19 23:31: Glucometer 118H 01/01/20 05:25: Red Blood Count 2.99L, Hemoglobin 9.5L, Hematocrit 31L, Mean Corpuscular Volume 103H, Mean Corpuscular Hemoglobin Concent 31L, Red Cell Distribution Width 16.0H , Mean Platelet Volume 11.4H, Neutrophils (%) (Auto) 76H, Lymphocytes (%) (Auto) 11L, Lymphocytes # (Auto) 0.8L, Sodium Level 148H, Chloride Level 120H, Blood Urea Nitrogen 25H, Glucose Level 112H, Calcium Level 10.8H, Magnesium Level 1.4L 01/01/20 12:04: Glucometer 145H 01/01/20 17:45: 01/01/20 20:28: 01/02/20 04:51: Red Blood Count 3.01L, Hemoglobin 9.5L, Hematocrit 31L, Mean Corpuscular Volume 102H, Mean Corpuscular Hemoglobin Concent 31L, Red Cell Distribution Width 15.4H , Mean Platelet Volume 11.2H, Neutrophils (%) (Auto) 78H, Lymphocytes (%) (Auto) 10L, Lymphocytes # (Auto) 0.7L, Potassium Level 3.1L, Chloride Level 113H, Carbon Dioxide Level 20L, Magnesium Level 1.5L 01/02/20 11:47: Glucometer 119H 01/02/20 15:53: 01/02/20 20:35: Glucometer 117H 01/03/20 06:04: Red Blood Count 3.22L, Hemoglobin 10.2L, Hematocrit 32L, Mean Corpuscular Volume 100H, Red Cell Distribution Width 15.3H, Platelet Count 69L, Mean Platelet Volume 11.9H, Lymphocytes # (Auto) 0.8L, Chloride Level 112H, Carbon Dioxide Level 19L Procedures None. Consultations Pulmonology Dr. Butts Discharge Physical Examination Allergies: Coded Allergies: No Known Drug Allergies (Unverified , 10/04/13) Vitals & I&Os Vital Signs Date Time Temp Pulse Resp B/P (MAP) Pulse Ox O2 Delivery O2 Flow Rate FiO2 01/03/20 00:10 36.8 59 16 149/61 (90) 99 Room Air 01/02/20 08:00 1.00 General Appearance: Alert, Oriented X3, No Acute Distress Respiratory: Clear to Auscultation Cardiovascular: Regular Rate Abdominal: Soft Skin: No Rashes Neuro: Other (Speech is somewhat still garbled) Discharge Home Medications Reviewed and agree with Discharge Medication list on patient's Discharge Instruction sheet Instructions to Patient/Family Please see electronic discharge instructions given to patient. Clinical Quality Measures DVT/VTE Risk/Contraindication: Risk Factor Score Per Nursin RFS Level Per Nursing on Admit: 4+=Very High AWA NIXON MD Jan 03, 2020 07:29
[2020-01-03] MEDS ORDERED: POTA10TA6 PO (07:41)
[2020-01-03] MEDS ORDERED: ENLP5T PO (07:41)
[2020-01-03] MEDS ORDERED: LEVE10006 PO (07:41)
--- NOTE | 2020-01-03 07:43 | Discharge Inst-Skilled Nursing ---
Discharge Inst-Skilled NF Reconcile Patient Problems Problems Reviewed?: Yes Consult/Follow Up/Orders Follow Up Appt.: 1 week Skilled NF Admit to: [facility] Certification (SNF) I certify that SNF services are required to be given on an inpatient basis because of the above named patient's need for senior living care on a continuing basis for the conditions(s) for which he/she was receiving inpatient hospital services prior to his/her transfer to the SNF. Fdc Facility Order: Nursing Services, Ribbon Blocker-Evaluate & Treat, Physical Therapy-Evaluate & Treat, Speech Language-Evaluate & Treat Oxygen Delivery Method: Room Air Discharge Diet: Soft Diet Daily Activity as Tolerated: Yes Resuscitation Status: Do Not Resuscitate Type of Care: Comfort Measures New & Resume Previous Orders Awa Nixon Jan 03, 2020 07:41 AWA NIXON MD Jan 03, 2020 07:43
[2020-01-03 07:55] VITALS: BP 186/79
[2020-01-03] MEDS: PATCH REMOVAL TP SCH (09:50)
[2020-01-03] MEDS: ENALAPRIL 5 MG (VASOTEC) TAB PO SCH (09:50)
[2020-01-03] MEDS: LEVETIRACETAM 1,000 MG (KEPPRA) TABLET PO SCH (09:50)
[2020-01-03] MEDS: SCOPOLAMINE 1.5 MG (TRANSDERM-SCOP) PATCH TD SCH (09:50)
--- NOTE | 2020-01-03 11:13 | NUR ---
Report called to Blanco BREAUX at [facility].
--- NOTE | 2020-01-06 06:58 | Physician Query Clarification ---
PQ-Uncertain Diagnosis Admission/Discharge Admission Date: Dec 25, 2019 at 15:51 Discharge Date: Jan 03, 2020 at 12:00 The medical record reflects the following clinical scenario: History/Risk Factors: Seizures, Decreased responsiveness Clinical Findings: Metabolic encephalopathy, Seizure disorder Treatment: Keppra 1000 mg Question: Is [Metabolic Encephalopathy] a clinically valid diagnosis? [[Metabolic Encephalopathy] was documented in the [Pulmonology Progress 12/[address] Homar Butts MD] with no further documentation in the medical record. Please document a response in Progress Note or Discharge Summary. 1. Yes, clinically valid, condition resolved. 2. No, condition ruled out. 3. Other, with explanation of clinical findings. 4. Undetermined, no explanation for clinical findings. PHYSICIAN RESPONSE Diagnosis clinically valid: Undetermined Please remember a lack of response to the above will prompt a phone page by [facility] staff. In responding to this query, please exercise your independent professional judgment. The purpose of this communication is to more accurately reflect the complexity of your patients condition. The fact that a question is asked does not imply that any particular answer is desired or expected. Thank you for your timely response to this clarification. Requestors name: [[place]] Phone # [[phone] ] THIS PHYSICIAN QUERY FORM IS A PERMANENT PART OF THE MEDICAL RECORD ELIZABETH MINA Jan 06, 2020 06:58 AWA NIXON MD Jan 12, 2020 13:38
--- OUTSIDE RECORDS SUMMARY | 2020-01-21 04:41 | XMS REPORT | Continuity of Care Document ---
Author Organization Unknown Address Unknown Phone Unavailable Allergies Active Description Code Type Severity Reaction Onset Reported/Identified Relationship to Patient Clinical Status Yes No Known Drug Allergies [id number] Drug Allergy Unknown N/A 10/04/2013 Medications There is no data. Problems Date Dx Coded Attending Type Code Diagnosis Diagnosed By 06/25/2010 Ot 211.3 06/25/2010 Ot V16.0 06/25/2010 Ot V67.09 04/18/2012 692.9 DERM ATITIS CONTACT UNSPECIFIED 04/18/2012 AVA BRYAN DDS 692 .9 DERMATITIS CONTACT UNSPECIFIED 04/18/2012 MEZA DO TAMMY K 692.9 DERMATITIS CONTACT UNSPECIFIED 04/18/2012 MEZA DO TAMMY K 692.9 DERMATITIS CONTACT UNSPECIFIED 04/18/2012 MADL MONICA ARTURO L 692 .9 DERMATITIS CONTACT UNSPECIFIED 09/04/2013 MEZA DO TAMMY K V04.81 FLU SHOT 09/04/2013 MEZA DO TAMMY K V04.81 FLU SHOT 09/04/2013 MADBrenton SITE OPERATIONS MANAGER, ARTURO L V04 .81 FLU SHOT 10/04/2013 CHEL PAEZ, JULIENNE Lara Ot 211. 3 BENIGN NEOPLASM LG BOWEL 10/04/2013 CHEL PAEZ, JULIENNE Lara Ot V16. 0 FAMILY HX-GI MALIGNANCY 10/04/2013 JULIENNE MILLIGAN MD Ot V76. 51 SCREEN MAL NEOP-COLON 12/08/2014 LUCIANA ANDERSON ARTURO L 686 .8 OTHER SPECIFIED LOCAL INFECTIONS OF SKIN AND SUBCUTANEOUS TISSUE 12/08/2014 LUCIANA ANDERSON ARTURO L 719 .47 PAIN IN JOINT INVOLVING ANKLE AND FOOT 11/02/2015 Ot V76.12 11/02/2015 Ot V76.12 11/02/2015 JULIENNE MILLIGAN MD Ot V72. 84 11/02/2015 JULIENNE MILLIGAN MD Ot V72. 84 11/25/2015 HUSSAIN PAEZ, AWA Bay Ot Z12. 31 05/08/2017 AWA NIXON MD, Ot A04. 7 ENTEROCOLITIS DUE TO CLOSTRIDIUM DIFFICI 05/09/2017 AWA NIXON MD, Ot A04. 7 ENTEROCOLITIS DUE TO CLOSTRIDIUM DIFFICI 05/09/2017 AAW NIXON MD, Ot C22. 9 MALIG NEOPLASM OF LIVER, NOT SPECIFIED A 05/09/2017 AWA NIXON MD Ot D63. 0 ANEMIA IN NEOPLASTIC DISEASE 05/09/2017 AWA NIXON MD, Ot E66. 9 OBESITY, UNSPECIFIED 05/09/2017 AWA NIXON MD Ot E86. 0 DEHYDRATION 05/09/2017 AWA NIXON MD, Ot M19. 91 PRIMARY OSTEOARTHRITIS, UNSPECIFIED SITE 05/09/2017 AWA NIXON MD, Ot R63. 0 ANOREXIA 05/09/2017 AWA NIXON MD Ot Z66 DO NOT RESUSCITATE 05/09/2017 AWA NIXON MD, Ot Z68. 35 BODY MASS INDEX (BMI) 35.0-35.9, ADULT 02/21/2018 AWA NIXON MD, Ot C22. 9 MALIG NEOPLASM OF LIVER, NOT SPECIFIED A 02/21/2018 AWA NIXON MD, Ot E87. 6 HYPOKALEMIA 02/21/2018 AWA NIXON MD, Ot F32. 9 MAJOR DEPRESSIVE DISORDER, SINGLE EPISOD 02/21/2018 AWA NIXON MD, Ot F41. 9 ANXIETY DISORDER, UNSPECIFIED 02/21/2018 AWA NIXON MD, Ot M19. 91 PRIMARY OSTEOARTHRITIS, UNSPECIFIED SITE 02/21/2018 AWA NIXON MD, Ot M25.521 PAIN IN RIGHT ELBOW 02/21/2018 AWA NIXON MD Ot R41. 0 DISORIENTATION, UNSPECIFIED 02/21/2018 AWA NIXON MD, Ot R44. 3 HALLUCINATIONS, UNSPECIFIED 02/21/2018 AWA NIXON MD Ot R60. 0 LOCALIZED EDEMA 02/21/2018 AWA NIXON MD Ot S00.03XA CONTUSION OF SCALP, INITIAL ENCOUNTER 02/21/2018 AWA NIXON MD, Ot S00.83XA CONTUSION OF OTHER PART OF HEAD, INITIAL 02/21/2018 AWA NIXON MD Ot S09.93XA UNSPECIFIED INJURY OF FACE, INITIAL ENCO 02/21/2018 AWA NIXON MD Ot S30.0XXA CONTUSION OF LOWER BACK AND PELVIS, INIT 02/21/2018 AWA NIXON MD, Ot T79.6XXA TRAUMATIC ISCHEMIA OF MUSCLE, INITIAL EN 02/21/2018 AWA NIXON MD Ot W18.30XA FALL ON SAME LEVEL, UNSPECIFIED, INITIAL 02/21/2018 AWA NIXON MD Ot Y92.003 [facility]ED[facility] OF [facility] NON-INSTITUT (PRIVATE) R 02/21/2018 AWA NIXON [...] PRESENCE OF ARTIFICIAL KNEE JOINT, BILAT 07/23/2018 JULIENNE MILLIGAN MD Ot V72. 84 EXAM PRE-OPERATIVE NOS 07/23/2018 JULIENNE MILLIGAN MD Ot V72. 84 EXAM PRE-OPERATIVE NOS 07/23/2018 AWA NIXON MD Ot Z12. 31 ENCNTR SCREEN MAMMOGRAM FOR MALIGNANT NE 07/24/2018 LIAM PORRAS DO Ot F32.9 MAJOR DEPRESSIVE DISORDER, SINGLE EPISOD 07/24/2018 LIAM PORRAS DO Ot F41.9 ANXIETY DISORDER, UNSPECIFIED 07/24/2018 LIAM PORRAS DO Ot M10.9 GOUT, UNSPECIFIED 07/24/2018 LIAM PORRAS DO Ot N39.0 URINARY TRACT INFECTION, SITE NOT SPECIF 07/24/2018 LIAM PORRAS DO Ot R53.1 WEAKNESS 07/24/2018 CHIQUITA CHANDRA LIAM [...] JOINT, BILAT 09/18/2018 AWA NIXON MD Ot C22. 9 MALIG NEOPLASM OF LIVER, NOT SPECIFIED A 09/18/2018 AWA NIXON MD Ot D64. 89 OTHER SPECIFIED ANEMIAS 09/18/2018 AWA NIXON MD Ot E87. 2 ACIDOSIS 09/18/2018 AWA NIXON MD, Ot F32. 9 MAJOR DEPRESSIVE DISORDER, SINGLE EPISOD 09/18/2018 AWA NIXON MD, Ot F41. 9 ANXIETY DISORDER, UNSPECIFIED 09/18/2018 AWA NIXON MD, Ot M10. 9 GOUT, UNSPECIFIED 09/18/2018 AWA NIXON MD Ot M19. 91 PRIMARY OSTEOARTHRITIS, UNSPECIFIED SITE 09/18/2018 AWA NIXON MD Ot R41. 0 DISORIENTATION, UNSPECIFIED 09/18/2018 AWA NIXON MD, Ot R50. 9 FEVER, UNSPECIFIED 09/18/2018 AWA NIXON MD Ot S00.83XA CONTUSION OF OTHER PART OF HEAD, INITIAL 09/18/2018 AWA NIXON MD Ot S50.01XA CONTUSION OF RIGHT ELBOW, INITIAL ENCOUN 09/18/2018 AWA NIXON MD, Ot W19.XXXA UNSPECIFIED FALL, INITIAL ENCOUNTER 09/18/2018 AWA NIXON MD Ot Y92.002 BATHRM OF [facility] NON-INSTITUT RESDNCE SNGL 09/18/2018 AWA NIXON MD, Ot Z66 DO NOT RESUSCITATE 09/18/2018 AWA NIXON MD, Ot Z96.653 PRESENCE OF ARTIFICIAL KNEE JOINT, BILAT 04/23/2019 JORDI ROLLINS APRN Ot F32 .9 MAJOR DEPRESSIVE DISORDER, SINGLE EPISOD 04/23/2019 JORDI ROLLINS APRN Ot F41 .9 ANXIETY DISORDER, UNSPECIFIED 04/23/2019 JORDI ROLLINS APRN Ot M10 .9 GOUT, UNSPECIFIED 04/23/2019 JORDI ROLLINS APRN Ot R42 DIZZINESS AND GIDDINESS 04/23/2019 JORDI ROLLINS APRN Ot R51 HEADACHE 04/23/2019 JORDI ROLLINS APRN Ot Z80 .0 FAMILY HISTORY OF MALIGNANT NEOPLASM OF 04/23/2019 JORDI ROLLINS APRN Ot Z82.49 FAMILY HX OF ISCHEM HEART DIS AND OTH DI 04/23/2019 JORDI ROLLINS APRN Ot Z87.19 PERSONAL HISTORY OF OTHER DISEASES OF TH 04/23/2019 JORDI ROLLINS APRN Ot Z90.710 ACQUIRED ABSENCE OF BOTH CERVIX AND UTER 04/23/2019 JORDI ROLLINS APRN Ot Z96.653 PRESENCE OF ARTIFICIAL KNEE JOINT, BILAT 04/29/2019 JORDI ROLLINS APRN Ot F32 .9 MAJOR DEPRESSIVE DISORDER, SINGLE EPISOD 04/29/2019 JORDI ROLLINS APRN Ot F41 .9 ANXIETY DISORDER, UNSPECIFIED 04/29/2019 JORDI ROLLINS APRN Ot M10 .9 GOUT, UNSPECIFIED 04/29/2019 JORDI ROLLINS APRN Ot R42 DIZZINESS AND GIDDINESS 04/29/2019 ROLLINS, PETER J SITE OPERATIONS MANAGER Ot R51 HEADACHE 04/29/2019 JORDI ROLLINS SITE OPERATIONS MANAGER Ot Z80 .0 FAMILY HISTORY OF MALIGNANT NEOPLASM OF 04/29/2019 JORDI ROLLINS APRN Ot Z82.49 FAMILY HX OF ISCHEM HEART DIS AND OTH DI 04/29/2019 JORDI ROLLINS APRN Ot Z87.19 PERSONAL HISTORY OF OTHER DISEASES OF TH 04/29/2019 JORDI ROLLINS APRN Ot Z90.710 ACQUIRED ABSENCE OF BOTH CERVIX AND UTER 04/29/2019 JORDI ROLLINS APRN Ot Z96.653 PRESENCE OF ARTIFICIAL KNEE JOINT, BILAT 10/31/2019 HUSSAIN PAEZ, AWA Bay Ot Z12. 31 ENCNTR SCREEN MAMMOGRAM FOR MALIGNANT NE 10/31/2019 JORDI ROLLINS APRN Ot F32 .9 MAJOR DEPRESSIVE DISORDER, SINGLE EPISOD 10/31/2019 JORDI ROLLINS APRN Ot F41 .9 ANXIETY DISORDER, UNSPECIFIED 10/31/2019 JORDI ROLLINS APRN Ot M10 .9 GOUT, UNSPECIFIED 10/31/2019 JORDI ROLLINS APRN Ot R41.82 ALTERED MENTAL STATUS, UNSPECIFIED 10/31/2019 JORDI ROLLINS APRN Ot Z80 .0 FAMILY HISTORY OF MALIGNANT NEOPLASM OF 10/31/2019 JORDI ROLLINS APRN Ot Z80.42 FAMILY HISTORY OF MALIGNANT NEOPLASM OF 10/31/2019 JORDI ROLLINS APRN Ot Z82.49 FAMILY HX OF ISCHEM HEART DIS AND OTH DI 10/31/2019 JORDI ROLLINS APRN Ot Z85.05 PERSONAL HISTORY OF MALIGNANT NEOPLASM O 10/31/2019 JORDI ROLLINS APRN Ot Z90.710 ACQUIRED ABSENCE OF BOTH CERVIX AND UTER 10/31/2019 JORDI ROLLINS APRN Ot Z96.653 PRESENCE OF ARTIFICIAL KNEE JOINT, BILAT 11/04/2019 JORDI ROLLINS APRN Ot F32 .9 MAJOR DEPRESSIVE DISORDER, SINGLE EPISOD 11/04/2019 JORDI ROLLINS APRN Ot F41 .9 ANXIETY DISORDER, UNSPECIFIED 11/04/2019 JORDI ROLLINS SITE OPERATIONS MANAGER Ot M10 .9 GOUT, UNSPECIFIED 11/04/2019 JORDI ROLLINS SITE OPERATIONS MANAGER Ot R41.82 ALTERED MENTAL STATUS, UNSPECIFIED 11/04/2019 JORDI ROLLINS SITE OPERATIONS MANAGER Ot Z80 .0 FAMILY HISTORY OF MALIGNANT NEOPLASM OF 11/04/2019 JORDI ROLLINS SITE OPERATIONS MANAGER Ot Z80.42 FAMILY HISTORY OF MALIGNANT NEOPLASM OF 11/04/2019 JORDI ROLLINS APRN Ot Z82.49 FAMILY HX OF ISCHEM HEART DIS AND OTH DI 11/04/2019 JORDI ROLLINS SITE OPERATIONS MANAGER Ot Z85.05 PERSONAL HISTORY OF MALIGNANT NEOPLASM O 11/04/2019 JORDI ROLLINS APRN Ot Z90.710 ACQUIRED ABSENCE OF BOTH CERVIX AND UTER 11/04/2019 JORDI ROLLINS APRN Ot Z96.653 PRESENCE OF ARTIFICIAL KNEE JOINT, BILAT 11/05/2019 HUSSAIN PAEZ, AWA Bay Ot Z12. 31 ENCNTR SCREEN MAMMOGRAM FOR MALIGNANT NE 11/07/2019 JORDI ROLLINS APRN Ot F32 .9 MAJOR DEPRESSIVE DISORDER, SINGLE EPISOD 11/07/2019 JORDI ROLLINS APRN Ot F41 .9 ANXIETY DISORDER, UNSPECIFIED 11/07/2019 JORDI ROLLINS APRN Ot M10 .9 GOUT, UNSPECIFIED 11/07/2019 JORDI ROLLINS APRN Ot R41.82 ALTERED MENTAL STATUS, UNSPECIFIED 11/07/2019 JORDI ROLLINS APRN Ot Z80 .0 FAMILY HISTORY OF MALIGNANT NEOPLASM OF 11/07/2019 JORDI ROLLINS APRN Ot Z80.42 FAMILY HISTORY OF MALIGNANT NEOPLASM OF 11/07/2019 JORDI ROLLINS APRN Ot Z82.49 FAMILY HX OF ISCHEM HEART DIS AND OTH DI 11/07/2019 JORDI ROLLINS APRN Ot Z85.05 PERSONAL HISTORY OF MALIGNANT NEOPLASM O 11/07/2019 JORDI ROLLINS APRN Ot Z90.710 ACQUIRED ABSENCE OF BOTH CERVIX AND UTER 11/07/2019 JORDI ROLLINS APRN Ot Z96.653 PRESENCE OF ARTIFICIAL KNEE JOINT, BILAT 11/08/2019 BISHOP DO, RASHEED Ot C22.9 MALIG NEOPLASM OF LIVER, NOT SPECIFIED A 11/08/2019 BISHOP DO, RASHEED Ot D69.6 THROMBOCYTOPENIA, UNSPECIFIED 11/08/2019 BISHOP DO, RASHEED Ot E83.52 HYPERCALCEMIA 11/08/2019 BISHOP DO, RASHEED Ot E87.6 HYPOKALEMIA 11/08/2019 BISHOP DO, RASHEED Ot F32.9 MAJOR DEPRESSIVE DISORDER, SINGLE EPISOD 11/08/2019 BISHOP DO, RASHEED Ot F41.9 ANXIETY DISORDER, UNSPECIFIED 11/08/2019 BISHOP DO, RASHEED Ot I10 ESSENTIAL (PRIMARY) HYPERTENSION 11/08/2019 BISHOP DO, RASHEED Ot I95.1 ORTHOSTATIC HYPOTENSION 11/08/2019 BISHOP DO, RASHEED Ot M10.9 GOUT, UNSPECIFIED 11/08/2019 BISHOP DO, RASHEED Ot M19.91 PRIMARY OSTEOARTHRITIS, UNSPECIFIED SITE 11/08/2019 BISHOP DO, RASHEED Ot R29.6 REPEATED FALLS 11/08/2019 BISHOP DO, RASHEED Ot T50.2X 5A ADVRS EFF OF CRBN-ANHYDR INHIBTR, BENZO 12/04/2019 AWA NIXON MD, Ot Z12. 31 ENCNTR SCREEN MAMMOGRAM FOR MALIGNANT NE 12/04/2019 AWA NIXON MD, Ot Z12. 31 ENCNTR SCREEN MAMMOGRAM FOR MALIGNANT NE 12/05/2019 AWA NIXON MD, Ot Z12. 31 ENCNTR SCREEN MAMMOGRAM FOR MALIGNANT NE 12/05/2019 AWA NIXON MD, Ot Z12. 31 ENCNTR SCREEN MAMMOGRAM FOR MALIGNANT NE 12/06/2019 AWA NIXON MD, Ot Z12. 31 ENCNTR SCREEN MAMMOGRAM FOR MALIGNANT NE 12/06/2019 AWA NIXON MD, Ot Z12. 31 ENCNTR SCREEN MAMMOGRAM FOR MALIGNANT NE 12/06/2019 AWA NIXON MD Ot F32. 9 MAJOR DEPRESSIVE DISORDER, SINGLE EPISOD 12/06/2019 AWA NIXON MD Ot F41. 9 ANXIETY DISORDER, UNSPECIFIED 12/06/2019 AWA NIXON MD Ot H26. 9 UNSPECIFIED CATARACT 12/06/2019 AWA NIXON MD Ot H91. 90 UNSPECIFIED HEARING LOSS, UNSPECIFIED EA 12/06/2019 AWA NIXON MD Ot I10 ESSENTIAL (PRIMARY) HYPERTENSION 12/06/2019 AWA NIXON MD Ot M10. 9 GOUT, UNSPECIFIED 12/06/2019 AWA NIXON MD Ot M19. 91 PRIMARY OSTEOARTHRITIS, UNSPECIFIED SITE 12/06/2019 AWA NIXON MD Ot R41. 0 DISORIENTATION, UNSPECIFIED 12/06/2019 AWA NIXON MD, Ot R55 SYNCOPE AND COLLAPSE 12/06/2019 AWA NIXON MD Ot Z66 DO NOT RESUSCITATE 12/06/2019 AWA NIXON MD Ot Z79.899 OTHER SKILLED NURSING (CURRENT) DRUG THERAPY 12/06/2019 AWA NIXON MD, Ot Z87. 19 PERSONAL HISTORY OF OTHER DISEASES OF 12/06/2019 AWA NIXON MD, Ot Z96.653 PRESENCE OF ARTIFICIAL KNEE JOINT, BILAT 12/06/2019 AWA NIXON MD Ot F32. 9 MAJOR DEPRESSIVE DISORDER, SINGLE EPISOD 12/06/2019 AWA NIXON MD, Ot F41. 9 ANXIETY DISORDER, UNSPECIFIED 12/06/2019 AWA NIXON MD, Ot H26. 9 UNSPECIFIED CATARACT 12/06/2019 AWA NIXON MD, Ot H91. 90 UNSPECIFIED HEARING LOSS, UNSPECIFIED EA 12/06/2019 AWA NIXON MD Ot I10 ESSENTIAL (PRIMARY) HYPERTENSION 12/06/2019 AWA NIXON MD Ot M10. 9 GOUT, UNSPECIFIED 12/06/2019 AWA NIXON MD, Ot M19. 91 PRIMARY OSTEOARTHRITIS, UNSPECIFIED SITE 12/06/2019 AWA NIXON MD, Ot R41. 0 DISORIENTATION, UNSPECIFIED 12/06/2019 AWA NIXON MD Ot R55 SYNCOPE AND COLLAPSE 12/06/2019 AWA NIXON MD Ot Z66 DO NOT RESUSCITATE 12/06/2019 AWA NIXON MD, Ot Z79.899 OTHER FRAME TRIMMER (CURRENT) DRUG THERAPY 12/06/2019 AWA NIXON MD, Ot Z87. 19 PERSONAL HISTORY OF OTHER DISEASES OF 12/06/2019 AWA NIXON MD, Ot Z96.653 PRESENCE OF ARTIFICIAL KNEE JOINT, BILAT 12/21/2019 AWA NIXON MD, Ot Z12. 31 ENCNTR SCREEN MAMMOGRAM FOR MALIGNANT NE 12/25/2019 AWA NIXON MD, Ot Z12. 31 ENCNTR SCREEN MAMMOGRAM FOR MALIGNANT NE 12/25/2019 AWA NIXON MD, Ot Z12. 31 ENCNTR SCREEN MAMMOGRAM FOR MALIGNANT NE 12/25/2019 AWA NIXON MD, Ot Z12. 31 ENCNTR SCREEN MAMMOGRAM FOR MALIGNANT NE 12/25/2019 AWA NIXON MD, Ot Z12. 31 ENCNTR SCREEN MAMMOGRAM FOR MALIGNANT NE 2019 AWA NIXON MD, Ot Z12. 31 ENCNTR SCREEN MAMMOGRAM FOR MALIGNANT NE 12/27/2019 AWA NIXON MD Ot D64. 9 ANEMIA, UNSPECIFIED 12/27/2019 AWA NIXON MD, Ot E78. 00 PURE HYPERCHOLESTEROLEMIA, UNSPECIFIED 12/27/2019 AWA NIXON MD, Ot F32. 9 MAJOR DEPRESSIVE DISORDER, SINGLE EPISOD 12/27/2019 AWA NIXON MD, Ot F41. 9 ANXIETY DISORDER, UNSPECIFIED 12/27/2019 AWA NIXON MD, Ot G40.909 EPILEPSY, UNSP, NOT INTRACTABLE, WITHOUT 12/27/2019 AWA NIXON MD Ot I10 ESSENTIAL (PRIMARY) HYPERTENSION 12/27/2019 AWA NIXON MD Ot M10. 9 GOUT, UNSPECIFIED 12/27/2019 AWA NIXON MD, Ot M19. 91 PRIMARY OSTEOARTHRITIS, UNSPECIFIED SITE 12/27/2019 AWA NIXON MD Ot R00. 0 TACHYCARDIA, UNSPECIFIED 12/27/2019 AWA NIXON MD, Ot R53. 83 OTHER FATIGUE 12/27/2019 AWA NIXON MD, Ot T42.4X5A ADVERSE EFFECT OF BENZODIAZEPINES, INITI 12/27/2019 AWA NIXON MD Ot Z66 DO NOT RESUSCITATE 12/27/2019 AWA NIXON MD, Ot Z96.653 PRESENCE OF ARTIFICIAL KNEE JOINT, BILAT 12/28/2019 AWA NIXON MD, Ot Z12. 31 ENCNTR SCREEN MAMMOGRAM FOR MALIGNANT NE 12/28/2019 AWA NIXON MD, Ot D64. 9 ANEMIA, UNSPECIFIED 12/28/2019 AWA NIXON MD, Ot E78. 00 PURE HYPERCHOLESTEROLEMIA, UNSPECIFIED 12/28/2019 AWA NIXON MD, Ot F32. 9 MAJOR DEPRESSIVE DISORDER, SINGLE EPISOD 12/28/2019 AWA NIXON MD, Ot F41. 9 ANXIETY DISORDER, UNSPECIFIED 12/28/2019 AWA NIXON MD, Ot G40.909 EPILEPSY, UNSP, NOT INTRACTABLE, WITHOUT 12/28/2019 AWA NIXON MD Ot I10 ESSENTIAL (PRIMARY) HYPERTENSION 12/28/2019 AWA NIXON MD, Ot M10. 9 GOUT, UNSPECIFIED 12/28/2019 AWA NIXON MD, Ot M19. 91 PRIMARY OSTEOARTHRITIS, UNSPECIFIED SITE 12/28/2019 AWA NIXON MD Ot R00. 0 TACHYCARDIA, UNSPECIFIED 12/28/2019 AWA NIXON MD, Ot R53. 83 OTHER FATIGUE 12/28/2019 AWA NIXON MD, Ot T42.4X5A ADVERSE EFFECT OF BENZODIAZEPINES, INITI 12/28/2019 AWA NIXON MD, Ot Z66 DO NOT RESUSCITATE 12/28/2019 AWA NIXON MD, Ot Z96.653 PRESENCE OF ARTIFICIAL KNEE JOINT, BILAT 12/30/2019 AWA NIXON MD Ot D64. 9 ANEMIA, UNSPECIFIED 12/30/2019 AWA NIXON MD Ot E78. 00 PURE HYPERCHOLESTEROLEMIA, UNSPECIFIED 12/30/2019 AWA NIXON MD Ot F32. 9 MAJOR DEPRESSIVE DISORDER, SINGLE EPISOD 12/30/2019 AWA NIXON MD, Ot F41. 9 ANXIETY DISORDER, UNSPECIFIED 12/30/2019 AWA NIXON MD, Ot G40.909 EPILEPSY, UNSP, NOT INTRACTABLE, WITHOUT 12/30/2019 AWA NIXON MD Ot I10 ESSENTIAL (PRIMARY) HYPERTENSION 12/30/2019 AWA NIXON MD, Ot M10. 9 GOUT, UNSPECIFIED 12/30/2019 AWA NIXON MD, Ot M19. 91 PRIMARY OSTEOARTHRITIS, UNSPECIFIED SITE 12/30/2019 AWA NIXON MD, Ot R00. 0 TACHYCARDIA, UNSPECIFIED 12/30/2019 AWA NIXON MD, Ot R53. 83 OTHER FATIGUE 12/30/2019 AWA NIXON MD, Ot T42.4X5A ADVERSE EFFECT OF BENZODIAZEPINES, INITI 12/30/2019 AWA NIXON MD Ot Z66 DO NOT RESUSCITATE 12/30/2019 AWA NIXON MD Ot Z96.653 PRESENCE OF ARTIFICIAL KNEE JOINT, BILAT 12/30/2019 HUSSAIN PAEZ, AWA Bay Ot Z12. 31 ENCNTR SCREEN MAMMOGRAM FOR MALIGNANT NE 12/30/2019 AWA NIXON MD, Ot D64. 9 ANEMIA, UNSPECIFIED 12/30/2019 AWA NIXON MD Ot E78. 00 PURE HYPERCHOLESTEROLEMIA, UNSPECIFIED 12/30/2019 AWA NIXON MD Ot F32. 9 MAJOR DEPRESSIVE DISORDER, SINGLE EPISOD 12/30/2019 AWA NIXON MD, Ot F41. 9 ANXIETY DISORDER, UNSPECIFIED 12/30/2019 AWA NIXON MD, Ot G40.909 EPILEPSY, UNSP, NOT INTRACTABLE, WITHOUT 12/30/2019 AWA NIXON MD, Ot I10 ESSENTIAL (PRIMARY) HYPERTENSION 12/30/2019 AWA NIXON MD, Ot M10. 9 GOUT, UNSPECIFIED 12/30/2019 AWA NIXON MD Ot M19. 91 PRIMARY OSTEOARTHRITIS, UNSPECIFIED SITE 12/30/2019 AWA NIXON MD Ot R00. 0 TACHYCARDIA, UNSPECIFIED 12/30/2019 AWA NIXON MD Ot R53. 83 OTHER FATIGUE 12/30/2019 AWA NIXON MD, Ot T42.4X5A ADVERSE EFFECT OF BENZODIAZEPINES, INITI 12/30/2019 AWA NIXON MD Ot Z66 DO NOT RESUSCITATE 12/30/2019 AWA NIXON MD, Ot Z96.653 PRESENCE OF ARTIFICIAL KNEE JOINT, BILAT 01/02/2020 AWA NIXON MD Ot D64. 9 ANEMIA, UNSPECIFIED 01/02/2020 AWA NIXON MD Ot E78. 00 PURE HYPERCHOLESTEROLEMIA, UNSPECIFIED 01/02/2020 AWA NIXON MD, Ot F32. 9 MAJOR DEPRESSIVE DISORDER, SINGLE EPISOD 01/02/2020 AWA NIXON MD, Ot F41. 9 ANXIETY DISORDER, UNSPECIFIED 01/02/2020 AWA NIXON MD Ot G40.909 EPILEPSY, UNSP, NOT INTRACTABLE, WITHOUT 01/02/2020 AWA NIXON MD Ot I10 ESSENTIAL (PRIMARY) HYPERTENSION 01/02/2020 AWA NIXON MD Ot M10. 9 GOUT, UNSPECIFIED 01/02/2020 AWA NIXON MD Ot M19. 91 PRIMARY OSTEOARTHRITIS, UNSPECIFIED SITE 01/02/2020 AWA NIXON MD Ot R00. 0 TACHYCARDIA, UNSPECIFIED 01/02/2020 AWA NIXON MD Ot R53. 83 OTHER FATIGUE 01/02/2020 AWA NIXON MD Ot T42.4X5A ADVERSE EFFECT OF BENZODIAZEPINES, INITI 01/02/2020 AWA NIXON MD Ot Z66 DO NOT RESUSCITATE 01/02/2020 AWA NIXON MD, Ot Z96.653 PRESENCE OF ARTIFICIAL KNEE JOINT, BILAT 01/02/2020 AWA NIXON MD, Ot D64. 9 ANEMIA, UNSPECIFIED 01/02/2020 AWA NIXON MD, Ot E78. 00 PURE HYPERCHOLESTEROLEMIA, UNSPECIFIED 01/02/2020 AWA NIXON MD Ot F32. 9 MAJOR DEPRESSIVE DISORDER, SINGLE EPISOD 01/02/2020 AWA NIXON MD, Ot F41. 9 ANXIETY DISORDER, UNSPECIFIED 01/02/2020 AWA NIXON MD, Ot G40.909 EPILEPSY, UNSP, NOT INTRACTABLE, WITHOUT 01/02/2020 AWA NIXON MD Ot I10 ESSENTIAL (PRIMARY) HYPERTENSION 01/02/2020 AWA NIXON MD, Ot M10. 9 GOUT, UNSPECIFIED 01/02/2020 AWA NIXON MD, Ot M19. 91 PRIMARY OSTEOARTHRITIS, UNSPECIFIED SITE 01/02/2020 AWA NIXON MD Ot R00. 0 TACHYCARDIA, UNSPECIFIED 01/02/2020 AWA NIXON MD Ot R53. 83 OTHER FATIGUE 01/02/2020 AWA NIXON MD, Ot T42.4X5A ADVERSE EFFECT OF BENZODIAZEPINES, INITI 01/02/2020 AWA NIXON MD Ot Z66 DO NOT RESUSCITATE 01/02/2020 AWA NIXON MD, Ot Z96.653 PRESENCE OF ARTIFICIAL KNEE JOINT, BILAT 01/03/2020 AWA NIXON MD Ot D64. 9 ANEMIA, UNSPECIFIED 01/03/2020 AWA NIXON MD Ot E78. 00 PURE HYPERCHOLESTEROLEMIA, UNSPECIFIED 01/03/2020 AWA NIXON MD, Ot F32. 9 MAJOR DEPRESSIVE DISORDER, SINGLE EPISOD 01/03/2020 AWA NIXON MD, Ot F41. 9 ANXIETY DISORDER, UNSPECIFIED 01/03/2020 AWA NIXON MD, Ot G40.909 EPILEPSY, UNSP, NOT INTRACTABLE, WITHOUT 01/03/2020 AWA NIXON MD, Ot I10 ESSENTIAL (PRIMARY) HYPERTENSION 01/03/2020 AWA NIXON MD, Ot M10. 9 GOUT, UNSPECIFIED 01/03/2020 AWA NIXON MD, Ot M19. 91 PRIMARY OSTEOARTHRITIS, UNSPECIFIED SITE 01/03/2020 AWA NIXON MD, Ot R00. 0 TACHYCARDIA, UNSPECIFIED 01/03/2020 AWA NIXON MD, Ot R53. 83 OTHER FATIGUE 01/03/2020 AWA NIXON MD, Ot T42.4X5A ADVERSE EFFECT OF BENZODIAZEPINES, INITI 01/03/2020 AWA NIXON MD, Ot Z66 DO NOT RESUSCITATE 01/03/2020 AWA NIXON MD, Ot Z96.653 PRESENCE OF ARTIFICIAL KNEE JOINT, BILAT 01/04/2020 AWA NIXON MD, Ot Z12. 31 ENCNTR SCREEN MAMMOGRAM FOR MALIGNANT NE 01/04/2020 AWA NIXON MD, Ot Z12. 31 ENCNTR SCREEN MAMMOGRAM FOR MALIGNANT NE 01/04/2020 AWA NIXON MD, Ot Z12. 31 ENCNTR SCREEN MAMMOGRAM FOR MALIGNANT NE 01/07/2020 AWA NIXON MD, Ot Z12. 31 ENCNTR SCREEN MAMMOGRAM FOR MALIGNANT NE 01/10/2020 LUIS TOBIN MD Ot E83.42 HYPOMAGNESEMIA 01/10/2020 LUIS TOBIN MD Ot G40.909 EPILEPSY, UNSP, NOT INTRACTABLE, WITHOUT 01/10/2020 LUIS TOBIN MD Ot I10 ESSENTIAL (PRIMARY) HYPERTENSION 01/10/2020 LUIS TOBIN MD Ot N39.0 URINARY TRACT INFECTION, SITE NOT SPECIF 01/10/2020 LUIS TOBIN MD Ot R53.1 WEAKNESS 01/10/2020 LUIS TOBIN MD Ot Z80.0 FAMILY HISTORY OF MALIGNANT NEOPLASM OF 01/10/2020 CRISTA PAEZ, LUIS Kim Ot Z82.49 FAMILY HX OF ISCHEM HEART DIS AND OTH DI 01/10/2020 LUIS TOBIN MD, Ot Z85.05 PERSONAL HISTORY OF MALIGNANT NEOPLASM O 01/10/2020 CRISTA PAEZ, LUIS Kim Ot Z96.653 PRESENCE OF ARTIFICIAL KNEE JOINT, BILAT 01/14/2020 AWA NIXON MD Ot D64. 9 ANEMIA, UNSPECIFIED 01/14/2020 AWA NIXON MD, Ot E78. 00 PURE HYPERCHOLESTEROLEMIA, UNSPECIFIED 01/14/2020 AWA NIXON MD, Ot F32. 9 MAJOR DEPRESSIVE DISORDER, SINGLE EPISOD 01/14/2020 AWA NIXON MD, Ot F41. 9 ANXIETY DISORDER, UNSPECIFIED 01/14/2020 AWA NIXON MD, Ot G40.909 EPILEPSY, UNSP, NOT INTRACTABLE, WITHOUT 01/14/2020 AWA NIXON MD Ot I10 ESSENTIAL (PRIMARY) HYPERTENSION 01/14/2020 AWA NIXON MD, Ot M10. 9 GOUT, UNSPECIFIED 01/14/2020 AWA NIXON MD, Ot M19. 91 PRIMARY OSTEOARTHRITIS, UNSPECIFIED SITE 01/14/2020 AWA NIXON MD, Ot R00. 0 TACHYCARDIA, UNSPECIFIED 01/14/2020 AWA NIXON MD, Ot R53. 83 OTHER FATIGUE 01/14/2020 AWA NIXON MD, Ot T42.4X5A ADVERSE EFFECT OF BENZODIAZEPINES, INITI 01/14/2020 AWA NIXON MD Ot Z66 DO NOT RESUSCITATE 01/14/2020 AWA NIXON MD, Ot Z96.653 PRESENCE OF ARTIFICIAL KNEE JOINT, BILAT 01/14/2020 AWA NIXON MD, Ot D64. 9 ANEMIA, UNSPECIFIED 01/14/2020 AWA NIXON MD, Ot E78. 00 PURE HYPERCHOLESTEROLEMIA, UNSPECIFIED 01/14/2020 AWA NIXON MD, Ot F32. 9 MAJOR DEPRESSIVE DISORDER, SINGLE EPISOD 01/14/2020 HUSSAIN PAEZ, AWA [place] Ot F41. 9 ANXIETY DISORDER, UNSPECIFIED 01/14/2020 AWA NIXON MD, Ot G40.909 EPILEPSY, UNSP, NOT INTRACTABLE, WITHOUT 01/14/2020 AWA NIXON MD, Ot I10 ESSENTIAL (PRIMARY) HYPERTENSION 01/14/2020 AWA NIXON MD, Ot M10. 9 GOUT, UNSPECIFIED 01/14/2020 AWA NIXON MD, Ot M19. 91 PRIMARY OSTEOARTHRITIS, UNSPECIFIED SITE 01/14/2020 AWA NIXON MD Ot R00. 0 TACHYCARDIA, UNSPECIFIED 01/14/2020 AWA NIXON MD, Ot R53. 83 OTHER FATIGUE 01/14/2020 AWA NIXON MD, Ot T42.4X5A ADVERSE EFFECT OF BENZODIAZEPINES, INITI 01/14/2020 AWA NIXON MD, Ot Z66 DO NOT RESUSCITATE 01/14/2020 AWA NIXON MD Ot Z96.653 PRESENCE OF ARTIFICIAL KNEE JOINT, BILAT 01/14/2020 AWA NIXON MD Ot D64. 9 ANEMIA, UNSPECIFIED 01/14/2020 AWA NIXON MD Ot E78. 00 PURE HYPERCHOLESTEROLEMIA, UNSPECIFIED 01/14/2020 AWA NIXON MD, Ot F32. 9 MAJOR DEPRESSIVE DISORDER, SINGLE EPISOD 01/14/2020 AWA NIXON MD, Ot F41. 9 ANXIETY DISORDER, UNSPECIFIED 01/14/2020 AWA NIXON MD, Ot G40.909 EPILEPSY, UNSP, NOT INTRACTABLE, WITHOUT 01/14/2020 AWA NIXON MD, Ot I10 ESSENTIAL (PRIMARY) HYPERTENSION 01/14/2020 AWA NIXON MD, Ot M10. 9 GOUT, UNSPECIFIED 01/14/2020 AWA NIXON MD, Ot M19. 91 PRIMARY OSTEOARTHRITIS, UNSPECIFIED SITE 01/14/2020 AWA NIXON MD, Ot R00. 0 TACHYCARDIA, UNSPECIFIED 01/14/2020 AWA NIXON MD, Ot R53. 83 OTHER FATIGUE 01/14/2020 AWA NIXON MD, Ot T42.4X5A ADVERSE EFFECT OF BENZODIAZEPINES, INITI 01/14/2020 AWA NIXON MD Ot Z66 DO NOT RESUSCITATE 01/14/2020 AWA NIXON MD Ot Z96.653 PRESENCE OF ARTIFICIAL KNEE JOINT, BILAT 01/14/2020 HUSSAIN PAEZ, AWA [place] Ot D64. 9 ANEMIA, UNSPECIFIED 01/14/2020 AWA NIXON MD Ot E78. 00 PURE HYPERCHOLESTEROLEMIA, UNSPECIFIED 01/14/2020 HUSSAIN PAEZ, AWA [place] Ot F32. 9 MAJOR DEPRESSIVE DISORDER, SINGLE EPISOD 01/14/2020 HUSSAIN PAEZ, AWA [place] Ot F41. 9 ANXIETY DISORDER, UNSPECIFIED 01/14/2020 AWA NIXON MD Ot G40.909 EPILEPSY, UNSP, NOT INTRACTABLE, WITHOUT 01/14/2020 AWA NIXON MD Ot I10 ESSENTIAL (PRIMARY) HYPERTENSION 01/14/2020 AWA NIXON MD, Ot M10. 9 GOUT, UNSPECIFIED 01/14/2020 AWA NIXON MD, Ot M19. 91 PRIMARY OSTEOARTHRITIS, UNSPECIFIED SITE 01/14/2020 AWA NIXON MD Ot R00. 0 TACHYCARDIA, UNSPECIFIED 01/14/2020 AWA NIXON MD Ot R53. 83 OTHER FATIGUE 01/14/2020 AWA NIXON MD, Ot T42.4X5A ADVERSE EFFECT OF BENZODIAZEPINES, INITI 01/14/2020 AWA NIXON MD Ot Z66 DO NOT RESUSCITATE 01/14/2020 AWA NIXON MD, Ot Z96.653 PRESENCE OF ARTIFICIAL KNEE JOINT, BILAT 01/14/2020 AWA NIXON MD Ot D64. 9 ANEMIA, UNSPECIFIED 01/14/2020 AWA NIXON MD Ot E78. 00 PURE HYPERCHOLESTEROLEMIA, UNSPECIFIED 01/14/2020 AWA NIXON MD, Ot F32. 9 MAJOR DEPRESSIVE DISORDER, SINGLE EPISOD 01/14/2020 HUSSAIN PAEZ, AWA [place] Ot F41. 9 ANXIETY DISORDER, UNSPECIFIED 01/14/2020 AWA NIXON MD, Ot G40.909 EPILEPSY, UNSP, NOT INTRACTABLE, WITHOUT 01/14/2020 AWA NIXON MD Ot I10 ESSENTIAL (PRIMARY) HYPERTENSION 01/14/2020 AWA NIXON MD Ot M10. 9 GOUT, UNSPECIFIED 01/14/2020 AWA NIXON MD Ot M19. 91 PRIMARY OSTEOARTHRITIS, UNSPECIFIED SITE 01/14/2020 AWA NIXON MD, Ot R00. 0 TACHYCARDIA, UNSPECIFIED 01/14/2020 AWA NIXON MD Ot R53. 83 OTHER FATIGUE 01/14/2020 AWA NIXON MD, Ot T42.4X5A ADVERSE EFFECT OF BENZODIAZEPINES, INITI 01/14/2020 AWA NIXON MD Ot Z66 DO NOT RESUSCITATE 01/14/2020 AWA NIXON MD, Ot Z96.653 PRESENCE OF ARTIFICIAL KNEE JOINT, BILAT Procedures Code Description Performed By Per formed On G0008 FLU ADMINISTRATION (MEDICARE ONLY) 09/04/2013 72203 ROUT INE VENIPUNCTURE 12/08/2014 97823 THER APUTIC INJ SQ/IM 12/08/2014 [id number] ROCE PHIN INJ 1 g 12/08/2014 88921 XRAY FOOT RIGHT 2 VIEWS 12/08/2014 37316 CBC 12/08/2014 43365 CMP 12/08/2014 16491 URIC ACID 12/08/[id number] GF R CALC (RESULT ONLY) 12/08/2014 Results Test Result Range Complete blood count (CBC) with automate d white blood cell (WBC) differential - 05/04/17 20:16 Blood leukocytes automated count (number/volume) 9.0 10*3/uL 4.3-11.0 Blood erythrocytes automated count (number/volume) 3.52 10*6/uL 4.35-5.85 Venous blood hemoglobin measurement (mass/volume) 9.8 g/dL 11.5-16.0 Blood hematocrit (volume fraction) 32 % 35-52 Automated erythrocyte mean corpuscular volume 90 [ foz_us] 80-99 Automated erythrocyte mean corpuscular h emoglobin (mass per erythrocyte) 28 pg 25-34 Automated erythrocyte mean corpuscular h emoglobin concentration measurement (mass/volume) 31 g/dL 32-36 Automated erythrocyte distribution width ratio 17. 2 % 10.0- 14.5 Automated blood platelet count [...] 10*3 1.0-4.0 Blood monocytes automated count (number/volume) 0. 4 10*3 0.0-1.0 Automated eosinophil count 0.0 10*3/uL 0 .0-0.3 Automated blood basophil count (count/volume) 0.0 10*3/uL 0.0-0.1 Blood lactic acid measurement (moles/vol ume) - 05/04/17 20:16 Blood lactic acid measurement (moles/volume) 1.56 mmol/L 0.50-2.00 Blood manual differential performed dete ction - 05/04/17 20:16 Blood monocytes/100 leukocytes 4 % NRG Manual blood segmented neutrophils/100 leukocytes 76 % NRG Blood band neutrophils/100 leukocytes 10 % NRG Manual blood lymphocytes/100 leukocytes 10 % NRG Manual eosinophils/100 leukocytes in nose 0 % NRG Manual blood basophils/100 leukocytes 0 % NRG Blood erythrocyte morphology finding identification NORMAL NRG Comprehensive metabolic panel - 05/04/17 20:16 Serum or plasma sodium measurement (moles/volume) 136 mmol/L 135-145 Serum or plasma potassium measurement (moles/volume) 3.5 mmol/L 3.6-5.0 Serum or plasma chloride measurement (moles/volume) 106 mmol/L 98-107 Carbon dioxide 21 mmol/L 21-32 Serum or plasma anion gap determination (moles/volume) 9 mmol/L 5-14 Serum or plasma urea nitrogen measurement (mass/volume ) 13 mg/dL 7-18 Serum or plasma creatinine measurement (mass/volume) 0.85 mg/dL 0.60-1.30 Serum or plasma urea nitrogen/creatinine mass ratio 15 0-20 Serum or plasma creatinine measurement w ith calculation of estimated glomerular filtration rate > NRG Serum or plasma glucose measurement (mass/volume) 138 mg/dL 70-105 Serum or plasma calcium measurement (mass/volume) 9.5 mg/dL 8.5-10.1 Serum or plasma total bilirubin measurement (mass/volu me) 0.6 mg/dL 0.1-1.0 Serum or plasma alkaline phosphatase kaitlynn surement (enzymatic activity/volume) 62 U/L 40-136 Serum or plasma aspartate aminotransfera se measurement (enzymatic activity/volume) 17 U/L 5-34 Serum or plasma alanine aminotransferase measurement (enzymatic activity/volume) 9 U/L 0-55 Serum or plasma protein measurement (mass/volume) 5.7 g/dL 6.4-8.2 Serum or plasma albumin measurement (mass/volume) 3.1 g/dL 3.2-4.5 Serum or plasma troponin i.cardiac measu rement (mass/volume) - 05/04/17 20:16 Serum or plasma troponin i.cardiac measurement (mass/v olume) < ng/mL <0.30 Serum or plasma lithium measurement (mol es/volume) - 05/04/17 20:16 BNP level 65.6 pg/mL <100.0 Bacterial blood culture - 05/04/17 20:16 Bacterial blood culture NG NRG Bacterial blood culture - 05/04/17 20:45 Bacterial blood culture NG NRG Complete urinalysis with reflex to cultu re - 05/05/17 00:50 Urine color determination YELLOW NRG Urine clarity determination SLIGHTLY CLOUDY NRG Urine pH measurement by test strip 6 5-9 Specific gravity of urine by test strip 1.015 1.016-1.022 Urine protein assay by test strip, semi-quantitative 2+ NEGATIVE Urine glucose detection by automated test strip NE GATIVE NEGATIVE Erythrocytes detection in urine sediment by light micr oscopy 3+ NEGATIVE Urine ketones detection by automated test strip NE GATIVE NEGATIVE Urine nitrite detection by test strip NEGATIVE NEGATIVE Urine total bilirubin detection by test strip NEGA TIVE NEGATIVE Urine urobilinogen measurement by automated test strip (mass/volume) NORMAL NORMAL Urine leukocyte esterase detection by dipstick 3+ NEGATIVE Automated urine sediment erythrocyte cou nt by microscopy (number/high power field) [HPF] NRG Automated urine sediment leukocyte count by microscopy (number/high power field) [HPF] NRG Bacteria detection in urine sediment by light microsco py FEW NRG Squamous epithelial cells detection in u rine sediment by light microscopy TNTC NRG Crystals detection in urine sediment by light microsco py NONE NRG Casts detection in urine sediment by light microscopy NONE NRG Mucus detection in urine sediment by light microscopy LARGE NRG Complete urinalysis with reflex to culture NO NRG C DIFFICILE AG + TOXIN A/B. - 05/05/17 0 2:45 CALL POSITIVES (F1 HELP) CALLED TO RERE/Jessica FOY AT 0926, 6 NRG SPECIAL CONTACT SPECIAL CONTACT PRECAUTIONS NEEDED NRG RESULTS POSITIVE FOR ANTIGEN AND TOXIN A/B NRG Complete blood count (CBC) with automate d white blood cell (WBC) differential - 05/05/17 04:33 Blood leukocytes automated count (number/volume) 5.4 10*3/uL 4.3-11.0 Blood erythrocytes automated count (number/volume) 3.41 10*6/uL 4.35-5.85 Venous blood hemoglobin measurement (mass/volume) 9.5 g/dL 11.5-16.0 Blood hematocrit (volume fraction) 30 % 35-52 Automated erythrocyte mean corpuscular volume 89 [ foz_us] 80-99 Automated erythrocyte mean corpuscular h emoglobin (mass per erythrocyte) 28 pg 25-34 Automated erythrocyte mean corpuscular h emoglobin concentration measurement (mass/volume) 31 g/dL 32-36 Automated erythrocyte distribution width ratio 17. 2 % 10.0- 14.5 Automated blood platelet count [...] 10*3 1.0-4.0 Blood monocytes automated count (number/volume) 0. 7 10*3 0.0-1.0 Automated eosinophil count 0.0 10*3/uL 0 .0-0.3 Automated blood basophil count (count/volume) 0.0 10*3/uL 0.0-0.1 Comprehensive metabolic panel - 05/05/17 04:33 Serum or plasma sodium measurement (moles/volume) 137 mmol/L 135-145 Serum or plasma potassium measurement (moles/volume) 3.0 mmol/L 3.6-5.0 Serum or plasma chloride measurement (moles/volume) 107 mmol/L 98-107 Carbon dioxide 19 mmol/L 21-32 Serum or plasma anion gap determination (moles/volume) 11 mmol/L 5-14 Serum or plasma urea nitrogen measurement (mass/volume ) 17 mg/dL 7-18 Serum or plasma creatinine measurement (mass/volume) 1.41 mg/dL 0.60-1.30 Serum or plasma urea nitrogen/creatinine mass ratio 12 0-20 Serum or plasma creatinine measurement w ith calculation of estimated glomerular filtration rate 36 NRG Serum or plasma glucose measurement (mass/volume) 110 mg/dL 70-105 Serum or plasma calcium measurement (mass/volume) 9.6 mg/dL 8.5-10.1 Serum or plasma total bilirubin measurement (mass/volu me) 0.7 mg/dL 0.1-1.0 Serum or plasma alkaline phosphatase kaitlynn surement (enzymatic activity/volume) 55 U/L 40-136 Serum or plasma aspartate aminotransfera se measurement (enzymatic activity/volume) 22 U/L 5-34 Serum or plasma alanine aminotransferase measurement (enzymatic activity/volume) 9 U/L 0-55 Serum or plasma protein measurement (mass/volume) 5.3 g/dL 6.4-8.2 Serum or plasma albumin measurement (mass/volume) 2.7 g/dL 3.2-4.5 Automated blood complete blood count ( mogram) panel - 05/06/17 04:27 Blood leukocytes automated count (number/volume) 15.8 10*3/uL 4.3-11.0 Blood erythrocytes automated count (number/volume) 3.26 10*6/uL 4.35-5.85 Venous blood hemoglobin measurement (mass/volume) 9.0 g/dL 11.5-16.0 Blood hematocrit (volume fraction) 29 % 35-52 Automated erythrocyte mean corpuscular volume 89 [ foz_us] 80-99 Automated erythrocyte mean corpuscular h emoglobin (mass per erythrocyte) 28 pg 25-34 Automated erythrocyte mean corpuscular h emoglobin concentration measurement (mass/volume) 31 g/dL 32-36 Automated erythrocyte distribution width ratio 17. 7 % 10.0- 14.5 Automated blood platelet count (count/volume) 205 10*3/uL 130-400 Automated blood platelet mean volume measurement 11.9 [foz_us] 7.4-10.4 Whole blood basic metabolic panel - 04/20 06/05 04:27 Serum or plasma sodium measurement (moles/volume) 140 mmol/L 135-145 Serum or plasma potassium measurement (moles/volume) 3.4 mmol/L 3.6-5.0 Serum or plasma chloride measurement (moles/volume) 110 mmol/L 98-107 Carbon dioxide 19 mmol/L 21-32 Serum or plasma anion gap determination (moles/volume) 11 mmol/L 5-14 Serum or plasma urea nitrogen measurement (mass/volume ) 24 mg/dL 7-18 Serum or plasma creatinine measurement (mass/volume) 1.47 mg/dL 0.60-1.30 Serum or plasma urea nitrogen/creatinine mass ratio 16 0-20 Serum or plasma creatinine measurement w ith calculation of estimated glomerular filtration rate 34 NRG Serum or plasma glucose measurement (mass/volume) 90 mg/dL 70-105 Serum or plasma calcium measurement (mass/volume) 9.7 mg/dL 8.5-10.1 Automated blood complete blood count ( mogram) panel - 05/07/17 04:17 Blood leukocytes automated count (number/volume) 16.1 10*3/uL 4.3-11.0 Blood erythrocytes automated count (number/volume) 3.07 10*6/uL 4.35-5.85 Venous blood hemoglobin measurement (mass/volume) 8.5 g/dL 11.5-16.0 Blood hematocrit (volume fraction) 28 % 35-52 Automated erythrocyte mean corpuscular volume 90 [ foz_us] 80-99 Automated erythrocyte mean corpuscular h emoglobin (mass per erythrocyte) 28 pg 25-34 Automated erythrocyte mean corpuscular h emoglobin concentration measurement (mass/volume) 31 g/dL 32-36 Automated erythrocyte distribution width ratio 17. 3 % 10.0- 14.5 Automated blood platelet count (count/volume) 194 10*3/uL 130-400 Automated blood platelet mean volume measurement 12.1 [foz_us] 7.4-10.4 Whole blood basic metabolic panel - 04/20 07/06 04:17 Serum or plasma sodium measurement (moles/volume) 141 mmol/L 135-145 Serum or plasma potassium measurement (moles/volume) 3.8 mmol/L 3.6-5.0 Serum or plasma chloride measurement (moles/volume) 116 mmol/L 98-107 Carbon dioxide 18 mmol/L 21-32 Serum or plasma anion gap determination (moles/volume) 7 mmol/L 5-14 Serum or plasma urea nitrogen measurement (mass/volume ) 15 mg/dL 7-18 Serum or plasma creatinine measurement (mass/volume) 0.82 mg/dL 0.60-1.30 Serum or plasma urea nitrogen/creatinine mass ratio 18 0-20 Serum or plasma creatinine measurement w ith calculation of estimated glomerular filtration rate > NRG Serum or plasma glucose measurement (mass/volume) 84 mg/dL 70-105 Serum or plasma calcium measurement (mass/volume) 9.3 mg/dL 8.5-10.1 Automated blood complete blood count (he mogram) panel - 05/08/17 06:45 Blood leukocytes automated count (number/volume) 8.5 10*3/uL 4.3-11.0 Blood erythrocytes automated count (number/volume) 3.04 10*6/uL 4.35-5.85 Venous blood hemoglobin measurement (mass/volume) 8.3 g/dL 11.5-16.0 Blood hematocrit (volume fraction) 27 % 35-52 Automated erythrocyte mean corpuscular volume 90 [ foz_us] 80-99 Automated erythrocyte mean corpuscular h emoglobin (mass per erythrocyte) 27 pg 25-34 Automated erythrocyte mean corpuscular h emoglobin concentration measurement (mass/volume) 30 g/dL 32-36 Automated erythrocyte distribution width ratio 17. 3 % 10.0- 14.5 Automated blood platelet count (count/volume) 156 10*3/uL 130-400 Automated blood platelet mean volume measurement 11.2 [foz_us] 7.4-10.4 Whole blood basic metabolic panel - 04/20 08/06 06:45 Serum or plasma sodium measurement (moles/volume) 140 mmol/L 135-145 Serum or plasma potassium measurement (moles/volume) 3.7 mmol/L 3.6-5.0 Serum or plasma chloride measurement (moles/volume) 114 mmol/L 98-107 Carbon dioxide 21 mmol/L 21-32 Serum or plasma anion gap determination (moles/volume) 5 mmol/L 5-14 Serum or plasma urea nitrogen measurement (mass/volume ) 9 mg/dL 7-18 Serum or plasma creatinine measurement (mass/volume) 0.73 mg/dL 0.60-1.30 Serum or plasma urea nitrogen/creatinine mass ratio 12 0-20 Serum or plasma creatinine measurement w ith calculation of estimated glomerular filtration rate > NRG Serum or plasma glucose measurement (mass/volume) 89 mg/dL 70-105 Serum or plasma calcium measurement (mass/volume) 9.1 mg/dL 8.5-10.1 Automated blood complete blood count (he mogram) panel - 05/09/17 06:26 Blood leukocytes automated count (number/volume) 7.1 10*3/uL 4.3-11.0 Blood erythrocytes automated count (number/volume) 3.11 10*6/uL 4.35-5.85 Venous blood hemoglobin measurement (mass/volume) 8.5 g/dL 11.5-16.0 Blood hematocrit (volume fraction) 28 % 35-52 Automated erythrocyte mean corpuscular volume 89 [ foz_us] 80-99 Automated erythrocyte mean corpuscular h emoglobin (mass per erythrocyte) 27 pg 25-34 Automated erythrocyte mean corpuscular h emoglobin concentration measurement (mass/volume) 31 g/dL 32-36 Automated erythrocyte distribution width ratio 17. 3 % 10.0- 14.5 Automated blood platelet count (count/volume) 155 10*3/uL 130-400 Automated blood platelet mean volume measurement 11.7 [foz_us] 7.4-10.4 Whole blood basic metabolic panel - 04/21 06:26 Serum or plasma sodium measurement (moles/volume) 142 mmol/L 135-145 Serum or plasma potassium measurement (moles/volume) 3.7 mmol/L 3.6-5.0 Serum or plasma chloride measurement (moles/volume) 114 mmol/L 98-107 Carbon dioxide 22 mmol/L 21-32 Serum or plasma anion gap determination (moles/volume) 6 mmol/L 5-14 Serum or plasma urea nitrogen measurement (mass/volume ) 7 mg/dL 7-18 Serum or plasma creatinine measurement (mass/volume) 0.69 mg/dL 0.60-1.30 Serum or plasma urea nitrogen/creatinine mass ratio 10 0-20 Serum or plasma creatinine measurement w ith calculation of estimated glomerular filtration rate > NRG Serum or plasma glucose measurement (mass/volume) 92 mg/dL 70-105 Serum or plasma calcium measurement (mass/volume) 9.3 mg/dL 8.5-10.1 Complete blood count (CBC) with automate d white blood cell (WBC) differential - 02/17/18 12:15 Blood leukocytes automated count (number/volume) 10.0 10*3/uL 4.3-11.0 Blood erythrocytes automated count (number/volume) 4.22 10*6/uL 4.35-5.85 Venous blood hemoglobin measurement (mass/volume) 13.1 g/dL 11.5-16.0 Blood hematocrit (volume fraction) 39 % 35-52 Automated erythrocyte mean corpuscular volume 93 [ foz_us] 80-99 Automated erythrocyte mean corpuscular h emoglobin (mass per erythrocyte) 31 pg 25-34 Automated erythrocyte mean corpuscular h emoglobin concentration measurement (mass/volume) 34 g/dL 32-36 Automated erythrocyte distribution width ratio 16. 7 % 10.0- 14.5 Automated blood platelet count [...] 10*3 1.0-4.0 Blood monocytes automated count (number/volume) 0. 6 10*3 0.0-1.0 Automated eosinophil count 0.0 10*3/uL 0 .0-0.3 Automated blood basophil count (count/volume) 0.0 10*3/uL 0.0-0.1 Comprehensive metabolic panel - 02/17/18 12:15 Serum or plasma sodium measurement (moles/volume) 137 mmol/L 135-145 Serum or plasma potassium measurement (moles/volume) 3.5 mmol/L 3.6-5.0 Serum or plasma chloride measurement (moles/volume) 102 mmol/L 98-107 Carbon dioxide 27 mmol/L 21-32 Serum or plasma anion gap determination (moles/volume) 8 mmol/L 5-14 Serum or plasma urea nitrogen measurement (mass/volume ) 16 mg/dL 7-18 Serum or plasma creatinine measurement (mass/volume) 0.83 mg/dL 0.60-1.30 Serum or plasma urea nitrogen/creatinine mass ratio 19 NRG Serum or plasma creatinine measurement w ith calculation of estimated glomerular filtration rate > NRG Serum or plasma glucose measurement (mass/volume) 123 mg/dL 70-105 Serum or plasma calcium measurement (mass/volume) 11.1 mg/dL 8.5-10.1 Serum or plasma total bilirubin measurement (mass/volu me) 1.2 mg/dL 0.1-1.0 Serum or plasma alkaline phosphatase kaitlynn surement (enzymatic activity/volume) 93 U/L 40-136 Serum or plasma aspartate aminotransfera se measurement (enzymatic activity/volume) 128 U/L 5-34 Serum or plasma alanine aminotransferase measurement (enzymatic activity/volume) 64 U/L 0-55 Serum or plasma protein measurement (mass/volume) 6.3 g/dL 6.4-8.2 Serum or plasma albumin measurement (mass/volume) 3.8 g/dL 3.2-4.5 Blood manual differential performed dete ction - 02/17/18 12:15 Blood monocytes/100 leukocytes 10 % NRG Manual blood segmented neutrophils/100 leukocytes 87 % NRG Manual blood lymphocytes/100 leukocytes 3 % NRG Blood erythrocyte morphology finding identification NORMAL NRG Serum or plasma creatine kinase measurem ent (enzymatic activity/volume) - 02/17/18 12:15 Serum or plasma creatine kinase measurem ent (enzymatic activity/volume) 1416 U/L 29-168 Complete urinalysis with reflex to cultu re - 02/17/18 17:33 Urine color determination YELLOW NRG Urine clarity determination CLEAR NR G Urine pH measurement by test strip 8 5-9 Specific gravity of urine by test strip 1.010 1.016-1.022 Urine protein assay by test strip, semi-quantitative NEGATIVE NEGATIVE Urine glucose detection by automated test strip NE GATIVE NEGATIVE Erythrocytes detection in urine sediment by light micr oscopy 1+ NEGATIVE Urine ketones detection by automated test strip NE GATIVE NEGATIVE Urine nitrite detection by test strip NEGATIVE NEGATIVE Urine total bilirubin detection by test strip NEGA TIVE NEGATIVE Urine urobilinogen measurement by automated test strip (mass/volume) NORMAL NORMAL Urine leukocyte esterase detection by dipstick 1+ NEGATIVE Automated urine sediment erythrocyte cou nt by microscopy (number/high power field) NONE NRG Automated urine sediment leukocyte count by microscopy (number/high power field) NONE NRG Bacteria detection in urine sediment by light microsco py TRACE NRG Squamous epithelial cells detection in u rine sediment by light microscopy 10-25 NRG Crystals detection in urine sediment by light microsco py NONE NRG Casts detection in urine sediment by light microscopy NONE NRG Mucus detection in urine sediment by light microscopy NEGATIVE NRG Complete urinalysis with reflex to culture NO NRG Amorphous sediment detection in urine sediment by ligh t microscopy MOD LATONYA PHOSPHATE NRG Complete blood count (CBC) with automate d white blood cell (WBC) differential - 02/18/18 05:30 Blood leukocytes automated count (number/volume) 6.8 10*3/uL 4.3-11.0 Blood erythrocytes automated count (number/volume) 3.32 10*6/uL 4.35-5.85 Venous blood hemoglobin measurement (mass/volume) 10.2 g/dL 11.5-16.0 Blood hematocrit (volume fraction) 31 % 35-52 Automated erythrocyte mean corpuscular volume 93 [ foz_us] 80-99 Automated erythrocyte mean corpuscular h emoglobin (mass per erythrocyte) 31 pg 25-34 Automated erythrocyte mean corpuscular h emoglobin concentration measurement (mass/volume) 33 g/dL 32-36 Automated erythrocyte distribution width ratio 16. 7 % 10.0- 14.5 Automated blood platelet count [...] 10*3 1.0-4.0 Blood monocytes automated count (number/volume) 0. 7 10*3 0.0-1.0 Automated eosinophil count 0.0 10*3/uL 0 .0-0.3 Automated blood basophil count (count/volume) 0.0 10*3/uL 0.0-0.1 Comprehensive metabolic panel - 02/18/18 05:30 Serum or plasma sodium measurement (moles/volume) 138 mmol/L 135-145 Serum or plasma potassium measurement (moles/volume) 2.9 mmol/L 3.6-5.0 Serum or plasma chloride measurement (moles/volume) 108 mmol/L 98-107 Carbon dioxide 22 mmol/L 21-32 Serum or plasma anion gap determination (moles/volume) 8 mmol/L 5-14 Serum or plasma urea nitrogen measurement (mass/volume ) 11 mg/dL 7-18 Serum or plasma creatinine measurement (mass/volume) 0.71 mg/dL 0.60-1.30 Serum or plasma urea nitrogen/creatinine mass ratio 15 NRG Serum or plasma creatinine measurement w ith calculation of estimated glomerular filtration rate > NRG Serum or plasma glucose measurement (mass/volume) 94 mg/dL 70-105 Serum or plasma calcium measurement (mass/volume) 9.8 mg/dL 8.5-10.1 Serum or plasma total bilirubin measurement (mass/volu me) 1.2 mg/dL 0.1-1.0 Serum or plasma alkaline phosphatase kaitlynn surement (enzymatic activity/volume) 70 U/L 40-136 Serum or plasma aspartate aminotransfera se measurement (enzymatic activity/volume) 111 U/L 5-34 Serum or plasma alanine aminotransferase measurement (enzymatic activity/volume) 49 U/L 0-55 Serum or plasma protein measurement (mass/volume) 5.1 g/dL 6.4-8.2 Serum or plasma albumin measurement (mass/volume) 2.9 g/dL 3.2-4.5 Serum or plasma creatine kinase measurem ent (enzymatic activity/volume) - 02/18/18 05:30 Serum or plasma creatine kinase measurem ent (enzymatic activity/volume) 953 U/L 29-168 Whole blood basic metabolic panel - 01/07 05:50 Serum or plasma sodium measurement (moles/volume) 139 mmol/L 135-145 Serum or plasma potassium measurement (moles/volume) 3.2 mmol/L 3.6-5.0 Serum or plasma chloride measurement (moles/volume) 110 mmol/L 98-107 Carbon dioxide 25 mmol/L 21-32 Serum or plasma anion gap determination (moles/volume) 4 mmol/L 5-14 Serum or plasma urea nitrogen measurement (mass/volume ) 7 mg/dL 7-18 Serum or plasma creatinine measurement (mass/volume) 0.65 mg/dL 0.60-1.30 Serum or plasma urea nitrogen/creatinine mass ratio 11 NRG Serum or plasma creatinine measurement w ith calculation of estimated glomerular filtration rate > NRG Serum or plasma glucose measurement (mass/volume) 104 mg/dL 70-105 Serum or plasma calcium measurement (mass/volume) 9.6 mg/dL 8.5-10.1 Serum or plasma creatine kinase measurem ent (enzymatic activity/volume) - 02/19/18 05:50 Serum or plasma creatine kinase measurem ent (enzymatic activity/volume) 350 U/L 29-168 Whole blood basic metabolic panel - 02/04 05:28 Serum or plasma sodium measurement (moles/volume) 141 mmol/L 135-145 Serum or plasma potassium measurement (moles/volume) 3.5 mmol/L 3.6-5.0 Serum or plasma chloride measurement (moles/volume) 112 mmol/L 98-107 Carbon dioxide 20 mmol/L 21-32 Serum or plasma anion gap determination (moles/volume) 9 mmol/L 5-14 Serum or plasma urea nitrogen measurement (mass/volume ) 6 mg/dL 7-18 Serum or plasma creatinine measurement (mass/volume) 0.63 mg/dL 0.60-1.30 Serum or plasma urea nitrogen/creatinine mass ratio 10 NRG Serum or plasma creatinine measurement w ith calculation of estimated glomerular filtration rate > NRG Serum or plasma glucose measurement (mass/volume) 86 mg/dL 70-105 Serum or plasma calcium measurement (mass/volume) 9.3 mg/dL 8.5-10.1 Serum or plasma phosphate measurement (m ass/volume) - 02/20/18 05:28 Serum or plasma phosphate measurement (mass/volume) 1.3 mg/dL 2.3-4.7 Serum or plasma creatine kinase measurem ent (enzymatic activity/volume) - 02/20/18 05:28 Serum or plasma creatine kinase measurem ent (enzymatic activity/volume) 174 U/L 29-168 Ammonia - 02/20/18 05:28 Ammonia 26 umol/L 11-32 Complete blood count (CBC) with automate d white blood cell (WBC) differential - 07/22/18 22:25 Blood leukocytes automated count (number/volume) 4.7 10*3/uL 4.3-11.0 Blood erythrocytes automated count (number/volume) 3.80 10*6/uL 4.35-5.85 Venous blood hemoglobin measurement (mass/volume) 12.4 g/dL 11.5-16.0 Blood hematocrit (volume fraction) 36 % 35-52 Automated erythrocyte mean corpuscular volume 96 [ foz_us] 80-99 Automated erythrocyte mean corpuscular h emoglobin (mass per erythrocyte) 33 pg 25-34 Automated erythrocyte mean corpuscular h emoglobin concentration measurement (mass/volume) 34 g/dL 32-36 Automated erythrocyte distribution width ratio 15. 3 % 10.0- 14.5 Automated blood platelet count [...] 10*3 1.0-4.0 Blood monocytes automated count (number/volume) 0. 5 10*3 0.0-1.0 Automated eosinophil count 0.1 10*3/uL 0 .0-0.3 Automated blood basophil count (count/volume) 0.0 10*3/uL 0.0-0.1 PT panel in platelet poor plasma by coag ulation assay - 07/22/18 22:25 Prothrombin time (PT) in platelet poor plasma by coagu lation assay 13.9 s 12.2-14.7 INR in platelet poor plasma or blood by coagulation as say 1.1 0.8-1.4 Activated partial thromboplastin time (a PTT) in platelet poor plasma bycoagulation assay - 07/22/18 22:25 Activated partial thromboplastin time (a PTT) in platelet poor plasma bycoagulation assay 30 s 24-35 Comprehensive metabolic panel - 07/22/18 22:25 Serum or plasma sodium measurement (moles/volume) 140 mmol/L 135-145 Serum or plasma potassium measurement (moles/volume) 3.7 mmol/L 3.6-5.0 Serum or plasma chloride measurement (moles/volume) 105 mmol/L 98-107 Carbon dioxide 22 mmol/L 21-32 Serum or plasma anion gap determination (moles/volume) 13 mmol/L 5-14 Serum or plasma urea nitrogen measurement (mass/volume ) 21 mg/dL 7-18 Serum or plasma creatinine measurement (mass/volume) 0.91 mg/dL 0.60-1.30 Serum or plasma urea nitrogen/creatinine mass ratio 23 NRG Serum or plasma creatinine measurement w ith calculation of estimated glomerular filtration rate 59 NRG Serum or plasma glucose measurement (mass/volume) 130 mg/dL 70-105 Serum or plasma calcium measurement (mass/volume) 11.7 mg/dL 8.5-10.1 Serum or plasma total bilirubin measurement (mass/volu me) 0.3 mg/dL 0.1-1.0 Serum or plasma alkaline phosphatase kaitlynn surement (enzymatic activity/volume) 69 U/L 40-136 Serum or plasma aspartate aminotransfera se measurement (enzymatic activity/volume) 30 U/L 5-34 Serum or plasma alanine aminotransferase measurement (enzymatic activity/volume) 19 U/L 0-55 Serum or plasma protein measurement (mass/volume) 6.6 g/dL 6.4-8.2 Serum or plasma albumin measurement (mass/volume) 3.8 g/dL 3.2-4.5 CALCIUM CORRECTED 11.9 mg/dL 8.5-10.1 Magnesium - 07/22/18 22:25 Magnesium 2.1 mg/dL 1.8-2.4 Serum or plasma troponin i.cardiac measu rement (mass/volume) - 07/22/18 22:25 Serum or plasma troponin i.cardiac measurement (mass/v olume) < ng/mL <0.30 Complete urinalysis with reflex to cultu re - 07/23/18 00:10 Urine color determination YELLOW NRG Urine clarity determination SLIGHTLY CLOUDY NRG Urine pH measurement by test strip 7 5-9 Specific gravity of urine by test strip 1.010 1.016-1.022 Urine protein assay by test strip, semi-quantitative NEGATIVE NEGATIVE Urine glucose detection by automated test strip NE GATIVE NEGATIVE Erythrocytes detection in urine sediment by light micr oscopy NEGATIVE NEGATIVE Urine ketones detection by automated test strip NE GATIVE NEGATIVE Urine nitrite detection by test strip NEGATIVE NEGATIVE Urine total bilirubin detection by test strip NEGA TIVE NEGATIVE Urine urobilinogen measurement by automated test strip (mass/volume) NORMAL NORMAL Urine leukocyte esterase detection by dipstick 3+ NEGATIVE Automated urine sediment erythrocyte cou nt by microscopy (number/high power field) NONE NRG Automated urine sediment leukocyte count by microscopy (number/high power field) [HPF] NRG Bacteria detection in urine sediment by light microsco py FEW NRG Squamous epithelial cells detection in u rine sediment by light microscopy 5-10 NRG Crystals detection in urine sediment by light microsco py PRESENT NRG Casts detection in urine sediment by light microscopy NONE NRG Mucus detection in urine sediment by light microscopy NEGATIVE NRG Complete urinalysis with reflex to culture YES NRG Amorphous sediment detection in urine sediment by ligh t microscopy FEW LATONYA PHOSPHATE NRG Bacterial urine culture - 07/23/18 00:10 Bacterial urine culture SEE COMMEN NRG COLONY COUNT . NRG Complete blood count (CBC) with automate d white blood cell (WBC) differential - 09/15/18 15:03 Blood leukocytes automated count (number/volume) 11.1 10*3/uL 4.3-11.0 Blood erythrocytes automated count (number/volume) 4.26 10*6/uL 4.35-5.85 Venous blood hemoglobin measurement (mass/volume) 13.4 g/dL 11.5-16.0 Blood hematocrit (volume fraction) 41 % 35-52 Automated erythrocyte mean corpuscular volume 97 [ foz_us] 80-99 Automated erythrocyte mean corpuscular h emoglobin (mass per erythrocyte) 32 pg 25-34 Automated erythrocyte mean corpuscular h emoglobin concentration measurement (mass/volume) 33 g/dL 32-36 Automated erythrocyte distribution width ratio 15. 3 % 10.0- 14.5 Automated blood platelet count [...] 10*3 1.0-4.0 Blood monocytes automated count (number/volume) 0. 6 10*3 0.0-1.0 Automated eosinophil count 0.0 10*3/uL 0 .0-0.3 Automated blood basophil count (count/volume) 0.0 10*3/uL 0.0-0.1 Comprehensive metabolic panel - 09/15/18 15:03 Serum or plasma sodium measurement (moles/volume) 139 mmol/L 135-145 Serum or plasma potassium measurement (moles/volume) 3.8 mmol/L 3.6-5.0 Serum or plasma chloride measurement (moles/volume) 103 mmol/L 98-107 Carbon dioxide 19 mmol/L 21-32 Serum or plasma anion gap determination (moles/volume) 17 mmol/L 5-14 Serum or plasma urea nitrogen measurement (mass/volume ) 18 mg/dL 7-18 Serum or plasma creatinine measurement (mass/volume) 0.88 mg/dL 0.60-1.30 Serum or plasma urea nitrogen/creatinine mass ratio 20 NRG Serum or plasma creatinine measurement w ith calculation of estimated glomerular filtration rate > NRG Serum or plasma glucose measurement (mass/volume) 136 mg/dL 70-105 Serum or plasma calcium measurement (mass/volume) 11.5 mg/dL 8.5-10.1 Serum or plasma total bilirubin measurement (mass/volu me) 0.8 mg/dL 0.1-1.0 Serum or plasma alkaline phosphatase kaitlynn surement (enzymatic activity/volume) 72 U/L 40-136 Serum or plasma aspartate aminotransfera se measurement (enzymatic activity/volume) 45 U/L 5-34 Serum or plasma alanine aminotransferase measurement (enzymatic activity/volume) 23 U/L 0-55 Serum or plasma protein measurement (mass/volume) 7.6 g/dL 6.4-8.2 Serum or plasma albumin measurement (mass/volume) 4.2 g/dL 3.2-4.5 CALCIUM CORRECTED 11.3 mg/dL 8.5-10.1 Serum or plasma creatine kinase measurem ent (enzymatic activity/volume) - 09/15/18 15:03 Serum or plasma creatine kinase measurem ent (enzymatic activity/volume) 330 U/L 29-168 Blood manual differential performed dete ction - 09/15/18 15:03 Blood monocytes/100 leukocytes 5 % NRG Manual blood segmented neutrophils/100 leukocytes 92 % NRG Manual blood lymphocytes/100 leukocytes 3 % NRG Blood erythrocyte morphology finding identification NORMAL NRG Blood lactic acid measurement (moles/vol ume) - 09/15/18 15:03 Blood lactic acid measurement (moles/volume) 2.63 mmol/L 0.50-2.00 Serum or plasma troponin i.cardiac measu rement (mass/volume) - 09/15/18 15:03 Serum or plasma troponin i.cardiac measurement (mass/v olume) < ng/mL <0.30 Influenza virus A and B antigen detectio n - 09/15/18 15:03 FLU RESULT NEGATIVE FOR INFLUENZA A AND B ANTIGENS BY IA NRG Myoglobin, serum - 09/15/18 15:03 Myoglobin, serum 1790.1 ng/mL 10.0-92.0 Bacterial blood culture - 09/15/18 15:03 Bacterial blood culture NG NRG Bacterial blood culture - 09/15/18 15:03 Bacterial blood culture NG NRG Complete urinalysis with reflex to cultu re - 09/15/18 15:14 Urine color determination YELLOW NRG Urine clarity determination CLEAR NR G Urine pH measurement by test strip 7 5-9 Specific gravity of urine by test strip 1.015 1.016-1.022 Urine protein assay by test strip, semi-quantitative 2+ NEGATIVE Urine glucose detection by automated test strip NE GATIVE NEGATIVE Erythrocytes detection in urine sediment by light micr oscopy 2+ NEGATIVE Urine ketones detection by automated test strip NE GATIVE NEGATIVE Urine nitrite detection by test strip NEGATIVE NEGATIVE Urine total bilirubin detection by test strip NEGA TIVE NEGATIVE Urine urobilinogen measurement by automated test strip (mass/volume) NORMAL NORMAL Urine leukocyte esterase detection by dipstick 1+ NEGATIVE Automated urine sediment erythrocyte cou nt by microscopy (number/high power field) NONE NRG Automated urine sediment leukocyte count by microscopy (number/high power field) [HPF] NRG Bacteria detection in urine sediment by light microsco py NEGATIVE NRG Crystals detection in urine sediment by light microsco py PRESENT NRG Casts detection in urine sediment by light microscopy NONE NRG Mucus detection in urine sediment by light microscopy NEGATIVE NRG Complete urinalysis with reflex to culture NO NRG Amorphous sediment detection in urine sediment by ligh t microscopy LARGE LATONYA PHOSPHATE NRG Serum or plasma lactate measurement (mol es/volume) - 09/15/18 17:19 Serum or plasma lactate measurement (moles/volume) 2.02 mmol/L 0.50-2.00 Complete blood count (CBC) with automate d white blood cell (WBC) differential - 09/16/18 05:04 Blood leukocytes automated count (number/volume) 7.0 10*3/uL 4.3-11.0 Blood erythrocytes automated count (number/volume) 3.43 10*6/uL 4.35-5.85 Venous blood hemoglobin measurement (mass/volume) 10.7 g/dL 11.5-16.0 Blood hematocrit (volume fraction) 34 % 35-52 Automated erythrocyte mean corpuscular volume 98 [ foz_us] 80-99 Automated erythrocyte mean corpuscular h emoglobin (mass per erythrocyte) 31 pg 25-34 Automated erythrocyte mean corpuscular h emoglobin concentration measurement (mass/volume) 32 g/dL 32-36 Automated erythrocyte distribution width ratio 15. 5 % 10.0- 14.5 Automated blood platelet count [...] 10*3 1.0-4.0 Blood monocytes automated count (number/volume) 0. 7 10*3 0.0-1.0 Automated eosinophil count 0.0 10*3/uL 0 .0-0.3 Automated blood basophil count (count/volume) 0.0 10*3/uL 0.0-0.1 Comprehensive metabolic panel - 09/16/18 05:04 Serum or plasma sodium measurement (moles/volume) 140 mmol/L 135-145 Serum or plasma potassium measurement (moles/volume) 3.1 mmol/L 3.6-5.0 Serum or plasma chloride measurement (moles/volume) 109 mmol/L 98-107 Carbon dioxide 21 mmol/L 21-32 Serum or plasma anion gap determination (moles/volume) 10 mmol/L 5-14 Serum or plasma urea nitrogen measurement (mass/volume ) 15 mg/dL 7-18 Serum or plasma creatinine measurement (mass/volume) 0.73 mg/dL 0.60-1.30 Serum or plasma urea nitrogen/creatinine mass ratio 21 NRG Serum or plasma creatinine measurement w ith calculation of estimated glomerular filtration rate > NRG Serum or plasma glucose measurement (mass/volume) 92 mg/dL 70-105 Serum or plasma calcium measurement (mass/volume) 10.3 mg/dL 8.5-10.1 Serum or plasma total bilirubin measurement (mass/volu me) 0.7 mg/dL 0.1-1.0 Serum or plasma alkaline phosphatase kaitlynn surement (enzymatic activity/volume) 51 U/L 40-136 Serum or plasma aspartate aminotransfera se measurement (enzymatic activity/volume) 43 U/L 5-34 Serum or plasma alanine aminotransferase measurement (enzymatic activity/volume) 18 U/L 0-55 Serum or plasma protein measurement (mass/volume) 5.5 g/dL 6.4-8.2 Serum or plasma albumin measurement (mass/volume) 3.2 g/dL 3.2-4.5 CALCIUM CORRECTED 10.9 mg/dL 8.5-10.1 Complete blood count (CBC) with automate d white blood cell (WBC) differential - 09/17/18 06:16 Blood leukocytes automated count (number/volume) 4.6 10*3/uL 4.3-11.0 Blood erythrocytes automated count (number/volume) 3.43 10*6/uL 4.35-5.85 Venous blood hemoglobin measurement (mass/volume) 10.6 g/dL 11.5-16.0 Blood hematocrit (volume fraction) 34 % 35-52 Automated erythrocyte mean corpuscular volume 99 [ foz_us] 80-99 Automated erythrocyte mean corpuscular h emoglobin (mass per erythrocyte) 31 pg 25-34 Automated erythrocyte mean corpuscular h emoglobin concentration measurement (mass/volume) 31 g/dL 32-36 Automated erythrocyte distribution width ratio 15. 5 % 10.0- 14.5 Automated blood platelet count [...] 10*3 1.0-4.0 Blood monocytes automated count (number/volume) 0. 4 10*3 0.0-1.0 Automated eosinophil count 0.1 10*3/uL 0 .0-0.3 Automated blood basophil count (count/volume) 0.0 10*3/uL 0.0-0.1 Whole blood basic metabolic panel - 08/21 08/07 06:16 Serum or plasma sodium measurement (moles/volume) 141 mmol/L 135-145 Serum or plasma potassium measurement (moles/volume) 3.3 mmol/L 3.6-5.0 Serum or plasma chloride measurement (moles/volume) 111 mmol/L 98-107 Carbon dioxide 21 mmol/L 21-32 Serum or plasma anion gap determination (moles/volume) 9 mmol/L 5-14 Serum or plasma urea nitrogen measurement (mass/volume ) 15 mg/dL 7-18 Serum or plasma creatinine measurement (mass/volume) 0.68 mg/dL 0.60-1.30 Serum or plasma urea nitrogen/creatinine mass ratio 22 NRG Serum or plasma creatinine measurement w ith calculation of estimated glomerular filtration rate > NRG Serum or plasma glucose measurement (mass/volume) 94 mg/dL 70-105 Serum or plasma calcium measurement (mass/volume) 10.0 mg/dL 8.5-10.1 Complete blood count (CBC) with automate d white blood cell (WBC) differential - 04/23/19 17:42 Blood leukocytes automated count (number/volume) 7.1 10*3/uL 4.3-11.0 Blood erythrocytes automated count (number/volume) 4.03 10*6/uL 4.35-5.85 Venous blood hemoglobin measurement (mass/volume) 13.0 g/dL 11.5-16.0 Blood hematocrit (volume fraction) 40 % 35-52 Automated erythrocyte mean corpuscular volume 98 [ foz_us] 80-99 Automated erythrocyte mean corpuscular h emoglobin (mass per erythrocyte) 32 pg 25-34 Automated erythrocyte mean corpuscular h emoglobin concentration measurement (mass/volume) 33 g/dL 32-36 Automated erythrocyte distribution width ratio 15. 0 % 10.0- 14.5 Automated blood platelet count [...] 10*3 1.0-4.0 Blood monocytes automated count (number/volume) 0. 3 10*3 0.0-1.0 Automated eosinophil count 0.0 10*3/uL 0 .0-0.3 Automated blood basophil count (count/volume) 0.0 10*3/uL 0.0-0.1 Comprehensive metabolic panel - 04/23/19 17:42 Serum or plasma sodium measurement (moles/volume) 136 mmol/L 135-145 Serum or plasma potassium measurement (moles/volume) 3.6 mmol/L 3.6-5.0 Serum or plasma chloride measurement (moles/volume) 103 mmol/L 98-107 Carbon dioxide 23 mmol/L 21-32 Serum or plasma anion gap determination (moles/volume) 10 mmol/L 5-14 Serum or plasma urea nitrogen measurement (mass/volume ) 11 mg/dL 7-18 Serum or plasma creatinine measurement (mass/volume) 0.79 mg/dL 0.60-1.30 Serum or plasma urea nitrogen/creatinine mass ratio 14 NRG Serum or plasma creatinine measurement w ith calculation of estimated glomerular filtration rate > NRG Serum or plasma glucose measurement (mass/volume) 112 mg/dL 70-105 Serum or plasma calcium measurement (mass/volume) 11.1 mg/dL 8.5-10.1 Serum or plasma total bilirubin measurement (mass/volu me) 0.5 mg/dL 0.1-1.0 Serum or plasma alkaline phosphatase kaitlynn surement (enzymatic activity/volume) 60 U/L 40-136 Serum or plasma aspartate aminotransfera se measurement (enzymatic activity/volume) 37 U/L 5-34 Serum or plasma alanine aminotransferase measurement (enzymatic activity/volume) 25 U/L 0-55 Serum or plasma protein measurement (mass/volume) 6.8 g/dL 6.4-8.2 Serum or plasma albumin measurement (mass/volume) 3.9 g/dL 3.2-4.5 CALCIUM CORRECTED 11.2 mg/dL 8.5-10.1 Erythrocyte sedimentation rate by eugene gren method - 04/23/19 17:42 Erythrocyte sedimentation rate by westergren method 15 mm 0- 30 Complete urinalysis with reflex to cultu re - 04/23/19 18:37 Urine color determination YELLOW NRG Urine clarity determination VERY CLOUDY NRG Urine pH measurement by test strip 7 5-9 Specific gravity of urine by test strip 1.010 1.016-1.022 Urine protein assay by test strip, semi-quantitative NEGATIVE NEGATIVE Urine glucose detection by automated test strip NE GATIVE NEGATIVE Erythrocytes detection in urine sediment by light micr oscopy NEGATIVE NEGATIVE Urine ketones detection by automated test strip NE GATIVE NEGATIVE Urine nitrite detection by test strip NEGATIVE NEGATIVE Urine total bilirubin detection by test strip NEGA TIVE NEGATIVE Urine urobilinogen measurement by automated test strip (mass/volume) NORMAL NORMAL Urine leukocyte esterase detection by dipstick 1+ NEGATIVE Automated urine sediment erythrocyte cou nt by microscopy (number/high power field) NONE NRG Automated urine sediment leukocyte count by microscopy (number/high power field) [HPF] NRG Bacteria detection in urine sediment by light microsco py FEW NRG Squamous epithelial cells detection in u rine sediment by light microscopy 5-10 NRG Crystals detection in urine sediment by light microsco py PRESENT NRG Casts detection in urine sediment by light microscopy NONE NRG Mucus detection in urine sediment by light microscopy NEGATIVE NRG Complete urinalysis with reflex to culture YES NRG Amorphous sediment detection in urine sediment by ligh t microscopy LARGE LATONYA PHOSPHATE NRG Bacterial urine culture - 04/23/19 18:37 Bacterial urine culture 3 OR MORE NRG COLONY COUNT >100,000/ML NRG FTX;REPORTABLE SUGGESTING PROBABLE COLLECTION NRG FREE TEXT ENTRY 2 CONTAMINATION WITH SKIN ANGELA NRG FREE TEXT ENTRY 3 NO SUSCEPTIBILITY PERFORMED NRG Complete blood count (CBC) with automate d white blood cell (WBC) differential - 10/31/19 11:15 Blood leukocytes automated count (number/volume) 9.0 10*3/uL 4.3-11.0 Blood erythrocytes automated count (number/volume) 4.15 10*6/uL 4.35-5.85 Venous blood hemoglobin measurement (mass/volume) 13.3 g/dL 11.5-16.0 Blood hematocrit (volume fraction) 42 % 35-52 Automated erythrocyte mean corpuscular volume 101 [foz_us] 80-99 Automated erythrocyte mean corpuscular h emoglobin (mass per erythrocyte) 32 pg 25-34 Automated erythrocyte mean corpuscular h emoglobin concentration measurement (mass/volume) 32 g/dL 32-36 Automated erythrocyte distribution width ratio 15. 1 % 10.0- 14.5 Automated blood platelet count (count/volume) 149 10*3/uL 130-400 Automated blood platelet mean volume measurement 11.6 [foz_us] 7.4-10.4 Automated blood neutrophils/100 leukocytes 90 % 42-75 Automated blood lymphocytes/100 leukocytes 6 % 12-44 Blood monocytes/100 leukocytes 4 % 0-12 Automated blood eosinophils/100 leukocytes 0 % 0-10 Automated blood basophils/100 leukocytes 0 % 0-10 Blood neutrophils automated count (number/volume) 8.0 10*3 1.8-7.8 Blood lymphocytes automated count (number/volume) 0.6 10*3 1.0-4.0 Blood monocytes automated count (number/volume) 0. 4 10*3 0.0-1.0 Automated eosinophil count 0.0 10*3/uL 0 .0-0.3 Automated blood basophil count (count/volume) 0.0 10*3/uL 0.0-0.1 Comprehensive metabolic panel - 10/31/19 11:15 Serum or plasma sodium measurement (moles/volume) 141 mmol/L 135-145 Serum or plasma potassium measurement (moles/volume) 3.6 mmol/L 3.6-5.0 Serum or plasma chloride measurement (moles/volume) 101 mmol/L 98-107 Carbon dioxide 26 mmol/L 21-32 Serum or plasma anion gap determination (moles/volume) 14 mmol/L 5-14 Serum or plasma urea nitrogen measurement (mass/volume ) 12 mg/dL 7-18 Serum or plasma creatinine measurement (mass/volume) 0.92 mg/dL 0.60-1.30 Serum or plasma urea nitrogen/creatinine mass ratio 13 NRG Serum or plasma creatinine measurement w ith calculation of estimated glomerular filtration rate 58 NRG Serum or plasma glucose measurement (mass/volume) 144 mg/dL 70-105 Serum or plasma calcium measurement (mass/volume) 11.3 mg/dL 8.5-10.1 Serum or plasma total bilirubin measurement (mass/volu me) 0.5 mg/dL 0.1-1.0 Serum or plasma alkaline phosphatase kaitlynn surement (enzymatic activity/volume) 69 U/L 40-136 Serum or plasma aspartate aminotransfera se measurement (enzymatic activity/volume) 41 U/L 5-34 Serum or plasma alanine aminotransferase measurement (enzymatic activity/volume) 25 U/L 0-55 Serum or plasma protein measurement (mass/volume) 7.2 g/dL 6.4-8.2 Serum or plasma albumin measurement (mass/volume) 4.2 g/dL 3.2-4.5 CALCIUM CORRECTED 11.1 mg/dL 8.5-10.1 Serum or plasma creatine kinase measurem ent (enzymatic activity/volume) - 10/31/19 11:15 Serum or plasma creatine kinase measurem ent (enzymatic activity/volume) 54 U/L 29-168 Myoglobin, serum - 10/31/19 11:15 Myoglobin, serum 224.5 ng/mL 10.0-92.0 Manual absolute plasma cell count - 10/20 01/08 11:15 Blood monocytes/100 leukocytes 3 % NRG Manual blood segmented neutrophils/100 leukocytes 89 % NRG Blood band neutrophils/100 leukocytes 0 % NRG Manual blood lymphocytes/100 leukocytes 8 % NRG Manual eosinophils/100 leukocytes in nose 0 % NRG Manual blood basophils/100 leukocytes 0 % NRG Blood erythrocyte morphology finding identification NORMAL NRG Complete urinalysis with reflex to cultu re - 10/31/19 11:55 Urine color determination YELLOW NRG Urine clarity determination SL CLOUDY N RG Urine pH measurement by test strip 7.0 5-9 Specific gravity of urine by test strip 1.020 1.016-1.022 Urine protein assay by test strip, semi-quantitative TRACE NEGATIVE Urine glucose detection by automated test strip NE GATIVE NEGATIVE Erythrocytes detection in urine sediment by light micr oscopy NEGATIVE NEGATIVE Urine ketones detection by automated test strip NE GATIVE NEGATIVE Urine nitrite detection by test strip NEGATIVE NEGATIVE Urine total bilirubin detection by test strip NEGA TIVE NEGATIVE Urine urobilinogen measurement by automated test strip (mass/volume) 0.2 mg/dL < = 1.0 Urine leukocyte esterase detection by dipstick TRA CE NEGATIVE Automated urine sediment erythrocyte cou nt by microscopy (number/high power field) NONE NRG Automated urine sediment leukocyte count by microscopy (number/high power field) [HPF] NRG Bacteria detection in urine sediment by light microsco py FEW NRG Squamous epithelial cells detection in u rine sediment by light microscopy 10-25 NRG Crystals detection in urine sediment by light microsco py NONE NRG Casts detection in urine sediment by light microscopy NONE NRG Mucus detection in urine sediment by light microscopy NEGATIVE NRG Complete urinalysis with reflex to culture NO NRG Renal epithelial cells detection in urin e sediment by light microscopy 2-5 NRG Bacterial urine culture - 10/31/19 11:55 Bacterial urine culture NG NRG Complete blood count (CBC) with automate d white blood cell (WBC) differential - 11/02/19 05:57 Blood leukocytes automated count (number/volume) 4.8 10*3/uL 4.3-11.0 Blood erythrocytes automated count (number/volume) 3.71 10*6/uL 4.35-5.85 Venous blood hemoglobin measurement (mass/volume) 12.0 g/dL 11.5-16.0 Blood hematocrit (volume fraction) 37 % 35-52 Automated erythrocyte mean corpuscular volume 101 [foz_us] 80-99 Automated erythrocyte mean corpuscular h emoglobin (mass per erythrocyte) 32 pg 25-34 Automated erythrocyte mean corpuscular h emoglobin concentration measurement (mass/volume) 32 g/dL 32-36 Automated erythrocyte distribution width ratio 15. 0 % 10.0- 14.5 Automated blood platelet count (count/volume) 112 10*3/uL 130-400 Automated blood platelet mean volume measurement 11.5 [foz_us] 7.4-10.4 Automated blood neutrophils/100 leukocytes 68 % 42-75 Automated blood lymphocytes/100 leukocytes 18 % 12-44 Blood monocytes/100 leukocytes 12 % 0-12 Automated blood eosinophils/100 leukocytes 2 % 0-10 Automated blood basophils/100 leukocytes 0 % 0-10 Blood neutrophils automated count (number/volume) 3.2 10*3 1.8-7.8 Blood lymphocytes automated count (number/volume) 0.8 10*3 1.0-4.0 Blood monocytes automated count (number/volume) 0. 6 10*3 0.0-1.0 Automated eosinophil count 0.1 10*3/uL 0 .0-0.3 Automated blood basophil count (count/volume) 0.0 10*3/uL 0.0-0.1 Comprehensive metabolic panel - 11/02/19 05:57 Serum or plasma sodium measurement (moles/volume) 141 mmol/L 135-145 Serum or plasma potassium measurement (moles/volume) 3.1 mmol/L 3.6-5.0 Serum or plasma chloride measurement (moles/volume) 107 mmol/L 98-107 Carbon dioxide 23 mmol/L 21-32 Serum or plasma anion gap determination (moles/volume) 11 mmol/L 5-14 Serum or plasma urea nitrogen measurement (mass/volume ) 12 mg/dL 7-18 Serum or plasma creatinine measurement (mass/volume) 0.76 mg/dL 0.60-1.30 Serum or plasma urea nitrogen/creatinine mass ratio 16 NRG Serum or plasma creatinine measurement w ith calculation of estimated glomerular filtration rate > NRG Serum or plasma glucose measurement (mass/volume) 98 mg/dL 70-105 Serum or plasma calcium measurement (mass/volume) 10.7 mg/dL 8.5-10.1 Serum or plasma total bilirubin measurement (mass/volu me) 0.5 mg/dL 0.1-1.0 Serum or plasma alkaline phosphatase kaitlynn surement (enzymatic activity/volume) 55 U/L 40-136 Serum or plasma aspartate aminotransfera se measurement (enzymatic activity/volume) 35 U/L 5-34 Serum or plasma alanine aminotransferase measurement (enzymatic activity/volume) 20 U/L 0-55 Serum or plasma protein measurement (mass/volume) 6.0 g/dL 6.4-8.2 Serum or plasma albumin measurement (mass/volume) 3.6 g/dL 3.2-4.5 CALCIUM CORRECTED 11.0 mg/dL 8.5-10.1 Complete blood count (CBC) with automate d white blood cell (WBC) differential - 11/03/19 05:59 Blood leukocytes automated count (number/volume) 4.6 10*3/uL 4.3-11.0 Blood erythrocytes automated count (number/volume) 3.58 10*6/uL 4.35-5.85 Venous blood hemoglobin measurement (mass/volume) 11.6 g/dL 11.5-16.0 Blood hematocrit (volume fraction) 36 % 35-52 Automated erythrocyte mean corpuscular volume 101 [foz_us] 80-99 Automated erythrocyte mean corpuscular h emoglobin (mass per erythrocyte) 32 pg 25-34 Automated erythrocyte mean corpuscular h emoglobin concentration measurement (mass/volume) 32 g/dL 32-36 Automated erythrocyte distribution width ratio 15. 2 % 10.0- 14.5 Automated blood platelet count (count/volume) 112 10*3/uL 130-400 Automated blood platelet mean volume measurement 11.0 [foz_us] 7.4-10.4 Automated blood neutrophils/100 leukocytes 65 % 42-75 Automated blood lymphocytes/100 leukocytes 21 % 12-44 Blood monocytes/100 leukocytes 11 % 0-12 Automated blood eosinophils/100 leukocytes 3 % 0-10 Automated blood basophils/100 leukocytes 0 % 0-10 Blood neutrophils automated count (number/volume) 3.0 10*3 1.8-7.8 Blood lymphocytes automated count (number/volume) 1.0 10*3 1.0-4.0 Blood monocytes automated count (number/volume) 0. 5 10*3 0.0-1.0 Automated eosinophil count 0.1 10*3/uL 0 .0-0.3 Automated blood basophil count (count/volume) 0.0 10*3/uL 0.0-0.1 Comprehensive metabolic panel - 11/03/19 05:59 Serum or plasma sodium measurement (moles/volume) 143 mmol/L 135-145 Serum or plasma potassium measurement (moles/volume) 3.5 mmol/L 3.6-5.0 Serum or plasma chloride measurement (moles/volume) 110 mmol/L 98-107 Carbon dioxide 22 mmol/L 21-32 Serum or plasma anion gap determination (moles/volume) 11 mmol/L 5-14 Serum or plasma urea nitrogen measurement (mass/volume ) 13 mg/dL 7-18 Serum or plasma creatinine measurement (mass/volume) 0.78 mg/dL 0.60-1.30 Serum or plasma urea nitrogen/creatinine mass ratio 17 NRG Serum or plasma creatinine measurement w ith calculation of estimated glomerular filtration rate > NRG Serum or plasma glucose measurement (mass/volume) 94 mg/dL 70-105 Serum or plasma calcium measurement (mass/volume) 10.5 mg/dL 8.5-10.1 Serum or plasma total bilirubin measurement (mass/volu me) 0.4 mg/dL 0.1-1.0 Serum or plasma alkaline phosphatase kaitlynn surement (enzymatic activity/volume) 57 U/L 40-136 Serum or plasma aspartate aminotransfera se measurement (enzymatic activity/volume) 34 U/L 5-34 Serum or plasma alanine aminotransferase measurement (enzymatic activity/volume) 19 U/L 0-55 Serum or plasma protein measurement (mass/volume) 5.8 g/dL 6.4-8.2 Serum or plasma albumin measurement (mass/volume) 3.3 g/dL 3.2-4.5 CALCIUM CORRECTED 11.1 mg/dL 8.5-10.1 Magnesium - 11/03/19 05:59 Magnesium 1.7 mg/dL 1.6-2.4 THYROID STIMULATING HORMONE - 11/03/19 0 5:59 THYROID STIMULATING HORMONE 1.63 u[iU]/mL 0.35-4.94 Comprehensive metabolic panel - 11/04/19 05:35 Serum or plasma sodium measurement (moles/volume) 142 mmol/L 135-145 Serum or plasma potassium measurement (moles/volume) 3.5 mmol/L 3.6-5.0 Serum or plasma chloride measurement (moles/volume) 109 mmol/L 98-107 Carbon dioxide 25 mmol/L 21-32 Serum or plasma anion gap determination (moles/volume) 8 mmol/L 5-14 Serum or plasma urea nitrogen measurement (mass/volume ) 17 mg/dL 7-18 Serum or plasma creatinine measurement (mass/volume) 0.81 mg/dL 0.60-1.30 Serum or plasma urea nitrogen/creatinine mass ratio 21 NRG Serum or plasma creatinine measurement w ith calculation of estimated glomerular filtration rate > NRG Serum or plasma glucose measurement (mass/volume) 91 mg/dL 70-105 Serum or plasma calcium measurement (mass/volume) 10.5 mg/dL 8.5-10.1 Serum or plasma total bilirubin measurement (mass/volu me) 0.4 mg/dL 0.1-1.0 Serum or plasma alkaline phosphatase kaitlynn surement (enzymatic activity/volume) 55 U/L 40-136 Serum or plasma aspartate aminotransfera se measurement (enzymatic activity/volume) 42 U/L 5-34 Serum or plasma alanine aminotransferase measurement (enzymatic activity/volume) 25 U/L 0-55 Serum or plasma protein measurement (mass/volume) 5.8 g/dL 6.4-8.2 Serum or plasma albumin measurement (mass/volume) 3.4 g/dL 3.2-4.5 CALCIUM CORRECTED 11.0 mg/dL 8.5-10.1 Complete blood count (CBC) with automate d white blood cell (WBC) differential - 11/04/19 06:35 Blood leukocytes automated count (number/volume) 4.6 10*3/uL 4.3-11.0 Blood erythrocytes automated count (number/volume) 3.72 10*6/uL 4.35-5.85 Venous blood hemoglobin measurement (mass/volume) 11.8 g/dL 11.5-16.0 Blood hematocrit (volume fraction) 38 % 35-52 Automated erythrocyte mean corpuscular volume 101 [foz_us] 80-99 Automated erythrocyte mean corpuscular h emoglobin (mass per erythrocyte) 32 pg 25-34 Automated erythrocyte mean corpuscular h emoglobin concentration measurement (mass/volume) 31 g/dL 32-36 Automated erythrocyte distribution width ratio 15. 3 % 10.0- 14.5 Automated blood platelet count (count/volume) 123 10*3/uL 130-400 Automated blood platelet mean volume measurement 11.5 [foz_us] 7.4-10.4 Automated blood neutrophils/100 leukocytes 67 % 42-75 Automated blood lymphocytes/100 leukocytes 20 % 12-44 Blood monocytes/100 leukocytes 10 % 0-12 Automated blood eosinophils/100 leukocytes 2 % 0-10 Automated blood basophils/100 leukocytes 1 % 0-10 Blood neutrophils automated count (number/volume) 3.1 10*3 1.8-7.8 Blood lymphocytes automated count (number/volume) 0.9 10*3 1.0-4.0 Blood monocytes automated count (number/volume) 0. 5 10*3 0.0-1.0 Automated eosinophil count 0.1 10*3/uL 0 .0-0.3 Automated blood basophil count (count/volume) 0.0 10*3/uL 0.0-0.1 Whole blood basic metabolic panel - 10/20 06/07 05:30 Serum or plasma sodium measurement (moles/volume) 142 mmol/L 135-145 Serum or plasma potassium measurement (moles/volume) 3.9 mmol/L 3.6-5.0 Serum or plasma chloride measurement (moles/volume) 110 mmol/L 98-107 Carbon dioxide 22 mmol/L 21-32 Serum or plasma anion gap determination (moles/volume) 10 mmol/L 5-14 Serum or plasma urea nitrogen measurement (mass/volume ) 20 mg/dL 7-18 Serum or plasma creatinine measurement (mass/volume) 0.89 mg/dL 0.60-1.30 Serum or plasma urea nitrogen/creatinine mass ratio 22 NRG Serum or plasma creatinine measurement w ith calculation of estimated glomerular filtration rate 60 NRG Serum or plasma glucose measurement (mass/volume) 88 mg/dL 70-105 Serum or plasma calcium measurement (mass/volume) 10.3 mg/dL 8.5-10.1 Magnesium - 11/05/19 05:30 Magnesium 1.8 mg/dL 1.6-2.4 Complete blood count (CBC) with automate d white blood cell (WBC) differential - 12/04/19 13:35 Blood leukocytes automated count (number/volume) 6.3 10*3/uL 4.3-11.0 Blood erythrocytes automated count (number/volume) 3.74 10*6/uL 4.35-5.85 Venous blood hemoglobin measurement (mass/volume) 11.8 g/dL 11.5-16.0 Blood hematocrit (volume fraction) 38 % 35-52 Automated erythrocyte mean corpuscular volume 100 [foz_us] 80-99 Automated erythrocyte mean corpuscular h emoglobin (mass per erythrocyte) 32 pg 25-34 Automated erythrocyte mean corpuscular h emoglobin concentration measurement (mass/volume) 32 g/dL 32-36 Automated erythrocyte distribution width ratio 15. 8 % 10.0- 14.5 Automated blood platelet count (count/volume) 148 10*3/uL 130-400 Automated blood platelet mean volume measurement 11.2 [foz_us] 7.4-10.4 Automated blood neutrophils/100 leukocytes 73 % 42-75 Automated blood lymphocytes/100 leukocytes 16 % 12-44 Blood monocytes/100 leukocytes 9 % 0-12 Automated blood eosinophils/100 leukocytes 2 % 0-10 Automated blood basophils/100 leukocytes 0 % 0-10 Blood neutrophils automated count (number/volume) 4.6 10*3 1.8-7.8 Blood lymphocytes automated count (number/volume) 1.0 10*3 1.0-4.0 Blood monocytes automated count (number/volume) 0. 6 10*3 0.0-1.0 Automated eosinophil count 0.1 10*3/uL 0 .0-0.3 Automated blood basophil count (count/volume) 0.0 10*3/uL 0.0-0.1 Comprehensive metabolic panel - 12/04/19 13:35 Serum or plasma sodium measurement (moles/volume) 140 mmol/L 135-145 Serum or plasma potassium measurement (moles/volume) 4.6 mmol/L 3.6-5.0 Serum or plasma chloride measurement (moles/volume) 107 mmol/L 98-107 Carbon dioxide 19 mmol/L 21-32 Serum or plasma anion gap determination (moles/volume) 14 mmol/L 5-14 Serum or plasma urea nitrogen measurement (mass/volume ) 15 mg/dL 7-18 Serum or plasma creatinine measurement (mass/volume) 0.91 mg/dL 0.60-1.30 Serum or plasma urea nitrogen/creatinine mass ratio 16 NRG Serum or plasma creatinine measurement w ith calculation of estimated glomerular filtration rate 59 NRG Serum or plasma glucose measurement (mass/volume) 118 mg/dL 70-105 Serum or plasma calcium measurement (mass/volume) 10.5 mg/dL 8.5-10.1 Serum or plasma total bilirubin measurement (mass/volu me) 0.4 mg/dL 0.1-1.0 Serum or plasma alkaline phosphatase kaitlynn surement (enzymatic activity/volume) 66 U/L 40-136 Serum or plasma aspartate aminotransfera se measurement (enzymatic activity/volume) 34 U/L 5-34 Serum or plasma alanine aminotransferase measurement (enzymatic activity/volume) 13 U/L 0-55 Serum or plasma protein measurement (mass/volume) 7.1 g/dL 6.4-8.2 Serum or plasma albumin measurement (mass/volume) 3.7 g/dL 3.2-4.5 CALCIUM CORRECTED 10.7 mg/dL 8.5-10.1 Magnesium - 12/04/19 13:35 Magnesium 1.8 mg/dL 1.6-2.4 Serum or plasma troponin i.cardiac measu rement (mass/volume) - 12/04/19 13:35 Serum or plasma troponin i.cardiac measurement (mass/v olume) < ng/mL <0.028 Serum or plasma C reactive protein measu rement (mass/volume) - 12/04/19 13:35 Serum or plasma C reactive protein measurement (mass/v olume) 0.85 mg/dL 0.00-0.50 Complete urinalysis with reflex to cultu re - 12/04/19 13:55 Urine color determination YELLOW NRG Urine clarity determination SL CLOUDY N RG Urine pH measurement by test strip 6.0 5-9 Specific gravity of urine by test strip >= 1.016-1.022 Urine protein assay by test strip, semi-quantitative 2+ NEGATIVE Urine glucose detection by automated test strip NE GATIVE NEGATIVE Erythrocytes detection in urine sediment by light micr oscopy TRACE-I NEGATIVE Urine ketones detection by automated test strip NE GATIVE NEGATIVE Urine nitrite detection by test strip NEGATIVE NEGATIVE Urine total bilirubin detection by test strip NEGA TIVE NEGATIVE Urine urobilinogen measurement by automated test strip (mass/volume) 0.2 mg/dL < = 1.0 Urine leukocyte esterase detection by dipstick NEG ATIVE NEGATIVE Automated urine sediment erythrocyte cou nt by microscopy (number/high power field) [HPF] NRG Automated urine sediment leukocyte count by microscopy (number/high power field) [HPF] NRG Bacteria detection in urine sediment by light microsco py TRACE NRG Squamous epithelial cells detection in u rine sediment by light microscopy 2-5 NRG Crystals detection in urine sediment by light microsco py NONE NRG Casts detection in urine sediment by light microscopy PRESENT NRG Mucus detection in urine sediment by light microscopy SMALL NRG Complete urinalysis with reflex to culture NO NRG Hyaline casts detection in urine sediment by light jude roscopy 2-5 NRG Complete blood count (CBC) with automate d white blood cell (WBC) differential - 12/05/19 04:24 Blood leukocytes automated count (number/volume) 7.0 10*3/uL 4.3-11.0 Blood erythrocytes automated count (number/volume) 3.31 10*6/uL 4.35-5.85 Venous blood hemoglobin measurement (mass/volume) 10.7 g/dL 11.5-16.0 Blood hematocrit (volume fraction) 33 % 35-52 Automated erythrocyte mean corpuscular volume 101 [foz_us] 80-99 Automated erythrocyte mean corpuscular h emoglobin (mass per erythrocyte) 32 pg 25-34 Automated erythrocyte mean corpuscular h emoglobin concentration measurement (mass/volume) 32 g/dL 32-36 Automated erythrocyte distribution width ratio 15. 3 % 10.0- 14.5 Automated blood platelet count (count/volume) 119 10*3/uL 130-400 Automated blood platelet mean volume measurement 11.3 [foz_us] 7.4-10.4 Automated blood neutrophils/100 leukocytes 79 % 42-75 Automated blood lymphocytes/100 leukocytes 11 % 12-44 Blood monocytes/100 leukocytes 9 % 0-12 Automated blood eosinophils/100 leukocytes 1 % 0-10 Automated blood basophils/100 leukocytes 0 % 0-10 Blood neutrophils automated count (number/volume) 5.6 10*3 1.8-7.8 Blood lymphocytes automated count (number/volume) 0.8 10*3 1.0-4.0 Blood monocytes automated count (number/volume) 0. 6 10*3 0.0-1.0 Automated eosinophil count 0.1 10*3/uL 0 .0-0.3 Automated blood basophil count (count/volume) 0.0 10*3/uL 0.0-0.1 Comprehensive metabolic panel - 12/05/19 04:24 Serum or plasma sodium measurement (moles/volume) 141 mmol/L 135-145 Serum or plasma potassium measurement (moles/volume) 3.6 mmol/L 3.6-5.0 Serum or plasma chloride measurement (moles/volume) 111 mmol/L 98-107 Carbon dioxide 20 mmol/L 21-32 Serum or plasma anion gap determination (moles/volume) 10 mmol/L 5-14 Serum or plasma urea nitrogen measurement (mass/volume ) 12 mg/dL 7-18 Serum or plasma creatinine measurement (mass/volume) 0.77 mg/dL 0.60-1.30 Serum or plasma urea nitrogen/creatinine mass ratio 16 NRG Serum or plasma creatinine measurement w ith calculation of estimated glomerular filtration rate > NRG Serum or plasma glucose measurement (mass/volume) 98 mg/dL 70-105 Serum or plasma calcium measurement (mass/volume) 9.9 mg/dL 8.5-10.1 Serum or plasma total bilirubin measurement (mass/volu me) 0.4 mg/dL 0.1-1.0 Serum or plasma alkaline phosphatase kaitlynn surement (enzymatic activity/volume) 59 U/L 40-136 Serum or plasma aspartate aminotransfera se measurement (enzymatic activity/volume) 22 U/L 5-34 Serum or plasma alanine aminotransferase measurement (enzymatic activity/volume) 11 U/L 0-55 Serum or plasma protein measurement (mass/volume) 5.9 g/dL 6.4-8.2 Serum or plasma albumin measurement (mass/volume) 3.3 g/dL 3.2-4.5 CALCIUM CORRECTED 10.5 mg/dL 8.5-10.1 Capillary blood glucose measurement by g lucometer (mass/volume) - 12/25/19 13:01 Capillary blood glucose measurement by glucometer (mas s/volume) 116 mg/dL 70-110 Complete blood count (CBC) with automate d white blood cell (WBC) differential - 12/25/19 13:07 Blood leukocytes automated count (number/volume) 5.7 10*3/uL 4.3-11.0 Blood erythrocytes automated count (number/volume) 3.97 10*6/uL 4.35-5.85 Venous blood hemoglobin measurement (mass/volume) 12.7 g/dL 11.5-16.0 Blood hematocrit (volume fraction) 41 % 35-52 Automated erythrocyte mean corpuscular volume 102 [foz_us] 80-99 Automated erythrocyte mean corpuscular h emoglobin (mass per erythrocyte) 32 pg 25-34 Automated erythrocyte mean corpuscular h emoglobin concentration measurement (mass/volume) 31 g/dL 32-36 Automated erythrocyte distribution width ratio 16. 0 % 10.0- 14.5 Automated blood platelet count (count/volume) 171 10*3/uL 130-400 Automated blood platelet mean volume measurement 10.7 [foz_us] 7.4-10.4 Automated blood neutrophils/100 leukocytes 69 % 42-75 Automated blood lymphocytes/100 leukocytes 20 % 12-44 Blood monocytes/100 leukocytes 8 % 0-12 Automated blood eosinophils/100 leukocytes 2 % 0-10 Automated blood basophils/100 leukocytes 1 % 0-10 Blood neutrophils automated count (number/volume) 3.9 10*3 1.8-7.8 Blood lymphocytes automated count (number/volume) 1.1 10*3 1.0-4.0 Blood monocytes automated count (number/volume) 0. 5 10*3 0.0-1.0 Automated eosinophil count 0.1 10*3/uL 0 .0-0.3 Automated blood basophil count (count/volume) 0.0 10*3/uL 0.0-0.1 Complete urinalysis with reflex to cultu re - 12/25/19 13:07 Urine color determination YELLOW NRG Urine clarity determination SL CLOUDY N RG Urine pH measurement by test strip 7.0 5-9 Specific gravity of urine by test strip 1.020 1.016-1.022 Urine protein assay by test strip, semi-quantitative 2+ NEGATIVE Urine glucose detection by automated test strip NE GATIVE NEGATIVE Erythrocytes detection in urine sediment by light micr oscopy TRACE-I NEGATIVE Urine ketones detection by automated test strip NE GATIVE NEGATIVE Urine nitrite detection by test strip NEGATIVE NEGATIVE Urine total bilirubin detection by test strip NEGA TIVE NEGATIVE Urine urobilinogen measurement by automated test strip (mass/volume) 0.2 mg/dL < = 1.0 Urine leukocyte esterase detection by dipstick NEG ATIVE NEGATIVE Automated urine sediment erythrocyte cou nt by microscopy (number/high power field) [HPF] NRG Automated urine sediment leukocyte count by microscopy (number/high power field) [HPF] NRG Bacteria detection in urine sediment by light microsco py NEGATIVE NRG Squamous epithelial cells detection in u rine sediment by light microscopy 0-2 NRG Crystals detection in urine sediment by light microsco py PRESENT NRG Casts detection in urine sediment by light microscopy NONE NRG Mucus detection in urine sediment by light microscopy NEGATIVE NRG Complete urinalysis with reflex to culture NO NRG Amorphous sediment detection in urine sediment by ligh t microscopy FEW LATONYA PHOSPHATE NRG Comprehensive metabolic panel - 12/25/19 13:07 Serum or plasma sodium measurement (moles/volume) 140 mmol/L 135-145 Serum or plasma potassium measurement (moles/volume) 4.0 mmol/L 3.6-5.0 Serum or plasma chloride measurement (moles/volume) 107 mmol/L 98-107 Carbon dioxide 17 mmol/L 21-32 Serum or plasma anion gap determination (moles/volume) 16 mmol/L 5-14 Serum or plasma urea nitrogen measurement (mass/volume ) 11 mg/dL 7-18 Serum or plasma creatinine measurement (mass/volume) 1.11 mg/dL 0.60-1.30 Serum or plasma urea nitrogen/creatinine mass ratio 10 NRG Serum or plasma creatinine measurement w ith calculation of estimated glomerular filtration rate 47 NRG Serum or plasma glucose measurement (mass/volume) 117 mg/dL 70-105 Serum or plasma calcium measurement (mass/volume) 10.8 mg/dL 8.5-10.1 Serum or plasma total bilirubin measurement (mass/volu me) 0.4 mg/dL 0.1-1.0 Serum or plasma alkaline phosphatase kaitlynn surement (enzymatic activity/volume) 91 U/L 40-136 Serum or plasma aspartate aminotransfera se measurement (enzymatic activity/volume) 36 U/L 5-34 Serum or plasma alanine aminotransferase measurement (enzymatic activity/volume) 16 U/L 0-55 Serum or plasma protein measurement (mass/volume) 7.5 g/dL 6.4-8.2 Serum or plasma albumin measurement (mass/volume) 3.8 g/dL 3.2-4.5 CALCIUM CORRECTED 11.0 mg/dL 8.5-10.1 Magnesium - 12/25/19 13:07 Magnesium 1.8 mg/dL 1.6-2.4 Serum or plasma lithium measurement (mol es/volume) - 12/25/19 13:07 BNP PT 90.2 pg/mL <100.0 Serum or plasma troponin i.cardiac measu rement (mass/volume) - 12/25/19 13:07 Serum or plasma troponin i.cardiac measurement (mass/v olume) < ng/mL <0.028 Serum or plasma thyrotropin measurement by detection limit <=0.05 miu/l (units/volume) - 12/25/19 13:07 Serum or plasma thyrotropin measurement by detection limit <=0.05 miu/l (units/volume) 3.19 u[iU]/mL 0.35-4.94 Influenza virus A and B antigen detectio n - 12/25/19 13:25 FLU RESULT NEGATIVE FOR INFLUENZA A AND B ANTIGENS BY IA NRG Bacterial blood culture - 12/25/19 13:48 Bacterial blood culture NG NRG Bacterial blood culture - 12/25/19 14:19 Bacterial blood culture NG NRG Methicillin resistant Staphylococcus aur eus (MRSA) screening culture - 12/25/19 18:10 Methicillin resistant Staphylococcus aureus (MRSA) scr eening culture NEG NRG Capillary blood glucose measurement by g lucometer (mass/volume) - 12/25/19 23:19 Capillary blood glucose measurement by glucometer (mas s/volume) 118 mg/dL 70-110 Complete blood count (CBC) with automate d white blood cell (WBC) differential - 12/26/19 03:50 Blood leukocytes automated count (number/volume) 9.8 10*3/uL 4.3-11.0 Blood erythrocytes automated count (number/volume) 3.42 10*6/uL 4.35-5.85 Venous blood hemoglobin measurement (mass/volume) 10.9 g/dL 11.5-16.0 Blood hematocrit (volume fraction) 35 % 35-52 Automated erythrocyte mean corpuscular volume 102 [foz_us] 80-99 Automated erythrocyte mean corpuscular h emoglobin (mass per erythrocyte) 32 pg 25-34 Automated erythrocyte mean corpuscular h emoglobin concentration measurement (mass/volume) 31 g/dL 32-36 Automated erythrocyte distribution width ratio 16. 3 % 10.0- 14.5 Automated blood platelet count (count/volume) 158 10*3/uL 130-400 Automated blood platelet mean volume measurement 11.0 [foz_us] 7.4-10.4 Automated blood neutrophils/100 leukocytes 82 % 42-75 Automated blood lymphocytes/100 leukocytes 9 % 12-44 Blood monocytes/100 leukocytes 8 % 0-12 Automated blood eosinophils/100 leukocytes 0 % 0-10 Automated blood basophils/100 leukocytes 0 % 0-10 Blood neutrophils automated count (number/volume) 8.1 10*3 1.8-7.8 Blood lymphocytes automated count (number/volume) 0.9 10*3 1.0-4.0 Blood monocytes automated count (number/volume) 0. 8 10*3 0.0-1.0 Automated eosinophil count 0.0 10*3/uL 0 .0-0.3 Automated blood basophil count (count/volume) 0.0 10*3/uL 0.0-0.1 Comprehensive metabolic panel - 12/26/19 03:50 Serum or plasma sodium measurement (moles/volume) 142 mmol/L 135-145 Serum or plasma potassium measurement (moles/volume) 3.6 mmol/L 3.6-5.0 Serum or plasma chloride measurement (moles/volume) 110 mmol/L 98-107 Carbon dioxide 25 mmol/L 21-32 Serum or plasma anion gap determination (moles/volume) 7 mmol/L 5-14 Serum or plasma urea nitrogen measurement (mass/volume ) 13 mg/dL 7-18 Serum or plasma creatinine measurement (mass/volume) 1.05 mg/dL 0.60-1.30 Serum or plasma urea nitrogen/creatinine mass ratio 12 NRG Serum or plasma creatinine measurement w ith calculation of estimated glomerular filtration rate 50 NRG Serum or plasma glucose measurement (mass/volume) 101 mg/dL 70-105 Serum or plasma calcium measurement (mass/volume) 10.6 mg/dL 8.5-10.1 Serum or plasma total bilirubin measurement (mass/volu me) 0.4 mg/dL 0.1-1.0 Serum or plasma alkaline phosphatase kaitlynn surement (enzymatic activity/volume) 76 U/L 40-136 Serum or plasma aspartate aminotransfera se measurement (enzymatic activity/volume) 26 U/L 5-34 Serum or plasma alanine aminotransferase measurement (enzymatic activity/volume) 15 U/L 0-55 Serum or plasma protein measurement (mass/volume) 6.3 g/dL 6.4-8.2 Serum or plasma albumin measurement (mass/volume) 3.4 g/dL 3.2-4.5 CALCIUM CORRECTED 11.1 mg/dL 8.5-10.1 Serum or plasma phosphate measurement (m ass/volume) - 12/26/19 03:50 Serum or plasma phosphate measurement (mass/volume) 2.8 mg/dL 2.3-4.7 Magnesium - 12/26/19 03:50 Magnesium 1.8 mg/dL 1.6-2.4 Arterial blood gas measurement - 0 06:55 Blood pCO2 47 mm[Hg] 35-45 Blood pO2 95 mm[Hg] 79-93 Arterial blood bicarbonate measurement (moles/volume) 27 mmol/L 23-27 Arterial blood base excess by calculation 2.2 mmol /L -2.5-2.5 Arterial blood oxygen saturation measurement 98 % 94-100 * Inhaled oxygen flow rate UNKNOWN NRG Arterial blood pH measurement with patient temperature correction 7.37 7.37-7.43 Arterial blood carbon dioxide, total measurement (mole s/volume) 28.2 mmol/L 21.0-31.0 Body site R RAD NRG Assessment of wrist artery patency prior to arterial p uncture YES-POS NRG Setting of ventilation mode NO NR G Measurement of body temperature 37.3 NRG Capillary blood glucose measurement by g lucometer (mass/volume) - 12/26/19 12:05 Capillary blood glucose measurement by glucometer (mas s/volume) 114 mg/dL 70-110 Capillary blood glucose measurement by g lucometer (mass/volume) - 12/26/19 17:10 Capillary blood glucose measurement by glucometer (mas s/volume) 119 mg/dL 70-110 Complete blood count (CBC) with automate d white blood cell (WBC) differential - 12/27/19 03:25 Blood leukocytes automated count (number/volume) 8.2 10*3/uL 4.3-11.0 Blood erythrocytes automated count (number/volume) 3.56 10*6/uL 4.35-5.85 Venous blood hemoglobin measurement (mass/volume) 11.4 g/dL 11.5-16.0 Blood hematocrit (volume fraction) 36 % 35-52 Automated erythrocyte mean corpuscular volume 101 [foz_us] 80-99 Automated erythrocyte mean corpuscular h emoglobin (mass per erythrocyte) 32 pg 25-34 Automated erythrocyte mean corpuscular h emoglobin concentration measurement (mass/volume) 32 g/dL 32-36 Automated erythrocyte distribution width ratio 16. 2 % 10.0- 14.5 Automated blood platelet count (count/volume) 124 10*3/uL 130-400 Automated blood platelet mean volume measurement 11.5 [foz_us] 7.4-10.4 Automated blood neutrophils/100 leukocytes 80 % 42-75 Automated blood lymphocytes/100 leukocytes 10 % 12-44 Blood monocytes/100 leukocytes 9 % 0-12 Automated blood eosinophils/100 leukocytes 1 % 0-10 Automated blood basophils/100 leukocytes 0 % 0-10 Blood neutrophils automated count (number/volume) 6.5 10*3 1.8-7.8 Blood lymphocytes automated count (number/volume) 0.9 10*3 1.0-4.0 Blood monocytes automated count (number/volume) 0. 7 10*3 0.0-1.0 Automated eosinophil count 0.1 10*3/uL 0 .0-0.3 Automated blood basophil count (count/volume) 0.0 10*3/uL 0.0-0.1 Whole blood basic metabolic panel - 06/08 03:25 Serum or plasma sodium measurement (moles/volume) 140 mmol/L 135-145 Serum or plasma potassium measurement (moles/volume) 3.0 mmol/L 3.6-5.0 Serum or plasma chloride measurement (moles/volume) 108 mmol/L 98-107 Carbon dioxide 21 mmol/L 21-32 Serum or plasma anion gap determination (moles/volume) 11 mmol/L 5-14 Serum or plasma urea nitrogen measurement (mass/volume ) 11 mg/dL 7-18 Serum or plasma creatinine measurement (mass/volume) 0.91 mg/dL 0.60-1.30 Serum or plasma urea nitrogen/creatinine mass ratio 12 NRG Serum or plasma creatinine measurement w ith calculation of estimated glomerular filtration rate 59 NRG Serum or plasma glucose measurement (mass/volume) 122 mg/dL 70-105 Serum or plasma calcium measurement (mass/volume) 10.7 mg/dL 8.5-10.1 Serum or plasma phosphate measurement (m ass/volume) - 12/27/19 03:25 Serum or plasma phosphate measurement (mass/volume) 1.7 mg/dL 2.3-4.7 Magnesium - 12/27/19 03:25 Magnesium 1.5 mg/dL 1.6-2.4 Capillary blood glucose measurement by g lucometer (mass/volume) - 12/27/19 11:45 Capillary blood glucose measurement by glucometer (mas s/volume) 98 mg/dL 70-110 Capillary blood glucose measurement by g lucometer (mass/volume) - 12/27/19 19:17 Capillary blood glucose measurement by glucometer (mas s/volume) 112 mg/dL 70-110 Capillary blood glucose measurement by g lucometer (mass/volume) - 12/28/19 00:49 Capillary blood glucose measurement by glucometer (mas s/volume) 119 mg/dL 70-110 Capillary blood glucose measurement by g lucometer (mass/volume) - 12/28/19 05:01 Capillary blood glucose measurement by glucometer (mas s/volume) 116 mg/dL 70-110 Complete blood count (CBC) with automate d white blood cell (WBC) differential - 12/28/19 07:15 Blood leukocytes automated count (number/volume) 11.4 10*3/uL 4.3-11.0 Blood erythrocytes automated count (number/volume) 3.53 10*6/uL 4.35-5.85 Venous blood hemoglobin measurement (mass/volume) 11.2 g/dL 11.5-16.0 Blood hematocrit (volume fraction) 36 % 35-52 Automated erythrocyte mean corpuscular volume 101 [foz_us] 80-99 Automated erythrocyte mean corpuscular h emoglobin (mass per erythrocyte) 32 pg 25-34 Automated erythrocyte mean corpuscular h emoglobin concentration measurement (mass/volume) 31 g/dL 32-36 Automated erythrocyte distribution width ratio 16. 5 % 10.0- 14.5 Automated blood platelet count (count/volume) 130 10*3/uL 130-400 Automated blood platelet mean volume measurement 11.2 [foz_us] 7.4-10.4 Automated blood neutrophils/100 leukocytes 88 % 42-75 Automated blood lymphocytes/100 leukocytes 5 % 12-44 Blood monocytes/100 leukocytes 6 % 0-12 Automated blood eosinophils/100 leukocytes 1 % 0-10 Automated blood basophils/100 leukocytes 0 % 0-10 Blood neutrophils automated count (number/volume) 9.9 10*3 1.8-7.8 Blood lymphocytes automated count (number/volume) 0.6 10*3 1.0-4.0 Blood monocytes automated count (number/volume) 0. 7 10*3 0.0-1.0 Automated eosinophil count 0.1 10*3/uL 0 .0-0.3 Automated blood basophil count (count/volume) 0.0 10*3/uL 0.0-0.1 Whole blood basic metabolic panel - 07/09 07:15 Serum or plasma sodium measurement (moles/volume) 141 mmol/L 135-145 Serum or plasma potassium measurement (moles/volume) 3.3 mmol/L 3.6-5.0 Serum or plasma chloride measurement (moles/volume) 113 mmol/L 98-107 Carbon dioxide 21 mmol/L 21-32 Serum or plasma anion gap determination (moles/volume) 7 mmol/L 5-14 Serum or plasma urea nitrogen measurement (mass/volume ) 13 mg/dL 7-18 Serum or plasma creatinine measurement (mass/volume) 0.94 mg/dL 0.60-1.30 Serum or plasma urea nitrogen/creatinine mass ratio 14 NRG Serum or plasma creatinine measurement w ith calculation of estimated glomerular filtration rate 56 NRG Serum or plasma glucose measurement (mass/volume) 129 mg/dL 70-105 Serum or plasma calcium measurement (mass/volume) 10.4 mg/dL 8.5-10.1 Serum or plasma phosphate measurement (m ass/volume) - 12/28/19 07:15 Serum or plasma phosphate measurement (mass/volume) 2.1 mg/dL 2.3-4.7 Magnesium - 12/28/19 07:15 Magnesium 1.7 mg/dL 1.6-2.4 Manual absolute plasma cell count - 07/09 07:15 Blood monocytes/100 leukocytes 9 % NRG Manual blood segmented neutrophils/100 leukocytes 88 % NRG Blood band neutrophils/100 leukocytes 1 % NRG Manual blood lymphocytes/100 leukocytes 2 % NRG Blood erythrocyte morphology finding identification NORMAL NRG Capillary blood glucose measurement by g lucometer (mass/volume) - 12/28/19 11:54 Capillary blood glucose measurement by glucometer (mas s/volume) 110 mg/dL 70-110 Capillary blood glucose measurement by g lucometer (mass/volume) - 12/28/19 18:23 Capillary blood glucose measurement by glucometer (mas s/volume) 113 mg/dL 70-110 Capillary blood glucose measurement by g lucometer (mass/volume) - 12/29/19 00:53 Capillary blood glucose measurement by glucometer (mas s/volume) 105 mg/dL 70-110 Capillary blood glucose measurement by g lucometer (mass/volume) - 12/29/19 06:06 Capillary blood glucose measurement by glucometer (mas s/volume) 100 mg/dL 70-110 Whole blood basic metabolic panel - 08/09 06:36 Serum or plasma sodium measurement (moles/volume) 143 mmol/L 135-145 Serum or plasma potassium measurement (moles/volume) 3.5 mmol/L 3.6-5.0 Serum or plasma chloride measurement (moles/volume) 113 mmol/L 98-107 Carbon dioxide 19 mmol/L 21-32 Serum or plasma anion gap determination (moles/volume) 11 mmol/L 5-14 Serum or plasma urea nitrogen measurement (mass/volume ) 19 mg/dL 7-18 Serum or plasma creatinine measurement (mass/volume) 1.16 mg/dL 0.60-1.30 Serum or plasma urea nitrogen/creatinine mass ratio 16 NRG Serum or plasma creatinine measurement w ith calculation of estimated glomerular filtration rate 44 NRG Serum or plasma glucose measurement (mass/volume) 98 mg/dL 70-105 Serum or plasma calcium measurement (mass/volume) 10.8 mg/dL 8.5-10.1 Serum or plasma phosphate measurement (m ass/volume) - 12/29/19 06:36 Serum or plasma phosphate measurement (mass/volume) 2.5 mg/dL 2.3-4.7 Magnesium - 12/29/19 06:36 Magnesium 1.6 mg/dL 1.6-2.4 Complete blood count (CBC) with automate d white blood cell (WBC) differential - 12/29/19 06:38 Blood leukocytes automated count (number/volume) 12.6 10*3/uL 4.3-11.0 Blood erythrocytes automated count (number/volume) 3.50 10*6/uL 4.35-5.85 Venous blood hemoglobin measurement (mass/volume) 11.0 g/dL 11.5-16.0 Blood hematocrit (volume fraction) 35 % 35-52 Automated erythrocyte mean corpuscular volume 101 [foz_us] 80-99 Automated erythrocyte mean corpuscular h emoglobin (mass per erythrocyte) 31 pg 25-34 Automated erythrocyte mean corpuscular h emoglobin concentration measurement (mass/volume) 31 g/dL 32-36 Automated erythrocyte distribution width ratio 16. 5 % 10.0- 14.5 Automated blood platelet count (count/volume) 103 10*3/uL 130-400 Automated blood platelet mean volume measurement 11.7 [foz_us] 7.4-10.4 Automated blood neutrophils/100 leukocytes 86 % 42-75 Automated blood lymphocytes/100 leukocytes 6 % 12-44 Blood monocytes/100 leukocytes 7 % 0-12 Automated blood eosinophils/100 leukocytes 1 % 0-10 Automated blood basophils/100 leukocytes 0 % 0-10 Blood neutrophils automated count (number/volume) 10.8 10*3 1.8-7.8 Blood lymphocytes automated count (number/volume) 0.7 10*3 1.0-4.0 Blood monocytes automated count (number/volume) 0. 9 10*3 0.0-1.0 Automated eosinophil count 0.2 10*3/uL 0 .0-0.3 Automated blood basophil count (count/volume) 0.0 10*3/uL 0.0-0.1 Capillary blood glucose measurement by g lucometer (mass/volume) - 12/29/19 12:05 Capillary blood glucose measurement by glucometer (mas s/volume) 115 mg/dL 70-110 Capillary blood glucose measurement by g lucometer (mass/volume) - 12/29/19 17:58 Capillary blood glucose measurement by glucometer (mas s/volume) 106 mg/dL 70-110 Capillary blood glucose measurement by g lucometer (mass/volume) - 12/30/19 00:57 Capillary blood glucose measurement by glucometer (mas s/volume) 96 mg/dL 70-110 Capillary blood glucose measurement by g lucometer (mass/volume) - 12/30/19 05:32 Capillary blood glucose measurement by glucometer (mas s/volume) 89 mg/dL 70-110 Complete blood count (CBC) with automate d white blood cell (WBC) differential - 12/30/19 07:05 Blood leukocytes automated count (number/volume) 9.7 10*3/uL 4.3-11.0 Blood erythrocytes automated count (number/volume) 3.26 10*6/uL 4.35-5.85 Venous blood hemoglobin measurement (mass/volume) 10.2 g/dL 11.5-16.0 Blood hematocrit (volume fraction) 33 % 35-52 Automated erythrocyte mean corpuscular volume 102 [foz_us] 80-99 Automated erythrocyte mean corpuscular h emoglobin (mass per erythrocyte) 31 pg 25-34 Automated erythrocyte mean corpuscular h emoglobin concentration measurement (mass/volume) 31 g/dL 32-36 Automated erythrocyte distribution width ratio 16. 5 % 10.0- 14.5 Automated blood platelet count (count/volume) 125 10*3/uL 130-400 Automated blood platelet mean volume measurement 11.6 [foz_us] 7.4-10.4 Automated blood neutrophils/100 leukocytes 84 % 42-75 Automated blood lymphocytes/100 leukocytes 6 % 12-44 Blood monocytes/100 leukocytes 10 % 0-12 Automated blood eosinophils/100 leukocytes 1 % 0-10 Automated blood basophils/100 leukocytes 0 % 0-10 Blood neutrophils automated count (number/volume) 8.1 10*3 1.8-7.8 Blood lymphocytes automated count (number/volume) 0.6 10*3 1.0-4.0 Blood monocytes automated count (number/volume) 0. 9 10*3 0.0-1.0 Automated eosinophil count 0.1 10*3/uL 0 .0-0.3 Automated blood basophil count (count/volume) 0.0 10*3/uL 0.0-0.1 Whole blood basic metabolic panel - 12/21 07:05 Serum or plasma sodium measurement (moles/volume) 148 mmol/L 135-145 Serum or plasma potassium measurement (moles/volume) 3.3 mmol/L 3.6-5.0 Serum or plasma chloride measurement (moles/volume) 116 mmol/L 98-107 Carbon dioxide 23 mmol/L 21-32 Serum or plasma anion gap determination (moles/volume) 9 mmol/L 5-14 Serum or plasma urea nitrogen measurement (mass/volume ) 26 mg/dL 7-18 Serum or plasma creatinine measurement (mass/volume) 1.06 mg/dL 0.60-1.30 Serum or plasma urea nitrogen/creatinine mass ratio 25 NRG Serum or plasma creatinine measurement w ith calculation of estimated glomerular filtration rate 49 NRG Serum or plasma glucose measurement (mass/volume) 97 mg/dL 70-105 Serum or plasma calcium measurement (mass/volume) 10.9 mg/dL 8.5-10.1 Serum or plasma phosphate measurement (m ass/volume) - 12/30/19 07:05 Serum or plasma phosphate measurement (mass/volume) 2.3 mg/dL 2.3-4.7 Magnesium - 12/30/19 07:05 Magnesium 1.6 mg/dL 1.6-2.4 Capillary blood glucose measurement by g lucometer (mass/volume) - 12/30/19 12:20 Capillary blood glucose measurement by glucometer (mas s/volume) 103 mg/dL 70-110 Capillary blood glucose measurement by g lucometer (mass/volume) - 12/30/19 16:43 Capillary blood glucose measurement by glucometer (mas s/volume) 130 mg/dL 70-110 Capillary blood glucose measurement by g lucometer (mass/volume) - 12/31/19 00:05 Capillary blood glucose measurement by glucometer (mas s/volume) 135 mg/dL 70-110 Complete blood count (CBC) with automate d white blood cell (WBC) differential - 12/31/19 05:00 Blood leukocytes automated count (number/volume) 10.0 10*3/uL 4.3-11.0 Blood erythrocytes automated count (number/volume) 3.20 10*6/uL 4.35-5.85 Venous blood hemoglobin measurement (mass/volume) 10.2 g/dL 11.5-16.0 Blood hematocrit (volume fraction) 33 % 35-52 Automated erythrocyte mean corpuscular volume 103 [foz_us] 80-99 Automated erythrocyte mean corpuscular h emoglobin (mass per erythrocyte) 32 pg 25-34 Automated erythrocyte mean corpuscular h emoglobin concentration measurement (mass/volume) 31 g/dL 32-36 Automated erythrocyte distribution width ratio 16. 0 % 10.0- 14.5 Automated blood platelet count (count/volume) 127 10*3/uL 130-400 Automated blood platelet mean volume measurement 11.4 [foz_us] 7.4-10.4 Automated blood neutrophils/100 leukocytes 84 % 42-75 Automated blood lymphocytes/100 leukocytes 6 % 12-44 Blood monocytes/100 leukocytes 8 % 0-12 Automated blood eosinophils/100 leukocytes 1 % 0-10 Automated blood basophils/100 leukocytes 0 % 0-10 Blood neutrophils automated count (number/volume) 8.5 10*3 1.8-7.8 Blood lymphocytes automated count (number/volume) 0.6 10*3 1.0-4.0 Blood monocytes automated count (number/volume) 0. 8 10*3 0.0-1.0 Automated eosinophil count 0.1 10*3/uL 0 .0-0.3 Automated blood basophil count (count/volume) 0.0 10*3/uL 0.0-0.1 Whole blood basic metabolic panel - 12/21 12/09 05:00 Serum or plasma sodium measurement (moles/volume) 146 mmol/L 135-145 Serum or plasma potassium measurement (moles/volume) 3.1 mmol/L 3.6-5.0 Serum or plasma chloride measurement (moles/volume) 116 mmol/L 98-107 Carbon dioxide 21 mmol/L 21-32 Serum or plasma anion gap determination (moles/volume) 9 mmol/L 5-14 Serum or plasma urea nitrogen measurement (mass/volume ) 25 mg/dL 7-18 Serum or plasma creatinine measurement (mass/volume) 0.82 mg/dL 0.60-1.30 Serum or plasma urea nitrogen/creatinine mass ratio 30 NRG Serum or plasma creatinine measurement w ith calculation of estimated glomerular filtration rate > NRG Serum or plasma glucose measurement (mass/volume) 122 mg/dL 70-105 Serum or plasma calcium measurement (mass/volume) 10.6 mg/dL 8.5-10.1 Serum or plasma phosphate measurement (m ass/volume) - 12/31/19 05:00 Serum or plasma phosphate measurement (mass/volume) 1.3 mg/dL 2.3-4.7 Magnesium - 12/31/19 05:00 Magnesium 1.5 mg/dL 1.6-2.4 Capillary blood glucose measurement by g lucometer (mass/volume) - 12/31/19 05:28 Capillary blood glucose measurement by glucometer (mas s/volume) 125 mg/dL 70-110 Capillary blood glucose measurement by g lucometer (mass/volume) - 12/31/19 11:36 Capillary blood glucose measurement by glucometer (mas s/volume) 132 mg/dL 70-110 Capillary blood glucose measurement by g lucometer (mass/volume) - 12/31/19 17:27 Capillary blood glucose measurement by glucometer (mas s/volume) 133 mg/dL 70-110 Capillary blood glucose measurement by g lucometer (mass/volume) - 12/31/19 23:31 Capillary blood glucose measurement by glucometer (mas s/volume) 118 mg/dL 70-110 Complete blood count (CBC) with automate d white blood cell (WBC) differential - 01/01/20 05:25 Blood leukocytes automated count (number/volume) 6.7 10*3/uL 4.3-11.0 Blood erythrocytes automated count (number/volume) 2.99 10*6/uL 4.35-5.85 Venous blood hemoglobin measurement (mass/volume) 9.5 g/dL 11.5-16.0 Blood hematocrit (volume fraction) 31 % 35-52 Automated erythrocyte mean corpuscular volume 103 [foz_us] 80-99 Automated erythrocyte mean corpuscular h emoglobin (mass per erythrocyte) 32 pg 25-34 Automated erythrocyte mean corpuscular h emoglobin concentration measurement (mass/volume) 31 g/dL 32-36 Automated erythrocyte distribution width ratio 16. 0 % 10.0- 14.5 Automated blood platelet count (count/volume) 140 10*3/uL 130-400 Automated blood platelet mean volume measurement 11.4 [foz_us] 7.4-10.4 Automated blood neutrophils/100 leukocytes 76 % 42-75 Automated blood lymphocytes/100 leukocytes 11 % 12-44 Blood monocytes/100 leukocytes 9 % 0-12 Automated blood eosinophils/100 leukocytes 3 % 0-10 Automated blood basophils/100 leukocytes 0 % 0-10 Blood neutrophils automated count (number/volume) 5.1 10*3 1.8-7.8 Blood lymphocytes automated count (number/volume) 0.8 10*3 1.0-4.0 Blood monocytes automated count (number/volume) 0. 6 10*3 0.0-1.0 Automated eosinophil count 0.2 10*3/uL 0 .0-0.3 Automated blood basophil count (count/volume) 0.0 10*3/uL 0.0-0.1 Whole blood basic metabolic panel - 12/21 01/09 05:25 Serum or plasma sodium measurement (moles/volume) 148 mmol/L 135-145 Serum or plasma potassium measurement (moles/volume) 3.8 mmol/L 3.6-5.0 Serum or plasma chloride measurement (moles/volume) 120 mmol/L 98-107 Carbon dioxide 23 mmol/L 21-32 Serum or plasma anion gap determination (moles/volume) 5 mmol/L 5-14 Serum or plasma urea nitrogen measurement (mass/volume ) 25 mg/dL 7-18 Serum or plasma creatinine measurement (mass/volume) 0.82 mg/dL 0.60-1.30 Serum or plasma urea nitrogen/creatinine mass ratio 30 NRG Serum or plasma creatinine measurement w ith calculation of estimated glomerular filtration rate > NRG Serum or plasma glucose measurement (mass/volume) 112 mg/dL 70-105 Serum or plasma calcium measurement (mass/volume) 10.8 mg/dL 8.5-10.1 Magnesium - 01/01/20 05:25 Magnesium 1.4 mg/dL 1.6-2.4 Capillary blood glucose measurement by g lucometer (mass/volume) - 01/01/20 12:04 Capillary blood glucose measurement by glucometer (mas s/volume) 145 mg/dL 70-110 Capillary blood glucose measurement by g lucometer (mass/volume) - 01/01/20 17:45 Capillary blood glucose measurement by glucometer (mas s/volume) 96 mg/dL 70-110 Capillary blood glucose measurement by g lucometer (mass/volume) - 01/01/20 20:28 Capillary blood glucose measurement by glucometer (mas s/volume) 101 mg/dL 70-110 Complete blood count (CBC) with automate d white blood cell (WBC) differential - 01/02/20 04:51 Blood leukocytes automated count (number/volume) 6.9 10*3/uL 4.3-11.0 Blood erythrocytes automated count (number/volume) 3.01 10*6/uL 4.35-5.85 Venous blood hemoglobin measurement (mass/volume) 9.5 g/dL 11.5-16.0 Blood hematocrit (volume fraction) 31 % 35-52 Automated erythrocyte mean corpuscular volume 102 [foz_us] 80-99 Automated erythrocyte mean corpuscular h emoglobin (mass per erythrocyte) 32 pg 25-34 Automated erythrocyte mean corpuscular h emoglobin concentration measurement (mass/volume) 31 g/dL 32-36 Automated erythrocyte distribution width ratio 15. 4 % 10.0- 14.5 Automated blood platelet count (count/volume) 144 10*3/uL 130-400 Automated blood platelet mean volume measurement 11.2 [foz_us] 7.4-10.4 Automated blood neutrophils/100 leukocytes 78 % 42-75 Automated blood lymphocytes/100 leukocytes 10 % 12-44 Blood monocytes/100 leukocytes 9 % 0-12 Automated blood eosinophils/100 leukocytes 3 % 0-10 Automated blood basophils/100 leukocytes 0 % 0-10 Blood neutrophils automated count (number/volume) 5.4 10*3 1.8-7.8 Blood lymphocytes automated count (number/volume) 0.7 10*3 1.0-4.0 Blood monocytes automated count (number/volume) 0. 6 10*3 0.0-1.0 Automated eosinophil count 0.2 10*3/uL 0 .0-0.3 Automated blood basophil count (count/volume) 0.0 10*3/uL 0.0-0.1 Whole blood basic metabolic panel - 12/21 02/06 04:51 Serum or plasma sodium measurement (moles/volume) 140 mmol/L 135-145 Serum or plasma potassium measurement (moles/volume) 3.1 mmol/L 3.6-5.0 Serum or plasma chloride measurement (moles/volume) 113 mmol/L 98-107 Carbon dioxide 20 mmol/L 21-32 Serum or plasma anion gap determination (moles/volume) 7 mmol/L 5-14 Serum or plasma urea nitrogen measurement (mass/volume ) 17 mg/dL 7-18 Serum or plasma creatinine measurement (mass/volume) 0.68 mg/dL 0.60-1.30 Serum or plasma urea nitrogen/creatinine mass ratio 25 NRG Serum or plasma creatinine measurement w ith calculation of estimated glomerular filtration rate > NRG Serum or plasma glucose measurement (mass/volume) 95 mg/dL 70-105 Serum or plasma calcium measurement (mass/volume) 9.4 mg/dL 8.5-10.1 Magnesium - 01/02/20 04:51 Magnesium 1.5 mg/dL 1.6-2.4 Capillary blood glucose measurement by g lucometer (mass/volume) - 01/02/20 11:47 Capillary blood glucose measurement by glucometer (mas s/volume) 119 mg/dL 70-110 Capillary blood glucose measurement by g lucometer (mass/volume) - 01/02/20 15:53 Capillary blood glucose measurement by glucometer (mas s/volume) 100 mg/dL 70-110 Capillary blood glucose measurement by g lucometer (mass/volume) - 01/02/20 20:35 Capillary blood glucose measurement by glucometer (mas s/volume) 117 mg/dL 70-110 Complete blood count (CBC) with automate d white blood cell (WBC) differential - 01/03/20 06:04 Blood leukocytes automated count (number/volume) 6.0 10*3/uL 4.3-11.0 Blood erythrocytes automated count (number/volume) 3.22 10*6/uL 4.35-5.85 Venous blood hemoglobin measurement (mass/volume) 10.2 g/dL 11.5-16.0 Blood hematocrit (volume fraction) 32 % 35-52 Automated erythrocyte mean corpuscular volume 100 [foz_us] 80-99 Automated erythrocyte mean corpuscular h emoglobin (mass per erythrocyte) 32 pg 25-34 Automated erythrocyte mean corpuscular h emoglobin concentration measurement (mass/volume) 32 g/dL 32-36 Automated erythrocyte distribution width ratio 15. 3 % 10.0- 14.5 Automated blood platelet count (count/volume) 69 1 0*3/uL 130-400 Automated blood platelet mean volume measurement 11.9 [foz_us] 7.4-10.4 Automated blood neutrophils/100 leukocytes 75 % 42-75 Automated blood lymphocytes/100 leukocytes 13 % 12-44 Blood monocytes/100 leukocytes 8 % 0-12 Automated blood eosinophils/100 leukocytes 4 % 0-10 Automated blood basophils/100 leukocytes 0 % 0-10 Blood neutrophils automated count (number/volume) 4.5 10*3 1.8-7.8 Blood lymphocytes automated count (number/volume) 0.8 10*3 1.0-4.0 Blood monocytes automated count (number/volume) 0. 5 10*3 0.0-1.0 Automated eosinophil count 0.2 10*3/uL 0 .0-0.3 Automated blood basophil count (count/volume) 0.0 10*3/uL 0.0-0.1 Whole blood basic metabolic panel - 12/21 03/09 06:04 Serum or plasma sodium measurement (moles/volume) 139 mmol/L 135-145 Serum or plasma potassium measurement (moles/volume) 3.6 mmol/L 3.6-5.0 Serum or plasma chloride measurement (moles/volume) 112 mmol/L 98-107 Carbon dioxide 19 mmol/L 21-32 Serum or plasma anion gap determination (moles/volume) 8 mmol/L 5-14 Serum or plasma urea nitrogen measurement (mass/volume ) 12 mg/dL 7-18 Serum or plasma creatinine measurement (mass/volume) 0.67 mg/dL 0.60-1.30 Serum or plasma urea nitrogen/creatinine mass ratio 18 NRG Serum or plasma creatinine measurement w ith calculation of estimated glomerular filtration rate > NRG Serum or plasma glucose measurement (mass/volume) 93 mg/dL 70-105 Serum or plasma calcium measurement (mass/volume) 9.7 mg/dL 8.5-10.1 Capillary blood glucose measurement by g lucometer (mass/volume) - 01/03/20 10:48 Capillary blood glucose measurement by glucometer (mas s/volume) 109 mg/dL 70-110 Complete blood count (CBC) with automate d white blood cell (WBC) differential - 01/04/20 15:45 Blood leukocytes automated count (number/volume) 6.0 10*3/uL 4.3-11.0 Blood erythrocytes automated count (number/volume) 3.10 10*6/uL 4.35-5.85 Venous blood hemoglobin measurement (mass/volume) 9.8 g/dL 11.5-16.0 Blood hematocrit (volume fraction) 31 % 35-52 Automated erythrocyte mean corpuscular volume 101 [foz_us] 80-99 Automated erythrocyte mean corpuscular h emoglobin (mass per erythrocyte) 32 pg 25-34 Automated erythrocyte mean corpuscular h emoglobin concentration measurement (mass/volume) 31 g/dL 32-36 Automated erythrocyte distribution width ratio 15. 3 % 10.0- 14.5 Automated blood platelet count (count/volume) 182 10*3/uL 130-400 Automated blood platelet mean volume measurement 11.2 [foz_us] 7.4-10.4 Automated blood neutrophils/100 leukocytes 70 % 42-75 Automated blood lymphocytes/100 leukocytes 16 % 12-44 Blood monocytes/100 leukocytes 10 % 0-12 Automated blood eosinophils/100 leukocytes 4 % 0-10 Automated blood basophils/100 leukocytes 0 % 0-10 Blood neutrophils automated count (number/volume) 4.2 10*3 1.8-7.8 Blood lymphocytes automated count (number/volume) 0.9 10*3 1.0-4.0 Blood monocytes automated count (number/volume) 0. 6 10*3 0.0-1.0 Automated eosinophil count 0.3 10*3/uL 0 .0-0.3 Automated blood basophil count (count/volume) 0.0 10*3/uL 0.0-0.1 Comprehensive metabolic panel - 01/04/20 15:45 Serum or plasma sodium measurement (moles/volume) 141 mmol/L 135-145 Serum or plasma potassium measurement (moles/volume) 3.6 mmol/L 3.6-5.0 Serum or plasma chloride measurement (moles/volume) 110 mmol/L 98-107 Carbon dioxide 22 mmol/L 21-32 Serum or plasma anion gap determination (moles/volume) 9 mmol/L 5-14 Serum or plasma urea nitrogen measurement (mass/volume ) 14 mg/dL 7-18 Serum or plasma creatinine measurement (mass/volume) 0.76 mg/dL 0.60-1.30 Serum or plasma urea nitrogen/creatinine mass ratio 18 NRG Serum or plasma creatinine measurement w ith calculation of estimated glomerular filtration rate > NRG Serum or plasma glucose measurement (mass/volume) 86 mg/dL 70-105 Serum or plasma calcium measurement (mass/volume) 9.8 mg/dL 8.5-10.1 Serum or plasma total bilirubin measurement (mass/volu me) 0.4 mg/dL 0.1-1.0 Serum or plasma alkaline phosphatase kaitlynn surement (enzymatic activity/volume) 74 U/L 40-136 Serum or plasma aspartate aminotransfera se measurement (enzymatic activity/volume) 24 U/L 5-34 Serum or plasma alanine aminotransferase measurement (enzymatic activity/volume) 17 U/L 0-55 Serum or plasma protein measurement (mass/volume) 5.6 g/dL 6.4-8.2 Serum or plasma albumin measurement (mass/volume) 3.0 g/dL 3.2-4.5 CALCIUM CORRECTED 10.6 mg/dL 8.5-10.1 Magnesium - 01/04/20 15:45 Magnesium 1.5 mg/dL 1.6-2.4 Serum or plasma C reactive protein measu rement (mass/volume) - 01/04/20 15:45 Serum or plasma C reactive protein measurement (mass/v olume) 3.65 mg/dL 0.00-0.50 Complete urinalysis with reflex to cultu re - 01/04/20 15:52 Urine color determination YELLOW NRG Urine clarity determination TURBID NR G Urine pH measurement by test strip 6.0 5-9 Specific gravity of urine by test strip 1.020 1.016-1.022 Urine protein assay by test strip, semi-quantitative NEGATIVE NEGATIVE Urine glucose detection by automated test strip NE GATIVE NEGATIVE Erythrocytes detection in urine sediment by light micr oscopy TRACE-I NEGATIVE Urine ketones detection by automated test strip NE GATIVE NEGATIVE Urine nitrite detection by test strip POSITIVE NEGATIVE Urine total bilirubin detection by test strip NEGA TIVE NEGATIVE Urine urobilinogen measurement by automated test strip (mass/volume) 0.2 mg/dL < = 1.0 Urine leukocyte esterase detection by dipstick 2+ NEGATIVE Automated urine sediment erythrocyte cou nt by microscopy (number/high power field) NONE NRG Automated urine sediment leukocyte count by microscopy (number/high power field) TNTC NRG Bacteria detection in urine sediment by light microsco py LARGE NRG Squamous epithelial cells detection in u rine sediment by light microscopy NONE NRG Crystals detection in urine sediment by light microsco py NONE NRG Casts detection in urine sediment by light microscopy NONE NRG Mucus detection in urine sediment by light microscopy NEGATIVE NRG Complete urinalysis with reflex to culture YES NRG Bacterial urine culture - 01/04/20 15:52 Bacterial urine culture [id number] NRG COLONY COUNT >100,000/ML NRG FTX;REPORTABLE ID/SUSCEPTIBILITY REPORTED 01/07 12: 05 NRG FREE TEXT ENTRY 2 PRELIM RAPID ID BY VCP 01-05-20 111 NRG FREE TEXT ENTRY 3 RML ID CONFIRMED 01-06-20 15:05 NRG Dirithromycin susceptibility test by dis k diffusion - 01/04/20 15:52 Gentamicin susceptibility test by minimum inhibitory c oncentration <= NRG Trimethoprim/sulfamethoxazole susceptibi lity test by minimum inhibitoryconcentration <= NRG Levofloxacin susceptibility test by minimum inhibitory concentration <= NRG Ampicillin susceptibility test by minimum inhibitory c oncentration R NRG Cefazolin susceptibility test by minimum inhibitory co ncentration <= NRG Ceftriaxone susceptibility test by minimum inhibitory concentration <= NRG Ciprofloxacin susceptibility test by minimum inhibitor y concentration <= NRG Meropenem susceptibility test by minimum inhibitory co ncentration <= NRG Nitrofurantoin susceptibility test by mi nimum inhibitory concentration 64 NRG Amoxicillin and clavulanate potassium susc JUDE <= NRG Dirithromycin susceptibility test by dis k diffusion - 01/04/20 15:52 Gentamicin susceptibility test by minimum inhibitory c oncentration <= NRG Trimethoprim/sulfamethoxazole susceptibi lity test by minimum inhibitoryconcentration <= NRG Levofloxacin susceptibility test by minimum inhibitory concentration <= NRG Ampicillin susceptibility test by minimum inhibitory c oncentration R NRG Cefazolin susceptibility test by minimum inhibitory co ncentration <= NRG Ceftriaxone susceptibility test by minimum inhibitory concentration <= NRG Ciprofloxacin susceptibility test by minimum inhibitor y concentration <= NRG Meropenem susceptibility test by minimum inhibitory co ncentration <= NRG Nitrofurantoin susceptibility test by mi nimum inhibitory concentration 32 NRG Amoxicillin and clavulanate potassium susc JUDE <= NRG Encounters ACCT No. Visit Date/Time Discharge Status Pt. Type Provider Facility Loc./Unit Complaint [id number] 12/08/2014 15:10:00 12/08/2014 23:59: 59 CLS Outpatient ARTURO CHOWDHURY APRN [id number] 08/27/2014 12:02:00 08/27/2014 23:59: 59 CLS Outpatient TAMMY MEZA DO [id number] 09/04/2013 13:42:00 09/04/2013 23:59: 59 CLS Outpatient TAMMY MEZA DO [id number] 07/17/2013 16:19:00 07/17/2013 23:59: 59 CLS Outpatient AVA BRYAN DDS [id number] 07/16/2012 16:22:00 07/16/2012 23:59:5 9 CLS Outpatient [id number] 01/04/2020 15:40:00 22:15:00 DIS Outpatient CRISTA PAEZ, LUIS Kim [facility] ER WEAKNESS [id number] 2019 14:11:00 12:00:00 DIS Inpatient AWA NIXON MD [facility] 4TH SEIZURE [id number] 12/04/2019 16:15:00 15:45:00 DIS Inpatient AWA NIXON MD [facility] 4TH SYNOCOPE [id number] 11/01/2019 12:39:00 16:45:00 DIS Inpatient RASHEED BISHOP DO, V [facility] IRF DEBILITY [id number] 10/31/2019 11:15:00 019 18:15:00 DIS Emergency JORDI ROLLINS SITE OPERATIONS MANAGER [facility] ER FALL [id number] 04/23/2019 17:28:00 019 20:14:00 DIS Emergency JORDI ROLLINS SITE OPERATIONS MANAGER [facility] ER PRIETO,DIZZY,CONFUSED [id number] 09/15/2018 16:00:00 018 12:45:00 DIS Inpatient AWA NIXON MD [facility] 4TH ELEVATED LACTIC ACID,FE VALENTÍN [id number] 07/22/2018 22:20:00 018 01:06:00 DIS Emergency CHIQUITA CHANDRA LIAM Mondragon [facility] ER SYNCOPAL EPISODE [id number] 02/17/2018 16:20:00 018 15:10:00 DIS Inpatient AWA NIXON MD [facility] 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,FALL ROSELINE E LEVEL, CONFUSION [id number] 05/04/2017 22:14:00 017 11:23:00 DIS Inpatient AWA NIXON MD [facility] 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 [id number] 11/02/2015 09:46:00 015 23:59:59 CLS Outpatient AWA NIXON MD [facility] RAD SCREENING [id number] 02/05/2014 07:31:00 014 23:59:59 CLS Outpatient JULIENNE MILLIGAN MD [facility] PREOP FOLLOW UP [id number] 10/04/2013 07:00:00 013 11:30:00 DIS Outpatient JULIENNE MILLIGAN MD [facility] HISTORY OF POLYPS [id number] 10/02/2013 09:29:00 013 23:59:59 CLS Outpatient JULIENNE MILLIGAN MD [facility] PREOP HISTORY OF POLYPS [id number] 11/02/2015 09:45:00 Document Registration [id number] 08/28/2012 09:14:00 Document Registration [id number] 06/25/2010 11:26:00 Document Registration [id number] 06/04/2010 07:53:00 Document Registration [id number] 06/25/2019 11:00:00 06/25/2019 23:59:5 9 CLS [facility]
== END 2020-01-03 12:00 | DRG 101 ==
LOC: EDUNIT# 12:54 → ER 12:55 → UNDOADMOB 15:51 → 4TH 15:51 → OBSVTOIN 15:51 → INTOOBSV 15:51 → ICU 18:00 → 4TH 18:00 → ICU 19:32 → OBSVTOIN 12-26 14:11 → ICU 12-27 08:09 → CSD 12-27 08:09 → 4TH 12-27 18:29 → UNDODISIN 01-03 12:00
PROVIDERS: ADMIT Family Medicine; ATTEND Family Medicine
DX: G40.909 Epilepsy, unspecified, not intractable, without status epilepticus (principal); R00.0 Tachycardia, unspecified; I10 Essential (primary) hypertension; E78.00 Pure hypercholesterolemia, unspecified; F41.9 Anxiety disorder, unspecified; F32.9 Major depressive disorder, single episode, unspecified; M19.91 Primary osteoarthritis, unspecified site; M10.9 Gout, unspecified; Z66 Do not resuscitate; R53.83 Other fatigue; T42.4X5A Adverse effect of benzodiazepines, initial encounter; D64.9 Anemia, unspecified; Z96.653 Presence of artificial knee joint, bilateral
CPT/HCPCS: 36415; 51702; 70450; 70551; 71045; 73030; 74230; 76937; 80048; 80053; 81000; 82805; 82962; 83735; 83880; 84100; 84443; 84484; 85007; 85025; 85027; 87040; 87081; 87804; 93005; 96365; 96375; G0378

== ENCOUNTER 2020-01-04 15:39 | Emergency (ER) | payer MEDICARE, MEDICAID ==
[~2020-01-04] VITALS: Ht 160 cm; Wt 92.7 kg
[~2020-01-04 15:39] MED LIST changes: +ACET325T49 PO; +ENLP5T PO; +LEVE10006 PO; +MECL-106 PO; -MECL-149 PO; +POTA10TA6 PO
[2020-01-04] MEDS ORDERED: LORazepam INJ 2 MG/ML (ATIVAN) VIAL ONE ×2 (15:47→18:23)
[2020-01-04] MEDS ORDERED: LORazepam INJ 2 MG/ML (ATIVAN) VIAL IVP ONE ×2 (16:00→18:30)
[2020-01-04 16:02] LABS: BILIRUBIN,URINE NEGATIVE (NEGATIVE); CLARITY,URINE TURBID; COLOR,URINE YELLOW; GLUCOSE, URINE (UA) NEGATIVE (NEGATIVE); KETONES,URINE NEGATIVE (NEGATIVE); LEUKOCYTE ESTERASE ,URINE 2+ (NEGATIVE); NITRITE,URINE POSITIVE (NEGATIVE); PROTEIN,URINE NEGATIVE (NEGATIVE)
[2020-01-04 16:02] LABS: BASOPHILS % (AUTO) 0 % (0-10); EOSINOPHILS # (AUTO) 0.3 10^3/uL (0.0-0.3); EOSINOPHILS % (AUTO) 4 % (0-10); HEMATOCRIT 31 % (35-52); HEMOGLOBIN 9.8 G/DL (11.5-16.0); LYMPHOCYTES # (AUTO) 0.9 X 10^3 (1.0-4.0); LYMPHOCYTES % (AUTO) 16 % (12-44); MEAN CORPUSCULAR HEMOGLOBIN 32 PG (25-34); MEAN CORPUSCULAR HGB CONC 31 G/DL (32-36); MEAN CORPUSCULAR VOLUME 101 FL (80-99); MEAN PLATELET VOLUME 11.2 FL (7.4-10.4); MONOCYTES # (AUTO) 0.6 X 10^3 (0.0-1.0); MONOCYTES % (AUTO) 10 % (0-12); NEUTROPHILS # (AUTO) 4.2 X 10^3 (1.8-7.8); NEUTROPHILS % (AUTO) 70 % (42-75); PLATELET COUNT 182 10^3/uL (130-400); RED CELL DISTRIBUTION WIDTH 15.3 % (10.0-14.5)
[2020-01-04 16:16] LABS: BACTERIA,URINE LARGE /HPF; WBC,URINE TNTC /HPF
--- NOTE | 2020-01-04 16:36 | Diagnostic Imaging Report ---
PROCEDURE: CT head without contrast. TECHNIQUE: Multiple contiguous axial images were obtained through the brain without the use of intravenous contrast. Auto Exposure Controls were utilized during the CT exam to meet ALARA standards for radiation dose reduction. INDICATION: Altered mental status. COMPARISON: CT head of 12/25/2019. FINDINGS: No hyperdense hemorrhage or space-occupying mass. No hydrocephalus or midline shift. Gard[place]-white matter differentiation shows no features of acute territorial infarct. Global atrophy with periventricular white matter hypoattenuation is unchanged. No acute skull fracture. Paranasal sinuses and mastoid air cells are clear. IMPRESSION: No acute intracranial process by CT. Dictated by: Dictated on workstation # [id number]
[2020-01-04 16:37] LABS: ALANINE AMINOTRANSFERASE 17 U/L (0-55); ALKALINE PHOSPHATASE 74 U/L (40-136); BILIRUBIN,TOTAL 0.4 MG/DL (0.1-1.0); BUN/CREATININE RATIO 18; CALCIUM 9.8 MG/DL (8.5-10.1); CARBON DIOXIDE 22 MMOL/L (21-32); CHLORIDE 110 MMOL/L (98-107); CREATININE SERUM 0.76 MG/DL (0.60-1.30); GFR ESTIMATED > 60; GLUCOSE 86 MG/DL (70-105); MAGNESIUM 1.5 MG/DL (1.6-2.4); POTASSIUM 3.6 MMOL/L (3.6-5.0); SODIUM 141 MMOL/L (135-145); TOTAL PROTEIN 5.6 GM/DL (6.4-8.2)
[2020-01-04] MEDS ORDERED: cefTRIAXone FOR IV USE 1,000 MG in WATER (STERILE) FOR INJECTION 10 ML IV ONE (16:45)
[2020-01-04] MEDS ORDERED: NS IV 1000 ML 1,000 ML IV ONE (17:01)
[2020-01-04] MEDS ORDERED: MAGNESIUM 1 GM/100 ML IVPB 100 ML IV ONE (17:15)
[2020-01-04] MEDS ORDERED: LEVETIRACETAM INJECTION 1,000 MG in NS (IVPB) 100 ML IV ONE (17:15)
--- NOTE | 2020-01-04 18:57 | NUR ---
Report received from SIN Ortega at this time so assume care.
--- NOTE | 2020-01-04 20:21 | ED Neurological Problem ---
General Chief Complaint: Neurological Problems Stated Complaint: WEAKNESS Nursing Triage Note: pt brought in by [facility] from [facility] with complaint of left sided weakness and left sided twitching Nursing Sepsis Screen: No Definite Risk Source: patient, family Exam Limitations: no limitations History of Present Illness Date Seen by Provider: Jan 04, 2020 Time Seen by Provider: 15:40 Initial Comments This 84 her old woman presents to the emergency room with seizure like activity on the left side. She had been admitted to this facility on December 25 with new onset seizure. At that time she had generalized seizures. She was started on Keppra and eventually dismissed back to the [facility]. Today she started having twitching of the left side of her face and upper extremity that progressed through the day. She is still alert and able to answer questions. Symptoms are present despite taking Keppra. Family reports that her functional capacity was good prior to December 25. She was able to feed and dress herself and perform ADLs and she was conversational. Allergies and Home Medications Allergies Coded Allergies: No Known Drug Allergies (Unverified , 10/04/13) Home Medications Acetaminophen 325 Mg Tablet, 650 MG PO 0000,0600,1200,1800, (Reported) Enalapril Maleate 5 Mg Tablet, 5 MG PO DAILY Prescribed by: AWA NIXON on 01/03/20 07 Levetiracetam 1,000 Mg Tablet, 1,000 MG PO BID Prescribed by: AWA NIXON on 01/03/20 0741 Meclizine HCl 25 Mg Tablet, 25 MG PO TID PRN for DIZZINESS, (Reported) Potassium Chloride 10 Meq Tablet.er, 10 MEQ PO DAILY@0700 Prescribed by: AWA NIXON on 01/03/20 0741 Saccharomyces Boulardii 250 Mg Capsule, 250 MG PO 0800,1600, (Reported) Patient Home Medication List Home Medication List Reviewed: Yes Review of Systems Review of Systems Constitutional: no symptoms reported Eyes: No Symptoms Reported Ears, Nose, Mouth, Throat: no symptoms reported Respiratory: no symptoms reported Cardiovascular: no symptoms reported Gastrointestinal: no symptoms reported Genitourinary: no symptoms reported : No Musculoskeletal: no symptoms reported Skin: no symptoms reported Psychiatric/Neurological: See HPI Endocrine: No Symptoms Reported Hematologic/Lymphatic: No Symptoms Reported Past Aflbnyv-Njdruj-Pwtzja Hx Past Med/Social Hx: Reviewed Nursing Past Med/Soc Hx Patient Social History Alcohol Use: Denies Use Recreational Drug Use: No Smoking Status: Never a Smoker 2nd Hand Smoke Exposure: No Recent Foreign Travel: No Contact w/Someone Who Travel: No Recent Infectious Disease Expo: No Recent Hopitalizations: No Immunizations Up To Date Tetanus Booster (TDap): Unknown PED Vaccines UTD: No Date of Pneumonia Vaccine: Nov 20, 2018 Date of Influenza Vaccine: Oct 26, 2019 Seasonal Allergies Seasonal Allergies: No Past Medical History Surgeries: Yes (henry total knee replacement; rectal fistula) Gallbladder, Hysterectomy, Orthopedic Respiratory: No Currently Using CPAP: No Currently Using BIPAP: No Cardiac: Yes (edema to lower ext, orthostatic hypotension) High Cholesterol, Hypertension Neurological: Yes Seizure Disorder : No 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 TESTER 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: Hysterectomy Genitourinary: No Gastrointestinal: Yes C-Diff Musculoskeletal: Yes (ARTHRITIS) Arthritis, Gout Endocrine: No HEENT: Yes Cataract Hearing Impairment: Hard of Hearing 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 Did You Recieve Any Treatments: No Psychosocial: Yes Anxiety, Depression Integumentary: Yes (SHINGLES) Recent Skin Changes Blood Disorders: No Family Medical History Reviewed Nursing Family Hx Arthritis 19 MOTHER CVA 19 FATHER Cardiovascular disease G8 SISTER FH: colon cancer 19 MOTHER FH: prostate cancer 19 FATHER Irritable bowel syndrome daughter Renal stone 19 FATHER daughter No Pertinent Family Hx Physical Exam Vital Signs Vital Signs - First Documented 01/04/20 15:39 Temp 36.4 Pulse 64 Resp 24 B/P (MAP) 155/120 (132) Pulse Ox 96 O2 Delivery Room Air Capillary Refill : Less Than 3 Seconds Height, Weight, BMI Height: 5'5.00" Weight: 170lbs. 0.0oz. 77.319849et; 36.00 BMI Method:Estimated General Appearance: WD/WN, mild distress HEENT: PERRL/EOMI, normal ENT inspection, other (mucous membranes dry) Neck: normal inspection Respiratory: lungs clear, normal breath sounds, no respiratory distress, no accessory muscle use Cardiovascular: regular rate, rhythm, no edema, no murmur Gastrointestinal: non tender, soft Extremities: normal inspection, no pedal edema Neurologic/Psychiatric: alert, other (patient is alert and able to answer questions appropriately with some difficulty due to the twitching of her face and left upper extremity. The convulsions are intermittent. She can sometimes follow commands with hand gripping and leg movements between convulsions. Speech appears appropriate other than dysarthria from the twitches) Crainal Nerves: PERRL Motor/Sensory: no motor deficit Skin: normal color, warm/dry Progress/Results/Core Measures Results/Orders Lab Results Laboratory Tests Test 01/04/20 15:45 01/04/20 15:52 Range/Units White Blood Count 6.0 4.3-11.0 10^3/uL Red Blood Count 3.10 L 4.35-5.85 10^6/uL Hemoglobin 9.8 L 11.5-16.0 G/DL Hematocrit 31 L 35-52 % Mean Corpuscular Volume 101 H 80-99 FL Mean Corpuscular Hemoglobin 32 25-34 PG Mean Corpuscular Hemoglobin Concent 31 L 32-36 G/DL Red Cell Distribution Width 15.3 H 10.0-14.5 % Platelet Count 182 130-400 10^3/uL Mean Platelet Volume 11.2 H 7.4-10.4 FL Neutrophils (%) (Auto) 70 42-75 % Lymphocytes (%) (Auto) 16 12-44 % Monocytes (%) (Auto) 10 0-12 % Eosinophils (%) (Auto) 4 0-10 % Basophils (%) (Auto) 0 0-10 % Neutrophils # (Auto) 4.2 1.8-7.8 X 10^3 Lymphocytes # (Auto) 0.9 L 1.0-4.0 X 10^3 Monocytes # (Auto) 0.6 0.0-1.0 X 10^3 Eosinophils # (Auto) 0.3 0.0-0.3 10^3/uL Basophils # (Auto) 0.0 0.0-0.1 10^3/uL Sodium Level 141 135-145 MMOL/L Potassium Level 3.6 3.6-5.0 MMOL/L Chloride Level 110 H 98-107 MMOL/L Carbon Dioxide Level 22 21-32 MMOL/L Anion Gap 9 5-14 MMOL/L Blood Urea Nitrogen 14 7-18 MG/DL Creatinine 0.76 0.60-1.30 MG/DL Estimat Glomerular Filtration Rate > 60 BUN/Creatinine Ratio 18 Glucose Level 86 70-105 MG/DL Calcium Level 9.8 8.5-10.1 MG/DL Corrected Calcium 10.6 H 8.5-10.1 MG/DL Magnesium Level 1.5 L 1.6-2.4 MG/DL Total Bilirubin 0.4 0.1-1.0 MG/DL Aspartate Amino Transf (AST/SGOT) 24 5-34 U/L Alanine Aminotransferase (ALT/SGPT) 17 0-55 U/L Alkaline Phosphatase 74 40-136 U/L C-Reactive Protein High Sensitivity 3.65 H 0.00-0.50 MG/DL Total Protein 5.6 L 6.4-8.2 GM/DL Albumin 3.0 L 3.2-4.5 GM/DL Urine Color YELLOW Urine Clarity TURBID Urine pH 6.0 5-9 Urine Specific [place] 1.020 1.016-1.022 Urine Protein NEGATIVE NEGATIVE Urine Glucose (UA) NEGATIVE NEGATIVE Urine Ketones NEGATIVE NEGATIVE Urine Nitrite POSITIVE H NEGATIVE Urine Bilirubin NEGATIVE NEGATIVE Urine Urobilinogen 0.2 < = 1.0 MG/DL Urine Leukocyte Esterase 2+ H NEGATIVE Urine RBC (Auto) TRACE-I NEGATIVE Urine RBC NONE /HPF Urine WBC TNTC H /HPF Urine Squamous Epithelial Cells NONE /HPF Urine Crystals NONE /LPF Urine Bacteria LARGE H /HPF Urine Casts NONE /LPF Urine Mucus NEGATIVE /LPF Urine Culture Indicated YES My Orders Orders - LUIS TOBIN MD Cbc With Automated Diff (01/04/20 15:46) Comprehensive Metabolic Panel (01/04/20 15:46) Hs C Reactive Protein (01/04/20 15:46) Ua Culture If Indicated (01/04/20 15:46) Ed Iv/Invasive Line Start (01/04/20 15:46) Ct Head Wo (01/04/20 15:46) Lorazepam Injection (Ativan Injection) (01/04/20 16:00) Magnesium (01/04/20 15:51) Lorazepam Injection (Ativan Injection) (01/04/20 15:47) Urine Culture (01/04/20 15:52) Ceftriaxone For Iv Use (Rocephin For I (01/04/20 16:45) Magnesium 1 Gm/100 Ml Ivpb (Magnesium John (01/04/20 17:15) Ns Iv 1000 Ml (Sodium Chloride 0.9%) (01/04/20 17:01) Levetiracetam Injection (Keppra Injectio (01/04/20 17:15) Lorazepam Injection (Ativan Injection) (01/04/20 18:30) Lorazepam Injection (Ativan Injection) (01/04/20 18:23) Medications Given in ED Current Medications Medications Dose Ordered Sig/Sunita Route Start Time Stop Time Status Last Admin Dose Admin Ceftriaxone Sodium 1000 mg/ Sterile Water 10 ml @ 200 mls/hr ONCE ONCE IV 01/04/20 16:45 01/04/20 16:47 DC 01/04/20 17:29 200 MLS/HR Levetiracetam 1000 mg/Sodium Chloride 110 ml @ 440 mls/hr ONCE ONCE IV 01/04/20 17:15 01/04/20 17:29 DC 01/04/20 17:30 440 MLS/HR Lorazepam 0.25 mg ONCE ONCE IVP 01/04/20 18:30 01/04/20 18:31 DC 01/04/20 18:35 0.25 MG Lorazepam 0.5 mg ONCE ONCE IVP 01/04/20 16:00 01/04/20 16:01 DC 01/04/20 15:50 0.5 MG Magnesium Sulfate/ Dextrose 100 ml @ 100 mls/hr ONCE ONCE IV 01/04/20 17:15 01/04/20 18:14 DC 01/04/20 17:50 100 MLS/HR Sodium Chloride 1,000 ml @ 0 mls/hr Q0M ONCE IV 01/04/20 17:01 01/04/20 17:03 DC 01/04/20 17:29 1,000 MLS/HR Vital Signs/I&O 01/04/20 15:39 Temp 36.4 Pulse 64 Resp 24 B/P (MAP) 155/120 (132) Pulse Ox 96 O2 Delivery Room Air Blood Pressure Mean: 132 Progress Progress Note : Time: 20:14 Progress Note Patient received Ativan 0.5 mg IV to control the tremors and twitches. This did stop the focal seizure-like activity but she was fairly sedated afterwards. CT of the head was obtained and revealed no new abnormalities. Urinary tract infection was identified and Rocephin was administered. Hypomagnesemia was also identified and magnesium replacement was started. Patient was hydrated with a liter of IV normal saline. Patient received Keppra 1000 mg by IV route. She had some refractory tremoring after that and was further treated with Ativan 0.2 5 mg IV. I discussed the case with Dr. Marin, admitting physician this evening. She did not feel there was much to be gained from admitting to this facility because treatment of the urinary tract infection and Ativan therapy can be administered in the fpc. I discussed options with the family which included returning to the [facility]pc with treatment including Ativan and antibiotics, hospice care, or referral to a tertiary care facility with neurology services. They elected transferred to [facility] in [place] for neurologic assessment. I discussed the case with Dr. Cast, neurologist at [facility] in [place] at 18:24. She feels patient would be appropriate for transfer for a formal neurologic evaluation and possibly EEG. Family is agreeable. Case was further discussed with Dr. James. He graciously accepts the admission. Diagnostic Imaging Diagonstic Imaging: CT Plain Films/CT/US/NM/MRI: head Comments CT head report reviewed. See report below: NAME: JESSICA PAYAN [facility] REC#: [id number] PT STATUS: REG ER : 1935 PHYSICIAN: LUIS TOBIN MD ADMIT DATE: 01/04/20/ER Signed Date of Exam:01/04/20 CT HEAD WO PROCEDURE: CT head without contrast. TECHNIQUE: Multiple contiguous axial images were obtained through the brain without the use of intravenous contrast. Auto Exposure Controls were utilized during the CT exam to meet ALARA standards for radiation dose reduction. INDICATION: Altered mental status. COMPARISON: CT head of 12/25/2019. FINDINGS: No hyperdense hemorrhage or space-occupying mass. No hydrocephalus or midline shift. Garduno-white matter differentiation shows no features of acute territorial infarct. Global atrophy with periventricular white matter hypoattenuation is unchanged. No acute skull fracture. Paranasal sinuses and mastoid air cells are clear. IMPRESSION: No acute intracranial process by CT. Dictated by: Dictated on workstation # [id number] Dict: 01/04/20 1612 Trans: 01/04/201653 [facility] [id number] Interpreted by: CARMEN VARGAS MD Electronically signed by: CARMEN VARGAS MD 01/04/201653 Departure Impression Primary Impression: Focal seizure Additional Impressions: Urinary tract infection Qualified Codes: N39.0 - Urinary tract infection, site not specified Hypomagnesemia Disposition: 02 XFER SHT-TRM HOSP Condition: Improved Transfer Transfer Reason: Exceeds level of care Time Spoke to Accepting Phy: 20:05 Transfer Progress Notes Transfer accepted by Dr. James at [facility] in [place]. Transfer Facility: [facility] Method of Transfer: EMS Departure-Patient Inst. Referrals: AWA NIXON MD (PCP/Family) Primary Care Physician LUIS TOBIN MD Jan 04, 2020 20:21
--- NOTE | 2020-01-04 20:30 | NUR ---
Room assignment and report number received at this time.
--- NOTE | 2020-01-04 21:15 | NUR ---
[facility] accepted transfer.
[2020-01-04 22:12] VITALS: BP 155/92
== END 2020-01-04 22:15 | disposition short-term general hospital (02) ==
LOC: EDUNIT# 15:39 → ER 15:40
DX: G40.909 Epilepsy, unspecified, not intractable, without status epilepticus (principal); N39.0 Urinary tract infection, site not specified; E83.42 Hypomagnesemia; I10 Essential (primary) hypertension; Z96.653 Presence of artificial knee joint, bilateral; Z85.05 Personal history of malignant neoplasm of liver; Z80.0 Family history of malignant neoplasm of digestive organs; Z82.49 Family history of ischemic heart disease and other diseases of the circulatory system
CPT/HCPCS: 36415; 70450; 80053; 81000; 83735; 85025; 86141; 87077; 87088; 87186; 96361; 96365; 96366; 96367; 96375; 96376